=== PATIENT | female | born 1965 | race Caucasian/White ===

== ENCOUNTER 2023-11-05 14:19 | Outpatient (AMB) | payer OTHER, MEDICAID, SELFPAY ==
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
== END 2023-11-05 14:59 | disposition home or self-care (01) ==
LOC: HO.HOP 14:20
PROVIDERS: PCP Physician Assistant Medical; Visit Provider Clinical Nurse Specialist Psychiatric/Mental Health
DX: F43.12 Post-traumatic stress disorder, chronic (principal); F33.9 Major depressive disorder, recurrent, unspecified; F41.1 Generalized anxiety disorder
CPT/HCPCS: 99215

== ENCOUNTER → 2023-11-05 14:19 | Outpatient (BNVA) | payer MEDICARE, MEDICAID, SELFPAY | PROVIDERS: PCP Physician Assistant Medical; Visit Provider Clinical Nurse Specialist Psychiatric/Mental Health ==

== ENCOUNTER 2023-12-03 14:02 | Outpatient (AMB) | payer OTHER, MEDICAID, SELFPAY ==
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
== END 2023-12-03 14:46 | disposition home or self-care (01) ==
LOC: HO.HOP 14:02
PROVIDERS: PCP Physician Assistant Medical; Visit Provider Clinical Nurse Specialist Psychiatric/Mental Health
DX: F41.1 Generalized anxiety disorder (principal); F43.12 Post-traumatic stress disorder, chronic; F33.1 Major depressive disorder, recurrent, moderate
CPT/HCPCS: 99214

== ENCOUNTER → 2023-12-03 14:02 | Outpatient (BNVA) | payer OTHER, MEDICAID, SELFPAY | PROVIDERS: PCP Physician Assistant Medical; Visit Provider Clinical Nurse Specialist Psychiatric/Mental Health ==

== ENCOUNTER 2023-12-22 15:46 | Outpatient (AMB) | payer OTHER, MEDICAID, SELFPAY ==
--- OUTSIDE RECORDS SUMMARY | 2023-12-22 15:48 | XMS_ITS | Continuity of Care Document ---
Author Organization [facility] ter Address [address] [place] [id number] Care Team Providers Care Food Safety Manager Name Role Phone Diana Martinez PA-C Primary Care Physician Encounter [facility] [place] Date(s): 05/27/21 - 07/04/[address] [id number] Attending Physician: Angel Snyder MD Admitting Physician: Angel Snyder MD Allergies, Adverse Reactions, Alerts Substance Reaction Severity Status amoxicillin rash Active morphine rash Active Vibramycin question of GI bleeding Acti ve Latex C/O: itching Active contrast media (iodine-based) 1 Active 1SOB Immunizations Given and Recorded Vaccine Date Status Refusal Reason tetanus/diphtheria/pertussis, acel(Tdap) 1 11/08/12 Given FluLaval (oldterm) 2 06/07/10 Given Tetanus Toxoid Vaccine (oldterm) 09/07/02 Given 1Admin Note: VIS GIVEN DATED 09/18 2Admin Note: [employer] JAYDEN given at school Medications atorvastatin 10 mg oral tablet 1 tablet = 10 mg, By Mouth, Daily Start Date: 10/01/18 Status: Ordered baclofen 10 mg oral tablet TK 1 T PO QID Start Date: 03/29/19 Status: Ordered gabapentin 600 mg oral tablet TK 1 AND 1/2 TS PO TID Start Date: 03/29/19 Status: Ordered hydrochlorothiazide 12.5 mg oral tablet 1 tablet = 12.5 mg, By Mouth, Daily, # 30 tablet, 0 Refills, Maintenance, 03/29/19 18:00:59 EDT Start Date: 03/29/19 Status: Ordered mirtazapine 45 mg oral tablet 1 tablet = 45 mg, By Mouth, Daily at bedtime, # 30 tablet, 0 Refills, Maintenance, 03/29/19 7:55:22EDT, Tablet Start Date: 03/29/19 Status: Ordered Plenvu oral powder for reconstitution See Instructions, complete on day before procedure, # 1,000 mL, 0 Refills, Maintenance, 11/20/20 15:40:00 EDT, [id number], Partial fill upon patient request if the prescription is for a schedule II opioid drug., complete on day before... Start Date: 11/20/20 Status: Ordered Problem List Condition Effective Dates Status Health Status Inform ant Depression(Confirmed) Active Obesity (BMI 30-39.9)(Confirmed) Active PTSD - Post-traumatic stress disorder(Confirmed) Active Labral tear and piriformis inflammation right hip(Confirmed) Active Social History Social History Type Response Smoking Status Never smoker entered on: 02/16/15 Sex Female
--- OUTSIDE RECORDS SUMMARY | 2023-12-22 15:48 | XMS_ITS | Continuity of Care Document ---
Author Organization [facility] ter Address [address] [place] [id number]- Care Team Providers Care Hand Decorator Name Role Phone Castillo BREWER, Brian W Primary Care Physician [phone] Encounter [facility] Date(s): 07/17/22 - 07/17/[address] [address]- Encounter Diagnosis Chest wall pain(Final) - 07/17/22 Discharge Disposition: A-D/C Home Attending Physician: Lonny Ornelas MD Admitting Physician: Lonny Ornelas MD Referring Physician: Not on Staff, Referring MD Allergies, Adverse Reactions, Alerts Substance Reaction [...] Note: BIOMEDICAL JAYDEN given at school Medications ARIPiprazole 5 mg oral tablet TAKE 1/2 TABLET BY MOUTH DAILY WITH FOOD. Start Date: 05/25/22 Status: Ordered atorvastatin 10 mg oral tablet 1 tablet = 10 mg, By Mouth, Daily Start Date: 10/01/18 Status: Ordered Misc Rx Misc Rx, See Instructions, # 1 each, Refills 0, Tot. Refills 0, Maintenance, Outpatient Physical Therapy - Strength and balance training, 05/26/22 13:31:00 EDT, Supply Start Date: 05/26/22 Status: Ordered sertraline 100 mg oral tablet TAKE 2 TABLETS BY MOUTH EVERY DAY Start Date: 05/25/22 Status: Ordered valsartan 40 mg oral tablet TAKE 1 TABLET BY MOUTH EVERY DAY Start Date: 05/25/22 Status: Ordered Problem List Condition Confirmation Course Effective Dates Status Health St atus Informant Depression Confirmed Active Obese class I Confirmed Active Obesity (BMI 30-39.9) Confirmed Active PTSD - Post-traumatic stress disorder Confirmed Active Labral tear and piriformis inflammation right hip Confirmed Active Results Radiology Reports * Exam Date Time Procedure Performing Provider Status 07/17/22 3:[address] Abd/Pelvis W/ IV Contrast Only Kamilah Oro; Jeffrey (Verified) Notes: (CT Abd/Pelvis W/ IV Contrast Only) Reason For Exam: LUQ AP, bloody diarrhea, ?colitis;Other: RESULT: CT Abd/Pelvis W/ IV Contrast Only CT Abd/Pelvis W/ IV Contrast Only Hx of Present Illness: pt states that she woke up in the middle of the night and had pains under her rib cage, numbness across her chest and pain in her shoulder, pt with mucous and blood coming fromrectum, had a stroke 1.5months ago and feels like nothing is right; Reason: Other:; LUQ AP, bloody diarrhea, ?colitis. TECHNIQUE: Spiral CT through the abdomen and pelvis with IV contrast formatted in 3 planes. 100 cc of Omnipaque 300 was administered intravenously. This study was performed without oral contrast. Weight-based protocol using automatic tube modulation was used to optimize exposure parameters. CTDIvol Body: 19.60 mGy, DLP Body: 1118 mGy*cm. COMPARISON: CT of abdomen and pelvis dated 05/24/2022. FINDINGS: Paper Sales Manager View Findings, Lines and Tubes: None. Visualized Chest: Lung bases are clear. No pleural effusion. The heart is normal in size. No pericardial effusion. Diaphragm: Normal. Liver: Single subcentimeter circumscribed low-density lesion likely represent cyst (in the absence of known malignancy). Gallbladder: No CT evidence of gallbladder pathology. Bile ducts: No biliary ductal dilation. Spleen: Normal. Pancreas: Normal. Adrenal glands: Normal. Kidneys and ureters: No hydronephrosis, stones, or suspicious masses. Bladder: Normal. Reproductive organs: Unremarkable. Stomach, small bowel, and large bowel: Normal. Appendix: Surgically absent. Peritoneum and retroperitoneum: No ascites or pneumoperitoneum. No omental or mesenteric lesions. Lymph nodes: No enlarged lymph nodes. Blood vessels: Normal. No aneurysm. No evidence of venous thrombosis. Abdominal and pelvic wall: Expected postoperative atrophy of the left obturator internus and externus and left piriformis muscles. Bones: No acute bony abnormality. The patient is status post left total hip arthroplasty. There is degenerative change with joint space narrowing and subchondral cysts at the right hip. There is postoperative change in the lumbar spine compatible with discectomy and fusion of L3-L5. Mild multilevel degenerative changes seen in the lower thoracic spine. IMPRESSION: No acute intra-abdominal or intrapelvic process. WSN: [id number] Ordering Physician: Page Norwood Dictated By: Tiffany Mayes MD Dictated Date/Time: 07/17/22 4:16 pm Reviewed By: Tiffany Mayes MD Signed By: Tiffany Mayes MD Signed Date/Time: 07/17/22 4:16 pm Transcribed By: EUNICE Transcribed Date/Time: 07/17/22 4:10 pm * Exam Date Time Procedure Performing Provider Status 07/17/22 11:43 AM Chest 2 Views Frontal and Lat Ailyn Armenta; Auth (Verified) Notes: (Chest 2 Views Frontal and Lat) Reason For Exam: Chest Pain;Other: RESULT: Chest 2 Views Frontal and Lat Chest 2 Views Frontal and Lat HX OF PRESENT ILLNESS: pt states that she woke up in the middle of the night and had pains under her rib cage, numbness across her chest and pain in her shoulder, pt with mucous and blood coming fromrectum, had a stroke 1.5months ago and feels like nothing is right; Reason: Chest Pain COMPARISON: 06/29/2022 FINDINGS: LINES AND TUBES: None. LUNGS AND PLEURA: Clear lungs. Normal pulmonary vascularity. No pleural effusion. No pneumothorax. HEART, MEDIASTINUM AND JENY: Heart is normal in size. Normal mediastinal and hilar contour. BONES AND SOFT TISSUES: No acute abnormality. Partially visualized ACDF hardware. IMPRESSION: No evidence of acute abnormality. WSN: [id number] Ordering Physician: Anju Doss Dictated By: Tomer Storey MD Dictated Date/Time: 07/17/22 12:07 p Reviewed By: Tomer Storey MD Signed By: Tomer Storey MD Signed Date/Time: 07/17/22 12:07 pm Transcribed By: EUNICE Transcribed Date/Time: 07/17/22 12:06 pm Vital Signs Most recent to oldest [Reference Range]: 1 2 3 Height 168 cm (07/17/22 10:52 AM) Weight 95.5 kg (07/17/22 10:52 AM) Oxygen Saturation [94-100 %] 100 % (07/17/22 4:35 PM) 98 % (07/17/22 2:12 PM) 97 % (07/17/22 12:27 PM) Pulse Rate [55-90 bpm] 98 bpm *H* (07/17/22 4:35 PM) 92 bpm *H* (07/17/22 2:12 PM) 85 bpm (07/17/22 12:27 PM) Body Mass Index [18.5-24.99 kg/m2] 33.84 kg/m2 *>HHI* (07/17/22 10:52 AM) Blood Pressure [90-138/55-84 mm Hg] 121/92mm Hg (07/17/22 4:35 PM) 139/85mm Hg *H* (07/17/22 2:12 PM) 159/108mm Hg *H* (07/17/22 12:27 PM) Respiratory Rate [16-30 br/min] 18 br/min (07/17/22 4:35 PM) 16 br/min (07/17/22 2:12 PM) 14 br/min *L* (07/17/22 12:27 PM) Temperature [96.8-100.4 DegF] 98.1 DegF (07/17/22 10:52 AM) Mode of Delivery (Oxygen) Room air (07/17/22 4:35 PM) Room air (07/17/22 2:12 PM) Room air (07/17/22 12:27 PM) Blood pressure sites Arm, left (07/17/22 4:35 PM) Arm, left (07/17/22 2:12 PM) Arm, left (07/17/22 12:27 PM) Temperature Route Oral (07/17/22 10:52 AM) Dry Weight 95.5 kg (07/17/22 10:52 AM) Weight Obtained Via Patient/family state d (07/17/22 10:52 AM) Dry Weight Obtained Via Patient/family s tated (07/17/22 10:52 AM) Social History Social History Type Response Smoking Status Never smoker entered on: 02/16/15 Sex Female EKG study * Event Display: ECG 12-Lead Authored Date: Please click on pdf link to open report * Event Display: ECG 12-Lead Authored Date: Ventricular Rate: 98 BPM Atrial Rate: 98 BPM P-R Interval: 144 ms QRS Duration: 66 ms Q-T Interval: 328 ms QTC Calculation(Bazett): 418 ms P [place]: 75 degrees R [place]: 46 degrees T [place]: 67 degrees Poor data quality, interpretation may be adversely affected Normal sinus rhythm Possible Left atrial enlargement Nonspecific ST abnormality Abnormal ECG When compared with ECG of 29-JUN-2022 12:00, Minimal criteria for Inferior infarct are no longer Present Non-specific change in ST segment in Inferior leads Confirmed by EDI SUE ([id number]) on 07/17/2022 1:33:11 PM [place]: EDI SUE Note * Page Marks: PERFORM Event Display: Patient Education Leaflets Authored Date: [id number] Acute Pain, Uncertain Cause ?? [id number] Acute Pain, Uncertain Cause Pain can be caused by many conditions that range from very minor to very serious. In some cases, though, pain comes and goes with no apparent cause. We were not able to find the exact cause for your pain. At this time there is no sign of any serious illness causing your pain. More tests may be needed to determine the cause. In many cases, pain like this goes away by itself. Home care Take any medicines as prescribed. If another medicine was not prescribed for pain, you can take an xblv-ywd-uxlkupl pain medicine such as ibuprofen or acetaminophen. Use these as directed on the label. Talk with your healthcare provider before taking emwf-fld-pnbcian pain medicine if you have a history of kidney or liver problems or bleeding in the stomach, or have heart disease. ?? Follow-up care Follow up with your??healthcare provider??or our staff as directed. ?? When to seek medical advice Call your healthcare provider for any of the following: ??? Pain changes in pattern ??? Pain doesn't lessen or gets worse ??? New symptoms appear ??? Fever??of 100.4??F (38??C) or higher,??or as directed by your healthcare provider ?? Last Reviewed Date: 2021 ?? [id number] [employer]. All rights reserved. This information is not intended as a substitute for professional medical care. Always follow your healthcare professional's instructions. ?? * Page Marks: PERFORM Event Display: Patient Education Leaflets Authored Date: [id number] Uncertain Causes of Chest Pain ?? [id number] Uncertain Causes of Chest Pain Chest pain can happen for a number of reasons. Sometimes the cause can't be determined. If your??condition does not seem serious, and your pain does not appear to be coming from your heart, your healthcare provider may recommend watching it closely. Sometimes the signs of a serious problem take more time to appear. Many problems not related to your heart can cause chest pain. These include: ??? Musculoskeletal. Costochondritis is an inflammation of the tissues around the ribs that can occur from trauma or overuse injuries, or a strain of the muscles of the chest wall. ??? Respiratory. Pneumonia, collapsed lung (pneumothorax), or inflammation of the lining of the chest and lungs (pleurisy). ??? Gastrointestinal. Esophageal reflux, heartburn, ulcers, or gallbladder disease. ??? Anxiety and panic disorders ??? Nerve compression and inflammation ??? Rare problems such as aortic aneurysm or aortic dissection (a swelling of the large artery coming out of the heart or a tear in the wall of the artery), or pulmonary embolism (a blood clot in the lungs). Home care After your visit, follow these recommendations: ??? Rest today and avoid strenuous activity. ??? Take any prescribed medicine as directed. ??? Be aware of any recurrent chest pain and notice any changes ?? Follow-up care Follow up with your healthcare provider if you don't start to feel better within 24 hours, or as advised. ?? Call 911 Call 911 if any of these occur: ??? A change in the type of pain: if it feels different, becomes more severe, lasts longer, or begins to spread into your shoulder, arm, neck, jaw or back ??? Shortness of breath or increased pain with breathing ??? Weakness, dizziness, or fainting ??? Rapid heartbeat ??? Crushing sensation in your chest ??? Coughing up more than a small amount of blood. ?? When to seek medical advice Call your healthcare provider right away if any of the following occur: ??? Cough with dark coloredsputum (phlegm) or small amount of blood ??? Fever of 100.4??F??(38??C) or higher, or as directed by your healthcare provider ??? Swelling, pain or redness in one leg ?? Last Reviewed Date: 2021 ?? [id number] [employer]. All rights reserved. This information is not intended as a substitute for professional medical care. Always follow your healthcare professional's instructions. ?? * KIMMIE De La Rosa S: Tomer Conte MD: VERIFY Event Display: Result: Authored Date: [id number] Chest 2 Views Frontal and Lat HX OF PRESENT ILLNESS: pt states that she woke up in the middle of the night and had pains under her rib cage, numbness across her chest and pain in her shoulder, pt with mucous and blood coming fromrectum, had a stroke 1.5months ago and feels like nothing is right; Reason: Chest Pain COMPARISON: 06/29/2022 FINDINGS: LINES AND TUBES: None. LUNGS AND PLEURA: Clear lungs. Normal pulmonary vascularity. No pleural effusion. No pneumothorax. HEART, MEDIASTINUM AND JENY: Heart is normal in size. Normal mediastinal and hilar contour. BONES AND SOFT TISSUES: No acute abnormality. Partially visualized ACDF hardware. IMPRESSION: No evidence of acute abnormality. WSN: [id number] Ordering Physician: Anju Doss Dictated By: Tomer Storey MD Dictated Date/Time: 07/17/22 12:07 p Reviewed By: Tomer Storey MD Signed By: Tomer Storey MD Signed Date/Time: 07/17/22 12:07 pm Transcribed By: EUNICE Transcribed Date/Time: 07/17/22 12:[address] Abdomen and Pelvis W contrast IV * KIMMIE De La Rosa S: Tiffany Grimm MD: VERIFY Event Display: Result: Authored Date: [id number] CT Abd/Pelvis W/ IV Contrast Only Hx of Present Illness: pt states that she woke up in the middle of the night and had pains under her rib cage, numbness across her chest and pain in her shoulder, pt with mucous and blood coming fromrectum, had a stroke 1.5months ago and feels like nothing is right; Reason: Other:; LUQ AP, bloody diarrhea, ?colitis. TECHNIQUE: Spiral CT through the abdomen and pelvis with IV contrast formatted in 3 planes. 100 cc of Omnipaque 300 was administered intravenously. This study was performed without oral contrast. Weight-based protocol using automatic tube modulation was used to optimize exposure parameters. CTDIvol Body: 19.60 mGy, DLP Body: 1118 mGy*cm. COMPARISON: CT of abdomen and pelvis dated 05/24/2022. FINDINGS: Paper Sales Manager View Findings, Lines and Tubes: None. Visualized Chest: Lung bases are clear. No pleural effusion. The heart is normal in size. No pericardial effusion. Diaphragm: Normal. Liver: Single subcentimeter circumscribed low-density lesion likely represent cyst (in the absence of known malignancy). Gallbladder: No CT evidence of gallbladder pathology. Bile ducts: No biliary ductal dilation. Spleen: Normal. Pancreas: Normal. Adrenal glands: Normal. Kidneys and ureters: No hydronephrosis, stones, or suspicious masses. Bladder: Normal. Reproductive organs: Unremarkable. Stomach, small bowel, and large bowel: Normal. Appendix: Surgically absent. Peritoneum and retroperitoneum: No ascites or pneumoperitoneum. No omental or mesenteric lesions. Lymph nodes: No enlarged lymph nodes. Blood vessels: Normal. No aneurysm. No evidence of venous thrombosis. Abdominal and pelvic wall: Expected postoperative atrophy of the left obturator internus and externus and left piriformis muscles. Bones: No acute bony abnormality. The patient is status post left total hip arthroplasty. There is degenerative change with joint space narrowing and subchondral cysts at the right hip. There is postoperative change in the lumbar spine compatible with discectomy and fusion of L3-L5. Mild multilevel degenerative changes seen in the lower thoracic spine. IMPRESSION: No acute intra-abdominal or intrapelvic process. WSN: [id number] Ordering Physician: Page Norwood Dictated By: Tiffany Mayes MD Dictated Date/Time: 07/17/22 4:16 pm Reviewed By: Tiffany Mayes MD Signed By: Tiffany Mayes MD Signed Date/Time: 07/17/22 4:16 pm Transcribed By: EUNICE Transcribed Date/Time: 07/17/22 4:10 pm Patient Care team information Care Team Personnel Name: Ho AVERY, Mara Kim Position: [facility] RN Member Role: Primary Care Nurse Name: Lynette Beard RN Position: [facility] RN Member Role: Primary Care Nurse Name: Castillo CARPET MECHANIC, Brian Guerrero Position: Reference Physician Member Role: PCP Address: Address: [address] [place] [address], [address] [place] [address] Name: Azalea Macedo RN Position: [facility] OB RN Member Role: Primary Care Nurse Name: Lonny Ornelas MD Position: [facility] ED Medicine MD Member Role: Admitting Physician Address: Address: [address] [place] [address] Name: Page Marks Position: [facility] Associate Professional Member Role: ED Physician Glassware Selector Address: Address: [address] [place] [address]- Name: Virgie Durán RN Position: [facility] ED RN W/OE and Tasks Member Role: Patient Care Provider Name: Lindsay Briones Position: [facility] ED TA [facility] Member Role: Inside Sales Agent Care Team Related Persons Name: JUAN ASIF Address: [address] [address]
--- OUTSIDE RECORDS SUMMARY | 2023-12-22 15:48 | XMS_ITS | Continuity of Care Document ---
Author Organization [facility] Address [address] [facility], [address] Floor, [address] [place] [address]- Care Team Providers Care Industrial Engineering Name Role Phone Castillo LAY UP OPERATOR, Brian W Primary Care Physician [phone] Encounter [facility] Date(s): 07/03/22 - 08/02/22 [facility] [address], [address], [address] [place] [address]- Allergies, Adverse Reactions, Alerts Substance Reaction Severity Status amoxicillin rash Active morphine rash Active contrast media (iodine-based) 1 Active Latex C/O: itching Active Vibramycin question of GI bleeding Acti ve 1SOB Immunizations Given and Recorded Vaccine Date [...] and piriformis inflammation right hip Confirmed Active Social History Social History Type Response Smoking Status Never smoker entered on: 02/16/15 Sex Female Patient Care team information Care Team Personnel Name: Mara Teague RN Position: S RN Member Role: Primary Care Nurse Name: Lynette Beard RN Position: S RN Member Role: Primary Care Nurse Name: Castillo LAY UP OPERATOR, Brian Guerrero Position: Reference Physician Member Role: PCP Address: Address: [address] [place] [address], [address] Name: Azalea Macedo RN Position: [facility] OB RN Member Role: Primary Care Nurse Care Team Related Persons Name: JUAN ASIF Address: [address] [place] [address]
--- OUTSIDE RECORDS SUMMARY | 2023-12-22 15:48 | XMS_ITS | Continuity of Care Document ---
Author Organization [facility] Address [address] [facility], [address] Floor, [address] [place] [address]- Care Team Providers Care Brine Mixer Operator Name Role Phone Diana Martinez PA-C Primary Care Physician [place] [facility] [place]12[place] - 12/12/22 [facility] [address], [address], [address] [place] [address] Attending Physician: Jacquelyn Ryder Admitting Physician: AdmtrJacquelyn Referring Physician: Admtr, ArRenetta Allergies, Adverse Reactions, Alerts Substance Reaction Severity [...] Mouth, Daily Start Date: 10/01/18 Status: Ordered LaMICtal 25 mg oral tablet See Instructions, strat with 1 tablet at bedtime increase to 1 tablet By Mouth 2 times a day after 2 weeks, disp 30 days, # 60 tablet, Refills 0, Tot. Refills 0, Maintenance, 10/15/22 16:16:00 EST, Instructions Replace Required Details, Route to Pharm... Start Date: 10/15/22 Status: Ordered LaMICtal 25 mg oral tablet See Instructions, take 1 tab in the am and 2 at bedtime and after 2 weeks take 2 tablet By Mouth 2 times a day, # 120 tablet, Refills 3, Tot. Refills 3, Maintenance, 11/12/22 10:35:00 EST, Instructions Replace Required Details, Route to Pharmacy Elec... Start Date: 11/12/22 Status: Ordered levETIRAcetam 500 mg oral tablet 1 tablet = 500 mg, By Mouth, 2 times a day, # 180 tablet, 0 Refills, Maintenance, 09/11/22 15:33:00EST, Tablet, Partial fill upon patient request if the prescription is for a schedule II opioid drug. Start Date: 09/11/22 Status: Ordered Misc Rx Misc Rx, See Instructions, # 1 each, Refills 0, Tot. Refills 0, Maintenance, Outpatient Physical Therapy - Strength and balance training, 05/26/22 13:31:00 EDT, Supply Start Date: 05/26/22 Status: Ordered naproxen-sumatriptan 500 mg-85 mg oral tablet 1 tablet, By Mouth, Once, PRN as needed for migraine headache, not more than one dose i 24 hr, takewith fluids and cold water, # 10 tablet, 0 Refills, Soft Stop, 09/11/22 15:18:00 EST, Tablet, [facility]/pharmacy #[id number], Partial fill upon patient request if... Start Date: 09/11/22 Status: Ordered sertraline 100 mg oral tablet TAKE 2 TABLETS BY MOUTH EVERY DAY Start Date: 05/25/22 Status: Ordered sertraline 100 mg oral tablet TAKE 2 TABLETS BY MOUTH EVERY DAY Start Date: 10/15/22 Status: Ordered valsartan 40 mg oral tablet [...] Team Personnel Name: Mara Teague RN Position: [facility] RN Member Role: Primary Care Nurse Name: Lynette Beard RN Position: S RN Member Role: Primary Care Nurse Name: Diana Martinez PA-C Position: Reference Physician Member Role: PCP Address: Address: [address] [place] [address] Name: Azalea Macedo RN Position: [facility] OB RN Member Role: Primary Care Nurse Care Team Related Persons Name: LAYASOHAMIE Address: [address] [place] [address]
--- OUTSIDE RECORDS SUMMARY | 2023-12-22 15:48 | XMS_ITS | Continuity of Care Document ---
Author Organization [facility] Address [address] [place] [address]- Care Team Providers Care Internet Researcher Name Role Phone Castillo VEGETABLE LOADER, Brian W Primary Care Physician [place] [facility] [place] 09/04/22 - 10/04/[address] [address] Attending Physician: Jacquelyn Ryder Admitting Physician: AdmJacquelyn veras Referring Physician: AdmtrJacquelyn Allergies, Adverse Reactions, Alerts Substance Reaction Severity [...] Mouth, Daily Start Date: 10/01/18 Status: Ordered levETIRAcetam 500 mg oral tablet [...] Refills, Soft Stop, 09/11/22 15:18:00 EST, Tablet, [id number], Partial fill upon patient request if... [...] Personnel Name: Ho AVERY, Mara Kim Position: S RN Member Role: Primary Care Nurse Name: Lynette Beard RN Position: S RN Member Role: Primary Care Nurse Name: Brian Chong NP Position: Reference Physician Member Role: PCP Address: Address: [address] [place] [address], [address] Name: Azalea Macedo RN Position: S OB RN Member Role: Primary Care Nurse Care Team Related Persons Name: JUAN ASIF Address: home [address] [place] [address] [place] [address]
--- OUTSIDE RECORDS SUMMARY | 2023-12-22 15:48 | XMS_ITS | Continuity of Care Document ---
Author Organization [facility] ter Address [address] [place] [address]- Care Team Providers Care Tax Representative Name Role Phone Diana Martinez PA-C Primary Care Physician Encounter [facility] Date(s): 06/29/22 - 06/29/[address] [address]- Discharge Disposition: A-D/C Home Attending Physician: Mark Marquez DO Admitting Physician: Mark Marquez DO Referring Physician: Not on Staff, Referring MD [...] atus Informant Depression Confirmed Active Obese class II Confirmed Active Obesity (BMI 30-39.9) Confirmed Active PTSD - Post-traumatic stress disorder Confirmed Active Labral tear and piriformis inflammation right hip Confirmed Active Results Radiology Reports * Exam Date Time Procedure Performing Provider Status 06/29/22 12:04 PM Chest Portable Faye Walter; Au th (Verified) Notes: (Chest Portable) Reason For Exam: Stroke;Other: RESULT: Chest Portable Chest Portable Hx of Present Illness: pt woke with lower lip numbness last well time [address] to ED . see neurologist for hydroceph. pt states having difficulty finding words; COMPARISON: 03/29/2019 FINDINGS: LINES AND TUBES: None. LUNGS AND PLEURA: Clear lungs. Normal pulmonary vascularity. No pleural effusion. No pneumothorax. HEART, MEDIASTINUM AND JENY: Heart is normal in size. Normal mediastinal and hilar contour. BONES AND SOFT TISSUES: No acute abnormality. IMPRESSION: No acute abnormality. WSN: [id number] Ordering Physician: Va Murphy Dictated By: Edward Yip MD Dictated Date/Time: 06/29/22 12:23 p Reviewed By: Edward Yip MD Signed By: Edwrad Yip MD Signed Date/Time: 06/29/22 12:23 pm Transcribed By: EUNICE Transcribed Date/Time: 06/29/22 12:22 pm Vital Signs Most recent to oldest [Reference Range]: 1 2 3 Oxygen Saturation [94-100 %] 99 % (06/29/22 3:00 PM) 99 % (06/29/22 12:48 PM) 96 % (06/29/22 11:01 AM) Pulse Rate [55-90 bpm] 74 bpm (06/29/22 3:00 PM) 85 bpm (06/29/22 12:48 PM) 82 bpm (06/29/22 11:01 AM) Blood Pressure [90-138/55-84 mm Hg] 148/82mm Hg *H* (06/29/22 3:00 PM) 142/79mm Hg *H* (06/29/22 12:48 PM) 150/71mm Hg *H* (06/29/22 11:01 AM) Respiratory Rate [16-30 br/min] 14 br/min *L* (06/29/22 3:00 PM) 16 br/min (06/29/22 12:48 PM) 26 br/min (06/29/22 11:01 AM) Temperature [96.8-100.4 DegF] 98.7 DegF (06/29/22 11:01 AM) 98.4 DegF (06/29/22 10:31 AM) Mode of Delivery (Oxygen) Room air (06/29/22 3:00 PM) Room air (06/29/22 12:48 PM) Room air (06/29/22 11:01 AM) Blood pressure sites Arm, left (06/29/22 3:00 PM) Arm, left (06/29/22 12:48 PM) Arm, left (06/29/22 11:01 AM) Temperature Route Oral (06/29/22 11:01 AM) Oral (06/29/22 10:31 AM) Social History Social History Type Response Smoking Status Never smoker entered on: 02/16/15 Sex Female Portable XR Chest Views * BHSPowerscribe , CIS S: TRANSCRIBE Edward Yip MD: VERIFY Event Display: Result: Authored Date: Chest Portable Hx of Present Illness: pt woke with lower lip numbness last well time [address] to ED . see neurologist for hydroceph. pt states having difficulty finding words; COMPARISON: 03/29/2019 FINDINGS: LINES AND TUBES: None. LUNGS AND PLEURA: Clear lungs. Normal pulmonary vascularity. No pleural effusion. No pneumothorax. HEART, MEDIASTINUM AND JENY: Heart is normal in size. Normal mediastinal and hilar contour. BONES AND SOFT TISSUES: No acute abnormality. IMPRESSION: No acute abnormality. WSN: [id number] Ordering Physician: Va Murphy Dictated By: Edward Yip MD Dictated Date/Time: 06/29/22 12:23 p Reviewed By: Edward Yip MD Signed By: Edward Yip MD Signed Date/Time: 06/29/22 12:23 pm Transcribed By: EUNICE Transcribed Date/Time: 06/29/22 12:22 pm Patient Care team information Personnel Name: Diana Martinez PA-C Address: Address: [address] [place] [address]
--- OUTSIDE RECORDS SUMMARY | 2023-12-22 15:48 | XMS_ITS | Continuity of Care Document ---
Author Organization [facility] Address [address] [place] [address]- Care Team Providers Care Payroll Master Name Role Phone Castillo HEAT PLANT SPECIALIST, Brian W Primary Care Physician [phone] Encounter [facility] Date(s): 11/20/20 - 12/20/20 [facility] [address] [place] [address] Attending Physician: Jacquelyn Ryder Admitting Physician: AdmtrJacquelyn Referring Physician: AdmtrJacquelyn Allergies, Adverse Reactions, Alerts [...] mL, 0 Refills, Maintenance, 11/20/20 15:40:00 EDT, [facility] #[id number], Partial fill upon patient request if the [...]
--- OUTSIDE RECORDS SUMMARY | 2023-12-22 15:48 | XMS_ITS | Continuity of Care Document ---
Author Organization [facility] Address [address] [place] [address]- Care Team Providers Care Senior Electronics Technician Name Role Phone Diana Martinez PA-C Primary Care Physician Encounter [facility] Date(s): 11/28/22 - 05/05/[address] [address]- Encounter Diagnosis Attention and concentration deficit(Final) - Discharge Disposition: A-D/C Home Attending Physician: Jose Napier MD Admitting Physician: Jose Napier MD Referring Physician: Jose Napier MD Allergies, Adverse Reactions, Alerts Substance Reaction Severity Status amoxicillin rash Active Latex C/O: itching Active contrast media (iodine-based) 1 Active morphine rash Active Vibramycin question of [...] Refills, Soft Stop, 09/11/22 15:18:00 EST, Tablet, [facility]/pharm[facility] #[id number], Partial fill upon patient [...] Status Never smoker entered on: 02/16/15 Sex Patient Care team information Care Team Personnel Name: Ho AVERY, Mara Kim Position: Gretchen RN Member Role: Primary Care Nurse Name: Lynette Beard RN Position: S RN Member Role: Primary Care Nurse Name: Diana Martinez PA-C Position: Reference Physician Member Role: PCP Address: Address: [address] [place] [address] Name: Azalea Macedo RN Position: [facility] OB RN Member Role: Primary Care Nurse Care Team Related Persons Name: JUAN ASIF Address: [address] [place] [address]
--- OUTSIDE RECORDS SUMMARY | 2023-12-22 15:48 | XMS_ITS | Continuity of Care Document ---
Author Organization [facility] ter Address [address] [place] [address]- Care Team Providers Care Sprayer Hand Name Role Phone Diana Martinez PA-C Primary Care Physician Encounter [facility] [place] [facility] Date(s): 02/10/23 - 02/10/[address] [address]- Encounter Diagnosis Right hip pain(Final) - 02/10/23 Discharge Disposition: Transferred to short-term general hospit Attending Physician: Aleisha Bartlett DO Admitting Physician: Aleisha Bartlett DO Referring Physician: Not on Staff, Referring [...] Mouth, Daily Start Date: 10/01/18 Status: Ordered Dilaudid Inj 2 mg, Injection, IV Push Slowly, Every 15 minutes for 3 doses/times, PRN for Pain , Moderate, and SBP greater than 100, STAT, 02/10/23 12:44:00 EDT, Stop date Limited # of times Start Date: 02/10/23 Status: Ordered HYDROmorphone Inj 2 mg, Injection, IV Push Slowly, Once, STAT, 02/10/23 15:49:00 EDT, Stop date 02/10/23 15:49:00 EDT Start Date: 02/10/23 Stop Date: 02/10/23 Status: Completed LaMICtal 25 mg oral tablet See Instructions, [...] Refills, Soft Stop, 09/11/22 15:18:00 EST, Tablet, [facility]/pharmacy #[id number], Partial fill upon patient request if... Start [...] Exam Date Time Procedure Performing Provider Status 02/10/23 4:[address] Ext Lower W/O Contrast Right Chema Bernal adriel; Jeffrey (Verified) Notes: (CT Ext Lower W/O Contrast Right) Reason For Exam: Fracture RESULT: CT Ext Lower W/O Contrast Right CT Ext Lower W/O Contrast Right Hx of Present Illness: Right hip dislocation; Reason: Fracture; Clinical Question(s): Hip TECHNIQUE: Helical CT without contrast formatted in 3 planes. Weight-based protocol using automatictube modulation was used to optimize exposure parameters. CTDIvol Body: 15.13 mGy, DLP Body: 442 mGy*cm. COMPARISONS: Same day radiographs 07/17/2022 FINDINGS: Bones and joints: Status post right total hip arthroplasty. The arthroplasty is anteriorly and superior dislocated. No periprosthetic fracture or evidence of loosening. Soft Tissues: Small amount of muscular edema is noted in the initial femoral space. No hematoma. IMPRESSION: Right anterior superior hip prosthesis dislocation. No periprosthetic fracture. WSN: [id number] Ordering Physician: Kristyn Davis Dictated By: Yared Crocker MD Dictated Date/Time: 02/10/23 4:39 pm Reviewed By: Yared Crocker MD Signed By: Yared Crocker MD Signed Date/Time: 02/10/23 4:39 pm Transcribed By: EUNICE Transcribed Date/Time: 02/10/23 4:35 pm * Exam Date Time Procedure Performing Provider Status 02/10/23 1:52 PM XR Femur 1 View Right Sloane Butler (Verified) Notes: (XR Femur 1 View Right) Reason For Exam: Pain RESULT: XR Femur 1 View Right Pelvis 1 or 2 Views, XR Femur 1 View Right Hx of Present Illness: L hip dislocation; Reason: Pain; Clinical Question(s): Other: COMPARISON: Abdomen pelvis CT 07/17/2022 FINDINGS: Superior right hip dislocation. No evidence of fracture IMPRESSION: Right hip dislocation An actionable message (Sharkey) has been communicated via the [employer] system on 02/10/2023 1:54 PM, Message ID [id number]. WSN: [id number] Ordering Physician: Kristyn Davis Dictated By: Fareed Pierre MD Dictated Date/Time: 02/10/23 1:54 pm Reviewed By: Fareed Pierre MD Signed By: Fareed Pierre MD Signed Date/Time: 02/10/23 1:54 pm Transcribed By: EUNICE Transcribed Date/Time: 02/10/23 1:53 pm * Exam Date Time Procedure Performing Provider Status 02/10/23 1:52 PM Pelvis 1 or 2 Views Sharee Butler; Tong jones (Verified) Notes: (Pelvis 1 or 2 Views) Reason For Exam: Pain RESULT: Pelvis 1 or 2 Views Pelvis 1 or 2 Views, XR Femur 1 View Right Hx of Present Illness: L hip dislocation; Reason: Pain; Clinical Question(s): Other: COMPARISON: Abdomen pelvis CT 07/17/2022 FINDINGS: Superior right hip dislocation. No evidence of fracture IMPRESSION: Right hip dislocation An actionable message (Sharkey) has been communicated via the [employer] system on 02/10/2023 1:54 PM, Message ID [id number]. WSN: [id number] Ordering Physician: Kristyn Davis Dictated By: Fareed Pierre MD Dictated Date/Time: 02/10/23 1:54 pm Reviewed By: Fareed Pierre MD Signed By: Fareed Pierre MD Signed Date/Time: 02/10/23 1:54 pm Transcribed By: EUNICE Transcribed Date/Time: 02/10/23 1:53 pm Vital Signs Most recent to oldest [Reference Range]: 1 2 3 Oxygen Saturation [94-100 %] 100 % (02/10/23 4:29 PM) 100 % (02/10/23 2:48 PM) Pulse Rate [55-90 bpm] 74 bpm (02/10/23 4:29 PM) 76 bpm (02/10/23 2:48 PM) 100 bpm *H* (02/10/23 1:17 PM) Blood Pressure [90-138/55-84 mm Hg] 109/64mm Hg (02/10/23 4:29 PM) 164/90mm Hg *H* (02/10/23 2:48 PM) 170/77mm Hg *H* (02/10/23 1:17 PM) Respiratory Rate [16-30 br/min] 18 br/min (02/10/23 4:45 PM) 18 br/min (02/10/23 4:29 PM) 15 br/min *L* (02/10/23 3:51 PM) Temperature [96.8-100.4 DegF] 97.9 DegF (02/10/23 12:27 PM) Mode of Delivery (Oxygen) Room air (02/10/23 4:29 PM) Social History Social History Type Response Smoking Status Never smoker entered on: 02/16/15 Sex XR Femur - right Single view * Estrella , KIMMIE S: TRANSCRIFareed Corrales MD: VERIFY Event Display: Result: Authored Date: Pelvis 1 or 2 Views, XR Femur 1 View Right Hx of Present Illness: L hip dislocation; Reason: Pain; Clinical Question(s): Other: COMPARISON: Abdomen pelvis CT 07/17/2022 FINDINGS: Superior right hip dislocation. No evidence of fracture IMPRESSION: Right hip dislocation An actionable message (Sharkey) has been communicated via the [employer] system on 02/10/2023 1:54 PM, Message ID [id number]. WSN: [id number] Ordering Physician: Kristyn Davis Dictated By: Fareed Pierre MD Dictated Date/Time: 02/10/23 1:54 pm Reviewed By: Fareed Pierre MD Signed By: Fareed Pierre MD Signed Date/Time: 02/10/23 1:54 pm Transcribed By: EUNICE Transcribed Date/Time: 02/10/23 1:53 pm XR Pelvis 1 or 2 Views * Estrella , KIMMIE S: TRANSCRIFareed Corrales MD: VERIFY Event Display: Result: Authored Date: [id number] Pelvis 1 or 2 Views, XR Femur 1 View Right Hx of Present Illness: L hip dislocation; Reason: Pain; Clinical Question(s): Other: COMPARISON: Abdomen pelvis CT 07/17/2022 FINDINGS: Superior right hip dislocation. No evidence of fracture IMPRESSION: Right hip dislocation An actionable message (Sharkey) has been communicated via the [employer] system on 02/10/2023 1:54 PM, Message ID [id number]. WSN: [id number] Ordering Physician: Kristyn Davis Dictated By: Fareed Pierre MD Dictated Date/Time: 02/10/23 1:54 pm Reviewed By: Fareed Pierre MD Signed By: Fareed Pierre MD Signed Date/Time: 02/10/23 1:54 pm Transcribed By: EUNICE Transcribed Date/Time: 02/10/23 1:[address] Lower extremity WO contrast * BHSPowers[employer] , CIS S: TRANSCRIBE Yared Crocker MD: VERIFY Event Display: Result: Authored Date: CT Ext Lower W/O Contrast Right Hx of Present Illness: Right hip dislocation; Reason: Fracture; Clinical Question(s): Hip TECHNIQUE: Helical CT without contrast formatted in 3 planes. Weight-based protocol using automatictube modulation was used to optimize exposure parameters. CTDIvol Body: 15.13 mGy, DLP Body: 442 mGy*cm. COMPARISONS: Same day radiographs 07/17/2022 FINDINGS: Bones and joints: Status post right total hip arthroplasty. The arthroplasty is anteriorly and superior dislocated. No periprosthetic fracture or evidence of loosening. Soft Tissues: Small amount of muscular edema is noted in the initial femoral space. No hematoma. IMPRESSION: Right anterior superior hip prosthesis dislocation. No periprosthetic fracture. WSN: [id number] Ordering Physician: Kristyn Davis Dictated By: Yared Crocker MD Dictated Date/Time: 02/10/23 4:39 pm Reviewed By: Yared Crocker MD Signed By: Yared Crocker MD Signed Date/Time: 02/10/23 4:39 pm Transcribed By: EUNICE Transcribed Date/Time: 02/10/23 4:35 pm Patient Care team information Care Team Personnel Name: Mara Teague RN Position: [facility] RN Member Role: Primary Care Nurse Name: Lynette Beard RN Position: [facility] RN Member Role: Primary Care Nurse Name: Diana Martinez PA-C Position: Reference Physician Member Role: PCP Address: Address: [address] [place] [address]- [place] Name: Azalea Macedo RN Position: [facility] OB RN Member Role: Primary Care Nurse Name: *[facility], ED Attending Position: [facility] ED Attendings Patient Name: Suze Tobias RN Position: [facility] ED RN W/OE and Tasks Member Role: Patient Care Provider Name: Sharee Busby MD Position: [facility] ED Medicine MD Member Role: ED Attending Physician Address: Address: [address] [place] [address] [place] [address]- [place] Name: Yamileth Preciado Position: [facility] ED TA [facility] Care Team Related Persons Name: JUAN ASIF Address: home [address] [place] [address]
--- OUTSIDE RECORDS SUMMARY | 2023-12-22 15:48 | XMS_ITS | Continuity of Care Document ---
Author Organization [facility] Address [address] [place] [address]- Care Team Providers Care Component Assembler Supervisor Name Role Phone Diana Martinez PA-C Primary Care Physician [phone] Encounter [facility] Date(s): 04/10/21 - 05/10/[address] [address] Allergies, Adverse Reactions, Alerts Substance Reaction Severity [...] mL, 0 Refills, Maintenance, 11/20/20 15:40:00 EDT, [facility] #[id number], Partial fill upon patient request if the [...]
--- OUTSIDE RECORDS SUMMARY | 2023-12-22 15:48 | XMS_ITS | Continuity of Care Document ---
Author Organization [facility] Address [address] [place] [address]- Care Team Providers Care Wet Room Supervisor Name Role Phone Diana Martinez PA-C Primary Care Physician [phone] Encounter [id number] Date(s): 11/28/22 - 12/28/[address] [address]- Attending Physician: Jacquelyn Ryder Admitting Physician: AdmtrJacquelyn Referring Physician: Admtr, Jacquelyn Allergies, Adverse Reactions, Alerts Substance Reaction Severity Status amoxicillin rash Active contrast media (iodine-based) 1 Active morphine rash Active Vibramycin question of GI bleeding Acti ve Latex C/O: itching Active 1SOB Immunizations Given and Recorded Vaccine [...] Team Personnel Name: Mara Teague RN Position: [facility] RN Member Role: Primary Care Nurse Name: Lynette Beard RN Position: [facility] RN Member Role: Primary Care Nurse Name: Diana Martinez PA-C Position: Reference Physician Member Role: PCP Address: Address: [address] [place] [id number] [place] [address] Name: Azalea Macedo RN Position: [facility] OB RN Member Role: Primary Care Nurse Care Team Related Persons Name: JUAN ASIF Address: [address] [place] [address]
--- OUTSIDE RECORDS SUMMARY | 2023-12-22 15:48 | XMS_ITS | Continuity of Care Document ---
Author Organization [facility] Address [address] [place] [address]- Care Team Providers Care Pbx Teacher Name Role Phone Castillo BREWER, Brian W Primary Care Physician [phone] Encounter [facility] Date(s): 09/11/22 - 10/11/22 [facility] [address] [place] [address]- [place] Allergies, Adverse Reactions, Alerts Substance Reaction Severity [...] Soft Stop, 09/11/22 15:18:00 EST, Tablet, [id number], Partial fill upon patient request if... Start [...] Member Role: Primary Care Nurse Name: Castillo ROLLER MAN, Brian Guerrero Position: Reference Physician Member Role: PCP Address: Address: [address] [place] [address], [address] Name: Azalea Macedo RN Position: [facility] OB RN Member Role: Primary Care Nurse Care Team Related Persons Name: JUAN ASIF Address: home [address] [place] [address] [place] [address]
--- OUTSIDE RECORDS SUMMARY | 2023-12-22 15:48 | XMS_ITS | Continuity of Care Document ---
Author Organization [facility] Address [address] [place] [address]- Care Team Providers Care Senior Marketing Specialist Name Role Phone Diana Martinez PA-C Primary Care Physician Encounter [facility] [id number] Date(s): 03/06/23 - 04/05/[address] [address] Attending Physician: Jacquelyn Ryder Admitting Physician: [...] Reference Physician Member Role: PCP Address: Address: [address] [place] [address]- [place] Name: Azalea Macedo RN Position: [facility] OB RN Member Role: Primary Care Nurse Care Team Related Persons Name: JUAN ASIF Address: [address] [address]
--- OUTSIDE RECORDS SUMMARY | 2023-12-22 15:48 | XMS_ITS | Continuity of Care Document ---
Author Organization [facility] ter Address [address] [place] [address]- Care Team Providers Care Split And Drum Room Supervisor Name Role Phone Diana Martinez PA-C Primary Care Physician Encounter [facility] Date(s): 05/24/22 - 05/26/[address] [address]- Encounter Diagnosis Weakness(Final) - 05/24/22 Discharge Disposition: A-D/C Home Attending Physician: Jesus NATHAN, Vikramtalha Admitting Physician: Wade Villalobos MD Referring Physician: Not on Staff, Referring MD Allergies, Adverse Reactions, Alerts Substance Reaction Severity Status amoxicillin rash Active contrast media (iodine-based) 1 Active Latex C/O: itching Active morphine rash Active Vibramycin question of [...] Status: Ordered valsartan 40 mg oral tablet 40 mg, Tablet, By Mouth, 05/26/22 9:00:00 EDT Start Date: 05/26/22 Stop Date: 05/26/22 Status: Completed Problem List Condition Effective Dates Status Health Status Inform ant Depression(Confirmed) Active Obese class II(Confirmed) Active Obesity (BMI 30-39.9)(Confirmed) Active PTSD - Post-traumatic stress disorder(Confirmed) Active Labral tear and piriformis inflammation right hip(Confirmed) Active Vital Signs Most recent to oldest [Reference Range]: 1 2 3 Height 165 cm (05/26/22 12:13 PM) 165 cm (05/26/22 8:21 AM) 165 cm (05/26/22 3:51 AM) Weight 98.4 kg (05/25/22 7:15 AM) 98 kg (05/24/22 6:19 PM) Oxygen Saturation [94-100 %] 94 % (05/26/22 12:13 PM) 98 % (05/26/22 8:21 AM) 96 % (05/26/22 3:51 AM) Pulse Rate [55-90 bpm] 78 bpm (05/26/22 12:13 PM) 71 bpm (05/26/22 8:21 AM) 77 bpm (05/26/22 3:51 AM) Body Mass Index [18.5-24.99] 36.14 *>HHI* (05/25/22 7:15 AM) Blood Pressure [90-138/55-84 mm Hg] 149/88mm Hg *H* (05/26/22 12:13 PM) 134/80mm Hg (05/26/22 8:39 AM) 134/80mm Hg (05/26/22 8:21 AM) Respiratory Rate [16-30 br/min] 18 br/min (05/26/22 12:13 PM) 16 br/min (05/26/22 8:21 AM) 189 br/min *H* (05/26/22 3:51 AM) Temperature [96.8-100.4 DegF] 97.7 DegF (05/26/22 12:13 PM) 97.6 DegF (05/26/22 8:21 AM) 98.3 DegF (05/26/22 3:51 AM) Mode of Delivery (Oxygen) Nasal cannula (05/26/22 3:51 AM) Room air (05/25/22 11:13 PM) Room air (05/25/22 7:32 PM) Blood pressure sites Arm, right (05/26/22 12:13 PM) Arm, right (05/26/22 8:21 AM) Arm, right (05/26/22 3:51 AM) Temperature Route Oral (05/26/22 12:13 PM) Oral (05/26/22 8:21 AM) Oral (05/26/22 3:51 AM) Dry Weight 98.4 kg (05/25/22 7:15 AM) Weight Obtained Via Patient/family state d (05/24/22 6:19 PM) Social History Social History Type Response Smoking Status Never smoker entered on: 02/16/15 Sex Female Care Team Personnel Name: Diana Martinez PA-C Address: [address] [place], [place] [id number]
--- OUTSIDE RECORDS SUMMARY | 2023-12-22 15:48 | XMS_ITS | Continuity of Care Document ---
Author Organization [facility] ter Address [address] [place] [address]- Care Team Providers Care Catheter Finisher And Inspector Name Role Phone Diana Martinez PA-C Primary Care Physician [place] [facility] [place]/18/[place] - 03/18/[address] [address] Discharge Disposition: A-D/C Home Attending Physician: Elida Gustafson MD Admitting Physician: Elida Gustafson MD Referring Physician: Elida Gustafson MD Allergies, Adverse Reactions, Alerts Substance Reaction [...] mL, 0 Refills, Maintenance, 11/20/20 15:40:00 EDT, [facility] #[id number], Partial fill upon patient request if the prescription is for a schedule II opioid drug., complete on day before... Start Date: 11/20/20 Status: Ordered Problem List Condition Effective Dates Status Health Status Inform ant Depression(Confirmed) Active Obesity (BMI 30-39.9)(Confirmed) Active PTSD - Post-traumatic stress disorder(Confirmed) Active Labral tear and piriformis inflammation right hip(Confirmed) Active Procedures Procedure Date Related Diagnosis Body Site Status Colonoscopy 03/18/21 Completed Vital Signs Most recent to oldest [Reference Range]: 1 2 3 Height 167.6 cm (03/18/21 2:18 PM) Oxygen Saturation [94-100 %] 100 % (03/18/21 3:59 PM) 100 % (03/18/21 3:54 PM) 100 % (03/18/21 2:18 PM) Pulse Rate [55-90 bpm] 62 bpm (03/18/21 2:18 PM) Blood Pressure [90-138/55-84 mm Hg] 108/66mm Hg (03/18/21 3:59 PM) 110/67mm Hg (03/18/21 3:54 PM) 119/85mm Hg (03/18/21 2:18 PM) Respiratory Rate [16-30 br/min] 14 br/min *L* (03/18/21 3:59 PM) 12 br/min *L* (03/18/21 3:54 PM) 18 br/min (03/18/21 2:18 PM) Temperature [96.8-100.4 DegF] 98.2 DegF (03/18/21 2:18 PM) Mode of Delivery (Oxygen) Room air (03/18/21 3:59 PM) Room air (03/18/21 3:54 PM) Room air (03/18/21 2:18 PM) Blood pressure sites Arm, left (03/18/21 3:59 PM) Arm, left (03/18/21 3:54 PM) Arm, left (03/18/21 2:18 PM) Temperature Route Temporal (03/18/21 2:18 PM) Dry Weight 77.5 kg (03/18/21 2:18 PM) Dry Weight Obtained Via Patient/family s tated (03/18/21 2:18 PM) Social History Social History Type Response Smoking Status Never smoker entered on: 02/16/15 Sex Female
--- OUTSIDE RECORDS SUMMARY | 2023-12-22 15:48 | XMS_ITS | Continuity of Care Document ---
Author Organization [facility] ter Address [address] [place] [address]- Care Team Providers Care Marketing Program Coordinator Name Role Phone Diana Martinez PA-C Primary Care Physician Encounter [facility] [place] Date(s): 07/08/23 - 07/08/[address] [address]- Discharge Disposition: A-D/C Walkout Attending Physician: Not on Staff, Attending MD Admitting Physician: Not on Staff, Admitting MD Referring Physician: Not on Staff, Referring [...] Refills, Soft Stop, 09/11/22 15:18:00 EST, Tablet, [facility]/pharmacy #[id number], Partial fill upon patient request if... [...] and piriformis inflammation right hip Confirmed Active Vital Signs Most recent to oldest [Reference Range]: 1 Height 168 cm (07/08/23 12:38 PM) Oxygen Saturation [94-100 %] 98 % (07/08/23 12:38 PM) Pulse Rate [55-90 bpm] 91 bpm *H* (07/08/23 12:38 PM) Blood Pressure [90-138/55-84 mm Hg] 153/ 90mm Hg *H* (07/08/23 12:38 PM) Respiratory Rate [16-30 br/min] 18 br/mi n (07/08/23 12:38 PM) Temperature [96.8-100.4 DegF] 99.1 DegF (07/08/23 12:38 PM) Mode of Delivery (Oxygen) Room air (07/08/23 12:38 PM) Blood pressure sites Arm, left (07/08/23 12:38 PM) Temperature Route Oral (07/08/23 12:38 PM) Dry Weight 103 kg (07/08/23 12:38 PM) Dry Weight Obtained Via Patient/family s tated (07/08/23 12:38 PM) Social History Social History Type Response Smoking Status Never smoker entered on: 02/16/15 Sex Patient Care team information Care Team Personnel Name: Mara Teague RN Position: S RN Member Role: Primary Care Nurse Name: Lynette Beard RN Position: S RN Member Role: Primary Care Nurse Name: Diana Martinez PA-C Position: Reference Physician Member Role: PCP Address: Address: [address] [place] [address] Name: Azalea Macedo RN Position: [facility] OB RN Member Role: Primary Care Nurse Care Team Related Persons Name: JUAN ASIF Address: home [address] [place] [address] [facility] [place] [address]
--- OUTSIDE RECORDS SUMMARY | 2023-12-22 15:48 | XMS_ITS | Continuity of Care Document ---
Author Organization [facility] ter Address [address] [place] [address]- Care Team Providers Care Handkerchief Folder Name Role Phone Diana Martinez PA-C Primary Care Physician Encounter [facility] [place] Date(s): 12/12/22 - 12/13/[address] [address]- Discharge Disposition: A-D/C Walkout Attending Physician: Not [...] Refills, Soft Stop, 09/11/22 15:18:00 EST, Tablet, [facility]/pharmacy #[id number], Partial fill upon patient request [...] 3 Oxygen Saturation [94-100 %] 100 % (12/12/22 9:41 PM) 99 % (12/12/22 7:50 PM) 100 % (12/12/22 5:42 PM) Pulse Rate [55-90 bpm] 71 bpm (12/12/22 9:41 PM) 72 bpm (12/12/22 7:50 PM) 71 bpm (12/12/22 5:42 PM) Blood Pressure [90-138/55-84 mm Hg] 141/75mm Hg *H* (12/12/22 9:41 PM) 130/73mm Hg (12/12/22 7:50 PM) 104/69mm Hg (12/12/22 5:42 PM) Respiratory Rate [16-30 br/min] 18 br/min (12/12/22 5:42 PM) Temperature [96.8-100.4 DegF] 98.0 DegF (12/12/22 9:41 PM) 97.8 DegF (12/12/22 7:50 PM) 98.4 DegF (12/12/22 5:42 PM) Mode of Delivery (Oxygen) Room air (12/12/22 9:41 PM) Room air (12/12/22 7:50 PM) Room air (12/12/22 5:42 PM) Blood pressure sites Arm, left (12/12/22 9:41 PM) Arm, left (12/12/22 7:50 PM) Arm, left (12/12/22 5:42 PM) Temperature Route Oral (12/12/22 9:41 PM) Oral (12/12/22 7:50 PM) Oral (12/12/22 5:42 PM) Social History Social History Type Response Smoking Status Never smoker entered on: 02/16/15 Sex Female EKG study * Event Display: EKG Authored Date: * Event Display: ECG 12-Lead Authored Date: Please click on pdf link to open report * Event Display: ECG 12-Lead Authored Date: Ventricular Rate: 71 BPM Atrial Rate: 71 BPM P-R Interval: 142 ms QRS Duration: 76 ms Q-T Interval: 378 ms QTC Calculation(Bazett): 410 ms P Austin: 66 degrees R Austin: 35 degrees T Austin: 41 degrees Poor data quality, interpretation may be adversely affected Normal sinus rhythm with sinus arrhythmia Normal ECG When compared with ECG of 17-JUL-2022 11:02, No significant change was found Confirmed by CAROLANN GALICIA MD ([id number]) on 12/13/2022 11:00:26 AM [place]: CAROLANN GALICIA MD Patient Care team information Care Team Personnel Name: Ho AVERY, Mara Kim Position: S RN Member Role: Primary Care Nurse Name: Lynette Beard RN Position: S RN Member Role: Primary Care Nurse Name: Diana Martinez PA-C Position: Reference Physician Member Role: PCP Address: Address: [address] [place] [address] Name: Azalea Macedo RN Position: S OB RN Member Role: Primary Care Nurse Care Team Related Persons Name: JUAN ASIF Address: [address] [place] [address]
--- OUTSIDE RECORDS SUMMARY | 2023-12-22 15:48 | XMS_ITS | Continuity of Care Document ---
Author Organization [facility] Address [address] [place] [address]- Care Team Providers Care Elevator Examiner Name Role Phone Diana Martinez PA-C Primary Care Physician Encounter [facility] [place] Date(s): 01/19/23 - 02/18/23 [facility] [address] [place] [address]- [place] Allergies, Adverse Reactions, Alerts Substance Reaction [...] Refills, Soft Stop, 09/11/22 15:18:00 EST, Tablet, [facility]/pharmacy #[id number], Partial fill upon patient request if... [...] Reference Physician Member Role: PCP Address: Address: [address] [place] [address] Name: Azalea Macedo RN Position: S OB RN Member Role: Primary Care Nurse Care Team Related Persons Name: JUAN ASIF Address: home [address] [place] [place] [address]
--- OUTSIDE RECORDS SUMMARY | 2023-12-22 15:48 | XMS_ITS | Continuity of Care Document ---
Author Organization [facility] Address [address] [facility], [address] Floor, [address] [place] [address]- Care Team Providers Care Job Setter Honing Name Role Phone Castillo TUNNELING MACHINE OPERATOR, Brian W Primary Care Physician Encounter [facility] [place] [id number] Date(s): 07/21/22 - 08/20/22 [facility] [address], [address] [place] [id number] Attending Physician: Jacquelyn Ryder Admitting Physician: Admtr, Jacquelyn Referring Physician: Admtr, Ar8 Allergies, Adverse Reactions, Alerts Substance Reaction Severity [...] Member Role: Primary Care Nurse Name: Castillo TUNNELING MACHINE OPERATOR, Brian Guerrero Position: Reference Physician Member Role: PCP Address: Address: [address] [place] [address], [address] [place] [address] Name: Azalea Macedo RN Position: [facility] OB RN Member Role: Primary Care Nurse Care Team Related Persons Name: JUAN ASIF Address: [address] [place] [address]
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
== END 2023-12-22 18:13 | disposition home or self-care (01) ==
LOC: HO.HOP 15:47
PROVIDERS: PCP Physician Assistant Medical; Visit Provider Clinical Nurse Specialist Psychiatric/Mental Health
DX: F43.12 Post-traumatic stress disorder, chronic (principal)
CPT/HCPCS: 99214

== ENCOUNTER → 2023-12-22 15:46 | Outpatient (BNVA) | payer OTHER, MEDICAID, SELFPAY | PROVIDERS: PCP Physician Assistant Medical; Visit Provider Clinical Nurse Specialist Psychiatric/Mental Health ==

== ENCOUNTER 2023-12-29 13:46 | Outpatient (AMB) | payer OTHER, MEDICAID, SELFPAY ==
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
== END 2023-12-29 13:49 | disposition home or self-care (01) ==
LOC: HO.HOP 13:46
PROVIDERS: PCP Physician Assistant Medical; Visit Provider Clinical Nurse Specialist Psychiatric/Mental Health
DX: F43.12 Post-traumatic stress disorder, chronic (principal); F33.1 Major depressive disorder, recurrent, moderate; F41.1 Generalized anxiety disorder
CPT/HCPCS: 99214

== ENCOUNTER → 2023-12-29 13:46 | Outpatient (BNVA) | payer OTHER, MEDICAID, SELFPAY | PROVIDERS: PCP Physician Assistant Medical; Visit Provider Clinical Nurse Specialist Psychiatric/Mental Health ==

== ENCOUNTER 2024-01-08 15:49 | Outpatient (AMB) | payer OTHER, MEDICAID, SELFPAY ==
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
== END 2024-01-08 15:49 | disposition home or self-care (01) ==
LOC: HO.HOP 15:49
PROVIDERS: PCP Physician Assistant Medical; Visit Provider Clinical Nurse Specialist Psychiatric/Mental Health
DX: F43.12 Post-traumatic stress disorder, chronic (principal)
CPT/HCPCS: 99214

== ENCOUNTER → 2024-01-08 15:49 | Outpatient (BNVA) | payer OTHER, MEDICAID, SELFPAY | PROVIDERS: PCP Physician Assistant Medical; Visit Provider Clinical Nurse Specialist Psychiatric/Mental Health | DX: F43.12 Post-traumatic stress disorder, chronic (principal) ==

== ENCOUNTER 2024-02-12 16:51 | Outpatient (AMB) | payer OTHER, MEDICAID, SELFPAY ==
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
== END 2024-02-12 16:52 | disposition home or self-care (01) ==
LOC: HO.HOP 16:51
PROVIDERS: PCP Physician Assistant Medical; Visit Provider Clinical Nurse Specialist Psychiatric/Mental Health
DX: F33.1 Major depressive disorder, recurrent, moderate (principal); F41.1 Generalized anxiety disorder; F43.12 Post-traumatic stress disorder, chronic; G31.84 Mild cognitive impairment of uncertain or unknown etiology
CPT/HCPCS: 99215

== ENCOUNTER → 2024-02-12 16:51 | Outpatient (BNVA) | payer OTHER, MEDICAID, SELFPAY | PROVIDERS: PCP Physician Assistant Medical; Visit Provider Clinical Nurse Specialist Psychiatric/Mental Health ==

== ENCOUNTER 2024-03-08 15:08 | Outpatient (AMB) | payer OTHER, MEDICAID, SELFPAY ==
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
== END 2024-03-08 15:17 | disposition home or self-care (01) ==
LOC: HO.HOP 15:09
PROVIDERS: PCP Physician Assistant Medical; Visit Provider Clinical Nurse Specialist Psychiatric/Mental Health
DX: F33.1 Major depressive disorder, recurrent, moderate (principal)
CPT/HCPCS: 99213

== ENCOUNTER → 2024-03-08 15:08 | Outpatient (BNVA) | payer OTHER, MEDICAID, SELFPAY | PROVIDERS: PCP Physician Assistant Medical; Visit Provider Clinical Nurse Specialist Psychiatric/Mental Health ==

== ENCOUNTER 2024-03-17 09:01 | Outpatient (AMB) | payer OTHER, MEDICAID, SELFPAY ==
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
== END 2024-03-17 10:47 | disposition home or self-care (01) ==
LOC: HO.HOP 09:01
PROVIDERS: PCP Physician Assistant Medical; Visit Provider Clinical Nurse Specialist Psychiatric/Mental Health
DX: F33.1 Major depressive disorder, recurrent, moderate (principal); F43.12 Post-traumatic stress disorder, chronic; F41.1 Generalized anxiety disorder
CPT/HCPCS: 90833; 99214

== ENCOUNTER → 2024-03-17 09:01 | Outpatient (BNVA) | payer OTHER, MEDICAID, SELFPAY | PROVIDERS: PCP Physician Assistant Medical; Visit Provider Clinical Nurse Specialist Psychiatric/Mental Health ==

== ENCOUNTER 2024-04-15 16:04 | Outpatient (AMB) | payer OTHER, MEDICAID, SELFPAY ==
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
== END 2024-04-15 17:37 | disposition home or self-care (01) ==
LOC: HO.HOP 16:04
PROVIDERS: PCP Physician Assistant Medical; Visit Provider Clinical Nurse Specialist Psychiatric/Mental Health
DX: F33.1 Major depressive disorder, recurrent, moderate (principal); F43.12 Post-traumatic stress disorder, chronic; F41.1 Generalized anxiety disorder
CPT/HCPCS: 99214

== ENCOUNTER → 2024-04-15 16:04 | Outpatient (BNVA) | payer OTHER, MEDICAID, SELFPAY | PROVIDERS: PCP Physician Assistant Medical; Visit Provider Clinical Nurse Specialist Psychiatric/Mental Health ==

== ENCOUNTER 2024-04-18 19:03 | Emergency (ER) | payer MEDICARE, MEDICAID, SELFPAY ==
--- NOTE | ~2024-04-18 | CT_ITS ---
EXAMINATION: CT HEAD WITHOUT CONTRAST CLINICAL INFORMATION: Headache; sensation of eye bulging. COMPARISON: MRI brain dated 03/22/2021. TECHNIQUE: Contiguous axial imaging was performed from the skull base to vertex without intravenous administration of contrast. Multiplanar reformatted images are submitted. This CT examination was performed using dose optimization techniques as appropriate, variously including the following: *Automated exposure control *Adjustment of mA and/or kV according to patient size (this includes techniques or standardized protocols for targeted exams where dose is matched to indication/reason for exam; i.e. extremities or head) *Use of iterative reconstruction technique DLP: 1169 mGy-cm (head and cervical spine) FINDINGS: There is no acute intracranial hemorrhage or evidence of territorial infarction. No abnormal mass effect or midline shift is seen. [place] to white matter differentiation is well preserved. There is no abnormal attenuation within the brain parenchyma. The ventricles are again enlarged, without associated sulcal widening. This appearance is stable from the MRI examination 03/21/2021. The third and fourth ventricles appear patent. No extra-axial fluid collections are identified. The calvarium and scalp soft tissues are normal. The middle ear cavity and mastoid air cells are clear. The visualized paranasal sinuses are clear. CT/CT cervical spine wo IV con IMPRESSION: 1. No acute intracranial pathology. 2. There is stable disproportionate prominence of the lateral ventricles, raising the possibility of normal pressure hydrocephalus. Again, clinical correlation is recommended. EXAMINATION: CT CERVICAL SPINE WITHOUT CONTRAST CLINICAL INFORMATION: Pain; history of recent surgery. COMPARISON: CT cervical spine dated 07/11/2021. TECHNIQUE: Contiguous axial imaging was performed through the cervical spine without intravenous administration of contrast. Multiplanar reformatted images are submitted. This CT examination was performed using dose optimization techniques as appropriate, variously including the following: *Automated exposure control *Adjustment of mA and/or kV according to patient size (this includes techniques or standardized protocols for targeted exams where dose is matched to indication/reason for exam; i.e. extremities or head) *Use of iterative reconstruction technique DLP: As above FINDINGS: Vertebral body heights and alignment are normal. There is well-maintained alignment status-post C3-C6 anterior fusions and discectomies. No hardware failure or loosening is seen. The remaining disc spaces are well-maintained. No acute fracture or spondylolisthesis is seen. The posterior elements are intact. There is multi-level cervical facet arthropathy. There is no prevertebral soft tissue swelling or gas. The dens is intact. The bilateral lung apices are clear. IMPRESSION: There is well-maintained alignment status-post C3-C6 anterior fusions and discectomies. No acute fracture or spondylolisthesis is seen. Fleischner guidelines were followed.
[2024-04-18 19:16] VITALS: BP 173/103; PULSE 75; RESP 18; TEMP 36.6; O2SAT 99; BMI 34.8
--- NOTE | 2024-04-18 19:18 | ED_ITS ---
HPI - General Adult General Chief complaint: Headache Stated complaint: headache Time Seen by Provider: 04/19/24 03:08 History of Present Illness ED Provider: Dejuan IRVING narrative: The patient is a 59-year-old woman presents for evaluation of pain in her head. She says that it does not really feel like a headache so much as it feels like a skewer through her head. She says that she has been having problems with this pain for about 2-4 weeks. She says that the pains come and go. Tonight the pain was particularly severe and she felt like her right eye was popping out of her head and she had her daughter drive her to the emergency room. Related Data Home Medications ?Medication ?Instructions ?Recorded ?Confirmed pantoprazole 40 mg tablet,delayed 40 mg PO DAILY 11/05/23 04/15/24 release rosuvastatin 10 mg tablet 10 mg PO BEDTIME 11/05/23 04/15/24 oxycodone 5 mg tablet mg PO 02/12/24 04/15/24 valsartan 40 mg tablet 40 mg PO DAILY 02/12/24 04/15/24 Previous Rx's ?Medication ?Instructions ?Recorded duloxetine 30 mg capsule,delayed 30 mg PO DAILY 30 days #30 caps 02/12/24 release (Cymbalta) lamotrigine 150 mg tablet 150 mg PO BID #60 tabs 02/12/24 aripiprazole 5 mg tablet 5 mg PO DAILY #30 tabs 04/15/24 clonazepam 0.5 mg tablet 0.25 - 0.5 mg (0.5 - 1 x 0.5 mg) 04/15/24 PO .COMPLEX PRN anxiety 30 days #60 tabs duloxetine 60 mg capsule,delayed 60 mg PO DAILY 30 days #30 caps 04/15/24 release risperidone 0.25 mg tablet 0.25 mg PO DAILY PRN over thinking 04/15/24 #30 tabs cyclobenzaprine 10 mg tablet 10 mg PO TID PRN muscle spasm #14 04/19/24 tabs Allergies Allergy/AdvReac Type Severity Reaction Status Date / Time amoxicillin Allergy Unknown Rash Verified 04/18/24 19:22 morphine Allergy Unknown Rash Verified 04/18/24 19:22 doxycycline [Vibramycin] AdvReac Unknown GI bleeding Verified 04/18/24 19:22 Vibramycin Allergy Unknown Gastrointestinal Uncoded 04/18/24 19:22 Upset Review of Systems 2 Review of Systems: Yes all other systems are reviewed and are negative [facility] Past Medical History Medical History (Updated 04/19/24 @ 06:24 by Vernon Zaidi MD) Major depression, recurrent Hydrocephalus Low back pain Surgical History (Updated 11/05/23 @ 15:55 by Tiffani Stanton APRN) History of right hip replacement Social History Social History Alcohol intake: never Smoked in Last 30 Days: Yes Use of substances other than those prescribed or required for medical reasons: No Advance Directives: No Advance Directives Information Provided: Yes Do you have a plan to hurt others: No Plan Patient : No Physical Exam ED Vital Signs: Vital Signs - 24 hr 04/18/24 19:16 04/18/24 23:35 04/19/24 00:54 Temperature 97.9 F 97.7 F 97.7 F Pulse Rate 75 76 77 Respiratory Rate 18 16 17 Blood Pressure 173/103 H 169/82 H 144/78 H Pulse Oximetry 99 98 98 Oxygen Delivery Method Room Air Room Air Room Air 04/19/24 06:00 04/19/24 06:34 Temperature 98.1 F 98.1 F Pulse Rate 90 90 Respiratory Rate 16 16 Blood Pressure 137/88 137/88 Pulse Oximetry 96 96 Oxygen Delivery Method Room Air Room Air BMI result Body Mass Index 34.8 Const Other: The patient was sleeping on the hospital stretcher. She was wearing a soft cervical collar. She woke easily with verbal stimuli. She does not seem in acute distress or toxic. HENMT Other: Face is symmetrical. Mucous membranes moist. Tongue is midline. Eyes Other: Pupils are round equal, conjunctivae clear, extraocular movements are intact, visual hudsno are intact to confrontation. Neck Neck: Yes no lymphadenopathy and Yes no JVD Resp Effort & Inspection: normal respiratory effort Auscultation: clear to auscultation bilaterally Cardio Rate: regular rate Rhythm: regular rhythm Heart sounds: S1 normal heart sound present and S2 normal heart sound present Skin Other: Skin is dry and unremarkable Neuro Other: The patient was sleeping. She awoke easily with verbal stimuli to a normal mental status and a normal level of consciousness. She seems appropriately oriented. Pupils are round, equal and reactive to light. Extraocular movements are intact. Visual hudson are intact to confrontation. Face is symmetrical. Speech is clear. Strength is intact. There is no pronator drift. Finger-nose is normal. Gait is slow but steady. Extrem Other: No calf swelling or tenderness. No asymmetry. No pedal edema. Course Course Course Narrative: RME performed by Elen North PA-C. Patient is a 59 year old assigned female at presenting to the emergency department with a headache. Patient had a neck fusion in 01/2024 and states that her neck feels wobbly right now. Detailed physical exam and review of systems are deferred to the blind cleaner. Labs, imaging, and swabs ordered. Patient placed back in the waiting room pending room availability and results. Medications Administered Discontinued Medications Generic Name Dose Route Start Last Admin Trade Name Freq PRN Reason Stop Dose Admin Cyclobenzaprine HCl 10 mg 04/19/24 03:40 04/19/24 04:08 Cyclobenzaprine Hcl 10 Mg Tablet PO 04/19/24 03:41 10 mg ONCE ONE Administration Ketorolac Tromethamine 30 mg 04/19/24 03:25 04/19/24 04:08 Ketorolac Tromethamine 30 Mg/Ml Vial IM 04/19/24 03:26 30 mg ONCE ONE Administration Prochlorperazine Edisylate 10 mg 04/19/24 03:25 04/19/24 04:09 Prochlorperazine Edisylate 10 Mg/2 Ml Vial IM 04/19/24 03:26 10 mg ONCE ONE Administration Medical Decision Making Medical Decision Making MDM Narrative: The patient is a 59-year-old woman who presented complaining of atraumatic head pain and neck pain. She had a CT scan of the head and the neck shows no definite acute findings. She was given an injection of IM ketorolac, IM prochlorperazine, and a dose of oral cyclobenzaprine. She was observed and felt considerably better. I felt she was safe for discharged to follow up with her regular providers. Lab Data 04/18/24 19:51 04/18/24 19:51 Labs: Lab Results 04/18/24 Range/Units 19:51 WBC 11.1 H (4.8-10.8) X10*3/uL RBC 4.66 (4.20-5.50) X10*6/uL Hgb 13.2 (12.0-16.0) g/dl Hct 38.9 (37.0-47.0) % MCV 83.5 (80.0-98.0) fL MCH 28.3 (27.0-33.0) pg MCHC 33.9 (31.0-35.0) g/dl RDW 13.2 (11.0-16.0) % Plt Count 221 (160-400) X10*3/uL MPV 8.5 L (9.4-12.3) fL Immature Gran % (Auto) 0.3 (0.0-0.4) % Neut % (Auto) 55.0 (45-73) % Lymph % (Auto) 36.3 (20-40) % Coffey % (Auto) 7.5 (2-11) % Eos % (Auto) 0.5 (0-4) % Baso % (Auto) 0.4 (0-2) % Lymph # (Auto) 4.0 (1.2-4.9) X10*3/uL Coffey # (Auto) 0.8 (0.1-1.2) X10*3/uL Eos # (Auto) 0.1 (0.0-0.4) X10*3/uL Baso # (Auto) 0.1 (0.0-0.2) X10*3/uL Abs Immat Gran (auto) 0.03 (0.00-0.03) X10*3/uL Absolute Neuts (auto) 6.1 (2.0-8.3) x10*3/uL Absolute Nucleated RBC 0.000 (0.0-0.012) X10*3/uL Nucleated RBC % (auto) 0.0 (0.0-0.2) /100WBC ESR 11 (0-20) MM/HR Sodium 143 (135-145) mmol/L Potassium 3.8 (3.3-5.1) mmol/L Chloride 107 (96-108) mmol/L Carbon Dioxide 24 (22-29) mmol/L Anion Gap 16 (12-20) BUN 13 (9-16) mg/dL Creatinine 0.85 (0.5-1.4) mg/dL Estim Creat Clear Calc 84.1 Estimated GFR > 60 Random Glucose 94 (60-115) mg/dL Calcium 9.8 (8.4-10.2) mg/dL Total Bilirubin 0.5 (0.0-1.0) mg/dL AST 13 (5-31) U/L ALT 12 (0-31) U/L Alkaline Phosphatase 104 (39-117) U/L C-Reactive Protein 0.36 (< or = 0.50) mg/dL Total Protein 6.9 (6.5-8.0) g/dL Albumin 4.4 (3.5-5.0) g/dL Discharge Plan Discharge Clinical Impression: Headache, Neck pain Patient Disposition: Home, Self-Care Additional Instructions: Your testing in the emergency room today is reassuring. I have sent a prescription for cyclobenzaprine that you may use as needed for pain. Please follow up soon with your regular doctor. Return to the emergency room if worse. Prescriptions: New cyclobenzaprine 10 mg tablet 10 mg PO TID PRN (Reason: muscle spasm) Qty: 14 0RF No Action pantoprazole 40 mg tablet,delayed release (DR/EC) 40 mg PO DAILY rosuvastatin 10 mg tablet 10 mg PO BEDTIME aripiprazole 5 mg tablet 5 mg PO DAILY Qty: 30 2RF clonazepam 0.5 mg tablet 0.25 - 0.5 mg PO .COMPLEX PRN (Reason: anxiety) 30 Days Qty: 60 2RF Rx Instructions: 0.25 - 0.5 mg orally take 1/2 tablet twice a day and may take an additional tablet PRN severe anxiety PRN; duloxetine 60 mg capsule,delayed release(DR/EC) 60 mg PO DAILY 30 Days Qty: 30 2RF risperidone 0.25 mg tablet 0.25 mg PO DAILY PRN (Reason: over thinking) Qty: 30 0RF oxycodone 5 mg tablet PO valsartan 40 mg tablet 40 mg PO DAILY lamotrigine 150 mg tablet 150 mg PO BID Qty: 60 3RF duloxetine [Cymbalta] 30 mg capsule,delayed release(DR/EC) 30 mg PO DAILY 30 Days Qty: 30 2RF Rx Instructions: in addition to 60 mg daily Referrals: Katerin Saldana MD [Primary Care Provider] - (headache, neck pain) Interventions: ED Discharge Assessment Last Done: 04/19/24 06:34 Discharge Date/Time: 04/19/24 06:35 Print Language: Setswana
[2024-04-18 19:55] LABS: MANUAL DIFF FLAG NO
[2024-04-18 19:57] LABS: Basophils Absolute Auto 0.1 X10*3/uL (0.0-0.2); Basophils Percent Auto 0.4 % (0-2); Eosinophils Absolute Auto 0.1 X10*3/uL (0.0-0.4); Eosinophils Percent Auto 0.5 % (0-4); Hematocrit 38.9 % (37.0-47.0); Hemoglobin 13.2 g/dl (12.0-16.0); Imm Gran Abs Auto 0.03 X10*3/uL (0.00-0.03); Imm Gran Pct Auto 0.3 % (0.0-0.4); Lymphocytes Percent Auto 36.3 % (20-40); Mean Corpuscular HGB Conc 33.9 g/dl (31.0-35.0); Mean Corpuscular Hemoglobin 28.3 pg (27.0-33.0); Mean Corpuscular Volume 83.5 fL (80.0-98.0); Mean Platelet Volume 8.5 fL (9.4-12.3); Monocytes Absolute Auto 0.8 X10*3/uL (0.1-1.2); Monocytes Percent Auto 7.5 % (2-11); Neutrophils Absolute Auto 6.1 x10*3/uL (2.0-8.3); Platelet Count 221 X10*3/uL (160-400); Red Blood Count 4.66 X10*6/uL (4.20-5.50); Red Cell Distribution Width 13.2 % (11.0-16.0); White Blood Count 11.1 X10*3/uL (4.8-10.8)
[2024-04-18 20:12] LABS: Alanine Aminotransferase 12 U/L (0-31); Albumin Level 4.4 g/dL (3.5-5.0); Alkaline Phosphatase 104 U/L (39-117); Anion Gap 16 (12-20); Aspartate Amino Transferase 13 U/L (5-31); Bilirubin Total 0.5 mg/dL (0.0-1.0); Blood Urea Nitrogen 13 mg/dL (9-16); C Reactive Protein 0.36 mg/dL (< or = 0.50); Calcium 9.8 mg/dL (8.4-10.2); Carbon Dioxide 24 mmol/L (22-29); Chloride 107 mmol/L (96-108); Creatinine Clr Calc Pharmacy 84.1; Estimated Glomerular Filt Rate > 60; Glucose Random 94 mg/dL (60-115); Potassium 3.8 mmol/L (3.3-5.1); Sodium 143 mmol/L (135-145); Total Protein 6.9 g/dL (6.5-8.0)
[2024-04-18 20:39] LABS: Erythrocyte Sedimentation Rate 11 MM/HR (0-20)
[2024-04-18 23:35] VITALS: BP 169/82; PULSE 76; RESP 16; TEMP 36.5; O2SAT 98
[2024-04-19 00:54] VITALS: BP 144/78; PULSE 77; RESP 17; TEMP 36.5; O2SAT 98
[2024-04-19] MEDS: Ketorolac Tromethamine 30 MG/ML VIAL IM (04:08)
[2024-04-19] MEDS: Cyclobenzaprine HCl 10 MG TABLET PO (04:08)
[2024-04-19] MEDS: Prochlorperazine Edisylate 10 MG/2 ML VIAL IM (04:09)
[2024-04-19 06:00] VITALS: BP 137/88; PULSE 90; RESP 16; TEMP 36.7; O2SAT 96
[2024-04-19 06:34] VITALS: BP 137/88; PULSE 90; RESP 16; TEMP 36.7; O2SAT 96
== END 2024-04-19 06:35 | disposition home or self-care (01) ==
PROVIDERS: Physician Assistant Medical; Emergency Provider Emergency Medicine; PCP Internal Medicine
DX: R51.9 Headache, unspecified (principal); M54.2 Cervicalgia; Z79.899 Other long term (current) drug therapy
CPT/HCPCS: 36415; 70450; 72125; 80053; 85025; 85652; 86140; 96372; 99284; J0737; J1885

== ENCOUNTER 2024-05-20 13:05 | Outpatient (AMB) | payer MEDICARE, MEDICAID, SELFPAY ==
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
== END 2024-05-20 13:57 | disposition home or self-care (01) ==
LOC: HO.HOP 13:05
PROVIDERS: PCP Internal Medicine; Visit Provider Clinical Nurse Specialist Psychiatric/Mental Health
DX: F43.12 Post-traumatic stress disorder, chronic (principal); F41.1 Generalized anxiety disorder
CPT/HCPCS: 90833; 99214

== ENCOUNTER → 2024-05-20 13:05 | Outpatient (BNVA) | payer MEDICARE, MEDICAID, SELFPAY | PROVIDERS: PCP Internal Medicine; Visit Provider Clinical Nurse Specialist Psychiatric/Mental Health | DX: F32.A Depression, unspecified (principal); F43.12 Post-traumatic stress disorder, chronic; F41.1 Generalized anxiety disorder | CPT/HCPCS: 99212 ==

== ENCOUNTER 2024-06-16 11:04 | Outpatient (AMB) | payer MEDICARE, MEDICAID, SELFPAY ==
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
== END 2024-06-16 15:42 | disposition home or self-care (01) ==
LOC: HO.HOP 11:04
PROVIDERS: PCP Internal Medicine; Visit Provider Clinical Nurse Specialist Psychiatric/Mental Health
DX: F33.1 Major depressive disorder, recurrent, moderate (principal); F41.1 Generalized anxiety disorder; F43.12 Post-traumatic stress disorder, chronic
CPT/HCPCS: 90833; 99214

== ENCOUNTER → 2024-06-16 11:04 | Outpatient (BNVA) | payer MEDICARE, MEDICAID, SELFPAY | PROVIDERS: PCP Internal Medicine; Visit Provider Clinical Nurse Specialist Psychiatric/Mental Health | DX: F33.1 Major depressive disorder, recurrent, moderate (principal); F41.1 Generalized anxiety disorder; F43.12 Post-traumatic stress disorder, chronic; Z71.89 Other specified counseling | CPT/HCPCS: 99212 ==

== ENCOUNTER 2024-07-28 13:05 | Outpatient (AMB) | payer MEDICARE, MEDICAID, SELFPAY ==
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
== END 2024-07-28 14:50 | disposition home or self-care (01) ==
LOC: HO.HOP 13:05
PROVIDERS: PCP Internal Medicine; Visit Provider Clinical Nurse Specialist Psychiatric/Mental Health
DX: F33.1 Major depressive disorder, recurrent, moderate (principal); F41.1 Generalized anxiety disorder; F43.12 Post-traumatic stress disorder, chronic
CPT/HCPCS: 99214

== ENCOUNTER → 2024-07-28 13:05 | Outpatient (BNVA) | payer MEDICARE, MEDICAID, SELFPAY | PROVIDERS: PCP Internal Medicine; Visit Provider Clinical Nurse Specialist Psychiatric/Mental Health | DX: F33.1 Major depressive disorder, recurrent, moderate (principal); F41.1 Generalized anxiety disorder; F43.12 Post-traumatic stress disorder, chronic | CPT/HCPCS: 99212 ==

== ENCOUNTER 2024-08-29 11:03 | Outpatient (AMB) | payer MEDICARE, MEDICAID, SELFPAY ==
--- OUTSIDE RECORDS SUMMARY | 2024-08-29 11:05 | XMS_ITS | Data Portability ---
Author Organization [facility], Medical [facility] ([place]) Address [address] Assessment Encounter Date Assessment Date Assessment LastModified by Organization Details LastModified Time 07/04/2021 07/04/2021 ? According to the practice guidelines for PTSD, stellate ganglion blocks are indicated for the treatment of PTSD. The patient will benefit from a stellate ganglion block under fluoroscopic guidance. The purpose of the sympathetic nerve block is to block the sympathetic chain to reduce effects of PTSD. The patient has not had full resolution of symptoms from other therapeutic treatments. - pursue right stellate ganglion block today [email or web address] Not available 07/03/2021 15:34:51 Plan of Treatment Reminders Order Date Submit Date Provider Last Modified By Organization Details Last Modified Time Details Appointments None record ed. Lab None record ed. Referral None record ed. Procedures None record ed. Surgeries None record ed. Imaging None record ed. Medication Orders None record ed. Patient TargetsNo targets recorded. Patient InstructionsNo instructions recorded. Reason for Referral None Reported. Procedures Surgical History Date Name Laterality Status Provider Name and Address Organization Details Recorded Time Stellate Ganglion Block completed Gerry Rodriguez MD [address] [place] [address], , Formerly [facility] 07/03/2021 15:34:40 total replacement of hip completed Gerry Rodriguez MD [address] [place] [address], , [facility] 07/04/2021 12:51:02 arthroscopy of shoulder completed Gerry Rodriguez MD [address] [place] [address], , [facility]ly [facility] 07/04/2021 12:51:46 Imaging Results None recorded. Procedure Notes None recorded. Medical Equipment None Reported. Allergies Allergen ID Allergen Name Allergen Category Reaction Reaction Severity Criticality Documentation Date Start Date Code Code System Note Provider Name and Address Organization Details Recorded Time 61346 morphine medicatio n Not available Not available Not available 07/03/2021 7052 RxNorm Gerry Rodriguez MD [address], [address], [facility]ly [facility] 15:35:39 44718 amoxicill in medicatio n Not available Not available Not available 07/03/2021 723 RxNorm Gerry Rodriguez MD [address], [address], [facility]ly [facility] 15:35:43 64790 Vibramyci n medicatio n Not available Not available Not available 07/03/202189182 5 RxNorm Gerry Rodriguez MD [address], 6, [facility]ly [facility] 15:35:54 Medications Name Sig Start Date Stop Date Status Note LastModified by Organization Details LastModified Time gabapentin 600 mg tablet Take 1 tablet 3 times a day by oral route. active Not Available Not Available No t Available sertraline 100 mg tablet Take 1 tablet every day by oral route. active Not Available Not Available No t Available hydrochlorothiaz jennifer 25 mg tablet Take 1 tablet every day by oral route. active Not Available Not Available No t Available zolpidem 10 mg tablet Take 1 tablet every day by oral route. active Not Available Not Available No t Available memantine 10 mg tablet Take 1 tablet twice a day by oral route. active Not Available Not Available No t Available tizanidine active Not Available Not Av ailable Not Available naltrexone 25 mg active Not Available Not Av ailable Not Available aripiprazole 2.5 mg active Not Available Not Available Not Available Vitals None Recorded Social History None recorded. Functional Status None recorded. Mental Status None recorded. Family History Nothing Reported. Medical History Condition Response Hypertension Y Gynecological HistoryNo gynecological history recorded. Obstetrics History GPAL:G 0 P 0 0 0 0 Past Encounters Encounter ID Performer Location Encounter Start Date Encounter Closed Date Diagnosis/Indication Diagnosis SNOMED-CT Code Diagnosis ICD10 Code [id number] Mary Campos MD [facility] [address] [place] [address] S,[facility] [place] [address] 07/04/2021 12:33:39 07/04/2021 13:29:01 Posttraumatic stress disorder 74498236 F43.10 Chronic post-traumatic stress disorder 392121227 F43.12 Health Concerns Section Related Observation LastModified by Organization Detai ls LastModified Time None Recorded Concern Status LastModified by Organization Details LastModified Time None Recorded Advance Directives Directive None Recorded Payers Encounter Date Sequence Insurance Name Policy Number Policy Carty Covered Member ID Carty Member ID Guarantor Name 07/04/2021 1 *SELF PAY* Nida Bella Notes Date Note Type Note Provider Name and Address Organization Details Recorded Time 07/04/2021 text/html Right Stellate Ganglion Block 07/04/2021 Initial Consultation: 07/04/2021What is your chief complaint today? - PTSD / ANXIETY Onset: Patient presents from the [facility] for PTSD. Patient has never been treated for PTSD with stellate ganglion blocks before. Patient is currently seeing a mental health professional. Symptoms have been occurring for most of her life. Symptoms: body memories, flashbacks, fight or flight takes over my body in a millisecond...I start breathing funny and I can't think right , feelings of fear, increased anxiety, concentration and memory problems, difficulty sleeping Treatment: Patient is currently seeing a therapist once a week. Therapies Tried: acupuncture, TMS, talk therapy Medications Tried: sertraline, memantine, zolpidem Mary Campos MD [address] [place] [address], [address], [place], [address], Formerly [facility] 07/04/2021 13:09:31 OBGyn Episode No OBEpisode recorded.
--- OUTSIDE RECORDS SUMMARY | 2024-08-29 11:05 | XMS_ITS | Patient Health Record ---
Author [facility] Address [address] [place] [address] Care Team Providers Care Disability Rater Name Role Phone Floyd Romero Primary Care Provider Aleisha Holguin Unavailable [phone] Allergies Allergen (clinical drug ingredient) Drug/Non Drug Allergy documented on EMR Reaction Allergy Type Onset Date Status Vibramycin Unknown Drug Allergy Active Latex Latex Unknown Allergy Active morphine Morphine Unknown Drug Allergy Active Reason For Referral No Information Medications Medication SIG (Take, Route, Frequency, Duration) Notes Start Date End Date Status DULoxetine HCl 60 MG Oral for 30 Days Active lamoTRIgine 150 MG Oral for 30 Days Active Valsartan 40 MG Oral for 90 Days Active Baby Aspirin Active Rosuvastatin Calcium 10 MG Oral for 90 Days Active Pantoprazole Sodium Active risperiDONE 0.25 MG 1 tablet Orally Once a day for 30 days Active Social History Tobacco Use: Social History Observation Description Date Details (start date - stop date) Former Smoker NA - NA Tobacco Use/Smoking Question Answer Notes Are you a: former smoker Additional Findings: Tobacco Non-User Ex-cigaret te smoker Alcohol Screen Question Answer Notes Did you have a drink containing alcohol in the p ast year? No Points 0 Interpretation Negative Tobacco use other than smoking: Question Answer Notes Are you an other tobacco user? Yes Problems Problem Type SNOMED Code ICD Code Onset Dates Problem Status W/U Status Risk Notes Problem Plantar fibromatosis (63029610) Plantar fibromatosis (M72.2) Active confirmed Problem Plantar fascial fibromatosis (54954344) Plantar fasciitis, bilateral (M72.2) Active confirmed Vital Signs Blood pressure diastolic 80 mm Hg 07/13/2024 Height 5 ft 6 in in 07/13/2024 Blood pressure systolic 120 mm Hg 07/13/2024 Weight 214 lbs 07/13/2024 BMI 34.54 kg/m2 07/13/2024 Encounters Encounter Location Date [facility] [address] 07/13/2024 Aleisha Mahan Pain in right foot M79.671 ; Plantar fibromatosis M72.2 and 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 [address] 06/27/2024 [facility] [address] 07/13/2024 Aleishawillam Mahan [facility] [address] 07/13/2024 Aleisha Kalli Assessments Encounter Date Diagnosis (ICD Code) Assessment Notes Treatment Notes Treatment Clinical Notes Section Notes 07/13/2024 Pain in right foot (ICD-10 - M79.671) 07/13/2024 Plantar fibromatosis (ICD-10 - M72.2) 07/13/2024 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 (ICD-10 - D21.21) 07/13/2024 Other Patient Educated with: HEEL CORD STRETCHES.pdf (HEEL CORD STRETCHES.pdf) Patient Educated with: RICE THERAPY.pdf (RICE THERAPY.pdf) Plan Of Treatment Next Appt Details Provider Name:Aleisha Bear Kadeem ced, 09/21/2024 10:30:00 AM, [address] [place] [address], [phone], Insurance Providers Payer Name Payer Address Payer Phone Subscriber Number Group Number Insured Name Patient Relationship to Insured Coverage Start Date Coverage End Date [employer] Medicare [id number] [address] [address] [place] [address] [id number] LeidyNina rose Self - patient is the insured Medical (General) History Medical History History ICD Code Arthritis Back,Hip,and Knee pain Depression Seizures High Blood Pressure Numbness Chicken pox Joint implants/screws Surgical History Surgery Date(Month/Year) hip replacement back fusions endoscopy 07/12/24 colonoscopy 07/08/24
--- OUTSIDE RECORDS SUMMARY | 2024-08-29 11:05 | XMS_ITS | Data Portability ---
Author Organization [facility] [address] Address [address] [place] [address] Care Team Providers Care Technical Service Rep Name Role Phone EDI LEONARD Primary Care Provider [phone] Assessment No assessment recorded. Plan of Treatment Reminders Order Date Submit Date Provider Last Modified By Organization Details Last Modified Time Details Appointments None recorded. Lab None recorded. Referral None recorded. Procedures None recorded. Surgeries None recorded. Imaging None recorded. Medication Orders ketorolac 30 mg/mL (1 mL) injection solution 2022 023 [email or web address] Not available 13:25:22 Patient TargetsNo targets recorded. Patient Instructions Encounter Date Encounter Id Patient Instructions Last Modified By Organization Details Last Modified Time 11/30/2022 [id number] hip pain: care instructions [email or web address] Not available 11/30/2022 13:17:22 Reason for Referral None Reported. Problems Name Problem SNOMED Code Status Onset Date Resolution Date Notes Provider Name and Address Organization Details Recorded Time Hypercholester olemia 54596903 Active 2022 TOBY TEJADA null, PA - [facility] 3 12:54:21 Cerebrovascula r accident 462660236 Active 2022 TOBY TEJADA null, PA - [facility] 3 12:54:37 Traumatic brain injury 506085010 Active 2022 TOBY TEJADA null, PA - [facility] 3 12:54:50 Seizure disorder 516348270 Active 2022 TOBY TEJADA null, PA - [facility] 3 12:55:09 Vertigo 456562506 Active 2022 TOBY more, PA - [facility] 3 12:55:42 Problem Notes None recorded. Procedures Surgical History Date Name Laterality Status Provider Name and Address Organization Details Recorded Time procedure on back completed TOBY TEJADA PA - [facility] 11/30/2022 12:56:32 procedure on neck completed TOBY TEJADA PA - [facility] 11/30/2022 12:56:38 procedure on shoulder completed TOBY TEJADA PA - [facility] 11/30/2022 12:56:47 total replacement of hip completed TOBY TEJADA PA - [facility] 11/30/2022 12:57:08 Imaging Results None recorded. Procedure Notes None recorded. Medical Equipment None Reported. Allergies Allergen ID Allergen Name Allergen Category Reaction Reaction Severity Criticality Documentation Date Start Date Code Code System Note Provider Name and Address Organization Details Recorded Time 289328 amoxicill in medicatio n rash Not available Not available 11/30/2022 723 RxNorm TOBY more, PA - [facility] 3 12:50:18 301890 morphine medicatio n rash Not available Not available 11/30/2022 7052 RxNorm TOBY TEJADA null, PA - [facility] 3 12:50:30 899233 Vibramyci n medicatio n gi bleed Not available Not available 11/30/2022 27755 5 RxNorm TOBY TEJADA null, PA - [facility] 3 12:50:42 Medications Name Sig Start Date Stop Date Status Note LastModified by Organization Details LastModified Time naltrexon e 50 mg tablet TAKE 1/2 TAB DAILY AT BEDTIME active Not Available Not Available No t Available ondansetr on HCl 4 mg tablet PLEASE SEE ATTACHED FOR DETAILED DIRECTIO NS 11/30 completed Not Available Not Available Not Available clonazepa m 0.5 mg tablet TAKE 1-2 TABLETS ONCE A DAY IF NEEDED FOR ANXIETY active Not Available Not Available No t Available sertralin e 100 mg tablet TAKE 2 TABLETS BY MOUTH EVERY DAY active Not Available Not Available No t Available valsartan 80 mg tablet TAKE 1 TABLET BY MOUTH DAILY. 11/30 completed Not Available Not Available Not Available meclizine 12.5 mg tablet TAKE 1 TABLET BY MOUTH THREE TIMES A DAY NEEDED NAUSEA/V OMITING FOR 40 DAYS 11/30 completed Not Available Not Available Not Available aspirin 81 mg tablet,de layed release active Not Available Not Available Not Available acetamino phen 500 mg tablet 11/30 completed Not Available Not Available Not Available ketorolac 30 mg/mL (1 mL) injection solution 1 cc IM x 1 now 2022 active nursing Not Available Not Available Not Avai lable lamotrigi ne 25 mg tablet TAKE 1 TAB IN THE AM AND 2 AT BEDTIME AND AFTER 2 WEEKS TAKE 2 TABLET BY MOUTH 2 TIMES A DAY active Not Available Not Available No t Available hydromorp clementina 2 mg tablet 11/30 completed Not Available Not Available Not Available methocarb carrie 750 mg tablet 11/30 completed Not Available Not Available Not Available meclizine 25 mg tablet TAKE 1 TABLET 3 TIMES DAILY NEEDED FOR VERTIGO active Not Available Not Available No t Available hydrocodo ne 7.5 mg-acetam inophen 325 mg tablet TAKE 1 TABLET EVERY 4-6 HOURS NEEDED FOR PAIN 11/30 completed Not Available Not Available Not Available Senna Laxative 8.6 mg tablet 11/30 completed Not Available Not Available Not Available levetirac etam 750 mg tablet TAKE 1 TABLET BY MOUTH EVERY 12 HOURS active Not Available Not Available No t Available zolpidem 10 mg tablet TAKE 1/2 TO 1 TABLET AT BEDTIME NEEDED FOR SLEEP active Not Available Not Available No t Available valsartan 40 mg tablet TAKE 1 TABLET BY MOUTH EVERY DAY active Not Available Not Available No t Available aripipraz ole 5 mg tablet TAKE 1/2 TABLET BY MOUTH DAILY WITH FOOD active Not Available Not Available No t Available rosuvasta tin 10 mg tablet TAKE 1 TABLET BY MOUTH EVERYDAY AT BEDTIME active Not Available Not Available No t Available cannabidi ol (CBD) extract oil active Not Available Not Available Not Available Vitals Date Recorded Body height Body mass index (BMI) Body weight Heart rate Oxygen saturation Oxygen saturation in Arterial blood by Pulse oximetry Respiratory rate Body temperature Systolic blood pressure Diastolic blood pressure Provider Name and Address Organization Details Last Updated DateTime 3 167.64 cm 34.5 kg/m2 61625.7 7 g 79 /min 97 % 97 % 18 /min 98.3 [degF] 117 mm[Hg] 78 mm[Hg] TOBY TEJADA PA - [facility] 12:58:57 Social History Question Answer Notes LastModified by Organizat ion Details LastModified Time Tobacco Smoking Status Never Smoker TOBY more PA - [facility] 11/30/2022 12:57:35 What Is Your Level Of Alcohol Consumption? None [email or web address] Information not available 11/30/2022 Which Illicit Or Recreational Drugs Have You Used? Cbd Oil [email or web address] Information not available 11/30/2022 Do You Use Any Illicit Or Recreational Drugs? Yes [email or web address] Information not available 11/30/2022 Have You Recently Traveled Abroad? No [email or web address] Information not available 11/30/2022 Do You Or Have You Ever Used Any Other Forms Of Tobacco Or Nicotine? No Information not available 11/30/2022 Sex: Unknown Functional Status None recorded. Mental Status None recorded. Family History Nothing Reported. Medical History No medical history recorded. Gynecological HistoryNo gynecological history recorded. Obstetrics History GPAL:G 0 P 0 0 0 0 Past Encounters Encounter ID Performer Location Encounter Start Date Encounter Closed Date Diagnosis/Indication Diagnosis SNOMED-CT Code Diagnosis ICD10 Code [id number] [address] [place] [address] 07/15/2016 17:08:30 07/15/2016 17:46:27 [id number] [address] [place] [address] 05/02/2018 14:17:45 05/02/2018 15:36:19 [id number] [address] [place] [address] 03/27/2019 18:05:44 03/27/2019 18:42:56 [id number] [address] [place] [address] 02/15/2019 08:37:37 02/15/2019 09:00:52 [id number] [address] [place] [address] 12/30/2017 09:27:49 12/30/2017 10:05:50 [id number] [address] [facility] [place] [address] 09/13/2019 17:37:31 09/13/2019 19:09:59 [id number] [address] [facility] [place] [address] 07/13/2016 13:41:57 07/13/2016 15:06:16 [id number] [address] [facility] [place] [address] 01/02/2018 08:18:58 01/02/2018 09:11:25 [id number] [address] [facility] [place] [address] 03/01/2018 08:30:18 03/01/2018 09:38:51 [id number] [address] [facility] [place] [address] 05/19/2018 08:20:14 05/19/2018 08:49:28 [id number] Jeremy Moses DO [address] [facility] [place] [address] 11/30/2022 12:33:28 11/30/2022 13:40:19 Pain in right hip joint 1457666566 40609 M25.551 Health Concerns Section Related Observation LastModified by Organization Detai ls LastModified Time None Recorded Concern Status LastModified by Organization Details LastModified Time None Recorded Advance Directives Directive None Recorded Payers Encounter Date Sequence Insurance Name Policy Number Policy Carty Covered Member ID Carty Member ID Guarantor Name 05/19/2018 1 [facility] [employer] ACCESS PLUS [id number] Nina Bella [id number] Nina Bella 02/15/2019 1 [facility] [employer] [place] - [place] ACCESS PLUS [id number] Nina Bella [id number] Nina Bella 03/27/2019 1 [facility] [employer] [place] - [place] ACCESS PLUS [id number] Nina Bella [id number] Nina Bella 09/13/2019 1 [facility] [employer] [place] - [place] ACCESS PLUS [id number] Nina Bella [id number] Nina Forbesdavidmaya 11/30/2022 1 [facility] 2 Nina Bella [id number] Nina Bear Jena Notes Date Note Type Note Provider Name and Address Organization Details Recorded Time 11/30/2022 text/html Thigh / HipReported bypatient.Notes:57 yo female c/o R hip pain+ h/o R hip arthritisshe is having a R hip replacement in 2 weeks usually uses a canenow having extreme pain with any weight bearing. using a walker notes worsening pain over the last weekno known traumano rashno f/c/n/v she does not take any medication regularly for her hip painShe did not call her ortho Jeremy Moses, DO [address] [place], [address], [place] - [facility] 11/30/2022 14:31:47 OBGyn Episode No OBEpisode recorded.
--- OUTSIDE RECORDS SUMMARY | 2024-08-29 11:05 | XMS_ITS | Data Portability ---
Author Organization [facility] Address [address] [address] Assessment Encounter Date Assessment Date Assessment LastModified by Organization Details LastModified Time 10/09/2023 10/09/2023 The patient has imaging which shows cervical stenosis at C6-7 below a previous fusion. She also has undergone a previous L3-5 fusion with persistent stenosis above at L2-3. These imaging studies will be repeated as she has increased symptoms after a recent fall. [email or web address] Not available 10/09/2023 22:09:21 11/13/2023 11/13/2023 Patient with cervical stenosis at C6-7 consistent with adjacent level disc degeneration. [email or web address] Not available 11/13/2023 15:19:18 02/04/2024 02/04/2024 Patient is doing well status post C6-7 anterior cervical diskectomy with allograft fusion. She does have some lower back pain and radiculopathy to the right groin suspicious for L3 radiculopathy. [email or web address] Not available 02/04/2024 14:02:16 03/03/2024 03/03/2024 Patient is recovering with moderate reactivation of cervical spondylosis below the level of her fusion. [email or web address] Not available 03/03/2024 12:30:46 04/14/2024 04/14/2024 Patient is recovering status post anterior cervical discectomy with allograft fusion below the level of fusion at C6-7. [email or web address] Not available 04/14/2024 13:45:59 Plan of Treatment Reminders Order Date Submit Date Provider Last Modified By Organization Details Last Modified Time Details Appointments None recorded . Lab None recorded . Referral None recorded . Procedures None recorded . Surgeries None recorded . Imaging XR, lumbar spine 024 024 [email or web address] Not available 14:36:09 Medication Orders None recorded . Patient TargetsNo targets recorded. Patient InstructionsNo instructions recorded. Reason for Referral None Reported. Results Created Date Observation Date Name Description Value Unit Range Abnormal Flag Note LastModifiedBy Organization Detail LastModifiedTime 10/09/19 24 12/16/2022 MRI, lumba r spine , w/o contr ast No observ ation record ed. BAR[facility] Not Available 2023 13:15:44 10/11/19 24 10/09/2023 XR, spine , scoli osis serie s No observ ation record ed. [facility] [address] [place], [address], 10/12/2023 10:26:42 10/11/19 24 10/09/2023 XR, spine , scoli osis serie s No observ ation record ed. [facility] [address] [place], [address], 10/12/2023 10:34:03 10/21/19 24 10/20/2023 MRI, lumba r spine , w/o contr ast No observ ation record ed. [facility] [address] [place], [address], 10/22/2023 13:51:34 10/21/19 24 10/20/2023 MRI, cervi thu spine , w/o contr ast No observ ation [facility] ed. [email or web address] [address] [place], [address], 10/22/2023 13:51:35 01/18/20 24 01/13/2024 elect aminta parmar am No observ ation record ed. [facility] Atention: Jose Rafael [address] [place], [address], 01/19/2024 09:17:55 01/22/20 24 01/18/2024 XR, cervi thu spine , 2 or 3 view No observ ation record ed. [facility] Atention: Jose Rafael [address] [place], [address], 01/26/2024 09:52:50 02/05/20 24 02/04/2024 XR, cervi thu spine , 2 or 3 view No observ ation record ed. [facility] (Medical Records) [address] [place], [address], 02/08/2024 10:04:41 02/05/20 24 02/04/2024 XR, cervi thu spine , 2 or 3 view No observ ation record ed. [facility] (Medical Records) [address] [place], [address], 02/08/2024 10:45:46 02/05/20 24 02/04/2024 XR, lumba r spine No observ ation record ed. [email or web address] Not Available 2023 10:45:23 02/05/20 24 02/04/2024 XR, lumba r spine No observ ation record ed. [facility] (Medical Records) [address] [place], [address], 02/08/2024 10:04:41 03/03/20 24 03/03/2024 XR, cervi thu spine , 2 or 3 view No observ ation record ed. [email or web address] [facility] (Medical Records) [address] [place], [address], 03/04/2024 09:49:59 03/03/20 24 03/03/2024 XR, cervi thu spine , 2 or 3 view No observ ation record ed. [email or web address] Not Available 2023 10:53:50 04/16/20 24 04/14/2024 XR, cervi thu spine , 2 or 3 view [facility]. [facility] [address] [place], [address], 04/18/2024 11:22:21 04/16/20 24 04/14/2024 XR, cervi thu spine , 2 or 3 view No observ [facility]ion [facility] ed. [facility] [address] [place], [address], 04/18/2024 12:55:18 04/18/20 24 04/14/2024 XR, cervi thu spine , 2 or 3 view No observ ation record ed. [email or web address] Not Available 2023 11:08:46 04/18/20 24 04/14/2024 XR, cervi thu spine , 2 or 3 view No observ ation record ed. [address], [address], 04/20/2024 10:07:20 Result Notes None recorded. Problems Name Problem SNOMED Code Status Onset Date Resolution Date Notes Provider Name and Address Organization Details Recorded Time Spinal stenosis in cervical region 78844638 Active DAVION De Jesus [address] [place] [address], [id number] , [facility] 4 15:19:08 Problem Notes None recorded. Procedures Surgical History Date Name Laterality Status Provider Name and Address Organization Details Recorded Time 3 total replacement of right hip joint completed Nabila Garcia [facility] 4 13:25:44 2 lumbar spinal fusion completed Nabila Garcia [facility] 02/04/2024 13:25:16 1 primary fusion of cervical spine completed Nabila Garcia [facility] 02/04/2024 13:25:01 0 shoulder surgery completed Nabila Garcia [facility] 02/04/2024 13:24:41 8 total replacement of left hip joint completed Nabila Garcia [facility] 02/04/2024 13:24:14 Imaging Results Imaging Date Name Status LastModified by Organization Details LastModified Time 12/16/2022 MRI, lumbar spine, w/o contrast completed [facility] Information not available 10/09/2023 13:15:44 10/09/2023 XR, spine, scoliosis series completed [address], [address], 10/12/2023 10:26:42 10/09/2023 XR, spine, scoliosis series completed [address], [address], 10/12/2023 10:34:03 10/20/2023 MRI, lumbar spine, w/o contrast completed [facility] ([facility] [address] [place], [address], 10/22/2023 13:51:34 10/20/2023 MRI, cervical spine, w/o contrast completed [facility] ([facility] [address] [place], [address], 10/22/2023 13:51:35 01/13/2024 electrocardiogram completed [facility] Atention: Jose Rafael [address] [place], [address], 01/19/2024 09:17:55 01/18/2024 XR, cervical spine, 2 or 3 view completed [facility] Atention: Jose Rafael [address] [place], [address], 01/26/2024 09:52:50 02/04/2024 XR, cervical spine, 2 or 3 view completed [facility] (Medical Records) [address] [place], [address], 02/08/2024 10:04:41 02/04/2024 XR, cervical spine, 2 or 3 view completed [facility] (Medical Records) [address] [place] [address], [address], 02/08/2024 10:45:46 02/04/2024 XR, lumbar spine completed Informat ion not available 02/08/2024 10:45:23 02/04/2024 XR, lumbar spine completed [email or web address] [facility] (Medical Records) [address] [place] [address], [address], 02/08/2024 10:04:41 03/03/2024 XR, cervical spine, 2 or 3 view completed [email or web address] [facility] (Medical Records) [address] [place] [address], [address], 03/04/2024 09:49:59 03/03/2024 XR, cervical spine, 2 or 3 view completed Information not available 03/04/2024 10:53:50 04/14/2024 XR, cervical spine, 2 or 3 view completed [email or web address] [address], [address], 04/18/2024 11:22:21 04/14/2024 XR, cervical spine, 2 or 3 view completed [email or web address], [address], 04/18/2024 12:55:18 04/14/2024 XR, cervical spine, 2 or 3 view completed Information not available 04/19/2024 11:08:46 04/14/2024 XR, cervical spine, 2 or 3 view completed [email or web address], [address], 04/20/2024 10:07:20 Procedure Notes None recorded. Medical Equipment None Reported. Allergies Allergen ID Allergen Name Allergen Category Reaction Reaction Severity Criticality Documentation Date Start Date Code Code System Note Provider Name and Address Organization Details Recorded Time [id number] amoxicill in medicatio n rash Not available Not available 02/04/2024 723 RxNorm Nabila more, [facility] 4 13:23:28 5908634 morphine medicatio n rash Not available Not available 02/04/2024 7052 RxNorm Nabila more, [facility] 4 13:23:39 0594105 Vibramyci n medicatio n gi bleed Not available Not available 02/04/202409709 5 RxNorm Nabila more, [facility] 4 13:23:50 Medications Name Sig Start Date Stop Date Status Note LastModified by Organization Details LastModified Time lamotrigine 150 mg tablet TAKE 1 TABLET BY MOUTH TWICE A DAY active Not Available Not Available No t Available prednisone 10 mg tablet active Not Available Not Available Not Available clindamycin HCl 300 mg capsule TAKE 1 CAPSULE BY MOUTH EVERY 8 HOURS UNTIL FINISHED active Not Available Not Available No t Available meloxicam 15 mg tablet active Not Available Not Available No t Available naltrexone 50 mg tablet TAKE 1/2 TABLET BY MOUTH DAILY AT BEDTIME active Not Available Not Available N ot Available clonazepam 0.5 mg tablet PLEASE SEE ATTACHED FOR DETAILED DIRECTIONS active Not Available Not Available N ot Available sertraline 100 mg tablet TAKE 1.5 TABLETS (150 MG TOTAL) BY MOUTH DAILY. active Not Available Not Available No t Available clindamycin HCl 150 mg capsule TAKE 3 CAPSULES BY MOUTH 3 TIMES A DAY FOR 7 DAYS active Not Available Not Available N ot Available valsartan 80 mg tablet TAKE 1 TABLET BY MOUTH EVERY DAY active Not Available Not Available No t Available topiramate 25 mg tablet TAKE 1/2 - 1 TABLET BY MOUTH DAILY BEFORE BED active Not Available Not Available N ot Available meclizine 12.5 mg tablet TAKE 1 TABLET BY MOUTH THREE TIMES A DAY NEEDED NAUSEA/VOMI TING FOR 40 DAYS active Not Available Not Available No t Available risperidone 0.25 mg tablet TAKE 1 TABLET ORALLY DAILY NEEDED FOR OVER THINKING active Not Available Not Available No t Available aspirin 81 mg tablet,delay ed release active Not Available Not Available N ot Available acetaminophe n 500 mg tablet active Not Available Not Available Not Available lamotrigine 25 mg tablet TAKE 1 TAB IN THE AM AND 2 AT BEDTIME AND AFTER 2 WEEKS TAKE 2 TABLET BY MOUTH 2 TIMES A DAY active Not Available Not Available Not Available methocarbamo l 750 mg tablet TAKE 1 TABLET 3 TIMES A DAY BY ORAL ROUTE NEEDED. active Not Available Not Available No t Available cephalexin 500 mg capsule TAKE 1 CAPSULE BY MOUTH THREE TIMES A DAY active Not Available Not Available Not Available pantoprazole 40 mg tablet,delay ed release TAKE 1 TABLET BY MOUTH EVERY DAY active Not Available Not Available No t Available levetiraceta m 750 mg tablet TAKE 1 TABLET BY MOUTH EVERY 12 HOURS active Not Available Not Available No t Available gabapentin 100 mg capsule TAKE 1 CAPSULE BY MOUTH TWICE A DAY active Not Available Not Available No t Available ibuprofen 600 mg tablet TAKE 1 TABLET BY MOUTH THREE TIMES A DAY NEEDED FOR PAIN active Not Available Not Available No t Available zolpidem 10 mg tablet TAKE 1/2 TO 1 TABLET AT BEDTIME NEEDED FOR SLEEP active Not Available Not Available No t Available lamotrigine 100 mg tablet TAKE 1 AND 1/2 TABLET BY MOUTH TWICE A DAY active Not Available Not Available Not Available oxycodone 5 mg tablet TAKE 1 TABLET BY MOUTH EVERY 4 HOURS NEEDED FOR PAIN active Not Available Not Available No t Available valsartan 40 mg tablet TAKE 1 TABLET BY MOUTH EVERY DAY active Not Available Not Available No t Available aripiprazole 5 mg tablet TAKE 1 TABLET BY MOUTH EVERY DAY active Not Available Not Available No t Available rosuvastatin 10 mg tablet TAKE 1 TABLET BY MOUTH EVERYDAY AT BEDTIME active Not Available Not Available No t Available duloxetine 20 mg capsule,kavita yed release TAKE 1 CAPSULE (20 MG) BY MOUTH EVERY DAY active Not Available Not Available No t Available duloxetine 30 mg capsule,kavita yed release TAKE 1 CAPSULE BY MOUTH DAILY FOR 30 DAYS IN ADDITION TO 60 MG DAILY active Not Available Not Available No t Available duloxetine 60 mg capsule,kavita yed release TAKE 1 CAPSULE BY MOUTH EVERY DAY FOR 30 DAYS active Not Available Not Available No t Available GaviLyte-G 236 gram-22.74 gram-6.74 gram-5.86 gram oral solution TAKE 8 OUNCE BY MOUTH DIRECTED FOLLOW PREP INSTRUCTION S GIVEN BY YOUR DOCTOR'S OFFICE active Not Available Not Available No t Available Stimulant Laxative Plus 8.6 mg-50 mg tablet active Not Available Not Available Not Available duloxetine 40 mg capsule,kavita yed release TAKE 1 CAPSULE BY MOUTH EVERY DAY active Not Available Not Available No t Available Vitals Date Recorded Body height Body mass index (BMI) Body weight Provider Name and Address Organization Details Last Updated DateTime 10/09/2023 167.64 cm 35.5 kg/m2 54957.32 g Nabila Garcia [facility] 10/09/2023 14:18:33 Date Recorded Body height Body mass index (BMI) Body weight Provider Name and Address Organization Details Last Updated DateTime 02/04/2024 167.64 cm 35.5 kg/m2 68428.32 g Nabila Garcia [facility] 02/04/2024 13:14:10 Social History None recorded. Functional Status None recorded. Mental Status None recorded. Family History Nothing Reported. Medical History Condition Response arthritis Y hypertension Y seizure disorder Y stroke Y depression Y anxiety disorder Y Gynecological HistoryNo gynecological history recorded. Obstetrics History GPAL:G 0 P 0 0 0 0 Past Encounters Encounter ID Performer Location Encounter Start Date Encounter Closed Date Diagnosis/Indication Diagnosis SNOMED-CT Code Diagnosis ICD10 Code [id number] Sonido Maldonado MD [facility] [address] [address] 10/09/2023 12:17:04 10/09/2023 15:45:27 Spinal stenosis in cervical region 18315725 M48.02 [id number] Sonido Maldonado MD [facility] [address] [address] 11/13/2023 13:54:32 11/13/2023 15:02:23 Spinal stenosis in cervical region 96249800 M48.02 [id number] DAVION Nuno [facility] [address] [address] 02/04/2024 12:13:22 02/04/2024 14:36:09 Spinal stenosis in cervical region 21882697 M48.02 Lumbar spondylosis 15758 0009 M47.896 [id number] DAVION Nuno [facility] [address] [address] 03/03/2024 11:48:32 03/03/2024 12:06:03 Spinal stenosis in cervical region 65440725 M48.02 [id number] Sonido Maldonado MD [facility] [address] [address] 04/14/2024 12:10:58 04/14/2024 14:21:20 Spinal stenosis in cervical region 96639516 M48.02 Health Concerns Section Related Observation LastModified by Organization Detai ls LastModified Time None Recorded Concern Status LastModified by Organization Details LastModified Time None Recorded Advance Directives Directive None Recorded Payers Encounter Date Sequence Insurance Name Policy Number Policy Carty Covered Member ID Carty Member ID Guarantor Name 10/09/2023 1 [facility] (MEDICARE REPLACEMENT/A DVANTAGE - PPO) [id number] Nina Forbesetemaya [id number] Nina Bear Wietecha 10/09/2023 2 [place] [facility] Nina Forbesetecha [id number] Nina Bear Wietecha 11/13/2023 1 [facility] (MEDICARE REPLACEMENT/A DVANTAGE - PPO) [id number] Nina Wietecha [id number] Nina A Wietecha 11/13/2023 2 [place] [facility] Nina Bear Wietecha [id number] Nina Bear Wietecha 02/04/2024 1 [facility] (MEDICARE REPLACEMENT/A DVANTAGE - PPO) [id number] Nina Forbesetecha [id number] Nina Bear Wietecha 02/04/2024 2 [place] [facility] Nina Forbesetecha [id number] Nina Bear Wietecha 03/03/2024 1 [facility] (MEDICARE REPLACEMENT/A DVANTAGE - PPO) [id number] Nina Forbesetemaya [id number] Nina Bear Wietecha 03/03/2024 2 [place] [facility] Nina Bear Wietecha [id number] Nina Bear Wietecha 04/14/2024 1 [facility] (MEDICARE REPLACEMENT/A DVANTAGE - PPO) [id number] Nina Wietemaya [id number] Nina Bear Wietecha 04/14/2024 2 [place] [facility] Nina Forbesetecha [id number] Nina Bella Notes Date Note Type Note Provider Name and Address Organization Details Recorded Time 10/09/2023 text/html I had the pleasu re of seeing Ms. Bella in the office today for a consultation. She is a pleasant 58 y/o female who presents with neck and upper back pain. She reports a fall after a hip-replacement that took place in 2018 that she believes is the origin of the pain is the fall. She says the pain has been getting progressively worse since the fall. She also has a history of cervical and lumbar fusions. At this point, she is no longer working due to the pain and has been on disability for over two years. Today, she rates her lower back pain as a 5/10 and her upper back and neck pain as a 7-9/10.She describes her pain as a shooting tightness in her right thigh with numbness and tingling in her right calve and foot. She describes her neck pain as a tight, pulling that goes into her right shoulder and makes her nauseous. She also has a strange sensation in her right hand - she describes it as not being able to feel exactly what she is touching. She reports that her pain increases throughout the day and that she feels slouched by the end of the day. She has tried physical therapy for her cervical, thoracic, and lumbar spine. She reports that the physical therapy does not provide significant relief. She has also tried pain management injections and reports that they provided very short term relief. She also uses various braces to manage the pain as needed. She takes tylenol as needed and also uses castor oil. At night, she uses THC and believes that it helps her sleep. She also reports that she had several seizure episodes during which her face went numb and she was not able to communicate regularly. She was prescribed medications and was not driving for 18 months. Sonido Maldonado MD [address] [place] [address], [phone], [facility] 10/09/2023 22:10:38 11/13/2023 text/html I had the pleasu re of seeing Mr. Bella in the office for follow-up. She has a 58-year-old female with progressive neck and upper back pain. She has a history of C4-6 ACDF. Her new cervical MRI shows a C6-7 disc osteophyte complex causing moderate to severe stenosis consistent with adjacent level disease. She has tried physical therapy for her cervical, thoracic, and lumbar spine. She reports that the physical therapy does not provide significant relief. She has also tried pain management injections and reports that they provided very short term relief. She also uses various braces to manage the pain as needed. She takes tylenol as needed and also uses castor oil. At night, she uses THC and believes that it helps her sleep. Sonido Maldonado MD [address] [place] [address], [phone], [facility] 11/13/2023 23:09:37 02/04/2024 text/html Ms. Bella returns to the office for her first post-operative appointment. She is s/p ACDF C6-7 performed on 03/19/24. She is recovering well. Today, she rates her pain as a 1/10 and describes it as a weak sensation in her neck and upper back. She also notes that she has had an uncomfortable lump near her incision site that has been aggravated by rubbing against her hard collar. Since the surgery, the numbness and tingling in her hands and fingers has resolved. The pain she was experiencing in her head, shoulders, and chest has also resolved. She is no longer taking oxycodone to manage the pain. She notes that she occasionally uses THC to manage residual pain and help her sleep as needed. She is overall very satisfied with the results of her operation and states that she is feeling much more comfortable Also she is complaining of lumbar radiculopathy into the right groin. She would seen her orthopedist who had done her previous arthroplasty in x-ray showed no evidence of hip pathology. She reports of mild lower back pain and discomfort and pain into the right groin. The pain is worse with activity. The pain is improved with rest. DAVION Nuno [address] [place] [address], [phone], [facility] 02/04/2024 14:26:17 03/03/2024 text/html Ms. Bella returns to the office for her post-operative appointment. She is s/p ACDF C6-7 performed on 03/19/24. She is recovering well. Today, she rates her pain as a 1/10 and describes it as a weak sensation in her neck and upper back. She states recently she has had some increasing pain at the base of her neck into her shoulder blades and shoulder. He describes a dull aching pain at the base of her neck into her shoulders. Otherwise she denies any radiculopathy, weakness or coordination difficulties. She is pleased with her progress. Cervical x-ray shows intact cervical hardware from previous as well as C6-7. She denies fever or chills. DAVION Nuno [address] [place] [address], [phone], [facility] 03/03/2024 12:31:51 04/14/2024 text/html Ms. Bella returns to the office for her post-operative appointment. She is s/p ACDF C6-7 performed on 03/19/24. She is recovering well. Today, she rates her pain as a 1/10 and describes it as a weak sensation in her neck and upper back. She states recently she has had some increasing pain at the base of her neck into her shoulder blades and shoulder. He describes a dull aching pain at the base of her neck into her shoulders. Occasionally she has a shooting sensation when she has severe lower back pain. Otherwise she is doing well. Sonido Maldonado MD [address] [place], [phone], [facility] 04/14/2024 21:27:20 OBGyn Episode No OBEpisode recorded.
--- OUTSIDE RECORDS SUMMARY | 2024-08-29 11:05 | XMS_ITS ---
[facility] Address [address] [address] Care Team Providers Care Vice President Of Recruiting Name Role Phone Nick, Floyd Primary Care Provider Aleisha Holguin Unavailable [phone] Allergies Allergen (clinical drug ingredient) Drug/Non Drug Allergy documented on EMR Reaction Allergy Type Onset Date Status Vibramycin Unknown Drug Allergy Active Latex Latex Unknown Allergy Active morphine Morphine Unknown Drug Allergy Active REASON FOR VISIT Pcp-02/28, Skin Problem, Heel pain Medications Medication SIG (Take, Route, Frequency, Duration) Notes Start Date End Date Status DULoxetine HCl 60 MG Oral for 30 Days Active Baby Aspirin Active Rosuvastatin Calcium 10 MG Oral for 90 Days Active Pantoprazole Sodium Active risperiDONE 0.25 MG 1 tablet Orally Once a day for 30 days Active lamoTRIgine 150 MG Oral for 30 Days Active Valsartan 40 MG Oral for 90 Days Active Social History Tobacco Use: Social History [...] W/U Status Risk Notes Problem Plantar fibromatosis (20709320) Plantar fibromatosis (M72.2) Active confirmed Problem Plantar fascial fibromatosis (94134370) Plantar fasciitis, bilateral (M72.2) Active confirmed Vital Signs Height 5 ft 6 in in 07/13/2024 Weight 214 lbs 07/13/2024 BMI 34.54 kg/m2 07/13/2024 Blood pressure systolic 120 mm Hg 07/13/20 24 Blood pressure diastolic 80 mm Hg 024 Encounters Encounter Location Date Provider Diagnosis [facility] [address] [place] [address] 07/13/2024 Aleisha Mahan Pain in right foot M79.671 ; Plantar fibromatosis M72.2 and 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 Assessments Encounter Date Diagnosis (ICD Code) Assessment Notes Treatment Notes Treatment Clinical Notes Section Notes 07/13/2024 Pain in right foot (ICD-10 - M79.671) 07/13/2024 Plantar fibromatosis (ICD-10 - M72.2) 07/13/2024 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 (ICD-10 - D21.21) 07/13/2024 Other Patient Educated with: HEEL CORD STRETCHES.pdf (HEEL CORD STRETCHES.pdf) Patient Educated with: RICE THERAPY.pdf (RICE THERAPY.pdf) Plan Of Treatment Treatment Notes Assessment Notes Other Patient Educated wit h: HEEL CORD STRETCHES.pdf (HEEL CORD STRETCHES.pdf) Patient Educated with: RICE THERAPY.pdf (RICE THERAPY.pdf) Next Appt Details Follow Up: 2 Months, Reason: Provider Name:Aleisha coughlin, 09/21/2024 10:30:00 AM, [address] [place], [address], Progress Notes * Sindy BELLAOB:[birth year] (59 yo F)Acc No.[id number]:07/13/2024 Progress Notes Patient:?Nina Bella Provider:?Aleisha Mahan DPM :1965???Age:59 Y???Sex:Female D ate:07/13/2024 Address:[address] [place], [place] [id number] Pcp:Floyd Romero Subjective: * Chief Complaints: * ???Pcp-02/28Skin ProblemHeel pain * HPI: ???Skin problems:?Nature:?Lump, tender.?Location:?Bottom , Arch , Right.?Course:?improved.?Aggravated by:?any pressure , standing , walking.?Treatments:?rest.?Heel pain:?Nature:?tenderness, sharp pain, stiffness.?Location:?Arch, RIGHT greater than Left.?Duration:?several months.?Course:?improved.?Aggravated:?standing, walking, walking first thing in the morning/after rest.?Treatments:?rest/alter normal daily activity.? * ROS:?General/Constitutional:?Nausea?denies.?Vomiting?denies.?Hunger Thirst?denies.?Loss appetite?admits, denies.?Chills?denies.?Fatigue?denies.?Fever?denies.?Night Sweats?denies.?Unexplained weight loss?denies.?Unexplained weight gain?denies.?HEENTM:?Dentures?denies.?Dizziness?admits, denies.?Glasses/contacts?admits, denies.?Retinopathy?denies.?Blurred/double vision?denies.?TMJ?denies.?Discharge/drainage?denies.?Implants?denies.?Sore throat?denies.?Dental implants?denies.?Hard of hearing ?denies.?Difficulty chewing/swallowing/speaking?denies.?Nose bleeds?denies.?Sore mouth?denies.?Respiratory:?On Oxygen?denies.?Pneumonia/pleurisy?denies.?Bronchitis?denies.?Emphysema?denies.?C oughing?denies.?Cough blood?denies.?Shortness of breath?denies.?Wheezing?denies.?Cardiovascular:?Pacemaker?denies.?MVP?denies.?WPW?denies.?CHF?denies.?Heart attack?denies.?Septal defect?denies.?Rapid beat?denies.?Chest pain ?denies.?Atrial Fib.?denies.?Murmur/Palpitations?denies.?Gastrointestinal:?Hemorrhoids?denies.?Stomach/Abdominal pain?admits, denies.?Dark blood stool?denies.?Irritable bowel ?denies.?Constipation?admits, denies.?Diarrhea?admits, denies.?Hematology:?Swelling?denies.?Clots?denies.?Varicose Veins?denies.?Bruising?admits, denies.?Bleeding problem?denies.?Genitourinary:?Blood urine?denies.?Frequent/Painfu/urination/bladder control?admits, denies.?Kidney stones?denies.?Infection (UTI)?denies.?Nephropathy?denies.?sex trans dis (STD)?denies.?Prostate?denies.?Musculoskeletal:?Hammertoes?denies.?Bunions?denies.?Back Pain?admits, denies.?Muscle Cramps/ Resting?denies.?Muscle cramps / walking?admits, denies.?Generalized aches and pains?denies.?Weakness?denies.?Integ.:?Spence?denies.?Scars?denies.?Corns/calluses?denies.?Ingrown nails?denies.?Painful nails?denies.?Open Sores?denies.?Rashes?denies.?Neurologic:?Difficulty sleeping?denies.?Brain disorder?admits, denies.?Numbness?denies.?Balance trouble?admits, denies.?Confusion?admits, denies.?Fainting/blackouts?denies.?Tingling?denies.?Tremors?denies.? * Medical History:? * Surgical History:?hip replac ement back fusions endoscopy 07/12/24colonoscopy 07/08/24 * Hospitalization/Major Diagno stic Procedure:?Denies Past Hospitalization * Family History:?Mother: dece ased, diagnosed with Family history of arthritis.?Father: , diagnosed with Unspecified essential hypertension, Other malignant neoplasm of unspecified site.? * Social History:?Tobacco Use:?Tobacco Use/Smoking?Are you a:?former smoker ?Additional Findings: Tobacco Non-User?Ex-cigarette smoker ?Tobacco use other than smoking?Are you an other tobacco user??Yes ???Drugs/Alcohol:?Drugs?Have you used drugs other than those for medical reasons in the past 12 months??Yes ?Alcohol Screen?Did you have a drink containing alcohol in the past year??No ?Points?0 ?Interpretation?Negative ???Miscellaneous:?Caffeine: yes, frequency:. ?Children: yes, 1. ?no Exercise. ?Marital status: single. * Medications:?TakingBaby Aspi rin Pantoprazole Sodium risperiDONE 0.25 MG Tablet 1 tablet Orally Once a dayRosuvastatin Calcium 10 MG Tablet Oral lamoTRIgine 150 MG Tablet Oral Valsartan 40 MG Tablet Oral DULoxetine HCl 60 MG Capsule Delayed Release Particles Oral Medication List reviewed and reconciled with the patientTaking Baby Aspirin Taking Pantoprazole Sodium Taking risperiDONE 0.25 MG Tablet 1 tablet Orally Once a dayTaking Rosuvastatin Calcium 10 MG Tablet Oral Taking lamoTRIgine 150 MG Tablet Oral Taking Valsartan 40 MG Tablet Oral Taking DULoxetine HCl 60 MG Capsule Delayed Release Particles Oral Medication List reviewed and reconciled with the patient * Allergies:?LatexMorphineVibr amycinyes[Allergies Verified] Objective: * Vitals:?Ht: 5 ft 6 in, Wt:21 4, BMI:34.54, Shoe size: 9.5, BP:120/80 mm Hg, Ht- cm: 167.64 cm, Wt-k.07 kg. * Examination: ???General Examination: ?GENERAL APPEARANCE:?Reveals a pleasant, alert, well-nourished, well- developed, well hydrated individual, who demonstrates proper attention to hygiene/body habitus, and is in no acute distress, Pt serves as own?historian for office visit today.?ORIENTED:?person, place, and time.?Neurological: ?SENSORY:?Neurological exam reveals intact sensorium, pain sensation normal, vibration sensation intact, pinprick sensation is normal in the lower extremities, Pt denies, anesthesia, burning, paresthesia, tingling, B/L.?TINEL'S COMPRESSION:?Negative tarsal tunnel, mariusz pedis, and medial calcaneal nerves.?DEEP TENDON REFLEXES:?Achilles, 2/4, B/L.?Vascular: ?DP PULSES(B):?3/4, B/L.?PT PULSES(B):?3/4, B/L.?CAPILLARY FILL TIME:?immediate, all digits, B/L.?TROPHIC CONDITION-TEXTURE/ELASTICITY/TURGOR/HAIR GROWTH(B):?normal, B/L.?TEMPERTURE GRADIENT(C):?warm to cool, proximal to distal, B/L.?PIGMENTATION:?normal, B/L.?EDEMA(C):?absent, B/L.?Dermatologic: ?SKIN FINDINGS:?Skin shows sign(s) of, a semi-firm, painful, non- translucent, non-pulsatile, nonmobile Sub Fascial tumor amy. 15 mm, Plantar, Midfoot right.?Orthopedic: ?MUSCLE STRENGTH:?5/5 all groups in a symmetrical fashion , B/L.?FOOTWEAR:?shoe gear properties exacerbate patients foot/toe deformity.?Heel Pain: ?INSPECTION REVEALS:?Pain on Palpation to Plantar Fascia med. and central bands, intrinsic musc., infra-calcaneal bursa, and med calc tubercle, B/L, No pain: posterior/superior heel, achilles bursa/tendon, sinus tarsi, peroneals, or with lateral heel compression; no limited STJ ROM, calor, or ecchymosis , RIGHT greater than Left.? * Physical Examination:?L1930 Nightsplint AFO:?Application of static AFO, including soft interface material, adjustable for fit/ positioning/ pressure reduction, may be used for minimal ambulation, prefabricated, including fitting and adjustment:?Medium, Right.? Assessment: * Assessment: 1.?Pain in right foot - M79. 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 Plan: * Treatment: * Procedure Codes:?L1930 AFO P LASTIC/OTH MATERIAL PREFAB * Preventive Medicine:? ??Counseling:?Discussion:?-04: Office or other outpatient visit for the evaluation and management of a new patient, which required a medically appropriate history and/or examination and MODERATE level of DECISION MAKING for: 1 OR MORE CHRONIC PROBLEM(S) THATS WORSENING, 2 STABLE CHRONIC PROBLEMS, A NEWLY DIAGNOSED PROBLEM WITH UNCERTAIN PROGNOSIS, AN ACUTE COMPLICATED INJURY WITH MULTIPLE TREATMENT OPTIONS, OR AN ACUTE PROBLEM WITH ACCOMPANYING SYSTEMIC SYMPTOMS, THAT POSE(S) A MODERATE RISK OF MORBIDITY. THIS CONDITION MAY ALSO INCLUDE RX DRUG MANAGEMENT, OR A DECISON FOR MINOR SURGERY. The visit on the day of the encounter encompassed interpreting the data and educating the patient as to the nature of their condition, treatment options available according to their individual PMH, meds, allergies, and overall health/living conditions, as well as any potential risks or complications that may occur from a failure to adhere to, and participate in, the recommended course of therapy. The discussion included a complete verbal, and/or written explanation of the examination results, any x-rays taken, the proposed diagnosis, and outline of the treatment plan. A schedule for future care needs was also explained. The patient verbalized an understanding of the instructions at this time and agreed to be an active participant in their treatment. If the patient should think of any questions or concerns after the visit, I have encouraged the patient to call the office.?Fibromas:?The patient was counseled on the diagnosis, potential etiologies, and treatment options for their Fibroma condition. We discussed the risks and benefits of each option from performing no treatment, to utilizing OTC topical skin creams/ointments, to utilizing prescription topical creams/ointments such as Verapamil, to utilizing customized compounded topical medications, change in shoes, pressure accomidative innersoles, padding, deep tissue massage, injections of cortisone, sclerosis injections, EPAT/ESWT, as well as Surgical excision. We discussed the advantages and disadvantages of each possible treatment and importance for adherence to all the recommended therapies for optimum success and avoid potential complications such as open sore/infection/possible hospitalization. We discussed the potential effectiveness of each topical preparation as well as each ones possible side effects and/or patient medication interactions. We discussed the procedure for surgical removal, its potential benefits, the anesthesia, post-op recuperation and need for complete NWB/Crutches/Walker for at least a month, and possible complications such as failure, nerve damage resulting in permanent numbness, infection, scarring, and recurrence. Patient questions re: use, dosage, successful outcomes, application consistency, and surgical treatment were reviewed and the patient verbalized that all answers were clearly understood.?Heel pain:?FASCIITIS: I explained to the patient the possible etiologies of Plantar Fasciitis including foot type/shoegear/activity level/exercise routine and the risks/benefits of all the different treatment options for heel pain including: No treatment at all, Rest, Ice, NSAIDs(only if well tolerated after meals), New/supportive Shoegear, Strappings and Tapings, Stretching exercises, Deep Tissue Massage, Heel cups/cushions, Arch support/shoe inserts, Custom orthoses, Topical analgesics including Aspercream/Voltaren gel, Night splint AFO for am stiffness, Cortisone injection therapy, Cast boot with crutches/cane/or walker for assisted ambulation, Physical Therapy, EPAT/ESWT, Interfil injection therapy, as well as surgical Montgomery/Endoscopic Fasciitomy surgical procedures if needed. Recommendations were made to limit barefoot walking, eliminate wearing nonsupportive shoegear (i.e. flip-flops or sandals, or a shoe with an easily bendable, foldable, or twistable sole) and wear shoegear with a good solid sole, a supportive arch, and plenty of room for an insert/orthotic if necessary. If wearing sandals was required by the patient, we recommended orthopedic sandals such as Orthoheel or Birkenstock even while in the home. If the patient wore heels in the past, we recommended they continue, but eliminate the use of flats. The advantages and disadvantages of each option were discussed and the patients questions re: types of shoegear, custom vs prefabricated inserts, activity level, PO vs Topical medications (and their respective potential complications/drug interactions/side effects), and consistency in home treatment regimens for optimal success were answered to their satisfaction. Literature detailing plantar fasciitis and the various treatment options were dispensed and reviewed.?Orthotics:?I explained to the patient the benefits of OT use. I explained that orthoses are medically necessary to decrease the foot pain through proper mechanical control, cushion the foot by accomidating the soft tissue, I explained to the patient the benefits of OT use. I explained that orthoses are medically necessary to decrease the foot pain through proper mechanical control, support of their foot , decrease stretch/strain on the plantar fascia.?P.R.I.C.E.:?The patient was counseled on the use of P.R.I.C.E. and NSAIDS (if well tolerated) to aid in the recovery from their painful condition.?Shoe Gear Counseling:?The patient and I reviewed the types of shoes they should be wearing. My recommendation included obtaining a well-fitted shoe with a good supportive, non-foldable nor twistable sole, plenty of toe/room for the forefoot, and proper arch support. Based on todays examination, I recommended the patient look for new shoes, by having their feet professionally measured. We discussed that generally the best time of the day for a shoe fitting is the afternoon. Different shoes types and brands to best match the patients occupation and vocation were discussed. Specific brand selection will be up to the patient, their individual foot condition/deformities, and fit. The patient and I reviewed the standard new shoe break in period by wearing them for a few hours a day while checking for redness or sores as wear time is increased. The patient verbally confirmed to understanding the information discussed.?Steriod Injection:?I explained that a steroid and local anesthetic injections are administered to relieve pain and inflammation and thereby meant to improve function. I explained the possible complications including but not limited to signs/symptoms of steroid flare, infection, bruising, atrophy, discoloration of skin, change/deviation in toe position, and that additional injections may be necessary, cortisone post-injection informative educational handout was dispensed to and reviewed with the patient.?Stretching Exercises:?Stretching and deep tissue massage exercises for the patients injury/diagnosis were discussed and demonstrated, handouts were dispensed.? * Follow Up:?2 Months * Images: * Sign off status: Completed true * Provider:?Aleisha Mahan DPM Date:?02/2024 Generated for Wayne knutson/Ximena/Marshalitting on:?08/29/2024 11:05 AM EST History and Physical Notes * HPI (History of Present Illness) Category Sub-Category Detail Notes Category Not es Heel pain Duration: several months Nature: tenderness, sharp pa in, stiffness Location: Arch, RIGHT greater than Left Aggravated: standing, walking, w alking first thing in the morning/after rest Course: improved Treatments: rest/alter normal da bart activity Skin problems Nature: Lump, tender Location: Bottom , Arch , Righ t Course: improved Aggravated by: any pressure , stand ing , walking Treatments: rest Physical Examination Category Sub-Category Detail Notes Section Note s L1930 Nightsplint AFO Application of sta tic AFO, including soft interface material, adjustable for fit/ positioning/ pressure reduction, may be used for minimal ambulation, prefabricated, including fitting and adjustment: Medium , Right Examination Category Sub-Category Detail Notes Category Not es Heel Pain INSPECTION REVEALS: Pain on Palp ation to Plantar Fascia med. and central bands, intrinsic musc., infra-calcaneal bursa, and med calc tubercle, B/L, No pain: posterior/superior heel, achilles bursa/tendon, sinus tarsi, peroneals, or with lateral heel compression; no limited STJ ROM, calor, or ecchymosis , RIGHT greater than Left Neurological SENSORY: Neurological exa m reveals intact sensorium, pain sensation normal, vibration sensation intact, pinprick sensation is normal in the lower extremities, Pt denies, anesthesia, burning, paresthesia, tingling, B/L TINEL'S COMPRESSION: Negative tarsal rafal carlton, mariusz pedis, and medial calcaneal nerves DEEP TENDON REFLEXES: Achilles, 2/4, B/L Dermatologic SKIN FINDINGS: Skin shows sign( s) of, a semi-firm, painful, non-translucent, non-pulsatile, nonmobile Sub Fascial tumor amy. 15 mm, Plantar, Midfoot right Orthopedic FOOTWEAR: shoe gear proper ties exacerbate patients foot/toe deformity MUSCLE STRENGTH: 5/5 all groups in a symmetrical fashion , B/L General Examination GENERAL APPEARANCE: Reveals a pleasant, alert, well- nourished, well-developed, well hydrated individual, who demonstrates proper attention to hygiene/body habitus, and is in no acute distress, Pt serves as own historian for office visit today ORIENTED: person, place, and t atiya Vascular DP PULSES (B): 3/4, B/L PT PULSES (B): 3/4, B/L CAPILLARY FILL TIME: immediate, all digi ts, B/L TEMPERTURE GRADIENT (C): warm to cool, p roximal to distal, B/L TROPHIC CONDITION-TEXTURE/ELASTICITY/TURGOR/HAIR GROWTH (B): normal, B/L EDEMA (C): absent, B/L PIGMENTATION: normal, B/L
--- OUTSIDE RECORDS SUMMARY | 2024-08-29 11:05 | XMS_ITS ---
Author Organization [facility] Address [address] [place] [address] Care Team Providers Care Clothing Worker Name Role Phone Floyd Romero Primary Care Provider Aleisha Holguin Unavailable [phone] REASON FOR VISIT bought Pedag viva sport red #40 Encounters Encounter Location Date Provider Diagnosis [address] [address] 07/13/2024 Aleisha Mahan Plan Of Treatment Next Appt Details Provider Name:Aleisha coughlin, 09/21/2024 10:30:00 AM, [address] [place], [address], Progress Notes * Sindy BELLAOB:[birth year] (59 yo F)Acc No.[id number]:07/13/2024 Patient:?Nina Bella :1965???Age:59 Y???Sex:Female Address:[address] [facility] [address] * true * Date:? Generated for Printi eamon/Ximena/eTransmitting on:?08/29/2024 11:05 AM EST
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
== END 2024-08-29 12:00 | disposition home or self-care (01) ==
LOC: HO.HOP 11:03
PROVIDERS: PCP Internal Medicine; Visit Provider Clinical Nurse Specialist Psychiatric/Mental Health
DX: F43.12 Post-traumatic stress disorder, chronic (principal); F41.1 Generalized anxiety disorder; F33.1 Major depressive disorder, recurrent, moderate; F44.9 Dissociative and conversion disorder, unspecified
CPT/HCPCS: 99215

== ENCOUNTER → 2024-08-29 11:03 | Outpatient (BNVA) | payer MEDICARE, MEDICAID, SELFPAY | PROVIDERS: PCP Internal Medicine; Visit Provider Clinical Nurse Specialist Psychiatric/Mental Health | DX: F43.12 Post-traumatic stress disorder, chronic (principal); F41.1 Generalized anxiety disorder; F33.1 Major depressive disorder, recurrent, moderate; F44.9 Dissociative and conversion disorder, unspecified | CPT/HCPCS: 99212 ==

== ENCOUNTER 2024-10-10 13:33 | Outpatient (AMB) | payer MEDICARE, MEDICAID, SELFPAY ==
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
--- OUTSIDE RECORDS SUMMARY | 2024-10-10 14:54 | XMS_ITS | Clinical Summary ---
Author Organization [address] Address [address] [place] [address] [place] [address] Phone Care Team Providers Care Well Tender Name Role Phone Floyd Romero MD Primary Care Provider Allergies Active Allergy Reactions Criticality Noted Date Comments Amoxicillin Hives,Rash Medium 03/18/2018 rash Latex Itching Low 02/05/2022 C/O: itching C/O: itching Morphine Hives,Rash Low 10/12/2010 Other reaction(s): rash Doxycycline Calcium 01/28/2024 Medications Medication Sig Dispensed Refills Start Date End Date Status aspirin 81 mg EC tablet Take 1 tablet (81 mg total) by mouth 1 (one) time each day. Active clonazePAM (KlonoPIN) 0.5 mg tablet Take 1 tablet (0.5 mg total) by mouth 2 times daily as needed. Take 1/2 tablet Active DULoxetine (CYMBALTA) [address] capsule Take 1 capsule (30 mg total) by mouth 1 (one) time each day. Active DULoxetine (CYMBALTA) [address] capsule Take 1 capsule (60 mg total) by mouth 1 (one) time each day. Active risperiDONE (RisperDAL) 0.25 mg tablet Take 1 tablet (0.25 mg total) by mouth 1 (one) time each day. Active lamoTRIgine (LaMICtal) 200 mg tablet Take 1 tablet (200 mg total) by mouth 2 (two) times a day. Active rosuvastatin (CRESTOR) 10 mg tablet Take 1 tablet (10 mg total) by mouth 1 (one) time each day. 90 each 1 08/01/2024 Active valsartan (DIOVAN) 40 mg tablet Take 1 tablet (40 mg total) by mouth 1 (one) time each day. 90 each 1 08/01/2024 Active Active Problems Problem Noted Date Diagnosed Date History of non anemic vitamin B12 deficiency Class 2 severe obesity with serious comorbidity and body mass index (BMI) of 36.0 to 36.9 in adult 06/18/2024 Adenoma of colon 12/28/2023 Overview (06/18/2024): History of adenoma greater than 10 mm. Last colonoscopy 03/2021, follow-up 5 years Anxiety and depression 12/24/2023 Gastroesophageal reflux disease 12/24/2023 Low magnesium level 12/24/2023 Other hyperlipidemia 12/24/2023 Primary hypertension 12/24/2023 PTSD (post-traumatic stress disorder) 12/24/2023 Seizures 12/24/2023 Resolved Problems Problem Noted Date Diagnosed Date Resolved Date Vitamin B12 deficiency 12/24/202308/01 Vitamin D deficiency 12/24/2023 024 Encounters Date Type Department Care Team Description 09/30/2024 9:00 AM EST Treatment Pelvic Floor Rehabilitation - [address] [phone] Yessica Sanchez PT Urinary incontinence, unspecified type (Primary Dx); Constipation, unspecified constipation type; Urgency of urination; Pelvic pain; Muscle spasm; Muscle weakness 09/29/2024 2:00 PM EST Office Visit Urogynecology - [address] [phone] Kiersten Sherwood [employer] Pelvic pain in female (Primary Dx); Urinary incontinence, unspecified type; Urgency of urination; Nocturia 09/19/2024 1:47 PM EST - 09/19/2024 11:59 PM EST Hospital Encounter [facility] CT Scan [address] [place] [address] Weight loss, non-intentional; Right-sided abdominal pain of unknown cause Discharge Disposition: Home or Self Care 09/13/2024 9:00 AM EST Office Visit Gastroenterology - [address] [phone] Jaycee Hilario PA Right-sided abdominal pain of unknown cause (Primary Dx); Weight loss, non-intentional 09/13/2024 Telephone Gastroenterology - [address] [phone] Jaycee Hilario PA 09/08/2024 7:53 AM EST - 09/08/2024 11:59 PM EST Hospital Encounter [facility] Ultrasound [address] [place] [id number] Right-sided abdominal pain of unknown cause; Early satiety Discharge Disposition: Home or Self Care 08/01/2024 1:00 PM EST Office Visit Adult Medicine [address] [phone] Floyd Romero MD Primary hypertension (Primary Dx); Other hyperlipidemia; Anxiety and depression; PTSD (post-traumatic stress disorder); Class 2 severe obesity due to excess calories with serious comorbidity and body mass index (BMI) of 36.0 to 36.9 in adult (CMS/HCC); Seizures (CMS/HCC); History of non anemic vitamin B12 deficiency; Encounter for screening for HIV; Urinary incontinence, unspecified type; Need for prophylactic vaccination and inoculation against influenza; Right ear pain; Vitamin D deficiency 07/27/2024 1:40 PM EST Office Visit Gastroenterology - [address] [phone] Jaycee Hilario PA Right-sided abdominal pain of unknown cause (Primary Dx); Early satiety; Weight loss, non-intentional 07/20/2024 Telephone Gastroenterology - [address] [phone] Real Penny [place] Results 07/11/2024 Telephone Gastroenterology - [address] [phone] Real Penny [place] Results from Last 3 Months Immunizations Name Administration Dates Next Due Influenza trivalent, MDCK, 0 .5mL, preservative free (Flucelvax) 6mo and older 08/01/2024 Moderna SARS-CoV-2 COVID-19, mRNA, LNP-S, preservative free 07/08/2021 Pfizer SARS-CoV-2 COVID-19, mRNA, LNP-S, preservative free 10/19/2020,09/28/2020 Tdap Tetanus diptheria acell ular pertussis (Boostrix; Adacel) 7yo and older 03/11/2018 Surgical History Surgery Date Site/Laterality Comments SHOULDER SURGERY 2019 Right PROCEDURE: HISTORICAL SHOULDER SURGERY; COMMENT: ? arthroscopy HIP ARTHROPLASTY 2017 Bilateral PROCEDURE: HISTORICAL HIP REPLACEMENT; COMMENT: and 2022 OTHER SURGICAL HISTORY 2021 lumbar fusion OTHER SURGICAL HISTORY 2021 cervical fusion COLONOSCOPY 03/2021 PROCEDURE: HISTORICAL COLONOSCOPY; COMMENT: Internal and external hemorrhoids, otherwise unremarkable. On a 5-year schedule due to history of adenoma greater than 10 mm APPENDECTOMY PROCEDURE: HISTORICAL APPENDECTOMY SECTION, LOW TRANSVERSE 06/2002 COLONOSCOPY 07/07/2024 recall 5-years. ESOPHAGOGASTRODUODENOSCOPY 07/07/2024 Bx suggestive of celiac vs SIBO, labs negative for celiac. Negative h. pylori. CERVICAL FUSION Medical History Medical History Date Comments Vitamin B12 deficiency 12/24/2023 DX:Vitami n B12 deficiency Hypertension Vitamin B12 deficiency 12/24/2023 Vitamin D deficiency 12/24/2023 Epilepsy ([facility]/HCC) Stroke ([facility]) Family History Medical History Relation Name Comments Hypertension Brother back issues Celiac disease Daughter Alicja Hypertension Father Joh Prostate cancer Father Johm HTN Pancreatic cancer Maternal Grandfather Ovarian cancer Maternal Grandmother Other: Sepsis Mother Heart attack Paternal Grandfather Dont know Breast cancer Paternal Grandmother 70s Hypertension Sister Violeta No Known Problems Son Relation Name Status Comments Brother Alive Daughter Alicja Alive Father Johm Maternal Grandfather Maternal Grandmother Mother Paternal Grandfather Dont know Paternal Grandmother Sister Violeta Alive Son Alive Social History Tobacco Use Types Packs/Day Years Used Date Smoking Tobacco: Former Cigarettes Q uit: 09/07/2017 Smokeless Tobacco: Never Tobacco Cessation:Counseling Given: Not Answered Alcohol Use Standard Drinks/Week Comments Not Currently 0 (1 standard drink = 0.6 oz pur e alcohol) Housing Instability Answer Date Recorde d Are you worried that in the next 2 months you may not have stable housing? No 07/30/2024 Food Access & Nutrition Answer Date Rec orded Do you have access to a vari ety of food including fruits and vegetables? Yes 07/30/2024 Access to Healthcare Answer Date Record ed Within the last 3 months, ho w many times did you visit the emergency department for your medical care? 1 07/30/2024 Health Literacy Answer Date Recorded How often do you need to hav e someone help you when you read instructions, pamphlets, or other written material from your doctor or pharmacy? Sometimes 07/30/2024 Caregiver: How often do you need to have someone help you when you read instructions, pamphlets, or other written material from your doctor or pharmacy? Not on file 07/30/2024 Financial Risk Answer Date Recorded How hard is it for you to pa y for the very basics like food, housing, medical care, and air conditioning / heating? Not very hard 07/30/2024 Transportation Answer Date Recorded Has the lack of transportati on kept you from meetings, work, or from getting things needed for daily living? No Has the lack of transportati on kept you from medical appointments or from getting medications? No 07/30/2024 Social Isolation Answer Date Recorded How often do you feel lonely or isolated from those around you? Sometimes 07/30/2024 Food Risk Answer Date Recorded Within the past 12 months we worried whether our food would run out before we got money to buy more. Not on file 07/30/2024 Within the past 12 months th e food we bought just didn't last and we didn't have money to get more. Never true 07/30/2024 Dependent Care Answer Date Recorded Do you need help finding or paying for care for your loved ones. For example, child and family services specialist or elderly care for an older adult? No 07/30/2024 Education Answer Date Recorded Do you think completing more education or training, like finishing a GED, going to college, or learning a trade, would be helpful for you? No 07/30/2024 Living Situation Answer Date Recorded What is your living situation? 1 09/29/2023 Sex and Gender Information Value Date Recorded Sex Assigned at Female 09/14/2024 12:15 PM EST Gender Identity Female 09/14/2024 12:15 PM EST Sexual Orientation Straight 09/14/2024 3: 25 PM EST Job Start Date Occupation Industry Not on file Not on file Not on file Obstetrics History Para Term AB IAB SAB Ectopic Multiple Livin g Live Births 1 1 1 Date Outcome GA Total Labor Labor/2nd/3rd Weight Sex Type Anes PTL Melissa A1 A5 Name Clin Term Last Filed Vital Signs Vital Sign Reading Time Taken Comments Blood Pressure 139/83 09/29/2024 1:57 PM EST Pulse 78 09/29/2024 1:57 PM EST Temperature 36.7 ??C (98 ??F) 08/01/2024 1:03 PM EST Respiratory Rate 16 08/01/2024 1:03 PM EST Oxygen Saturation 99% 08/01/2024 1:03 PM EST Inhaled Oxygen Concentration - - Weight 89.4 kg (197 lb) 09/29/2024 1:57 PM EST Height 167.6 cm (5' 6 ) 09/13/2024 8:55 AM EST Body Mass Index 31.8 09/13/2024 8:55 AM EST Plan of Treatment Upcoming Encounters Date Type Department Care Team (Late st Contact Info) Description 10/17/2024 9:20 AM EST Office Visit Gastroenterology - [address] [facility] [address] [place] [phone] Jaycee Hilario PA [address] [facility] [address] [place] [address] 10/27/2024 2:45 PM EST Office Visit Urogynecology - [address] [phone] Kiersten Sherwood [employer] [address] [address] 11/04/2024 2:30 PM EST Treatment Pelvic Floor Rehabilitation - [address] [phone] Yessica Sanchez PT [address] [address] 11/11/2024 11:00 AM EST Treatment Pelvic Floor Rehabilitation - [address] [phone] Yessica Sanchez, PT [address] [address] 11/18/2024 2:00 PM EDT Treatment Pelvic Floor Rehabilitation - [address] [phone] Yessica Sanchez, PT [address] [address] 11/25/2024 11:00 AM EDT Treatment Pelvic Floor Rehabilitation - [address] [phone] Yessica Sanchez, PT [address] [address] 12/02/2024 1:00 PM EDT Treatment Pelvic Floor Rehabilitation - [address] [phone] Yessica Sanchez, PT [address] [address] 12/09/2024 2:00 PM EDT Treatment Pelvic Floor Rehabilitation - [address] [phone] Yessica Sanchez, PT [address] [address] 01/31/2025 8:30 AM EDT Office Visit Adult Medicine [address] [phone] Suyapa Saini, DAVION [address] [place] [address] 03/21/2025 1:50 PM EDT Appointment Radiology Department - [address] [phone] Health Maintenance Due Date Last Done Comments Cervical Cancer Screening: Pap Smear 1986 Zoster Vaccines (2 of 2) 09/02/2021 07/08/2021 Medicare Annual Wellness Visit 08/10/2022 COVID-19 Vaccine ( season) 2024 07/08/2021, 10/19/2020, 09/28/2020 Depression Screening 07/30/2025 07/30/2024 Social Influencers of Health Screening 07/30/2025 07/30/2024 Hypertension/CHF/CAD Annual BMP Blood Test 09/15/2025 09/15/2024, 08/12/2024, 03/09/2024, Additional history exists Breast Cancer Screening 03/14/2026 03/14/2024, 03/14 Colorectal Cancer Screening: Colonoscopy 03/18/2026 03/18/2021, 11/03/1999 DTaP,Tdap,and Td Vaccines (3 - Td or Tdap) 03/11/2028 03/11/2018, 11/08/2012 Cholesterol Screening (Lipid Panel) 08/12/2029 08/12/2024, 03/09/2024, 03/09/2024 RSV Immunization Patients 60+ Years Old (1 - 1-dose 75+ series) 2040 Hepatitis C Screening Completed 12/24/2023 Influenza Vaccine Completed 08/01/2024, , 07/08/2021, Additional history exists HIV Screening Completed 08/12/2024 HIB Vaccines Aged Out No longer eligi ble based on patient's age to complete this topic HPV Vaccines Aged Out No longer eligi ble based on patient's age to complete this topic Hepatitis A Vaccines Aged Out No long er eligible based on patient's age to complete this topic Hepatitis B Vaccines Discontinued IPV Vaccines Aged Out No longer eligi ble based on patient's age to complete this topic MMR Vaccines Aged Out No longer eligi ble based on patient's age to complete this topic Meningococcal ACWY Vaccine Aged Out N o longer eligible based on patient's age to complete this topic Pneumococcal Vaccine: Pediatrics (0 to 5 Years) and At-Risk Patients (6 to 64 Years) Aged Out No longer eligible based on patient's age to complete this topic RSV Immunization Patients Under 20 months Aged Out No longer eligible based on patient's age to complete this topic Varicella Vaccines Aged Out No longer eligible based on patient's age to complete this topic Medical Devices Implanted Type Area Analytic Manager Device Identifier Shelf Expiration Date Model / Serial / Lot Surgiflo Hemostatic Matrix [facility] [id number] Implanted:Qty : 2 on 08/09/2021 by Andrea Polanco DO Implants N/A: Spine Cervical [facility] [employer] 11/04/2022 [id number] / / [id number] Size 5 Standard Tapered Stem Cementless Implanted:Qty : 1 on 12/29/2022 by Clifton Esteban MD Joints Right: Hip [id number] 10/01/2027 / / [id number] +4 Femoral Head Implanted:Qty : 1 on 12/29/2022 by Clifton Esteban MD Joints Right: Hip [id number] 07/04/2026 / / [id number] Description:Renata 36mm +4mm Spacer Vikos 14.5x11.5x8mm 7d Stry-Spin [id number] 29474 - [id number] Implanted:Qty : 1 on 08/09/2021 by Andrea Polanco DO N/A: Spine Cervical [employer] 06/12/2025 2504-214 08L / [id number] / Spacer Vikos 14.5x11.5x7mm 7d Stry-Spin [id number]-2 44372 - [id number] Implanted:Qty : 1 on 08/09/2021 by Andrea Polanco DO N/A: Spine Cervical [employer] 10/24/2025 2504-214 07L / [id number] / Spacer Vikos 14.5x11.5x7mm 7d Stry-Spin [id number] 78149 - [id number] Implanted:Qty : 1 on 08/09/2021 by Karim, Andrea O, DO N/A: Spine Cervical [employer] 08/02/2025 2504-214 07L / [id number] / Plate [place] 57mm 3 Level Bone Stry-K2m [id number] Implanted:Qty : 1 on 08/09/2021 by Andrea Polanco DO N/A: Spine Cervical [employer] [id number] 57V / / Screw [place] Self-Start 4x16mm Stry-K2m [id number]- [id number] Implanted:Qty : 7 on 08/09/2021 by Andrea Polanco DO N/A: Spine Cervical [employer] 8801-040 16DA / / Screw [place] 16mm 4.5mm Self St Stry-Howm [id number]- [id number] Implanted:Qty : 1 on 08/09/2021 by Andrea Polanco DO N/A: Spine Cervical [employer] 8801-045 16DA / / Screw Marie 6.5x20mm Crng-Manu [id number] 6 Implanted:Qty : 1 on 12/29/2022 by Clifton Esteban MD Right: Hip [employer] [id number] 10/02/2027 321.02 0 [id number] Marie Liner Ecima Neutral Offset Implanted:Qty : 1 on 12/29/2022 by Clifton Esteban MD Right: Hip [employer] 10/29/2027 322.03.6 36 / / [id number] Hip Cup Marie Tpr 52mm Sz3 Crng-Manu [id number] 6960 Implanted:Qty : 1 on 12/29/2022 by Clifton Esteban MD Right: Hip [employer] [id number] 10/13/2027 321.03 .3 52 / [id number] Screw Marie 6.5x25mm Crng-Manu [id number] 7 Implanted:Qty : 1 on 12/29/2022 by Clifton Esteban MD Right: Hip [employer] [id number] 09/02/2027 321.02 5 [id number] Procedures Procedure Name Priority Date/Time Associated Diagnosis Comments CT ABDOMEN PELVIS W CONTRAST Routine 09/19/2024 2:05 PM EST Weight loss, non-intentional Right-sided abdominal pain of unknown cause BASIC METABOLIC PANEL Routine 09/15/2024 9:58 AM EST Weight loss, non-intentional Right-sided abdominal pain of unknown cause US ABDOMEN LIMITED Routine 09/08/2024 8: 26 AM EST Right-sided abdominal pain of unknown cause Early satiety CBC WITH AUTO DIFFERENTIAL Routine 08/12/2024 7:54 AM EST Early satiety VITAMIN D 25 HYDROXY Routine 08/12/2024 7:54 AM EST Vitamin D deficiency VITAMIN B12 Routine 08/12/2024 7:54 AM EST History of non anemic vitamin B12 deficiency HIV 1, 2 ANTIBODY, P24 ANTIGEN WITH REFLEX TO DIFFERENTIATION Routine 08/12/2024 7:54 AM EST Encounter for screening for HIV LIPID PANEL WITH REFLEX TO DIRECT LDL Routine 08/12/2024 7:54 AM EST Other hyperlipidemia CBC AND DIFFERENTIAL Routine 08/12/2024 7:54 AM EST Early satiety LIPASE Routine 08/12/2024 7:54 AM EST Right-sided abdominal pain of unknown cause Early satiety COMPREHENSIVE METABOLIC PANEL Routine 08/12/2024 7:54 AM EST Right-sided abdominal pain of unknown cause Early satiety GLIADIN ANTIBODIES, SERUM Routine 07/18/2024 2:44 PM EST Acute diarrhea TISSUE TRANSGLUTAMINASE, IGA Routine 07/18/2024 2:44 PM EST Acute diarrhea ENDOMYSIAL ANTIBODY, IGA Routine 07/18/2024 2:44 PM EST Acute diarrhea SCREENING MAMMOGRAPHY BI 2-VIEW BREAST INC CAD Routine 03/14/2024 1:25 PM EDT Encounter for screening mammogram for malignant neoplasm of breast HEPATITIS C SCREENING Routine 12/24/2023 COLONOSCOPY Routine 03/18/2021 from Last 3 Months or Most Recently Relevant to Health Maintenance Results * CT Abdomen Pelvis w Contrast (09/19/2024 2:05 PM EST) Anatomical Region Laterality Modality Body Computed Tomogra phy 09/27/2024 9:42 AM EST Impressions 09/27/2024 9:48 AM EST Impression: No significant abnormality identified in the abdomen and pelvis. Tagood[employer] DAVION ([id number]) -------- FINAL REPORT -------- Dictated By: Paula Cedeño Dictated Date: 09/27/2024 09:42 ET Assigned Physician: Paula Cedeño Reviewed and Electronically Signed By: Paula Cedeño Signed Date: 09/27/2024 09:48 ET Workstation ID: [id number] Transcribed By: Self Edit Transcribed Date: 09/27/2024 09:42 ET Narrative 09/27/2024 9:48 AM EST History: Right-sided abdominal pain, nausea, early satiety and unintentional weight loss. Comparison: Right upper quadrant ultrasound 09/08/24, thoracic CTA 08/26/21 Technique: Helical volumetric imaging of the abdomen and pelvis was performed following oral contrast and during the uneventful intravenous administration of 90 cc Isovue-370. DLP: 1097.10 mGy/cm [employer] VCT Iterative reconstruction technique Findings: The liver is normal in size and configuration. A 6 mm circumscribed round hypoattenuating lesion in the medial segment left lobe (image 45 series 3) is unchanged from 202, considered benign, most likely a cyst. The portal and hepatic veins are patent. The gallbladder is physiologically distended. No evidence of biliary obstruction is seen. The spleen is top normal in size, approximately 13 cm in maximum diameter, unchanged from 202. The pancreas and adrenal glands are unremarkable. The kidneys are normal in position and size, with symmetric, intact nephrograms and no evidence of hydronephrosis or mass. Moderate mural calcification of the abdominal aorta is seen. There is no aneurysm. No ascites or lymphadenopathy is seen. Artifact arising from bilateral total hip prostheses obscures the lower pelvis. No evidence of bowel obstruction is identified. Appendectomy sequelae are noted. No abnormal perienteric or pericolonic fat stranding is seen. Lumbar decompression and fusion sequelae are noted. Discectomies are noted at L3-4 and L4-5, with disc implants in place. The bilateral total hip prostheses are partially imaged. Procedure Note Paula Cedeño MD - 09/27/2024 History: Right-sided abdominal pain, nausea, early satiety andunintentional weight loss. Comparison: Right upper quadrant ultrasound 09/08/24, thoracic CTA08/26/21 Technique: Helical volumetric imaging of the abdomen and pelvis wasperformed following oral contrast and during the uneventful intravenousadministration of 90 cc Isovue-370. DLP: 1097.10 mGy/cm [employer] VCT Iterative reconstruction technique Findings: The liver is normal in size and configuration. A 6 mm circumscribed roundhypoattenuating lesion in the medial segment left lobe (image 45 series 3)is unchanged from 2020, considered benign, most likely a cyst. The [place] hepatic veins are patent. The gallbladder is physiologicallydistended. No evidence of biliary obstruction is seen. The spleen is top normal in size, approximately 13 cm in maximum diameter,unchanged from 202. The pancreas and adrenal glands are unremarkable. The kidneys are normal in position and size, with symmetric, intactnephrograms and no evidence of hydronephrosis or mass. Moderate mural calcification of the abdominal aorta is seen. There is noaneurysm. No ascites or lymphadenopathy is seen. Artifact arising frombilateral total hip prostheses obscures the lower pelvis. No evidence of bowel obstruction is identified. Appendectomy sequelae arenoted. No abnormal perienteric or pericolonic fat stranding is seen. Lumbar decompression and fusion sequelae are noted. Discectomies are notedat L3- 4 and L4-5, with disc implants in place. The bilateral total hipprostheses are partially imaged. IMPRESSION: Impression: No significant abnormality identified in the abdomen and pelvis. Telerad PA ([id number]) -------- FINAL REPORT -------- Dictated By: Paula Cedeño Dictated Date: 09/27/2024 09:42 ET Assigned Physician: Paula Cedeño Reviewed and Electronically Signed By: Paula Cedeño Signed Date: 09/27/2024 09:48 ET Workstation ID: [id number] Transcribed By: Self Edit Transcribed Date: 09/27/2024 09:42 ET Jaycee RICARDO IMG CT PROCEDURES * Basic metabolic panel (09/15/2024 9:58 AM EST) Sodium 136 133 - 145 mmol/L LAB CHEMISTRY METHOD 09/15/2024 12:40 PM [facility] Potassium 4.1 3.5 - 5.5 mmol/L LAB CHEMISTRY METHOD 09/15/2024 12:40 PM [facility] Chloride 102 96 - 110 mmol/L LAB CHEMISTRY METHOD 09/15/2024 12:40 PM [facility] CO2 27 21 - 32 mmol/L LAB CHEMISTRY METHOD 09/15/2024 12:40 PM [facility] Anion Gap 7 3 - 11 LAB CHEMISTRY METHOD 09/15/2024 12:40 PM [facility] Glucose 91 70 - 100 mg/dL LAB CHEMISTRY METHOD 09/15/2024 12:40 PM [facility] BUN 14 5 - 25 mg/dL LAB CHEMISTRY METHOD 09/15/2024 12:40 PM [facility] Creatinine 0.90 0.50 - 1.10 mg/dL LAB CHEMISTRY METHOD 09/15/2024 12:40 PM [facility] eGFR 74 >=60 mL/min/1. 73m2 LAB CHEMISTRY METHOD 09/15/2024 12:40 PM [facility] Comment:Calculation based on the??Chronic Kidney Disease Epidemiology Collaboration (CKD-EPI) equation refit??without adjustment for race. BUN/Creatinine Ratio 15.6 LAB CHEMISTRY METHOD 09/15/2024 12:40 PM [facility] Calcium 9.9 8.5 - 10.5 mg/dL LAB CHEMISTRY METHOD 09/15/2024 12:40 PM EST [facility] Blood Venous blood specimen / Unknown Venipuncture / Unknown 09/15/2024 9:58 AM EST 09/15/2024 10:35 AM EST Jaycee RICARDO LAB BLOOD ORDERABLES [facility] [address] [place] [address], [place] [phone] * US Abdomen Limited (09/08/2024 8:26 AM EST) Anatomical Region Laterality Modality Body Ultrasound 09/13/2024 11:3 1 AM EST Impressions 09/13/2024 11:33 AM EST No etiology for right upper quadrant pain demonstrated. Specifically no cholelithiasis or biliary dilation -------- FINAL REPORT -------- Dictated By: Krishan Blue Dictated Date: 09/13/2024 11:31 ET Assigned Physician: Krishan Blue Reviewed and Electronically Signed By: Krishan Blue Signed Date: 09/13/2024 11:33 ET Workstation ID: [id number] Transcribed By: Self Edit Transcribed Date: 09/13/2024 11:31 ET Narrative 09/13/2024 11:33 AM EST EXAMINATION: ABDOMEN ULTRASOUND, LIMITED CLINICAL INFORMATION: Right upper quadrant pain symptoms radiating to right lower quadrant COMPARISON: None. TECHNIQUE: Ultrasound of the right upper quadrant FINDINGS: QUALITY: Bowel obscures some of the pancreas PANCREAS: No suspicious abnormality of the pancreatic neck or body. Some of the pancreatic head and tail were obscured. ABDOMINAL AORTA/IVC: No abdominal aortic aneurysm demonstrated. No definite abnormality in the visualized portions of the IVC. LIVER: The right lobe of the liver measures 15.6 cm. The background hepatic echotexture is slightly coarsened. The portal tracts are visualized. The liver contour appears smooth. No intrahepatic biliary dilation. No suspicious focal liver lesion. BILIARY: The gallbladder is fluid-filled. No cholelithiasis, gallbladder wall thickening, pericholecystic fluid or biliary dilation. COMMON BILE DUCT: The common duct measures 0.5 cm which is within normal limits. GALLBLADDER TENDERNESS: There is no reported tenderness to transducer pressure over the gallbladder. KIDNEYS: Right renal length: ??9.8 cm in greatest length Left renal length: ??Not examined. There is no dilation of the intrarenal collecting system in the right kidney. There is no suspicious focal lesion demonstrated in the right kidney. There is no shadowing calculus demonstrated ??in the right kidney. FLUID: No intraperitoneal fluid demonstrated in the upper abdomen Procedure Note Krishan Blue MD - 09/13/2024 EXAMINATION: ABDOMEN ULTRASOUND, LIMITED CLINICAL INFORMATION: Right upper quadrant pain symptoms radiating to right lower quadrant COMPARISON: None. TECHNIQUE: Ultrasound of the right upper quadrant FINDINGS: QUALITY: Bowel obscures some of the pancreas PANCREAS: No suspicious abnormality of the pancreatic neck or body. Someof the pancreatic head and tail were obscured. ABDOMINAL AORTA/IVC: No abdominal aortic aneurysm demonstrated. Nodefinite abnormality in the visualized portions of the IVC. LIVER: The right lobe of the liver measures 15.6 cm. The backgroundhepatic echotexture is slightly coarsened. The portal tracts arevisualized. The liver contour appears smooth. No intrahepatic biliarydilation. No suspicious focal liver lesion. BILIARY: The gallbladder is fluid-filled. No cholelithiasis, gallbladderwall thickening, pericholecystic fluid or biliary dilation. COMMON BILE DUCT: The common duct measures 0.5 cm which is within normallimits. GALLBLADDER TENDERNESS: There is no reported tenderness to transducerpressure over the gallbladder. KIDNEYS: Right renal length: 9.8 cm in greatest length Left renal length: Not examined. There is no dilation of the intrarenal collecting system in the rightkidney. There is no suspicious focal lesion demonstrated in the right kidney. There is no shadowing calculus demonstrated in the right kidney. FLUID: No intraperitoneal fluid demonstrated in the upper abdomen IMPRESSION: No etiology for right upper quadrant pain demonstrated. Specifically no cholelithiasis or biliary dilation -------- FINAL REPORT -------- Dictated By: Krishan Blue Dictated Date: 09/13/2024 11:31 ET Assigned Physician: Mirza, Krishan F Reviewed and Electronically Signed By: Krishan Blue Signed Date: 09/13/2024 11:33 ET Workstation ID: [id number] Transcribed By: Self Edit Transcribed Date: 09/13/2024 11:31 ET Jaycee RICARDO IMG US PROCEDURES * HIV 1,2 antibody, p24 antigen with reflex to differentiation (08/12/2024 7:54 AM EST) HIV Combo AB/AG Negative Negative LAB CHEMISTRY METHOD 08/12/2024 10:52 AM EST [facility] Blood Venous blood specimen / Unknown Venipuncture / Unknown 08/12/2024 7:54 AM EST 08/12/2024 7:54 AM EST Narrative [facility] - 08/12/2024 10:52 AM EST This assay is a 4th generation assay allowing for earlier detection of HIV infection by detecting the presence of the HIV-1 p24 antigen as well as the traditional antibodies to HIV type 1 (including group O) and type 2. ??Use of a 4th generation assay is the current CDC recommendation for HIV screening. Floyd Romero MD LAB BLOOD ORDE CARLI [facility] Organization Address City/State/ZIP Co de Phone Number [facility] [address] [place] [address], * Lipid panel with reflex to direct LDL (08/12/2024 7:54 AM EST) Cholesterol 175 0 - 200 mg/dL LAB CHEMISTRY METHOD 08/12/2024 11:01 AM EST [facility] Triglycerides 90 0 - 150 mg/dL LAB CHEMISTRY METHOD 08/12/2024 11:01 AM [facility] HDL 94 >=40 mg/dL LAB CHEMISTRY METHOD 08/12/2024 11:01 AM [facility] LDL Calculated 63 0 - 100 mg/dL LAB CHEMISTRY METHOD 08/12/2024 11:01 AM [facility] VLDL Cholesterol Jai 18 mg/dL LAB CHEMISTRY METHOD 08/12/2024 11:01 AM EST [facility] Non HDL Chol. (LDL+VLDL) 81 <145 mg/dL LAB CHEMISTRY METHOD 08/12/2024 11:01 AM [facility] Chol/HDL Ratio 1.9 0.0 - 4.4 LAB CHEMISTRY METHOD 08/12/2024 11:01 AM [facility] Blood Venous blood specimen / Unknown Venipuncture / Unknown 08/12/2024 7:54 AM EST 08/12/2024 7:54 AM EST Floyd Romero MD LAB BLOOD ORDE CARLI [facility] [address] [place] [address], * CBC auto differential (08/12/2024 7:54 AM EST) WBC 4.8 4.8 - 10.8 K/mcL LAB HEMETOLOGY METHOD 08/12/2024 10:13 AM [facility] RBC 4.50 3.80 - 4.80 M/mcL LAB HEMETOLOGY METHOD 08/12/2024 10:13 AM [facility] Hemoglobin 13.0 11.5 - 16.0 g/dL LAB HEMETOLOGY METHOD 08/12/2024 10:13 AM [facility] Hematocrit 39.6 35.0 - 47.0 % LAB HEMETOLOGY METHOD 08/12/2024 10:13 AM [facility] MCV 87.6 79.0 - 98.0 FL LAB HEMETOLOGY METHOD 08/12/2024 10:13 AM [facility] MCH 28.8 27.0 - 32.0 pcg LAB HEMETOLOGY METHOD 08/12/2024 10:13 AM [facility] MCHC 32.8 32.0 - 37.0 g/dL LAB HEMETOLOGY METHOD 08/12/2024 10:13 AM [facility] RDW 13.3 11.0 - 15.0 % LAB HEMETOLOGY METHOD 08/12/2024 10:13 AM [facility] Platelets 214 130 - 400 K/mcL LAB HEMETOLOGY METHOD 08/12/2024 10:13 AM [facility] MPV 9.5 7.0 - 11.0 FL LAB HEMETOLOGY METHOD 08/12/2024 10:13 AM [facility] NRBC 0.0 <1.0 % LAB HEMETOLOGY METHOD 08/12/2024 10:13 AM [facility] NRBC Absolute 0.00 <0.10 K/mcL LAB HEMETOLOGY METHOD 08/12/2024 10:13 AM [facility] Neutrophils Relative 51.4 % LAB HEMETOLOGY METHOD 08/12/2024 10:13 AM [facility] Lymphocytes Relative 37.1 % LAB HEMETOLOGY METHOD 08/12/2024 10:13 AM [facility] Monocytes Relative 8.8 % LAB HEMETOLOGY METHOD 08/12/2024 10:13 AM [facility] Eosinophils Relative 1.9 % LAB HEMETOLOGY METHOD 08/12/2024 10:13 AM [facility] Basophils Relative 0.6 % LAB HEMETOLOGY METHOD 08/12/2024 10:13 AM [facility] Immature Granulocytes Relative 0.2 % LAB HEMETOLOGY METHOD 08/12/2024 10:13 AM [facility] Neutrophils Absolute 2.45 1.50 - 7.00 K/mcL LAB HEMETOLOGY METHOD 08/12/2024 10:13 AM [facility] Lymphocytes Absolute 1.77 1.00 - 5.00 K/mcL LAB HEMETOLOGY METHOD 08/12/2024 10:13 AM EST [facility] Monocytes Absolute 0.42 0.20 - 1.00 K/mcL LAB HEMETOLOGY METHOD 08/12/2024 10:13 AM [facility] Eosinophils Absolute 0.09 0.00 - 0.50 K/mcL LAB HEMETOLOGY METHOD 08/12/2024 10:13 AM EST [facility] Basophils Absolute 0.03 0.00 - 0.20 K/mcL LAB HEMETOLOGY METHOD 08/12/2024 10:13 AM EST [facility] Immature Granulocytes Absolute 0.01 0.00 - 0.03 K/[facility] LAB HEMETOLOGY METHOD 08/12/2024 10:13 AM [facility] Blood Venous blood specimen / Unknown Venipuncture / Unknown 08/12/2024 7:54 AM EST 08/12/2024 7:54 AM EST Jaycee RICARDO LAB BLOOD ORDERABLES Performing Organization Address City/[facility]/ZIP Co de Phone Number [facility] [address] [place] [address], [place] [phone] * Vitamin D 25 hydroxy (08/12/2024 7:54 AM EST) Vit D, 25-Hydroxy 37.7 30.0 - 80.0 ng/mL LAB CHEMISTRY METHOD 08/12/2024 10:12 AM EST [facility] Blood Venous blood specimen / Unknown Venipuncture / Unknown 08/12/2024 7:54 AM EST 08/12/2024 7:54 AM EST Floyd Romero MD LAB BLOOD ORDE RABLES [facility] [address] [place] [address], [place] [phone] * Lipase (08/12/2024 7:54 AM EST) Pathologist [facility] Lipase 24 13 - 75 unit/L LAB CHEMISTRY METHOD 08/12/2024 10:04 AM EST [facility] Blood Venous blood specimen / Unknown Venipuncture / Unknown 08/12/2024 7:54 AM EST 08/12/2024 7:54 AM EST Jaycee RICARDO LAB BLOOD ORDERABLES [facility] [address] [place] [address], [place] [phone] * (ABNORMAL) Vitamin B12 (08/12/2024 7:54 AM EST) [facility] Vitamin B-12 1,234(H) 250 - 900 pcg/mL LAB CHEMISTRY METHOD 08/12/2024 10:30 AM EST [facility] Blood Venous blood specimen / Unknown Venipuncture / Unknown 08/12/2024 7:54 AM EST 08/12/2024 7:54 AM EST Floyd Romero MD LAB BLOOD ORDE RABLES [facility] [address] [place] [address], [place] [phone] * Comprehensive metabolic panel (08/12/2024 7:54 AM EST) [facility] Sodium 143 133 - 145 mmol/L LAB CHEMISTRY METHOD 08/12/2024 10:30 AM EST [facility] Potassium 4.3 3.5 - 5.5 mmol/L LAB CHEMISTRY METHOD 08/12/2024 10:30 AM EST [facility] Chloride 109 96 - 110 mmol/L LAB CHEMISTRY METHOD 08/12/2024 10:30 AM EST [facility] CO2 28 21 - 32 mmol/L LAB CHEMISTRY METHOD 08/12/2024 10:30 AM [facility] Anion Gap 6 3 - 11 LAB CHEMISTRY METHOD 08/12/2024 10:30 AM [facility] Glucose 98 70 - 100 mg/dL LAB CHEMISTRY METHOD 08/12/2024 10:30 AM [facility] BUN 7 5 - 25 mg/dL LAB CHEMISTRY METHOD 08/12/2024 10:30 AM [facility] Creatinine 0.93 0.50 - 1.10 mg/dL LAB CHEMISTRY METHOD 08/12/2024 10:30 AM [facility] eGFR 71 >=60 mL/min/1. 73m2 LAB CHEMISTRY METHOD 08/12/2024 10:30 AM [facility] Comment:Calculation based on the??Chronic Kidney Disease Epidemiology Collaboration (CKD-EPI) equation refit??without adjustment for race. BUN/Creatinine Ratio 7.5 LAB CHEMISTRY METHOD 08/12/2024 10:30 AM [facility] Calcium 9.8 8.5 - 10.5 mg/dL LAB CHEMISTRY METHOD 08/12/2024 10:30 AM [facility] AST (SGOT) 15 10 - 42 unit/L LAB CHEMISTRY METHOD 08/12/2024 10:30 AM [facility] ALT (SGPT) 14 10 - 60 unit/L LAB CHEMISTRY METHOD 08/12/2024 10:30 AM [facility] Alkaline Phosphatase 120 42 - 121 unit/L LAB CHEMISTRY METHOD 08/12/2024 10:30 AM [facility] Total Protein 7.0 6.0 - 8.0 g/dL LAB CHEMISTRY METHOD 08/12/2024 10:30 AM [facility] Albumin 4.3 3.2 - 5.0 g/dL LAB CHEMISTRY METHOD 08/12/2024 10:30 AM [facility] Total Bilirubin 0.6 0.0 - 1.4 mg/dL LAB CHEMISTRY METHOD 08/12/2024 10:30 AM EST [facility] Blood Venous blood specimen / Unknown Venipuncture / Unknown 08/12/2024 7:54 AM EST 08/12/2024 7:54 AM EST Jaycee RICARDO LAB BLOOD ORDERABLES Performing Organization Address [facility]/ZIP Co de Phone Number [facility] [address] [place] [address], * Endomysial antibody, IgA (07/18/2024 2:44 PM EST) Endomysial IgA Negative Negative 07/21/2024 1:46 PM EST [facility] Blood Venous blood specimen / Unknown Venipuncture / Unknown 07/18/2024 2:44 PM EST 07/18/2024 2:44 PM EST Jorge Sebastian MD LAB BLOOD ORDERABLES Performing Organization Address City/[facility]/ZIP Co de Phone Number [facility] [address] [place] [address], * Gliadin antibodies, serum (07/18/2024 2:44 PM EST) Gliadin IgA 3 <20 units LAB CHEMISTRY METHOD 07/20/2024 12:10 PM EST [facility] Gliadin IgG 2 <20 units LAB CHEMISTRY METHOD 07/20/2024 12:10 PM EST [facility] Gliadin IgA Antibody Negative Negative LAB CHEMISTRY METHOD 07/20/2024 12:10 PM EST [facility] Gliadin IgG Antibody Negative Negative LAB CHEMISTRY METHOD 07/20/2024 12:10 PM EST [facility] Blood Venous blood specimen / Unknown Venipuncture / Unknown 07/18/2024 2:44 PM EST 07/18/2024 2:44 PM EST Jorge Sebastian MD LAB BLOOD ORDERABLES Performing Organization Address [facility] Co de Phone Number [facility] [address] [place] [address], * Tissue transglutaminase, IgA (07/18/2024 2:44 PM EST) Tissue Transglutaminase Ab, IgA Quant 1 <4 unit/mL LAB CHEMISTRY METHOD 07/20/2024 12:09 PM EST [facility] Tissue Transglutaminase Ab, IgA Negative Negative LAB CHEMISTRY METHOD 07/20/2024 12:09 PM EST [facility] Blood Venous blood specimen / Unknown Venipuncture / Unknown 07/18/2024 2:44 PM EST 07/18/2024 2:44 PM EST Jorge Sebastian MD LAB BLOOD ORDERABLES Performing Organization Address [facility] Co de Phone Number [facility] [address] [place] [address], * SCREENING MAMMOGRAPHY BI 2-VIEW BREAST INC CAD (03/14/2024 1:25 PM EDT) Anatomical Region Laterality Modality Radiographic Kathy ging 12/24/2023 8:32 AM EDT Narrative 03/15/2024 9:12 AM EDT This is a summary report. The complete report is available in the patient's medical record. If you cannot access the medical record, please contact the sending organization for a detailed fax or copy. Study: SCREENING MAMMOGRAPHY BI 2-VIEW BREAST INC CAD Technique: Bilateral full-field digital screening mammography is obtained and read in conjunction with computer aided detection. ??Tomosynthesis as well as 2D C-View imaging were obtained. Comparison: Comparison made to multiple priors, most recent June 24, 2023, and most remote July 29, 2019. Breast composition: There are scattered areas of fibroglandular density. Bilateral breasts: No significant masses, suspicious calcifications or other abnormalities are seen in either breast. IMPRESSION: Impression: Bilateral breasts: Negative, no specific mammographic evidence of malignancy. ??Normal interval follow-up is recommended in 12 months. BI-RADS: Category 1: Negative Procedure Note Olegario Orosco MD - 06/22/2024 This is a summary report. The complete report is available in thepatient's medical record. If you cannot access the medical record, pleasecontact the sending organization for a detailed fax or copy. Study: SCREENING MAMMOGRAPHY BI 2-VIEW BREAST INC CAD Technique: Bilateral full-field digital screening mammography is obtainedand read in conjunction with computer aided detection. Tomosynthesis aswell as 2D C-View imaging were obtained. Comparison: Comparison made to multiple priors, most recent June, and most remote July 29, 2019. Breast composition: There are scattered areas of fibroglandular density. Bilateral breasts: No significant masses, suspicious calcifications orother abnormalities are seen in either breast. IMPRESSION: Impression: Bilateral breasts: Negative, no specific mammographic evidence ofmalignancy. Normal interval follow-up is recommended in 12 months. BI-RADS: Category 1: Negative Suyapa Parveen RICARDO IMG XR PROCEDURES * Hepatitis C Screening (12/24/2023) Hepatitis C Screening abstracted Historical Provider MD MARIAN Mcmahan * Colonoscopy (03/18/2021) Colonoscopy no interpretation , abstracted Anatomical Region Laterality Modality Other Historical Provider MD MARIAN Mcmahan from Last 3 Months or Most Recently Relevant to Health Maintenance Care Teams Well Tender Relationship Specialty Start Date End Date Floyd Romero MD [address] [place] [address] PCP - General 09/23/23
--- OUTSIDE RECORDS SUMMARY | 2024-10-10 14:54 | XMS_ITS | Data Portability ---
Author Organization [place] [facility] Carole Bee AONE [place] Address [address] [place] [address] Care Team Providers Care Generator Rebuilder Name Role Phone EDI LEONARD Referring Provider [phone] EDI LEONARD Primary Care Provider [phone] Assessment Encounter Date Assessment Date Assessment LastModified by Organization Details LastModified Time 03/27/2023 03/27/2023 HPI : ? Patient is here for about 3-month follow-up from her right total hip replacement performed in December 2022. This was complicated by a hip dislocation requiring closed reduction. Overall she is making improvements. She has not had any dislocation issues. She does have some numbness along the distal thigh that is slowly improving. She does have some aching that continues to improve. She does have some mild quadriceps pain. She does report some discomfort from her left total hip replacement as well. Physical Exam : Patient is well nourished, well-developed, in no acute distress, with appropriate mood and affect. The patient is oriented to time, place, and person. Respirations are even and unlabored. There is no inguinal adenopathy. Examination of the contralateral hip shows normal range of motion, strength, no tenderness, and well-healed skin incision. The operative limb is well-perfused, with well healed skin incision. The patient demonstrates good hip motion, stability, and strength. There is no pain with ROM Muscle strength is normal. Pedal pulses are palpable. Assessment/Plan : Patient is functioning appropriately approximately 3 months from right total hip replacement, which was complicated by dislocation requiring closed reduction. I think she is recovering appropriately. She continues to get improvements. Her discomfort can continues to improve. I think she will continue get improvement throughout 1 year from surgery. Recommend to continue anterior hip precautions for now. Recommend to continue hip conditioning exercises. We will have her follow-up at 1 year from surgery with repeat x-rays of the right hip at that time. Not available 03/27/2023 10:18:12 12/04/2023 12/04/2023 HPI : ? Patient is here for almost 1 year follow-up for her right total hip replacement. She comes in with complaints today. Her complaints are pain radiating down the entire right lower extremity. Her complaints are of stiffness. She feels imbalance. She states she feels nervous about both hips. Her symptoms are the same in both hips, she has not had a dislocation on the left hip. She has not had any dislocations since the one that was closed reduced on February 11. She is scheduled for cervical spine surgery. She has a history of lumbar spine surgery. She states that she feels that all her symptoms are related to having the dislocation. She Physical Exam : Patient is well nourished, well-developed, in no acute distress, with appropriate mood and affect. The patient is oriented to time, place, and person. Respirations are even and unlabored. There is no inguinal adenopathy. The operative right limb is well-perfused, with well healed skin incision. The patient demonstrates good hip motion, stability, and strength. There is no subluxation with range of motion. Pedal pulses are palpable. The operative left limb is well-perfused, with well healed skin incision. The patient demonstrates good hip motion, stability, and strength. There is no subluxation with range of motion. Pedal pulses are palpable. Assessment/Plan : Patient is almost 1 year from right total hip replacement with , and 7 years from left total hip replacement Dr. Adame. The right hip was complicated by 1 dislocation at about 6 weeks which was closed reduced in the operating room. She has not had recurrent dislocations. Preoperatively we had discussed that she was at high risk for dislocation given her lumbar fusions. Her symptoms at this time are radiating pain down the entire right lower extremity. She has bilateral symptoms of discomfort around the hip. She feels imbalanced. She states that she feels all this are related to having her dislocation. I discussed with her that I am not sure of the mechanism that would cause the symptoms from the hip dislocation. Her symptoms seems more consistent with spine pathology, and she has a history of spine issues including history of lumbar fusion as well as current cervical spine symptoms. My strong recommendation is for her to get the spine further evaluated. She is frustrated with this. I recommended that she has continued follow-up with me. Her preference is not to see me. I did recommend that she can see another hip replacement surgery for a second opinion. She is not interested in this either. I recommended a 1 year follow-up, but I am not sure that she is going to make this appointment. She should follow-up with a hip replacement surgeon long-term. Not available 12/04/2023 09:25:24 12/22/2023 12/22/2023 HPI : Patient is here for follow-up for her right hip pain following right total hip replacement. She wanted to come in again to discuss symptoms. I had considered getting additional x-rays. Upon further discussion with patient, she states she is feeling a muscular pain in the groin area and it can be laterally. This is pain when getting up from the seated position. Physical Exam : Patient is well nourished, well- developed, in no acute distress, with appropriate mood and affect. The patient is AAOx3. Gait is normal today. Patient shows pain with resisted hip flexion on the right side. Assessment/Plan : Patient is about 1 year from right total hip replacement, complicated by dislocation. We discussed that there were not hip replacement related issues on prior radiographs. Given her persistent pain in the area, we discussed further workup. We discussed that pain radiating down the legs to the foot and calf would not be related to her hip, but there can be muscular pain around the hip joint. We are going to get an MRI, metal artifact reduction protocol of the right hip to look at the soft tissues around the hip replacement. We can also revisualize component position. She is going to come in after the MRI for discussion and treatment plan. She is aware this may be physical therapy related program. Not available 12/22/2023 13:40:40 01/08/2024 01/08/2024 HPI : Patient is here for follow-up for her right hip pain following right total hip replacement. At last visit we ordered an MRI of her right hip. This was performed on December 31. MRI demonstrated mild greater trochanter bursitis, gluteal medius and minimus tendinosis, and hamstring tendinosis. There is also a small to moderate joint effusion with some mild marrow edema in the posterior acetabulum. Her symptoms are the same there is some lateral symptoms as well as some mild groin symptoms. She does note fatigue bilaterally especially if she does not get enough rest. Physical Exam : Patient is well nourished, well- developed, in no acute distress, with appropriate mood and affect. The patient is AAOx3. She walks in today without an assistive device. Assessment/Plan : Patient is over 1 year from right total hip replacement with some persistent symptoms. We went through her MRI in detail. I also reviewed it myself, including to note implant position which showed appropriate version and inclination. We discussed that overall I do not think that there are any red flags based on the MRI. This can be within the realm of normal following a total hip replacement. There are no severe muscular injuries. There is no signs of implant related issues. We will rule out periprosthetic joint infection with inflammatory labs. If this is positive we will would consider a aspiration. If infection workup was negative, we discussed physical therapy, as well as an oral steroid taper. She is undergoing cervical spine surgery next week, so we are going to hold off on oral steroid taper. Once she recovers from this we can consider it. Not available 01/08/2024 15:35:50 04/12/2024 04/12/2024 HPI : Patient is here for follow-up for her bilateral hip replacements. I had last seen her in January. We have done extensive workup including ESR and CRP, MRI, and radiographs. We did not note any significant implant related issues. She was scheduled to get cervical spine surgery, so we are holding off on oral steroid. She does note that her spine doctor says that she has lumbar spine issues that may be a contributor to her lower extremity symptoms. Physical Exam : Patient is well nourished, well-developed, in no acute distress, with appropriate mood and affect. The patient is oriented to time, place, and person. Respirations are even and unlabored. There is no inguinal adenopathy. The operative left limb is well-perfused, with well healed skin incision. The patient demonstrates good hip motion, stability, and strength. There is no pain with ROM Muscle strength is normal. Pedal pulses are palpable. The operative right limb is well-perfused, with well healed skin incision. The patient demonstrates good hip motion, stability, and strength. There is no pain with ROM Muscle strength is normal. Pedal pulses are palpable. Assessment/Plan : Patient has some bilateral hip pain and lower extremity pain in the setting of lumbar spine issues, as well as in the setting of bilateral total hip replacements. Extensive workup for the bilateral hips has showed no implant related issues. She may have some muscular related symptoms next to the hip replacements, as well as a strong possibility of lumbar etiology for this. She will continue follow-up with her spine surgeon. I am going to prescribe her an oral steroid today. We discussed risks and benefits of this. This will be a steroid taper. She will follow-up with me in 6 months with repeat x-rays of the right hip at that time. Not available 04/12/2024 13:50:15 Plan of Treatment Reminders Order Date Submit Date Provider Last Modified By Organization Details Last Modified Time Details Appointments None recorded. Lab ESR (erythrocyt e sedimentati on rate), blood - Joint pain status post arthroplast y, evaluate for joint infection 2023 024 [email or web address] Not available 13:52:12 C-reactive protein, quantitativ e, serum or plasma - Joint pain status post arthroplast y, evaluate for joint infection 2023 024 [email or web address] Not available 16:32:41 Referral None recorded. Procedures None recorded. Surgeries None recorded. Imaging XR, hip, unilateral, 2 or 3 view 2022 023 [email or web address] [facility], [address], [address], [place], [address], 3 12:15:14 XR, hip, unilateral, 2 or 3 view 2023 024 [facility], [address], [address], [place], [address], 4 10:00:11 MRI, hip, w/o contrast - R total hip replacement , pain, Metal artifact reduction protocolP lease call patient to schedule and hand carry CD 2023 024 [facility] , [address], [address], [place], [address], 08:00:28 Medication Orders prednisone 10 mg tablet 2023 024 [id number], [address] , [place], [address], 13:46:49 Patient TargetsNo targets recorded. Patient Instructions Encounter Date Encounter Id Patient Instructions Last Modified By Organization Details Last Modified Time 03/27/2023 AP pelvis, AP an d lateral radiographs of the right hip taken today demonstrate a right total hip replacement with components in appropriate position without any signs of hardware related complication Not available 03/27/2023 10:15:02 12/04/2023 [id number] AP pelvis, AP an d lateral radiographs of the right hip taken today demonstrate a right total hip replacement with components in appropriate position without any signs of hardware related complication. Not available 12/04/2023 09:25:30 Reason for Referral None Reported. Results Created Date Observation Date Name Description Value Unit Range Abnormal Flag Note LastModifiedBy Organization Detail LastModifiedTime 01/05/20 24 01/01/2024 MRI, hip, w/o contr ast EXAMIN ATION: MR HIP WITHOU T CONTRA ST, RIGHT CLINIC AL INFORM ATION: Right hip pain. Arthro plasty with subseq uent disloc ation. COMPAR YAEL: Most recent CT pelvis dated 2022. TECHNI QUE: Multip lanar MR images of the right hip were obtain ed on a high-f ield scanne r withou t intrav enous contra st. Metal reduct ion protoc ol was utiliz ed. FINDIN GS: Total right hip arthro plasty with associ ated artifa ct which somewh at limits evalua tion despit e metal reduct ion protoc ol. There is marrow edema within the acetab ulum shank threader iorly with minima l adjace nt soft tissue edema. No associ ated osseou s erosio n. Findin gs could repres ent a stress reacti on or be second asya to intra- articu lar pathol ogy. No additi onal abnorm al marrow signal . Partia lly visual ized left hip arthro plasty withou t eviden ce of compli cation . Orthop edic hardwa re within the lower lumbar spine. No sacral stress reacti on or fractu re. No concer emily lytic or blasti c osseou s lesion . Small- to-mod erate right hip joint effusi on. Small amount of fluid within the left greate r trocha nteric bursa, consis tent with mild bursit is. Mild left gluteu s medius and gluteu s minimu s tendin osis. Mild proxim al left hamstr ing tendin osis. No transv erse tendon tear or tendon retrac tion. No soft tissue mass. The visual ized intrap elvic struct ures are grossl y unrema rkable . IMPRES ALEXANDRE: 1. Total right hip arthro plasty with a small- to-mod erate joint effusi on. Marrow edema within the shank threader ior acetab ulum with minima l adjace nt soft tissue edema. Findin gs could repres ent a stress reacti on or be second asya to intra- articu lar pathol ogy. No associ ated osseou s erosio n. Joint fluid sampli ng could help furthe r evalua te. 2. Partia lly visual ized left hip arthro plasty withou t eviden ce of compli cation . 3. Mild left greate r trocha nteric bursit is. Mild left gluteu s medius and gluteu s minimu s tendin osis. Mild proxim al left hamstr ing tendin osis. No transv erse tendon tear or tendon retrac tion. Thank you for referr ing your jordana blakely to us, Juan M vega MD [id number] (Elect maria fernanda quinn Signed - 2023 07:56) Copy: JORDANA Blakely , [email or web address] [facility]) [address] [address], [place], [address], 01/07/2024 13:43:29 04/13/20 24 imagi ng/di royer tic resul t No observ ation record ed. [email or web address] Not Available 2023 09:55:17 Result Notes None recorded. Problems Name Problem SNOMED Code Status Onset Date Resolution Date Notes Provider Name and Address Organization Details Recorded Time Hip pain 16689504 Active 2022 Clifton Esteban MD [address], [place], [address], [place] [facility] 3 12:08:21 History of total replacement of right hip joint 5075850793906 00 Active 2022 TUAN ALEMAN PA-C [address], [place] [facility] [place], [address], [place] [facility] 3 14:21:57 Problem Notes None recorded. Procedures Surgical History Date Name Laterality Status Provider Name and Address Organization Details Recorded Time Hip Surgery completed Drew Gutierrez [place] [facility] 01/19/2023 14:11:38 Imaging Results Imaging Date Name Status LastModified by Organiz ation Details LastModified Time 01/01/2024 MRI, hip, w/o contrast completed [email or web address] [facility]) [address], [place], [address], 01/07/2024 13:43:29 04/13/2024 imaging/diagn ostic result completed [email or web address] Information not available 04/13/2024 09:55:17 Procedure Notes None recorded. Medical Equipment None Reported. Allergies Allergen ID Allergen Name Allergen Category Reaction Reaction Severity Criticality Documentation Date Start Date Code Code System Note Provider Name and Address Organization Details Recorded Time 1296 gabapenti n medicatio n Not available Not available Not available 12/05/2022 59467 RxNorm Krystal Varghese null, [place] [facility] 4 08:58:45 27626 morphine medicatio n Not available Not available Not available 12/04/2023 7052 RxNorm Krystal [place] null, [place] [facility] 4 08:58:51 74874 amoxicill in medicatio n Not available Not available Not available 12/04/2023 723 RxNorm Krystal Varghese null, [place] [facility] 4 08:58:57 03763 Vibramyci n medicatio n Not available Not available Not available 12/04/2023 20464 5 RxNorm Krystal Varghese null, [place] [facility] 4 08:59:05 Medications Name Sig Start Date Stop Date Status Note LastModified by Organization Details LastModified Time cyclobenzap rine 10 mg tablet TAKE 1 TABLET ORALLY 3 TIMES A DAY NEEDED FOR MUSCLE SPASM active Not Available Not Available No t Available lamotrigine 150 mg tablet TAKE 1 TABLET BY MOUTH TWICE A DAY active Not Available Not Available No t Available prednisone 10 mg tablet PLEASE SEE ATTACHED FOR DETAILED DIRECTION S active Not Available Not Available No t Available clindamycin HCl 300 mg capsule TAKE 1 CAPSULE BY MOUTH EVERY 8 HOURS UNTIL FINISHED active Not Available Not Available No t Available meloxicam 15 mg tablet 12/20 completed Not Available Not Available Not Available naltrexone 50 mg tablet TAKE 1/2 TABLET BY MOUTH DAILY AT BEDTIME active Not Available Not Available No t Available ondansetron HCl 4 mg tablet PLEASE SEE ATTACHED FOR DETAILED DIRECTION S 12/03 completed Not Available Not Available Not Available clonazepam 0.5 mg tablet PLEASE SEE ATTACHED FOR DETAILED DIRECTION S active Not Available Not Available No t Available sertraline 100 mg tablet TAKE 1.5 TABLETS (150 MG TOTAL) BY MOUTH DAILY. 12/03 completed Not Available Not Available Not Available clindamycin HCl 150 mg capsule TAKE 3 CAPSULES BY MOUTH 3 TIMES A DAY FOR 7 DAYS active Not Available Not Available No t Available valsartan 80 mg tablet TAKE 1 TABLET BY MOUTH EVERY DAY 12/03 completed Not Available Not Available Not Available topiramate 25 mg tablet TAKE 1/2 - 1 TABLET BY MOUTH DAILY BEFORE BED 12/20 completed Not Available Not Available Not Available meclizine 12.5 mg tablet TAKE 1 TABLET BY MOUTH THREE TIMES A DAY NEEDED NAUSEA/VO MITING FOR 40 DAYS 12/03 completed Not Available Not Available Not Available risperidone 0.25 mg tablet TAKE 1 TABLET BY MOUTH EVERY DAY NEEDED FOR OVER THINKING active Not Available Not Available No t Available aspirin 81 mg tablet,kavita yed release active Not Available Not Available Not Available acetaminoph en 500 mg tablet active Not Available Not Available Not Available lamotrigine 25 mg tablet TAKE 1 TAB IN THE AM AND 2 AT BEDTIME AND AFTER 2 WEEKS TAKE 2 TABLET BY MOUTH 2 TIMES A DAY 12/03 completed Not Available Not Available Not Available hydromorpho ne 2 mg tablet 12/03 completed Not Available Not Available Not Available methocarbam ol 750 mg tablet TAKE 1 TABLET 3 TIMES A DAY BY ORAL ROUTE NEEDED. 12/03 completed Not Available Not Available Not Available meclizine 25 mg tablet TAKE 1 TABLET 3 TIMES DAILY NEEDED FOR VERTIGO 12/03 completed Not Available Not Available Not Available hydrocodone 7.5 mg-acetamin ophen 325 mg tablet TAKE 1 TABLET EVERY 4-6 HOURS NEEDED FOR PAIN 12/03 completed Not Available Not Available Not Available cephalexin 500 mg capsule TAKE 1 CAPSULE BY MOUTH THREE TIMES A DAY 12/20 completed Not Available Not Available Not Available pantoprazol e 40 mg tablet,kavita yed release TAKE 1 TABLET BY MOUTH EVERY DAY active Not Available Not Available No t Available Senna Laxative 8.6 mg tablet 12/03 completed Not Available Not Available Not Available levetiracet am 750 mg tablet TAKE 1 TABLET BY MOUTH EVERY 12 HOURS 12/03 completed Not Available Not Available Not Available gabapentin 100 mg capsule TAKE 1 CAPSULE BY MOUTH TWICE A DAY 12/03 completed Not Available Not Available Not Available ibuprofen 600 mg tablet TAKE 1 TABLET BY MOUTH THREE TIMES A DAY NEEDED FOR PAIN active Not Available Not Available No t Available zolpidem 10 mg tablet TAKE 1/2 TO 1 TABLET AT BEDTIME NEEDED FOR SLEEP 12/03 completed Not Available Not Available Not Available lamotrigine 100 mg tablet TAKE 1 AND 1/2 TABLET BY MOUTH TWICE A DAY 12/03 completed Not Available Not Available Not Available oxycodone 5 mg tablet TAKE 1 TABLET BY MOUTH EVERY 4 HOURS NEEDED FOR PAIN active Not Available Not Available No t Available valsartan 40 mg tablet TAKE 1 TABLET BY MOUTH EVERY DAY active Not Available Not Available No t Available aripiprazol e 5 mg tablet TAKE 1 TABLET BY MOUTH EVERY DAY active Not Available Not Available No t Available rosuvastati n 10 mg tablet TAKE 1 TABLET BY MOUTH EVERYDAY AT BEDTIME active Not Available Not Available No t Available duloxetine 20 mg capsule,del ayed release TAKE 1 CAPSULE (20 MG) BY MOUTH EVERY DAY active Not Available Not Available No t Available duloxetine 30 mg capsule,del ayed release TAKE 1 CAPSULE BY MOUTH DAILY FOR 30 DAYS IN ADDITION TO 60 MG DAILY active Not Available Not Available No t Available duloxetine 60 mg capsule,del ayed release TAKE 1 CAPSULE BY MOUTH DAILY FOR 30 DAYS active Not Available Not Available No t Available GaviLyte-G 236 gram-22.74 gram-6.74 gram-5.86 gram oral solution TAKE 8 OUNCE BY MOUTH DIRECTED FOLLOW PREP INSTRUCTI ONS GIVEN BY YOUR DOCTOR'S OFFICE active Not Available Not Available No t Available Stimulant Laxative Plus 8.6 mg-50 mg tablet 12/03 completed Not Available Not Available Not Available duloxetine 40 mg capsule,del ayed release TAKE 1 CAPSULE BY MOUTH EVERY DAY 12/20 completed Not Available Not Available Not Available Vitals Date Recorded Body height Provider Name an d Address Organization Details Last Updated DateTime 12/04/2023 [address] [place] [facility] 12/04/2023 08:58:35 Date Recorded Body height Provider Name an d Address Organization Details Last Updated DateTime 01/08/2024 167[address] [place] [facility] 01/08/2024 15:16:31 Date Recorded Body height Body mass index (BMI) Body weight Provider Name and Address Organization Details Last Updated DateTime 03/27/2023 167.64 cm 33.9 kg/m2 78113.[address] [place] [facility] 03/27/2023 09:40:02 Social History None recorded. Functional Status None recorded. Mental Status None recorded. Family History Nothing Reported. Medical History Condition Response Stroke Y Hypertension Y Gynecological HistoryNo gynecological history recorded. Obstetrics History GPAL:G 0 P 0 0 0 0 Past Encounters Encounter ID Performer Location Encounter Start Date Encounter Closed Date Diagnosis/Indication Diagnosis SNOMED-CT Code Diagnosis ICD10 Code Diagnosis Note [id number] [place] [address] 12/05/2022 10:48:48 12/05/2022 12:18:45 Pain in right hip joint 2637476366 96150 M25.551 Hip pain 87431155 M25.55 1 Osteoarthr itis of right hip joint 2154959758 58948 M16.11 [id number] MD [facility] [address] [address] 01/19/2023 14:09:20 01/19/2023 14:26:04 History of total replacement of right hip joint 8077475786 69585 Z96.641 [id number] MD [facility] Tilley [address] [address] 02/17/2023 12:41:16 02/17/2023 13:28:28 Dislocation of hip joint prosthesis 433963535 Z96.649 [id number] MD [facility] [address] [address] 03/27/2023 09:26:25 03/27/2023 10:11:48 History of right hip replacement 1091043572 662847 Z96.641 Aftercare 676040378 Z47. 1 [id number] MD [facility] Til[facility] [address] [address] 12/04/2023 08:43:03 12/04/2023 09:22:32 History of total replacement of right hip joint 2349083161 57752 Z96.641 Surgical follow-up 74584 4000 Z47.1 Z96.641 Additional diagnosis detail: Aftercare following right hip joint replacemen t surgery [id number] MD [facility] Til[facility] [address] [address] 12/22/2023 13:11:04 12/22/2023 13:38:26 History of total replacement of right hip joint 8264997021 24377 Z96.641 Hip pain 37121198 M25.55 1 [id number] MD [facility] Tilley[address] [address] 01/08/2024 15:06:37 01/08/2024 15:37:06 History of total replacement of right hip joint 1404468753 [address] Z96.641 Hip pain [id number] M25.55 1 [address]4055 MD [facility] [address] [place] [address] 04/12/2024 13:20:58 04/12/2024 13:47:54 History of total replacement of right hip joint [id number] 50228 Z96.641 Health Concerns Section Related Observation LastModified by Organization Detai ls LastModified Time None Recorded Concern Status LastModified by Organization Details LastModified Time None Recorded Advance Directives Directive None Recorded Payers Encounter Date Sequence Insurance Name Policy Number Policy Carty Covered Member ID Carty Member ID Guarantor Name 03/27/2023 1 [id number] 2 Nina [employer] [id number] Nina [employer] 12/04/2023 1 [facility] (MEDICARE REPLACEMENT/A DVANTAGE - HMO) [id number] Nina Bear Wietecha [id number] Nina Bear Wietecha 12/22/2023 1 [facility] (MEDICARE REPLACEMENT/A DVANTAGE - HMO) [id number] Nina Bear Wietecha [id number] Nina Bear Wietecha 01/08/2024 1 [facility] (MEDICARE REPLACEMENT/A DVANTAGE - HMO) [id number] Nina Bear Wietecha [id number] Nina Bear Wietecha 04/12/2024 1 [facility] (MEDICARE REPLACEMENT/A DVANTAGE - HMO) [id number] Nina Bear Wietecha [id number] Nina De La Cruzcha OBGyn Episode No OBEpisode recorded.
--- OUTSIDE RECORDS SUMMARY | 2024-10-10 14:54 | XMS_ITS | Encounter Summary ---
Author Organization [facility] Address [address] [place] [address] Care Team Providers Care Electrical Technician Instructor Name Role Phone Diana Martinez Primary Care Provider + [phone] Carl Goodman MD Unavailable Osmar Chicas MD Unavailable [phone] Encounter Details Date Type Department Care Team (Late st Contact Info) Description 10/13/2023 Scanned Document [facility] Physicians Department of Internal Medicine [place] [address] [place] [address] Diana Martinez PA [address] [place] [address] Social History Tobacco Use Types Packs/Day Years Used Date Smoking Tobacco: Former Cigarettes Q uit: 2000 Smokeless Tobacco: Never Alcohol Use Standard Drinks/Week Comments Not Currently 0 (1 standard drink = 0.6 oz pur e alcohol) Sex and Gender Information Value Date Recorded Sex Assigned at Not on file Gender Identity Not on file Sexual Orientation Not on file documented as of this encounter Plan of Treatment Not on file documented as of this encounter Visit Diagnoses Not on filedocumented in this encounter Care Teams Electrical Technician Instructor Relationship Specialty Start Date End Date Diana Martinez PA [address] [place] [id number] PCP - General 01/03/22 Carl Goodman MD [address] [address] Surgery, Orthopedic 01/03/22 Osmar Chicas MD [address] [place] [address] Cardiovascular Disease 01/03/22 documented as of this encounter
--- OUTSIDE RECORDS SUMMARY | 2024-10-10 14:54 | XMS_ITS | Encounter Summary ---
Author Organization [facility] Address [address] [place] [address] Care Team Providers Care Superintendent Warehouse Name Role Phone Diana Martinez Primary Care Provider + [phone] Carl Goodman MD Unavailable Osmar Chicas MD Unavailable [phone] Encounter Details Date Type Department Care Team (Late st Contact Info) Description 10/12/[address] [facility] Physicians Department of Internal Medicine [place] [address] [place] [address] Diana Martinez PA [address] [place] [address] Social History Tobacco Use Types Packs/Day Years [...] on filedocumented in this encounter Care Teams Superintendent Warehouse Relationship Specialty Start Date End Date Diana Martinez PA [address] [place] [id number] PCP - General 01/03/22 Carl Goodman MD [address] [address] Surgery, Orthopedic 01/03/22 Osmar Chicas MD [address] [place] [address] Cardiovascular Disease 01/03/22 documented as of this encounter
--- OUTSIDE RECORDS SUMMARY | 2024-10-10 14:54 | XMS_ITS | Encounter Summary ---
Author Organization [facility] Address [address] [place] [address] Care Team Providers Care Lead Technologist In Cytogenetics Name Role Phone Diana Martinez Primary Care Provider + [phone] Carl Goodman MD Unavailable Osmar Chicas MD Unavailable [phone] Encounter Details Date Type Department Care Team (Late st Contact Info) Description 10/23/2023 Scanned Document [facility] Physicians Department of Internal Medicine [place] [address] [place] [address] Diana Martinez PA [address] [place] [address] Social History Tobacco Use Types Packs/Day Years [...] on filedocumented in this encounter Care Teams Lead Technologist In Cytogenetics Relationship Specialty Start Date End Date Diana Martinez PA [address] [place] [phone] PCP - General 01/03/22 Carl Goodman MD [address] [address] Surgery, Orthopedic 01/03/22 Osmar Chicas MD [address] [place] [address] Cardiovascular Disease 01/03/22 documented as of this encounter
--- OUTSIDE RECORDS SUMMARY | 2024-10-10 14:55 | XMS_ITS | Data Portability ---
Author Organization [facility], [facility] Address [address] [address] Assessment Encounter Date Assessment Date Assessment LastModified by Organization Details LastModified Time 07/04/2021 07/04/2021 ? A ccording to the practice guidelines for PTSD, stellate [...] - pursue right stellate ganglion block today [email or web address] Not available 07/03/2021 15:34:51 Plan of Treatment [...] Stellate Ganglion Block completed Gerry Rodriguez MD [address], , [facility] 07/03/2021 15:34:40 total replacement of hip completed Gerry Rodriguez MD [address], , [facility] 07/04/2021 12:51:02 arthroscopy of shoulder completed Gerry Rodriguez MD [address], , [facility] 07/04/2021 12:51:46 Imaging Results None recorded. Procedure Notes None recorded. Medical Equipment None Reported. Allergies Allergen ID Allergen Name Allergen Category Reaction Reaction Severity Criticality Documentation Date Start Date Code Code System Note Provider Name and Address Organization Details Recorded Time 42597 morphine medicatio n Not available Not available Not available 07/03/2021 7052 RxNorm Not Available Not Available Not Available 36877 amoxicill in medicatio n Not available Not available Not available 07/03/2021 723 RxNorm Not Available Not Available Not Available 11336 Vibramyci n medicatio n Not available Not available Not available 07/03/2021 5 RxNorm Not Available Not Available Not Available Medications Name Sig Start Date Stop Date [...] SNOMED-CT Code Diagnosis ICD10 Code Diagnosis Note [id number] Mary Campos MD [address] [place] [address] 07/04/2021 12:33:39 07/04/2021 13:29:01 Posttraumatic stress disorder [id number] F43.10 Chronic post-traumatic stress disorder [id number] F43.12 Health Concerns Section Related Observation LastModified [...] / ANXIETY Onset: Patient presents from the [facility] for PTSD. Patient has never been treated [...] Tried: sertraline, memantine, zolpidem Mary Campos MD [address] [place] [address], [address], [place], [address], [facility] 07/04/2021 13:09:31 OBGyn Episode No OBEpisode recorded.
--- OUTSIDE RECORDS SUMMARY | 2024-10-10 14:55 | XMS_ITS | Encounter Summary ---
Author Organization [facility] Address [address] [place] [address] Care Team Providers Care Job Forwarder Name Role Phone Floyd Romero MD Primary Care Provider Reason for Visit * Reason Comments Urinary Incontinence * Consultation (Routine) - Closed Specialty Diagnoses / Procedures Referred By Contyordy blakely Referred To Contact Urogynecology Diagnoses Urinary incontinence, unspecified type Floyd Romero MD [address] [place], [place] [facility] [address] Referral ID Status Reason Start Date Expiration Date V isits Requested Visits Authorized [id number] Closed Specialty Services Required 08/01/2024 08/01/2025 1 1 Encounter Details Date Type Department Care Team (Late st Contact Info) Description 09/29/2024 2:00 PM EST Office Visit Urogynecology - [address] [phone] Kiersten Sherwood NP [address] [place] [address] [address] [place] [address] Pelvic pain in female (Primary Dx); Urinary incontinence, unspecified type; Urgency of urination; Nocturia Social History Tobacco Use Types Packs/Day Years [...] for your loved ones. For example, child welfare worker or elderly care for an older adult? [...] file Not on file Not on file documented as of this encounter Last Filed Vital Signs Vital Sign Reading Time Taken Comments Blood Pressure 139/83 09/29/2024 1:57 PM EST Pulse 78 09/29/2024 1:57 PM EST Temperature - - Respiratory Rate - - Oxygen Saturation - - Inhaled Oxygen Concentration - - Weight 89.4 kg (197 lb) 09/29/2024 1:57 PM EST Height - - Body Mass Index 31.8 09/13/2024 8:55 AM EST documented in this encounter Progress Notes * Kiersten Sherwood, SENIOR BUDGET ANALYST - 09/29/2024 2:00 PM EST Return for PFPT Eliminate artificial sweeteners If no benefit will schedule Urodynamics Follow up the physician and cysto. Bowel Management Program Constipation treatment Start 1/2 dose miralax daily until stools soft. Add 1/3 recommended dose of fiber such as metamucilor citracel. Increase fiber weekly if well tolerated without bloating or harder stools. Water intake must increase with fiber use. Discontinue miralax as bowel function improved. Probiotics may be added, purchase one without lactose. Changes in diet may help to improve bowel habits. The amount of fiber in your diet and the amount of water that you drink play an important to maintaining the proper consistency of stool. Fiber acts like a sponge. When you take fiber with plenty of water, the fiber holds onto the water and becomes soft like a wet sponge. If you tend to be constipated, gradually increasing the amount of fiber in your diet will help to make your stool softer. Some patients benefit from taking additional stool softeners such as docusate sodium (Colace), which further help to soften the stool. Recommendations to improve bowel function Aim for 25 to 30 grams of fiber per day You may take a fiber supplement such as Metamucil, Citrucel, Fibercon tablets, Konsyl, Benefiber orother fiber supplements. When you start to add fiber to your diet, start off with adding a small amount. Some people experience gas, bloating or diarrhea when they begin to eat large amounts of fiber. Increasing the amount of fiber in your diet slowly, about 5 grams every 2-3 days, will help your body adjust to the extra fiber. 2. Make sure to stay hydrated, drinking plenty of water You should drink enough water so your urine looks like lemonade, not water or apple juice. Juice or milk may be substituted for water. Beverages with caffeine and alcoholic beverages can be dehydrating. 3. Miralax 17g (1 capful) once a day This is a non-habit forming laxative, and it is safe to take for long periods of time (even years!) Try taking at night for a morning bowel movement You can safely increase or decrease Miralax to what your bowels need; sometimes, people only need 1/2 a capful to have improved bowel function, or even every other day may be enough. 4. Docusate sodium (Colace) 100mg capsule 2 times per day This is a stool softener If you have hard stool, taking docusate sodium is like putting soap around a rock - you will still need to use other modalities to improve your stool consistency 5. Get some exercise! If you move, your bowels move! Try to take a walk, park farther away from a store entrance in the parking lot, take the stairs 5. Probiotics (Align) or Activia yogurt Some patients have a lot of success with probiotics However, they can be expensive, so if you do not have success, just stop taking probiotics! For your overactive bladder: - Start a bladder control medication (). This medication can take 4-6 weeks before it becomes effective. The most common side effects of many bladder control medications are dry mouth and constipation. Please see tips on how to manage these conditions listed below. - Start vaginal estrogen cream - Avoid bladder irritants by following a bladder diet (see bladder diet below) - Try to retrain your bladder (see training instructions below) - Improve your bowel function. Constipation can make overactive bladder and urine leakage worse. - Weight loss!! Weight loss can have a meaningful impact on your urinary incontinence! An 8% reduction in weight can reduce urinary incontinence symptoms by 50%. - Quit smoking! Smoking can lead to lung problems, which make you cough more. Coughing can promote urinary leakage. Nicotine can also cause bladder spasms. - Limit fluid consumption to less than 64oz of fluid a day (unless your battery vent plug inserter or other doctor has specifically told you that you need to drink a certain amount of water daily). Drink when you are thirsty, but do not overdrink Drink only enough so your urine is a light yellow color Stop drinking 2 hours before you go to bed - this will help decrease your need to get up during thenight to use the bathroom - When taking trospium ER 60 mg, try to take it every morning on an empty stomach one hour or more before you eat. You make take this with other medications like your thyroid medications that also need to be taken on an empty stomach. If you forget to take this before you eat, you may take it 2 hours or more after eating breakfast but at least an hour before eating something again. This is to help with absorbing the medicationIf this medication is VERY EXPENSIVE, do not pick it up from the pharmacy. Please check with your insurance company or pharmacy to find out which Overactive Bladder medication is covered and affordable for you to use, then contact our office with that information. Overactive Bladder Medications Oxybutynin (Oxybutynin Extended Release, Oxybutynin Immediate Release, Ditropan XL, Ditropan Immediate release) Trospium Immediate release (Sanctura) Trospium Extended release (Sanctura XR) Solifenacin (Vesicare) Tolterodine (Detrol) Fesoterodine (Toviaz) Darifenacin (Enablex) Mirabegron (Myrbetriq) Gemtesa (Vibegron) TIPS FOR MANAGING CONSTIPATION Miralax 17g (1 capful) once a day This is a non-habit forming laxative, and it is safe to take for long periods of time (even years!) Try taking at night for a morning bowel movement You can safely increase or decrease Miralax to what your bowels need; sometimes, people only need 1/2 a capful to have improved bowel function, or even every other day may be enough. Docusate sodium (Colace) 100mg capsule 2 times per day This is a stool softener If you have hard stool, taking docusate sodium is like putting soap around a rock - you will still need to use other modalities to improve your stool consistency Get some exercise! If you move, your bowels move! Probiotics (Align) or Activia yogurt Some patients have a lot of success with probiotics However, they can be expensive, so if you do not have success, just stop taking probiotics! TIPS FOR MANAGING DRY MOUTH: Antidepressants, anticholinergics (like some bladder control medications), antiparkinsonians, and antihistaminic drugs slow down the salivary glands resulting in dryness of the mouth. Here are some tips to decrease dental cavities, gum disease, thirst and odor: Sip cold water frequently. Roll it in your mouth before swallowing. Keep a glassful of crushed ice next to you. Sip on it to avoid overdrinking. Bacteria love our unrinsed mouth. [place] your teeth after each meal to avoid bacterial overgrowth. If you smoke, cut down or quit smoking. Try the assortment of dry mouth products by Biotene and ACT Chew sugar-free gum or a special gum for dry mouth, Biotene . Use sugar-free hard candies or lozenges. Keep your regular dental appointments. This will save your teeth and gums. Keep your lips moist by regular use of Chapstick, lip gloss, lip-seal, or vaseline. For extremely dry mouth, use artificial saliva called Oral Balance or Optimoist . Oral Balance is like jelly. Put it on your tongue. It slowly dissolves and produces moisture.Optimoist is sprayed into the mouth. You can also try Xylimelts for drymouth, which can be found on rateGenius Bladder Diet For some patients with ???overactive bladder??? or other irritative or painful bladder conditions, basic changes to the diet can help to reduce symptoms. Foods and beverages that make the urine more acidic, for instance, are likely to increase urinary urgency and frequency by irritating inflamed areas of the bladder or urethra. Perhaps the most significant bladder irritants are alcohol, caffeinated beverages, and carbonated beverages. To determine which foods or beverages, if any, might be affecting your bladder symptoms, we recommend the following: Review the potential ???triggers?? listed below. [place]ak items that you tend to eat or drink. An ???elimination diet?? involves avoiding the circled foods for around 3 weeks. After that period, try adding the eliminated items back into your diet, one at a time. Each time you eat or drink oneof the listed items, pay attention to patterns in your symptoms. If your symptoms seem to flare up after eating or drinking a certain food or beverage, eliminate it from your diet. If your symptoms do not get worse, you should be able to continue consuming the item without problems. Alternatively, if the ???elimination diet?? is too difficult, you could just try one-by-one elimination of possible triggers, while observing for improvement of your symptoms each time you make a change. Alcoholic Beverages Tomatoes / Tomato Juice Vitamin C Coffee & Tea (even decaf) Apples Vinegar Carbonated Beverages Pineapple & Cam Artificial Sweeteners [place] & Apple Juice Loly & Limes Pepper Chocolate Grapefruit & Other [place] Fruits Nectarines & Peaches Lemon Juice Cranberry Strawberries [place] / Spicy Seasonings Grapes, Peaches, Plums Cantaloupes ---- Bladder Training (Timed Voiding) What is bladder training? Bladder training is about getting rid of bad habits, learning good habits, and putting you back in control of your bladder instead of your bladder controlling you and your life. The goal of a bladder drill is for you to gradually: Increase the length of time between urinating Increase the amount of fluid your bladder can hold Diminish the sense of urgency and/or leakage you experience Your bladder may have taken many weeks, months, or years establishing its bad habits. It will take time, commitment, and patience to train your bladder into good habits. Most people notice some improvement within 2 weeks, although it may take up to 3 months or more to regain bladder control. Begin your bladder retraining program by choosing a time interval (the time between one urinary void to the next) that you can manage successfully, even if that means voiding as often as every 30 or 60 minutes. It is important, for starters, to choose a time interval that you feel will not be too challenging. No ???just in case?? visits to the bathroom between voids! Get up and go to the toilet when you wake in the morning. Then during your waking hours, you should attempt to urinate at the time interval you???ve chosen (for instance, every 60 minutes), whether or not you feel an urge at that moment. It is important that you try to void at that exact interval, whether you feel you need to go or not. This will train your bladder to void ???by the clock??? Try your best to ignore all other impulses to void, if they occur between the specified times. In order to ignore those impulses, you should use urge suppression techniques to mentally distract yourself by removing your thoughts from your bladder (for instance, try counting backwards from 100, by 3???s or 7???s), and physically suppress the urge by performing your strongest pelvic floor contraction (Kegel exercise). Try jaime your pelvic muscles quickly and strongly two or three times, then wait for the urge to disappear. If you need help learning an effective Kegel exercise, please askyour doctor or nurse for instructions. Sometimes a positional change can also help, such as changing from the standing to sitting position. When you can manage a regimen like this for a week, increase the time interval by 15-30 minutes. Keep increasing the time interval, on a weekly or monthly basis, until you are voiding at intervals ofapproximately 2 to 3 ?? hours. You will be the best operation shift supervisor of how quickly you can advance to the next step. Don???t try to advance too quickly; the process should occur ???slowly but surely over the course of several months. The schedule does not continue through the night. If nighttime urination is a problem, you should restrict fluids after dinner, generally 2 hours before you go to bed. Keeping a diary of your bladder activity is sometimes helpful to monitor your progress. A diary shows you the value of the effort you???re making Bladder drills tend to be an effective strategy in almost all patients with overactive bladder symptoms. Even if you are on another therapy such as medication, we encourage you to try this simple andrisk-free technique. WHY IS BLADDER RETRAINING THERAPY USED? It can help significantly reduce or resolve urge urinary incontinence episodes, feelings of urinaryurgency and frequent trips to the toilet. The main reason to do this is to restore normal bladder functioning. It is iris to relearning toilet training as a child. On a set timetable, you learn to suppress the feeling of bladder urgency and delay urination. Studies have shown success rates as high as approximately 80% for controlling overactive bladder symptoms when using bladder retraining therapy. HOW IS BLADDER RETRAINING THERAPY DONE? Voluntarily initiating urination and suppressing the urge to urinate reinforce the brain to bladder???communication highway?? . At first, and based on your voiding frequency, you should void ?? hourless than your usual time to urinate. For example, if you usually urinate every 1?? hours you will be instructed to urinate every 1 hour during your waking hours. The reason for this is to reestablish a connection from the brain to the bladder, ???initiate urination?? whether there is an urge present or not. You will do this scheduled voiding during waking hours only and kelsey it down on a daily on a sheet of paper. Approximately every two to three weeks the interval of time to urinate will incr ease so you will now experience the urge to void. If it is not your scheduled time to urinate you will use to suppress the bladder contraction. Theseare doing a ???Kegel?? contraction (pelvic floor muscle contraction) to inhibit unwanted involuntary bladder contractions. Performing a strong quick muscle contraction can stimulate a reflex to stopthe bladder from jaime and therefore prevent urinary urgency and/or leakage. You can also usedistraction as a technique to control these symptoms, such as counting backwards from 100 by 7s (100...93...). It is important to use these techniques. Sometimes you will fail and might leak some urine. You will note this in your bladder diary. It is better to try to suppress an urge and fail then not try and run to toilet. Success with this program depends on your strength to follow the instructions as directed! This therapy lasts several months with periodic visits with the physician or nurse to assess progress, reinforce bladder inhibition techniques and reach goal attainment. HOW TO PREPARE FOR BLADDER RETRAINING. There is no preparation for a bladder retraining therapy session. It is important to be motivated to stick with the program to achieve success. It is likely to take 3 or 4 months to achieve your goalbut keep in mind it is your investment in yourself and has no side effects. * Kiersten Sherwood NP - 09/29/2024 2:00 PM EST UROGYNECOLOGY NEW PATIENT OFFICE VISIT VISIT LOCATION: [place] DATE: 09/28/2024 HISTORY OF PRESENT ILLNESS: Nina Bella is a 59 y.o. female who presents for consultation requested by Floyd Romero for an opinion regarding Urinary incontinence. Pt verbalized multiple concerns and questions at her last f/u with Primary care. She reported Urinary inconitnence at that visit. Psych mental health history reviewed for med use. URINARY SYMPTOMS Pt states her symptoms have recently better. Pt lost 50 lbs this year. Spinal surgery done 2017, 2022. Cervical fusion/ Lumbar fusion 2022 Noted for approx one year. HALLE-6 score:12 Daytime frequency: several times per hour Nocturia: 2x/night, poor sleeper, + DEBRA Urgency: Yes Urgency Urinary incontinence: Yes unable to wait if someone is in the bathroom she will void in a plastic container Stress urinary incontinence: Yes Positional incontinence: Yes Coital incontinence: No Insensible loss: Yes Nocturnal enuresis: No Post void dribbling: Yes Incomplete emptying: Yes Pad use up to 2 daily. Daily urinary urgency without void. History of kidney stones: No Fluids: Water, occ soda, lemonade, coffee- some Prior urinary incontinence treatment: Recurrent UTIs: No Dysuria: No Hematuria: No History of bladder cancer: No VAGINAL SYMPTOMS Vaginal bulge: No BOWEL SYMPTOMS Recently seen by GI- Colonoscopy, ct scan for right lateral abdominal pain Bowel movement frequency: 2 a week, stool type 2 on [place] Stool Scale Straining: positive Incomplete emptying of stool: 80% of BMs Splinting to defecate: Yes months Digitation to defecate: Yes Urge FI: No Passive FI: No Prior bowel regimens: taking miralax SEXUAL FUNCTION Sexually active: No Dyspareunia? No History of sexual or physical abuse? Denies OBSTETRIC AND GYNECOLOGIC HISTORY: twins Deliveries: section x1 Prior abdominal procedure(s): no Abnormal Pap smear: No Last Pap: screening up to date Abnormal Mammogram: Yes Last Mammogram: Abnormal Colon Screen: Yes Last Colon Screen: Prior Pelvic Radiation: No Menopause? Yes LMP: 10 years Hormone Replacement Therapy: no Any postmenopausal bleeding? No ADDITIONAL REVIEW OF SYSTEMS (ROS): None except as mentioned in the HPI PAST/FAMILY/SOCIAL HISTORY (PFSH): Past Surgical History: No date: APPENDECTOMY Comment: PROCEDURE: HISTORICAL APPENDECTOMY 06/2002: SECTION, LOW TRANSVERSE 03/2021: COLONOSCOPY Comment: PROCEDURE: HISTORICAL COLONOSCOPY; COMMENT: Internal and external hemorrhoids, otherwise unremarkable. On a 5-year schedule due to history of adenoma greater than 10 mm 07/07/2024: COLONOSCOPY Comment: recall 5-years. 07/07/2024: ESOPHAGOGASTRODUODENOSCOPY Comment: Bx suggestive of celiac vs SIBO, labs negative for celiac. Negative h. pylori. 2018: HIP ARTHROPLASTY; Bilateral Comment: PROCEDURE: HISTORICAL HIP REPLACEMENT; COMMENT: and 2022 2021: OTHER SURGICAL HISTORY Comment: lumbar fusion 2021: OTHER SURGICAL HISTORY Comment: cervical fusion 2019: SHOULDER SURGERY; Right Comment: PROCEDURE: HISTORICAL SHOULDER SURGERY; COMMENT: ? arthroscopy Past Medical History: No date: Hypertension 12/24/2023: Vitamin B12 deficiency Comment: DX:Vitamin B12 deficiency 12/24/2023: Vitamin B12 deficiency 12/24/2023: Vitamin D deficiency Family History Problem Relation Name Age of Onset Other (Other: Sepsis) Mother Prostate cancer Father Johm HTN Hypertension Father Johm Hypertension Sister Violeta Hypertension Brother back issues Ovarian cancer Maternal Grandmother Pancreatic cancer Maternal Grandfather Breast cancer Paternal Grandmother 70s Heart attack Paternal Grandfather Dont know No Known Problems Son Celiac disease Daughter Alicja reports that she quit smoking about 7 years ago. Her smoking use included cigarettes. She has neverused smokeless tobacco. She reports that she does not currently use alcohol. She reports current drug use. Drug: Marijuana/Cannabis. I have reviewed the ROS and PFSH documented in the patient's intake forms, and have updated them asnecessary. Leatha Sherwood NP OBJECTIVE: There were no vitals filed for this visit. Physical Exam Constitutional: BMI - There is no height or weight on file to calculate BMI. General - Awake, alert, no acute distress Psychiatric: oriented to time, place, and person Head: normocephalic atraumatic Pulmonary: normal respiratory effort; speaking in full sentences comfortably Abdominal: no masses, tenderness or rebound Pelvic examination, performed with a speculum and chaperoned by medical insurance claims processor External Genitalia: Normal architecture, without lesions. No erythema. No discharge. Not stenotic or lichenified thinning of genital tissue Urethral Meatus: normal urethral meatus Urethra: supine cough stress test negative, tenderness, and urgency Bladder: tenderness and urgency Vagina: atrophic epithelium and tender exam Cervix: present Bimanual exam: exam limited by body habitus, no adnexal fullness or tenderness Limited due to pelvic pain with exam POP-Q: prolapse noted: no Levator Ani Contraction: flicker (1/5): Trace but instant contraction: <1 second Levator Ani Tone: normal and able to relax Levator Ani Tenderness: levator bilateral R>L Rectovaginal: normal Anal Sphincter: Resting Tone: 3 - normal Squeeze Strength: 4 - elevated tone, snug Sphincter Defect: no Pt reporting pain radiating to right pelvis post exam. Saddle Sensory Exam (S2-4): normal DIAGNOSTIC / LABORATORY TESTING POST-VOID RESIDUAL BY INSERTION OF NON-INDWELLING BLADDER CATHETER The decision was made to perform a simple in/out catheter for post-void residual urine to evaluate patient's urgency urinary incontinence (N39.41), urinary frequency (R39.5), nocturia (R35.1) MDM necessitates a procedure to be performed to evaluate a post-void residual urine. Voiding pattern interpretation: Low volume void in BR prior to visit. Unable to interpret as void less than 150mL PVR = 25mL, interpreted as no urinary retention (not a true PVR, as greater than 10 minutes after void) Procedure: I performed a catheterization. I cleansed the urethral meatus with Betadine. Under sterile techniques a straight cath was inserted. Specimen was collected without difficulty. Patient tolerated procedure well. Leatha Sherwood NP 09/28/2024 URINE DIPSTICK performed due to urgency urinary incontinence (N39.41), urinary urgency (R39.15), urinary frequency (R39.5), nocturia (R35.1), urinary incontinence without sensory awareness (N39.42) No results found for: COLOR , APPEARANCE , POCGLUCURN , BILIRUBIN , KETONE , SPECGRAV , BLOOD , PH , PROTEIN , UROBILINOGEN , NITRITE , LEUKOCYTES I have reviewed the urine dip and interpreted it as no sign of infection or microscopic hematuria Assessment & Plan: [facility] updated for surgical history Overactive Bladder / Urgency Urinary Incontinence (Stable chronic illness) During this visit we discussed the nature of and anatomy related to overactive bladder syndrome. Wereviewed a wide range of treatment options including dietary triggers, behavioral retraining and bladder drills, oral medications, pelvic floor physiotherapy and exercise to assist with urge suppression. I mentioned that there are other treatment modalities in the event the patient is refractory tofirst and second line therapies, such as cystoscopic botulinum toxin injections and sacral neuromodulation therapy. She was given an [facility] patient fact sheet on Overactive Bladder Syndrome. We discussed a how multimodal treatment plan with the goal of improving the patient's quality of life. We discussed that symptoms will likely improve with multiple treatment modalities, but may not completely resolve. She would like to pursue the following treatment plan: - Weight loss- 8% weight loss has correlated with improvement in urinary symptoms - Fluid Management- discussed consuming no more than 64 oz daily - Bladder diet: avoidance of caffeine, artificial sweeteners, and other triggers - Bladder retrianing: work on rewiring the neurologic connect between bladder and brain - Discussed vaginal estrogen cream - Pelvic Floor Physical Therapy - discussed. medical therapy. Monitor for side effects of constipation, dry mouth, dry eyes. - Schedule multichanel urodynamics to aid in determining whether detrusor overactivity, urodynamic stress urinary incontinence, and/or voiding dysfunction are contributing to the patient's symptoms. Risks, benefits, alternatives to urodynamics discussed. Literature on urodynamics provided. Treatment options will be further discussed based upon the findings of this study. We discussed pt medication for seizures and Mental health. Advised some side effects including urinary frequency associated with use. - Schedule office cystourethroscopy due to pelvic pain r/o IC. Cystourethroscopy will aid in determining whether anatomic abnormalities or lesions are contributing to the patient's symptoms. Risks, benefits, alternatives to cystourethroscopy were discussed. Literature on cystourethroscopy was provided. Treatment options will be further discussed based upon the findings of this study. Pelvic Pain We discussed pt pain associated with PE Provided education regarding Pelvic floor disorders , PFTM and urinary frequency. Pt referred for PFPT. Eval and treat for pelvic pain, mixed urinary incontinence and bowel dysfunction. CONSTIPATION -Discussed at length the pathophysiology of constipation and how it can cause urinary frequency, urgency, UUI, incomplete bladder emptying and UTIs. -Recommend aggressive management of bowels with agents including Colace, Miralax and Citrucel -Recommend referral to GI for further management of constipation, if symptoms persist despite usinga bowel regimen. Pt is currently seeking care from GI Advises no additional measures until work up complete Advised can add OTC bulking magnesium and miralax. (Chronic illness with exacerbation, progression, or side effects of treatment) Treatment plan: Schedule PFPT Assess for changes in urinary symptoms as well as referred pelvic pain Continue bowel health program . Requested plan of care per GI Pending additional testing including UDS, cysto post therapy Option for estrace vaginal at f/u appt. RTO 3 months Risk of morbidity, mortality and/or complications of treatment plan: I spent a total of 50 minutes on the date of the service, in seeing the patient and performing the following activities: Preparing to see the patient (e.g. reviewing tests) Obtaining and/or reviewingseparately obtained history Counseling and educating the patient, family or caregiver Referring and communicating with other health career development associate (not separately reported) Documenting clinical information in the electronic health record Coordination of care (not separately reported) My final recommendations will be communicated back to the requesting provider. CC: DR Floyd Sherwood NP 09/28/2024 documented in this encounter Plan of Treatment Upcoming Encounters Date Type Department Care Team (Late st Contact Info) Description 10/17/2024 9:20 AM EST Office Visit Gastroenterology - [facility] [address] [phone] Jaycee Hilario PA [address] [facility] [address] [place] [address] 10/27/2024 2:45 PM EST Office Visit Urogynecology [address] [phone] Kiersten Sherwood, SENIOR BUDGET ANALYST [address] [address] 11/04/2024 2:30 PM EST Treatment Pelvic Floor Rehabilitation - [address] [phone] Yessica Sanchez, PT [address] [address] 11/11/2024 11:00 AM EST Treatment Pelvic Floor Rehabilitation - [address] [phone] Yessica Sanchez, PT [address] [address] 11/18/2024 2:00 PM EDT Treatment Pelvic Floor Rehabilitation - [address] [phone] Yessica Sanchez, PT [address] [address] 11/25/2024 11:00 AM EDT Treatment Pelvic Floor Rehabilitation - [address] [phone] Yessica Sanchez, PT [address] [address] 12/02/2024 1:00 PM EDT Treatment Pelvic Floor Rehabilitation - [address] [phone] Yessica Sanchez, PT [address] [address] 12/09/2024 2:00 PM EDT Treatment Pelvic Floor Rehabilitation - [address] [phone] Yessica Sanchez, PT 580 [place] [address] 01/31/2025 8:30 AM EDT Office Visit Adult Medicine East - [address] [phone] Suyapa Saini PA [address] [place] [address] 03/21/2025 1:50 PM EDT Appointment Radiology Department - [address] [phone] documented as of this encounter Visit Diagnoses Diagnosis Pelvic pain in female- Primary Unspecified symptom associated with female genital organs Urinary incontinence, unspecified type Urgency of urination Nocturia Encounter for screening mammogram for breast cancer documented in this encounter Orders Outpatient Referral Count Last Ordered Date st Ordered Date AMB REFERRAL TO UROGYNECOLOGY 1 09/29/2024 documented in this encounter Additional Health Concerns Assessment Noted Time PHQ-9 Depression Total Score: 11 024 12:57 PM EST documented as of this encounter Care Teams Job Forwarder Relationship Specialty Start Date End Date Floyd Romero MD [address] [place] [address] PCP - General 09/23/23 documented as of this encounter
--- OUTSIDE RECORDS SUMMARY | 2024-10-10 14:55 | XMS_ITS | Clinical Summary ---
Author Organization [facility] Address [address] [place] [address] Care Team Providers Care Medical Office Receptionist Name Role Phone Diana Martinez Primary Care Provider [phone] Carl Goodman MD Unavailable Osmar Chicas MD Unavailable [phone] Allergies Active Allergy Reactions Criticality Noted Date Comments Amoxicillin Rash/Dermatitis,Hive s Medium 03/18/2018 rash Doxycycline Unknown/Patient and Family Unable to Define,GI Bleeding,Other (See Comments) High 03/18/2018 Internal bleeding GI BLEEDING Internal bleeding Iodinated Contrast Media Shortness Of Breath High 02/05/2022 SOB SOB Has recently had contrasted Dye without reaction Latex Itching Low 02/05/2022 C/O: itching Morphine Rash/Dermatitis,Hive s Medium 10/12/2010 Other reaction(s): rash Medications Medication Sig Dispensed Refills Start Date End Date Status zolpidem (AMBIEN) 10 MG tablet Take 10 mg by mouth nightly. Active ARIPiprazole (ABILIFY) 5 MG tablet Take 2.5 mg by mouth every evening. Active clonazePAM (KlonoPIN) 0.5 MG tablet TAKE 1-2 TABLETS ONCE A DAY IF NEEDED FOR ANXIETY 12/31/2021 Active sertraline (ZOLOFT) 100 MG tablet Take 1.5 tablets by mouth daily. 100 mg morning, 50 mg night 05/10/2019 Active ondansetron (ZOFRAN) 4 MG tablet PLEASE SEE ATTACHED FOR DETAILED DIRECTIONS 09/12/2022 Active meclizine (ANTIVERT) 25 MG tablet Take by mouth. 06/03/2022 Active valsartan (DIOVAN) 80 MG tabletIndications:H ypertension, unspecified type TAKE 1 TABLET BY MOUTH DAILY. 90 tablet 3 02/13/2023 Active Additional Information Patient taking differently: 40 mgOral Daily, Reported on 03/17/2023 lamoTRIgine (LaMICtal) 100 MG tablet 150 mg AM, 100 mg PM 03/04/2023 Active methocarbamol (ROBAXIN) 750 MG tablet TAKE 1 TABLET 3 TIMES A DAY BY ORAL ROUTE NEEDED. 02/17/2023 Active oxyCODONE (ROXICODONE) 5 MG immediate release tablet 02/12/2023 Active levETIRAcetam (KEPPRA) 750 MG tablet Take 375 mg by mouth every other day. Active cephalexin (KEFLEX) 500 MG capsuleIndications: Folliculitis Take 1 capsule (500 mg total) by mouth 3 (three) times a day. 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 02/10/2023 03/17/2023 History of total right hip replacement 3 03/17/2023 Chronic lower back pain 01/06/2023 01/07/20 Chronic right shoulder pain 01/06/2023 05/0 10/2022 Jaw pain 01/06/2023 01/06/2023 Upper back pain 01/06/2023 01/06/2023 Daytime somnolence 01/06/2023 01/06/2023 Depression 01/06/2023 01/06/2023 Difficulty swallowing 01/06/2023 01/06/2023 Dyslipidemia 01/06/2023 01/06/2023 Dyspnea 01/06/2023 01/06/2023 Elevated alkaline phosphatase level 01/06/2023 01/06/2023 Elevated C-reactive protein (CRP) 01/06/2023 01/06/2023 Generalized weakness 01/06/2023 01/06/2023 Lumbar stenosis 01/06/2023 01/06/2023 Lymph nodes enlarged 01/06/2023 01/06/2023 Memory impairment 01/06/2023 01/06/2023 Obesity (BMI 30-39.9) 01/06/2023 01/06/2023 Palpitation 01/06/2023 01/06/2023 Peripheral vertigo 01/06/2023 01/06/2023 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 Positive COLTON (antinuclear antibody) 01/06/2023 01/06/2023 PTSD (post-traumatic stress disorder) 01/06/2023 01/06/2023 S/P cervical spinal fusion 01/06/202301/06 S/P lumbar fusion 01/06/2023 01/06/2023 Unsteady gait 01/06/2023 01/06/2023 Osteoarthritis of right hip 12/29/2022 05/0 10/2022 Hip pain, right 12/05/2022 01/06/[address] 11/06/2022 Anxiety 11/06/2022 Atelectasis, right 11/06/2022 Bruising 11/06/2022 Low vitamin D level 11/06/2022 Insomnia 11/06/2022 Hypertension 11/06/2022 Hydrocephalus 11/06/2022 Thoracic nerve root impingement 11/06/2022 Spondylolisthesis of lumbar region 10/25/2018 Cervical radiculopathy 10/25/2018 Chronic neck pain 10/25/2018 01/06/2023 Degenerative disc disease, cervical 10/25/2018 01/06/2023 Primary osteoarthritis of left hip 04/05/2018 01/06/2023 Resolved Problems Problem Noted Date Diagnosed Date Resolved Date CVA (cerebral vascular accident) 01/06/2023 01/07/2006/05/2023 Immunizations Name Administration Dates Next Due Influenza Whole 06/07/2010 Influenza, Quadrivalent (FLU ARIX, AFLURIA, FLULAVAL, FLUZONE) Preservative Free IM 05/27/2023 Tdap 11/08/2012 Tetanus Toxoid, Unspecified 09/07/2002 Family History Medical History Relation Name Comments No Known Problems Brother Prostate cancer Father Rheum arthritis Mother Hypertension Sister Relation Name Status Comments Brother Alive Father Mother Sister Alive Social History Tobacco Use Types Packs/Day Years Used Date Smoking Tobacco: Former Cigarettes Q uit: 2000 Smokeless Tobacco: Never Tobacco Cessation:Counseling Given: Not Answered Alcohol Use Standard Drinks/Week Comments Not Currently 0 (1 standard drink = 0.6 oz pur e alcohol) Sex and Gender Information Value Date Recorded Sex Assigned at Not on file Gender Identity Not on file Sexual Orientation Not on file Last Filed Vital Signs Vital Sign Reading Time Taken Comments Blood Pressure 127/84 05/27/2023 1:06 PM EDT Pulse 73 05/27/2023 1:06 PM EDT Temperature 36.8 ??C (98.3 ??F) 02/07/2022 10:00 AM E DT Respiratory Rate 17 02/07/2022 10:00 AM EDT Oxygen Saturation 97% 05/27/2023 1:06 PM EDT Inhaled Oxygen Concentration - - Weight 101 kg (222 lb) 05/21/2023 9:12 AM EDT Height 165.1 cm (5' 5 ) 05/21/2023 9:12 AM EDT Body Mass Index 36.94 05/21/2023 9:12 AM EDT Plan of Treatment Health Maintenance Due Date Last Done Comments Hepatitis C Virus Screening 1965 HIV Screening 1978 Hepatitis B Vaccines (1 of 3 - 19+ 3-dose series) 1984 Pneumococcal Vaccines 50+ (1 of 2 - PCV) 1984 Pap Smear (Ages 21-65) 1986 Mammogram 2005 Colonoscopy 2010 Zoster (Shingles) Vaccine (1 of 2) 2015 DTaP/Tdap/Td Vaccines (2 - T d or Tdap) 11/08/2022 11/08/2012 Influenza Vaccine 04/07/2024 05/27/2023, 06/07/2010 COVID-19 Vaccine ( season) 2024 07/08/2021, 10/19/2020, 09/28/2020 Medical Devices Implanted Type Area Stars Coordinator Device Identifier Shelf Expiration Date Model / Serial / Lot [id number] Spacer Spinal [id number] Rise-L 10d Nonst - [id number] Implanted:Qty: 2 on 02/05/2022 by Carl Goodman MD at [facility] Cage N/A: Spine Lumbar [employer] [id number] / / [id number] Voyager Mas Screw Implanted:Qty: 2 on 02/05/2022 by Carl Goodman MD at [facility] Screw N/A: Spine Lumbar [employer] MINIMALLY INVASIVE T [id number] / / [id number] Screw Set 5.5/6mm Cd Hzn Soleral Vygr Nonst Lf - [id number] Implanted:Qty: 6 on 02/05/2022 by Carl Goodman MD at [facility] Screw N/A: Spine Lumbar [employer] MINIMALLY INVASIVE T [id number] / / [id number] Screw Bone Spine Cd Hzn Vygr 50mm 6.5mm Ma Nonst 5.5mm Nestor - [id number] Implanted:Qty: 2 on 02/05/2022 by Carl Goodman MD at [facility] Spine N/A: Spine Lumbar [employer] MINIMALLY INVASIVE T [id number] / / [id number] Screw Bone Spine Cd Hzn Vygr 45mm 6.5mm Ma Nonst 5.5mm Nestor - [id number] Implanted:Qty: 2 on 02/05/2022 by Carl Goodman MD at [facility] Spine N/A: Spine Lumbar [employer] MINIMALLY INVASIVE T [id number] / / [id number] Tab Fixation 5.5/6mm Spine Manager Immunology Sleeve - [id number] Implanted:Qty: 12 on 02/05/2022 by Carl Goodman MD at [facility] Spine N/A: Spine Lumbar [employer] MINIMALLY INVASIVE T [id number] / / [id number] Graft Bone 23mm 14mm Infs Sm Spine Rhbmp-2 Bvn Collagen - [id number] Implanted:Qty: 1 on 02/05/2022 by Carl Goodman MD at [facility] Tissue N/A: Spine Lumbar [employer] MINIMALLY INVASIVE T 06/06/2024 [id number] / / [id number] Graft Bone Kore Fiber Marcial Bone Fiber 5cc Algrf Mld High - [id number] Implanted:Qty: 1 on 02/05/2022 by Carl Goodman MD at [facility] Tissue N/A: Spine Lumbar [employer] FOU 02/21/2024 [id number] / [id number] / 5.5/6.0 Sv Cap Implanted:Qty: 6 on 02/05/2022 by Carl Goodman MD at [facility] N/A: Spine Lumbar [employer] MINIMALLY INVASIVE T [id number] / / 5.5 Ccm Prec Nestor 80mm Implanted:Qty: 2 on 02/05/2022 by Carl Goodman MD at [facility] N/A: Spine Lumbar [employer] MINIMALLY INVASIVE T [id number] / / Explanted Type Area Stars Coordinator Device Identifier Shelf Expiration Date Model / Serial / Lot [id number] Screw Bone Spine Schnz 120mm 4mm - [id number] Explanted:Qty: 1 on 02/05/2022 at [facility] Spine N/A: Spine Lumbar [employer] MINIMALLY INVASIVE T [id number] / / Description:supply item Advance Directives * Full Code (Latest Code Status on File) Date Activated Date Inactivated Comments 02/05/2022 6:30 PM * Full Code Date Activated Date Inactivated Comments 02/05/2022 10:09 AM 02/05/2022 6:30 PM Care Teams Medical Office Receptionist Relationship Specialty Start Date End Date Diana Martinez PA [address] [place] [address] PCP - General 01/03/22 Carl Goodman MD [address] [address] Surgery, Orthopedic 01/03/22 Osmar Chicas MD [address] [place] [id number] Cardiovascular Disease 01/03/22
--- OUTSIDE RECORDS SUMMARY | 2024-10-10 14:55 | XMS_ITS | Encounter Summary ---
Author Organization [facility] Address [address] [place] [address] Care Team Providers Care Pension Agent Name Role Phone Floyd Romero MD Primary Care Provider Encounter Details Date Type Department Care Team ([facility] st Contact Info) Description 09/13/2024 Telephone Gastroenterology - [address] [place] [phone] Jaycee Hilario PA [address] [place], [place] [id number] Social History Tobacco Use Types Packs/Day Years Used Date Smoking Tobacco: Former Cigarettes Q uit: 09/07/2017 Smokeless Tobacco: Never Alcohol Use Standard Drinks/Week [...] Record ed Within the last 3 months, leif wise many times did you visit the emergency [...] care for your loved ones. For example, director child development center or elderly care for an older adult? [...] on file documented as of this encounter Progress Notes * DAVION Wang - 09/13/2024 4:53 PM EST Spoke with patient regarding U/S results. No gallstones or acute abnormality, still plan for CT scan, which is scheduled for 09/19. For now, work on improving constipation with addition of fiber supplements and/or miralax daily. * DAVION Wang - 09/13/2024 3:51 PM EST Which phone number did the patient call with? I wasn't sure if her number is accurate. * Franny Liceais - 09/13/2024 3:37 PM EST PT RETURNING YOUR CALL, PLEASE TRY AGAIN WHEN YOU'RE AVAILABLE documented in this encounter Plan of Treatment Upcoming Encounters Date Type Department Care Team (Late st Contact Info) Description 10/17/2024 9:20 AM EST Office Visit Gastroenterology - [address] [facility] [address] [place] [phone] Jaycee Hilario PA [address] [address] 10/27/2024 2:45 PM EST Office Visit Urogynecology - [address] [phone] Kiersten Sherwood, SPECIAL INVESTIGATOR [address] [address] 11/04/2024 2:30 PM EST Treatment Pelvic Floor Rehabilitation - [address] [phone] Yessica Sanchez, PT [address] [address] 11/11/2024 11:00 AM EST Treatment Pelvic Floor Rehabilitation - [address] [phone] Yessica Sanchez, PT [address] [address] 11/18/2024 2:00 PM EDT Treatment Pelvic Floor Rehabilitation - [address] [phone] Yessica Sanchez, PT [address] [address] 11/25/2024 11:00 AM EDT Treatment Pelvic Floor Rehabilitation - [address] [phone] Yessica Sanchez, PT [address] [address] 12/02/2024 1:00 PM EDT Treatment Pelvic Floor Rehabilitation - [address] [phone] Yessica Sanchez, PT [address] [address] 12/09/2024 2:00 PM EDT Treatment Pelvic Floor Rehabilitation - [address] [phone] Yessica Sanchez, PT [address] [address] 01/31/2025 8:30 AM EDT Office Visit Adult Medicine East - [address] [phone] Suyapa Saini PA [address] [place] [address] 03/21/2025 1:50 PM EDT Appointment Radiology Department - [address] [phone] documented as of this encounter Visit Diagnoses Not on filedocumented in this encounter Additional Health Concerns Assessment Noted Time PHQ-9 Depression Total Score: 11 024 12:57 PM EST documented as of this encounter Care Teams Pension Agent Relationship Specialty Start Date End Date Floyd Romero MD [address] [place] [address] PCP - General 09/23/23 documented as of this encounter
--- OUTSIDE RECORDS SUMMARY | 2024-10-10 14:55 | XMS_ITS | Data Portability ---
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 [email or web address] Not available 11/13/2023 15:19:18 02/04/2024 02/04/2024 Patient is doing well status post C6-7 anterior cervical diskectomy with allograft fusion. She does have some lower back pain and radiculopathy to the right groin suspicious for L3 radiculopathy. [email or web address] Not available 02/04/2024 14:02:16 03/03/2024 03/03/2024 Patient is recovering with moderate reactivation of cervical spondylosis below the level of her fusion. [email or web address] Not available 03/03/2024 12:30:46 04/14/2024 04/14/2024 Patient is recovering status post anterior cervical discectomy with allograft fusion below the level of fusion at C6-7. Not available 04/14/2024 13:45:59 Plan of Treatment [...] serie s No observ ation record ed. [facility] [address] [place], [address], 10/12/2023 10:26:42 10/11/19 24 10/09/2023 XR, spine , scoli osis serie s No observ ation record ed. [facility] [address] [place], [address], 10/12/2023 10:34:03 10/21/19 24 10/20/2023 MRI, lumba r spine , w/o contr ast No observ ation record ed. [facility] ([facility] [address] [place], [address], 10/22/2023 13:51:34 10/21/19 24 10/20/2023 MRI, cervi thu spine , w/o contr ast No observ ation record ed. [facility] [address] [place], [address], 10/22/2023 13:51:35 01/18/20 24 01/13/2024 elect aminta parmar am No observ ation record ed. [facility] Atention: Jose Rafael [address] [place], [address], 01/19/2024 09:17:55 01/22/20 24 01/18/2024 XR, cervi thu spine , 2 or 3 view No observ ation record ed. [facility] Atention: Jose Rafael [address] [place], [address], 01/26/2024 09:52:50 02/05/20 24 02/04/2024 XR, cervi thu spine , 2 or 3 view No observ ation record ed. [facility] (Medical Records) [address] [place], [address], 02/08/2024 10:04:41 02/05/20 24 02/04/2024 XR, cervi thu spine , 2 or 3 view No observ ation record ed. [facility] (Medical Records) [address] [place], [address], 02/08/2024 10:45:46 02/05/20 24 02/04/2024 XR, lumba r spine No observ ation record ed. [email or web address] Not Available 2023 10:45:23 02/05/20 24 02/04/2024 XR, lumba r spine No observ ation record ed. [facility] (Medical Records) [address] [place], [address], 02/08/2024 10:04:41 03/03/20 24 03/03/2024 XR, cervi thu spine , 2 or 3 view No observ ation record ed. [facility] (Medical Records) [address] [place], [address], 03/04/2024 09:49:59 03/03/20 24 03/03/2024 XR, cervi thu spine , 2 or 3 view No observ ation record ed. [email or web address] Not Available 2023 10:53:50 04/16/20 24 04/14/2024 XR, cervi thu spine , 2 or 3 view No observ ation record ed. [facility] [address] [place], [address], 04/18/2024 11:22:21 04/16/20 24 04/14/2024 XR, cervi thu spine , 2 or 3 view No observ ation record ed. [facility] [address] [place], [address], 04/18/2024 12:55:18 04/18/20 24 04/14/2024 XR, cervi thu spine , 2 or 3 view No observ ation record ed. [email or web address] Not Available 2023 11:08:46 04/18/20 24 04/14/2024 XR, cervi thu spine , 2 or 3 view No observ ation record ed. [address], [address], 04/20/2024 10:07:20 Result Notes None recorded. Problems Name Problem SNOMED Code Status Onset Date Resolution Date Notes Provider Name and Address Organization Details Recorded Time Spinal stenosis in cervical region 68753294 Active DAVION De Jesus [address] [place] [address], [phone] , [facility] 4 15:19:08 Problem Notes None recorded. Procedures Surgical History Date Name Laterality Status Provider Name and Address Organization Details Recorded Time 3 total replacement of right hip joint completed Nabila Garcia [facility] 4 13:25:44 2 lumbar spinal fusion completed Nabila Garcia [facility] 02/04/2024 13:25:16 1 primary fusion of cervical spine completed Nabila Garcia [facility] 02/04/2024 13:25:01 0 shoulder surgery completed Nabila Garcia [facility] 02/04/2024 13:24:41 8 total replacement of left hip joint completed Nabila Garcia [facility] 02/04/2024 13:24:14 Imaging Results Imaging Date Name Status LastModified by Organization Details LastModified Time 12/16/2022 MRI, lumbar spine, w/o contrast completed [facility] Information not available 10/09/2023 13:15:44 10/09/2023 XR, spine, scoliosis series completed [address], [address], 10/12/2023 10:26:42 10/09/2023 XR, spine, scoliosis series completed [address], [address], 10/12/2023 10:34:03 10/20/2023 MRI, lumbar spine, w/o contrast completed [facility] ([facility] [address] [place], [address], 10/22/2023 13:51:34 10/20/2023 MRI, cervical spine, w/o contrast completed [facility] ([facility]) [address] [place], [address], 10/22/2023 13:51:35 01/13/2024 electrocardiogram completed [facility] Atention: Jose Rafael [address] [place], [address], 01/19/2024 09:17:55 01/18/2024 XR, cervical spine, 2 or 3 view completed [facility] Atention: Jose Rafael [address] [place], [address], 01/26/2024 09:52:50 02/04/2024 XR, cervical spine, 2 or 3 view completed [facility] (Medical Records) [address] [place], [address], 02/08/2024 10:04:41 02/04/2024 XR, cervical spine, 2 or 3 view completed [facility] [place] (Medical Records) [address] [place] [address], [address], 02/08/2024 10:45:46 02/04/2024 XR, lumbar spine completed Informat ion not available 02/08/2024 10:45:23 02/04/2024 XR, lumbar spine completed [email or web address] (Medical Records) [address] [place] [address], [address], 02/08/2024 10:04:41 03/03/2024 XR, cervical spine, 2 or 3 view completed [email or web address] [facility] (Medical Records) [address] [place] [address], [address], 03/04/2024 09:49:59 03/03/2024 XR, cervical spine, 2 or 3 view completed Information not available 03/04/2024 10:53:50 04/14/2024 XR, cervical spine, 2 or 3 view completed [email or web address] [address], [address], 04/18/2024 11:22:21 04/14/2024 XR, cervical spine, 2 or 3 view completed [email or web address], [address], 04/18/2024 12:55:18 04/14/2024 XR, cervical spine, 2 or 3 view completed Information not available 04/19/2024 11:08:46 04/14/2024 XR, cervical spine, 2 or 3 view completed [email or web address], [address], 04/20/2024 10:07:20 Procedure Notes None recorded. Medical Equipment None Reported. Allergies Allergen ID Allergen Name Allergen Category Reaction Reaction Severity Criticality Documentation Date Start Date Code Code System Note Provider Name and Address Organization Details Recorded Time 1291747 amoxicill in medicatio n rash Not available Not available 02/04/2024 723 RxNorm Nabila more, [facility] 4 13:23:28 7869367 morphine medicatio n rash Not available Not available 02/04/2024 7052 RxNorm Nabila more, [facility] 4 13:23:39 2622081 Vibramyci n medicatio n gi bleed Not available Not available 02/04/202400018 5 RxNorm Nabila more, [facility] 4 13:23:50 Medications Name Sig Start [...] Updated DateTime 10/09/2023 167.64 cm 35.5 kg/m2 59134.32 g Nabila Garcia [facility] 10/09/2023 14:18:33 Date Recorded Body height Body mass index (BMI) Body weight Provider Name and Address Organization Details Last Updated DateTime 02/04/2024 167.64 cm 35.5 kg/m2 75386.32 g Nabila Garcia [facility] 02/04/2024 13:14:10 Social History None recorded. Functional Status None recorded. Mental Status None recorded. Family History Nothing Reported. Medical History Condition Response arthritis Y seizure disorder Y depression Y hypertension Y anxiety disorder Y stroke Y Gynecological HistoryNo gynecological history recorded. Obstetrics History GPAL:G 0 P 0 0 0 0 Past Encounters Encounter ID Performer Location Encounter Start Date Encounter Closed Date Diagnosis/Indication Diagnosis SNOMED-CT Code Diagnosis ICD10 Code Diagnosis Note [id number] Sonido Maldonado MD [facility] [address] [address] 10/09/2023 12:17:04 10/09/2023 15:45:27 Spinal stenosis in cervical region 91230592 M48.02 We discussed the potential benefit of a revision fusion at C6-7. [id number] Sonido Maldonado MD [facility] [address] [address] 11/13/2023 13:54:32 11/13/2023 15:02:23 Spinal stenosis in cervical region 99025517 M48.02 We discussed the potential benefit of a revision fusion at C6-7. We discussed the natural history and pathophysi ology in great detail. We discussed the operative approach. We reviewed the images together. Risks and benefits were discussed in a mike and candid manner. All questions were answered. Patient wishes to proceed with surgical interventi on. I spent a total of 45 minutes during this clinical encounter. Greater than 50% of the time was devoted to counseling and coordinati ng care including review of records, pertinent lab data and studies, as well as discussing diagnostic evaluation s and work-up, planning therapeuti c interventi ons and future dispositio n of care. This included counseling the patient about their disease and diagnosis. This time included any additional research needed to obtain further informatio n in formulatin g the plan of care of this patient, and documentat ion. Please refer to the assessment and plan for details. [id number] DAVION Nuno [facility] [address] [address] 02/04/2024 12:13:22 02/04/2024 14:36:09 Spinal stenosis in cervical region 15930715 M48.02 She will resume normal activity. I recommend a course of physical therapy. She will transition from a hard collar to a soft collar today to wear as needed. All questions were answered in a mike candid manner. Follow up in 3-4 weeks with repeat cervical imaging Lumbar spondylosis [address] 0009 M47.896 I recommend she continue with conservati ve management . If pain worsens she could benefit from injections . All questions were answered. [id number] DAVION Nuno [facility] [address] [address] 03/03/2024 11:48:32 03/03/2024 12:06:03 Spinal stenosis in cervical region 23788231 M48.02 I recommend gentle increase in range of motion and exercise. I discussed the pathophysi ology and natural history in great detail. She will resume normal activity as tolerated. Follow-up as needed or interval basis. [id number] Sonido Maldonado MD [facility] [address] [address] 04/14/2024 12:10:58 04/14/2024 14:21:20 Spinal stenosis in cervical region 59550579 M48.02 She will continue to increase activity as tolerated. I recommend gentle range of motion, stretching and exercise. No restrictio ns from our perspectiv e. She will follow-up on an interval basis and or as needed Health Concerns Section Related Observation LastModified by Organization Detai ls LastModified Time None Recorded Concern Status LastModified by Organization Details LastModified Time None Recorded Advance Directives Directive None Recorded Payers Encounter Date Sequence Insurance Name Policy Number Policy Carty Covered Member ID Carty Member ID Guarantor Name 10/09/2023 1 [facility] (MEDICARE REPLACEMENT/A DVANTAGE - PPO) [id number] Nina Bella [id number] Nina Bella 10/09/2023 2 [place] [facility] Nina Bella [id number] Nina De La Cruzcha 11/13/2023 1 [facility] (MEDICARE REPLACEMENT/A DVANTAGE - PPO) [id number] Nina Bella [id number] Nina Forbesetecha 11/13/2023 2 [place] [facility] Nina Bella [id number] Nina Bear Wietecha 02/04/2024 1 [facility] (MEDICARE REPLACEMENT/A DVANTAGE - PPO) [id number] Nina Bella [id number] Nina Bear Wietecha 02/04/2024 2 [place] [facility] Nina Bella [id number] Nina oFrbesetecha 03/03/2024 1 [facility] (MEDICARE REPLACEMENT/A DVANTAGE - PPO) [id number] Nina Bella [id number] Nina Bear Wietecha 03/03/2024 2 [place] [facility] Nina Bella [id number] Nina [employer]et[employer]a 04/14/2024 1 [facility] (MEDICARE REPLACEMENT/A DVANTAGE - PPO) [id number] Nina Bella [id number] Nina De La Cruzcha 04/14/2024 2 [place] [facility] Nina Bella [id number] Nina Bella Notes Date Note Type Note [...] driving for 18 months. Sonido Maldonado MD [address] [place] [address], [phone], [facility] 10/09/2023 22:10:38 11/13/2023 text/html [...] it helps her sleep. Sonido Maldonado MD [address] [place] [address], [phone], [facility] 11/13/2023 23:09:37 02/04/2024 text/html [...] pain is improved with rest. DAVION Nuno [address] [place] [address], [phone], [facility] 02/04/2024 14:26:17 03/03/2024 text/html [...] She denies fever or chills. DAVION Nuno [address] [place], [address], [facility] 03/03/2024 12:31:51 04/14/2024 text/html Ms. Wietecha returns to the office for her post-operative [...] she is doing well. Sonido Maldonado MD [address] [place] [address], [phone], [facility] 04/14/2024 21:27:20 OBGyn Episode No OBEpisode recorded.
--- OUTSIDE RECORDS SUMMARY | 2024-10-10 14:55 | XMS_ITS | Encounter Summary ---
Author Organization [facility] Address [address] [place] [address] Care Team Providers Care Database Security Expert Name Role Phone Floyd Romero MD Primary Care Provider Reason for Referral * Imaging (Routine) - Closed Specialty Diagnoses / Procedures Referred By Contac t Referred To Contact Radiology Diagnoses Weight loss, non-intentional Right-sided abdominal pain of unknown cause Early satiety Procedures CT Abdomen Pelvis w Contrast Jaycee Hilario PA [address] [address] Referral ID Status Reason Start Date Expiration Date Visits Re quested Visits Authorized [id number] Closed 09/13/2024 09/13/2025 1 1 Reason for Visit * Imaging (Routine) - Closed Specialty Diagnoses / Procedures Referred By Contac t Referred To Contact Radiology Diagnoses Weight loss, non-intentional Right-sided abdominal pain of unknown cause Early satiety Procedures CT Abdomen Pelvis w Contrast Jaycee Hilario PA [address] [address] Referral ID Status Reason Start Date Expiration Date Visits Re quested Visits Authorized [id number] Closed 09/13/2024 09/13/2025 1 1 Encounter Details Date Type Department Care Team (Latest Contact Info) Description 09/19/2024 1:47 PM EST - 09/19/2024 11:59 PM EST Hospital Encounter [facility] CT Scan [address] [place] [address] Weight loss, non-intentional; Right-sided abdominal pain of unknown cause Discharge Disposition: Home or Self Care Social History Tobacco Use Types Packs/Day Years [...] care for your loved ones. 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 [...] on file documented as of this encounter Medications at Time of Discharge Medication Sig Dispensed Refills Start Date End Date aspirin 81 mg EC tablet Take 1 tablet (81 mg total) by mouth 1 (one) time each day. clonazePAM (KlonoPIN) 0.5 mg tablet Take 1 tablet (0.5 mg total) by mouth 2 times daily as needed. Take 1/2 tablet DULoxetine (CYMBALTA) [address] capsule Take 1 capsule (30 mg total) by mouth 1 (one) time each day. DULoxetine (CYMBALTA) [address] capsule Take 1 capsule (60 mg total) by mouth 1 (one) time each day. lamoTRIgine (LaMICtal) 200 mg tablet Take 1 tablet (200 mg total) by mouth 2 (two) times a day. risperiDONE (RisperDAL) 0.25 mg tablet Take 1 tablet (0.25 mg total) by mouth 1 (one) time each day. rosuvastatin (CRESTOR) 10 mg tablet Take 1 tablet (10 mg total) by mouth 1 (one) time each day. 90 each 08/01/2024 valsartan (DIOVAN) 40 mg tablet Take 1 tablet (40 mg total) by mouth 1 (one) time each day. 90 each 1 08/01/2024 documented as of this encounter Discharge Disposition Disposition Code Departure Means Destination Home or Self Care documented in this encounter Plan of Treatment Upcoming Encounters Date Type Department Care Team (Late st Contact Info) Description 10/17/2024 9:20 AM EST Office Visit Gastroenterology - [address] [facility] [address] [place] [phone] Jaycee Hilario PA [address] [facility] Ez[address] [place] [address] 10/27/2024 2:45 PM EST Office Visit Urogynecology - [address] [phone] Kiersten Sherwood, PAPER CUP MACHINE OPERATOR [address] [address] 11/04/2024 2:30 PM EST Treatment Pelvic Floor Rehabilitation - [address] [phone] Yessica Sanchez, PT [address] [address] 11/11/2024 11:00 AM EST Treatment Pelvic Floor Rehabilitation - [address] [phone] Yessica Sanchez, PT [address] [address] 11/18/2024 2:00 PM EDT Treatment Pelvic Floor Rehabilitation - [address] [phone] Yessica Sanchez, PT [address] [address] 11/25/2024 11:00 AM EDT Treatment Pelvic Floor Rehabilitation - [address] [phone] Yessica Sanchez, PT [address] [address] 12/02/2024 1:00 PM EDT Treatment Pelvic Floor Rehabilitation - [address] [phone] Yessica Sanchez, PT [address] [address] 12/09/2024 2:00 PM EDT Treatment Pelvic Floor Rehabilitation - [address] [phone] Yessica Sanchez, PT [address] [address] 01/31/2025 8:30 AM EDT Office Visit Adult Medicine [facility] - [address] [phone] Suyapa Saini PA [address] [place] [address] 03/21/2025 1:50 PM EDT Appointment Radiology Department - [address] [phone] documented as of this encounter Procedures Procedure Name Priority Date/Time Associated Diagnosis Comments CT ABDOMEN PELVIS W CONTRAST Routine 09/19/2024 2:05 PM EST Weight loss, non-intentional Right-sided abdominal pain of unknown cause documented in this encounter Results * CT Abdomen Pelvis w Contrast (09/19/2024 2:05 PM EST) Anatomical Region Laterality Modality Body Computed Tomogra phy 09/27/2024 9:42 AM EST Impressions 09/27/2024 9:48 AM EST Impression: No significant abnormality identified in the abdomen and pelvis. Telesalud RICARDO ([id number]) -------- FINAL REPORT -------- Dictated By: Paula Cedeño Dictated Date: 09/27/2024 09:42 ET Assigned Physician: Paula Cedeño Reviewed and Electronically Signed By: Paula Cedeño Signed Date: 09/27/2024 09:48 ET Workstation ID: [id number] Transcribed By: Self Edit Transcribed Date: 09/27/2024 09:42 ET Narrative 09/27/2024 9:48 AM EST History: Right-sided abdominal pain, nausea, early satiety and unintentional weight loss. Comparison: Right upper quadrant ultrasound 09/08/24, thoracic CTA 08/26/21 Technique: Helical volumetric imaging of the abdomen and pelvis was performed following oral contrast and during the uneventful intravenous administration of 90 cc Isovue-370. DLP: 1097.10 mGy/cm GE Adhysteriapeed VCT Iterative reconstruction technique Findings: The liver is normal in size and configuration. A 6 mm circumscribed round hypoattenuating lesion in the medial segment left lobe (image 45 series 3) is unchanged from 2020, considered benign, most likely [...] of 90 cc Isovue-370. DLP: 1097.10 mGy/cm GE Lightspeed VCT Iterative reconstruction technique Findings: The liver is normal in size and configuration. A 6 mm circumscribed roundhypoattenuating lesion in the medial segment left lobe (image 45 series 3)is unchanged from 202, considered benign, most likely [...] abnormality identified in the abdomen and pelvis. Domi RICARDO ([id number]) -------- FINAL REPORT -------- Dictated By: Paula Cedeño Dictated Date: 09/27/2024 09:42 ET Assigned Physician: Paula Cedeño Reviewed and Electronically Signed By: Paula Cedeño Signed Date: 09/27/2024 09:48 ET Workstation ID: [id number] Transcribed By: Self Edit Transcribed Date: 09/27/2024 09:42 ET Jaycee RICARDO IMG CT PROCEDURES documented in this encounter Visit Diagnoses Diagnosis Weight loss, non-intentional Loss of weight Right-sided abdominal pain of unknown cause Encounter for screening mammogram for breast cancer documented in this encounter Administered Medications Inactive Administered Medications - up to 3 most recent administrations Medication Order MAR Action Action Date Dose Rate Site barium sulfate (READI-CAT 2) 2 % (w/v) suspension 900 mL 900 mL, oral, Once in imaging, Starting on 09/19/24 at 1354, For 1 dose Given 09/19/2024 1:55 PM EST 900 mL iopamidoL (ISOVUE-370) 370 mg iodine /mL (76 %) injection 90 mL 90 mL, intravenous, Once in imaging, Starting on Thu09/19/24 at 1354, For 1 dose Given 09/19/2024 1:55 PM EST 90 mL sodium chloride 0.9 % flush 10 mL 10 mL, intravenous, Once, On Thu09/19/24 at 1415, For 1 dose Given 09/19/2024 1:55 PM EST 10 mL documented in this encounter Additional Health Concerns Assessment Noted Time PHQ-9 Depression Total Score: 11 024 12:57 PM EST documented as of this encounter Care Teams Database Security Expert Relationship Specialty Start Date End Date Floyd Romero MD [address] [place] [address] PCP - General 09/23/23 documented as of this encounter
--- OUTSIDE RECORDS SUMMARY | 2024-10-10 14:55 | XMS_ITS | Encounter Summary ---
Author Organization [facility] Address [address] [place] [address] Care Team Providers Care Clinical Support Specialist Name Role Phone Floyd Romero MD Primary Care Provider Reason for Referral * Imaging (Routine) - Closed Specialty Diagnoses / Procedures Referred By Contac t Referred To Contact Radiology Diagnoses Weight loss, non-intentional Right-sided abdominal pain of unknown cause Early satiety Procedures CT Abdomen Pelvis w Contrast Jaycee Hilario PA [address] [address] Referral ID Status Reason Start Date Expiration Date Visits Re quested Visits Authorized [id number] Closed 09/13/2024 09/13/2025 1 1 Reason for Visit * Reason Comments Follow-up Encounter Details Date Type Department Care Team ([facility] st Contact Info) Description 09/13/2024 9:00 AM EST Office Visit Gastroenterology - 299 [facility] [address] [phone] Jaycee Hilario PA [address] [address] Right-sided abdominal pain of unknown cause (Primary Dx); Weight loss, non-intentional Social History Tobacco Use Types Packs/Day Years [...] for your loved ones. For example, children's tutor or elderly care for an older adult? [...] Sign Reading Time Taken Comments Blood Pressure - - Pulse - - Temperature - - Respiratory Rate - - Oxygen Saturation - - Inhaled Oxygen Concentration - - Weight 89.4 kg (197 lb) 09/13/2024 8:55 AM EST Height 167.6 cm (5' 6 ) 09/13/2024 8:55 AM EST Body Mass Index 31.8 09/13/2024 8:55 AM EST documented in this encounter Progress Notes * DAVION Wang - 09/13/2024 9:00 AM EST CHIEF COMPLAINT: Follow-up HPI: Nina Bella is a 59 y.o. old female who was originally referred to us by Floyd Vaughan MD now presents to the gastroenterology department today for a follow up of right sided abdominal pain. Right sided abdominal pain starting in RLQ radiating up flank into RUQ under rib cage. Flares in intensity at worse 8/10. Lasts 1-5 minutes before resolving, occurs several times per day. Tried IBgard, no change. Still taking magnesium supplements. BM every 2-3 days, slower than usual. Denies hematochezia, melena, straining. Reports early satiety and decreased appetite. Eating about 1/2 of usual caloric intake. Denies vomiting but reports nausea after meals. Weight down from 205lbs to 197lbs in 6 weeks. Total of about 25lb weight loss since March 2024. Colonoscopy/EGD 07/07/2024, negative celiac workup following procedure. New symptom of full urinary incontinence, about 3x/week. Not stress-induced. Denies dysuria, gross hematuria Patient just established PCP. Had right sided THR in 2022, complicated by dislocation 2 months later, patient questions if MSK involvement due to history of complication. Answers submitted by the patient for this visit: Abdominal Pain Questionnaire (Submitted on 09/07/2024) Chief Complaint: Abdominal pain Chronicity: chronic Onset: more than 1 month ago Onset quality: undetermined Frequency: intermittently Episode duration: 1 Hours Progression since onset: waxing and waning Pain location: RLQ Pain - numeric: 6/10 Pain quality: sharp Radiates to: RUQ anorexia: Yes arthralgias: Yes belching: No constipation: Yes diarrhea: No dysuria: No flatus: No frequency: Yes headaches: Yes myalgias: Yes nausea: No weight loss: Yes vomiting: No Aggravated by: movement Relieved by: certain positions Diagnostic workup: lower endoscopy ROS: GENERAL: No malaise, significant weight loss or fever HEENT: No changes in hearing or vision, nose bleeds or swallowing problems NECK: No lumps, goiter, pain or significant neck swelling RESPIRATORY: No cough, wheezing or shortness of breath CARDIOVASCULAR: No chest pain, leg swelling or palpitations GI: See above MUSCULOSKELETAL: No joint pain or swelling, back pain, or muscle pain. SKIN: No lesions, rash or itching The remainder of the review of systems is reviewed and negative. PROBLEM LIST: Patient Active Problem List Diagnosis Adenoma of colon Anxiety and depression Gastroesophageal reflux disease Low magnesium level Other hyperlipidemia Primary hypertension PTSD (post-traumatic stress disorder) Seizures ([facility]) Class 2 severe obesity with serious comorbidity and body mass index (BMI) of 36.0 to 36.9 in adult ([facility]) History of non anemic vitamin B12 deficiency Past Medical History: Diagnosis Date Hypertension Vitamin B12 deficiency 12/24/2023 DX:Vitamin B12 deficiency Vitamin B12 deficiency 12/24/2023 Vitamin D deficiency 12/24/2023 PAST SURGICAL HISTORY: Past Surgical History: Procedure Laterality Date APPENDECTOMY PROCEDURE: HISTORICAL APPENDECTOMY SECTION, LOW TRANSVERSE 06/2002 COLONOSCOPY 03/2021 PROCEDURE: HISTORICAL COLONOSCOPY; COMMENT: Internal and external hemorrhoids, otherwise unremarkable. On a 5-year schedule due to history of adenoma greater than 10 mm COLONOSCOPY 07/07/2024 recall 5-years. ESOPHAGOGASTRODUODENOSCOPY 07/07/2024 Bx suggestive of celiac vs SIBO, labs negative for celiac. Negative h. pylori. HIP ARTHROPLASTY Bilateral 2018 PROCEDURE: HISTORICAL HIP REPLACEMENT; COMMENT: and 2022 OTHER SURGICAL HISTORY 2021 lumbar fusion OTHER SURGICAL HISTORY 2021 cervical fusion SHOULDER SURGERY Right 2019 PROCEDURE: HISTORICAL SHOULDER SURGERY; COMMENT: ? arthroscopy SOCIAL HISTORY: Social History Tobacco Use Smoking status: Former Current packs/day: 0.00 Types: Cigarettes Quit date: 09/07/2017 Years since quittin.0 Smokeless tobacco: Never Substance Use Topics Alcohol use: Not Currently FAMILY HISTORY: Family History Problem Relation Name Age of Onset Other (Other: Sepsis) Mother Prostate cancer Father Chasity HTN Hypertension Father Chasity Hypertension Sister Vioelta Hypertension Brother back issues Ovarian cancer Maternal Grandmother Pancreatic cancer Maternal Grandfather Breast cancer Paternal Grandmother 70s Heart attack Paternal Grandfather Dont know No Known Problems Son Celiac disease Daughter Alicja ACTIVE MEDICATIONS: Current Outpatient Medications Medication Sig Dispense Refill aspirin 81 mg EC tablet Take 1 [...] (one) time each day. 90 each 1 valsartan (DIOVAN) 40 mg tablet Take 1 tablet (40 mg total) by mouth 1 (one) time each day. 90 each1 No current facility-administered medications for this visit. ALLERGIES: Allergies Allergen Reactions Amoxicillin Hives and Rash rash Vibramycin [Doxycycline Calcium] Latex Itching C/O: itching C/O: itching Morphine Hives and Rash Other reaction(s): rash PHYSICAL EXAM: Visit Vitals Ht 1.676 m (66 ) Wt 89.4 kg (197 lb) BMI 31.80 kg/m?? Smoking Status Former BSA 1.99 m?? APPEARANCE: Alert and in no acute distress EYES: PERRLA, conjunctiva and sclera normal. MOUTH/THROAT: no erythema or exudates NECK: Neck supple, no adenopathy HEART: RRR with normal S1 and S2, no murmurs appreciated LUNG: clear to auscultation LYMPH NODES: grossly normal ABDOMEN: soft, tender to RLQ on palpation, non tender to RUQ, no ascites, guarding, or rebound, no organomegaly. EXTREMITIES: Extremities warm and well perfused SKIN: Skin color, texture, turgor normal. NEURO: Awake, alert and oriented, normal ROM LABS: Lab Results Component Value Date WBC 4.8 08/12/2024 HGB 13.0 08/12/2024 HCT 39.6 08/12/2024 MCV 87.6 08/12/2024 PLT 214 08/12/2024 Lab Results Component Value Date NA 143 08/12/2024 K 4.3 08/12/2024 CL 109 08/12/2024 CO2 28 08/12/2024 BUN 7 08/12/2024 CREATININE 0.93 08/12/2024 CALCIUM 9.8 08/12/2024 PROT 7.0 08/12/2024 BILITOT 0.6 08/12/2024 ALKPHOS 120 08/12/2024 ALT 14 08/12/2024 AST 15 08/12/2024 GLUCOSE 98 08/12/2024 XAMINATION: ABDOMEN ULTRASOUND, LIMITED CLINICAL INFORMATION: Right upper quadrant pain symptoms radiating to right lower quadrant COMPARISON: None. TECHNIQUE: Ultrasound of the right upper quadrant FINDINGS: QUALITY: Bowel obscures some of the pancreas PANCREAS: No suspicious abnormality of the pancreatic neck or body. Some of the pancreatic head andtail were obscured. ABDOMINAL AORTA/IVC: No abdominal aortic aneurysm demonstrated. No definite abnormality in the visualized portions of the IVC. LIVER: The right lobe of the liver measures 15.6 cm. The background hepatic echotexture is slightlycoarsened. The portal tracts are visualized. The liver [...] Signed Date: 09/13/2024 11:33 ET Workstation ID: [id number] Transcribed By: Self Edit Transcribed Date: 09/13/2024 11:31 ET Assessment/Plan Assessment & Plan Right-sided abdominal pain of unknown cause Ddx appendicitis vs IBS vs genitourinary origin (mass/endometriosis/fibroid) vs MSK vs malignancy Ordering CT scan to further evaluate given continued weight loss, early satiety/loss of appetite, and continued abdominal pain Consider adding Miralax or fiber supplement to magnesium supplements for promoting BMs. Discussed constipation may be contributing. IBgard not helpful for pain, did discuss dicyclomine, will hold off at this time given constipationconcern. Patient just established PCP care, advised patient to follow up for further evaluation of urinary symptoms, possible OBGYN involvement, and MSK concerns. Orders: CT Abdomen Pelvis w Contrast; Future Basic metabolic panel; Future Weight loss, non-intentional Increase caloric intake. Gave samples of ensure protein shakes to use daily for increasing calories. Drink in AM or sip throughout day if unable to tolerate large volume at once. Orders: CT Abdomen Pelvis w Contrast; Future Basic metabolic panel; Future Follow up in about 4 weeks (around 10/11/2024) for Recheck. Gastroenterology and Hepatology Practice [facility] [email or web address] [phone] [address] [facility] [place] [address] DAVION Wang documented in this encounter Plan of Treatment Upcoming Encounters Date Type Department Care Team (Late st Contact Info) Description 10/17/2024 9:20 AM EST Office Visit Gastroenterology - 299 [place] 299 [facility] [address] [place] [phone] Jaycee Hilario PA 299 [facility] [address] [place] [address] 10/27/2024 2:45 PM EST Office Visit Urogynecology - [address] [phone] Kiersten Sherwood, ACADEMIC AFFAIRS VICE PRESIDENT [address] [address] 11/04/2024 2:30 PM EST Treatment Pelvic Floor Rehabilitation - [address] [phone] Yessica Sanchez, PT [address] [address] 11/11/2024 11:00 AM EST Treatment Pelvic Floor Rehabilitation - [address] [phone] Yessica Sanchez, PT [address] [address] 11/18/2024 2:00 PM EDT Treatment Pelvic Floor Rehabilitation - [address] [phone] Yessica Sanchez, PT [address] [address] 11/25/2024 11:00 AM EDT Treatment Pelvic Floor Rehabilitation - [address] [phone] Yessica Sanchez, PT [address] [address] 12/02/2024 1:00 PM EDT Treatment Pelvic Floor Rehabilitation - [address] [phone] Yessica Sanchez, PT [address] [address] 12/09/2024 2:00 PM EDT Treatment Pelvic Floor Rehabilitation - [address] [phone] Yessica Sanchez, PT [address] [address] 01/31/2025 8:30 AM EDT Office Visit Adult Medicine [address] [phone] Suyapa Saini PA [address] [place] [address] 03/21/2025 1:50 PM EDT Appointment Radiology Department - [address] [phone] documented as of this encounter Results * CT Abdomen Pelvis w Contrast (09/19/2024 2:05 PM EST) Anatomical Region Laterality Modality Body Computed Tomogra phy 09/27/2024 9:42 AM EST Impressions 09/27/2024 9:48 AM EST Impression: No significant abnormality identified in the abdomen and pelvis. Telerad DAVION ([id number]) -------- FINAL REPORT -------- Dictated By: Paula Cedeño Dictated Date: 09/27/2024 09:42 ET Assigned Physician: Paula Cedeño Reviewed and Electronically Signed By: Paula Cedeño Signed Date: 09/27/2024 09:48 ET Workstation ID: [id number] Transcribed By: Self Edit Transcribed Date: 09/27/2024 09:42 ET Narrative 09/27/2024 9:48 AM EST History: Right-sided abdominal pain, nausea, early satiety and unintentional weight loss. Comparison: Right upper quadrant ultrasound 09/08/24, thoracic CTA 08/26/21 Technique: Helical volumetric imaging of the abdomen and pelvis was performed following oral contrast and during the uneventful intravenous administration of 90 cc Isovue-370. DLP: 1097.10 mGy/cm GE Pegg'dpeed VCT Iterative reconstruction technique Findings: The liver [...] 13 cm in maximum diameter, unchanged from 2020. The pancreas and adrenal glands are unremarkable. [...] 90 cc Isovue-370. DLP: 1097.10 mGy/cm GE Pegg'dpeed VCT Iterative reconstruction technique Findings: The liver [...] approximately 13 cm in maximum diameter,unchanged from 2020. The pancreas and adrenal glands are unremarkable. [...] in the abdomen and pelvis. Domi RICARDO ([id number]) -------- FINAL REPORT -------- Dictated By: Paula Cedeño Dictated Date: 09/27/2024 09:42 ET Assigned Physician: Paula Cedeño Reviewed and Electronically Signed By: Paula Cedeño Signed Date: 09/27/2024 09:48 ET Workstation ID: [id number] Transcribed By: Self Edit Transcribed Date: 09/27/2024 09:42 ET Jaycee RICARDO IMG CT PROCEDURES * Basic metabolic panel (09/15/2024 9:58 AM EST) Sodium 136 133 - 145 mmol/L LAB CHEMISTRY METHOD 09/15/2024 12:40 PM [facility] Potassium 4.1 3.5 - 5.5 mmol/L LAB CHEMISTRY METHOD 09/15/2024 12:40 PM EST [facility] Chloride 102 96 - 110 mmol/L LAB CHEMISTRY METHOD 09/15/2024 12:40 PM [facility] CO2 27 21 - 32 mmol/L LAB CHEMISTRY METHOD 09/15/2024 12:40 PM [facility] Anion Gap 7 3 - 11 LAB CHEMISTRY METHOD 09/15/2024 12:40 PM [facility] Glucose 91 70 - 100 mg/dL LAB CHEMISTRY METHOD 09/15/2024 12:40 PM [facility] BUN 14 5 - 25 mg/dL LAB CHEMISTRY METHOD 09/15/2024 12:40 PM [facility] Creatinine 0.90 0.50 - 1.10 mg/dL LAB CHEMISTRY METHOD 09/15/2024 12:40 PM EST [facility] eGFR 74 >=60 mL/min/1. 73m2 LAB CHEMISTRY METHOD 09/15/2024 12:40 PM [facility] Comment:Calculation based on the??Chronic Kidney Disease Epidemiology Collaboration (CKD-EPI) equation refit??without adjustment for race. BUN/Creatinine Ratio 15.6 LAB CHEMISTRY METHOD 09/15/2024 12:40 PM [facility] Calcium 9.9 8.5 - 10.5 mg/dL LAB CHEMISTRY METHOD 09/15/2024 12:40 PM [facility] Blood Venous blood specimen / Unknown Venipuncture / Unknown 09/15/2024 9:58 AM EST 09/15/2024 10:35 AM EST Jaycee RICARDO LAB BLOOD ORDERABLES [facility] 299 [place], [place] [address] [phone] documented in this encounter Visit Diagnoses Diagnosis Right-sided abdominal pain of unknown cause- Primary Weight loss, non-intentional Loss of weight Weight loss, non-intentional Loss of weight Right-sided abdominal pain of unknown cause Encounter for screening mammogram for breast cancer documented in this encounter Additional Health Concerns Assessment Noted Time PHQ-9 Depression Total Score: 11 024 12:57 PM EST documented as of this encounter Care Teams Clinical Support Specialist Relationship Specialty Start Date End Date Floyd Romero MD [address] [place] [address] PCP - General 09/23/23 documented as of this encounter
--- OUTSIDE RECORDS SUMMARY | 2024-10-10 14:56 | XMS_ITS | Encounter Summary ---
Author Organization [facility] Address [address] [place] [address] Care Team Providers Care Treasury Analyst Name Role Phone Diana Martinez Primary Care Provider [phone] Carl Goodman MD Unavailable Osmar Chicas MD Unavailable Encounter Details Date Type Department Care Team (Late st Contact Info) Description 06/19/2022 Erroneous Encounter [facility] CONVERSION DEPT [address] [place] [address] Brian Chong APRN [address] [place] [address] Social History Tobacco Use Types Packs/Day Years [...] on filedocumented in this encounter Care Teams Treasury Analyst Relationship Specialty Start Date End Date Diana Martinez PA [address] [place] [id number] PCP - General 01/03/22 Carl Goodman MD [address] [address] Surgery, Orthopedic 01/03/22 Osmar Chicas MD [address] [place] [address] Cardiovascular Disease 01/03/22 documented as of this encounter
--- OUTSIDE RECORDS SUMMARY | 2024-10-10 14:56 | XMS_ITS | Encounter Summary ---
Author Organization [facility] Address [address] [place] [address] Care Team Providers Care Software Project Manager Name Role Phone Diana Martinez Primary Care Provider + [phone] Carl Goodman MD Unavailable Osmar Chicas MD Unavailable [phone] Encounter Details Date Type Department Care Team (Late st Contact Info) Description 09/10/2023 Scanned Document [facility] Department of Internal Medicine [place] [address] [place] [address] Diana Martinez PA [address] [place] [address] Social History Tobacco Use Types Packs/Day Years [...] on filedocumented in this encounter Care Teams Software Project Manager Relationship Specialty Start Date End Date Diana Martinez PA [address] [place] [id number] PCP - General 01/03/22 Carl Goodman MD [address] [address] Surgery, Orthopedic 01/03/22 Osmar Chicas MD [address] [place] [address] Cardiovascular Disease 01/03/22 documented as of this encounter
--- OUTSIDE RECORDS SUMMARY | 2024-10-10 14:56 | XMS_ITS | Encounter Summary ---
Author Organization [facility] Address [address] [place] [address] Care Team Providers Care Separator Operator Name Role Phone Diana Martinez Primary Care Provider + [phone] Carl Goodman MD Unavailable Osmar Chicas MD Unavailable [phone] Encounter Details Date Type Department Care Team (Late st Contact Info) Description 08/25/2023 Scanned Document [facility] Department of Internal Medicine [place] [address] [place] [address] Diana Martinez PA [address] [place] [address] Social History Tobacco Use Types Packs/Day Years [...] on filedocumented in this encounter Care Teams Separator Operator Relationship Specialty Start Date End Date Diana Martinez PA [address] [place] [phone] PCP - General 01/03/22 Carl Goodman MD [address] [address] Surgery, Orthopedic 01/03/22 Osmar Chicas MD [address] [place] [address] Cardiovascular Disease 01/03/22 documented as of this encounter
--- OUTSIDE RECORDS SUMMARY | 2024-10-10 14:56 | XMS_ITS | Encounter Summary ---
Author Organization [facility] Address [address] [place] [address] Care Team Providers Care Plating Operator Name Role Phone Brian Chong APRN Primary Care Provider [phone] Diana Martinez Primary Care Provider + [phone] Carl Goodman MD Unavailable Osmar Chicas MD Unavailable [phone] Encounter Details Date Type Department Care Team (Late st Contact Info) Description 10/04/2018 Scanned Document [facility] [place] at [address] [address] Spine Surgery, Scan Social History Tobacco Use Types Packs/Day Years Used Date Smoking Tobacco: Never Assessed Sex and Gender Information Value Date Recorded Sex Assigned at Not on file Gender Identity Not on file Sexual Orientation Not on file documented as of this encounter Plan of Treatment Not on file documented as of this encounter Procedures Procedure Name Priority Date/Time Associated Diagnosis Comments BOOKING SHEETS-SCAN 10/04/2018 documented in this encounter Results * BOOKING SHEETS-SCAN (10/04/2018) Scan Spine Surgery HX AMB PROCEDURES documented in this encounter Visit Diagnoses Not on filedocumented in this encounter Care Teams Plating Operator Relationship Specialty Start Date End Date Brian Chong APRN [address] [place] [address] PCP - General Adult Health - PA/APNP/[employer] OFFICER/HANGER 09/29/18 01/02/22 Diana Martinez PA [address] [place] [address] PCP - General 01/03/22 Carl Goodman MD [address] [place] [address] Surgery, Orthopedic 01/03/22 Osmar Chicas MD [address] [facility] [address] [place] [phone] Cardiovascular Disease 01/03/22 documented as of this encounter
--- OUTSIDE RECORDS SUMMARY | 2024-10-10 14:56 | XMS_ITS | Encounter Summary ---
Author Organization [facility] Address [address] [place] [address] Care Team Providers Care Business Services Clerk Name Role Phone Diana Martinez Primary Care Provider [phone] Carl Goodman MD Unavailable Osmar Chicas MD Unavailable [phone] Encounter Details Date Type Department Care Team (Late st Contact Info) Description 12/18/2022 Scanned Document [facility] Department of Internal Medicine [place] [address] [place] [address] Diana Martinez PA [address] [place] [address] Social History Tobacco Use Types Packs/Day Years Used Date Smoking Tobacco: Former Cigarettes Q uit: 2000 Smokeless Tobacco: Never Alcohol Use Standard Drinks/Week Comments Not Currently 0 (1 standard drink = 0.6 oz pur e alcohol) Sex and Gender Information Value Date Recorded Sex Assigned at Not on file Gender Identity Not on file Sexual Orientation Not on file COVID-19 Exposure Response Date Recorded In the last 10 days, have yo u been in contact with someone who was confirmed or suspected to have Coronavirus/COVID-19? No / Unsure 12/16/2022 7:02 AM EDT documented as of this encounter Plan of Treatment Not on file documented as of this encounter Visit Diagnoses Not on filedocumented in this encounter Care Teams Business Services Clerk Relationship Specialty Start Date End Date Diana Martinez PA [address] [place] [address] PCP - General 01/03/22 Carl Goodman MD [address] [address] Surgery, Orthopedic 01/03/22 Osmar Chicas MD [address] [place] [address] Cardiovascular Disease 01/03/22 documented as of this encounter
--- OUTSIDE RECORDS SUMMARY | 2024-10-10 14:56 | XMS_ITS | Encounter Summary ---
Author Organization [facility] Address [address] [place] [address] Care Team Providers Care House Carpenter Helper Name Role Phone Diana Martinez Primary Care Provider [phone] Carl Goodman MD Unavailable Osmar Chicas MD Unavailable [phone] Encounter Details Date Type Department Care Team (Late st Contact Info) Description 11/12/2022 Scanned Document [facility] Department of Internal Medicine [place] [address] [place] [address] Diana Martinez PA [address] [place] [address] Social History Tobacco Use Types [...] suspected to have Coronavirus/COVID-19? No / Unsure 11/06/2022 2:53 PM EST documented as of this encounter Plan of Treatment Not on file documented as of this encounter Visit Diagnoses Not on filedocumented in this encounter Care Teams House Carpenter Helper Relationship Specialty Start Date End Date Diana Martinez PA [address] [place] [address] PCP - General 01/03/22 Carl Goodman MD [address] [address] Surgery, Orthopedic 01/03/22 Osmar Chicas MD [address] [place] [address] Cardiovascular Disease 01/03/22 documented as of this encounter
--- OUTSIDE RECORDS SUMMARY | 2024-10-10 14:56 | XMS_ITS | Encounter Summary ---
Author Organization [facility] Address [address] [place] [address] Care Team Providers Care Breeding Technician Name Role Phone Diana Martinez Primary Care Provider +1- [phone] Carl Goodman MD Unavailable Osmar Chicas MD Unavailable [phone] Encounter Details Date Type Department Care Team (Late st Contact Info) Description 12/01/2022 Scanned Document [facility] Department of Internal Medicine [place] [address] [place] [address] Diana Martinez PA [address] [place] [address] Social History Tobacco Use Types [...] on filedocumented in this encounter Care Teams Breeding Technician Relationship Specialty Start Date End Date Diana Martinez PA [address] [place] [address] PCP - General 01/03/22 Carl Goodman MD [address] [address] Surgery, Orthopedic 01/03/22 Osmar Chicas MD [address] [place] [address] Cardiovascular Disease 01/03/22 documented as of this encounter
--- OUTSIDE RECORDS SUMMARY | 2024-10-10 14:56 | XMS_ITS | Encounter Summary ---
Author Organization [facility] Address [address] [place] [address] Care Team Providers Care Tractor Sweeper Driver Name Role Phone Diana Martinez Primary Care Provider + [phone] Carl oGodman MD Unavailable Osmar Chicas MD Unavailable [phone] Encounter Details Date Type Department Care Team (Late st Contact Info) Description 05/28/2023 Scanned Document [facility] Department of Internal Medicine [place] [address] [place] [address] Diana Martinez PA [address] [place] [address] Social History Tobacco Use Types Packs/Day Years [...] on filedocumented in this encounter Care Teams Tractor Sweeper Driver Relationship Specialty Start Date End Date Diana Martinez PA [address] [place] [phone] PCP - General 01/03/22 Carl Goodman MD [address] [address] Surgery, Orthopedic 01/03/22 Osmar Chicas MD [address] [place] [address] Cardiovascular Disease 01/03/22 documented as of this encounter
--- OUTSIDE RECORDS SUMMARY | 2024-10-10 14:56 | XMS_ITS | Encounter Summary ---
Author Organization [facility] Address [address] [place] [address] Care Team Providers Care Boilerhouse Mechanic Name Role Phone Diana Martinez Primary Care Provider + [phone] Carl Goodman MD Unavailable Osmar Chicas MD Unavailable [phone] Encounter Details Date Type Department Care Team (Late st Contact Info) Description 02/10/2023 Scanned Document [facility] Department of Internal Medicine [place] [address] [place] [address] Diana Martinez PA [address] [place] [address] Social History Tobacco Use Types Packs/Day Years [...] on filedocumented in this encounter Care Teams Boilerhouse Mechanic Relationship Specialty Start Date End Date Diana Martinez PA [address] [place] [id number] PCP - General 01/03/22 Carl Goodman MD [address] [address] Surgery, Orthopedic 01/03/22 Osmar Chicas MD [address] [place] [address] Cardiovascular Disease 01/03/22 documented as of this encounter
--- OUTSIDE RECORDS SUMMARY | 2024-10-10 14:56 | XMS_ITS | Encounter Summary ---
Author Organization [facility] Address [address] [place] [address] Care Team Providers Care Audit Officer Name Role Phone Floyd Romero MD Primary Care Provider Encounter Details Date Type Department Care Team (Latest Contact Info) Description 09/30/2024 9:00 AM EST Treatment Pelvic Floor Rehabilitation [address] [id number] Yessica Sanchez, PT [address] [place] [address] Urinary incontinence, unspecified type (Primary Dx); Constipation, unspecified constipation type; Urgency of urination; Pelvic pain; Muscle spasm; Muscle weakness Social History Tobacco Use Types Packs/Day Years [...] for your loved ones. For example, child nutrition manager or elderly care for an older adult? [...] as of this encounter Progress Notes * Yessica Sanchez, PT - 09/30/2024 9:00 AM EST Images from the original note were not included. If you are having difficulty having a bowel movement (e.g. having to strain, feeling like you cannot completely empty your bowels), consider elevating your feet on a stool or Squatty Potty to help relax your muscles and make it easier to go. As much as possible, you want to avoid pushing or straining to void your bowel or bladder. Breathe deeply into your abdomen while leaning forward, and relax your bottom and pelvic floor muscles as you exhale. If you are not successful after 10 minutes, get up and try again later. What is urinary urgency? Normally the bladder expands steadily as it fills, until an appropriate time and place for the process of emptying. Then the sphincter which has been holding the bladder outlet closed is opened and the muscles in the bladder contract and squeeze the urine out. The bladder then relaxes again for theprocess of refilling. It is normal to pass water four to eight times a day, including once or perhaps twice at night. Some people find their bladders do not work like this. Instead, the muscles are liable to contract uncontrollably at the wrong time. If you have an overactive bladder, you may feel very little warning of the need to pass urine and this is called ???urgency???. Some people have difficulty in making it to the toilet on time because their bladder gives them little warning, which may result in urine leaking. This is called ???urge incontinence.' What are urge suppression techniques and how might they help? Panic and fear of leaking can often make the feelings of urgency worse. Urge suppression techniquescan be used to help you regain bladder control. Many people with urgency will get into the habit ofgoing to the toilet too often - trying to make sure they are never ???caught short???. This can make the problem of urgency even worse. The bladder gets used to holding less urine, so it becomes evenmore sensitive. The suggestions below may help you to retrain your bladder and may help you reach the toilet in time. Remove cause of urgency, for example turning off taps or taking hands out of water. Stand still and cross your legs, if possible. Contract your pelvic floor muscle for up to 20 seconds. Think of or do something else, for example a crossword or stop and look in a shop window. Stand on tip-toes or change position. Contract buttock muscles when standing. Sit on the edge of a hard chair or press your spine against the back of a chair to relax the abdominal muscles for 60 seconds until the urge subsides. Try relaxed belly breathing. Stay calm. Do not try and cm to the toilet ???mid-urge???. Try and reduce your caffeine intake as this may irritate your bladder. Stopping or reducing smoking may help. Drink adequate fluids - aim for 50-64 ounces per day. Avoid food and drinks which are known to irritate the bladder, such as citric juices and spicy food. Do not cut down the amount you drink - this makes your urine even more concentrated and can make bladder problems worse. Avoid constipation. If the urge persists after practicing these steps and you feel you must go to the bathroom, then itis important you: Walk slowly and calmly to the toilet Maintain calm breathing Refrain from undressing until you are standing over the toilet Do not cm to the toilet as this will only encourage strong bladder urges and leaking. Bladder retraining takes time and determination. A cure does not happen overnight, but it can be very successful if you persevere. * Yessica Sanchez PT - 09/30/2024 9:00 AM EST PELVIC FLOOR PHYSICAL THERAPY NEW PATIENT EVALUATION PATIENT: Nina Bella : 1965 VISIT NUMBER: 1 VISIT DATE: 09/30/24 MEDICAL HISTORY: Past Medical History: Diagnosis Date Epilepsy (CMS/HCC) Hypertension Stroke (CMS/HCC) Vitamin B12 deficiency 12/24/2023 DX:Vitamin B12 deficiency Vitamin B12 deficiency 12/24/2023 Vitamin D deficiency 12/24/2023 SURGICAL HISTORY: Past Surgical History: Procedure Laterality Date APPENDECTOMY PROCEDURE: HISTORICAL APPENDECTOMY CERVICAL FUSION SECTION, LOW TRANSVERSE 06/2002 COLONOSCOPY 03/2021 PROCEDURE: [...] PROCEDURE: HISTORICAL SHOULDER SURGERY; COMMENT: ? arthroscopy MEDICATIONS: Current Outpatient Medications: aspirin 81 mg EC tablet, Take 1 tablet (81 mg total) by mouth 1 (one) time each day., Disp: , Rfl: clonazePAM (KlonoPIN) 0.5 mg tablet, Take 1 tablet (0.5 mg total) by mouth 2 times daily as needed.Take 1/2 tablet, Disp: , Rfl: DULoxetine (CYMBALTA) [address] capsule, Take 1 capsule (30 mg total) by mouth 1 (one) time each day., Disp: , Rfl: DULoxetine (CYMBALTA) [address] capsule, Take 1 capsule (60 mg total) by mouth 1 (one) time each day., Disp: , Rfl: lamoTRIgine (LaMICtal) 200 mg tablet, Take 1 tablet (200 mg total) by mouth 2 (two) times a day., Disp: , Rfl: risperiDONE (RisperDAL) 0.25 mg tablet, Take 1 tablet (0.25 mg total) by mouth 1 (one) time each day., Disp: , Rfl: rosuvastatin (CRESTOR) 10 mg tablet, Take 1 tablet (10 mg total) by mouth 1 (one) time each day., Disp: 90 each, Rfl: 1 valsartan (DIOVAN) 40 mg tablet, Take 1 tablet (40 mg total) by mouth 1 (one) time each day., Disp:90 each, Rfl: 1 ALLERGIES: Allergies Allergen Reactions Amoxicillin Hives and Rash rash Vibramycin [Doxycycline Calcium] Latex Itching C/O: itching C/O: itching Morphine Hives and Rash Other reaction(s): rash CHIEF COMPLAINT: pelvic pain, mixed urinary incontinence, bowel dysfunction HISTORY OF PRESENT ILLNESS: Nina is a(n) 59 y.o. female who presents for PFPT evaluation as requested by Leatha Sherwood APRN secondary to pelvic pain, mixed urinary incontinence, and bowel dysfunction. Pt reports that in 2022 she began to notice urinary urgency and difficulty holding her urine, whichhas worsened over time. She recently lost 50lbs (no known cause), and since then the urgency has improved slightly and she reports now being able to engage her pelvic floor muscles. She continues to have urge to void multiple times per hour, leakage on the way to the restroom, and urgency and leakage with position changes (e.g. bed mobility) and sit to stands. She currently empties her bowels 1-2x/week, currently under the care of a GI. Her stools are hard as a rock and often painful to pass because they are so large. She endorses need to strain and to splint. Pt has a history of cervical fusion and lumbar fusion (L3-5). She has also had bilateral hip replacements (R anterior approach, L posterior approach) with dislocation of the R hip prosthesis in an accident in 2018. She experiences occasional pain radiating from her RLQ to her ribcage; imaging is unremarkable. 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 No Dyspareunia: No Urinary Symptoms: Daytime frequency: several times per hour Nocturia: 2x/night, poor sleeper, + DEBRA Urgency: Yes Urgency Urinary incontinence: Yes unable to wait if someone is in the bathroom she will void in a plastic container Stress urinary incontinence: Yes Positional incontinence: Yes Coital incontinence: No Insensible loss: Yes Nocturnal enuresis: No Post void dribbling: Yes Incomplete emptying: Yes How often is unintentional urine loss: Several times each day Fluid intake: water, occasional soda, lemonade, coffee Garment protection: 2 pads per day Bowel Symptoms: Fecal incontinence: No Urgency: No Frequency of bowel movements: 2x/week [place] type: Type 2 - Lumpy and sausage like Need to strain: Yes Need to splint: Yes Able to empty completely: No - 80% of BMs feel incomplete Pain Assessment: Location: R>L groin, low back Intensity: 6 Pain type: cramping, shooting, sharp Aggravating factors: lifting/bending, changing positions, turning a certain way Alleviating factors: laying down OBJECTIVE GAIT: significant abductor lurch to right side, minimal arm swing, intoeing L>R, POSTURE Moderate FHP, decreased cervical lordosis (secondary to fusion), increased upper>mid-thoracic kyphosis, high hinge point at T/L junction, R IC elevated BREATHING ASSESSMENT Accessory mm use: Yes: scalenes, SCM, pec minor, paraspinals Back body expansion: poor Lateral rib cage expansion: fair RANGE OF MOTION Lumbar spine active range of motion: Loss of Motion Pain Flexion [] Within Normal Limits [] Minimal [x] Moderate [] Major [x] Yes [] No Extension [] Within Normal Limits [] Minimal [x] Moderate [] Major [x] Yes [] No Right Sidebend [] Within Normal Limits [x] Minimal [] Moderate [] Major [] Yes [] No Left Sidebend [] Within Normal Limits [] Minimal [x] Moderate [] Major [] Yes [] No Right Rotation [] Within Normal Limits [] Minimal [x] Moderate [] Major [] Yes [] No Left Rotation [] Within Normal Limits [] Minimal [] Moderate [x] Major [] Yes [] No Comments: Thoracic extension lacking 20 degrees Hip ROM LEFT RIGHT Comments Flexion WFL To ~90 degrees, spasm end feel Extension WFL WFL Adduction WFL WFL Abduction WFL Decreased 75% - adductor spasm Feels like my hip [R] is going to dislocate Internal Rotation Not formally tested Not formally tested Secondary to B THR External Rotation WFL WFL STRENGTH Trunk Strength: Upper abdominals: grossly WFL Lower abdominals: 1/5 Hip Strength: Formal assessment deferred; grossly 3-/5 hip abduction and 3/5 hip extension bilat ABDOMINAL WALL Scarring present: Yes: well healed ; gross restriction in all planes Rib flare present: No Diastasis Rectus Abdominis present: No PELVIC FLOOR EXAMINATION Exam deferred today as she was evaluated yesterday in clinic and experienced moderate pain post. Findings are as follows: Pelvic examination, performed with a speculum and chaperoned by diploma medical assistant External Genitalia: Normal architecture, without lesions. No [...] prolapse noted: no Levator Ani Contraction: flicker (09/11): Trace but instant contraction: <1 second Levator Ani Tone: normal and able to relax Levator Ani Tenderness: levator bilateral R>L Rectovaginal: normal Anal Sphincter: Resting Tone: 3 - normal Squeeze Strength: 4 - elevated tone, snug Sphincter Defect: no Pt reporting pain radiating to right pelvis post exam. Saddle Sensory Exam (S2-4): normal PROBLEM LIST - Urinary incontinence, mixed - Pelvic pain/pelvic floor myalgia - Constipation - Muscle weakness - Postural dysfunction - Decreased hip and trunk mobility PHYSICAL THERAPY ASSESSMENT Nina Bella is a 59 y.o. female referred for PFPT evaluation secondary to mixed urinary incontinence, and bowel dysfunction. She presents today with gait abnormality, decreased trunk and hip ROM, muscle spasm and guarding, muscle weakness, and postural dysfunction. Formal pelvic floor assessment was deferred at this time as she was evaluated in office just yesterday, however clinical presentation is consistent with high-tone pelvic floor dysfunction leading to dysfunctional voiding, urinary urgency, incontinence, and pain. Patient will benefit from Physical Therapy treatment to address impairments and improve function and quality of life. PROGNOSIS: Fair. Patient should benefit from skilled PT intervention. PHYSICAL THERAPY GOALS SHORT TERM GOALS Time frame to achieve: 2-3 weeks Patient will increase voiding intervals from 30 minutes to 1 hour within 2 weeks in order to decrease voiding frequency and interruption during work. Patient will decrease intake of bladder irritants to no more than 3/wk within 3 weeks in order to decrease urinary urgency/frequency and associated social anxiety. Pt will demonstrate appropriate 360 degree/diaphragmatic breathing to facilitate relaxation of the pelvic floor for improved emptying of bowel and bladder ESCALATOR ATTENDANT GOALS Time frame to achieve: 6 weeks Patient will demo an independent PFM contraction from 1/5 to 3/5 MMT without overflow muscle activity with verbal cues only in order to progress pelvic floor strength and improve continence. Patient will report 50% decrease in UI episodes in order to decrease social anxiety. Pt will demo independence w/home tools for stretching and spasm reduction/management. Pt will demonstrate thoracic extension and rotation AROM to at least 50% to improve postural variability and optimize management of intra-abdominal pressure Pt will report feeling empty after a bowel movement at least 50% of the time TREATMENT PLAN Frequency and duration: 1x/week for 6 weeks Plan: Manual and exercise-based therapies will be provided throughout treatment. This is including but not limited to: biofeedback, electrical stimulation, neuromuscular re-education, therapeutic exercise, therapeutic activities, manual therapies, postural retraining, and use of trigger point wandsand/or dilators; MFR to hypertonic/overactive tissues, METs to facilitate neutral lumbopelvic and sacral alignment for optimal pelvic floor and myofascial tension. TE/NR/TA to include downtraining stretches; hip, lumbar spine, and thoracic spine mobility. Home exercises will be given and monitored via patient education programming. Patient will be educated throughout the treatment plan to ensure that they understand their condition, lifestyle modifications, and instructions as to how to progress and work towards optimizing function and quality of life. INTERVENTIONS Self Care/Home Management (15 minutes) - Education was provided on: anatomy and physiology of pelvic floor muscles, relationship between the pelvic floor and core/ hip muscular anatomy (including diaphragm), physiology of micturition, normal bowel/ bladder function, and the role of the pelvic floor muscles with voiding. Utilized pictures and diagrams to improve comprehension. - Discussed constipation management; encouraged her to adhere to recommendations made by LORETTA Sherwood (e.g. Miralax and Colace). She expressed some concern that consistent use of Miralax at 1 cap full/day causes diarrhea, but 1/2 cap full doesn't help. Encouraged alternating days of full vs half dose. - Discussed toilet posture and defecatory mechanics. Encouraged her to lean forward and/or utilize a small step stool to facilitate relaxation of the PFM - Discussed treatment progression, which will likely include internal and external myofascial techniques. Introduced the concept of using vaginal dilators for stretching, massage, and mobilization ofthe PFM as pain reduces Therapeutic Activity (15 minutes) - Reviewed and practiced initial HEP, modifications made PRN. Stressed the importance of avoiding pushing into painful ranges of motion. Access Code: [email or web address] URL: [email or web address] Date: 09/30/2024 Prepared by: Yessica Sanchez Exercises - Supine Diaphragmatic Breathing - 3 x daily - 7 x weekly - 20 reps - Supine Single Knee to Chest Stretch - 1 x daily - 7 x weekly - 3 reps - 30 hold - Sidelying Mid Thoracic Rotation - 1 x daily - 7 x weekly - 10 reps - Hooklying Isometric Hip Abduction with Belt - 2 x daily - 7 x weekly - 10 reps - 5 hold - Doorway Pec Stretch at 60 Elevation - 1 x daily - 7 x weekly - 3 reps - 30 hold - Standing 'L' Stretch at Counter - 1 x daily - 7 x weekly - 3 reps - 30 hold A total of 60 minutes was spent [id number] with the patient. Yessica Sanchez, PT, DPT, PCES 09/30/24 documented in this encounter Plan of Treatment Upcoming Encounters Date Type Department Care Team (Late st Contact Info) Description 10/17/2024 9:20 AM EST Office Visit Gastroenterology - [address] [facility] [address] [place] [phone] Jaycee Hilario PA [address] [facility] [address] [place] [address] 10/27/2024 2:45 PM EST Office Visit Urogynecology - [address] [phone] Kiersten Sherwood CHARGE HAND [address] [address] 11/04/2024 2:30 PM EST Treatment Pelvic Floor Rehabilitation - [address] [phone] Yessica Sanchez, PT [address] [address] 11/11/2024 11:00 AM EST Treatment Pelvic Floor Rehabilitation - [address] [phone] Yessica Sanchez, PT [address] [address] 11/18/2024 2:00 PM EDT Treatment Pelvic Floor Rehabilitation - [address] [phone] Yessica Sanchez, PT [address] [address] 11/25/2024 11:00 AM EDT Treatment Pelvic Floor Rehabilitation - [address] [phone] Yessica Sanchez, PT [address] [address] 12/02/2024 1:00 PM EDT Treatment Pelvic Floor Rehabilitation - [address] [phone] Yessica Sanchez, PT [address] [address] 12/09/2024 2:00 PM EDT Treatment Pelvic Floor Rehabilitation - [address] [phone] Yessica Sanchez, PT [address] [address] 01/31/2025 8:30 AM EDT Office Visit [facility] - [address] [phone] Suyapa Saini PA [address] [place] [address] 03/21/2025 1:50 PM EDT Appointment Radiology Department - [address] [phone] documented as of this encounter Visit Diagnoses Diagnosis Urinary incontinence, unspecified type- Primary Constipation, unspecified constipation type Urgency of urination Pelvic pain Muscle spasm Spasm of muscle Muscle weakness Muscle weakness (generalized) Encounter for screening mammogram for breast cancer documented in this encounter Additional Health Concerns Assessment Noted Time PHQ-9 Depression Total Score: 11 024 12:57 PM EST documented as of this encounter Care Teams Audit Officer Relationship Specialty Start Date End Date Floyd Romero MD [address] [place] [address] PCP - General 09/23/23 documented as of this encounter
--- OUTSIDE RECORDS SUMMARY | 2024-10-10 14:56 | XMS_ITS | Encounter Summary ---
Author Organization [facility] Address [address] [place] [address] Care Team Providers Care Rubber Cutting Machine Tender Name Role Phone Diana Martinez Primary Care Provider +1- [phone] Carl Goodman MD Unavailable Osmar Chicas MD Unavailable [phone] Encounter Details Date Type Department Care Team (Late st Contact Info) Description 12/15/2022 Scanned Document [facility] Department of Internal Medicine [place] [address] [place] [address] Diana Martinez PA [address] [place] [address] Social History Tobacco Use Types [...] on filedocumented in this encounter Care Teams Rubber Cutting Machine Tender Relationship Specialty Start Date End Date Diana Martinez PA [address] [place] [address] PCP - General 01/03/22 Carl Goodman MD [address] [address] Surgery, Orthopedic 01/03/22 Osmar Chicas MD [address] [place] [address] Cardiovascular Disease 01/03/22 documented as of this encounter
--- OUTSIDE RECORDS SUMMARY | 2024-10-10 14:56 | XMS_ITS | Encounter Summary ---
Author Organization [facility] Address [address] [place] [address] Care Team Providers Care Card Reader Name Role Phone Diana Martinez Primary Care Provider +[phone]- [phone] Carl Goodman MD Unavailable Osmar Chicas MD Unavailable Encounter Details Date Type Department Care Team (Late st Contact Info) Description 05/20/2022 Erroneous Encounter [facility]PT [address] [place] [address] Anthony Landeros MD [address] [facility] [address] [place], [place] [id number] Social History Tobacco Use Types Packs/Day Years [...] on filedocumented in this encounter Care Teams Card Reader Relationship Specialty Start Date End Date Diana Martinez PA [address] [place] [address] PCP - General 01/03/22 Carl Goodman MD [address] [address] Surgery, Orthopedic 01/03/22 Osmar Chicas MD [address] [address] Cardiovascular Disease 01/03/22 documented as of this encounter
--- OUTSIDE RECORDS SUMMARY | 2024-10-10 14:56 | XMS_ITS ---
Author Name [facility] Organization Unknown History of Medication Use Medication Directions Dispensed Refills Start Date End Date [facility] aripiprazole 5 mg tablet TAKE 1/2 TABLET BY MOUTH DAILY WITH FOOD active Stimulant Laxative Plus 8.6 mg-50 mg tablet 4 completed zolpidem (AMBIEN) 10 MG tablet Take 10 mg by mouth nightly. active ondansetron (ZOFRAN) 4 MG tablet PLEASE SEE ATTACHED FOR DETAILED DIRECTIONS 09/12/2022 active aspirin 81 mg tablet,delayed release active acetaminophen 500 mg tablet active meclizine 25 mg tablet TAKE 1 TABLET 3 TIMES DAILY NEEDED FOR VERTIGO 4 completed valsartan 80 mg tablet TAKE 1 TABLET BY MOUTH EVERY DAY 4 completed methocarbamol 750 mg tablet active PANTOprazole (PROTONIX) 40 MG EC tablet 12/30/2022 active gabapentin (NEURONTIN) 600 MG tablet gabapentin 600 mg tablet Take 1 tablet 3 times a day by oral route. active oxycodone 5 mg tablet 4 completed levetiracetam 750 mg tablet TAKE 1 TABLET BY MOUTH EVERY 12 HOURS 4 completed methocarbamol (ROBAXIN) 750 MG tablet TAKE 1 TABLET 3 TIMES A DAY BY ORAL ROUTE NEEDED. 02/17/2023 active methocarbamol 750 mg tablet active meloxicam 15 mg tablet 4 completed hydrocodone 7.5 mg-acetaminophen 325 mg tablet TAKE 1 TABLET EVERY 4-6 HOURS NEEDED FOR PAIN 4 active methocarbamol 750 mg tablet Take 1 tablet 3 times a day by oral route as needed. 02/17/2023 4 active meclizine 25 mg tablet TAKE 1 TABLET 3 TIMES DAILY NEEDED FOR VERTIGO active rosuvastatin 10 mg tablet TAKE 1 TABLET BY MOUTH EVERYDAY AT BEDTIME active SUMAtriptan-naproxe n (TREXIMET) 85-500 MG per tablet Take 1 tablet by mouth. 09/11/2022 active acetaminophen 500 mg tablet active lamoTRIgine (LaMICtal) 25 MG tablet TAKE 1 TAB IN THE AM AND 2 AT BEDTIME AND AFTER 2 WEEKS TAKE 2 TABLET BY MOUTH 2 TIMES A DAY 11/12/2022 active lamotrigine 25 mg tablet TAKE 1 TAB IN THE AM AND 2 AT BEDTIME AND AFTER 2 WEEKS TAKE 2 TABLET BY MOUTH 2 TIMES A DAY active ondansetron HCl 4 mg tablet PLEASE SEE ATTACHED FOR DETAILED DIRECTIONS 4 completed aspirin enteric coated (aspirin enteric coated) 81 MG EC tablet Take 1 tablet (81 mg total) by mouth 2 (two) times a day. 02/07/2022 active clonazePAM (KlonoPIN) 0.5 MG tablet TAKE 1-2 TABLETS ONCE A DAY IF NEEDED FOR ANXIETY 12/31/2021 active hydrocodone 7.5 mg-acetaminophen 325 mg tablet TAKE 1 TABLET EVERY 4-6 HOURS NEEDED FOR PAIN active zolpidem 10 mg tablet TAKE 1/2 TO 1 TABLET AT BEDTIME NEEDED FOR SLEEP 4 completed rosuvastatin 10 mg tablet TAKE 1 TABLET BY MOUTH EVERYDAY AT BEDTIME active cephalexin 500 mg capsule TAKE 1 CAPSULE BY MOUTH THREE TIMES A DAY 4 completed Senna Laxative 8.6 mg tablet 4 completed ibuprofen 600 mg tablet TAKE 1 TABLET BY MOUTH THREE TIMES A DAY NEEDED FOR PAIN active clonazepam 0.5 mg tablet TAKE 1/2 TO 1 TAB BY MOUTH TWICE A DAY AND MAY TAKE AN ADDITIONAL TAB NEEDED FOR SEVERE ANXIETY active naltrexone (REVIA) 25 MG tablet Take 25 mg by mouth nightly. active levetiracetam 750 mg tablet TAKE 1 TABLET BY MOUTH EVERY 12 HOURS active gabapentin 100 mg capsule TAKE 1 CAPSULE BY MOUTH TWICE A DAY 4 completed lamotrigine 150 mg tablet TAKE 1 TABLET BY MOUTH TWICE A DAY active prednisone 10 mg tablet active meloxicam 15 mg tablet active gabapentin (NEURONTIN) 100 MG capsule Take 100 mg by mouth 2 (two) times a day. 03/04/2023 active lamotrigine 100 mg tablet PLEASE SEE ATTACHED FOR DETAILED DIRECTIONS active Allergies Allergen Reaction Severity Comment Documented Date Source Statu s VIBRAMYCIN ENS_AONECT GABAPENTIN ENS_AONECT Problems Problem Status Onset Date Problem Type Date of Resolution Source Memory impairment active 2023-01-06 ProblemAct [facility]P cervical spinal fusion active 2023-01-06 ProblemAct [facility] CVA (cerebral vascular accident) active 2023-01-06 ProblemAct [facility] Lumbar stenosis active 2023-01-06 ProblemAct [facility] Abnormal head CT active 2022-11-06 ProblemAct [facility] Palpitation active 2023-01-06 ProblemAct [facility] Depression active 2023-01-06 ProblemAct [facility] Positive COLTON (antinuclear antibody) active 2023-01-06 ProblemAct [facility] History of total replacement of right hip joint active 2023-01-19 ProblemAct E[facility]_AONECT Hip pain active 2022-12-[address] Peripheral vertigo active 2023-01-06 ProblemAct [facility] Spondylolisthesis of lumbar region active 2018-10-25 ProblemAct [facility] Chronic right shoulder pain active 2023-01-06 ProblemAct [facility] Chronic lower back pain active 2023-01-06 ProblemAct [facility] Upper back pain active 2023-01-06 ProblemAct [facility] Atelectasis, right active 2022-11-06 ProblemAct [facility] 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 2023-02-10 ProblemAct [facility] Low vitamin D level active 2022-11-06 ProblemAct [facility] Insomnia active 2022-11-06 ProblemAct [facility] Daytime somnolence active 2023-01-06 ProblemAct [facility] Lymph nodes enlarged active 2023-01-06 ProblemAct [facility] Jaw pain active 2023-01-06 ProblemAct [facility] Thoracic nerve root impingement active 2022-11-06 ProblemAct [facility] PTSD (post-traumatic stress disorder) active 2023-01-06 ProblemAct [facility] Cervical radiculopathy active 2018-10-25 ProblemAct [facility] Degenerative disc disease, cervical active 2018-10-25 ProblemAct [facility] Elevated alkaline phosphatase level active 2023-01-06 ProblemAct [facility] Chronic neck pain active 2018-10-25 ProblemAct [facility] Primary osteoarthritis of left hip active 2018-04-05 ProblemAct [facility] Hypertension active 2022-11-06 ProblemAct [facility] Dyspnea active 2023-01-06 ProblemAct [facility] Obesity (BMI 30-39.9) active 2023-01-06 ProblemAct [facility] Hydrocephalus active 2022-11-06 ProblemAct [facility] T Anxiety active 2022-11-06 ProblemAct [facility] Elevated C-reactive protein (CRP) active 2023-01-06 ProblemAct [facility] Osteoarthritis of right hip active 2022-12-29 ProblemAct [facility] Unsteady gait active 2023-01-06 ProblemAct [facility] T Dyslipidemia active 2023-01-06 ProblemAct [facility] Chest fullness active EncounterDiagnosisAct [facility] Generalized weakness active 2023-01-06 ProblemAct [facility] Bruising active 2022-11-06 ProblemAct [facility] 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
--- OUTSIDE RECORDS SUMMARY | 2024-10-10 14:56 | XMS_ITS | Encounter Summary ---
Author Organization [facility] Address [address] [place] [address] Care Team Providers Care Heating Unit Installer Name Role Phone Diana Martinez Primary Care Provider [phone]- [phone] Carl Goodman MD Unavailable Osmar Chicas MD Unavailable [phone] Encounter Details Date Type Department Care Team (Late st Contact Info) Description 12/07/2022 Scanned Document [facility] Department of [facility] [place] [address] [place] [address] Diana Martinez PA [address] [place] [address] Social History Tobacco Use Types [...] suspected to have Coronavirus/COVID-19? No / Unsure 12/09/2022 9:43 AM EDT documented as of this encounter Plan of Treatment Not on file documented as of this encounter Visit Diagnoses Not on filedocumented in this encounter Care Teams Heating Unit Installer Relationship Specialty Start Date End Date Diana Martinez PA [address] [place] [address] PCP - General 01/03/22 Carl Goodman MD [address] [address] Surgery, Orthopedic 01/03/22 Osmar Chicas MD [address] [place] [address] Cardiovascular Disease 01/03/22 documented as of this encounter
--- OUTSIDE RECORDS SUMMARY | 2024-10-10 14:56 | XMS_ITS | Encounter Summary ---
Author Organization [facility] Address [address] [place] [address] Care Team Providers Care Chief Safety Officer Name Role Phone Diana Martinez Primary Care Provider [phone] Carl Goodman MD Unavailable Osmar Chicas MD Unavailable [phone] Encounter Details Date Type Department Care Team (Late st Contact Info) Description 05/01/2022 Erroneous Encounter [facility] CONVERSION DEPT [address] [place] [address] ProviderLorena MD Social History Tobacco Use Types Packs/Day Years [...] on filedocumented in this encounter Care Teams Chief Safety Officer Relationship Specialty Start Date End Date Diana Martinez PA [address] [address] PCP - General 01/03/22 Carl Goodman MD [address] [address] Surgery, Orthopedic 01/03/22 Osmar Chicas MD [address] [place] [address] Cardiovascular Disease 01/03/22 documented as of this encounter
--- OUTSIDE RECORDS SUMMARY | 2024-10-10 14:56 | XMS_ITS | Clinical Summary ---
Author Organization [facility] Address [address] [place] [address] Care Team Providers Care Packaging Tech Name Role Phone Diana Martinez Primary Care Provider [phone]- [phone] Allergies Active Allergy Reactions Criticality Noted Date Comments Amoxicillin Hives,Rash Medium 03/18/2018 rash Doxycycline Other (See Comments) High 03/18/2018 GI BLEEDING Internal bleeding Iodinated Contrast Media Shortness Of Breath High 02/05/2022 SOB Has recently had contrasted Dye without reaction Latex Itching Low 02/05/2022 C/O: itching Morphine Hives,Rash Low 10/12/2010 Other reaction(s): rash Medications Medication Sig Dispensed Refills Start Date End Date Status ARIPiprazole (ABILIFY) 5 MG tablet Take 0.5 tablets (2.5 mg total) by mouth daily. 0 Active sertraline (ZOLOFT) 100 MG tablet Take 1 tablet (100 mg total) by mouth 2 (two) times a day. Patient takes 100mg in the morning, 50mg at bedtime 0 Active clonazePAM (KlonoPIN) 0.25 mg split tablet Take 2 split tablet (0.5 mg total) by mouth 2 (two) times a day as needed for anxiety. Take 1-2 tablets as needed for anxiety 0 Active lamoTRIgine (LaMICtal) 25 MG tablet 4 tablets (100 mg total) 2 (two) times a day. 100 mg BID current dose 0 10/15/2022 Active levETIRAcetam (KEPPRA) 750 MG tablet Take 1 tablet (750 mg total) by mouth every 12 (twelve) hours. 0 10/19/2022 Active meclizine (ANTIVERT) 12.5 MG tablet 1 tablet (12.5 mg total) 3 (three) times a day as needed. 0 10/15/2022 Active ondansetron (ZOFRAN) 4 MG tablet PLEASE SEE ATTACHED FOR DETAILED DIRECTIONS 0 09/12/2022 Active rosuvastatin (CRESTOR) tablet 10 mg Take 1 tablet (10 mg total) by mouth every night at bedtime. 0 10/06/2022 Active valsartan (DIOVAN) tablet 40 mg Take 1 tablet (40 mg total) by mouth daily. 0 Active zolpidem (AMBIEN) 10 MG tablet Take 0.5-1 tablets (5-10 mg total) by mouth every night at bedtime as needed. sleep 0 10/03/2022 Active Polyethylene Glycol 3350 (MIRALAX PO) Take 1 Scoop by mouth. 0 Active acetaminophen (TYLENOL EXTRA STRENGTH) 500 MG tablet Take 2 tablets (1,000 mg total) by mouth every 8 (eight) hours as needed for pain. 60 tablet 0 12/30/2022 Active methocarbamol (ROBAXIN) 750 MG tablet Take 1 tablet (750 mg total) by mouth every 6 (six) hours as needed (muscle spasm). 40 tablet 0 12/30/2022 Active senna-docusate (PERICOLACE) 8.6-50 MG Take 1 tablet by mouth 2 (two) times a day. 30 tablet 0 12/30/2022 Active oxyCODONE (Roxicodone) 5 MG immediate release tablet Take 1 tablet (5 mg total) by mouth every 4 (four) hours as needed for pain. 5 tablet 0 02/12/2023 Active Active Problems Problem Noted Date Diagnosed Date Failure of right total hip a rthroplasty with dislocation of hip, initial encounter 02/10/2023 Osteoarthritis of right hip 12/29/2022 Chronic left-sided low back pain with left-sided sciatica 10/25/2018 Spondylolisthesis of lumbar region 10/25/2018 Degenerative disc disease, cervical 10/25/2018 Neck pain 10/25/2018 Cervical radiculopathy 10/25/2018 Primary osteoarthritis of left hip 04/05/2018 BMI 39.0-39.9,adult 03/24/2018 Family History Medical History Relation Name Comments Cancer Father PROSTATE Hypertension Father Rheum arthritis Mother Hypertension Sister Relation Name Status Comments Brother Alive Father (Age 73) PROSTATE C A Mother (Age 70) SEPSIS Sister Alive Social History Tobacco Use Types Packs/Day Years Used Date Smoking Tobacco: Former Cigarettes 1 15 Q uit: 03/18/2001 Smokeless Tobacco: Never Tobacco Cessation:Counseling Given: Not Answered Alcohol Use Standard Drinks/Week Comments No 0 (1 standard drink = 0.6 oz pur e alcohol) Sex and Gender Information Value Date Recorded Sex Assigned at Female 04/23/2021 12:04 PM EDT Gender Identity Female 11/14/2022 9:16 AM EST Sexual Orientation Choose not to disclose 2022 7:44 AM EDT Job Start Date Occupation Industry Not on file Not on file Not on file Last Filed Vital Signs Vital Sign Reading Time Taken Comments Blood Pressure 117/56 02/12/2023 7:34 AM EDT Pulse 79 02/12/2023 7:34 AM EDT Temperature 37.1 ??C (98.7 ??F) 02/12/2023 7:34 AM ED T Respiratory Rate 18 02/12/2023 7:34 AM EDT Oxygen Saturation 98% 02/12/2023 7:34 AM EDT Inhaled Oxygen Concentration - - Weight 97.5 kg (215 lb) 02/11/2023 3:13 PM EDT Height 167.6 cm (5' 6 ) 02/11/2023 3:13 PM EDT Body Mass Index 34.7 02/11/2023 3:13 PM EDT Plan of Treatment Health Maintenance Due Date Last Done Comments Hepatitis B Vaccines (1 of 3 - 3-dose series) 1965 Hepatitis C Screening 1965 COVID-19 Vaccine (#1) 1965 Depression Screening 1977 BMI Counseling 1983 Preventative Health Evaluation 1983 Cervical Cancer Screening (P ap Smear) 1986 Colon Cancer Screening (Colonoscopy) 2010 Breast Cancer Screening (Mammogram) 2015 Shingrix-Zoster Vaccine (1 of 2) 2015 DTap / Tdap / Td (2 - Td or Tdap) 11/08/2022 013 Influenza Vaccine (#1) 2024 Pneumococcal Vaccine Aged Out No long er eligible based on patient's age to complete this topic RSV Ped < 20 months Aged Out No longe r eligible based on patient's age to complete this topic Medical Devices Implanted Type Area Dispatcher Street Department Device Identifier Shelf Expiration Date Model / Serial / Lot Surgiflo Hemostatic Matrix Kathryn-Ethi [id number] - [id number] Implanted:Qty : 2 on 08/09/2021 [place] Andrea Polanco [place] [facility] Hemostatic Agent Anterior: Spine Cervical [employer] 11/04/2022 2991 / / [id number] Size 5 Standard Tapered Stem Cementless Implanted:Qty : 1 on 12/29/2022 by Clifton Esteban MD [place] [facility] Total Joint Right: Hip [id number] 10/01/2027 / / [id number] +4 Femoral Head Implanted:Qty : 1 on 12/29/2022 by Clifton Esteban MD at [facility] Total Joint Right: Hip [id number] 07/04/2026 / / [id number] Description:Renata 36mm +4mm Acetabular Liner 36mm X 52\54 10?? Hooded E-Max - [id number] - [id number] Implanted:Qty : 1 on 04/07/2018 by Bairon Adame MD at [facility] Left: Hip RENOVI 09/19/2022 1523-365 -254 / / [id number] Cancellous Bone Screw 6.5mm X 20mm - [id number] - [id number] Implanted:Qty : 1 on 04/07/2018 by Bairon Adame MD at [facility] Left: Hip RENOVI 10/26/2022 1501-865 -020 / / [id number] Acetabular Bone Screw 6.5mm X 30mm - [id number] - [id number] Implanted:Qty : 1 on 04/07/2018 by Bairon Adame MD at [facility] Left: Hip RENOVI 08/22/2021 1501-865 -030 / / [id number] Stem Tapered Femoral Extended-Late ral Offset 6.75mm - [id number] - [id number] Implanted:Qty : 1 on 04/07/2018 by Bairon Adame MD at [facility] Left: Hip RENOVI 07/21/2022 1401-922 -067 / / [id number] Biolox?? Delta Ceramic Femoral Head Sz 36mm -4 - [id number] - [id number] Implanted:Qty : 1 on 04/07/2018 by Bairon Adame MD at [facility] Left: Hip RENOVI 03/03/2022 1451-036 -004 / / [id number] Plate Ganado 57mm 3 Level Bone Stry-K2m [id number] [id number] - [id number] Implanted:Qty : 1 on 08/09/2021 by Andrea Polanco DO at [facility] Anterior: Spine Cervical [employer] [id number] / / Screw Ganado Self-Start 4x16mm Stry-K2m [id number]- [id number] - [id number] Implanted:Qty : 7 on 08/09/2021 by Andrea Polanco DO at [facility] Anterior: Spine Cervical [employer] 8801-040 16DA / / Screw Ganado 16mm 4.5mm Self St Stry-Howm 8801-12910ml- [id number] - [id number] Implanted:Qty : 1 on 08/09/2021 by Andrea Polanco DO at [facility] [place] [facility] Anterior: Spine Cervical [employer] 8801-045 16DA / / Spacer Vikos 14.5x11.5x8mm 7d Stry-Spin [id number]-[id number] 02817 - [id number] Implanted:Qty : 1 on 08/09/2021 by Andrea Polanco DO at [facility] [place] [facility] Anterior: Spine Cervical [employer] 06/12/2025 2504-214 08L / [id number] / Spacer Vikos 14.5x11.5x7mm 7d Stry-Spin 6469-47765u-1 28970 - [id number] Implanted:Qty : 1 on 08/09/2021 by Andrea Polanco DO at [facility] Anterior: Spine Cervical [employer] 10/24/2025 2504-214 07L / [id number] / Spacer Vikos 14.5x11.5x7mm 7d Stry-Spin [id number]-6 99128 - [id number] Implanted:Qty : 1 on 08/09/2021 by Andrea Polanco DO at [facility] Anterior: Spine Cervical [employer] 08/02/2025 2504-214 07L / [id number] / Hip Cup Marie Tpr 52mm Sz3 Crng-Manu 321.03.352-63 6960 - [id number] Implanted:Qty : 1 on 12/29/2022 by Clifton Esteban MD at [facility] Right: Hip [employer] [id number] 10/13/2027 321.03.3 52 / / [id number] Screw Marie 6.5x25mm Crng-Manu 321.025-58322 7 - [id number] Implanted:Qty : 1 on 12/29/2022 by Clifton Esteban MD at [facility] [place] [facility] Right: Hip [employer] [id number] 09/02/2027 321.025 / / [id number] Screw Marie 6.5x20mm Crng-Manu 321.020-17465 6 - [id number] Implanted:Qty : 1 on 12/29/2022 by Clifton Esteban MD at [facility] [place] [facility] Right: Hip [employer] [id number] 10/02/2027 321.020 / / [id number] Marie Liner Ecima Neutral Offset Implanted:Qty : 1 on 12/29/2022 by Clifton Esteban MD at [facility] [place] [facility] Right: Hip [employer] 10/29/2027 322.03.6 36 / / [id number] Explanted Type Area Dispatcher Street Department Device Identifier Shelf Expiration Date Model / Serial / Lot Acetabular Shell Cluster Hole Sz 54mm - [id number] - [id number] Implanted:Qty: 1 on 04/07/2018 by Biaron Adame MD at [facility] [place] [facility] Explanted:Qty: 1 on 02/11/2023 at [facility] Left: Hip RENOVI 12/13/2021 1501-121 -05 3553-2 Advance Directives For more information, please contact: [phone] Documents on File Type Date Recorded Patient Heat Treating Operator Expl anation Advance Directive and Living Will 04/07/2018 5:24 AM Advance Directive and Living Will 04/07/2018 Latest Code Status on File Code Status Date Activated Date Inactivated Comments Full Code 02/11/2023 4:53 PM 02/12/2023 10:35 PM This c ode status was ascertained in the following way: per living will or healthcare instructions . Code Status History Code Status Date Activated Date Inactivated Comments Full Code 02/10/2023 7:19 PM 02/11/2023 4:53 PM This co de status was ascertained in the following way: discussion with patient . Full Code 12/29/2022 7:43 AM 12/30/2022 7:39 PM This code status was ascertained in the following way: discussion with patient . Full Code 12/29/2022 6:56 AM 12/29/2022 7:43 AM This code status was ascertained in the following way: discussion with healthcare floor representative . Full Code 08/09/2021 12:40 PM 08/12/2021 9:22 PM This code status was ascertained in the following way: discussion with patient . Care Teams Packaging Tech Relationship Specialty Start Date End Date Diana Martinez PA [address] [place] [address] PCP - General Physician Cell Operation Supervisor 12/29/22
--- OUTSIDE RECORDS SUMMARY | 2024-10-10 14:56 | XMS_ITS | Data Portability ---
Author Organization [facility] [address] Address [address] [place] [address] Care Team Providers Care Hydrogen Operator Name Role Phone EDI LEONARD Primary Care Provider Assessment No assessment recorded. Plan of Treatment Reminders Order Date Submit Date Provider Last Modified By Organization Details Last Modified Time Details Appointments None recorded. Lab None recorded. Referral None recorded. Procedures None recorded. Surgeries None recorded. Imaging None recorded. Medication Orders ketorolac 30 mg/mL (1 mL) injection solution 2022 023 [email or web address] Not available 13:25:22 Patient TargetsNo targets recorded. Patient Instructions Encounter Date Encounter Id Patient Instructions Last Modified By Organization Details Last Modified Time 11/30/2022 [id number] hip pain: care instructions [email or web address] Not available 11/30/2022 13:17:22 Reason for Referral None Reported. Problems Name Problem SNOMED Code Status Onset Date Resolution Date Notes Provider Name and Address Organization Details Recorded Time Hypercholester olemia 44371047 Active 2022 TOBY TEJADA null, [place] - [facility] 3 12:54:21 Cerebrovascula r accident 952112001 Active 2022 TOBY TEJADA null, PA - [facility] 3 12:54:37 Traumatic brain injury 478696182 Active 2022 TOBY TEJADA null, PA - [facility] 3 12:54:50 Seizure disorder 689800567 Active 2022 TOBY TEJADA null, PA - [facility] 3 12:55:09 Vertigo 835070278 Active 2022 [facility], [facility] - [facility] [...] Name and Address Organization Details Recorded Time 054033 amoxicill in medicatio n rash Not available Not available 11/30/2022 723 RxNorm TOBY more, PA - [facility] 3 12:50:18 972260 morphine medicatio n rash Not available Not available 11/30/2022 7052 RxNorm TOBY TEJADA null, PA - [facility] 3 12:50:30 808212 Vibramyci n medicatio n gi bleed Not available Not available 11/30/2022 77000 5 RxNorm TOBY TEJADA null, PA - [...] Updated DateTime 3 167.64 cm 34.5 kg/m2 37381.7 7 g 79 /min 97 % 97 % 18 /min 98.3 [degF] 117 mm[Hg] 78 mm[Hg] TOBY TEJADA PA - [facility] 12:58:57 Social History Question Answer Notes LastModified by Organizat ion Details LastModified Time Tobacco Smoking Status Never Smoker TOBY more PA - [facility] 11/30/2022 12:57:35 What Is Your Level Of Alcohol Consumption? None [email or web address] Information not available 11/30/2022 Which Illicit Or Recreational Drugs Have You Used? Cbd Oil [email or web address] Information not available 11/30/2022 Do You Use Any Illicit Or Recreational Drugs? Yes [email or web address] Information not available 11/30/2022 Have You Recently Traveled Abroad? No [email or web address] Information not available 11/30/2022 Do You Or [...] SNOMED-CT Code Diagnosis ICD10 Code Diagnosis Note [id number] [address] [facility] [address] [place] [address] 07/15/2016 17:08:30 07/15/2016 17:46:27 [id number] [address] [facility] [place] [address] 05/02/2018 14:17:45 05/02/2018 15:36:19 [id number] [address] [place] [address] 03/27/2019 18:05:44 03/27/2019 18:42:56 [id number] [address] [place] [address] 02/15/2019 08:37:37 02/15/2019 09:00:52 [id number] [address] [place] [address] 0 12/30/2017 09:27:49 12/30/2017 10:05:50 [id number] [address] [facility] [place] [address] 09/13/2019 17:37:31 09/13/2019 19:09:59 [id number] [address] [facility] [place] [address] 07/13/2016 13:41:57 07/13/2016 15:06:16 [id number] [address] [facility] [place] [address] 01/02/2018 08:18:58 01/02/2018 09:11:25 [id number] [address] [facility] [place] [address] 03/01/2018 08:30:18 03/01/2018 09:38:51 [id number] [address] [facility] [place] [address] 05/19/2018 08:20:14 05/19/2018 08:49:28 [id number] Jeremy Moses DO [address] [facility] [place] [address] 11/30/2022 12:33:28 11/30/2022 13:40:19 Pain in right hip joint [id number] 89639 M25.551 recommend resttyleno l 1 g every 8 htrial of im toradol x 1Reviewed with patient potential adverse side effects of the medication .call treating ortho in [place] for evaluation Patient advised to follow up as needed for worsening symptoms or no improvemen t. Discussed concerning red flags with patient and reasons to follow up in the Emergency Department urgently. Health Concerns Section Related Observation LastModified by Organization Detai ls LastModified Time None Recorded Concern Status LastModified by Organization Details LastModified Time None Recorded Advance Directives Directive None Recorded Payers Encounter Date Sequence Insurance Name Policy Number Policy Carty Covered Member ID Carty Member ID Guarantor Name 05/19/2018 1 [facility] [employer] - OPEN ACCESS PLUS [id number] Nina Bella [id number] Nina Bella 02/15/2019 1 [employer] [facility] [employer] [employer] - [employer] ACCESS PLUS [id number] Nina Bear Wiet[place] [id number] Nina Bear [place] 03/27/2019 1 [facility] [employer] - OPEN ACCESS PLUS [id number] Nina Bear [place] [id number] Nina Bear [place] 09/13/2019 1 [facility] [employer] - OPEN ACCESS PLUS [id number] Nina Bear [place] [id number] Nina Bear [place] 11/30/2022 1 [place] [id number] Nina Bear Wiet[place]a [id number] Nina Bella Notes Date Note Type Note [...] DO [address] [place], [address], [place] - [facility] 11/30/2022 14:31:47 OBGyn Episode No OBEpisode recorded.
== END 2024-10-10 14:32 | disposition home or self-care (01) ==
LOC: HO.HOP 13:33
PROVIDERS: PCP Internal Medicine; Visit Provider Clinical Nurse Specialist Psychiatric/Mental Health
DX: F33.1 Major depressive disorder, recurrent, moderate (principal); F41.1 Generalized anxiety disorder; G31.84 Mild cognitive impairment of uncertain or unknown etiology; R51.9 Headache, unspecified; F43.12 Post-traumatic stress disorder, chronic
CPT/HCPCS: 99214

== ENCOUNTER → 2024-10-10 13:33 | Outpatient (BNVA) | payer MEDICARE, MEDICAID, SELFPAY | PROVIDERS: PCP Internal Medicine; Visit Provider Clinical Nurse Specialist Psychiatric/Mental Health | DX: F33.1 Major depressive disorder, recurrent, moderate (principal); F41.1 Generalized anxiety disorder; F43.12 Post-traumatic stress disorder, chronic; R51.9 Headache, unspecified; G31.84 Mild cognitive impairment of uncertain or unknown etiology; G91.9 Hydrocephalus, unspecified | CPT/HCPCS: 99212 ==

== ENCOUNTER 2024-11-07 14:43 | Outpatient (AMB) | payer MEDICARE, MEDICAID, SELFPAY ==
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
--- OUTSIDE RECORDS SUMMARY | 2024-11-07 17:33 | XMS_ITS ---
Author Organization [facility] Address [address] [place] [address] Care Team Providers Care Transit Planning Manager Name Role Phone Nick, Floyd Primary Care Provider Aleisha Holguin Unavailable [phone] Allergies Allergen (clinical drug ingredient) Drug/Non Drug Allergy documented on EMR Reaction Allergy Type Onset Date Status Vibramycin Unknown Drug Allergy Active Latex Latex Unknown Allergy Active morphine Morphine Unknown Drug Allergy Active REASON FOR VISIT Heel pain Medications Medication SIG (Take, Route, Frequency, Duration) Notes Start Date End Date Status lamoTRIgine 150 MG Oral for 30 Days Active Rosuvastatin Calcium 10 MG Oral for 90 Days Active risperiDONE 0.25 MG 1 tablet Orally Once a day for 30 days Active DULoxetine HCl 60 MG Oral for 30 Days Active Valsartan 40 MG Oral for 90 Days Active Pantoprazole Sodium Active Baby Aspirin Active Social History Tobacco Use: Social History Observation Description Date Details (start date - stop date) Never Smoker NA - NA Tobacco use other than smoking: Question Answer Notes Are you an other tobacco user? Yes Tobacco Control (Standard) Question Answer Notes Tobacco use: Nonsmoker Vital Signs Height 5ft6in in 09/21/2024 Weight 190 lbs 09/21/2024 BMI 30.66 kg/m2 09/21/2024 Blood pressure systolic 120 mm Hg 09/21/19 25 Blood pressure diastolic 80 mm Hg 025 Encounters Encounter Location Date Provider Diagnosis [facility] [address] [place] [address] 09/21/2024 Aleisha Mahan Plantar fibromatosis M72.2 Assessments Encounter Date Diagnosis (ICD Code) Assessment Notes Treatment Notes Treatment Clinical Notes Section Notes 09/21/2024 Plantar fibromatosis (ICD-10 - M72.2) 09/21/2024 Other Plan Of Treatment Next Appt Details Follow Up: prn, Reason: Progress Notes * Sindy BELLAOB:[birth year] (59 yo F)Acc No.[id number]:09/21/2024 Progress Notes Patient:?Nina BELLA Provider:?Aleisha Mahan DPM :1965???Age:59 Y???Sex:Female D ate:09/21/2024 Address:[address] [place] [address] [facility] [id number] Pcp:Floyd Romero Subjective: * Chief Complaints: * ???Heel pain * HPI: ???Heel pain:?Nature:?tenderness, sharp pain, stiffness.?Location:?Arch, RIGHT greater than Left.?Duration:?several months.?Course:?resolved.?Treatments:?rest/alter normal daily activity, change in shoes, stretching, pre-fabricated orthoses, Custom compounded topical anti-inflammatory cream, AFO-nightsplint.? * ROS:?General/Constitutional:?Nausea?denies, denies.?Vomiting?denies, denies.?Hunger Thirst?denies, denies.?Loss appetite?admits, denies, admits, denies.?Chills?denies, denies.?Fatigue?denies, denies.?Fever?denies, denies.?Night Sweats?denies, denies.?Unexplained weight loss?denies, denies.?Unexplained weight gain?denies, denies.?HEENTM:?Dentures?denies, denies.?Dizziness?admits, denies, admits, denies.?Glasses/contacts?admits, denies, admits, denies.?Retinopathy?denies, denies.?Blurred/double vision?denies, denies.?TMJ?denies, denies.?Discharge/drainage?denies, denies.?Implants?denies, denies.?Sore throat?denies, denies.?Dental implants?denies, denies.?Hard of hearing ?denies, denies.?Difficulty chewing/swallowing/speaking?denies, denies.?Nose bleeds?denies, denies. Sore mouth?denies, denies.?Respiratory:?On Oxygen?denies, denies.?Pneumonia/pleurisy?denies, denies.?Bronchitis?denies, denies.?Emphysema?denies, denies.?Coughing?denies, denies.?Cough blood?denies, denies.?Shortness of breath?denies, denies.?Wheezing?denies, denies.?Cardiovascular:?Pacemaker?denies, denies.?MVP?denies, denies.?WPW?denies, denies.?CHF?denies, denies.?Heart attack?denies, denies.?Septal defect?denies, denies.?Rapid beat?denies, denies.?Chest pain ?denies, denies.?Atrial Fib.?denies, denies.?Murmur/Palpitations?denies, denies.?Gastrointestinal:?Hemorrhoids?denies, denies.?Stomach/Abdominal pain?admits, denies, admits, denies.?Dark blood stool?denies, denies.?Irritable bowel ?denies, denies.?Constipation?admits, denies, admits, denies.?Diarrhea?admits, denies, admits, denies.?Hematology:?Swelling?denies, denies.?Clots?denies, denies.?Varicose Veins?denies, denies.?Bruising?admits, denies, admits, denies.?Bleeding problem?denies, denies.?Genitourinary:?Blood urine?denies, denies.?Frequent/Painfu/urination/bladder control?admits, denies, admits, denies.?Kidney stones?denies, denies.?Infection (UTI)?denies, denies.?Nephropathy?denies, denies.?sex trans dis (STD) denies, denies.?Prostate?denies, denies.?Musculoskeletal:?Hammertoes?denies, denies.?Bunions?denies, denies.?Back Pain?admits, denies, admits, denies.?Muscle Cramps/ Resting?denies, denies.?Muscle cramps / walking?admits, denies, admits, denies.?Generalized aches and pains?denies, denies.?Weakness?denies, denies.?Integ.:?Spence?denies, denies.?Scars?denies, denies.?Corns/calluses?denies, denies.?Ingrown nails?denies, denies.?Painful nails?denies, denies.?Open Sores?denies, denies.?Rashes?denies, denies.?Neurologic:?Difficulty sleeping?denies, denies.?Brain disorder?admits, denies, admits, denies.?Numbness?denies, denies.?Balance trouble?admits, denies, admits, denies.?Confusion?admits, denies, admits, denies.?Fainting/blackouts?denies, denies.?Tingling?denies, denies.?Tremors?denies, denies.? * Medical History:? * Surgical History:?hip replac ement back fusions endoscopy 07/12/24colonoscopy 07/08/24 * Hospitalization/Major Diagno stic Procedure:?Denies Past Hospitalization * Family History:?Mother: dece ased, diagnosed with Family history of arthritis.?Father: , diagnosed with Other malignant neoplasm of unspecified site, Unspecified essential hypertension.? * Social History:?Tobacco Use:?Tobacco use other than smoking?Are you an other tobacco user??Yes ?Tobacco Control (Standard)?Tobacco use:?Nonsmoker * Medications:?TakingBaby Aspi rin Pantoprazole Sodium risperiDONE 0.25 MG Tablet 1 tablet Orally Once a day Rosuvastatin Calcium 10 MG Tablet Oral lamoTRIgine 150 MG Tablet Oral Valsartan 40 MG Tablet Oral DULoxetine HCl 60 MG Capsule Delayed Release Particles Oral Medication List reviewed and reconciled with the patientTaking Baby Aspirin Taking Pantoprazole Sodium Taking risperiDONE 0.25 MG Tablet 1 tablet Orally Once a day Taking Rosuvastatin Calcium 10 MG Tablet Oral Taking lamoTRIgine 150 MG Tablet Oral Taking Valsartan 40 MG Tablet Oral Taking DULoxetine HCl 60 MG Capsule Delayed Release Particles Oral Medication List reviewed and reconciled with the patient * Allergies:?LatexMorphineVibr amycinyes[Allergies Verified] Objective: * Vitals:?Ht: 5ft6in, Wt:190, BMI:30.66, Shoe size: 9.5, BP:120/80mm Hg, Ht-cm: 167.64 cm, Wt-k.18 kg. * Examination: ???General Examination: ?GENERAL APPEARANCE:?Reveals [...] calcaneal nerves.?DEEP TENDON REFLEXES:?Achilles, 2/4, B/L.?Vascular: ?DP PULSES (B):?3/4, B/L.?PT PULSES (B):?3/4, B/L.?CAPILLARY FILL TIME:?immediate, all digits, B/L.?TROPHIC CONDITION-TEXTURE/ELASTICITY/TURGOR/HAIR GROWTH (B):?normal, B/L.?TEMPERTURE GRADIENT (C):?warm to cool, proximal to distal, B/L.?PIGMENTATION:?normal, B/L.?EDEMA (C):?absent, B/L.?Dermatologic: ?SKIN FINDINGS:?Skin exam reveals normal color, texture, elasticity, and turgor. There are no masses, nor excrescences. The interspaces are clear, B/L.?Orthopedic: ?MUSCLE STRENGTH:?5/5 all groups in a symmetrical fashion , B/L.?FOOTWEAR:?good condition.?Heel Pain: ?INSPECTION REVEALS:?NO Pain on Palpation to Plantar Fascia med. and central bands, intrinsic musc., infra-calcaneal bursa, and med calc tubercle, B/L,?.? Assessment: * Assessment: 1.?Plantar fibromatosis - M7 2.2 (Primary)??? Plan: * Treatment: * Procedure Codes:? * Preventive Medicine:? ??Counseling:?Discussion:?-12: Office or other outpatient visit for the evaluation and management of an established patient, which required a medically appropriate history and/or examination and STRAIGHTFORWARD level of MEDICAL DECISION MAKING, 1 SELF-LIMITED OR MINOR PROBLEM, MINIMAL- NO AMOUNT/COMPLEXITY OF DATA TO BE REVIEWED/ANALYZED, AND MINIMAL RISK OF COMPLICATION/MORBIDITY. The visit on the day of the [...] have encouraged the patient to call the office.?Heel pain:?Given recent successful results to treatment, the patient wishes to continue with the present plan for their condition.? * Follow Up:?prn * Images: * Sign off status: Completed true * Provider:Heike Mahan DPM Date:? Generated for Wayne knutson/Ximena/Sheryl on:?11/07/2024 05:32 PM EST History and Physical Notes * HPI (History of Present Illness) Category Sub-Category Detail Notes Category Not es Heel pain Duration: several months Nature: tenderness, sharp pa in, stiffness Location: Arch, RIGHT greater than Left Course: resolved Treatments: rest/alter normal da bart activity, change in shoes, stretching, pre- fabricated orthoses, Custom compounded topical anti-inflammatory cream, AFO-nightsplint Examination Category Sub-Category Detail Notes Category Not es Heel Pain INSPECTION REVEALS: NO Pain on P alpation to Plantar Fascia med. and central bands, intrinsic musc., infra-calcaneal bursa, and med calc tubercle, B/L, Neurological SENSORY: Neurological exa m reveals intact sensorium, pain sensation normal, vibration sensation intact, pinprick sensation is normal in the lower extremities, Pt denies, anesthesia, burning, paresthesia, tingling, B/L TINEL'S COMPRESSION: Negative tarsal rafal carlton, mariusz pedis, and medial calcaneal nerves DEEP TENDON REFLEXES: Achilles, 2/4, B/L Dermatologic SKIN FINDINGS: Skin exam reveal s normal color, texture, elasticity, and turgor. There are no masses, nor excrescences. The interspaces are clear, B/L Orthopedic FOOTWEAR: good condition MUSCLE STRENGTH: 5/5 all groups in a [...]
--- OUTSIDE RECORDS SUMMARY | 2024-11-07 17:33 | XMS_ITS | Clinical Summary ---
Author Organization [facility] Address [address] [place] [address] Care Team Providers Care Teacher Associate Name Role Phone Diana Martinez Primary Care Provider [phone] Allergies Active Allergy Reactions Criticality Noted Date [...] this topic Medical Devices Implanted Type Area Wafer Line Worker Device Identifier Shelf Expiration Date Model / Serial / Lot Surgiflo Hemostatic Matrix Kathryn-Ethi [id number] - [id number] Implanted:Qty : 2 on 08/09/2021 by Andrea Polanco DO at [facility] [place] and [facility] Hemostatic Agent Anterior: Spine Cervical [employer] 11/04/2022 2991 / / [id number] Size 5 Standard Tapered Stem Cementless Implanted:Qty : 1 on 12/29/2022 by Clifton Esteban MD at [facility] [place] and [facility] Total Joint Right: Hip [id number] 10/01/2027 / / [id number] 36 +4 Femoral Head Implanted:Qty : 1 on 12/29/2022 by Clifton Esteban MD at [facility] [place] and [facility] Total Joint Right: Hip [id number] 07/04/2026 / / [id number] Description:Renata 36mm +4mm Acetabular Liner 36mm X 52\54 10?? Hooded E-Max - [id number] - [id number] Implanted:Qty : 1 on 04/07/2018 by Bairon Adame MD at [facility] [place] and [facility] Left: Hip RENOVI 09/19/2022 1523-365 -254 / / [id number] Cancellous Bone Screw 6.5mm X 20mm - [id number] - [id number] Implanted:Qty : 1 on 04/07/2018 by Bairon Adame MD at [facility] [place] and [facility] Left: Hip RENOVI 10/26/2022 1501-865 -020 / / [id number] Acetabular Bone Screw 6.5mm X 30mm - [id number] - [id number] Implanted:Qty : 1 on 04/07/2018 by Bairon Adame MD at [facility] [place] and [facility] Left: Hip RENOVI 08/22/2021 1501-865 -030 / / [id number] Stem Tapered Femoral Extended-Late ral Offset 6.75mm - 467052 - [id number] Implanted:Qty : 1 on 04/07/2018 by Bairon Adame MD at [facility] [place] and [facility] Left: Hip RENOVI 07/21/2022 1401-922 -067 / / [id number] Biolox?? Delta Ceramic Femoral Head Sz 36mm -4 - 768920 - [id number] Implanted:Qty : 1 on 04/07/2018 by Bairon Adame MD at [facility] [place] and [facility] Left: Hip RENOVI 03/03/2022 1451-036 -004 / / [id number] Plate [place] 57mm 3 Level Bone Stry-K2m [id number] 16522 - [id number] Implanted:Qty : 1 on 08/09/2021 by Andrea Polanco DO at [facility] [place] and [facility] Anterior: Spine Cervical [employer] [id number] 57V / / Screw [place] Self-Start 4x16mm Stry-K2m 8801-21022ki- 866201 - [id number] Implanted:Qty : 7 on 08/09/2021 by Andrea Polanco DO at [facility] [place] and [facility] Anterior: Spine Cervical [employer] 8801-040 16DA / / Screw [place] 16mm 4.5mm Self St Stry-Howm 8801-58736gp- 716610 - [id number] Implanted:Qty : 1 on 08/09/2021 by Andrea Polanco DO at [facility] [place] and Med Anterior: Spine Cervical [employer] 8801-045 16DA / / Spacer Vikos 14.5x11.5x8mm 7d Stry-Spin 0948-85653t-9 13980 - [id number] Implanted:Qty : 1 on 08/09/2021 by Andrea Polanco DO at [facility] [place] and Med Anterior: Spine Cervical [employer] 06/12/2025 2504-214 08L / [id number] / Spacer Vikos 14.5x11.5x7mm 7d Stry-Spin 6663-99658s-7 03305 - [id number] Implanted:Qty : 1 on 08/09/2021 by Andrea Polanco DO at [facility] [place] and Med Anterior: Spine Cervical [employer] 10/24/2025 2504-214 07L / [id number] / Spacer Vikos 14.5x11.5x7mm 7d Stry-Spin 1826-61788c-4 58769 - [id number] Implanted:Qty : 1 on 08/09/2021 by Andrea Polanco DO at [facility] [place] and [facility] Anterior: Spine Cervical [employer] 08/02/2025 2504-214 07L / [id number] [id number] / Hip Cup Marie Tpr 52mm Sz3 Crng-Manu 321.03.352-63 6960 - [id number] Implanted:Qty : 1 on 12/29/2022 by Clifton Esteban MD at [facility] [place] and [facility] Right: Hip [employer] [id number] 10/13/2027 321.03.3 52 / / [id number] Screw Marie 6.5x25mm Crng-Manu 321.025-34676 7 - [id number] Implanted:Qty : 1 on 12/29/2022 by Clifton Esteban MD at [facility] [place] and Med Right: Hip [employer] [id number] 09/02/2027 321.025 / / [id number] Screw Marie 6.5x20mm Crng-Manu 321.020-89756 6 - [id number] Implanted:Qty : 1 on 12/29/2022 by Clifton Esteban MD at [facility] [place] and Med Right: Hip [employer] [id number] 10/02/2027 321.020 / / [id number] Marie Liner Ecima Neutral Offset Implanted:Qty : 1 on 12/29/2022 by Clifton Esteban MD at [facility] [place] and Med Right: Hip [employer] 10/29/2027 322.03.6 36 / / [id number] Explanted Type Area Wafer Line Worker Device Identifier Shelf Expiration Date Model / Serial / Lot Acetabular Shell Cluster Hole Sz 54mm - [id number] - [id number] Implanted:Qty: 1 on 04/07/2018 by Bairon Adame MD at [facility] [place] and Med Explanted:Qty: 1 on 02/11/2023 at [facility] [place] and [facility] Left: Hip RENOVI 12/13/2021 1501-121 -05 3553-2 Advance Directives For more information, please contact: [phone] Documents on File Type Date Recorded 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 Full Code 08/09/2021 12:40 PM 08/12/2021 9:22 PM This code status was ascertained in the following way: discussion with patient . Care Teams Teacher Associate Relationship Specialty Start Date End Date Diana Martinez PA [address] [place] [address] PCP - General Physician Corporate Officer 12/29/22
--- OUTSIDE RECORDS SUMMARY | 2024-11-07 17:33 | XMS_ITS | Clinical Summary ---
Author Organization [address] Address [address] [place] [address] [place] [address] Phone Care Team Providers Care Trailer Technician Name Role Phone Floyd Romero MD Primary Care Provider Allergies Active Allergy Reactions Criticality Noted Date Comments Amoxicillin Hives,Rash Medium 03/18/2018 rash Latex Itching Low 02/05/2022 C/O: itching C/O: itching Morphine Hives,Rash Low 10/12/2010 Other reaction(s): rash Doxycycline Calcium 01/28/2024 Medications aspirin 81 mg EC tablet Take 1 [...] Encounters Date Type Department Care Team Description 11/04/2024 2:30 PM EST Treatment Pelvic Floor Rehabilitation - [address] [phone] Yessica Sanchez, PT Urinary incontinence, unspecified type (Primary Dx); Constipation, unspecified constipation type; Urgency of urination; Pelvic pain; Muscle spasm; Muscle weakness 10/17/2024 9:20 AM EST Office Visit Gastroenterology - 299 [facility] [address] [phone] Jaycee Hilario PA Right lower quadrant abdominal pain (Primary Dx); Weight loss 09/30/2024 9:00 AM EST Treatment Pelvic Floor Rehabilitation - [address] [phone] Yessica Sanchez, PT Urinary incontinence, unspecified type (Primary Dx); Constipation, unspecified constipation type; Urgency of urination; Pelvic pain; Muscle spasm; Muscle weakness 09/29/2024 2:00 PM EST Office Visit Urogynecology - [place] [address] [place] [address] Kiersten Sherwood NP Pelvic pain in female (Primary Dx); Urinary incontinence, unspecified type; Urgency of urination; Nocturia 09/19/2024 1:47 PM EST - 09/19/2024 11:59 PM EST Hospital Encounter [facility] CT Scan [address] [place] [phone] Weight loss, non-intentional; Right-sided abdominal pain of unknown cause Discharge Disposition: Home or Self Care 09/13/2024 9:00 AM EST Office Visit Gastroenterology - [address] [place] [phone] Jaycee Hilario PA Right-sided abdominal pain of unknown cause (Primary Dx); Weight loss, non-intentional 09/13/2024 Telephone Gastroenterology - [address] [phone] Jaycee Hilario PA 09/08/2024 7:53 AM EST - 09/08/2024 11:59 PM EST Hospital Encounter [facility] Ultrasound [address] [place] [phone] Right-sided abdominal pain of unknown cause; Early satiety Discharge Disposition: Home or Self Care from Last 3 Months Immunizations Name Administration [...] deficiency 12/24/2023 Vitamin D deficiency 12/24/2023 Epilepsy (CMS/HCC) Stroke (CMS/HCC) Family History Medical History Relation Name Comments Hypertension Brother back issues Celiac disease Daughter Alicja Hypertension Father Chasity Prostate cancer Father Anthonym HTN Pancreatic cancer Maternal Grandfather Ovarian cancer Maternal Grandmother Other: Sepsis Mother Heart attack Paternal Grandfather Dont know Breast cancer Paternal Grandmother 70s Hypertension Sister Violeta No Known Problems Son Relation Name Status Comments Brother Alive Daughter Alicja Alive Father Anthonym Maternal Grandfather Maternal Grandmother Mother Paternal Grandfather [...] care for your loved ones. For example, vocational childcare teacher or elderly care for an older adult? No 07/30/2024 Education Answer Date Recorded Do you think completing more education or training, like finishing a GED, going to college, or learning a trade, would be helpful for you? No 07/30/2024 Living Situation Answer Date Recorded What is your living situation? 1 09/29/2023 Comments No Sex and Gender Information Value Date Recorded Sex Assigned at Female 09/14/2024 12:15 PM EST Legal Sex Female 9:59 AM EST Gender Identity Female 09/14/2024 12:15 PM EST Sexual Orientation Straight 09/14/2024 3: 25 PM EST Obstetrics History Para Term AB IAB SAB Ectopic Multiple Livin g Live Births 1 1 Date Outcome GA Total Labor [...] EST Inhaled Oxygen Concentration - - Weight 87.1 kg (192 lb) 10/17/2024 9:20 AM EST Height 167.6 cm (5' 6 ) 10/17/2024 9:20 AM EST Body Mass Index 30.99 10/17/2024 9:20 AM EST Plan of Treatment Upcoming Encounters Date Type Department Care Team (Late st Contact Info) Description 11/11/2024 11:00 AM EST Treatment Pelvic Floor Rehabilitation - [address] [phone] Yessica Sanchez, PT [address] [address] 11/18/2024 2:00 PM EDT Treatment Pelvic Floor Rehabilitation - [address] [phone] Yessica Sanchez, PT [address] [address] 11/25/2024 11:00 AM EDT Treatment Pelvic Floor [facility] - [address] [phone] Yessica Sanchez, PT [address] [address] 12/02/2024 1:00 PM EDT Treatment Pelvic Floor Rehabilitation - [address] [phone] Yessica Sanchez, PT [address] [address] 12/09/2024 2:00 PM EDT Treatment Pelvic Floor Rehabilitation - [address] [phone] Yessica Sanchez, PT [address] [address] 01/31/2025 8:30 AM EDT Office Visit [facility] - [address] [phone] Suyapa Saini PA [address] [place], [place] 03/21/2025 1:50 PM EDT Appointment Radiology Department - [address] [phone] Health Maintenance Due Date Last Done Comments Cervical Cancer Screening: Pap Smear 1986 Pneumococcal Vaccine: 50+ Years (1 of 1 - PCV) 2015 Zoster Vaccines (2 of 2) 09/02/2021 07/08/2021 [...] patient's age to complete this topic Meningococcal B Vacine Aged Out No lo nger eligible based on patient's age to complete [...] this topic Medical Devices Implanted Type Area Parts Salvager Device Identifier Shelf Expiration Date Model / Serial / Lot Surgiflo Hemostatic Matrix [facility] [id number] Implanted:Qty : 2 on 08/09/2021 by Andrea Polanco DO Implants N/A: Spine Cervical [facility] 11/04/2022 2991 / / [id number] Size 5 Standard Tapered Stem Cementless Implanted:Qty : 1 on 12/29/2022 by Clifton Esteban MD Joints Right: Hip [id number] 10/01/2027 / / [id number] 36 +4 Femoral Head Implanted:Qty : 1 on 12/29/2022 by Clifton Esteban MD Joints Right: Hip [id number] 07/04/2026 / / [id number] Description:Renata 36mm +4mm Spacer Vikos 14.5x11.5x8mm 7d Stry-Spin 0265-91380o-5 17022 - [id number] Implanted:Qty : 1 on 08/09/2021 by Andrea Polanco DO N/A: Spine Cervical [employer] 06/12/2025 2504-214 08L / [id number] / Spacer Vikos 14.5x11.5x7mm 7d Stry-Spin 7610-47862i-0 12567 - [id number] Implanted:Qty : 1 on 08/09/2021 by Andrea Polanco DO N/A: Spine Cervical [employer] 10/24/2025 2504-214 07L / [id number] 1076 / Spacer Vikos 14.5x11.5x7mm 7d Stry-Spin 9363-48728t-1 34329 - [id number] Implanted:Qty : 1 on 08/09/2021 by Andrea Polanco DO N/A: Spine Cervical [employer] 08/02/2025 2504-214 07L / [id number] / Plate [place] 57mm 3 Level Bone Stry-K2m Md48-99x29s-5 16610 Implanted:Qty : 1 on 08/09/2021 by Andrea Polanco DO N/A: Spine Cervical [employer] IX38-39T 57V / / Screw [place] Self-Start 4x16mm Stry-K2m 8801-26877ed- [id number] Implanted:Qty : 7 on 08/09/2021 by Andrea Polanco DO N/A: Spine Cervical [employer] 8801-040 16DA / / Screw [place] 16mm 4.5mm Self St Stry-Howm [id number]- [id number] Implanted:Qty : 1 on 08/09/2021 by Andrea Polanco DO N/A: Spine Cervical [employer] 8801-045 16DA / / Screw Marie 6.5x20mm Crng-Manu 321.020-12206 6 Implanted:Qty : 1 on 12/29/2022 by Clifton Esteban MD Right: Hip [employer] [id number] 10/02/2027 321.02 0 / / [id number] Marie Liner Ecima Neutral Offset Implanted:Qty : 1 on 12/29/2022 by Clifton Esteban MD Right: Hip [employer] 10/29/2027 322.03.6 36 / / [id number] Hip Cup Marie Tpr 52mm Sz3 Crng-Manu 321.03.352-63 6960 Implanted:Qty : 1 on 12/29/2022 by Clifton Esteban MD Right: Hip [employer] [id number] 10/13/2027 321.03 .3 52 [id number] Screw Marie 6.5x25mm Creamon-Manu 321.025-51430 7 Implanted:Qty : 1 on 12/29/2022 by Clifton Esteban MD Right: Hip [employer] [id number] 09/02/2027 321.02 5 [id number] Procedures Procedure Name Priority Date/Time Associated Diagnosis [...] abdominal pain of unknown cause Early satiety SCREENING MAMMOGRAPHY BI 2-VIEW BREAST INC CAD [...] in the abdomen and pelvis. Telerad DAVION ([id number]) -------- FINAL REPORT -------- Dictated By: Paula Cedeño Dictated Date: 09/27/2024 09:42 ET Assigned Physician: Paula Cedeño Reviewed and Electronically Signed By: Paula Cedeño Signed Date: 09/27/2024 09:48 ET Workstation ID: [id number] Transcribed By: Self Edit Transcribed Date: 09/27/2024 09:42 ET Narrative 09/27/2024 9:48 AM EST History: Right-sided abdominal pain, nausea, early satiety and unintentional weight loss. Comparison: Right upper quadrant ultrasound 09/08/24, thoracic CTA 08/26/21 Technique: Helical volumetric imaging of the abdomen and pelvis was performed following oral contrast and during the uneventful intravenous administration of 90 cc Isovue-370. DLP: 1097.10 mGy/cm Full Throttle [employer] VCT Iterative reconstruction technique Findings: The liver [...] of 90 cc Isovue-370. DLP: 1097.10 mGy/cm [employer]ro[employer] VCT Iterative reconstruction technique Findings: The liver [...] in the abdomen and pelvis. Domi RICARDO ([id number]) -------- FINAL REPORT -------- Dictated By: Paula Cedeño Dictated Date: 09/27/2024 09:42 ET Assigned Physician: Paula Cedeño Reviewed and Electronically Signed By: Paula Cedeño Signed Date: 09/27/2024 09:48 ET Workstation ID: [id number] Transcribed By: Self Edit Transcribed Date: 09/27/2024 09:42 ET us Jaycee RICARDO IMG CT PROCEDURES Final Result * Basic metabolic panel (09/15/2024 9:58 AM [...] 15.6 LAB CHEMISTRY METHOD 09/15/2024 12:40 PM EST [facility] Calcium 9.9 8.5 - 10.5 mg/dL LAB CHEMISTRY METHOD 09/15/2024 12:40 PM EST [facility] Blood Venous blood specimen / Unknown Venipuncture / Unknown 09/15/2024 9:58 AM EST 09/15/2024 10:35 AM EST us Jaycee RICARDO LAB BLOOD ORDERABLES Final Resu lt [facility] [address] [place] [address], [place] [phone] * US Abdomen Limited (09/08/2024 8:26 AM [...] Signed Date: 09/13/2024 11:33 ET Workstation ID: [id number] Transcribed By: Self Edit Transcribed Date: 09/13/2024 [...] Signed Date: 09/13/2024 11:33 ET Workstation ID: [id number] Transcribed By: Self Edit Transcribed Date: 09/13/2024 11:31 ET Jaycee RICARDO IMG US PROCEDURES Final Result * HIV 1,2 antibody, p24 antigen with reflex to differentiation (08/12/2024 7:54 AM EST) HIV Combo AB/AG Negative Negative LAB CHEMISTRY METHOD 08/12/2024 10:52 AM EST [facility] Blood Venous blood specimen / Unknown Venipuncture / Unknown 08/12/2024 7:54 AM EST 08/12/2024 7:54 AM EST Narrative [facility] - 08/12/2024 10:52 AM EST This [...] HIV screening. Floyd Romero MD LAB BLOOD ORDERABLES F inal Result [facility] [address] [place] [address], * Lipid panel with reflex to direct LDL (08/12/2024 7:54 AM EST) Pathologist [facility] Cholesterol 175 0 - 200 mg/dL LAB CHEMISTRY METHOD 08/12/2024 11:01 AM EST [facility] Triglycerides 90 0 - 150 mg/dL LAB CHEMISTRY METHOD 08/12/2024 11:01 AM EST [facility] HDL 94 >=40 mg/dL LAB CHEMISTRY METHOD 08/12/2024 11:01 AM [facility] LDL Calculated 63 0 - 100 mg/dL LAB CHEMISTRY METHOD 08/12/2024 11:01 AM [facility] VLDL Cholesterol Jai 18 mg/dL LAB CHEMISTRY METHOD 08/12/2024 11:01 AM [facility] Non HDL Chol. (LDL+VLDL) 81 <145 mg/dL LAB CHEMISTRY METHOD 08/12/2024 11:01 AM [facility] Chol/HDL Ratio 1.9 0.0 - 4.4 LAB CHEMISTRY METHOD 08/12/2024 11:01 AM [facility] Blood Venous blood specimen / Unknown Venipuncture / Unknown 08/12/2024 7:54 AM EST 08/12/2024 7:54 AM EST Floyd Romero MD LAB BLOOD ORDERABLES F inal Result [facility] [address] [place] [address], [place] [phone] * CBC auto differential (08/12/2024 7:54 AM [...] LAB HEMETOLOGY METHOD 08/12/2024 10:13 AM EST [facility] Lymphocytes Absolute 1.77 1.00 - 5.00 K/mcL LAB HEMETOLOGY METHOD 08/12/2024 10:13 AM EST [facility] Monocytes Absolute 0.42 0.20 - 1.00 K/mcL LAB HEMETOLOGY METHOD 08/12/2024 10:13 AM EST [facility] Eosinophils Absolute 0.09 0.00 - 0.50 K/[facility] LAB HEMETOLOGY METHOD 08/12/2024 10:13 AM EST [facility] Basophils Absolute 0.03 0.00 - 0.20 K/[facility] LAB HEMETOLOGY METHOD 08/12/2024 10:13 AM [facility] Immature Granulocytes Absolute 0.01 0.00 - 0.03 K/[facility] LAB HEMETOLOGY METHOD 08/12/2024 10:13 AM [facility] Blood Venous blood specimen / Unknown Venipuncture / Unknown 08/12/2024 7:54 AM EST 08/12/2024 7:54 AM EST Jaycee RICARDO LAB BLOOD ORDERABLES Final Resu lt [facility] [address] [place] [address], * Vitamin D 25 hydroxy (08/12/2024 7:54 AM EST) Pathologist [facility] Vit D, 25-Hydroxy 37.7 30.0 - 80.0 ng/mL LAB CHEMISTRY METHOD 08/12/2024 10:12 AM EST [facility] Blood Venous blood specimen / Unknown Venipuncture / Unknown 08/12/2024 7:54 AM EST 08/12/2024 7:54 AM EST Floyd Romero MD LAB BLOOD ORDERABLES F inal Result Performing Organization Address [facility]/ZIP Co de Phone Number [facility] [address] [place] [address], [place] [phone] * Lipase (08/12/2024 7:54 AM EST) [facility] Lipase 24 13 - 75 unit/L LAB CHEMISTRY METHOD 08/12/2024 10:04 AM EST [facility] Blood Venous blood specimen / Unknown Venipuncture / Unknown 08/12/2024 7:54 AM EST 08/12/2024 7:54 AM EST us Jaycee RICARDO LAB BLOOD ORDERABLES Final Resu lt Performing Organization Address [facility] de Phone Number [facility] [address] [place] [address], [place] [phone] * (ABNORMAL) Vitamin B12 (08/12/2024 7:54 AM EST) [facility] Vitamin B-12 1,234(H) 250 - 900 pcg/mL LAB CHEMISTRY METHOD 08/12/2024 10:30 AM EST [facility] Blood Venous blood specimen / Unknown Venipuncture / Unknown 08/12/2024 7:54 AM EST 08/12/2024 7:54 AM EST Floyd Romero MD LAB BLOOD ORDERABLES F inal Result Performing Organization Address [facility]/ZIP Co de Phone Number [facility] [address] [place] [address], [place] [phone] * Comprehensive metabolic panel (08/12/2024 7:54 AM EST) [facility] Sodium 143 133 - 145 mmol/L LAB CHEMISTRY METHOD 08/12/2024 10:30 AM EST [facility] Potassium 4.3 3.5 - 5.5 mmol/L LAB CHEMISTRY METHOD 08/12/2024 10:30 AM [facility] Chloride 109 96 - 110 mmol/L LAB CHEMISTRY METHOD 08/12/2024 10:30 AM [facility] CO2 28 21 [...] g/dL LAB CHEMISTRY METHOD 08/12/2024 10:30 AM EST [facility] Albumin 4.3 3.2 - 5.0 g/dL LAB CHEMISTRY METHOD 08/12/2024 10:30 AM EST [facility] Total Bilirubin 0.6 0.0 - 1.4 mg/dL LAB CHEMISTRY METHOD 08/12/2024 10:30 AM EST [facility] Blood Venous blood specimen / Unknown Venipuncture / Unknown 08/12/2024 7:54 AM EST 08/12/2024 7:54 AM EST us Jaycee RICARDO LAB BLOOD ORDERABLES Final Resu lt [facility] ([facility]) [facility] [address] [place] [address], * SCREENING MAMMOGRAPHY BI 2-VIEW BREAST INC [...] months. BI-RADS: Category 1: Negative Suyapa Parveen PA IMG XR PROCEDURES Final Result * Hepatitis C Screening (12/24/2023) Hepatitis C Screening abstracted Historical Provider HEALTH MAINTENANCE Final Result * Colonoscopy (03/18/2021) Colonoscopy no interpretation , abstracted Anatomical Region Laterality Modality Other Historical Provider HEALTH MAINTENANCE Final Result from Last 3 Months or Most Recently Relevant to Health Maintenance Insurance MEDICAID - [place] [employer] MEDICARE Care Teams Trailer Technician Relationship Specialty Start Date End Date Floyd Romero MD [address] [place] [address] PCP - General 09/23/23
--- OUTSIDE RECORDS SUMMARY | 2024-11-07 17:33 | XMS_ITS | Encounter Summary ---
Author Organization [facility] Address [address] [place] [address] Care Team Providers Care South Asian History Professor Name Role Phone Diana Martinez Primary Care Provider + [phone] Carl Goodman MD Unavailable Osmar Chicas MD Unavailable [phone] Encounter Details Date Type Department Care Team (Late st Contact Info) Description 10/13/2023 Scanned Document [facility] Physicians Department of Internal Medicine [place] [address] [place] [address] Diana Martinez PA [address] [place] [address] Social History Tobacco Use Types Packs/Day Years [...] on filedocumented in this encounter Care Teams South Asian History Professor Relationship Specialty Start Date End Date Diana Martinez PA [address] [place] [phone] PCP - General 01/03/22 Carl Goodman MD [address] [address] Surgery, Orthopedic 01/03/22 Osmar Chicas MD [address] [place] [address] Cardiovascular Disease 01/03/22 documented as of this encounter
--- OUTSIDE RECORDS SUMMARY | 2024-11-07 17:33 | XMS_ITS | Clinical Summary ---
Author Organization [facility] Address [address] [place] [address] Care Team Providers Care Inspector Mechanical Name Role Phone Diana Martinez Primary Care Provider [phone]- [phone] Carl Goodman MD Unavailable Osmar Chicas MD Unavailable [phone] Allergies Active Allergy Reactions Criticality Noted Date [...] 10/19/2020, 09/28/2020 Medical Devices Implanted Type Area Stereotyper Device Identifier Shelf Expiration Date Model / Serial / Lot [id number] Spacer Spinal [id number] Rise-L 10d Nonst - [id number] Implanted:Qty: 2 on 02/05/2022 by Carl Goodman MD at [facility] Cage N/A: Spine Lumbar [employer] [id number] / / [id number] Voyager Mas Screw Implanted:Qty: 2 on 02/05/2022 by Carl Goodman MD at [facility] Screw N/A: Spine Lumbar [employer] MINIMALLY INVASIVE T [id number] / / [id number] Screw Set 5.5/6mm Cd Hzn Soleral Vygr Nonst Lf - [id number] Implanted:Qty: 6 on 02/05/2022 by Carl Goodman MD at [facility] Screw N/A: Spine Lumbar [employer] MINIMALLY INVASIVE T [id number] / / [id number] Screw Bone Spine Cd Hzn Vygr 50mm 6.5mm Ma Nonst 5.5mm Nestor - [id number] Implanted:Qty: 2 on 02/05/2022 by Carl Goodman MD at [facility] Spine N/A: Spine Lumbar [employer] MINIMALLY INVASIVE T [id number] / / [id number] Screw Bone Spine Cd Hzn Vygr 45mm 6.5mm Ma Nonst 5.5mm Nestor - [id number] Implanted:Qty: 2 on 02/05/2022 by Carl Goodman MD at [facility] Spine N/A: Spine Lumbar [employer] MINIMALLY INVASIVE T [id number] / / [id number] Tab Fixation 5.5/6mm Spine Dry Starch Operator Sleeve - [id number] Implanted:Qty: 12 on 02/05/2022 by Carl Goodman MD at [facility] Spine N/A: Spine Lumbar [employer] MINIMALLY INVASIVE T [id number] / / [id number] Graft Bone 23mm 14mm Infs Sm Spine Rhbmp-2 Bvn Collagen - [id number] Implanted:Qty: 1 on 02/05/2022 by Carl Goodman MD at [facility] Tissue N/A: Spine Lumbar [employer] MINIMALLY INVASIVE T 06/06/2024 [id number] / / [id number] Graft Bone Kore Fiber Marcial Bone Fiber 5cc Algrf Mld High - [id number] Implanted:Qty: 1 on 02/05/2022 by Carl Goodman MD at [facility] Tissue N/A: Spine Lumbar [employer] F[employer] 02/21/2024 [id number] / [id number] / 5.5/6.0 Sv Cap Implanted:Qty: 6 on 02/05/2022 by Carl Goodman MD at [facility] N/A: Spine Lumbar [employer] MINIMALLY INVASIVE T [id number] / / 5.5 Ccm Prec Nestor 80mm Implanted:Qty: 2 on 02/05/2022 by Carl Goodman MD at [facility] N/A: Spine Lumbar [employer] MINIMALLY INVASIVE T [id number] / / Explanted Type Area Stereotyper Device Identifier Shelf Expiration Date Model / Serial / Lot [id number] Screw Bone Spine Schnz 120mm 4mm - [id number] Explanted:Qty: 1 on 02/05/2022 at [facility] Spine N/A: Spine Lumbar [employer] MINIMALLY INVASIVE T [id number] / / Description:supply item Advance Directives * Full Code (Latest Code Status on File) Date Activated Date Inactivated Comments 02/05/2022 6:30 PM * Full Code Date Activated Date Inactivated Comments 02/05/2022 10:09 AM 02/05/2022 6:30 PM Care Teams Inspector Mechanical Relationship Specialty Start Date End Date Diana Martinez PA [address] [place] [address] PCP - General 01/03/22 Carl Goodman MD [address] [address] Surgery, Orthopedic 01/03/22 Osmar Chicas MD [address] [place] [address] Cardiovascular Disease 01/03/22
--- OUTSIDE RECORDS SUMMARY | 2024-11-07 17:33 | XMS_ITS | Encounter Summary ---
Author Organization [facility] Address [address] [place] [address] Care Team Providers Care Client Relationship Executive Name Role Phone Diana Martinez Primary Care Provider [phone]- [phone] Carl Goodman MD Unavailable Osmar Chicas MD Unavailable [phone] Encounter Details Date Type Department Care Team (Late st Contact Info) Description 05/01/2022 Erroneous Encounter OA CONVERSION DEPT [address] [place] [address] ProviderLorena MD Social History Tobacco [...] on filedocumented in this encounter Care Teams Client Relationship Executive Relationship Specialty Start Date End Date Diana Martinez PA [address] [address] PCP - General 01/03/22 Carl Goodman MD [address] [address] Surgery, Orthopedic 01/03/22 Osmar Chicas MD [address] [place] [address] Cardiovascular Disease 01/03/22 documented as of this encounter
--- OUTSIDE RECORDS SUMMARY | 2024-11-07 17:33 | XMS_ITS | Encounter Summary ---
Author Organization [facility] Address [address] [place] [address] Care Team Providers Care Cable Braider Name Role Phone Floyd Romero MD Primary Care Provider Reason for Visit * Reason Comments Follow-up 4 wk fu Encounter Details Date Type Department Care Team (Late st Contact Info) Description 10/17/2024 9:20 AM EST Office Visit Gastroenterology - [address] [place] [phone] Jaycee Hilario PA [address] [place] [address] Right lower quadrant abdominal pain (Primary Dx); Weight loss Social History Tobacco Use Types Packs/Day Years [...] for your loved ones. For example, children's librarian or elderly care for an older adult? [...] Orientation Straight 09/14/2024 3: 25 PM EST documented as of this encounter Last Filed Vital Signs Vital Sign Reading Time Taken Comments Blood Pressure - - Pulse - - Temperature - - Respiratory Rate - - Oxygen Saturation - - Inhaled Oxygen Concentration - - Weight 87.1 kg (192 lb) 10/17/2024 9:20 AM EST Height 167.6 cm (5' 6 ) 10/17/2024 9:20 AM EST Body Mass Index 30.99 10/17/2024 9:20 AM EST documented in this encounter Progress Notes * DAVION Wang - 10/17/2024 9:20 AM EST CHIEF COMPLAINT: Follow-up (4 wk fu) HPI: Nina Bella is a 59 y.o. old female who was originally referred to us by Floyd Vaughan MD now presents to the gastroenterology department today for a follow up of right sided abdominal pain. Completed a CT scan for this concern along with history of unintended weight loss on 09/19/24. CT scan shows no significant abnormality of the abdomen or pelvis. Presents today stating she is doing better Bowel movements have been better since starting miralax and fiber supplement. Taking 1/2 capful of miralax every other day. Abdominal pain has improved as well. Started protein shakes. Drinking daily but does feel full for most of the day following a shake. Typically drinking in AM and waiting until dinner for another meal. Has also started to eat more substantial meals recently as well. Previously she was only ago to tolerate liquids. Weight down from 205lbs to 197lbs in 6 weeks. Weight 197lb last visit, down to 192lbs today. Colonoscopy/EGD 07/07/2024, negative celiac workup following procedure. Negative CT Scan abdomen/pelvis Saw urology as recommended for urinary concerns, they recommended pelvic floor therapy. Patient reports since starting she has had a lot of improvement. ROS: GENERAL: No malaise, significant weight loss or fever HEENT: No changes in hearing or vision, nose bleeds or swallowing problems NECK: No lumps, goiter, pain or significant neck swelling RESPIRATORY: No cough, wheezing or shortness of breath CARDIOVASCULAR: No chest pain, leg swelling or palpitations GI: No hematochezia, melena, nausea or vomiting MUSCULOSKELETAL: No joint pain or swelling, back pain, or muscle pain. SKIN: No lesions, rash or itching The remainder of the review of systems is reviewed and negative. PROBLEM LIST: Patient Active Problem List Diagnosis Adenoma of colon Anxiety and depression Gastroesophageal reflux disease Low magnesium level Other hyperlipidemia Primary hypertension PTSD (post-traumatic stress disorder) Seizures ([facility]) Class 2 severe obesity with serious comorbidity and body mass index (BMI) of 36.0 to 36.9 in adult ([facility]) History of non anemic vitamin B12 deficiency Past Medical History: Diagnosis Date Epilepsy (CMS/HCC) Hypertension Stroke ([facility]) Vitamin B12 deficiency 12/24/2023 DX:Vitamin B12 deficiency [...] Types: Cigarettes Quit date: 09/07/2017 Years since quittin.1 Smokeless tobacco: Never Substance Use Topics Alcohol use: Not Currently FAMILY HISTORY: Family History Problem Relation Name Age of Onset Other (Other: Sepsis) Mother Prostate cancer Father Chasity HTN Hypertension Father Chasity Hypertension Sister Violeta Hypertension Brother back issues [...] Vitals Ht 1.676 m (66 ) Wt 87.1 kg (192 lb) BMI 30.99 kg/m?? OB Status Postmenopausal Smoking Status Former BSA 1.97 m?? APPEARANCE: Alert and in no acute distress EYES: PERRLA, conjunctiva and sclera normal. ABDOMEN: soft non tender, no ascites, guarding, or rebound, no organomegaly. EXTREMITIES: Extremities warm and well perfused SKIN: Skin color, texture, turgor normal. NEURO: Awake, alert and oriented, normal ROM LABS: CT Abdomen Pelvis w Contrast Narrative: History: Right-sided abdominal pain, nausea, early satiety and unintentional weight loss. Comparison: Right upper quadrant ultrasound 09/08/24, thoracic CTA 08/26/21 Technique: Helical volumetric imaging of the abdomen and pelvis was performed following oral contrast and during the uneventful intravenous administration of 90 cc Isovue-370. DLP: 1097.10 mGy/cm Datawatch [employer] VCT Iterative reconstruction technique Findings: The liver is normal in size and configuration. A 6 mm circumscribed round hypoattenuating lesion inthe medial segment left lobe (image 45 series 3) is unchanged from 202, considered benign, most likely a cyst. The portal and hepatic veins are patent. The gallbladder is physiologically distended. No evidence of biliary obstruction is seen. The spleen is top normal in size, approximately 13 cm in maximum diameter, unchanged from 2020. Thepancreas and adrenal glands are unremarkable. The kidneys [...] bilateral total hip prostheses are partially imaged. Impression: Impression: No significant abnormality identified in the abdomen and pelvis. Telerad DAVION ([id number]) -------- FINAL REPORT -------- Dictated By: Paula Cedeño Dictated Date: 09/27/2024 09:42 ET Assigned Physician: Paula Cedeño Reviewed and Electronically Signed By: Paula Cedeño Signed Date: 09/27/2024 09:48 ET Workstation ID: [id number] Transcribed By: Self Edit Transcribed Date: 09/27/2024 09:42 ET Assessment/Plan Assessment & Plan Right lower quadrant abdominal pain Improved since starting miralax and fiber supplementation. Continue fiber supplement daily and miralax every other day. If improved with miralax, suspect pain may be constipation-induced. CT scan and colonoscopy negative. Reassured patient. Weight loss Continued weight loss. Patient denies weight loss supplement or GLP-1 medications. As stated, negative GI workup, continue to monitor weight. Defer to PCP for further workup. Continue protein shakes daily. Follow up for any future GI concerns as needed. Gastroenterology and Hepatology Practice [facility] [email or web address] [phone] [place] [address]. [address] [place] [address] DAVION Wang documented in this encounter Plan of Treatment Upcoming Encounters Date Type Department Care Team (Late st Contact Info) Description 11/11/2024 11:00 AM EST Treatment Pelvic Floor Rehabilitation - [address] [phone] Yessica Sanchez, PT [address] [place] [address] 11/18/2024 2:00 PM EDT Treatment Pelvic Floor Rehabilitation - [address] [phone] Yessica Sanchez, PT [address] [address] 11/25/2024 11:00 AM EDT Treatment Pelvic Floor Rehabilitation - [address] [phone] Yessica Sanchez, PT [address] [address] 12/02/2024 1:00 PM EDT Treatment Pelvic Floor Rehabilitation - [address] [phone] Yessica Sanchez, PT [address] [address] 12/09/2024 2:00 PM EDT Treatment Pelvic Floor Rehabilitation - [address] [phone] Yessica Sanchez, PT [address] [address] 01/31/2025 8:30 AM EDT Office Visit Adult Medicine East - [address] [phone] Suyapa Saini PA [address] [place] [address] 03/21/2025 1:50 PM EDT Appointment Radiology Department - [address] [phone] documented as of this encounter Visit Diagnoses Diagnosis Right lower quadrant abdominal pain- Primary Weight loss Loss of weight Encounter for screening mammogram for breast cancer documented in this encounter Additional Health Concerns Assessment Noted Time PHQ-9 Depression Total Score: 11 024 12:57 PM EST documented as of this encounter Care Teams Cable Braider Relationship Specialty Start Date End Date Floyd Romero MD [address] [place] [address] PCP - General 09/23/23 documented as of this encounter
--- OUTSIDE RECORDS SUMMARY | 2024-11-07 17:33 | XMS_ITS | Encounter Summary ---
Author Organization [facility] Address [address] [place] [address] Care Team Providers Care Survey Crew Chief Name Role Phone Diana Martinez Primary Care Provider [phone]- [phone] Carl Goodman MD Unavailable Osmar Chicas MD Unavailable Encounter Details Date Type Department Care Team (Late st Contact Info) Description 06/19/2022 Erroneous Encounter [facility] CONVERSION DEPT [address] [place] [address] Brian Chong APRN [address] [place] [address] Social History Tobacco Use Types Packs/Day Years [...] on filedocumented in this encounter Care Teams Survey Crew Chief Relationship Specialty Start Date End Date Diana Martinez PA [address] [place] [id number] PCP - General 01/03/22 Carl Goodman MD [address] [address] Surgery, Orthopedic 01/03/22 Osmar Chicas MD [address] [place] [address] Cardiovascular Disease 01/03/22 documented as of this encounter
--- OUTSIDE RECORDS SUMMARY | 2024-11-07 17:33 | XMS_ITS | Encounter Summary ---
Author Organization [facility] Address [address] [place] [address] Care Team Providers Care Recruitment Intern Name Role Phone Diana Martinez Primary Care Provider [phone]- [phone] Carl Goodman MD Unavailable Osmar Chcias MD Unavailable [phone] Encounter Details Date Type Department Care Team (Late st Contact Info) Description 11/12/2022 Scanned Document [facility] Department of Internal Medicine [place] [address] [place] [address] Diana Martinez PA [address] [place] [address] Social History Tobacco Use Types [...] on filedocumented in this encounter Care Teams Recruitment Intern Relationship Specialty Start Date End Date Diana Martinez PA [address] [place] [address] PCP - General 01/03/22 Carl Goodman MD [address] [address] Surgery, Orthopedic 01/03/22 Osmar Chicas MD [address] [place] [address] Cardiovascular Disease 01/03/22 documented as of this encounter
--- OUTSIDE RECORDS SUMMARY | 2024-11-07 17:33 | XMS_ITS | Encounter Summary ---
Author Organization [facility] Address [address] [place] [address] Care Team Providers Care Brusher Name Role Phone Diana Martinez Primary Care Provider [phone]- [phone] Carl Goodman MD Unavailable Osmar Chicas MD Unavailable Encounter Details Date Type Department Care Team (Late st Contact Info) Description 05/20/2022 Erroneous Encounter [facility] CONVERSION DEPT [address] [place] [address] Anthony Landeros MD [address] [facility] [address] [place], [place] [id number] Social History Tobacco Use Types Packs/Day Years [...] on filedocumented in this encounter Care Teams Brusher Relationship Specialty Start Date End Date Diana Martinez PA [address] [place] [address] PCP - General 01/03/22 Carl Goodman MD [address] [address] Surgery, Orthopedic 01/03/22 Osmar Chicas MD [address] [address] Cardiovascular Disease 01/03/22 documented as of this encounter
--- OUTSIDE RECORDS SUMMARY | 2024-11-07 17:33 | XMS_ITS | Data Portability ---
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 [email or web address] Not available 11/13/2023 15:19:18 02/04/2024 02/04/2024 Patient is doing well status post C6-7 anterior cervical diskectomy with allograft fusion. She does have some lower back pain and radiculopathy to the right groin suspicious for L3 radiculopathy. [email or web address] Not available 02/04/2024 14:02:16 03/03/2024 03/03/2024 Patient is recovering with moderate reactivation of cervical spondylosis below the level of her fusion. Not available 03/03/2024 12:30:46 04/14/2024 04/14/2024 Patient is recovering status post anterior cervical discectomy with allograft fusion below the level of fusion at C6-7. [email or web address] Not available 04/14/2024 13:45:59 Plan of Treatment [...] serie s No observ ation record ed. [facility] [address] [place], [address], 10/12/2023 10:26:42 10/11/19 24 10/09/2023 XR, spine , scoli osis serie s No observ ation record ed. [facility] [address] [place], [address], 10/12/2023 10:34:03 10/21/19 24 10/20/2023 MRI, lumba r spine , w/o contr ast No observ ation record ed. [facility] [address] [place], [address], 10/22/2023 13:51:34 10/21/19 24 10/20/2023 MRI, cervi thu spine , w/o contr ast No observ ation record ed. [email or web address] [address] [place], [address], 10/22/2023 13:51:35 01/18/20 24 01/13/2024 elect aminta parmar am No observ ation record ed. [facility] Atention: Jose Rafael [address] [place], [address], 01/19/2024 09:17:55 01/22/20 24 01/18/2024 XR, cervi thu spine , 2 or 3 view No observ ation record ed. [facility] At[facility]: Jose Rafael [address] [place], [address], 01/26/2024 09:52:50 02/05/20 24 02/04/2024 XR, cervi thu spine , 2 or 3 view No observ ation record ed. [facility] (Medical Records) [address] [place], [address], 02/08/2024 10:04:41 02/05/20 24 02/04/2024 XR, cervi thu spine , 2 or 3 view No observ ation record ed. [facility] (Medical Records) [address] [place], [address], 02/08/2024 10:45:46 02/05/20 24 02/04/2024 XR, lumba r spine No observ ation record ed. [email or web address] Not Available 2023 10:45:23 02/05/20 24 02/04/2024 XR, lumba r spine No observ ation record ed. [facility] (Medical Records) [address] [place], [address], 02/08/2024 10:04:41 03/03/20 24 03/03/2024 XR, cervi thu spine , 2 or 3 view No observ ation record ed. [email or web address] [facility] (Medical Records) [address] [place], [address], 03/04/2024 09:49:59 03/03/20 24 03/03/2024 XR, cervi thu spine , 2 or 3 view No observ ation record ed. [email or web address] Not Available 2023 10:53:50 04/16/20 24 04/14/2024 XR, cervi thu spine , 2 or 3 view No observ [facility]ion [facility] ed. [facility] [address] [place], [address], 04/18/2024 11:22:21 04/16/20 24 04/14/2024 XR, cervi thu spine , 2 or 3 view No observ ation record ed. [facility] [address] [place], [address], 04/18/2024 12:55:18 04/18/20 24 04/14/2024 XR, cervi thu spine , 2 or 3 view No observ ation record ed. [email or web address] Not Available 2023 11:08:46 04/18/20 24 04/14/2024 XR, cervi thu spine , 2 or 3 view No observ ation record ed. [address], [address], 04/20/2024 10:07:20 Result Notes None recorded. Problems Name Problem SNOMED Code Status Onset Date Resolution Date Notes Provider Name and Address Organization Details Recorded Time Spinal stenosis in cervical region 47269977 Active DAVION De Jesus [address] [place] [address], [phone] , [facility] 4 15:19:08 Problem Notes None recorded. Procedures Surgical History Date Name Laterality Status Provider Name and Address Organization Details Recorded Time 3 total replacement of right hip joint completed Nabila Garcia [facility] 4 13:25:44 2 lumbar spinal fusion completed Nabila Garcia [facility] 02/04/2024 13:25:16 1 primary fusion of cervical spine completed Nabila Garcia [facility] 02/04/2024 13:25:01 0 shoulder surgery completed Nabila Garcia [facility] 02/04/2024 13:24:41 8 total replacement of left hip joint completed Nabila Garcia [facility] 02/04/2024 13:24:14 Imaging Results Imaging Date Name Status LastModified by Organization Details LastModified Time 12/16/2022 MRI, lumbar spine, w/o contrast completed [facility] Information not available 10/09/2023 13:15:44 10/09/2023 XR, spine, scoliosis series completed [address], [address], 10/12/2023 10:26:42 10/09/2023 XR, spine, scoliosis series completed [address], [address], 10/12/2023 10:34:03 10/20/2023 MRI, lumbar spine, w/o contrast completed [facility] [address] [place], [address], 10/22/2023 13:51:34 10/20/2023 MRI, cervical spine, w/o contrast completed [facility] [address] [place], [address], 10/22/2023 13:51:35 01/13/2024 electrocardiogram completed [facility] Atention: Jose Rafael [address] [place], [address], 01/19/2024 09:17:55 01/18/2024 XR, cervical spine, 2 or 3 view completed [facility] Atention: Jose Rafael [address] [place], [address], 01/26/2024 09:52:50 02/04/2024 XR, cervical spine, 2 or 3 view completed [facility] (Medical Records) [address] [place], [address], 02/08/2024 10:04:41 02/04/2024 XR, cervical spine, 2 or 3 view [email or web address] (Medical Records) [address] [place] [address], [address], 02/08/2024 10:45:46 02/04/2024 XR, lumbar spine completed Informat ion not available 02/08/2024 10:45:23 02/04/2024 XR, lumbar spine completed [email or web address] [facility] (Medical Records) [address] [place] [address], [address], 02/08/2024 10:04:41 03/03/2024 XR, cervical spine, 2 or 3 view completed [email or web address] [facility] (Medical Records) [address] [place] [address], [address], 03/04/2024 09:49:59 03/03/2024 XR, cervical spine, 2 or 3 view completed Information not available 03/04/2024 10:53:50 04/14/2024 XR, cervical spine, 2 or 3 view completed [email or web address] [address], [address], 04/18/2024 11:22:21 04/14/2024 XR, cervical spine, 2 or 3 view completed [email or web address], [address], 04/18/2024 12:55:18 04/14/2024 XR, cervical spine, 2 or 3 view completed Information not available 04/19/2024 11:08:46 04/14/2024 XR, cervical spine, 2 or 3 view completed [email or web address], [address], 04/20/2024 10:07:20 Procedure Notes None recorded. Medical Equipment None Reported. Allergies Allergen ID Allergen Name Allergen Category Reaction Reaction Severity Criticality Documentation Date Start Date Code Code System Note Provider Name and Address Organization Details Recorded Time 2886574 amoxicill in medicatio n rash Not available Not available 02/04/2024 723 RxNorm Nabila more, [facility] 4 13:23:28 7008529 morphine medicatio n rash Not available Not available 02/04/2024 7052 RxNorm Nabila more, [facility] 4 13:23:39 8870580 Vibramyci n medicatio n gi bleed Not available Not available 02/04/202426520 5 RxNorm Nabila more, [facility] 4 13:23:50 Medications Name Sig Start Date [...] Updated DateTime 10/09/2023 167.64 cm 35.5 kg/m2 39967.32 g Nabila Garcia [facility] 10/09/2023 14:18:33 Date Recorded Body height Body mass index (BMI) Body weight Provider Name and Address Organization Details Last Updated DateTime 02/04/2024 167.64 cm 35.5 kg/m2 22935.32 g Nabila Garcia [facility] 02/04/2024 13:14:10 Social History None recorded. Functional Status None recorded. Mental Status None recorded. Family History Nothing Reported. Medical History Condition Response arthritis Y hypertension Y seizure disorder Y anxiety disorder Y stroke Y depression Y Gynecological HistoryNo gynecological history recorded. Obstetrics History GPAL:G 0 P 0 0 0 0 Past Encounters Encounter ID Performer Location Encounter Start Date Encounter Closed Date Diagnosis/Indication Diagnosis SNOMED-CT Code Diagnosis ICD10 Code Diagnosis Note [id number] Sonido Maldonado MD [facility] [address] [address] 10/09/2023 12:17:04 10/09/2023 15:45:27 Spinal stenosis in cervical region 38241289 M48.02 We discussed the potential benefit of a revision fusion at C6-7. [id number] Sonido Maldonado MD [facility] [address] [address] 11/13/2023 13:54:32 11/13/2023 15:02:23 Spinal stenosis in cervical region 23019796 M48.02 We discussed the potential benefit of [...] to the assessment and plan for details. [id number] DAVION Nuno [facility] [address] [address] 02/04/2024 12:13:22 02/04/2024 14:36:09 Spinal stenosis in cervical region 18178278 M48.02 She will resume normal activity. I recommend a course of physical therapy. She will transition from a hard collar to a soft collar today to wear as needed. All questions were answered in a mike candid manner. Follow up in 3-4 weeks with repeat cervical imaging Lumbar spondylosis 80543 0009 M47.896 I recommend she continue with conservati ve management . If pain worsens she could benefit from injections . All questions were answered. [id number] DAVION Nuno [facility] [address] [address] 03/03/2024 11:48:32 03/03/2024 12:06:03 Spinal stenosis in cervical region 11735247 M48.02 I recommend gentle increase in range of motion and exercise. I discussed the pathophysi ology and natural history in great detail. She will resume normal activity as tolerated. Follow-up as needed or interval basis. [id number] Sonido Maldonado MD [facility] [address] [address] 04/14/2024 12:10:58 04/14/2024 14:21:20 Spinal stenosis in cervical region 07749115 M48.02 She will continue to increase activity [...] Carty Member ID Guarantor Name 10/09/2023 1 [facility] (MEDICARE REPLACEMENT/A DVANTAGE - PPO) [id number] Nina Bella [id number] Nina Bella 10/09/2023 2 [place] [facility] Nina Bella [id number] Nina De La Cruzcha 11/13/2023 1 [facility] (MEDICARE REPLACEMENT/A DVANTAGE - PPO) [id number] Nina Bella [id number] Nina Forbesetecha 11/13/2023 2 [place] [facility] Nina Bella [id number] Nina Bear Wietecha 02/04/2024 1 [facility] (MEDICARE REPLACEMENT/A DVANTAGE - PPO) [id number] Nina Bella [id number] Nina Bear Wietecha 02/04/2024 2 [place] [facility] Nina Bella [id number] Nina [employer]et[employer]a 03/03/2024 1 [facility] (MEDICARE REPLACEMENT/A DVANTAGE - PPO) [id number] Nina Bella [id number] Nina Bear Wietecha 03/03/2024 2 [place] [facility] Nina Bella [id number] Nina [employer]a 04/14/2024 1 [facility] (MEDICARE REPLACEMENT/A DVANTAGE - PPO) [id number] Nina Bella [id number] Nina De La Cruzcha 04/14/2024 2 [place] [facility] Nina Bella [id number] Nina Bella Notes Date Note Type Note [...] driving for 18 months. Sonido Maldonado MD [address] [place] [address], [address], [facility] 10/09/2023 22:10:38 11/13/2023 text/html I had the [...] it helps her sleep. Sonido Maldonado MD [address] [place] [address], [address], [facility] 11/13/2023 23:09:37 02/04/2024 text/html Ms. Bella returns [...] pain is improved with rest. DAVION Nuno [address] [place] [address], [address], [facility] 02/04/2024 14:26:17 03/03/2024 text/html Ms. Bella returns [...] denies fever or chills. DAVION Nuno [address] [place], [address], [facility] 03/03/2024 12:31:51 04/14/2024 text/html Ms. Wietecha returns [...] she is doing well. Sonido Maldonado MD [address] [place] [address], [phone], [facility] 04/14/2024 21:27:20 OBGyn Episode No OBEpisode recorded.
--- OUTSIDE RECORDS SUMMARY | 2024-11-07 17:33 | XMS_ITS | Encounter Summary ---
Author Organization [facility] Address [address] [place] [address] Care Team Providers Care Expert Medical Writer Name Role Phone Floyd Romero MD Primary Care Provider Encounter Details Date Type Department Care Team (Latest Contact Info) Description 11/04/2024 2:30 PM EST Treatment Pelvic Floor Rehabilitation [address] [phone] Yessica Sanchez, PT [address] [place] [address] Urinary incontinence, unspecified type (Primary Dx); Constipation, [...] ed Within the last 3 months, leif w many times did you visit the [...] care for your loved ones. For example, early childhood lead teacher or elderly care for an older [...] PM EST documented as of this encounter Progress Notes * Yessica Sanchez, PT - 11/04/2024 2:30 PM EST Try to limit your fluids 1.5-2 hours before you go to sleep If you have to drink in the middle of the night, take a SIP of water/swish it around your mouth instead of drinking 8+ ounces When you get an urge to use the bathroom, try to push it off by 5-10-15 minutes * Yessica Sanchez, PT - 11/04/2024 2:30 PM EST PELVIC FLOOR PHYSICAL THERAPY TREATMENT NOTE PATIENT: Nina Bella : 1965 VISIT DATE: 11/04/24 VISIT NUMBER: [id number] MEDICAL/SURGICAL HISTORY: Past Medical History: No date: Epilepsy (CMS/HCC) No date: Hypertension No date: Stroke ([facility]) 12/24/2023: Vitamin B12 deficiency Comment: DX:Vitamin B12 deficiency 12/24/2023: Vitamin B12 deficiency 12/24/2023: Vitamin D deficiency Past Surgical History: Procedure Laterality Date APPENDECTOMY [...] PROCEDURE: HISTORICAL SHOULDER SURGERY; COMMENT: ? arthroscopy Allergies Allergen Reactions Amoxicillin Hives and Rash rash Vibramycin [Doxycycline Calcium] Latex Itching C/O: itching C/O: itching Morphine Hives and Rash Other reaction(s): rash MEDICATIONS: Current Outpatient Medications on File Prior to Visit Medication Sig Dispense Refill aspirin 81 mg [...] day. 90 each1 No current facility-administered medications on file prior to visit. CHIEF COMPLAINT: pelvic pain, mixed urinary incontinence, bowel dysfunction SUBJECTIVE Pt reports feeling a lot of improvement since starting PFPT. FUNCTIONAL/SYMPTOM UPDATE R hip feels more stable - more movement Bladder getting better; still some leaking, but only if she's out (at a store) and she can't get toa bathroom Not wearing pads at home Frequency >2x/hour BMs daily, but sometimes feels like it takes a while to empty OBJECTIVE - 2/5 lower abdominal strength - Appropriate movement (in and up) of the PFM with contraction INTERVENTIONS Therapeutic Activity (30 minutes) - Discussed strategies to reduce nocturia. Encouraged pt to limit fluids for 1.5-2 hours before bed, and to minimize fluid intake during the night - Bladder retraining: encouraged pt to try to delay urination by 5 minutes, then 10, then 15 to increase the voiding interval - Reviewed standing shoulder flexion/child's pose at counter, form corrected - H/L transversus abdominis activation, massed practice with decreasing need for verbal/tactile cueing - H/L transversus abdominis activation with alt LE march - H/L transversus abdominis activation with alt LE extension, 2 x10 reps - Supine PF contraction x20 reps; deferred quick flicks vs endurance holds at this time d/t difficulty preventing glute compensation Access Code: [email or web address] URL: [email or web address] Date: 11/04/2024 Prepared by: Yessica Sanchez Exercises - Supine Diaphragmatic Breathing - 3 x daily - 7 x weekly - 20 reps - Supine Single Knee to Chest Stretch - 1 x daily - 7 x weekly - 3 reps - 30 hold - Sidelying Mid Thoracic Rotation - 1 x daily - 7 x weekly - 10 reps - Doorway Pec Stretch at 60 Elevation - 1 x daily - 7 x weekly - 3 reps - 30 hold - Standing 'L' Stretch at Counter - 1 x daily - 7 x weekly - 3 reps - 30 hold - Supine Transversus Abdominis Bracing with Double Leg Fallout - 1 x daily - 2 sets - 10 reps - Supine Transversus Abdominis Bracing with Leg Extension - 1 x daily - 2 sets - 10 reps - Supine Pelvic Floor Contraction - 2 x daily - 20 reps ASSESSMENT Nina presents for her first follow up s/p evaluation reporting improvements in leakage, hip mobility and strength, and reduced constipation. Due to continued report of urinary frequency greater than 2x/hour, initiated bladder retraining via delayed voiding to help increase the voiding interval and reduce urgency symptoms. Also initiated PF and core stabilization to improve urethral and bladder neck support needed to maintain continence. Patient should continue to benefit from PT intervention to address impairments, improve function, and improve quality of life. PLAN Cont with lifestyle/behavioral modifications, bladder retraining, constipation management, trunk/hip mobility, pelvic floor muscle retraining, core/hip stabilization A total of 30 minutes was spent [id number] with the patient today. Yessica Sanchez PT, DPT, PCES 11/04/24 documented in this encounter Plan of Treatment Upcoming Encounters Date Type Department Care Team (Late st Contact Info) Description 11/11/2024 11:00 AM EST Treatment Pelvic Floor Rehabilitation - [address] [address] Yessica Sanchez, PT [address] [address] 11/18/2024 2:00 PM EDT Treatment Pelvic Floor Rehabilitation - [address] [phone] Yessica Sanchez, PT [address] [address] 11/25/2024 11:00 AM EDT Treatment Pelvic Floor Rehabilitation - [address] [phone] Yessica Sanchez, PT [address] [address] 12/02/2024 1:00 PM EDT Treatment Pelvic Floor Rehabilitation - [address] [phone] Yessica Sanchez, PT [address] [address] 12/09/2024 2:00 PM EDT Treatment Pelvic Floor Rehabilitation - [address] [phone] Yessica Sanchez, PT [address] [address] 01/31/2025 8:30 AM EDT Office Visit [facility] - [address] [phone] Suyapa Saini PA [address] [place] [address] 03/21/2025 1:50 PM EDT Appointment Radiology Department - [address] [phone] documented as of this encounter Visit Diagnoses [...] documented as of this encounter Care Teams Expert Medical Writer Relationship Specialty Start Date End Date Floyd Romero MD [address] [place] [address] PCP - General 09/23/23 documented as of this encounter
--- OUTSIDE RECORDS SUMMARY | 2024-11-07 17:33 | XMS_ITS | Data Portability ---
Author Organization [facility], Medical [facility] Address [address] Assessment Encounter Date Assessment Date Assessment [...] - pursue right stellate ganglion block today [email or web address] Not available 07/03/2021 15:34:51 Plan of Treatment [...] Stellate Ganglion Block completed Gerry Rodriguez MD [address] [place] [address], , [facility] 07/03/2021 15:34:40 total replacement of hip completed Gerry Rodriguez MD [address] [place] [address], , [facility] 07/04/2021 12:51:02 arthroscopy of shoulder completed Gerry Rodriguez MD [address] [place] [address], , [facility] 07/04/2021 12:51:46 Imaging Results None recorded. Procedure Notes None recorded. Medical Equipment None Reported. Allergies Allergen ID Allergen Name Allergen Category Reaction Reaction Severity Criticality Documentation Date Start Date Code Code System Note Provider Name and Address Organization Details Recorded Time 08340 morphine medicatio n Not available Not available Not available 07/03/2021 7052 RxNorm Not Available Not Available Not Available 97955 amoxicill in medicatio n Not available Not available Not available 07/03/2021 723 RxNorm Not Available Not Available Not Available 51194 Vibramyci n medicatio n Not available Not [...] SNOMED-CT Code Diagnosis ICD10 Code Diagnosis Note [id number] Mary Campos MD [facility] [address] [address] 07/04/2021 12:33:39 07/04/2021 13:29:01 Posttraumatic stress disorder 46441347 F43.10 Chronic post-traumatic stress disorder 735963248 F43.12 Health Concerns Section Related Observation LastModified [...] presents from the [facility] for PTSD. Patient has never been treated [...] Tried: sertraline, memantine, zolpidem Mary Campos MD [address] [place] [address], [address] Floor, [place], [address], [facility] 07/04/2021 13:09:31 OBGyn Episode No OBEpisode recorded.
--- OUTSIDE RECORDS SUMMARY | 2024-11-07 17:33 | XMS_ITS | Data Portability ---
Author Organization [facility] [address] Address [address] [place] [address] Care Team Providers Care Property Investor Name Role Phone EDI LEONARD Primary Care Provider [phone] Assessment No assessment recorded. Plan of Treatment Reminders Order Date Submit Date Provider Last Modified By Organization Details Last Modified Time Details Appointments None recorded. Lab None recorded. Referral None recorded. Procedures None recorded. Surgeries None recorded. Imaging None recorded. Medication Orders ketorolac 30 mg/mL (1 mL) injection solution 2022 023 [email or web address] Not available 13:25:22 Patient TargetsNo targets recorded. Patient Instructions Encounter Date Encounter Id Patient Instructions Last Modified By Organization Details Last Modified Time 11/30/2022 [id number] hip pain: care instructions [email or web address] Not available 11/30/2022 13:17:22 Reason for Referral None Reported. Problems Name Problem SNOMED Code Status Onset Date Resolution Date Notes Provider Name and Address Organization Details Recorded Time Hypercholester olemia 60611206 Active 2022 TOBY TEJADA null, [place] - [facility] 3 12:54:21 Cerebrovascula r accident 800966964 Active 2022 TOBY TEJADA null, [place] - [facility] 3 12:54:37 Traumatic brain injury 622200942 Active 2022 TOBY TEJADA null, [place] - [facility] 3 12:54:50 Seizure disorder 001301075 Active 2022 TOBY TEJADA null, [place] - [facility] 3 12:55:09 Vertigo 908845087 Active 2022 TOBY more, [facility] - [facility] [...] Name and Address Organization Details Recorded Time 311639 amoxicill in medicatio n rash Not available Not available 11/30/2022 723 RxNorm TOBY more, [place] - [facility] 3 12:50:18 994326 morphine medicatio n rash Not available Not available 11/30/2022 7052 RxNorm TOBY TEJADA null, [place] - [facility] 3 12:50:30 588900 Vibramyci n medicatio n gi bleed Not available Not available 11/30/2022 53112 5 RxNorm TOBY TEJADA null, PA - [...] Updated DateTime 3 167.64 cm 34.5 kg/m2 04071.7 7 g 79 /min 97 % 97 % 18 /min 98.3 [degF] 117 mm[Hg] 78 mm[Hg] TOBY TEJADA [place] - [facility] 12:58:57 Social History Question Answer Notes LastModified by Organizat ion Details LastModified Time Tobacco Smoking Status Never Smoker TOBY more [place] - [facility] 11/30/2022 12:57:35 What Is Your Level Of Alcohol Consumption? None [email or web address] Information not available 11/30/2022 Which Illicit Or Recreational Drugs Have You Used? Cbd Oil [email or web address] Information not available 11/30/2022 Do You Use Any Illicit Or Recreational Drugs? Yes [email or web address] Information not available 11/30/2022 Have You Recently Traveled Abroad? No [email or web address] Information not available 11/30/2022 Do You Or Have You Ever Used Any Other Forms Of Tobacco Or Nicotine? No [email or web address] Information not available 11/30/2022 Sex: Unknown Functional Status None recorded. Mental Status None recorded. Family History Nothing Reported. Medical History No medical history recorded. Gynecological HistoryNo gynecological history recorded. Obstetrics History GPAL:G 0 P 0 0 0 0 Past Encounters Encounter ID Performer Location Encounter Start Date Encounter Closed Date Diagnosis/Indication Diagnosis SNOMED-CT Code Diagnosis ICD10 Code Diagnosis Note [id number] [address] [facility] [address] [place] [address] 07/15/2016 17:08:30 07/15/2016 17:46:27 [id number] [address] [facility] [facility] [address] [place] [address] 05/02/2018 14:17:45 05/02/2018 15:36:19 [id number] [address] [place] [address] 03/27/2019 18:05:44 03/27/2019 18:42:56 [id number] [address] [place] [address] 02/15/2019 08:37:37 02/15/2019 09:00:52 [id number] [address] [place] [address] 12/30/2017 09:27:49 12/30/2017 10:05:50 [id number] [address] [facility] [place] [address] 09/13/2019 17:37:31 09/13/2019 19:09:59 [id number] [address] [facility] [place] [address] 07/13/2016 13:41:57 07/13/2016 15:06:16 [id number] [address] [facility] [place] [place] [address] 01/02/2018 08:18:58 01/02/2018 09:11:25 [id number] [address] [facility] [place] [place] [address] 03/01/2018 08:30:18 03/01/2018 09:38:51 [id number] [address] [facility] [place] [address] 05/19/2018 08:20:14 05/19/2018 08:49:28 [id number] Jeremy Moses DO [address] [facility] [place] [address] 11/30/2022 12:33:28 11/30/2022 13:40:19 Pain in right hip joint 1556139362 82687 M25.551 recommend resttyleno l 1 g every 8 htrial of im toradol x 1Reviewed with patient potential adverse side effects of the medication .call treating ortho in [place] for evaluation Patient advised to follow up [...] Carty Member ID Guarantor Name 05/19/2018 1 [facility] [employer] [id number] Nina Bella [id number] Nina Bella 02/15/2019 1 [facility] [employer] [id number] Nina Bear Wietecha [id number] Nina Bear Wietecha 03/27/2019 1 [facility] [employer] [id number] Nina Bear Wietecha [id number] Nina Bear Wietecha 09/13/2019 1 [facility] [employer] [id number] Nina Bear Wietecha [id number] Nina Bear Wietecha 11/30/2022 1 [place] [id number] Nina Bear Wietecha [id number] Nina Bella Notes Date Note Type Note [...] DO [address] [place], [address], [place] - [facility] 11/30/2022 14:31:47 OBGyn Episode No OBEpisode recorded.
--- OUTSIDE RECORDS SUMMARY | 2024-11-07 17:33 | XMS_ITS | Encounter Summary ---
Author Organization [facility] Address [address] [place] [address] Care Team Providers Care Senior Manufacturing Supervisor Name Role Phone Diana Martinez Primary Care Provider [phone] Carl Goodman MD Unavailable Osmar Chicas MD Unavailable [phone] Encounter Details Date Type Department Care Team (Late st Contact Info) Description 12/01/2022 Scanned Document [facility] Department of Internal Medicine [place] [address] [place] [address] Diana Martinez PA [address] [place] [address] Social History Tobacco Use Types [...] on filedocumented in this encounter Care Teams Senior Manufacturing Supervisor Relationship Specialty Start Date End Date Diana Martinez PA [address] [place] [address] PCP - General 01/03/22 Carl Goodman MD [address] [address] Surgery, Orthopedic 01/03/22 Osmar Chicas MD [address] [place] [address] Cardiovascular Disease 01/03/22 documented as of this encounter
--- OUTSIDE RECORDS SUMMARY | 2024-11-07 17:33 | XMS_ITS | Encounter Summary ---
Author Organization [facility] Address [address] [place] [address] Care Team Providers Care Assignment Desk Editor Name Role Phone Diana Martinez Primary Care Provider + [phone] Carl Goodman MD Unavailable Osmar Chicas MD Unavailable [phone] Encounter Details Date Type Department Care Team (Late st Contact Info) Description 10/23/2023 Scanned Document [facility] Department of Internal Medicine [place] [address] [place] [address] Diana Martinez PA [address] [place] [address] Social History Tobacco Use Types Packs/Day Years [...] on filedocumented in this encounter Care Teams Assignment Desk Editor Relationship Specialty Start Date End Date Diana Martinez PA [address] [place] [id number] PCP - General 01/03/22 Carl Goodman MD [address] [address] Surgery, Orthopedic 01/03/22 Osmar Chicas MD [address] [place] [address] Cardiovascular Disease 01/03/22 documented as of this encounter
--- OUTSIDE RECORDS SUMMARY | 2024-11-07 17:33 | XMS_ITS | Encounter Summary ---
Author Organization [facility] Address [address] [place] [address] Care Team Providers Care Methods Analyst Data Processing Name Role Phone Diana Martinez Primary Care Provider + [phone] Carl Goodman MD Unavailable Osmar Chicas MD Unavailable [phone] Encounter Details Date Type Department Care Team (Late st Contact Info) Description 10/12/2023 Scanned Document [facility] Department of Internal Medicine [place] [address] [place] [address] Diana Martinez PA [address] [place] [address] Social History Tobacco Use Types Packs/Day Years [...] on filedocumented in this encounter Care Teams Methods Analyst Data Processing Relationship Specialty Start Date End Date Diana Martinez PA [address] [place] [id number] PCP - General 01/03/22 Carl Goodman MD [address] [address] Surgery, Orthopedic 01/03/22 Osmar Chicas MD [address] [place] [address] Cardiovascular Disease 01/03/22 documented as of this encounter
--- OUTSIDE RECORDS SUMMARY | 2024-11-07 17:33 | XMS_ITS | Encounter Summary ---
Author Organization [facility] Address [address] [place] [address] Care Team Providers Care Tar And Ammonia Pump Operator Name Role Phone Diana Martinez Primary Care Provider [phone] Carl Goodman MD Unavailable Osmar Chicas MD Unavailable [phone] Encounter Details Date Type Department Care Team (Late st Contact Info) Description 12/07/2022 Scanned Document [facility] Department of Internal Medicine [place] [address] [place] [address] Diana Martinez PA [address] [place] [address] Social History Tobacco Use Types [...] on filedocumented in this encounter Care Teams Tar And Ammonia Pump Operator Relationship Specialty Start Date End Date Diana Martinez PA [address] [place] [address] PCP - General 01/03/22 Carl Goodman MD [address] [address] Surgery, Orthopedic 01/03/22 Osmar Chicas MD [address] [place] [address] Cardiovascular Disease 01/03/22 documented as of this encounter
--- OUTSIDE RECORDS SUMMARY | 2024-11-07 17:34 | XMS_ITS | Encounter Summary ---
Author Organization [facility] Address [address] [place] [address] Care Team Providers Care Sustainable Communities Designer Name Role Phone Brian Chong APRN Primary Care Provider [phone] Diana Martinez Primary Care Provider + [phone] Carl Goodman MD Unavailable Osmar Chicas MD Unavailable [phone] Encounter Details Date Type Department Care Team (Late st Contact Info) Description 10/04/2018 Scanned Document [facility] at [address] [address] Spine Surgery, Scan Social History [...] on filedocumented in this encounter Care Teams Sustainable Communities Designer Relationship Specialty Start Date End Date Brian Chong APRN [address] [place] [address] PCP - General Adult Health - PA/APNP/HOT IRON WORKER/AP OPERATOR 09/29/18 01/02/22 Diana Martinez PA [address] [place] [address] PCP - General 01/03/22 Carl Goodman MD [address] [place] [address] Surgery, Orthopedic 01/03/22 Osmar Chicas MD [address] [facility] [address] [place] [id number] Cardiovascular Disease 01/03/22 documented as of this encounter
--- OUTSIDE RECORDS SUMMARY | 2024-11-07 17:34 | XMS_ITS | Encounter Summary ---
Author Organization [facility] Address [address] [place] [address] Care Team Providers Care Almond Grinder Name Role Phone Diana Martinez Primary Care Provider + [phone] Carl Goodman MD Unavailable Osmar Chicas MD Unavailable [phone] Encounter Details Date Type Department Care Team (Late st Contact Info) Description 09/10/2023 Scanned Document [facility] Department of Internal Medicine [place] [address] [place] [address] Diana Martinez PA [address] [place] [address] Social History Tobacco Use Types Packs/Day Years [...] on filedocumented in this encounter Care Teams Almond Grinder Relationship Specialty Start Date End Date Diana Martinez PA [address] [place] [id number] PCP - General 01/03/22 Carl Goodman MD [address] [address] Surgery, Orthopedic 01/03/22 Osmar Chicas MD [address] [place] [address] Cardiovascular Disease 01/03/22 documented as of this encounter
--- OUTSIDE RECORDS SUMMARY | 2024-11-07 17:34 | XMS_ITS | Data Portability ---
Author Organization [facility] Address [address] [place] [address] Care Team Providers Care Product Marketing Intern Name Role Phone EDI LEONARD Referring Provider EDI LEONARD Primary Care Provider Assessment Encounter Date Assessment Date Assessment LastModified [...] Procedures None recorded. Surgeries None recorded. Imaging MRI, hip, w/o contrast - R total hip replacement , pain, Metal artifact reduction protocolP lease call patient to schedule and hand carry CD 2023 024 [facility] , [address], [address], [place], [address], 4 08:00:28 XR, hip, unilateral, 2 or 3 view 2023 024 [facility], [address], [address], [place], [address], 4 10:00:11 XR, hip, unilateral, 2 or 3 view 2022 023 [email or web address] [facility], [address], [address], [place], [address], 3 12:15:14 Medication Orders prednisone 10 mg tablet 2023 024 [id number], [address] [facility] , [place], [address], 13:46:49 Patient TargetsNo targets recorded. Patient Instructions Encounter Date Encounter Id Patient Instructions Last Modified By Organization Details Last Modified Time 03/27/2023 AP pelvis, AP an d lateral radiographs of the right hip taken today demonstrate a right total hip replacement with components in appropriate position without any signs of hardware related complication Not available 03/27/2023 10:15:02 12/04/2023 [id number] AP pelvis, AP an d lateral radiographs [...] is marrow edema within the acetab ulum shaker tender iorly with minima l adjace nt soft [...] joint effusi on. Marrow edema within the shaker tender ior acetab ulum with minima l adjace [...] blakely to us, Juan M vega MD [id number] (Elect maria fernanda quinn Signed - 2023 07:56) Copy: JORDANA Blakely , [email or web address] [facility] [address] [facility] [address], [place], [address], 01/07/2024 13:43:29 04/13/20 24 imagi ng/di agnos tic resul t No observ ation record ed. [email or web address] Not Available 2023 09:55:17 Result Notes None recorded. Problems Name Problem SNOMED Code Status Onset Date Resolution Date Notes Provider Name and Address Organization Details Recorded Time Hip pain 61842959 Active 2022 Clifton Esteban MD [address], [place], [address], [place] - [facility], P 3 12:08:21 History of total replacement of right hip joint 2280537562898 00 Active 2022 TUAN ALEMAN PA-C [address] [facility],[address], [place], [address], [place] - [facility], P 3 14:21:57 Problem Notes None recorded. Procedures Surgical History Date Name Laterality Status Provider Name and Address Organization Details Recorded Time Hip Surgery completed Drew Gutierrez [place] - [facility], P 01/19/2023 14:11:38 Imaging Results Imaging Date Name Status LastModified by Organiz ation Details LastModified Time 01/01/2024 MRI, hip, w/o contrast completed [email or web address] [facility] [address] [facility] [address], [place], [address], 01/07/2024 13:43:29 04/13/2024 imaging/diagn ostic result completed [email or web address] Information not available 04/13/2024 09:55:17 Procedure Notes None recorded. Medical Equipment None Reported. Allergies Allergen ID Allergen Name Allergen Category Reaction Reaction Severity Criticality Documentation Date Start Date Code Code System Note Provider Name and Address Organization Details Recorded Time 1296 gabapenti n medicatio n Not available Not available Not available 12/05/2022 02536 RxNorm Krystal [place] null, [place] - [facility], P 4 08:58:45 45660 morphine medicatio n Not available Not available Not available 12/04/2023 7052 RxNorm Krystal [place] null, [place] - [facility], P 4 08:58:51 28398 amoxicill in medicatio n Not available Not available Not available 12/04/2023 723 RxNorm Krystal [place] null, [place] - [facility], P 4 08:58:57 11203 Vibramyci n medicatio n Not available Not available Not available 12/04/2023 64575 5 RxNorm Krystal [place] null, [place] - [facility], P 4 08:59:05 Medications Name Sig Start [...] cm Krystal [place]arg[place]se [place] - [facility], P 12/04/2023 08:58:35 Date Recorded Body height Provider Name an d Address Organization Details Last Updated DateTime 01/08/2024 167[address] - [facility] 01/08/2024 15:16:31 Date Recorded Body height Body mass index (BMI) Body weight Provider Name and Address Organization Details Last Updated DateTime 03/27/2023 167.64 cm 33.9 kg/m2 [address]383.[address] - [facility] 03/27/2023 09:40:02 Social History None recorded. Functional Status None recorded. Mental Status None recorded. Family History Nothing Reported. Medical History Condition Response Stroke Y Hypertension Y Gynecological HistoryNo gynecological history recorded. Obstetrics History GPAL:G 0 P 0 0 0 0 Past Encounters Encounter ID Performer Location Encounter Start Date Encounter Closed Date Diagnosis/Indication Diagnosis SNOMED-CT Code Diagnosis ICD10 Code Diagnosis Note [id number] [place] [address] 12/05/2022 10:48:48 12/05/2022 12:18:45 Pain in right hip joint 0880913134 76261 M25.551 Hip pain 07029487 M25.55 1 Osteoarthr itis of right hip joint 9637919621 76090 M16.11 [id number] MD [facility] jin [address] [place] [address] 01/19/2023 14:09:20 01/19/2023 14:26:04 History of total replacement of right hip joint 3934978708 90673 Z96.641 [id number] MD [facility] Til[facility] [address] [address] 02/17/2023 12:41:16 02/17/2023 13:28:28 Dislocation of hip joint prosthesis 935949463 Z96.649 [id number] MD [facility] [address] [place] [address] 03/27/2023 09:26:25 03/27/2023 10:11:48 History of right hip replacement 5355812440 263394 Z96.641 Aftercare 461755170 Z47. 1 [id number] MD [facility]ELINA Tilley[address] [address] 12/04/2023 08:43:03 12/04/2023 09:22:32 History of total replacement of right hip joint 8977721842 08422 Z96.641 Surgical follow-up 94782 4000 Z47.1 Z96.641 Additional diagnosis detail: Aftercare following right hip joint replacemen t surgery [id number] MD [facility] [address] [address] 12/22/2023 13:11:04 12/22/2023 13:38:26 History of total replacement of right hip joint 9470491992 44312 Z96.641 Hip pain 23998608 M25.55 1 [id number] MD [facility] [address] [address] 01/08/2024 15:06:37 01/08/2024 15:37:06 History of total replacement of right hip joint 9930729390 88770 Z96.641 Hip pain 13504131 M25.55 1 [id number] Clifton Esteban MD [address] [place] [address] 04/12/2024 13:20:58 04/12/2024 13:47:54 History of total replacement of right hip joint 8347228634 52893 Z96.641 Health Concerns Section Related Observation LastModified by Organization Detai ls LastModified Time None Recorded Concern Status LastModified by Organization Details LastModified Time None Recorded Advance Directives Directive None Recorded Payers Encounter Date Sequence Insurance Name Policy Number Policy Carty Covered Member ID Carty Member ID Guarantor Name 03/27/2023 1 [id number] 2 Nina Bella [id number] Nina [employer]etecha 12/04/[address] [facility] (MEDICARE REPLACEMENT/A DVANTAGE - HMO) [id number] Nina Forbesetecha [id number] Nina Bear Wietecha 12/22/[address] [facility] (MEDICARE REPLACEMENT/A DVANTAGE - HMO) [id number] Nina Bear Wietecha [id number] Nina Bear Wietecha 01/08/[address] [facility] (MEDICARE REPLACEMENT/A DVANTAGE - HMO) [id number] Nina Forbesetecha [id number] Nina Bear Wietecha 04/12/[address] [facility] (MEDICARE REPLACEMENT/A DVANTAGE - HMO) [id number] Nina De La Cruzcha [id number] Nina Bella OBGyn Episode No OBEpisode recorded.
--- OUTSIDE RECORDS SUMMARY | 2024-11-07 17:34 | XMS_ITS | Encounter Summary ---
Author Organization [facility] Address [address] [place] [address] Care Team Providers Care Intermodal Customer Service Name Role Phone Diana Martinez Primary Care Provider [phone]- [phone] Carl Goodman MD Unavailable Osmar Chicas MD Unavailable [phone] Encounter Details Date Type Department Care Team (Late st Contact Info) Description 12/18/2022 Scanned Document [facility] Department of Internal Medicine [place] [address] [place] [address] Diana Martinez PA [address] [place] [address] Social History Tobacco Use Types [...] on filedocumented in this encounter Care Teams Intermodal Customer Service Relationship Specialty Start Date End Date Diana Martinez PA [address] [place] [address] PCP - General 01/03/22 Carl Goodman MD [address] [address] Surgery, Orthopedic 01/03/22 Osmar Chicas MD [address] [place] [address] Cardiovascular Disease 01/03/22 documented as of this encounter
--- OUTSIDE RECORDS SUMMARY | 2024-11-07 17:34 | XMS_ITS | Patient Health Record ---
[facility] Address [address] [place] [address] Care Team Providers Care Prosthetist Name Role Phone Floyd Romero Primary Care Provider Aleisha Holguin Unavailable [phone] Allergies Allergen (clinical drug ingredient) Drug/Non Drug [...] Once a day for 30 days Active Pantoprazole Sodium Active Baby Aspirin Active DULoxetine HCl 60 MG Oral for 30 Days Active Valsartan 40 MG Oral for 90 Days Active Social History Tobacco Use: Social History Observation Description Date Details (start date - stop date) Never Smoker NA - NA Tobacco use other than smoking: Question Answer Notes Are you an other tobacco user? Yes Tobacco Control (Standard) Question Answer Notes Tobacco use: Nonsmoker Problems Problem Type SNOMED Code ICD Code Onset Dates Problem Status W/U Status Risk Notes Problem Plantar fibromatosis (67780459) Plantar fibromatosis (M72.2) Active confirmed Problem Plantar fascial fibromatosis (12658611) Plantar fasciitis, bilateral (M72.2) Active confirmed Vital Signs Blood pressure diastolic 80 mm Hg 09/21/2024 Height 5ft6in in 09/21/2024 Blood pressure systolic 120 mm Hg 09/21/2024 Weight 190 lbs 09/21/2024 BMI 30.66 kg/m2 09/21/2024 Encounters Encounter Location Date Provider Diagnosis [facility] [address] [place] [address] 07/13/2024 Aleisha Mahan Pain in right foot M79.671 ; Plantar fibromatosis M72.2 and 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 [address] 09/21/2024 Aleisha Mahan Plantar fibromatosis M72.[address] [address] 06/27/2024 Aleisha Perica [address] [address] 07/13/2024 [facility] [address] 07/13/2024 Aleisha Mahan Assessments Encounter Date Diagnosis (ICD Code) Assessment Notes Treatment Notes Treatment Clinical Notes Section Notes 07/13/2024 Pain in right foot (ICD-10 - M79.671) 09/21/2024 Plantar fibromatosis (ICD-10 - M72.2) 07/13/2024 Plantar fibromatosis (ICD-10 - M72.2) 07/13/2024 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 (ICD-10 - 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.21) 07/13/2024 Other Patient Educated with: HEEL CORD STRETCHES.pdf (HEEL CORD STRETCHES.pdf) Patient Educated with: RICE THERAPY.pdf (RICE THERAPY.pdf) 09/21/2024 Other Plan Of Treatment No Information Insurance Providers Payer Name Payer Address Payer Phone Subscriber Number Group Number Insured Name Patient Relationship to Insured Coverage Start Date Coverage End Date [employer] Medicare [id number] [address] [address] [place] [address] [id number] Nina Bella Self - patient is the insured Medical (General) History Medical History History ICD Code Arthritis Back,Hip,and Knee pain Depression Seizures High Blood Pressure Numbness Chicken pox Joint implants/screws Surgical History Surgery Date(Month/Year) hip replacement back fusions endoscopy 07/12/24 colonoscopy 07/08/24
--- OUTSIDE RECORDS SUMMARY | 2024-11-07 17:34 | XMS_ITS | Encounter Summary ---
Author Organization [facility] Address [address] [place] [address] Care Team Providers Care Bonding Machine Setter Name Role Phone Diana Martinez Primary Care Provider + [phone] Carl Goodman MD Unavailable Osmar Chicas MD Unavailable [phone] Encounter Details Date Type Department Care Team (Late st Contact Info) Description 05/28/2023 Scanned Document [facility] Department of Internal Medicine [place] [address] [place] [address] Diana Martinez PA [address] [place] [address] Social History Tobacco Use Types Packs/Day Years [...] on filedocumented in this encounter Care Teams Bonding Machine Setter Relationship Specialty Start Date End Date Diana Martinez PA [address] [place] [phone] PCP - General 01/03/22 Carl Goodman MD [address] [address] Surgery, Orthopedic 01/03/22 Osmar Chicas MD [address] [place] [address] Cardiovascular Disease 01/03/22 documented as of this encounter
--- OUTSIDE RECORDS SUMMARY | 2024-11-07 17:34 | XMS_ITS ---
Author Organization [facility] Address [address] [place] [address] Care Team Providers Care Grapple Crew Leader Name Role Phone Floyd Romero Primary Care Provider Aleisha Holguin Unavailable [phone] REASON FOR VISIT bought Pedag viva sport red #40 Encounters Encounter Location Date Provider Diagnosis [facility] [address] [place] [address] 07/13/2024 Aleisha Mahan Plan Of Treatment No Information Progress Notes * Sindy BELLAOB:[birth year] (59 yo F)Acc No.[id number]:07/13/2024 Patient:?Nina Bella :1965???Age:59 Y???Sex:Female Address:[address] [facility] [place] [address] * true * Date:? Generated for Jefferyi eamon/Ximena/eTransmitting on:?11/07/2024 05:34 PM EST
--- OUTSIDE RECORDS SUMMARY | 2024-11-07 17:34 | XMS_ITS ---
Author Organization [facility] Address [address] [place] [address] Care Team Providers Care Money Manager Name Role Phone Floyd Romero Primary Care Provider Aleisha Holguin Unavailable [phone] REASON FOR VISIT Mix Encounters Encounter Location Date Provider Diagnosis [facility] [address] [place] [address] 07/13/2024 Aleisha Mahan Plan Of Treatment No Information Progress Notes * Sindy BELLAOB:[birth year] (59 yo F)Acc No.[id number]:07/13/2024 Patient:?Nina Bella :1965???Age:59 Y???Sex:Female Address:[address] [facility] [address] * true * Date:? Generated for Wayne knutson/Ximena/eTransmitting on:?11/07/2024 05:33 PM EST
--- OUTSIDE RECORDS SUMMARY | 2024-11-07 17:34 | XMS_ITS | Encounter Summary ---
Author Organization [facility] Address [address] [place] [address] Care Team Providers Care Manager Vehicle Name Role Phone Diana Martinez Primary Care Provider + [phone] Carl Goodman MD Unavailable Osmar Chicas MD Unavailable [phone] Encounter Details Date Type Department Care Team (Late st Contact Info) Description 08/25/2023 Scanned Document [facility] Department of Internal Medicine [place] [address] [place] [address] Diana Martinez PA [address] [place] [address] Social History Tobacco Use Types Packs/Day Years [...] on filedocumented in this encounter Care Teams Manager Vehicle Relationship Specialty Start Date End Date Diana Martinez PA [address] [place] [phone] PCP - General 01/03/22 Carl Goodman MD [address] [address] Surgery, Orthopedic 01/03/22 Osmar Chicas MD [address] [place] [address] Cardiovascular Disease 01/03/22 documented as of this encounter
--- OUTSIDE RECORDS SUMMARY | 2024-11-07 17:34 | XMS_ITS | Encounter Summary ---
Author Organization [facility] Address [address] [place] [address] Care Team Providers Care Mental Health Nurse Name Role Phone Diana Martinez Primary Care Provider [phone] Carl Goodman MD Unavailable Osmar Chicas MD Unavailable [phone] Encounter Details Date Type Department Care Team (Late st Contact Info) Description 12/15/2022 Scanned Document [facility] Department of Internal Medicine [place] [address] [place] [address] Diana Martinez PA [address] [place] [address] Social History Tobacco Use Types [...] on filedocumented in this encounter Care Teams Mental Health Nurse Relationship Specialty Start Date End Date Diana Martinez PA [address] [place] [address] PCP - General 01/03/22 Carl Goodman MD [address] [address] Surgery, Orthopedic 01/03/22 Osmar Chicas MD [address] [place] [address] Cardiovascular Disease 01/03/22 documented as of this encounter
--- OUTSIDE RECORDS SUMMARY | 2024-11-07 17:34 | XMS_ITS | Encounter Summary ---
Author Organization [facility] Address [address] [place] [address] Care Team Providers Care Medical Assistant Cardiology Name Role Phone Diana Martinez Primary Care Provider + [phone] Carl Goodman MD Unavailable Osmar Chicas MD Unavailable [phone] Encounter Details Date Type Department Care Team (Late st Contact Info) Description 02/10/2023 Scanned Document [facility] Department of Internal Medicine [place] [address] [place] [address] Diana Martinez PA [address] [place] [address] Social History Tobacco Use Types Packs/Day Years [...] on filedocumented in this encounter Care Teams Medical Assistant Cardiology Relationship Specialty Start Date End Date Diana Martinez PA [address] [place] [phone] PCP - General 01/03/22 Carl Goodman MD [address] [address] Surgery, Orthopedic 01/03/22 Osmar Chicas MD [address] [place] [address] Cardiovascular Disease 01/03/22 documented as of this encounter
== END 2024-11-07 14:46 | disposition home or self-care (01) ==
LOC: HO.HOP 14:43
PROVIDERS: PCP Internal Medicine; Visit Provider Clinical Nurse Specialist Psychiatric/Mental Health
DX: F33.1 Major depressive disorder, recurrent, moderate (principal); F41.1 Generalized anxiety disorder; F43.12 Post-traumatic stress disorder, chronic; G31.84 Mild cognitive impairment of uncertain or unknown etiology; F44.9 Dissociative and conversion disorder, unspecified
CPT/HCPCS: 99214

== ENCOUNTER → 2024-11-07 14:43 | Outpatient (BNVA) | payer MEDICARE, MEDICAID, SELFPAY | PROVIDERS: PCP Internal Medicine; Visit Provider Clinical Nurse Specialist Psychiatric/Mental Health | DX: F33.1 Major depressive disorder, recurrent, moderate (principal); F41.1 Generalized anxiety disorder; F44.9 Dissociative and conversion disorder, unspecified; F43.12 Post-traumatic stress disorder, chronic; G31.84 Mild cognitive impairment of uncertain or unknown etiology | CPT/HCPCS: 99212 ==

== ENCOUNTER 2024-12-19 12:46 | Outpatient (AMB) | payer MEDICARE, MEDICAID, SELFPAY ==
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
--- OUTSIDE RECORDS SUMMARY | 2024-12-19 14:38 | XMS_ITS | Clinical Summary ---
Author Organization [address] Address [address] [place] [address] [place] [address] Phone Care Team Providers Care Tuckpointer Cleaner Caulker Name Role Phone Floyd Romero MD Primary [...] (BMI) of 36.0 to 36.9 in adult ([facility] V24, [facility] V28) 06/18/2024 Adenoma of colon 12/28/2023 Overview (06/18/2024): History of adenoma greater than 10 mm. Last colonoscopy 03/2021, follow-up 5 years Anxiety and depression 12/24/2023 Gastroesophageal reflux disease 12/24/2023 Low magnesium level 12/24/2023 Other hyperlipidemia 12/24/2023 Primary hypertension 12/24/2023 PTSD (post-traumatic stress disorder) 12/24/2023 Seizures ([facility] V24, [facility] V28) 12/24/2023 Resolved Problems Problem Noted Date Diagnosed Date Resolved Date Vitamin B12 deficiency 12/24/202308/01 Vitamin D deficiency 12/24/2023 024 Encounters Date Type Department Care Team Description 12/09/2024 2:00 PM EDT Treatment Pelvic Floor [address] [phone] Yessica Sanchez, PT Urinary incontinence, unspecified type (Primary Dx); Constipation, unspecified constipation type; Urgency of urination; Pelvic pain; Muscle spasm; Muscle weakness 11/25/2024 11:00 AM EDT Treatment Pelvic Floor [address] [phone] Yessica Sanchez, PT Urinary incontinence, unspecified type (Primary Dx); Constipation, unspecified constipation type; Urgency of urination; Pelvic pain; Muscle spasm; Muscle weakness 11/18/2024 2:00 PM EDT Treatment Pelvic Floor [address] [phone] Yessica Sanchez, PT Urinary incontinence, unspecified type (Primary Dx); Constipation, unspecified constipation type; Urgency of urination; Pelvic pain; Muscle spasm; Muscle weakness 11/11/2024 11:00 AM EST Treatment Pelvic Floor Rehabilitation - [address] [phone] Carla Sancheza, PT Urinary incontinence, unspecified type (Primary Dx); Constipation, unspecified constipation type; Urgency of urination; Pelvic pain; Muscle spasm; Muscle weakness 11/04/2024 2:30 PM EST Treatment Pelvic Floor Rehabilitation - [address] [phone] Carla Sancheza, PT Urinary incontinence, unspecified type (Primary Dx); Constipation, unspecified constipation type; Urgency of urination; Pelvic pain; Muscle spasm; Muscle weakness 10/17/2024 9:20 AM EST Office Visit Gastroenterology - [address] [place] [phone] Jaycee Hilario PA Right lower quadrant abdominal pain (Primary Dx); Weight loss 09/30/2024 9:00 AM EST Treatment Pelvic Floor [facility] - [address] [phone] Yessica Sanchez, PT Urinary incontinence, unspecified type (Primary Dx); Constipation, unspecified constipation type; Urgency of urination; Pelvic pain; Muscle spasm; Muscle weakness 09/29/2024 2:00 PM EST Office Visit Urogynecology - [address] [phone] Kiersten Sherwood NP Pelvic pain in female (Primary Dx); Urinary incontinence, unspecified type; Urgency of urination; Nocturia from Last 3 Months Immunizations Name Administration [...] deficiency 12/24/2023 Vitamin D deficiency 12/24/2023 Epilepsy ([facility] V24, [facility] V28) Stroke ([facility] V24, [facility] V28) Family History Medical History Relation Name Comments Hypertension Brother back issues Celiac disease Daughter Alicja Hypertension Father Chasity Prostate cancer Father Chasity HTN Pancreatic cancer Maternal Grandfather Ovarian cancer Maternal Grandmother Other: Sepsis Mother Heart attack Paternal Grandfather Dont know Breast cancer Paternal Grandmother 70s Hypertension Sister Violeta No Known Problems Son Relation Name Status Comments Brother Alive Daughter Alicja Alive Father Chasity Maternal Grandfather Maternal Grandmother Mother Paternal Grandfather [...] for your loved ones. For example, child care associate teacher or elderly care for an older [...] Care Team (Late st Contact Info) Description 01/13/2025 1:30 PM EDT Treatment Pelvic Floor Rehabilitation - [address] [phone] Yessica Sanchez, PT [address] [address] 01/31/2025 8:30 AM EDT Office Visit Adult Medicine [address] [phone] Suyapa Saini PA [address] [place] [address] 02/03/2025 2:00 PM EDT Treatment Pelvic Floor Rehabilitation - [address] [phone] Yessica Sanchez, PT [address] [address] 02/24/2025 1:00 PM EDT Treatment Pelvic Floor Rehabilitation - [address] [phone] Yessica Sanchez, PT [address] [place] [address] 03/21/2025 1:50 PM EDT Appointment Radiology Department - [address] [phone] Health Maintenance Due Date Last Done Comments [...] Panel) 08/12/2029 08/12/2024, 03/09/2024, 03/09/2024 RSV Immunization Adult Patients (1 - 1-dose 75+ series) 2040 Hepatitis [...] age to complete this topic Meningococcal B Vaccine Aged Out No l onger eligible based on patient's age to complete [...] this topic Medical Devices Implanted Type Area Tobacco Weigher Device Identifier Shelf Expiration Date Model / Serial / Lot Surgiflo Hemostatic Matrix [facility] [id number] Implanted:Qty : 2 on 08/09/2021 by Andrea Polanco DO Implants N/A: Spine Cervical [facility] 11/04/2022 2991 / / [id number] Size 5 Standard Tapered Stem Cementless Implanted:Qty : 1 on 12/29/2022 by Clifton Esteban MD Joints Right: Hip [id number] 10/01/2027 / / [id number] +4 Femoral Head Implanted:Qty : 1 on 12/29/2022 by Clifton Esteban MD Joints Right: Hip [id number] 07/04/2026 / / [id number] Description:Renata 36mm +4mm Spacer Vikos 14.5x11.5x8mm 7d Stry-Spin [id number]-8 11258 - [id number] Implanted:Qty : 1 on 08/09/2021 by Andrea Polanco DO N/A: Spine Cervical [employer] 06/12/2025 2504-214 08L / [id number] / Spacer Vikos 14.5x11.5x7mm 7d Stry-Spin [id number]-6 14425 - [id number] Implanted:Qty : 1 on 08/09/2021 by Andrea Polanco DO N/A: Spine Cervical [employer] 10/24/2025 2504-214 07L / [id number] / Spacer Vikos 14.5x11.5x7mm 7d Stry-Spin 6819-61799y-[id number] 35147 - [id number] Implanted:Qty : 1 on 08/09/2021 by Andrea Polanco DO N/A: Spine Cervical [employer] 08/02/2025 2504-214 07L / [id number] / Plate [place] 57mm 3 Level Bone Stry-K2m [id number] Implanted:Qty : 1 on 08/09/2021 by Andrea Polanco DO N/A: Spine Cervical [employer] [id number] 57V / / Screw [place] Self-Start 4x16mm Stry-K2m [id number]- [id number] Implanted:Qty : 7 on 08/09/2021 by Andrea Polanco DO N/A: Spine Cervical [employer] 8801-040 16DA / / Screw [place] 16mm 4.5mm Self St Stry-Howm [id number]- [id number] Implanted:Qty : 1 on 08/09/2021 by Andrea Polanco DO N/A: Spine Cervical [employer] 8801-045 16DA / / Screw Marie 6.5x20mm Crng-Manu [id number] 6 Implanted:Qty : 1 on 12/29/2022 by Clifton Esteban MD Right: Hip [employer] [id number] 10/02/2027 321.02 0 [id number] Marie Liner Ecima Neutral Offset Implanted:Qty : 1 on 12/29/2022 by Clifton Esteban MD Right: Hip [employer] 10/29/2027 322.03.6 36 / / [id number] Hip Cup Marie Tpr 52mm Sz3 Crng-Manu [id number] 6960 Implanted:Qty : 1 on 12/29/2022 by Clifton Esteban MD Right: Hip [employer] [id number] 10/13/2027 321.03 .3 52 / [id number] Screw Marie 6.5x25mm Crng-Manu 321.025-39465 7 Implanted:Qty : 1 on 12/29/2022 by Clifton Esteban MD Right: Hip [employer] [id number] 09/02/2027 321.02 5 [id number] Procedures Procedure Name Priority Date/Time Associated Diagnosis Comments BASIC METABOLIC PANEL Routine 09/15/2024 9:58 AM EST Weight loss, non-intentional Right-sided abdominal pain of unknown cause HIV 1, 2 ANTIBODY, P24 ANTIGEN WITH REFLEX TO DIFFERENTIATION Routine 08/12/2024 7:54 AM EST Encounter for screening for HIV LIPID PANEL WITH REFLEX TO DIRECT LDL Routine 08/12/2024 7:54 AM EST Other hyperlipidemia SCREENING MAMMOGRAPHY BI 2-VIEW BREAST INC CAD Routine 03/14/2024 1:25 PM EDT Encounter for screening mammogram for malignant neoplasm of breast HEPATITIS C SCREENING Routine 12/24/2023 COLONOSCOPY Routine 03/18/2021 from Last 3 Months or Most Recently Relevant to Health Maintenance Results * Basic metabolic panel (09/15/2024 9:58 AM EST) Sodium 136 133 - 145 mmol/L LAB CHEMISTRY METHOD 09/15/2024 12:40 PM [facility] Potassium 4.1 3.5 - 5.5 mmol/L LAB CHEMISTRY METHOD 09/15/2024 12:40 PM [facility] Chloride 102 96 - 110 mmol/L LAB CHEMISTRY METHOD 09/15/2024 12:40 PM [facility] CO2 27 21 - 32 mmol/L LAB CHEMISTRY METHOD 09/15/2024 12:40 PM [facility] Anion Gap 7 3 - 11 LAB CHEMISTRY METHOD 09/15/2024 12:40 PM [facility] Glucose 91 70 - 100 mg/dL LAB CHEMISTRY METHOD 09/15/2024 12:40 PM EST [facility] BUN 14 5 - 25 mg/dL LAB CHEMISTRY METHOD 09/15/2024 12:40 PM EST [facility] Creatinine 0.90 0.50 - 1.10 mg/dL LAB CHEMISTRY METHOD 09/15/2024 12:40 PM [facility] eGFR 74 >=60 mL/min/1. 73m2 LAB CHEMISTRY METHOD 09/15/2024 12:40 PM EST [facility] Comment:Calculation based on the??Chronic Kidney Disease Epidemiology Collaboration (CKD-EPI) equation refit??without adjustment for race. BUN/Creatinine Ratio 15.6 LAB CHEMISTRY METHOD 09/15/2024 12:40 PM [facility] Calcium 9.9 8.5 - 10.5 mg/dL LAB CHEMISTRY METHOD 09/15/2024 12:40 PM EST [facility] Blood Venous blood specimen / Unknown Venipuncture / Unknown 09/15/2024 9:58 AM EST 09/15/2024 10:35 AM EST us Jaycee RICARDO LAB BLOOD ORDERABLES Final Resu lt [facility] [address] [place] [address], * HIV 1,2 antibody, p24 antigen with reflex to differentiation (08/12/2024 7:54 AM EST) HIV Combo AB/AG Negative Negative LAB CHEMISTRY METHOD 08/12/2024 10:52 AM EST [facility] Blood Venous blood specimen / Unknown Venipuncture / Unknown 08/12/2024 7:54 AM EST 08/12/2024 7:54 AM EST Narrative [facility] - 08/12/2024 10:52 AM EST This assay is a 4th generation assay allowing for earlier detection of HIV infection by detecting the presence of the HIV-1 p24 antigen as well as the traditional antibodies to HIV type 1 (including group O) and type 2. ??Use of a 4th generation assay is the current CDC recommendation for HIV screening. us Floyd Romero MD LAB BLOOD ORDERABLES F inal Result Performing Organization Address City/[facility]/ZIP Co de Phone Number [facility] [address] [place] [address], [place] [phone] * Lipid panel with reflex to direct LDL (08/12/2024 7:54 AM EST) Cholesterol 175 0 - 200 mg/dL LAB CHEMISTRY METHOD 08/12/2024 11:01 AM [facility] Triglycerides 90 0 - 150 mg/dL LAB CHEMISTRY METHOD 08/12/2024 11:01 AM [facility] HDL 94 >=40 mg/dL LAB CHEMISTRY METHOD 08/12/2024 11:01 AM [facility] LDL Calculated 63 0 - 100 mg/dL LAB CHEMISTRY METHOD 08/12/2024 11:01 AM [facility] VLDL Cholesterol Jai 18 mg/dL LAB CHEMISTRY METHOD 08/12/2024 11:01 AM [facility] Non HDL Chol. (LDL+VLDL) 81 <145 mg/dL LAB CHEMISTRY METHOD 08/12/2024 11:01 AM [facility] Chol/HDL Ratio 1.9 0.0 - 4.4 LAB CHEMISTRY METHOD 08/12/2024 11:01 AM [facility] Blood Venous blood specimen / Unknown Venipuncture / Unknown 08/12/2024 7:54 AM EST 08/12/2024 7:54 AM EST us Floyd Romero MD LAB BLOOD ORDERABLES F inal Result Performing Organization Address [facility]/ZIP Co de Phone Number [facility] [address] [place] [address], [place] [phone] * SCREENING MAMMOGRAPHY BI 2-VIEW BREAST INC [...] in 12 months. BI-RADS: Category 1: Negative us Suyapa Parveen PA IMG XR PROCEDURES Final Result * Hm Hepatitis C Screening (12/24/2023) Hepatitis C Screening abstracted Historical Provider HEALTH MAINTENANCE Final Result * Colonoscopy (03/18/2021) Colonoscopy no interpretation , abstracted Anatomical Region Laterality Modality Other us Historical Provider HEALTH MAINTENANCE Final Result from Last 3 Months or Most Recently Relevant to Health Maintenance Insurance MEDICAID - [place] [employer] MEDICARE Care Teams Tuckpointer Cleaner Caulker Relationship Specialty Start Date End Date Floyd Romero MD [address] [place] [address] PCP - General 09/23/23
--- OUTSIDE RECORDS SUMMARY | 2024-12-19 14:39 | XMS_ITS ---
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 Generated for Wayne knutson/Ximena/Sheryl on:?12/19/2024 02:38 PM EDT History and Physical Notes * HPI (History [...] excrescences. The interspaces are clear, B/L Orthopedic FOOTWEAR EVALUATION: good condition MUSCLE STRENGTH: 5/5 all groups [...]
--- OUTSIDE RECORDS SUMMARY | 2024-12-19 14:39 | XMS_ITS | Encounter Summary ---
Author Organization [facility] Address [address] [place] [address] Care Team Providers Care Running Specialist Name Role Phone Diana Martinez Primary Care Provider + [phone] Carl Goodman MD Unavailable Osmar Chicas MD Unavailable [phone] Encounter Details Date Type Department Care Team (Late st Contact Info) Description 10/13/2023 Scanned Document [facility] Physicians Department of Internal Medicine [place] [address] [place] [address] Diana Martinez PA [address] [place] [address] Social History Tobacco Use Types Packs/Day Years [...] on filedocumented in this encounter Care Teams Running Specialist Relationship Specialty Start Date End Date Diana Martinez PA [address] [place] [phone] PCP - General 01/03/22 Carl Goodman MD [address] [address] Surgery, Orthopedic 01/03/22 Osmar Chicas MD [address] [place] [address] Cardiovascular Disease 01/03/22 documented as of this encounter
--- OUTSIDE RECORDS SUMMARY | 2024-12-19 14:39 | XMS_ITS | Encounter Summary ---
Author Organization [facility] Address [address] [place] [address] Care Team Providers Care Fire Regulator Name Role Phone Diana Martinez Primary Care Provider [phone]- [phone] Carl Goodman MD Unavailable Osmar Chicsa MD Unavailable Encounter Details Date Type Department Care Team (Late st Contact Info) Description 06/19/2022 Erroneous Encounter [facility] CONVERSION DEPT [address] [place] [address] Brian Chong APRN [address] [place] [address] Social History Tobacco Use Types Packs/Day Years [...] on filedocumented in this encounter Care Teams Fire Regulator Relationship Specialty Start Date End Date Diana Martinez PA [address] [place] [phone] PCP - General 01/03/22 Carl Goodman MD [address] [address] Surgery, Orthopedic 01/03/22 Osmar Chicas MD [address] [place] [address] Cardiovascular Disease 01/03/22 documented as of this encounter
--- OUTSIDE RECORDS SUMMARY | 2024-12-19 14:39 | XMS_ITS | Data Portability ---
Author Organization [facility] [address] Address [address] [place] [address] Care Team Providers Care Panelboard Operator Name Role Phone EDI LEONARD Primary Care Provider Assessment No assessment recorded. Plan of Treatment Reminders Order Date Submit Date Provider Last Modified By Organization Details Last Modified Time Details Appointments None recorded. Lab None recorded. Referral None recorded. Procedures None recorded. Surgeries None recorded. Imaging None recorded. Medication Orders ketorolac 30 mg/mL (1 mL) injection solution 2022 023 [email or web address] Not available 13:25:22 Patient TargetsNo targets recorded. Patient Instructions Encounter Date Encounter Id Patient Instructions Last Modified By Organization Details Last Modified Time 11/30/2022 [id number] hip pain: care instructions [email or web address] Not available 11/30/2022 13:17:22 Reason for Referral None Reported. 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 2022 TOBY TEJADA null, [place] - [facility] 3 12:54:37 Traumatic brain injury 405217620 Active 2022 TOBY TEJADA null, [place] - [facility] 3 12:54:50 Seizure disorder 262482452 Active 2022 TOBY TEJADA null, [place] - [facility] 3 12:55:09 Vertigo 963175796 Active 2022 TOBY more, [facility] - [facility] [...] Name and Address Organization Details Recorded Time 126770 amoxicill in medicatio n rash Not available Not available 11/30/2022 723 RxNorm TOBY more, [place] - [facility] 3 12:50:18 873671 morphine medicatio n rash Not available Not available 11/30/2022 7052 RxNorm TOBY TEJADA null, [place] - [facility] 3 12:50:30 543072 Vibramyci n medicatio n gi bleed Not available Not available 11/30/2022 03983 5 RxNorm TOBY TEJADA null, PA - [...] Updated DateTime 3 167.64 cm 34.5 kg/m2 19251.7 7 g 79 /min 97 % 97 % 18 /min 98.3 [degF] 117 mm[Hg] 78 mm[Hg] TOBY TEJADA PA - [facility] 12:58:57 Social History Question Answer Notes LastModified by Organizat ion Details LastModified Time Tobacco Smoking Status Never Smoker TOBY more [place] - [facility] 11/30/2022 12:57:35 What Is Your Level Of Alcohol Consumption? None [email or web address] Information not available 11/30/2022 Which Illicit Or Recreational Drugs Have You Used? Cbd Oil [email or web address] Information not available 11/30/2022 Do You Use Any Illicit Or Recreational Drugs? Yes [email or web address] Information not available 11/30/2022 Have You Recently Traveled Abroad? No Information not available 11/30/2022 Do You Or Have You Ever Used Any Other Forms Of Tobacco Or Nicotine? No [email or web address] Information not available 11/30/2022 Sex: Unknown Functional Status None recorded. Mental Status None recorded. Family History Nothing Reported. Medical History No medical history recorded. Gynecological HistoryNo gynecological history recorded. Obstetrics History GPAL:G 0 P 0 0 0 0 Past Encounters Encounter ID Performer Location Encounter Start Date Encounter Closed Date Diagnosis/Indication Diagnosis SNOMED-CT Code Diagnosis ICD10 Code Diagnosis Note [id number] [address] [facility] [address] [place] [address] 07/15/2016 17:08:30 07/15/2016 17:46:27 [id number] [address] [place] [address] 05/02/2018 14:17:45 05/02/2018 15:36:19 [id number] [address] [place] [address] 03/27/2019 18:05:44 03/27/2019 18:42:56 [id number] [address] [place] [address] 02/15/2019 08:37:37 02/15/2019 09:00:52 [id number] [address] [place] [address] 12/30/2017 09:27:49 12/30/2017 10:05:50 [id number] [address] [place] [address] 09/13/2019 17:37:31 09/13/2019 19:09:59 [id number] [address] [place] [address] 07/13/2016 13:41:57 07/13/2016 15:06:16 [id number] [address] [facility] [place] [address] 01/02/2018 08:18:58 01/02/2018 09:11:25 [id number] [address] [facility] [place] [address] 03/01/2018 08:30:18 03/01/2018 09:38:51 [id number] [address] [facility] [place] [address] 05/19/2018 08:20:14 05/19/2018 08:49:28 [id number] Jeremy Moses DO [address] [facility] [place] [address] 11/30/2022 12:33:28 11/30/2022 13:40:19 Pain in right hip joint 8586642247 60558 M25.551 recommend resttyleno l 1 g every 8 htrial of im toradol x 1Reviewed with patient potential adverse side effects of the medication .call treating ortho in [place] for evaluation Patient advised to follow up [...] LIFE [employer] - OPEN ACCESS PLUS [id number] Nina Bella [id number] Nina Bella 02/15/2019 1 [facility] [employer] - OPEN ACCESS PLUS [id number] Nina Forbesetecha [id number] Nina Bear [employer] 03/27/2019 1 [facility] [employer] - OPEN ACCESS PLUS [id number] Nina Bear Wiet[employer]a [id number] Nina Bear [place] 09/13/2019 1 [facility] [employer] - OPEN ACCESS PLUS [id number] Nina Forbesetecha [id number] 501 Nina Bear [place] 11/30/2022 [address] [place] [address] 2 Nina Forbesetecha [id number] Nina Bella Notes Date Note Type Note [...] DO [address] [place], [address], [place] - [facility] 11/30/2022 14:31:47 OBGyn Episode No OBEpisode recorded.
--- OUTSIDE RECORDS SUMMARY | 2024-12-19 14:39 | XMS_ITS | Encounter Summary ---
Author Organization [facility] Address [address] [place] [address] Care Team Providers Care Chief Power Dispatcher Name Role Phone Diana Martinez Primary Care Provider [phone]- [phone] Carl Goodman MD Unavailable Osmar Chicas MD Unavailable [phone] Encounter Details Date Type Department Care Team (Late st Contact Info) Description 05/01/2022 Erroneous Encounter [facility] CONVERSION DEPT [address] [place] [address] ProviderLorena MD Social History Tobacco [...] filedocumented in this encounter Care Teams Chief Power Dispatcher Relationship Specialty Start Date End Date Diana Martinez PA [address] [address] PCP - General 01/03/22 Carl Goodman MD [address] [address] Surgery, Orthopedic 01/03/22 Osmar Chicas MD [address] [place] [address] Cardiovascular Disease 01/03/22 documented as of this encounter
--- OUTSIDE RECORDS SUMMARY | 2024-12-19 14:39 | XMS_ITS | Encounter Summary ---
Author Organization [facility] Address [address] [place] [address] Care Team Providers Care Mail Weigher Name Role Phone Diana Martinez Primary Care Provider + [phone] Carl Goodman MD Unavailable Osmar Chicas MD Unavailable [phone] Encounter Details Date Type Department Care Team (Late st Contact Info) Description 10/12/2023 Scanned Document [facility] Physicians Department of Internal Medicine [place] [address] [place] [address] Diana Martinez PA [address] [place] [address] Social History Tobacco Use Types Packs/Day Years [...] on filedocumented in this encounter Care Teams Mail Weigher Relationship Specialty Start Date End Date Diana Martinez PA [address] [place] [phone] PCP - General 01/03/22 Carl Goodman MD [address] [address] Surgery, Orthopedic 01/03/22 Osmar Chicas MD [address] [place] [address] Cardiovascular Disease 01/03/22 documented as of this encounter
--- OUTSIDE RECORDS SUMMARY | 2024-12-19 14:39 | XMS_ITS | Encounter Summary ---
Author Organization [facility] Address [address] [place] [address] Care Team Providers Care Hemotherapist Name Role Phone [place] Martinez Primary Care Provider [phone]- [phone] Carl Goodman MD Unavailable Osmar Chicas MD Unavailable Encounter Details Date Type Department Care Team (Late st Contact Info) Description 05/20/2022 Erroneous Encounter [facility] DEPT [address] [place] [address] Anthony Landeros MD 111 [facility] 8 [place], [place] [id number] Social History Tobacco Use Types Packs/Day Years [...] on filedocumented in this encounter Care Teams Hemotherapist Relationship Specialty Start Date End Date [place] Martinez PA [address] [place] [address] PCP - General 01/03/22 Carl Goodman MD [address] [address] Surgery, Orthopedic 01/03/22 Osmar Chicas MD [address] [address] Cardiovascular Disease 01/03/22 documented as of this encounter
--- OUTSIDE RECORDS SUMMARY | 2024-12-19 14:39 | XMS_ITS | Clinical Summary ---
Author Organization [facility] Address [address] [place] [address] Care Team Providers Care Leaf Fat Scraper Name Role Phone [place] Primary Care Provider [phone]- [phone] Carl Goodman MD Unavailable Osmar Chicas MD Unavailable [phone] Allergies Active Allergy Reactions Criticality Noted Date [...] 10/19/2020, 09/28/2020 Medical Devices Implanted Type Area Home Housekeeper Device Identifier Shelf Expiration Date Model / Serial / Lot [id number] Spacer Spinal [id number] Rise-L 10d Nonst - [id number] Implanted:Qty: 2 on 02/05/2022 by [place] Goodman MD at [facility] Cage N/A: Spine Lumbar [employer] [id number] / / 6.5x55 Voyager Mas Screw Implanted:Qty: 2 on 02/05/2022 by [place] Goodman MD at [facility] Screw N/A: Spine Lumbar [employer] MINIMALLY INVASIVE T [id number] / / [id number] Screw Set 5.5/6mm Cd Hzn Soleral Vygr Nonst Lf - [id number] Implanted:Qty: 6 on 02/05/2022 by [place] Goodman MD at [facility] Screw N/A: Spine Lumbar [employer] MINIMALLY INVASIVE T [id number] / / [id number] Screw Bone Spine Cd Hzn Vygr 50mm 6.5mm Ma Nonst 5.5mm Nestor - [id number] Implanted:Qty: 2 on 02/05/2022 by [place] Goodman MD at [facility] Spine N/A: Spine Lumbar [employer] MINIMALLY INVASIVE T [id number] / / [id number] Screw Bone Spine Cd Hzn Vygr 45mm 6.5mm Ma Nonst 5.5mm Nestor - [id number] Implanted:Qty: 2 on 02/05/2022 by [place] Goodman MD at [facility] Spine N/A: Spine Lumbar [employer] MINIMALLY INVASIVE T [id number] / / [id number] Tab Fixation 5.5/6mm Spine Die Forger Sleeve - [id number] Implanted:Qty: 12 on 02/05/2022 by [place] Goodman MD at [facility] Spine N/A: Spine Lumbar [employer] MINIMALLY INVASIVE T [id number] / / [id number] Graft Bone 23mm 14mm Infs Sm Spine Rhbmp-2 Bvn Collagen - [id number] Implanted:Qty: 1 on 02/05/2022 by [place] Goodman MD at [facility] Tissue N/A: Spine Lumbar [employer] MINIMALLY INVASIVE T 06/06/2024 [id number] / / [id number] Graft Bone Kore Fiber Marcial Bone Fiber 5cc Algrf Mld High - [id number] Implanted:Qty: 1 on 02/05/2022 by [place] Goodman MD at [facility] Tissue N/A: Spine Lumbar [employer] 02/21/2024 [id number] / [id number] / 5.5/6.0 Sv Cap Implanted:Qty: 6 on 02/05/2022 by [place] Goodman MD at [facility] N/A: Spine Lumbar [employer] MINIMALLY INVASIVE T [id number] / / 5.5 Ccm Prec Nestor 80mm Implanted:Qty: 2 on 02/05/2022 by [place] Goodman MD at [facility] N/A: Spine Lumbar [employer] MINIMALLY INVASIVE T [id number] / / Explanted Type Area Home Housekeeper Device Identifier Shelf Expiration Date Model / Serial / Lot [id number] Screw Bone Spine Schnz 120mm 4mm - [id number] Explanted:Qty: 1 on 02/05/2022 at [facility] Spine N/A: Spine Lumbar [employer] MINIMALLY INVASIVE T [id number] / / Description:supply item Advance Directives * Full Code (Latest Code Status on File) Date Activated Date Inactivated Comments 02/05/2022 6:30 PM * Full Code Date Activated Date Inactivated Comments 02/05/2022 10:09 AM 02/05/2022 6:30 PM Care Teams Leaf Fat Scraper Relationship Specialty Start Date End Date [place] Martinez PA [address] [place] [address] PCP - General 01/03/22 Carl Goodman MD [address] [address] Surgery, Orthopedic 01/03/22 Osmar Chicas MD [address] [place] [address] Cardiovascular Disease 01/03/22
--- OUTSIDE RECORDS SUMMARY | 2024-12-19 14:39 | XMS_ITS | Encounter Summary ---
Author Organization [facility] Address [address] [place] [address] Care Team Providers Care Confectionery Maker Name Role Phone [place] Martinez Primary Care Provider + [phone] Carl Goodman MD Unavailable Osmar Chicas MD Unavailable [phone] Encounter Details Date Type Department Care Team (Late st Contact Info) Description 10/23/2023 Scanned Document [facility] Department of Internal Medicine [address] [place] [address] [place] Martinez PA [address] [place] [address] Social History Tobacco Use Types Packs/Day Years [...] on filedocumented in this encounter Care Teams Confectionery Maker Relationship Specialty Start Date End Date [place] Martinez PA [address] [place] [id number] PCP - General 01/03/22 Carl Goodman MD [address] [address] Surgery, Orthopedic 01/03/22 Osmar Chicas MD [address] [place] [address] Cardiovascular Disease 01/03/22 documented as of this encounter
--- OUTSIDE RECORDS SUMMARY | 2024-12-19 14:39 | XMS_ITS | Data Portability ---
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 [email or web address] Not available 11/13/2023 15:19:18 02/04/2024 02/04/2024 Patient is doing well status post C6-7 anterior cervical diskectomy with allograft fusion. She does have some lower back pain and radiculopathy to the right groin suspicious for L3 radiculopathy. [email or web address] Not available 02/04/2024 14:02:16 03/03/2024 03/03/2024 Patient is recovering with moderate reactivation of cervical spondylosis below the level of her fusion. [email or web address] Not available 03/03/2024 12:30:46 04/14/2024 04/14/2024 Patient is recovering status post anterior cervical discectomy with allograft fusion below the level of fusion at C6-7. [email or web address] Not available 04/14/2024 13:45:59 Plan of Treatment [...] serie s No observ ation record ed. [facility] [address] [place], [address], 10/12/2023 10:26:42 10/11/19 24 10/09/2023 XR, spine , scoli osis serie s No observ ation record ed. [facility] [address] [place], [address], 10/12/2023 10:34:03 10/21/19 24 10/20/2023 MRI, lumba r spine , w/o contr ast No observ ation record ed. [facility] ([place] [facility] [address] [place], [address], 10/22/2023 13:51:34 10/21/19 24 10/20/2023 MRI, cervi thu spine , w/o contr ast No observ ation record ed. [email or web address] [facility] [address] [place], [address], 10/22/2023 13:51:35 01/18/20 24 01/13/2024 elect aminta parmar am No observ ation record ed. [facility] Atention: Jose Rafael [address] [place], [address], 01/19/2024 09:17:55 01/22/20 24 01/18/2024 XR, cervi thu spine , 2 or 3 view No observ ation record ed. [facility] Atention: Jose Rafael [address] [place], [address], 01/26/2024 09:52:50 02/05/20 24 02/04/2024 XR, cervi thu spine , 2 or 3 view No observ ation record ed. [facility] (Medical Records) [address] [place], [address], 02/08/2024 10:04:41 02/05/20 24 02/04/2024 XR, cervi thu spine , 2 or 3 view No observ ation record ed. [facility] (Medical Records) [address] [place], [address], 02/08/2024 10:45:46 02/05/20 24 02/04/2024 XR, lumba r spine No observ ation record ed. [email or web address] Not Available 2023 10:45:23 02/05/20 24 02/04/2024 XR, lumba r spine No observ ation record ed. [facility] (Medical Records) [address] [place], [address], 02/08/2024 10:04:41 03/03/20 24 03/03/2024 XR, cervi thu spine , 2 or 3 view No observ ation record ed. [email or web address] [facility] (Medical Records) [address] [place], [address], 03/04/2024 09:49:59 03/03/20 24 03/03/2024 XR, cervi thu spine , 2 or 3 view No observ ation record ed. [email or web address] Not Available 2023 10:53:50 04/16/20 24 04/14/2024 XR, cervi thu spine , 2 or 3 view No observ [facility]ion [facility] ed. [facility] [address] [place], [address], 04/18/2024 11:22:21 04/16/20 24 04/14/2024 XR, cervi thu spine , 2 or 3 view No observ [facility]ion [facility] ed. [facility] [address] [place], [address], 04/18/2024 12:55:18 04/18/20 24 04/14/2024 XR, cervi thu spine , 2 or 3 view No observ ation record ed. [email or web address] Not Available 2023 11:08:46 04/18/20 24 04/14/2024 XR, cervi thu spine , 2 or 3 view No observ ation record ed. [address], [address], 04/20/2024 10:07:20 Result Notes None recorded. Problems Name Problem SNOMED Code Status Onset Date Resolution Date Notes Provider Name and Address Organization Details Recorded Time Spinal stenosis in cervical region 89018397 Active DAVION De Jesus [address] [place] [address], [phone] , [facility] 4 15:19:08 Problem Notes None recorded. Procedures Surgical History Date Name Laterality Status Provider Name and Address Organization Details Recorded Time 3 total replacement of right hip joint completed Nabila Garcia [facility] 4 13:25:44 2 lumbar spinal fusion completed Nabila Garcia [facility] 02/04/2024 13:25:16 1 primary fusion of cervical spine completed Nabila Garcia [facility] 02/04/2024 13:25:01 0 shoulder surgery completed Nabila Garcia [facility] 02/04/2024 13:24:41 8 total replacement of left hip joint completed Nabila Garcia [facility] 02/04/2024 13:24:14 Imaging Results Imaging Date Name Status LastModified by Organization Details LastModified Time 12/16/2022 MRI, lumbar spine, w/o contrast completed [facility] Information not available 10/09/2023 13:15:44 10/09/2023 XR, spine, scoliosis series completed [address], [address], 10/12/2023 10:26:42 10/09/2023 XR, spine, scoliosis series completed [address], [address], 10/12/2023 10:34:03 10/20/2023 MRI, lumbar spine, w/o contrast completed [facility] ([place] [facility] [address] [place], [address], 10/22/2023 13:51:34 10/20/2023 MRI, cervical spine, w/o contrast completed [facility] ([place] [facility] [address] [place], [address], 10/22/2023 13:51:35 01/13/2024 electrocardiogram completed [facility] Atention: Jose Rafael [address] [place], [address], 01/19/2024 09:17:55 01/18/2024 XR, cervical spine, 2 or 3 view completed [facility] Atention: Jose Rafael [address] [place], [address], 01/26/2024 09:52:50 02/04/2024 XR, cervical spine, 2 or 3 view completed [facility] (Medical Records) [address] [place], [address], 02/08/2024 10:04:41 02/04/2024 XR, cervical spine, 2 or 3 view completed [email or web address] (Medical Records) [address] [place] [address], [address], 02/08/2024 10:45:46 02/04/2024 XR, lumbar spine completed Informat ion not available 02/08/2024 10:45:23 02/04/2024 XR, lumbar spine completed [email or web address] (Medical Records) [address] [place] [address], [address], 02/08/2024 10:04:41 03/03/2024 XR, cervical spine, 2 or 3 view completed [email or web address] [facility] (Medical Records) [address] [place] [address], [address], 03/04/2024 09:49:59 03/03/2024 XR, cervical spine, 2 or 3 view completed Information not available 03/04/2024 10:53:50 04/14/2024 XR, cervical spine, 2 or 3 view completed [email or web address] [address], [address], 04/18/2024 11:22:21 04/14/2024 XR, cervical spine, 2 or 3 view completed [email or web address], [address], 04/18/2024 12:55:18 04/14/2024 XR, cervical spine, 2 or 3 view completed Information not available 04/19/2024 11:08:46 04/14/2024 XR, cervical spine, 2 or 3 view completed [email or web address], [address], 04/20/2024 10:07:20 Procedure Notes None recorded. Medical Equipment None Reported. Allergies Allergen ID Allergen Name Allergen Category Reaction Reaction Severity Criticality Documentation Date Start Date Code Code System Note Provider Name and Address Organization Details Recorded Time 4481410 amoxicill in medicatio n rash Not available Not available 02/04/2024 723 RxNorm Nabila more, [facility] 4 13:23:28 7801208 morphine medicatio n rash Not available Not available 02/04/2024 7052 RxNorm Nabila more, [facility] 4 13:23:39 9742634 Vibramyci n medicatio n gi bleed Not available Not available 02/04/202410795 5 RxNorm Nabila more, [facility] 4 13:23:50 Medications Name Sig Start [...] Updated DateTime 10/09/2023 167.64 cm 35.5 kg/m2 78500.32 g Nabila Garcia [facility] 10/09/2023 14:18:33 Date Recorded Body height Body mass index (BMI) Body weight Provider Name and Address Organization Details Last Updated DateTime 02/04/2024 167.64 cm 35.5 kg/m2 12910.32 g Nabila Garcia [facility] 02/04/2024 13:14:10 Social History None recorded. Functional Status None recorded. Mental Status None recorded. Family History Nothing Reported. Medical History Condition Response seizure disorder Y anxiety disorder Y arthritis Y depression Y hypertension Y stroke Y Gynecological HistoryNo gynecological history recorded. Obstetrics History GPAL:G 0 P 0 0 0 0 Past Encounters Encounter ID Performer Location Encounter Start Date Encounter Closed Date Diagnosis/Indication Diagnosis SNOMED-CT Code Diagnosis ICD10 Code Diagnosis Note [id number] Sonido Maldonado MD [facility] [address] [address] 10/09/2023 12:17:04 10/09/2023 15:45:27 Spinal stenosis in cervical region 60298335 M48.02 We discussed the potential benefit of a revision fusion at C6-7. [id number] Sonido Maldonado MD [facility] [address] [address] 11/13/2023 13:54:32 11/13/2023 15:02:23 Spinal stenosis in cervical region 59247486 M48.02 We discussed the potential benefit of [...] to the assessment and plan for details. [id number] DAVION Nuno [facility] [address] [address] 02/04/2024 12:13:22 02/04/2024 14:36:09 Spinal stenosis in cervical region 30905414 M48.02 She will resume normal activity. I recommend a course of physical therapy. She will transition from a hard collar to a soft collar today to wear as needed. All questions were answered in a mike candid manner. Follow up in 3-4 weeks with repeat cervical imaging Lumbar spondylosis [address] 0009 M47.896 I recommend she continue with conservati ve management . If pain worsens she could benefit from injections . All questions were answered. [id number] DAVION Nuno [facility] [address] [address] 03/03/2024 11:48:32 03/03/2024 12:06:03 Spinal stenosis in cervical region 33532223 M48.02 I recommend gentle increase in range of motion and exercise. I discussed the pathophysi ology and natural history in great detail. She will resume normal activity as tolerated. Follow-up as needed or interval basis. [id number] Sonido Maldonado MD [facility] [address] [address] 04/14/2024 12:10:58 04/14/2024 14:21:20 Spinal stenosis in cervical region 58506957 M48.02 She will continue to increase activity [...] Carty Member ID Guarantor Name 10/09/2023 1 [facility] (MEDICARE REPLACEMENT/A DVANTAGE - PPO) [id number] Nina Bella [id number] Nina Bella 10/09/2023 2 [place] [facility] Nina Bella [id number] Nina De La Cruzcha 11/13/2023 1 [facility] (MEDICARE REPLACEMENT/A DVANTAGE - PPO) [id number] Nina Bella [id number] Nina Forbesetecha 11/13/2023 2 [place] [facility] Nina Bella [id number] Nina Bear Wietecha 02/04/2024 1 [facility] (MEDICARE REPLACEMENT/A DVANTAGE - PPO) [id number] Nina Bella [id number] Nina Bear Wietecha 02/04/2024 2 [place] Nina Bella [id number] Nina [employer]et[employer]a 03/03/2024 1 [facility] (MEDICARE REPLACEMENT/A DVANTAGE - PPO) [id number] Nina Bella [id number] Nina Bear Wietecha 03/03/2024 2 [place] [facility] Nina Bella [id number] Nina [employer]et[employer]a 04/14/2024 1 [facility] (MEDICARE REPLACEMENT/A DVANTAGE - PPO) [id number] Nina Bella [id number] Nina De La Cruzcha 04/14/2024 2 [place] Nina Bella [id number] Nina [place] Notes Date Note Type Note [...] driving for 18 months. Sonido Maldonado MD [address] [place] [address], [phone], [facility] 10/09/2023 22:10:38 11/13/2023 text/html I had [...] it helps her sleep. Sonido Maldonado MD [address] [place] [address], [phone], [facility] 11/13/2023 23:09:37 02/04/2024 text/html Ms. Bella [...] pain is improved with rest. DAVION Nuno [address] [place] [address], [phone], [facility] 02/04/2024 14:26:17 03/03/2024 text/html Ms. Bella [...] denies fever or chills. DAVION Nuno [address] [place], [address], [facility] 03/03/2024 12:31:51 04/14/2024 text/html Ms. Wietecha [...] she is doing well. Sonido Maldonado MD [address] [place] [address], [phone], [facility] 04/14/2024 21:27:20 OBGyn Episode No OBEpisode recorded.
--- OUTSIDE RECORDS SUMMARY | 2024-12-19 14:39 | XMS_ITS | Data Portability ---
Author Organization [facility], Medical [facility] ([place] Address [address] [address] Assessment Encounter Date Assessment Date Assessment LastModified [...] - pursue right stellate ganglion block today [email or web address] Not available 07/03/2021 15:34:51 Plan of Treatment [...] Ganglion Block completed Gerry Rodriguez MD [address], , [facility] 07/03/2021 15:34:40 total replacement of hip completed Gerry Rodriguez MD [address], , [facility] 07/04/2021 12:51:02 arthroscopy of shoulder completed Gerry Rodriguez MD [address], , [facility] 07/04/2021 12:51:46 Imaging Results None recorded. Procedure Notes None recorded. Medical Equipment None Reported. Allergies Allergen ID Allergen Name Allergen Category Reaction Reaction Severity Criticality Documentation Date Start Date Code Code System Note Provider Name and Address Organization Details Recorded Time 59835 morphine medicatio n Not available Not available Not available 07/03/2021 7052 RxNorm Not Available Not Available Not Available 77665 amoxicill in medicatio n Not available Not available Not available 07/03/2021 723 RxNorm Not Available Not Available Not Available 60892 Vibramyci n medicatio n Not available Not [...] SNOMED-CT Code Diagnosis ICD10 Code Diagnosis Note [id number] Mary Campos MD [address] [address] 07/04/2021 12:33:39 07/04/2021 13:29:01 Posttraumatic stress disorder 18938713 F43.10 Chronic post-traumatic stress disorder 337841380 F43.12 Health Concerns Section Related Observation LastModified [...] / ANXIETY Onset: Patient presents from the [facility] for PTSD. Patient has never been [...] Tried: sertraline, memantine, zolpidem Mary Campos MD [address] [place] [address], [address] Floor, [place], [address], [facility] 07/04/2021 13:09:31 OBGyn Episode No OBEpisode recorded.
--- OUTSIDE RECORDS SUMMARY | 2024-12-19 14:40 | XMS_ITS | Encounter Summary ---
Author Organization [facility] Address [address] [place] [address] Care Team Providers Care Inspector Wire Products Name Role Phone [place] Primary Care Provider [phone]- [phone] Carl Goodman MD Unavailable Osmar Chicas MD Unavailable [phone] Encounter Details Date Type Department Care Team (Late st Contact Info) Description 12/15/2022 Scanned Document [facility] Department of Internal Medicine [place] [address] [place] [address] [place] PA [address] [place] [address] Social History Tobacco Use Types [...] on filedocumented in this encounter Care Teams Inspector Wire Products Relationship Specialty Start Date End Date [place] Martinez PA [address] [place] [address] PCP - General 01/03/22 aCrl Goodman MD [address] [address] Surgery, Orthopedic 01/03/22 Osmar Chicas MD [address] [place] [address] Cardiovascular Disease 01/03/22 documented as of this encounter
--- OUTSIDE RECORDS SUMMARY | 2024-12-19 14:40 | XMS_ITS | Encounter Summary ---
Author Organization [facility] Address [address] [place] [address] Care Team Providers Care Manager Floral Name Role Phone Brian Chong APRN Primary Care Provider [phone] [place] Primary Care Provider + [phone] [place] MD Unavailable Osmar Chicas MD Unavailable [phone] Encounter Details Date Type Department Care Team (Late st Contact Info) Description 10/04/2018 Scanned Document [facility] [place] at [address] [address] Spine Surgery, Scan Social History [...] filedocumented in this encounter Care Teams Manager Floral Relationship Specialty Start Date End Date Brian Chong APRN [address] [place] [address] PCP - General Adult Health - PA/APNP/STUDY SPECIALIST/FULL STACK PYTHON DEVELOPER 09/29/18 01/02/22 [place] PA [address] [place] [address] PCP - General 01/03/22 Carl Goodman MD [address] [place] [address] Surgery, Orthopedic 01/03/22 Osmar Chicas MD [address] [facility] [address] [place] [id number] Cardiovascular Disease 01/03/22 documented as of this encounter
--- OUTSIDE RECORDS SUMMARY | 2024-12-19 14:40 | XMS_ITS | Encounter Summary ---
Author Organization [facility] Address [address] [place] [address] Care Team Providers Care Engraver Machine Name Role Phone [place] Primary Care Provider + [phone] Carl Goodman MD Unavailable Osmar Chicas MD Unavailable [phone] Encounter Details Date Type Department Care Team (Late st Contact Info) Description 02/10/2023 Scanned Document [facility] Department of Internal Medicine [place] [address] [place] [address] [place] Martinez PA [address] [place] [address] Social History Tobacco Use Types Packs/Day Years [...] on filedocumented in this encounter Care Teams Engraver Machine Relationship Specialty Start Date End Date [place] PA [address] [place] [id number] PCP - General 01/03/22 Carl Goodman MD [address] [address] Surgery, Orthopedic 01/03/22 Osmar Chicas MD [address] [place] [address] Cardiovascular Disease 01/03/22 documented as of this encounter
--- OUTSIDE RECORDS SUMMARY | 2024-12-19 14:40 | XMS_ITS ---
Author Organization [facility] Address [address] [place] [address] Care Team Providers Care Home Care And Home Health Aides Teacher Name Role Phone Floyd Romero Primary Care Provider Aleisha Holguin Unavailable [phone] REASON FOR VISIT bought Pedag viva sport red #40 Encounters Encounter Location Date Provider Diagnosis [facility] [address] [place] [address] 07/13/2024 Aleisha Mahan Plan Of Treatment No Information Progress Notes * Sindy BELLAOB:[birth year] (59 yo F)Acc No.[id number]:07/13/2024 Patient:?Nina Bella :1965???Age:59 Y???Sex:Female Address:[address] [facility] [place] [address] * true * Date:? Generated for Printi eamon/Faabbey/eTransmitting on:?12/19/2024 02:40 PM EDT
--- OUTSIDE RECORDS SUMMARY | 2024-12-19 14:40 | XMS_ITS | Patient Health Record ---
Author [facility] [address] [facility] [place] [address] Care Team Providers Care Social And Political Studies Professor Name Role Phone Floyd Romero Primary Care Provider Aleisha Holguin Unavailable [phone] Allergies Allergen (clinical drug ingredient) Drug/Non Drug [...] W/U Status Risk Notes Problem Plantar fibromatosis (93494450) Plantar fibromatosis (M72.2) Active confirmed Problem Plantar fascial fibromatosis (99976964) Plantar fasciitis, bilateral (M72.2) Active confirmed Vital Signs Blood pressure diastolic 80 mm Hg 09/21/2024 Height 5ft6in in 09/21/2024 Blood pressure systolic 120 mm Hg 09/21/2024 Weight 190 lbs 09/21/2024 BMI 30.66 kg/m2 09/21/2024 Encounters Encounter Location Date Provider [facility] [address] [place] [address] 07/13/2024 Aleisha Mahan Pain in right foot M79.671 ; Plantar fibromatosis M72.2 and 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 [address] 09/21/2024 Aleisha Mahan Plantar fibromatosis M72.[address] [address] 06/27/2024 Aleisha Perica [address] [address] 07/13/2024 [facility] [address] 07/13/2024 Aleisha Mahan Assessments Encounter Date Diagnosis [...] Date Coverage End Date [employer] Medicare [id number] [address] [address] [place] [address] [id number] Nina Bella Self - patient is the insured Medical (General) History Medical History History ICD Code Arthritis Back,Hip,and Knee pain Depression Seizures High Blood Pressure Numbness Chicken pox Joint implants/screws Surgical History Surgery Date(Month/Year) hip replacement back fusions endoscopy 07/12/24 colonoscopy 07/08/24
--- OUTSIDE RECORDS SUMMARY | 2024-12-19 14:40 | XMS_ITS | Clinical Summary ---
Author Organization [facility] Address [address] [place] [address] Care Team Providers Care Interior Design Assistant Name Role Phone Diana Martinez Primary Care Provider +1- [phone] Allergies Active Allergy Reactions Criticality Noted Date [...] this topic Medical Devices Implanted Type Area Furniture Associate Device Identifier Shelf Expiration Date Model / Serial / Lot Surgiflo Hemostatic Matrix Kathryn-Ethi [id number] - [id number] Implanted:Qty : 2 on 08/09/2021 by Andrea Polanco DO at [facility] and [facility] Hemostatic Agent Anterior: Spine Cervical [employer] 11/04/2022 2991 / / [id number] Size 5 Standard Tapered Stem Cementless Implanted:Qty : 1 on 12/29/2022 by Clifton Esteban MD at [facility] and [facility] Total Joint Right: Hip [id number] 10/01/2027 / / [id number] +4 Femoral Head Implanted:Qty : 1 on 12/29/2022 by Clifton Esteban MD at [facility] and [facility] Total Joint Right: Hip [id number] 07/04/2026 / / [id number] Description:Renata 36mm +4mm Acetabular Liner 36mm X 52\54 10?? Hooded E-Max - 472641 - [id number] Implanted:Qty : 1 on 04/07/2018 by Bairon Adame MD at [facility] and [facility] Left: Hip RENOVI 09/19/2022 1523-365 -254 / / [id number] Cancellous Bone Screw 6.5mm X 20mm - [id number] - [id number] Implanted:Qty : 1 on 04/07/2018 by Bairon Adame MD at [facility] and [facility] Left: Hip RENOVI 10/26/2022 1501-865 -020 / / [id number] Acetabular Bone Screw 6.5mm X 30mm - 160402 - [id number] Implanted:Qty : 1 on 04/07/2018 by Bairon Adame MD at [facility] and [facility] Left: Hip RENOVI 08/22/2021 1501-865 -030 / / [id number] Stem Tapered Femoral Extended-Late ral Offset 6.75mm - 248652 - [id number] Implanted:Qty : 1 on 04/07/2018 by Bairon Adame MD at [facility] and [facility] Left: Hip RENOVI 07/21/2022 1401-922 -067 / / [id number] Biolox?? Delta Ceramic Femoral Head Sz 36mm -4 - 565547 - [id number] Implanted:Qty : 1 on 04/07/2018 by Bairon Adame MD at [facility] and [facility] Left: Hip RENOVI 03/03/2022 1451-036 -004 / / [id number] Plate Yellow Medicine 57mm 3 Level Bone Stry-K2m Sh20-80q59r-5 77480 - [id number] Implanted:Qty : 1 on 08/09/2021 by Andrea Polanco DO at [facility] and [facility] Anterior: Spine Cervical [employer] [id number] 57V / / Screw Yellow Medicine Self-Start 4x16mm Stry-K2m 8801-26636in- 387575 - [id number] Implanted:Qty : 7 on 08/09/2021 by Andrea Polanco DO at [facility] and [facility] Anterior: Spine Cervical [employer] 8801-040 16DA / / Screw Yellow Medicine 16mm 4.5mm Self St Stry-Howm 8801-56892bt- 819720 - [id number] Implanted:Qty : 1 on 08/09/2021 by Andrea Polanco DO at [facility] and Med Anterior: Spine Cervical [employer] 8801-045 16DA / / Spacer Vikos 14.5x11.5x8mm 7d Stry-Spin 8714-53448b-2 72957 - [id number] Implanted:Qty : 1 on 08/09/2021 by Andrea Polanco DO at [facility] and Med Anterior: Spine Cervical [employer] 06/12/2025 2504-214 08L / [id number] / Spacer Vikos 14.5x11.5x7mm 7d Stry-Spin 7083-82595f-9 18222 - [id number] Implanted:Qty : 1 on 08/09/2021 by Andrea Polanco DO at [facility] and Med Anterior: Spine Cervical [employer] 10/24/2025 2504-214 07L / [id number] / Spacer Vikos 14.5x11.5x7mm 7d Stry-Spin 9924-37796j-1 21596 - [id number] Implanted:Qty : 1 on 08/09/2021 by Andrea Polanco DO at [facility] and [facility] Anterior: Spine Cervical [employer] 08/02/2025 2504-214 07L / [id number] / Hip Cup Marie Tpr 52mm Sz3 Crng-Manu 321.03.352-63 6960 - [id number] Implanted:Qty : 1 on 12/29/2022 by Clifton Esteban MD at [facility] and [facility] Right: Hip [employer] [id number] 10/13/2027 321.03.3 52 / / [id number] Screw Marie 6.5x25mm Crng-Manu 321.025-26887 7 - [id number] Implanted:Qty : 1 on 12/29/2022 by Clifton Esteban MD at [facility] and Med Right: Hip [employer] [id number] 09/02/2027 321.025 / / [id number] Screw Marie 6.5x20mm Crng-Manu 321.020-86257 6 - [id number] Implanted:Qty : 1 on 12/29/2022 by Clifton Esteban MD at [facility] and Med Right: Hip [employer] [id number] 10/02/2027 321.020 / / [id number] Marie Liner Ecima Neutral Offset Implanted:Qty : 1 on 12/29/2022 by Clifton Esteban MD at [facility] and Med Right: Hip [employer] 10/29/2027 322.03.6 36 / / [id number] Explanted Type Area Furniture Associate Device Identifier Shelf Expiration Date Model / Serial / Lot Acetabular Shell Cluster Hole Sz 54mm - [id number] - [id number] Implanted:Qty: 1 on 04/07/2018 by Bairon Adame MD at [facility] and Med Explanted:Qty: 1 on 02/11/2023 at [facility] and [facility] Left: Hip RENOVI 12/13/2021 1501-121 -05 3553-2 Advance Directives For more information, please contact: [phone] Documents on File Type Date Recorded Patient Pediatric Psychiatrist Expl anation Advance Directive and Living Will [...] in the following way: discussion with healthcare representative personal service . Full Code 08/09/2021 12:40 PM 08/12/2021 9:22 PM This code status was ascertained in the following way: discussion with patient . Care Teams Interior Design Assistant Relationship Specialty Start Date End Date Diana Martinez PA [address] [place] [address] PCP - General Physician Psychiatry Teacher 12/29/22
--- OUTSIDE RECORDS SUMMARY | 2024-12-19 14:40 | XMS_ITS | Encounter Summary ---
Author Organization [facility] Address [address] [place] [address] Care Team Providers Care Associate Vice President Name Role Phone Diana Martinez Primary Care Provider +1- [phone] Carl Goodman MD Unavailable Osmar Chicas MD Unavailable [phone] Encounter Details Date Type Department Care Team (Late st Contact Info) Description 11/12/2022 Scanned Document [facility] Department of Internal Medicine [place] [address] [place] [address] Diana Martinez PA [address] [place] [address] Social History Tobacco Use Types [...] on filedocumented in this encounter Care Teams Associate Vice President Relationship Specialty Start Date End Date Diana Martinez PA [address] [place] [address] PCP - General 01/03/22 Carl Goodman MD [address] [address] Surgery, Orthopedic 01/03/22 Osmar Chicas MD [address] [place] [address] Cardiovascular Disease 01/03/22 documented as of this encounter
--- OUTSIDE RECORDS SUMMARY | 2024-12-19 14:40 | XMS_ITS | Encounter Summary ---
Author Organization [facility] Address [address] [place] [address] Care Team Providers Care Concrete Paving Supervisor Name Role Phone Diana Martinez Primary Care Provider +1- [phone] Carl Goodman MD Unavailable Osmar Chicas MD Unavailable [phone] Encounter Details Date Type Department Care Team (Late st Contact Info) Description 12/07/2022 Scanned Document [facility] Department of Internal Medicine [place] [address] [place] [address] Diana Martinez PA [address] [place] [address] Social History Tobacco Use Types [...] on filedocumented in this encounter Care Teams Concrete Paving Supervisor Relationship Specialty Start Date End Date Diana Martinez PA [address] [place] [address] PCP - General 01/03/22 Carl Goodman MD [address] [address] Surgery, Orthopedic 01/03/22 Osmar Chicas MD [address] [place] [address] Cardiovascular Disease 01/03/22 documented as of this encounter
--- OUTSIDE RECORDS SUMMARY | 2024-12-19 14:40 | XMS_ITS | Encounter Summary ---
Author Organization [facility] Address [address] [place] [address] Care Team Providers Care X Ray Equipment Mechanic Name Role Phone Diana Martinez Primary Care Provider +1- [phone] Carl Goodman MD Unavailable Osmar Chicas MD Unavailable [phone] Encounter Details Date Type Department Care Team (Late st Contact Info) Description 12/01/2022 Scanned Document [facility] Department of Internal Medicine [place] [address] [place] [address] Diana Martinez PA [address] [place] [address] Social History Tobacco Use Types [...] on filedocumented in this encounter Care Teams X Ray Equipment Mechanic Relationship Specialty Start Date End Date Diana Martinez PA [address] [place] [address] PCP - General 01/03/22 Carl Goodman MD [address] [address] Surgery, Orthopedic 01/03/22 Osmar Chicas MD [address] [place] [address] Cardiovascular Disease 01/03/22 documented as of this encounter
--- OUTSIDE RECORDS SUMMARY | 2024-12-19 14:40 | XMS_ITS | Encounter Summary ---
Author Organization [facility] Address [address] [place] [address] Care Team Providers Care Shake Loader Name Role Phone Diana Martinez Primary Care Provider + [phone] Carl Goodman MD Unavailable Osmar Chicas MD Unavailable [phone] Encounter Details Date Type Department Care Team (Late st Contact Info) Description 05/28/2023 Scanned Document [facility] Department of Internal Medicine [place] [address] [place] [address] Diana Martinez PA [address] [place] [address] Social History Tobacco Use Types Packs/Day Years [...] on filedocumented in this encounter Care Teams Shake Loader Relationship Specialty Start Date End Date Diana Martinez PA [address] [place] [phone] PCP - General 01/03/22 Carl Goodman MD [address] [address] Surgery, Orthopedic 01/03/22 Osmar Chicas MD [address] [place] [address] Cardiovascular Disease 01/03/22 documented as of this encounter
--- OUTSIDE RECORDS SUMMARY | 2024-12-19 14:40 | XMS_ITS ---
Author Organization [facility] Address [address] [place] [address] Care Team Providers Care Microeconomics Professor Name Role Phone Floyd Romero Primary Care Provider Aleisha Holguin Unavailable [phone] REASON FOR VISIT Mix Encounters Encounter Location Date Provider Diagnosis [facility] [address] [place] [address] 07/13/2024 Aleisha Mahan Plan Of Treatment No Information Progress Notes * Sindy BELLAOB:[birth year] (59 yo F)Acc No.[id number]:07/13/2024 Patient:?Nina Bella :1965???Age:59 Y???Sex:Female Address:[address] [facility] [place] [address] * true * Date:? Generated for Jefferyi eamon/Ximena/eTransmitting on:?12/19/2024 02:39 PM EDT
--- OUTSIDE RECORDS SUMMARY | 2024-12-19 14:40 | XMS_ITS | Encounter Summary ---
Author Organization [facility] Address [address] [place] [address] Care Team Providers Care Medical Sonographer Name Role Phone Diana Martinez Primary Care Provider + [phone] Carl Goodman MD Unavailable Osmar Chicas MD Unavailable [phone] Encounter Details Date Type Department Care Team (Late st Contact Info) Description 09/10/2023 Scanned Document [facility] Department of Internal Medicine [place] [address] [place] [address] Diana Martinez PA [address] [place] [address] Social History Tobacco Use Types Packs/Day Years [...] filedocumented in this encounter Care Teams Medical Sonographer Relationship Specialty Start Date End Date Diana Martinez PA [address] [place] [phone] PCP - General 01/03/22 Carl Goodman MD [address] [address] Surgery, Orthopedic 01/03/22 Osmar Chicas MD [address] [place] [address] Cardiovascular Disease 01/03/22 documented as of this encounter
--- OUTSIDE RECORDS SUMMARY | 2024-12-19 14:40 | XMS_ITS | Encounter Summary ---
Author Organization [facility] Address [address] [place] [address] Care Team Providers Care Emulsification Operator Name Role Phone Diana Martinez Primary Care Provider +1- [phone] Carl Goodman MD Unavailable Osmar Chicas MD Unavailable [phone] Encounter Details Date Type Department Care Team (Late st Contact Info) Description 12/18/2022 Scanned Document [facility] Department of Internal Medicine [place] [address] [place] [address] Diana Martinez PA [address] [place] [address] Social History Tobacco Use Types [...] on filedocumented in this encounter Care Teams Emulsification Operator Relationship Specialty Start Date End Date Diana Martinez PA [address] [place] [address] PCP - General 01/03/22 Carl Goodman MD [address] [address] Surgery, Orthopedic 01/03/22 Osmar Chicas MD [address] [place] [address] Cardiovascular Disease 01/03/22 documented as of this encounter
--- OUTSIDE RECORDS SUMMARY | 2024-12-19 14:40 | XMS_ITS | Encounter Summary ---
Author Organization [facility] Address [address] [place] [address] Care Team Providers Care Government Program Manager Name Role Phone Diana Martinez Primary Care Provider + [phone] Carl Goodman MD Unavailable Osmar Chicas MD Unavailable [phone] Encounter Details Date Type Department Care Team (Late st Contact Info) Description 08/25/2023 Scanned Document [facility] Department of Internal Medicine [place] [address] [place] [address] Diana Martinez PA [address] [place] [address] Social History Tobacco Use Types Packs/Day Years [...] on filedocumented in this encounter Care Teams Government Program Manager Relationship Specialty Start Date End Date Diana Martinez PA [address] [place] [phone] PCP - General 01/03/22 Carl Goodman MD [address] [address] Surgery, Orthopedic 01/03/22 Osmar Chicas MD [address] [place] [address] Cardiovascular Disease 01/03/22 documented as of this encounter
== END 2024-12-19 13:49 | disposition home or self-care (01) ==
LOC: HO.HOP 12:46
PROVIDERS: PCP Internal Medicine; Visit Provider Clinical Nurse Specialist Psychiatric/Mental Health
DX: F33.1 Major depressive disorder, recurrent, moderate (principal); F41.1 Generalized anxiety disorder; F43.12 Post-traumatic stress disorder, chronic
CPT/HCPCS: 99214

== ENCOUNTER → 2024-12-19 12:46 | Outpatient (BNVA) | payer MEDICARE, MEDICAID, SELFPAY | PROVIDERS: PCP Internal Medicine; Visit Provider Clinical Nurse Specialist Psychiatric/Mental Health | DX: F33.1 Major depressive disorder, recurrent, moderate (principal); F41.1 Generalized anxiety disorder; F43.12 Post-traumatic stress disorder, chronic | CPT/HCPCS: 99212 ==

== ENCOUNTER 2025-02-02 13:05 | Outpatient (AMB) | payer MEDICARE, MEDICAID, SELFPAY ==
--- OUTSIDE RECORDS SUMMARY | 2025-02-02 13:07 | XMS_ITS | Clinical Summary ---
Author Organization [address] Address [address] [place] [address] [place] [address] Phone Care Team Providers Care Air Pumper Name Role Phone Consuelo Wrad MD Primary Care Provide r Allergies Active Allergy Reactions Criticality Noted Date [...] (BMI) of 36.0 to 36.9 in adult ([facility] V24, [facility] V28) 06/18/2024 Adenoma of colon 12/28/2023 Overview (06/18/2024): History of adenoma greater than 10 mm. Last colonoscopy 03/2021, follow-up 5 years Anxiety and depression 12/24/2023 Gastroesophageal reflux disease 12/24/2023 Low magnesium level 12/24/2023 Other hyperlipidemia 12/24/2023 Primary hypertension 12/24/2023 PTSD (post-traumatic stress disorder) 12/24/2023 Seizures ([facility] [place] [facility] V24, [facility] [place] [facility] V28) 12/24/2023 Resolved Problems Problem Noted Date Diagnosed Date Resolved Date Vitamin B12 deficiency 12/24/202308/01 Vitamin D deficiency 12/24/2023 024 Encounters Date Type Department Care Team Description 01/13/2025 1:30 PM EDT Treatment Pelvic Floor [address] [phone] Yessica Sanchez, PT Urinary incontinence, unspecified type (Primary Dx); Constipation, unspecified constipation type; Urgency of urination; Pelvic pain; Muscle spasm; Muscle weakness 12/09/2024 2:00 PM EDT Treatment Pelvic Floor [address] [phone] Yessica Sanchez, PT Urinary incontinence, unspecified type (Primary Dx); Constipation, unspecified constipation type; Urgency of urination; Pelvic pain; Muscle spasm; Muscle weakness 11/25/2024 11:00 AM EDT Treatment Pelvic Floor [address] [phone] Carla Sancheza, PT Urinary incontinence, unspecified type (Primary Dx); Constipation, unspecified constipation type; Urgency of urination; Pelvic pain; Muscle spasm; Muscle weakness 11/18/2024 2:00 PM EDT Treatment Pelvic Floor [address] [phone] LauraCarlaa, PT Urinary incontinence, unspecified type (Primary Dx); Constipation, unspecified constipation type; Urgency of urination; Pelvic pain; Muscle spasm; Muscle weakness 11/11/2024 11:00 AM EST Treatment Pelvic Floor [address] [phone] LauraCarlaa, PT Urinary incontinence, unspecified type (Primary Dx); Constipation, unspecified constipation type; Urgency of urination; Pelvic pain; Muscle spasm; Muscle weakness 11/04/2024 2:30 PM EST Treatment Pelvic Floor [address] [phone] Carla Sancheza, PT Urinary incontinence, unspecified type (Primary Dx); Constipation, unspecified constipation type; Urgency of urination; Pelvic pain; Muscle spasm; Muscle weakness from Last 3 Months Immunizations Name Administration [...] deficiency 12/24/2023 Vitamin D deficiency 12/24/2023 Epilepsy ([facility] V24[facility] V28) Stroke ([facility] V24, [facility] V28) Family History Medical History Relation Name Comments Hypertension Brother back issues Celiac disease Daughter Alicja Hypertension Father Johm Prostate cancer Father Johm HTN Pancreatic cancer [...] Ectopic Multiple Livin g Live Births 1 09 [birth year] Date Outcome GA Total Labor Labor/2nd/3rd Weight [...] Care Team (Late st Contact Info) Description 02/03/2025 2:00 PM EDT Treatment Pelvic Floor Rehabilitation - [address] [phone] Yessica Sanchez, PT [address] [address] 02/24/2025 1:00 PM EDT Treatment Pelvic Floor Rehabilitation - [address] [phone] Yessica Sanchez, PT [address] [phone] 03/21/2025 1:50 PM EDT Appointment Radiology Department - [address] [phone] Health Maintenance Due Date Last Done Comments [...] this topic Medical Devices Implanted Type Area Endocrinology Teacher Device Identifier Shelf Expiration Date Model / Serial / Lot Surgiflo Hemostatic Matrix [facility] [id number] Implanted:Qty : 2 on 08/09/2021 by Andrea Polanco DO Implants N/A: Spine Cervical [facility] [employer] 11/04/2022 [id number] / / [id number] Size 5 Standard Tapered Stem Cementless Implanted:Qty : 1 on 12/29/2022 by Clifton Esteban MD Joints Right: Hip [id number] 10/01/2027 / / [id number] +4 Femoral Head Implanted:Qty : 1 on 12/29/2022 by Clifton Esteban MD Joints Right: Hip [id number] 07/04/2026 / / [id number] Description:Renata 36mm +4mm Spacer Vikos 14.5x11.5x8mm 7d Stry-Spin [id number] - [id number] Implanted:Qty : 1 on 08/09/2021 by Andrea Polanco DO N/A: Spine Cervical [employer] 06/12/2025 2504-214 08L / [id number] / Spacer Vikos 14.5x11.5x7mm 7d Stry-Spin [id number] 90972 - [id number] Implanted:Qty : 1 on 08/09/2021 by Andrea Polanco DO N/A: Spine Cervical [employer] 10/24/2025 2504-214 07L / [id number] / Spacer Vikos 14.5x11.5x7mm 7d Stry-Spin [id number] 52778 - [id number] Implanted:Qty : 1 on 08/09/2021 by Andrea Polanco DO N/A: Spine Cervical [employer] 08/02/2025 2504-214 07L / [id number] / Plate [place] 57mm 3 Level Bone Stry-K2m [id number] Implanted:Qty : 1 on 08/09/2021 by Andrea Polanco DO N/A: Spine Cervical [employer] [id number] 57V / / Screw [place] Self-Start 4x16mm Stry-K2m [id number]- [id number] Implanted:Qty : 7 on 08/09/2021 by Andrea Polanco DO N/A: Spine Cervical [employer] [id number] 16DA / / Screw [place] 16mm 4.5mm Self St Stry-Howm [id number]- [id number] Implanted:Qty : 1 on 08/09/2021 by Andrea Polanco DO N/A: Spine Cervical [employer] 8801-045 16DA / / Screw Marie 6.5x20mm Crng-Manu [id number] 6 Implanted:Qty : 1 on 12/29/2022 by Clifton Esteban MD Right: Hip [employer] [id number] 10/02/2027 321.02 0 [id number] Marie Liner Ecima Neutral Offset Implanted:Qty : 1 on 12/29/2022 by Clifton Esteban MD Right: Hip [employer] 10/29/2027 322.03.6 36 [id number] Hip Cup Marie Tpr 52mm Sz3 Crng-Manu [id number] 6960 Implanted:Qty : 1 on 12/29/2022 by Clifton Esteban MD Right: Hip [employer] [id number] 10/13/2027 321.03 .3 52 [id number] Screw Marie 6.5x25mm Crng-Manu 321.025-58164 7 Implanted:Qty : 1 on 12/29/2022 by Clifton Esteban MD Right: Hip [employer] [id number] 09/02/2027 321.02 5 202 Procedures Procedure Name Priority Date/Time Associated Diagnosis [...] mmol/L LAB CHEMISTRY METHOD 09/15/2024 12:40 PM [facility] Potassium 4.1 3.5 - 5.5 mmol/L LAB CHEMISTRY METHOD 09/15/2024 12:40 PM [facility] Chloride 102 96 - 110 mmol/L LAB CHEMISTRY METHOD 09/15/2024 12:40 PM [facility] CO2 27 21 - 32 mmol/L LAB CHEMISTRY METHOD 09/15/2024 12:40 PM [facility] Anion Gap 7 3 - 11 LAB CHEMISTRY METHOD 09/15/2024 12:40 PM [facility] Glucose 91 70 - 100 mg/dL LAB CHEMISTRY METHOD 09/15/2024 12:40 PM [facility] BUN 14 5 - 25 mg/dL LAB CHEMISTRY METHOD 09/15/2024 12:40 PM [facility] Creatinine 0.90 0.50 - 1.10 mg/dL LAB CHEMISTRY METHOD 09/15/2024 12:40 PM [facility] eGFR 74 >=60 mL/min/1. 73m2 LAB CHEMISTRY METHOD 09/15/2024 12:40 PM [facility] Comment:Calculation based on the??Chronic Kidney Disease Epidemiology Collaboration (CKD-EPI) equation refit??without adjustment for race. BUN/Creatinine Ratio 15.6 LAB CHEMISTRY METHOD 09/15/2024 12:40 PM [facility] Calcium 9.9 8.5 - 10.5 mg/dL LAB CHEMISTRY METHOD 09/15/2024 12:40 PM [facility] Blood Venous blood specimen / Unknown Venipuncture / Unknown 09/15/2024 9:58 AM EST 09/15/2024 10:35 AM EST us Jaycee RICARDO LAB BLOOD ORDERABLES Final Resu lt [facility] [address] [place] [address], [place] [phone] * HIV 1,2 antibody, p24 antigen with reflex to differentiation (08/12/2024 7:54 AM EST) [facility] HIV Combo AB/AG Negative Negative LAB CHEMISTRY METHOD 08/12/2024 10:52 AM [facility] Blood Venous blood specimen / Unknown Venipuncture / Unknown 08/12/2024 7:54 AM EST 08/12/2024 7:54 AM EST [facility] - 08/12/2024 10:52 AM EST This [...] MD LAB BLOOD ORDERABLES F inal Result [facility] [address] [place] [address], [place] [phone] * Lipid panel with reflex to direct LDL (08/12/2024 7:54 AM EST) [facility] Cholesterol 175 0 - 200 mg/dL LAB CHEMISTRY METHOD 08/12/2024 11:01 AM [facility] Triglycerides 90 0 - 150 mg/dL LAB CHEMISTRY METHOD 08/12/2024 11:01 AM [facility] HDL 94 >=40 mg/dL LAB CHEMISTRY METHOD 08/12/2024 11:01 AM [facility] LDL Calculated 63 0 - 100 mg/dL LAB CHEMISTRY METHOD 08/12/2024 11:01 AM [facility] VLDL Cholesterol Jai 18 mg/dL LAB CHEMISTRY METHOD 08/12/2024 11:01 AM EST [facility] Non HDL Chol. (LDL+VLDL) 81 <145 mg/dL LAB CHEMISTRY METHOD 08/12/2024 11:01 AM EST [facility] Chol/HDL Ratio 1.9 0.0 - 4.4 LAB CHEMISTRY METHOD 08/12/2024 11:01 AM EST [facility] Blood Venous blood specimen / Unknown Venipuncture / Unknown 08/12/2024 7:54 AM EST 08/12/2024 7:54 AM EST us Floyd Romero MD LAB BLOOD ORDERABLES F inal Result [facility] [address] [place] [address], [place] [phone] * SCREENING MAMMOGRAPHY BI 2-VIEW BREAST INC [...] Negative Suyapa Parveen RICARDO IMG XR PROCEDURES Final Result * Hepatitis C Screening (12/24/2023) Hepatitis C Screening abstracted Historical Provider HEALTH MAINTENANCE Final Result * Colonoscopy (03/18/2021) Colonoscopy no interpretation , abstracted Anatomical Region Laterality Modality Other Historical Provider HEALTH MAINTENANCE Final Result from Last 3 Months or Most Recently Relevant to Health Maintenance Insurance MEDICAID - [place] [employer] MEDICARE Care Teams Air Pumper Relationship Specialty Start Date End Date Consuelo Ward MD [address] [place] [phone] PCP - General Internal Medicine 01/13/25
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
== END 2025-02-02 13:44 | disposition home or self-care (01) ==
LOC: HO.HOP 13:05
PROVIDERS: PCP Internal Medicine; Visit Provider Clinical Nurse Specialist Psychiatric/Mental Health
DX: F33.1 Major depressive disorder, recurrent, moderate (principal); F41.1 Generalized anxiety disorder; F43.12 Post-traumatic stress disorder, chronic
CPT/HCPCS: 99214

== ENCOUNTER → 2025-02-02 13:05 | Outpatient (BNVA) | payer MEDICARE, MEDICAID, SELFPAY | PROVIDERS: PCP Internal Medicine; Visit Provider Clinical Nurse Specialist Psychiatric/Mental Health | DX: F33.1 Major depressive disorder, recurrent, moderate (principal); F41.1 Generalized anxiety disorder; F43.12 Post-traumatic stress disorder, chronic; Z71.89 Other specified counseling | CPT/HCPCS: 99212 ==

== ENCOUNTER 2025-03-20 13:03 | Outpatient (AMB) | payer MEDICARE, MEDICAID, SELFPAY ==
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
[2025-03-20 13:22] VITALS: BP 120/90; PULSE 98; O2SAT 99; BMI 34.2
--- OUTSIDE RECORDS SUMMARY | 2025-03-20 14:03 | XMS_ITS | Patient Health Record ---
Author Organization [facility] Address [address] [place] [address] Care Team Providers Care Oil Extractor Name Role Phone Floyd Romero Primary Care Provider Aleisha Holguin Unavailable [phone] Allergies Allergen (clinical drug ingredient) Drug/Non Drug Allergy documented on EMR Reaction Allergy Type Onset Date Status Vibramycin Unknown Drug Allergy Active Latex Latex Unknown Allergy Active morphine Morphine Unknown Drug Allergy Active Reason For Referral No Information Medications Medication SIG (Take, Route, Frequency, Duration) Notes Start Date End Date Status lamoTRIgine 150 MG Oral; Duration: 30 Days Active Rosuvastatin Calcium 10 MG Oral; Duration: 90 Days Active risperiDONE 0.25 MG 1 tablet Orally Once a day; Duration: 30 days Active Pantoprazole Sodium Active Baby Aspirin Active DULoxetine HCl 60 MG Oral; Duration: 30 Days Active Valsartan 40 MG Oral; Duration: 90 Days Active Social History Tobacco Use: [...] W/U Status Risk Notes 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 Problem Plantar fasciitis, bilateral (M72.2) Active confirmed Vital Signs Blood pressure diastolic 80 mm Hg 09/21/2024 Height 5ft6in in 09/21/2024 Blood pressure systolic 120 mm Hg 09/21/2024 Weight 190 lbs 09/21/2024 BMI 30.66 kg/m2 09/21/2024 Encounters Encounter Location Date Provider Diagnosis [facility] [address] [place] [address] 07/13/2024 Aleisha Mahan Pain in right foot M79.671 ; Plantar fibromatosis M72.2 and 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 [address] 07/13/2024 Aleishawillam Mahan Assessments Encounter Date Diagnosis (ICD Code) [...] Date Coverage End Date [employer] Medicare Adv-[id number] [address] [address] [place] [address] [id number] JonoNina trejo Self - patient is the insured Medical (General) History Medical History History ICD Code Arthritis Back,Hip,and Knee pain Depression Seizures High Blood Pressure Numbness Chicken pox Joint implants/screws Surgical History Surgery Date(Month/Year) hip replacement back fusions endoscopy 07/12/24 colonoscopy 07/08/24
--- OUTSIDE RECORDS SUMMARY | 2025-03-20 14:03 | XMS_ITS | Clinical Summary ---
Author Organization [address] Address [address] [place] [address] MARY[place] Calix [phone] Phone Care Team Providers Care Pool Nurse Name Role Phone Frank Berry MD Primary Care Provider Allergies Active Allergy [...] (one) time each day. 90 each 1 4 Active valsartan (DIOVAN) 40 mg tablet Take 1 tablet (40 mg total) by mouth 1 (one) time each day. 90 each 5 Active zolpidem (AMBIEN) 10 mg tablet Take 1 tablet (10 mg total) by mouth 1 (one) time each day. Max Daily Amount: 10 mg 0 Active valsartan (DIOVAN) 40 mg tablet Take 1 tablet (40 mg total) by mouth 1 (one) time each day. 90 each 1 4 02/25/20 Discontinu ed(Reorder ) Active Problems Problem Noted Date Diagnosed Date Routine general medical exam ination at a health care facility 03/15/2025 Lightheadedness 03/15/2025 Unsteadiness 03/15/2025 Right hip pain 03/15/2025 Class 1 obesity due to exces s calories with body mass index (BMI) of 33.0 to 33.9 in adult 03/15/2025 Chronic low back pain 03/15/2025 History of hip replacement 03/15/2025 Family history of ovarian cancer 03/15/2025 Family history of breast cancer 03/15/2025 Family history of pancreatic cancer 03/15/2025 Mild cognitive impairment 03/15/2025 History of non anemic vitamin B12 deficiency Class 2 severe obesity with serious comorbidity and body mass index (BMI) of 36.0 to 36.9 in adult ([facility] V24, [facility] V28) 06/18/2024 Adenoma of colon 12/28/2023 Overview (06/18/2024): History of adenoma greater than 10 mm. Last colonoscopy 03/2021, follow-up 5 years Anxiety and depression 12/24/2023 Gastroesophageal reflux disease 12/24/2023 Low magnesium level 12/24/2023 Other hyperlipidemia 12/24/2023 Primary hypertension 12/24/2023 PTSD (post-traumatic stress disorder) 12/24/2023 Seizures (CMS/[facility] V24, [facility] V28) 12/24/2023 Resolved Problems Problem Noted Date Diagnosed Date Resolved Date Vitamin B12 deficiency 12/24/202308/01 Vitamin D deficiency 12/24/2023 024 Encounters Date Type Department Care Team Description 03/17/2025 Telephone Adult [address] [phone] Floyd Romero MD 03/15/2025 3:09 PM EDT - 03/15/2025 11:59 PM EDT Hospital Encounter [address] [phone] Annual wellness visit; Routine general medical examination at a health care facility; Right hip pain Discharge Disposition: Home or Self Care 03/15/2025 3:09 PM EDT - 03/15/2025 11:59 PM EDT Hospital Encounter [address] [phone] Annual wellness visit; Routine general medical examination at a health care facility; Chronic low back pain, unspecified back pain laterality, unspecified whether sciatica present Discharge Disposition: Home or Self Care 03/15/2025 2:00 PM EDT Office Visit [address] [phone] Frank Berry MD Annual wellness visit (Primary Dx); Routine general medical examination at a health care facility; Lightheadedness; Unsteadiness; Right hip pain; Class 1 obesity due to excess calories with body mass index (BMI) of 33.0 to 33.9 in adult, unspecified whether serious comorbidity present; History of hip replacement, unspecified laterality; Chronic low back pain, unspecified back pain laterality, unspecified whether sciatica present; Family history of ovarian cancer; Family history of breast cancer; Family history of pancreatic cancer; Seizures (CMS/HCC V24, [facility] V28); Mild cognitive impairment; Other hyperlipidemia; Anxiety and depression 01/13/2025 1:30 PM EDT Treatment Pelvic Floor Rehabilitation - [address] [phone] Yessica Sanchez PT Urinary incontinence, unspecified type (Primary Dx); Constipation, unspecified constipation type; Urgency of urination; Pelvic pain; Muscle spasm; Muscle weakness from Last 3 Months Immunizations Name Administration Dates Next Due Influenza trivalent, MDCK, 0 .5mL, preservative free (Flucelvax) 6mo and older 08/01/2024 Moderna SARS-CoV-2 COVID-19, mRNA, LNP-S, preservative free 07/08/2021 Pfizer SARS-CoV-2 COVID-19, mRNA, LNP-S, preservative free 10/19/2020,09/28/2020 Pneumococcal conjugate 20 va lent (Prevnar 20, PCV 20) 2mo and older 03/15/2025 Tdap Tetanus diptheria acell ular pertussis (Boostrix; Adacel) 7yo and older 03/11/2018 Surgical History Surgery Date Site/Laterality Comments SHOULDER SURGERY 2018 Right PROCEDURE: HISTORICAL SHOULDER SURGERY; COMMENT: ? [...] deficiency 12/24/2023 Vitamin D deficiency 12/24/2023 Epilepsy (CMS/HCC V24, CMS/[facility] V28) Stroke (CMS/HCC V24, CMS/HCC V28) Family History Medical History Relation Name [...] you may not have stable housing? No 03/14/2025 Food Access & Nutrition Answer Date Rec orded Do you have access to a vari ety of food including fruits and vegetables? Yes 03/14/2025 Access to Healthcare Answer Date Record ed Within the last 3 months, ho frandy many times did you visit the emergency department for your medical care? 0 03/14/2025 Health Literacy Answer Date Recorded How often do you need to hav e someone help you when you read instructions, pamphlets, or other written material from your doctor or pharmacy? Sometimes 03/14/2025 Caregiver: How often do you need to have someone help you when you read instructions, pamphlets, or other written material from your doctor or pharmacy? Not on file 03/14/2025 Financial Risk Answer Date Recorded How hard is it for you to pa y for the very basics like food, housing, medical care, and air conditioning / heating? Not very hard 03/14/2025 Transportation Answer Date Recorded Has the lack of transportati on kept you from meetings, work, or from getting things needed for daily living? No Has the lack of transportati on kept you from medical appointments or from getting medications? No 03/14/2025 Social Isolation Answer Date Recorded How often do you feel lonely or isolated from th ose around you? Never 03/14/2025 Food Risk Answer Date Recorded Within the past 12 months we worried whether our food would run out before we got money to buy more. Never true 03/14/2025 Within the past 12 months th e food we bought just didn't last and we didn't have money to get more. Never true 03/14/2025 Dependent Care Answer Date Recorded Do you need help finding or paying for care for your loved ones. For example, childcare aide or elderly care for an older adult? No 03/14/2025 Education Answer Date Recorded Do you think completing more education or training, like finishing a GED, going to college, or learning a trade, would be helpful for you? No 03/14/2025 Employment and Income Answer Date Recor ded During the last four weeks, have you been actively looking for work? No 03/14/2025 Living Situation Answer Date Recorded What is your living situation? 0 03/14/2025 Comments No Sex and Gender Information Value [...] Sign Reading Time Taken Comments Blood Pressure 120/72 03/15/2025 2:06 PM EDT Pulse 82 03/15/2025 2:06 PM EDT Temperature 36.6 C (97.8 F) 03/15/2025 2:06 PM EDT Respiratory Rate 16 08/01/2024 1:03 PM EST Oxygen Saturation 99% 08/01/2024 1:03 PM EST Inhaled Oxygen Concentration - - Weight 94.8 kg (209 lb) 03/15/2025 2:06 PM EDT Height 167.6 cm (5' 6 ) 03/15/2025 2:06 PM EDT Body Mass Index 33.73 03/15/2025 2:06 PM EDT Plan of Treatment Health Maintenance Due Date Last Done Comments RSV Immunization Adult Patients (1 - Risk 60-74 years 1-dose series) 2025 Influenza Vaccine (#1) 2025 , 05/27/2023, 07/08/2021, Additional history exists COVID-19 Vaccine ( season) 2025 07/08/2021, 10/19/2020, 09/28/2020 Postponed from 05/08/2024 (Patient Refused) Cervical Cancer Screening: Pap Smear 09/07/2025 Postponed from 1986 (Patient Refused) Zoster Vaccines (2 of 2) 09/07/2025 07/08/2021 Pos tponed from 09/02/2021 (Patient Refused) Breast Cancer Screening 03/14/2026 03/14/2024, 03/14 Depression Screening 03/14/2026 03/14/2025 Social Influencers of Health Screening 03/14/2026 03/14/2025 Medicare Annual Wellness Visit 03/15/2026 03/15/2025 Hypertension/CHF/CAD Annual BMP Blood Test 03/16/2026 03/16/2025, 09/15/2024, 08/12/2024, Additional history exists Colorectal Cancer Screening: Colonoscopy 03/18/2026 03/18/2021, 11/03/1999 DTaP,Tdap,and Td Vaccines (3 - Td or Tdap) 03/11/2028 03/11/2018, 11/08/2012 Cholesterol Screening (Lipid Panel) 03/16/2030 03/16/2025, 08/12/2024, 03/09/2024, Additional history exists Hepatitis C Screening Completed 12/24/2023 HIV Screening Completed 08/12/2024 Pneumococcal Vaccine: 50+ Years Completed 03/15/2025 HIB Vaccines Aged Out No longer eligi [...] this topic Medical Devices Implanted Type Area Beam Dyer Recessed Vat Device Identifier Shelf Expiration Date Model / Serial / Lot Surgiflo Hemostatic Matrix [id number] Implanted:Qty : 2 on 08/09/2021 by Andrea Polanco DO Implants N/A: Spine Cervical [employer] 11/04/2022 2991 / / [id number] Size 5 Standard Tapered Stem Cementless Implanted:Qty : 1 on 12/29/2022 by Clifton Esteban MD Joints Right: Hip [id number] 10/01/2027 / / [id number] +4 Femoral Head Implanted:Qty : 1 on 12/29/2022 by Clifton Esteban MD Joints Right: Hip [id number] 07/04/2026 / / [id number] Description:Renata 36mm +4mm Spacer Vikos 14.5x11.5x8mm 7d Stry-Spin [id number]-[id number] 19210 - [id number] Implanted:Qty : 1 on 08/09/2021 by Andrea Polanco DO N/A: Spine Cervical [employer] 06/12/2025 2504-214 08L / [id number] / Spacer Vikos 14.5x11.5x7mm 7d Stry-Spin [id number]-2 31498 - [id number] Implanted:Qty : 1 on 08/09/2021 by Andrea Polanco DO N/A: Spine Cervical [employer] 10/24/2025 2504-214 07L / [id number] / Spacer Vikos 14.5x11.5x7mm 7d Stry-Spin 2506-50067v-2 40986 - [id number] Implanted:Qty : 1 on 08/09/2021 by Andrea Polanco DO N/A: Spine Cervical [employer] 08/02/2025 2504-214 07L / [id number] / Plate [place] 57mm 3 Level Bone Stry-K2m [id number] Implanted:Qty : 1 on 08/09/2021 by Andrea Polanco DO N/A: Spine Cervical [employer] [id number] 57V / / Screw [place] Self-Start 4x16mm Stry-K2m [id number]- [id number] Implanted:Qty : 7 on 08/09/2021 by Andrea Polanco, N/A: Spine Cervical [employer] 8801-040 16DA / / Screw Stonefort 16mm 4.5mm Self St Stry-Howm [id number]- [id number] Implanted:Qty : 1 on 08/09/2021 by Andrea Polanco, N/A: Spine Cervical [employer] 8801-045 16DA / / Screw Marie 6.5x20mm Crng-Manu [id number] 6 Implanted:Qty : 1 on 12/29/2022 by Clifton Esteban MD Right: Hip [employer] [id number] 10/02/2027 321.02 0 [id number] Marie Liner Ecima Neutral Offset Implanted:Qty : 1 on 12/29/2022 by Clifton Esteban MD Right: Hip [employer] 10/29/2027 322.03.6 36 / / [id number] Hip Cup Marie Tpr 52mm Sz3 Crng-Manu [id number] 6960 Implanted:Qty : 1 on 12/29/2022 by Clifton Esteban MD Right: Hip [employer] [id number] 10/13/2027 321.03 .3 52 / / [id number] Screw Marie 6.5x25mm Crng-Manu 321.025-22875 7 Implanted:Qty : 1 on 12/29/2022 by Clifton Esteban MD Right: Hip [employer] [id number] 09/02/2027 321.02 5 / [id number] Procedures Procedure Name Priority Date/Time Associated Diagnosis Comments ALKALINE PHOSPHATASE Routine 03/16/2025 1:11 PM EDT Elevated alkaline phosphatase level VITAMIN D 25 HYDROXY Routine 03/16/2025 1:11 PM EDT Elevated alkaline phosphatase level Vitamin D deficiency CBC WITH AUTO DIFFERENTIAL Routine 03/16/2025 8:24 AM EDT Annual wellness visit Routine general medical examination at a health care facility CBC AND DIFFERENTIAL Routine 03/16/2025 8:24 AM EDT Annual wellness visit Routine general medical examination at a health care facility COMPREHENSIVE METABOLIC PANEL Routine 03/16/2025 8:24 AM EDT Annual wellness visit Routine general medical examination at a health care facility THYROID STIMULATING HORMONE WITH REFLEX TO FREE T4 AND FREE T3 Routine 03/16/2025 8:24 AM EDT Annual wellness visit Routine general medical examination at a health care facility LIPID PANEL WITH REFLEX TO DIRECT LDL Routine 03/16/2025 8:24 AM EDT Annual wellness visit Routine general medical examination at a health care facility MAGNESIUM Routine 03/16/2025 8:24 AM EDT Annual wellness visit Routine general medical examination at a health care facility Lightheadedness PHOSPHORUS Routine 03/16/2025 8:24 AM EDT Annual wellness visit Routine general medical examination at a health care facility Lightheadedness VITAMIN B12 Routine 03/16/2025 8:24 AM EDT Annual wellness visit Routine general medical examination at a health care facility Lightheadedness Unsteadiness XR HIP 2-3 VIEWS RIGHT Routine 3:35 PM EDT Annual wellness visit Routine general medical examination at a health care facility Right hip pain XR LUMBAR SPINE 4+ VIEWS Routine 03/15/2025 3:34 PM EDT Annual wellness visit Routine general medical examination at a health care facility Chronic low back pain, unspecified back pain laterality, unspecified whether sciatica present HIV 1, 2 ANTIBODY, P24 ANTIGEN WITH REFLEX TO DIFFERENTIATION Routine 08/12/2024 7:54 AM EST Encounter for screening for HIV SCREENING MAMMOGRAPHY BI 2-VIEW BREAST INC CAD Routine 03/14/2024 1:25 PM EDT Encounter for screening mammogram for malignant neoplasm of breast HM HEPATITIS C SCREENING Routine 12/24/2023 HM COLONOSCOPY Routine 03/18/2021 from Last 3 Months or Most Recently Relevant to Health Maintenance Results * Vitamin D 25 hydroxy (03/16/2025 1:11 PM EDT) Pathologist [facility] Vit D, 25-Hydroxy 33.6 30.0 - 80.0 ng/mL LAB CHEMISTRY METHOD 03/16/2025 6:31 PM EDT [facility] Blood Venous blood specimen / Unknown Venipuncture / Unknown 03/16/2025 1:11 PM EDT 03/16/2025 1:11 PM EDT Frank Berry MD LAB BLOOD ORDERABLES Final Result [facility] [address] [place] [address], [place] [phone] * (ABNORMAL) Alkaline phosphatase (03/16/2025 1:11 PM EDT) [facility] Alkaline Phosphatase 135(H) 42 - 121 unit/L LAB CHEMISTRY METHOD 03/16/2025 5:42 PM EDT [facility] Blood Venous blood specimen / Unknown Venipuncture / Unknown 03/16/2025 1:11 PM EDT 03/16/2025 1:11 PM EDT Frank Berry MD LAB BLOOD ORDERABLES Final Result [facility] [address] [place] [address], [place] [phone] * Thyroid stimulating hormone with reflex to free t4 and free t3 (03/16/2025 8:24 AM EDT) [facility] TSH 1.35 0.40 - 4.00 mcIU/mL LAB CHEMISTRY METHOD 03/16/2025 12:32 PM EDT [facility] Blood Venous blood specimen / Unknown Venipuncture / Unknown 03/16/2025 8:24 AM EDT 03/16/2025 8:24 AM EDT Frank Berry MD LAB BLOOD ORDERABLES Final Result [facility] [address] [place] [address], [place] [phone] * Lipid panel with reflex to direct LDL (03/16/2025 8:24 AM EDT) Cholesterol 194 0 - 200 mg/dL LAB CHEMISTRY METHOD 03/16/2025 12:05 PM EDT [facility] Triglycerides 114 0 - 150 mg/dL LAB CHEMISTRY METHOD [facility] HDL 98 >=40 mg/dL LAB CHEMISTRY METHOD 03/16/2025 12:05 PM EDT [facility] LDL Calculated 73 0 - 100 mg/dL LAB CHEMISTRY METHOD 03/16/2025 12:05 PM EDT [facility] VLDL Cholesterol Jai 22.8 mg/dL LAB CHEMISTRY METHOD 03/16/2025 12:05 PM T [facility] Non HDL Chol. (LDL+VLDL) 96 <145 mg/dL LAB CHEMISTRY METHOD 03/16/2025 12:05 PM EDT [facility] Chol/HDL Ratio 2.0 0.0 - 4.4 LAB CHEMISTRY METHOD 03/16/2025 12:05 PM T [facility] Blood Venous blood specimen / Unknown Venipuncture / Unknown 03/16/2025 8:24 AM EDT 03/16/2025 8:24 AM EDT Frank Berry MD LAB BLOOD ORDERABLES Final Result [facility] [address] [place] [address], [place] [phone] * (ABNORMAL) CBC auto differential (03/16/2025 8:24 AM EDT) [facility] WBC 7.3 4.8 - 10.8 K/mcL LAB HEMETOLOGY METHOD 03/16[facility]2025 [facility] RBC 4.70 3.80 - 4.80 M/mcL LAB HEMETOLOGY METHOD 03/16/2025 10:[facility] Hemoglobin 13.2 11.5 - 16.0 g/dL LAB HEMETOLOGY METHOD 03/16/2025 10:[address] [facility] Hematocrit 41.5 35.0 - 47.0 % LAB HEMETOLOGY METHOD 03/16/2025 10:[address] [facility] MCV 89.2 79.0 - 98.0 FL LAB HEMETOLOGY METHOD 03/16/2025 10:[address] [facility] MCH 28.4 27.0 - 32.0 pcg LAB HEMETOLOGY METHOD 03/16/2025 10:[address] [facility] MCHC 31.8(L) 32.0 - 37.0 g/dL LAB HEMETOLOGY METHOD 03/16/2025 10:[address] [facility] RDW 12.6 11.0 - 15.0 % LAB HEMETOLOGY METHOD 03/16/2025 10:[address] [facility] Platelets 219 130 - 400 K/mcL LAB HEMETOLOGY METHOD 03/16/2025 10:[address] [facility] MPV 9.0 7.0 - 11.0 FL LAB HEMETOLOGY METHOD 03/16/2025 10:[address] [facility] NRBC 0.0 <1.0 % LAB HEMETOLOGY METHOD 03/16/2025 10:[address] [facility] NRBC Absolute 0.00 <0.10 K/mcL LAB HEMETOLOGY METHOD 03/16/2025 10:37 AM T [facility] Neutrophils Relative 59.6 % LAB HEMETOLOGY METHOD 03/16/2025 10:[address] [facility] Lymphocytes Relative 28.7 % LAB HEMETOLOGY METHOD 03/16/2025 10:[address] [facility] Monocytes Relative 9.1 % LAB HEMETOLOGY METHOD 03/16/2025 10:[address] [facility] Eosinophils Relative 1.8 % LAB HEMETOLOGY METHOD 03/16/2025 10:[address] [facility] Basophils Relative 0.5 % LAB HEMETOLOGY METHOD 03/16/2025 10:[address] [facility] Immature Granulocytes Relative 0.3 % LAB HEMETOLOGY METHOD 03/16/2025 10:[address] [facility] Neutrophils Absolute 4.37 1.50 - 7.00 K/mcL LAB HEMETOLOGY METHOD 03/16/2025 10:[address] [facility] Lymphocytes Absolute 2.11 1.00 - 5.00 K/mcL LAB HEMETOLOGY METHOD 03/16/2025 10:[address] [facility] Monocytes Absolute 0.67 0.20 - 1.00 K/mcL LAB HEMETOLOGY METHOD 03/16/2025 10:[address] [facility] Eosinophils Absolute 0.13 0.00 - 0.50 K/mcL LAB HEMETOLOGY METHOD 03/16/2025 10:[address] [facility] Basophils Absolute 0.04 0.00 - 0.20 K/mcL LAB HEMETOLOGY METHOD 03/16/2025 10:[address] [facility] Immature Granulocytes Absolute 0.02 0.00 - 0.03 K/mcL LAB HEMETOLOGY METHOD 03/16/2025 10:37 AM EDT [facility] Blood Venous blood specimen / Unknown Venipuncture / Unknown 03/16/2025 8:24 AM EDT 03/16/2025 8:24 AM EDT us Frank Berry MD LAB BLOOD ORDERABLES Final Result Performing Organization Address City/[facility]/ZIP Co de Phone Number [facility] [address] [place] [address], [place] [phone] * Phosphorus (03/16/2025 8:24 AM EDT) Phosphorus 3.9 2.5 - 4.5 mg/dL LAB CHEMISTRY METHOD 03/16/2025 12:03 PM EDT [facility] Blood Venous blood specimen / Unknown Venipuncture / Unknown 03/16/2025 8:24 AM EDT 03/16/2025 8:24 AM EDT us Frank Berry MD LAB BLOOD ORDERABLES Final Result Performing Organization Address City/[facility]/ZIP Co de Phone Number [facility] [address] [place] [address], [place] [phone] * Magnesium (03/16/2025 8:24 AM EDT) Magnesium 2.6 1.9 - 2.6 mg/dL LAB CHEMISTRY METHOD 03/16/2025 11:32 AM EDT [facility] Blood Venous blood specimen / Unknown Venipuncture / Unknown 03/16/2025 8:24 AM EDT 03/16/2025 8:24 AM EDT us Frank Berry MD LAB BLOOD ORDERABLES Final Result [facility] [address] [place] [address], [place] [phone] * Vitamin B12 (03/16/2025 8:24 AM EDT) Pathologist [facility] Vitamin B-12 884 250 - 900 pcg/mL LAB CHEMISTRY METHOD 03/16/2025 12:[address] [facility] Blood Venous blood specimen / Unknown Venipuncture / Unknown 03/16/2025 8:24 AM EDT 03/16/2025 8:24 AM EDT us Frank Berry MD LAB BLOOD ORDERABLES Final Result [facility] [address] [place] [address], [place] [phone] * (ABNORMAL) Comprehensive metabolic panel (03/16/2025 8:24 AM EDT) [facility] Sodium 141 133 - 145 mmol/L LAB CHEMISTRY METHOD 03/16/2025 12:[address] [facility] Potassium 3.9 3.5 - 5.5 mmol/L LAB CHEMISTRY METHOD 03/16/2025 12:[address] [facility] Chloride 106 96 - 110 mmol/L LAB CHEMISTRY METHOD 03/16/2025 12:[address] [facility] CO2 30 21 - 32 mmol/L LAB CHEMISTRY METHOD 03/16/2025 12:[address] [facility] Anion Gap 5 3 - 11 LAB CHEMISTRY METHOD 03/16/2025 12:[address] [facility] Glucose 95 70 - 100 mg/dL LAB CHEMISTRY METHOD 03/16/2025 12:[address] [facility] BUN 12 5 - 25 mg/dL LAB CHEMISTRY METHOD 03/16/2025 12:[address] [facility] Creatinine 0.90 0.50 - 1.10 mg/dL LAB CHEMISTRY METHOD 03/16/2025 12:[address] [facility] eGFR 74 >=60 mL/min/1. 73m2 LAB CHEMISTRY METHOD 03/16/2025 12:[address] [facility] Comment:Calculation based on the Chronic Kidney Disease Epidemiology Collaboration (CKD-EPI) equation refit without adjustment for race. BUN/Creatinine Ratio 13.3 LAB CHEMISTRY METHOD 03/16/2025 12:[address] [facility] Calcium 9.5 8.5 - 10.5 mg/dL LAB CHEMISTRY METHOD 03/16/2025 12:[address] [facility] AST (SGOT) 18 10 - 42 unit/L LAB CHEMISTRY METHOD 03/16/2025 12:[address] [facility] ALT (SGPT) 25 10 - 60 unit/L LAB CHEMISTRY METHOD 03/16/2025 12:[address] [facility] Alkaline Phosphatase 140(H) 42 - 121 unit/L LAB CHEMISTRY METHOD 03/16/2025 12:[address] [facility] Total Protein 7.2 6.0 - 8.0 g/dL LAB CHEMISTRY METHOD 03/16/2025 12:[address] [facility] Albumin 4.2 3.2 - 5.0 g/dL LAB CHEMISTRY METHOD 03/16/2025 12:[address] [facility] Total Bilirubin 0.4 0.0 - 1.4 mg/dL LAB CHEMISTRY METHOD 03/16/2025 12:[address] [facility] Blood Venous blood specimen / Unknown Venipuncture / Unknown 03/16/2025 8:24 AM EDT 03/16/2025 8:24 AM EDT us Frank Berry MD LAB BLOOD ORDERABLES Final Result [facility] [address] [place] [address], * XR Hip 2-3 Views Right (03/15/2025 3:35 PM EDT) Anatomical Region Laterality Modality Lower Extremities, Hip Right Radiograp hic Imaging 03/15/2025 4:09 PM EDT Impressions 03/15/2025 4:10 PM EDT Bilateral hip prostheses. Fusion hardware with titanium cages of the visualized lower lumbar spine. No acute findings. -------- FINAL REPORT -------- Dictated By: Yusra Gomes Dictated Date: 03/15/2025 16:09 ET Assigned Physician: Yusra Gomes Reviewed and Electronically Signed By: Yusra Gomes Signed Date: 03/15/2025 16:10 ET Workstation ID: [id number] Transcribed By: Self Edit Transcribed Date: 03/15/2025 16:09 ET Narrative 03/15/2025 4:10 PM EDT PELVIS, SINGLE FRONTAL VIEW RIGHT HIP, FRONTAL & FROG LEG LATERAL VIEWS HISTORY: Right hip pain. PRIORS: None. FINDINGS: There are bilateral hip prostheses. The stem end of the right hip prosthesis appears to be in satisfactory position. No radiographic evidence of loosening. There is a 1.5 x 0.9 cm coarse soft tissue calcific calcification medial to the lesser tuberosity of the right hip. There is history of fusion hardware with titanium cages of the visualized lower lumbar spine. No acute fracture, malalignment, or soft tissue abnormality is seen. Procedure Note Yusra Gomes MD - 03/15/2025 PELVIS, SINGLE FRONTAL VIEW RIGHT HIP, FRONTAL & FROG LEG LATERAL VIEWS HISTORY: Right hip pain. PRIORS: None. FINDINGS: There are bilateral hip prostheses. The stem end of the right hip prosthesis appears to be in satisfactoryposition. No radiographic evidence of loosening. There is a 1.5 x 0.9 cm coarse soft tissue calcific calcification medialto the lesser tuberosity of the right hip. There is history of fusion hardware with titanium cages of the visualizedlower lumbar spine. No acute fracture, malalignment, or soft tissue abnormality is seen. IMPRESSION: Bilateral hip prostheses. Fusion hardware with titanium cages of the visualized lower lumbarspine. No acute findings. -------- FINAL REPORT -------- Dictated By: Yusra Gomes Dictated Date: 03/15/2025 16:09 ET Assigned Physician: Yusra Gomes Reviewed and Electronically Signed By: Yusra Gomes Signed Date: 03/15/2025 16:10 ET Workstation ID: [id number] Transcribed By: Self Edit Transcribed Date: 03/15/2025 16:09 ET us Frank Berry MD IMG XR PROCEDURES Final Res ult * XR Lumbar Spine 4+ Views (03/15/2025 3:34 PM EDT) Anatomical Region Laterality Modality Spine, L-spine Radiographic Kathy ging 03/15/2025 4:06 PM EDT Impressions 03/15/2025 4:08 PM EDT No acute findings. Posterior fusion hardware as described. Degenerative changes as described. -------- FINAL REPORT -------- Dictated By: Yusra Gomes Dictated Date: 03/15/2025 16:06 ET Assigned Physician: Yusra Gomes Reviewed and Electronically Signed By: Yusra Gomes Signed Date: 03/15/2025 16:08 ET Workstation ID: [id number] Transcribed By: Self Edit Transcribed Date: 03/15/2025 16:06 ET Narrative 03/15/2025 4:08 PM EDT LUMBOSACRAL SPINE, 4 VIEWS INCLUDING OBLIQUES HISTORY: Chronic low back pain. FINDINGS: There is posterior fusion hardware with titanium cages from L3 through L5. There is mild curvature of the thoracolumbar spine. Mild to moderate endplate spurring at virtually every level. There is disc space narrowing at L5-S1. There is facet hypertrophy of the lower lumbar spine. No fractures are seen. There is atherosclerosis. There appear to be anastomotic sutures in the right abdomen. There is a partially visualized hardware from bilateral hip prostheses. Procedure Note Yusra Gomes MD - 03/15/2025 LUMBOSACRAL SPINE, 4 VIEWS INCLUDING OBLIQUES HISTORY: Chronic low back pain. FINDINGS: There is posterior fusion hardware with titanium cages from L4fnkeqve L5. There is mild curvature of the thoracolumbar spine. Mild to moderate endplate spurring at virtually every level. There is discspace narrowing at L5-S1. There is facet hypertrophy of the lower lumbar spine. No fractures are seen. There is atherosclerosis. There appear to be anastomotic sutures in the right abdomen. There is a partially visualized hardware from bilateral hip prostheses. IMPRESSION: No acute findings. Posterior fusion hardware as described. Degenerative changes as described. -------- FINAL REPORT -------- Dictated By: Yusra Gomes Dictated Date: 03/15/2025 16:06 ET Assigned Physician: Yusra Gomes Reviewed and Electronically Signed By: Yusra Gomes Signed Date: 03/15/2025 16:08 ET Workstation ID: [id number] Transcribed By: Self Edit Transcribed Date: 03/15/2025 16:06 ET Frank Berry MD IMG XR PROCEDURES Final Res ult * HIV 1,2 antibody, p24 antigen with reflex to differentiation (08/12/2024 7:54 AM EST) HIV Combo AB/AG Negative Negative LAB CHEMISTRY METHOD 08/12/2024 10:52 AM EST [facility] Blood Venous blood specimen / Unknown Venipuncture / Unknown 08/12/2024 7:54 AM EST 08/12/2024 7:54 AM EST Narrative [facility] - 08/12/2024 10:52 AM EST This assay is a 4th generation assay allowing for earlier detection of HIV infection by detecting the presence of the HIV-1 p24 antigen as well as the traditional antibodies to HIV type 1 (including group O) and type 2. Use of a 4th generation assay is the current CDC recommendation for HIV screening. us Floyd Romero MD LAB BLOOD ORDERABLES F inal Result [facility] [address] [place] [address], [place] [phone] * SCREENING MAMMOGRAPHY BI 2-VIEW BREAST INC [...] in conjunction with computer aided detection. Tomosynthesis as well as 2D C-View imaging were obtained. Comparison: Comparison made to multiple priors, most recent June 24, 2023, and most remote July 29, 2019. Breast composition: There are scattered areas of fibroglandular density. Bilateral breasts: No significant masses, suspicious calcifications or other abnormalities are seen in either breast. IMPRESSION: Impression: Bilateral breasts: Negative, no specific mammographic evidence of malignancy. Normal interval follow-up is recommended in 12 [...] months. BI-RADS: Category 1: Negative us Suyapa RICARDO IMG XR PROCEDURES Final Result * Hepatitis C Screening (12/24/2023) Hepatitis C Screening abstracted us Historical Provider HEALTH MAINTENANCE Final Result * Colonoscopy (03/18/2021) Colonoscopy no interpretation , abstracted Anatomical Region Laterality Modality Other Historical Provider HEALTH MAINTENANCE Final Result from Last 3 Months or Most Recently Relevant to Health Maintenance Insurance [place]ICA[place] - [place] [employer] MEDICARE Care Teams Pool Nurse Relationship Specialty Start Date End Date Frank Berry MD [address] [place] [address] PCP - General Internal Medicine 03/15/25
--- OUTSIDE RECORDS SUMMARY | 2025-03-20 14:03 | XMS_ITS | Clinical Summary ---
Author Organization [facility] Address [address] [place] [address] Care Team Providers Care Senior Counsel Commercial Name Role Phone Diana Martinez Primary Care Provider [phone]- [phone] Allergies Active Allergy Reactions Criticality Noted Date [...] 79 02/12/2023 7:34 AM EDT Temperature 37.1 C (98.7 F) 02/12/2023 7:34 AM EDT Respiratory Rate 18 02/12/2023 7:34 AM EDT Oxygen Saturation 98% 02/12/2023 7:34 AM EDT Inhaled Oxygen Concentration - - Weight 97.5 kg (215 lb) 02/11/2023 3:13 PM EDT Height 167.6 cm (5' 6 ) 02/11/2023 3:13 PM EDT Body Mass Index 34.7 02/11/2023 3:13 PM EDT Plan of Treatment Health Maintenance Due Date Last Done Comments Hepatitis C Screening 1965 COVID-19 Vaccine (#1) 1965 Depression Screening 1977 BMI Counseling 1983 Preventative Health Evaluation 1983 Cervical Cancer Screening (P ap Smear) 1986 Colon Cancer Screening (Colonoscopy) 2010 Breast Cancer Screening (Mammogram) 2015 Shingrix-Zoster Vaccine (1 of 2) 2015 DTap / Tdap / Td (2 - Td or Tdap) 11/08/2022 013 Influenza Vaccine (#1) 2025 RSV Adult > 60+ Yrs or Pregn ant (1 - 1-dose 75+ series) 2040 Hepatitis B Vaccines Aged Out No long er eligible based on patient's age to complete this topic Pneumococcal Vaccine Aged Out No long er eligible based on patient's age to complete this topic RSV Ped < 20 months Aged Out No longe r eligible based on patient's age to complete this topic Medical Devices Implanted Type Area Deputy Chief Executive Device Identifier Shelf Expiration Date Model / Serial / Lot Surgiflo Hemostatic Matrix [id number] - [id number] Implanted:Qty : 2 on 08/09/2021 by Andrea Polanco [place] [facility] Hemostatic Agent Anterior: Spine Cervical [facility] [employer] 11/04/2022 2991 / / [id number] Size 5 Standard Tapered Stem Cementless Implanted:Qty : 1 on 12/29/2022 by Clifton Esteban MD [place] [facility] Total Joint Right: Hip [id number] 10/01/2027 / / [id number] +4 Femoral Head Implanted:Qty : 1 on 12/29/2022 by Clifton Esteban MD [place] [facility] Total Joint Right: Hip [id number] 07/04/2026 / / [id number] Description:Renata 36mm +4mm Acetabular Liner 36mm X 52\54 10 Hooded E-Max - [id number] - [id number] Implanted:Qty : 1 on 04/07/2018 by Bairon Adame MD [place] [facility] Left: Hip [employer] 09/19/2022 1523-365 -254 / / [id number] Cancellous Bone Screw 6.5mm X 20mm - [id number] - [id number] Implanted:Qty : 1 on 04/07/2018 by Bairon Adame MD [place] [facility] Left: Hip [employer] 10/26/2022 1501-865 -020 / / [id number] Acetabular Bone Screw 6.5mm X 30mm - [id number] - [id number] Implanted:Qty : 1 on 04/07/2018 by Bairon Adame MD [place] [facility] Left: Hip [employer] 08/22/2021 1501-865 -030 / / [id number] Stem Tapered Femoral Extended-Late ral Offset 6.75mm - 682280 - [id number] Implanted:Qty : 1 on 04/07/2018 by Bairon Adame MD [place] [facility] Left: Hip RENOVI 07/21/2022 1401-922 -067 / / [id number] Biolox Delta Ceramic Femoral Head Sz 36mm -4 - [id number] - [id number] Implanted:Qty : 1 on 04/07/2018 by Bairon Adame MD [place] [facility] Left: Hip [employer] 03/03/2022 1451-036 -004 / / [id number] Plate Yolo 57mm 3 Level Bone Stry-K2m [id number] 96204 - [id number] Implanted:Qty : 1 on 08/09/2021 by Andrea Polanco DO [place] [facility] Anterior: Spine Cervical [employer] [id number] 57V / / Screw Yolo Self-Start 4x16mm Stry-K2m 8801-09962uh- [id number] - [id number] Implanted:Qty : 7 on 08/09/2021 by Andrea Polanco DO at [facility] Anterior: Spine Cervical [employer] 8801-040 16DA / / Screw Yolo 16mm 4.5mm Self St Stry-Howm 8801-31341jp- 750873 - [id number] Implanted:Qty : 1 on 08/09/2021 by Andrea Polanco DO [place] [facility] Anterior: Spine Cervical [facility] 8801-045 16DA / / Spacer Vikos 14.5x11.5x8mm 7d Stry-Spin 0047-60003d-8 28437 - [id number] Implanted:Qty : 1 on 08/09/2021 by Andrea Polanco DO at [facility] Anterior: Spine Cervical [employer] 06/12/2025 2504-214 08L / [id number] / Spacer Vikos 14.5x11.5x7mm 7d Stry-Spin 5773-63612y-0 03522 - [id number] Implanted:Qty : 1 on 08/09/2021 by Andrea Polanco DO at [facility] Anterior: Spine Cervical [employer] 10/24/2025 2504-214 07L / [id number] / Spacer Vikos 14.5x11.5x7mm 7d Stry-Spin 4239-99454j-3 74680 - [id number] Implanted:Qty : 1 on 08/09/2021 by Andrea Polanco DO at [facility] Anterior: Spine Cervical [employer] 08/02/2025 2504-214 07L / [id number] / Hip Cup Marie Tpr 52mm Sz3 Crng-Manu 321.03.352-63 6960 - [id number] Implanted:Qty : 1 on 12/29/2022 by Clifton Esteban MD [place] [facility] Right: Hip [employer] [id number] 10/13/2027 321.03.3 52 / / [id number] Screw Marie 6.5x25mm Crng-Manu 321.025-88135 7 - [id number] Implanted:Qty : 1 on 12/29/2022 by Clifton Esteban MD at [facility] Right: Hip [employer] [id number] 09/02/2027 321.025 / / [id number] Screw Marie 6.5x20mm Crng-Manu 321.020-10318 6 - [id number] Implanted:Qty : 1 on 12/29/2022 by Clifton Esteban MD [place] [facility] Right: Hip [employer] [id number] 10/02/2027 321.020 / / [id number] Marie Liner Ecima Neutral Offset Implanted:Qty : 1 on 12/29/2022 by Clifton Esteban MD at [facility] Right: Hip [employer] 10/29/2027 322.03.6 36 / / [id number] Explanted Type Area Deputy Chief Executive Device Identifier Shelf Expiration Date Model / Serial / Lot Acetabular Shell Cluster Hole Sz 54mm - [id number] - [id number] Implanted:Qty: 1 on 04/07/2018 by Bairon Adame MD [place] [facility] Explanted:Qty: 1 on 02/11/2023 [place] [facility] Left: Hip RENOVI 12/13/2021 1501-121 -05 3553-2 Advance Directives For more information, please contact: [phone] Documents on File Type Date Recorded Patient Director Online Marketing Expl anation Advance Directive and Living Will [...] in the following way: discussion with healthcare traveling representative . Full Code 08/09/2021 12:40 PM 08/12/2021 9:22 PM This code status was ascertained in the following way: discussion with patient . Care Teams Senior Counsel Commercial Relationship Specialty Start Date End Date Diana Martinez PA [address] [place] [address] PCP - General Physician Cardiology Technologist 12/29/22
--- OUTSIDE RECORDS SUMMARY | 2025-03-20 14:03 | XMS_ITS | Encounter Summary ---
Author Organization [facility] Address [address] [place] [id number] Care Team Providers Care Internet Site Designer Name Role Phone Diana Martinez Primary Care Provider [phone]- [phone] Carl Goodman MD Unavailable Osmar Chicas MD Unavailable [phone] Encounter Details Date Type Department Care Team (Late st Contact Info) Description 10/13/2023 Scanned Document [facility] Department of Internal Medicine [place] [address] [place] [address] Diana Martinez PA [address] [place], [place] [id number] Social History Tobacco Use Types Packs/Day Years Used Date Smoking Tobacco: Former Cigarettes Q uit: 2000 Smokeless Tobacco: Never Alcohol Use Standard Drinks/Week Comments Not Currently 0 (1 standard drink = 0.6 oz pur e alcohol) Comments Unknown Sex and Gender Information Value Date Recorded Sex Assigned at Not on file Legal Sex Female 2:42 PM EST Gender Identity Not on file Sexual Orientation Not on file documented as of this encounter Plan of Treatment Not on file documented as of this encounter Visit Diagnoses Not on filedocumented in this encounter Care Teams Internet Site Designer Relationship Specialty Start Date End Date Diana Martinez PA [address] [place] [address] PCP - General 01/03/22 Carl Goodman MD [address] [address] Surgery, Orthopedic 01/03/22 Osmar Chicas MD [address] [place] [id number] Cardiovascular Disease 01/03/22 documented as of this encounter
== END 2025-03-20 14:24 | disposition home or self-care (01) ==
LOC: HO.HSMS 13:04
PROVIDERS: PCP Internal Medicine; Visit Provider Psychiatry & Neurology Neurology
DX: G31.84 Mild cognitive impairment of uncertain or unknown etiology (principal); G43.909 Migraine, unspecified, not intractable, without status migrainosus; R51.9 Headache, unspecified; G91.9 Hydrocephalus, unspecified
CPT/HCPCS: 99204; G2211

== ENCOUNTER → 2025-03-20 13:03 | Outpatient (BNVA) | payer MEDICARE, MEDICAID, SELFPAY | PROVIDERS: PCP Internal Medicine; Visit Provider Psychiatry & Neurology Neurology | DX: G31.84 Mild cognitive impairment of uncertain or unknown etiology (principal); G44.89 Other headache syndrome; G43.909 Migraine, unspecified, not intractable, without status migrainosus; G91.9 Hydrocephalus, unspecified | CPT/HCPCS: 99202 ==

== ENCOUNTER 2025-03-23 11:33 | Outpatient (AMB) | payer MEDICARE, MEDICAID, SELFPAY ==
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
--- OUTSIDE RECORDS SUMMARY | 2025-03-23 12:23 | XMS_ITS | Clinical Summary ---
Author Organization Formerly [facility] Address [address] [place] [address] Care Team Providers Care Hotshot Superintendent Name Role Phone Diana Martinez Primary Care Provider [phone]- [phone] Allergies Active Allergy Reactions Criticality Noted Date [...] this topic Medical Devices Implanted Type Area Auto Mechanics Instructor Device Identifier Shelf Expiration Date Model / Serial / Lot Surgiflo Hemostatic Matrix [id number] [id number] - [id number] Implanted:Qty : 2 on 08/09/2021 by Andrea Polanco DO at [facility] Hemostatic Agent Anterior: Spine Cervical [employer] 11/04/2022 2991 / / [id number] Size 5 Standard Tapered Stem Cementless Implanted:Qty : 1 on 12/29/2022 by Clifton Esteban MD at [facility] Total Joint Right: Hip [id number] 10/01/2027 / / [id number] +4 Femoral Head Implanted:Qty : 1 on 12/29/2022 by Clifton Esteban MD at [facility] Total Joint Right: Hip [id number] 07/04/2026 / / [id number] Description:Renata 36mm +4mm Acetabular Liner 36mm X 52\54 10 Hooded E-Max - [id number] - [id number] Implanted:Qty : 1 on 04/07/2018 by Bairon Adame MD at [facility] Left: Hip [employer] 09/19/2022 1523-365 -254 / / [id number] Cancellous Bone Screw 6.5mm X 20mm - [id number] - [id number] Implanted:Qty : 1 on 04/07/2018 by Bairon Adame MD at [facility] Left: Hip [employer] 10/26/2022 1501-865 -020 / / [id number] Acetabular Bone Screw 6.5mm X 30mm - [id number] - [id number] Implanted:Qty : 1 on 04/07/2018 by Bairon Adame MD at [facility] Left: Hip [employer] 08/22/2021 1501-865 -030 / / [id number] Stem Tapered Femoral Extended-Late ral Offset 6.75mm - [id number] - [id number] Implanted:Qty : 1 on 04/07/2018 by Bairon Adame MD at [facility] and Med Left: Hip [employer] 07/21/2022 1401-922 -067 / / [id number] Biolox Delta Ceramic Femoral Head Sz 36mm -4 - [id number] - [id number] Implanted:Qty : 1 on 04/07/2018 by Bairon Adame MD at [facility] and Med Left: Hip [employer] 03/03/2022 1451-036 -004 / / [id number] Plate Floyd 57mm 3 Level Bone Stry-K2m [id number]-[id number] 65056 - [id number] Implanted:Qty : 1 on 08/09/2021 by Andrea Polanco DO at [facility] and Med Anterior: Spine Cervical [employer] [id number] 57V / / Screw Floyd Self-Start 4x16mm Stry-K2m 8801-73639id- 891595 - [id number] Implanted:Qty : 7 on 08/09/2021 by Andrea Polanco DO at [facility] and Med Anterior: Spine Cervical [employer] 8801-040 16DA / / Screw Floyd 16mm 4.5mm Self St Stry-Howm 8801-87582xz- 745849 - [id number] Implanted:Qty : 1 on 08/09/2021 by Andrea Polanco DO at [facility] and Med Anterior: Spine Cervical [employer] 8801-045 16DA / / Spacer Vikos 14.5x11.5x8mm 7d Stry-Spin 7920-18896r-8 51130 - [id number] Implanted:Qty : 1 on 08/09/2021 by Andrea Polanco DO at [facility] and Med Anterior: Spine Cervical [employer] 06/12/2025 2504-214 08L / [id number] / Spacer Vikos 14.5x11.5x7mm 7d Stry-Spin 3319-61184n-7 34464 - [id number] Implanted:Qty : 1 on 08/09/2021 by Andrea Polanco DO at [facility] and Med Anterior: Spine Cervical [employer] 10/24/2025 2504-214 07L / [id number] / Spacer Vikos 14.5x11.5x7mm 7d Stry-Spin 4600-33207r-8 72610 - [id number] Implanted:Qty : 1 on 08/09/2021 by Andrea Polanco DO at [facility] Anterior: Spine Cervical [employer] 08/02/2025 2504-214 07L / [id number] / Hip Cup Marie Tpr 52mm Sz3 Crng-Manu 321.03.352-63 6960 - [id number] Implanted:Qty : 1 on 12/29/2022 by Clifton Esteban MD at [facility] Right: Hip [employer] [id number] 10/13/2027 321.03.3 52 / / [id number] Screw Marie 6.5x25mm Crng-Manu 321.025-14787 7 - [id number] Implanted:Qty : 1 on 12/29/2022 by Clifton Esteban MD at [facility] Right: Hip [employer] [id number] 09/02/2027 321.025 / / [id number] Screw Marie 6.5x20mm Crng-Manu 321.020-40033 6 - [id number] Implanted:Qty : 1 on 12/29/2022 by Clifton Esteban MD at [facility] Right: Hip [employer] [id number] 10/02/2027 321.020 / / [id number] Marie Liner Ecima Neutral Offset Implanted:Qty : 1 on 12/29/2022 by Clifton Esteban MD at [facility] Right: Hip [employer] 10/29/2027 322.03.6 36 / / [id number] Explanted Type Area Auto Mechanics Instructor Device Identifier Shelf Expiration Date Model / Serial / Lot Acetabular Shell Cluster Hole Sz 54mm - [id number] - [id number] Implanted:Qty: 1 on 04/07/2018 by Bairon Adame MD at [facility] Explanted:Qty: 1 on 02/11/2023 at [facility] and Med Left: Hip [employer] 12/13/2021 1501-121 -05 3553-2 Advance Directives For more information, please contact: [phone] Documents on File Type Date Recorded Patient Traffic Operator Expl anation Advance Directive and Living [...] in the following way: discussion with healthcare primary care sales representative . Full Code 08/09/2021 12:40 PM 08/12/2021 9:22 PM This code status was ascertained in the following way: discussion with patient . Care Teams Hotshot Superintendent Relationship Specialty Start Date End Date Diana Martinez PA [address] [place] [address] PCP - General Physician Sustainable Agriculture Specialist 12/29/22
--- OUTSIDE RECORDS SUMMARY | 2025-03-23 12:23 | XMS_ITS | Clinical Summary ---
Author Organization [address] Address [address] [place] [address] [place] [address] Phone Care Team Providers Care Director [facility] Name Role Phone Frank Berry MD Primary [...] (BMI) of 36.0 to 36.9 in adult ([facility] V24, [facility] V28) 06/18/2024 Adenoma of colon 12/28/2023 Overview (06/18/2024): History of adenoma greater than 10 mm. Last colonoscopy 03/2021, follow-up 5 years Anxiety and depression 12/24/2023 Gastroesophageal reflux disease 12/24/2023 Low magnesium level 12/24/2023 Other hyperlipidemia 12/24/2023 Primary hypertension 12/24/2023 PTSD (post-traumatic stress disorder) 12/24/2023 Seizures ([facility] V24, [facility] V28) 12/24/2023 Resolved Problems Problem Noted Date Diagnosed Date Resolved Date Vitamin B12 deficiency 12/24/202308/01 Vitamin D deficiency 12/24/2023 024 Encounters Date Type Department Care Team Description 03/17/2025 Telephone Adult [address] [phone] Floyd Romero MD 03/15/2025 3:09 PM EDT - 03/15/2025 11:59 PM EDT Hospital Encounter [address] [phone] Annual wellness visit; Routine general medical examination at a health care facility; Right hip pain Discharge Disposition: Home or Self Care 03/15/2025 3:09 PM EDT - 03/15/2025 11:59 PM EDT Hospital Encounter [address] [phone] Annual wellness visit; Routine general medical examination at a health care facility; Chronic low back pain, unspecified back pain laterality, unspecified whether sciatica present Discharge Disposition: Home or Self Care 03/15/2025 2:00 PM EDT Office Visit [address] [phone] Frank Berry MD Annual wellness visit (Primary [...] history of pancreatic cancer; Seizures (CMS/HCC V24, [facility] V28); Mild cognitive impairment; Other hyperlipidemia; Anxiety and depression 01/13/2025 1:30 PM EDT Treatment Pelvic Floor Rehabilitation - [address] [phone] Yessica Sanchez PT Urinary incontinence, unspecified type [...] Vitamin D deficiency 12/24/2023 Epilepsy (CMS/HCC V24, [facility] V28) Stroke (CMS/HCC V24, CMS/HCC [...] your loved ones. For example, child care supervisor or elderly care for an older [...] Refused) Breast Cancer Screening 03/14/2026 03/14/2024, 03/14 Social Influencers of Health Screening 03/14/2026 03/14/2025 Medicare Annual Wellness Visit 03/15/2026 03/15/2025 Hypertension/CHF/CAD Annual BMP Blood Test 03/16/2026 03/16/2025, 09/15/2024, 08/12/2024, Additional history exists Colorectal Cancer Screening: Colonoscopy 03/18/2026 03/18/2021, 11/03/1999 DTaP,Tdap,and Td Vaccines (3 - Td or Tdap) 03/11/2028 03/11/2018, 11/08/2012 Cholesterol Screening (Lipid Panel) 03/16/2030 03/16/2025, 08/12/2024, 03/09/2024, Additional history exists Hepatitis C Screening Completed 12/24/2023 HIV Screening Completed 08/12/2024 Depression Screening Completed 03/14/2025 Pneumococcal Vaccine: 50+ Years Completed 03/15/2025 HIB [...] this topic Medical Devices Implanted Type Area Hat Mender Device Identifier Shelf Expiration Date Model / Serial / Lot Surgiflo Hemostatic Matrix [id number] Implanted:Qty : 2 on 08/09/2021 by Andrea Polanco DO Implants N/A: Spine Cervical [employer] 11/04/2022 2991 / / [id number] Size 5 Standard Tapered Stem Cementless Implanted:Qty : 1 on 12/29/2022 by Clifton Esteban MD Joints Right: Hip [id number] 10/01/2027 / / [id number] +4 Femoral Head Implanted:Qty : 1 on 12/29/2022 by Clifton Esteban MD Joints Right: Hip [id number] 07/04/2026 / / [id number] Description:Renata 36mm +4mm Spacer Vikos 14.5x11.5x8mm 7d Stry-Spin [id number] 74405 - [id number] Implanted:Qty : 1 on 08/09/2021 by Andrea Polanco DO N/A: Spine Cervical [employer] 06/12/2025 2504-214 08L / [id number] / Spacer Vikos 14.5x11.5x7mm 7d Stry-Spin [id number] 70558 - [id number] Implanted:Qty : 1 on 08/09/2021 by Andrea Polanco DO N/A: Spine Cervical [employer] 10/24/2025 2504-214 07L / [id number] / Spacer Vikos 14.5x11.5x7mm 7d Stry-Spin [id number] 36378 - [id number] Implanted:Qty : 1 on 08/09/2021 by Andrea Polanco DO N/A: Spine Cervical [employer] 08/02/2025 2504-214 07L / [id number] / Plate Thayer 57mm 3 Level Bone Stry-K2m [id number] Implanted:Qty : 1 on 08/09/2021 by Andrea Polanco DO N/A: Spine Cervical [employer] BI18-60R 57V / / Screw Thayer Self-Start 4x16mm Stry-K2m [id number]- [id number] Implanted:Qty : 7 on 08/09/2021 by Andrea Polanco, DO N/A: Spine Cervical [employer] 8801-040 16DA / / Screw Thayer 16mm 4.5mm Self St Stry-Howm [id number]- [id number] Implanted:Qty : 1 on 08/09/2021 by Andrea Polanco, N/A: Spine Cervical [employer] 8801-045 16DA / / Screw Marie 6.5x20mm Crng-Manu [id number] 6 Implanted:Qty : 1 on 12/29/2022 by Clifton Esteban MD Right: Hip [employer] [id number] 10/02/2027 321.02 0 / [id number] Marie Liner Ecima Neutral Offset Implanted:Qty : 1 on 12/29/2022 by Clifton Esteban MD Right: Hip [employer] 10/29/2027 322.03.6 36 / / [id number] Hip Cup Marie Tpr 52mm Sz3 Crng-Manu [id number] 6960 Implanted:Qty : 1 on 12/29/2022 by Clifton Esteban MD Right: Hip [employer] [id number] 10/13/2027 321.03 .3 52 / / [id number] Screw Marie 6.5x25mm Crng-Manu 321.025-90855 7 Implanted:Qty : 1 on 12/29/2022 by Clifton Esteban MD Right: Hip [employer] [id number] 09/02/2027 321.02 5 / [id number] Procedures Procedure Name Priority Date/Time Associated Diagnosis Comments ALKALINE PHOSPHATASE Routine 03/16/2025 1:11 PM EDT Elevated alkaline phosphatase level VITAMIN D 25 HYDROXY Routine 03/16/2025 1:11 PM EDT Elevated alkaline phosphatase level Vitamin D deficiency ALKALINE PHOSPHATASE, BONE SPECIFIC Routine 03/16/2025 1:11 PM EDT Elevated alkaline phosphatase level CBC WITH AUTO DIFFERENTIAL Routine 03/16/2025 8:24 [...] visit Routine general [facility] examination [facility] MAGNESIUM Routine 03/16/2025 8:24 AM [...] Recently Relevant to Health Maintenance Results * Alkaline phosphatase, bone specific (03/16/2025 1:11 PM EDT) Pathologist [facility] Alkaline Phosphatase Bone 14.2 5.6 - 29.0 ug/L 03/20/2025 2:[address] [facility] Comment: Liver alkaline phosphatase can affect the measurement of bone specific alkaline phosphatase in this assay. Each 100 U/L of liver alkaline phosphatase contributes an additional 2.5 to 5.8 ug/L to the bone specific alkaline phosphatase result. Test performed at [facility], [address] [place] [address] Ping Spencer MD, PhD - Floral Designer Salesperson Blood Venous blood specimen / Unknown Venipuncture / Unknown 03/16/2025 1:11 PM EDT 03/16/2025 1:11 PM EDT Frank Berry MD LAB BLOOD ORDERABLES Final Result [facility] [address] [email or web address] [address] * Vitamin D 25 hydroxy (03/16/2025 1:11 PM EDT) [facility] Vit D, 25-Hydroxy 33.6 30.0 - 80.0 ng/mL LAB CHEMISTRY METHOD 03/16/2025 6:31 PM EDT [facility] Blood Venous blood specimen / Unknown Venipuncture / Unknown 03/16/2025 1:11 PM EDT 03/16/2025 1:11 PM EDT Frank Berry MD LAB BLOOD ORDERABLES Final Result [facility] [address] [place] [address], [place] [phone] * (ABNORMAL) Alkaline phosphatase (03/16/2025 1:11 PM EDT) [facility] Alkaline Phosphatase 135(H) 42 - 121 unit/L LAB CHEMISTRY METHOD 03/16/2025 5:42 PM EDT [facility] Blood Venous blood specimen / Unknown Venipuncture / Unknown 03/16/2025 1:11 PM EDT 03/16/2025 1:11 PM EDT Frank Berry MD LAB BLOOD ORDERABLES Final Result Performing Organization Address City/[facility]/ZIP Co de Phone Number [facility] [address] [place] [address], [place] [phone] * Thyroid stimulating hormone with reflex to free t4 and free t3 (03/16/2025 8:24 AM EDT) [facility] TSH 1.35 0.40 - 4.00 mcIU/mL LAB CHEMISTRY METHOD 03/16/2025 12:32 PM EDT [facility] Blood Venous blood specimen / Unknown Venipuncture / Unknown 03/16/2025 8:24 AM EDT 03/16/2025 8:24 AM EDT Frank Berry MD LAB BLOOD ORDERABLES Final Result [facility] [address] [place] [address], [place] [phone] * Lipid panel with reflex to direct LDL (03/16/2025 8:24 AM EDT) [facility] Cholesterol 194 0 - 200 mg/dL LAB CHEMISTRY METHOD 03/16/2025 12:05 PM EDT [facility] Triglycerides 114 0 - 150 mg/dL LAB CHEMISTRY METHOD 03/16/2025 12:05 PM EDT [facility] HDL 98 >=40 mg/dL LAB CHEMISTRY METHOD 03/16/2025 12:05 PM EDT [facility] LDL Calculated 73 0 - 100 mg/dL LAB CHEMISTRY METHOD 03/16/2025 12:05 PM [facility] VLDL Cholesterol Jai 22.8 mg/dL LAB CHEMISTRY METHOD 03/16/2025 12:05 PM EDT [facility] Non HDL Chol. (LDL+VLDL) 96 <145 mg/dL LAB CHEMISTRY METHOD 03/16/2025 12:05 PM EDT [facility] Chol/HDL Ratio 2.0 0.0 - 4.4 LAB CHEMISTRY METHOD 03/16/2025 12:05 PM [facility] Blood Venous blood specimen / Unknown Venipuncture / Unknown 03/16/2025 8:24 AM EDT 03/16/2025 8:24 AM EDT Frank Berry MD LAB BLOOD ORDERABLES Final Result [facility] [address] [place] [address], * (ABNORMAL) CBC auto differential (03/16/2025 8:24 AM EDT) WBC 7.3 4.8 - 10.8 K/mcL LAB HEMETOLOGY METHOD 03/16/2025 10:37 AM EDT [facility] RBC 4.70 3.80 - 4.80 M/[facility] LAB HEMETOLOGY METHOD 03/16/2025 10:37 AM EDT [facility] Hemoglobin 13.2 11.5 - 16.0 g/dL LAB HEMETOLOGY METHOD 03/16/2025 10:37 AM [facility] Hematocrit 41.5 35.0 - 47.0 % LAB HEMETOLOGY METHOD 03/16/2025 10:37 AM EDT [facility] MCV 89.2 79.0 - 98.0 FL LAB HEMETOLOGY METHOD 03/16/2025 10:37 AM EDT [facility] MCH 28.4 27.0 - 32.0 pcg LAB HEMETOLOGY METHOD 03/16/2025 10:37 AM [facility] MCHC 31.8(L) 32.0 - 37.0 g/dL LAB HEMETOLOGY METHOD 03/16/2025 10:37 AM EDT [facility] RDW 12.6 11.0 - 15.0 % LAB HEMETOLOGY METHOD 03/16/2025 10:37 AM T [facility] Platelets 219 130 - 400 K/mcL LAB HEMETOLOGY METHOD 03/16/2025 10:37 AM [facility] MPV 9.0 7.0 - 11.0 FL LAB HEMETOLOGY METHOD 03/16/2025 10:37 AM [facility] NRBC 0.0 <1.0 % LAB HEMETOLOGY METHOD 03/16/2025 10:37 AM [facility] NRBC Absolute 0.00 <0.10 K/mcL LAB HEMETOLOGY METHOD 03/16/2025 10:37 AM [facility] Neutrophils Relative 59.6 % LAB HEMETOLOGY METHOD 03/16/2025 10:37 AM [facility] Lymphocytes Relative 28.7 % LAB HEMETOLOGY METHOD 03/16/2025 10:37 AM [facility] Monocytes Relative 9.1 % LAB HEMETOLOGY METHOD 03/16/2025 10:37 AM [facility] Eosinophils Relative 1.8 % LAB HEMETOLOGY METHOD 03/16/2025 10:37 AM [facility] Basophils Relative 0.5 % LAB HEMETOLOGY METHOD 03/16/2025 10:37 AM EDT [facility] Immature Granulocytes Relative 0.3 % LAB HEMETOLOGY METHOD 03/16/2025 10:37 AM EDT [facility] Neutrophils Absolute 4.37 1.50 - 7.00 K/[facility] HEMETOLOGY METHOD 03/16/2025 10:37 AM EDT [facility] Lymphocytes Absolute 2.11 1.00 - 5.00 K/mcL LAB HEMETOLOGY METHOD 03/16/2025 10:37 AM EDT [facility] Monocytes Absolute 0.67 0.20 - 1.00 K/mcL LAB HEMETOLOGY METHOD 03/16/2025 10:37 AM EDT [facility] Eosinophils Absolute 0.13 0.00 - 0.50 K/mcL LAB HEMETOLOGY METHOD 03/16/2025 10:37 AM EDT [facility] Basophils Absolute 0.04 0.00 - 0.20 K/mcL LAB HEMETOLOGY METHOD 03/16/2025 10:37 AM EDT [facility] Immature Granulocytes Absolute 0.02 0.00 - 0.03 K/mcL LAB HEMETOLOGY METHOD 03/16/2025 10:37 AM [facility] Blood Venous blood specimen / Unknown Venipuncture / Unknown 03/16/2025 8:24 AM EDT 03/16/2025 8:24 AM EDT us Frank Berry MD LAB BLOOD ORDERABLES Final Result [facility] [address] [place] [address], * Phosphorus (03/16/2025 8:24 AM EDT) Phosphorus 3.9 2.5 - 4.5 mg/dL LAB CHEMISTRY METHOD 03/16/2025 12:03 PM EDT [facility] Blood Venous blood specimen / Unknown Venipuncture / Unknown 03/16/2025 8:24 AM EDT 03/16/2025 8:24 AM EDT us Frank Berry MD LAB BLOOD ORDERABLES Final Result Performing Organization Address [facility]/ZIP Co de Phone Number [facility] [address] [place] [address], [place] [phone] * Magnesium (03/16/2025 8:24 AM EDT) [facility] Magnesium 2.6 1.9 - 2.6 mg/dL LAB CHEMISTRY METHOD 03/16/2025 11:32 AM EDT [facility] Blood Venous blood specimen / Unknown Venipuncture / Unknown 03/16/2025 8:24 AM EDT 03/16/2025 8:24 AM EDT us Frank Berry MD LAB BLOOD ORDERABLES Final Result Performing Organization Address [facility]/ZIP Co de Phone Number [facility] [address] [place] [address], [place] [phone] * Vitamin B12 (03/16/2025 8:24 AM EDT) [facility] Vitamin B-12 884 250 - 900 pcg/mL LAB CHEMISTRY METHOD 03/16/2025 12:03 PM EDT [facility] Blood Venous blood specimen / Unknown Venipuncture / Unknown 03/16/2025 8:24 AM EDT 03/16/2025 8:24 AM EDT us Frank Berry MD LAB BLOOD ORDERABLES Final Result Performing Organization Address City/[facility]/ZIP Co de Phone Number [facility] [address] [place] [address], [place] [phone] * (ABNORMAL) Comprehensive metabolic panel (03/16/2025 8:24 AM EDT) Sodium 141 133 - 145 mmol/L LAB CHEMISTRY METHOD 03/16/2025 12:03 PM [facility] Potassium 3.9 3.5 - 5.5 mmol/L LAB CHEMISTRY METHOD 03/16/2025 12:03 PM [facility] Chloride 106 96 - 110 mmol/L LAB CHEMISTRY METHOD 03/16/2025 12:03 PM [facility] CO2 30 21 - 32 mmol/L LAB CHEMISTRY METHOD 03/16/2025 12:03 PM [facility] Anion Gap 5 3 - 11 LAB CHEMISTRY METHOD 03/16/2025 12:03 PM [facility] Glucose 95 70 - 100 mg/dL LAB CHEMISTRY METHOD 03/16/2025 12:03 PM [facility] BUN 12 5 - 25 mg/dL LAB CHEMISTRY METHOD 03/16/2025 12:03 PM [facility] Creatinine 0.90 0.50 - 1.10 mg/dL LAB CHEMISTRY METHOD 03/16/2025 12:03 PM [facility] eGFR 74 >=60 mL/min/1. 73m2 LAB CHEMISTRY METHOD 03/16/2025 12:03 PM [facility] Comment:Calculation based on the Chronic Kidney Disease Epidemiology Collaboration (CKD-EPI) equation refit without adjustment for race. BUN/Creatinine Ratio 13.3 LAB CHEMISTRY METHOD 03/16/2025 12:03 PM [facility] Calcium 9.5 8.5 - 10.5 mg/dL LAB CHEMISTRY METHOD 03/16/2025 12:03 PM [facility] AST (SGOT) 18 10 - 42 unit/L LAB CHEMISTRY METHOD 03/16/2025 12:03 PM [facility] ALT (SGPT) 25 10 - 60 unit/L LAB CHEMISTRY METHOD 03/16/2025 12:03 PM EDT [facility] Alkaline Phosphatase 140(H) 42 - 121 unit/L LAB CHEMISTRY METHOD 03/16/2025 12:03 PM EDT [facility] Total Protein 7.2 6.0 - 8.0 g/dL LAB CHEMISTRY METHOD 03/16/2025 12:03 PM EDT [facility] Albumin 4.2 3.2 - 5.0 g/dL LAB CHEMISTRY METHOD 03/16/2025 12:03 PM EDT [facility] Total Bilirubin 0.4 0.0 - 1.4 mg/dL LAB CHEMISTRY METHOD 03/16/2025 12:03 PM EDT [facility] Blood Venous blood specimen / Unknown Venipuncture / Unknown 03/16/2025 8:24 AM EDT 03/16/2025 8:24 AM EDT us Frank Berry MD LAB BLOOD ORDERABLES Final Result [facility] [address] [place] [address], [place] [phone] * XR Hip 2-3 Views Right (03/15/2025 [...] Signed Date: 03/15/2025 16:10 ET Workstation ID: [id number] Transcribed By: Self Edit Transcribed Date: 03/15/2025 [...] Signed Date: 03/15/2025 16:10 ET Workstation ID: [id number] Transcribed By: Self Edit Transcribed Date: 03/15/2025 [...] Signed Date: 03/15/2025 16:08 ET Workstation ID: [id number] Transcribed By: Self Edit Transcribed Date: 03/15/2025 [...] posterior fusion hardware with titanium cages from [id number]. There is mild curvature of the [...] Signed Date: 03/15/2025 16:08 ET Workstation ID: [id number] Transcribed By: Self Edit Transcribed Date: 03/15/2025 16:06 ET us Frank Berry MD IMG XR PROCEDURES Final Res ult * HIV 1,2 antibody, p24 antigen with reflex to differentiation (08/12/2024 7:54 AM EST) HIV Combo AB/AG Negative Negative LAB CHEMISTRY METHOD 08/12/2024 10:52 AM EST [facility] Blood Venous blood specimen / Unknown Venipuncture / Unknown 08/12/2024 7:54 AM EST 08/12/2024 7:54 AM EST Narrative [facility] - 08/12/2024 10:52 AM EST [...] MD LAB BLOOD ORDERABLES F inal Result [facility] [address] [place] [address], [place] [phone] * SCREENING MAMMOGRAPHY BI 2-VIEW BREAST INC [...] BI-RADS: Category 1: Negative us Suyapa Parveen RICARDO IMG XR PROCEDURES Final Result * Hepatitis C Screening (12/24/2023) Hepatitis C Screening abstracted Historical Provider HEALTH MAINTENANCE Final Result * Colonoscopy (03/18/2021) Colonoscopy no interpretation , abstracted Anatomical Region Laterality Modality Other Historical Provider HEALTH MAINTENANCE Final Result from Last 3 Months or Most Recently Relevant to Health Maintenance Insurance MEDICAID - [place] [employer] MEDICARE Care Teams Director Of [facility] Relationship Specialty Start Date End Date Frank Berry MD [address] [place] [address] PCP - General Internal Medicine 03/15/25
--- OUTSIDE RECORDS SUMMARY | 2025-03-23 12:23 | XMS_ITS | Encounter Summary ---
Author Organization [facility] Address [address] [place] [address] Care Team Providers Care Environmental Studies Professor Name Role Phone Diana Martinez Primary Care Provider [phone] Carl Goodman MD Unavailable Osmar Chicas MD Unavailable [phone] Encounter Details Date Type Department Care Team (Late st Contact Info) Description 10/13/2023 Scanned Document [facility] Physicians Department of Internal Medicine [place] [address] [place] [address] Diana Martinez PA [address] [place], [place] [id number] Social History Tobacco Use Types Packs/Day Years [...] on filedocumented in this encounter Care Teams Environmental Studies Professor Relationship Specialty Start Date End Date Diana Martinez PA [address] [place] [address] PCP - General 01/03/22 Carl Goodman MD [address] [address] Surgery, Orthopedic 01/03/22 Osmar Chicas MD [address] [place] [id number] Cardiovascular Disease 01/03/22 documented as of this encounter
--- OUTSIDE RECORDS SUMMARY | 2025-03-23 12:23 | XMS_ITS | Data Portability ---
Author Organization [facility], Medical [facility] ([place] Address [address] [address] Assessment Encounter Date Assessment Date Assessment LastModified by Organization Details LastModified Time 07/04/2021 07/04/2021 According to the practice guidelines for PTSD, [...] - pursue right stellate ganglion block today [email or web address] Not available 07/03/2021 15:34:51 Plan of Treatment [...] Ganglion Block completed Gerry Rodriguez MD [address], , [facility] 07/03/2021 15:34:40 total replacement of hip completed Gerry Rodriguez MD [address], , [facility] 07/04/2021 12:51:02 arthroscopy of shoulder completed Gerry Rodriguez MD [address], , [facility] 07/04/2021 12:51:46 Imaging Results None recorded. Procedure Notes None recorded. Medical Equipment None Reported. Allergies Allergen ID Allergen Name Allergen Category Reaction Reaction Severity Criticality Documentation Date Start Date Code Code System Note Provider Name and Address Organization Details Recorded Time 00783 morphine medicatio n Not available Not available Not available 07/03/2021 7052 RxNoandrea Rodriguez MD [address], [address], [facility] 15:35:39 [address] amoxicill in medicatio n Not available Not available Not available 07/03/2021 723 RxNorm Gerry Rodriguez MD [address], [address], [facility] 15:35:43 29675 Vibramyci n medicatio n Not available Not available Not available 07/03/202186106 5 RxMark Rodriguez MD [address], 6, [facility] 15:35:54 Medications Name [...] SNOMED-CT Code Diagnosis ICD10 Code Diagnosis Note [id number] MADDIE LIM MD [facility] [place] [place] [address] [place] [address] [address],[place] [address] 07/04/2021 12:33:39 07/04/2021 13:29:01 Posttraumatic stress disorder 61263216 F43.10 Chronic post-traumatic stress disorder 982028873 F43.12 Health Concerns Section Related Observation LastModified by Organization Detai ls LastModified Time None Recorded Concern Status LastModified by Organization Details LastModified Time None Recorded Advance Directives Directive None Recorded Payers Insurance Date Sequence Insurance Name Policy Number Policy Carty Covered Member ID Carty Member ID Guarantor Name 07/03/2021 1 *SELF PAY* Nida lacey Jena Notes Date Note Type Note Provider Name and Address Organization Details Recorded Time 07/04/2021 text/html Right Stellate Ganglion Block 07/04/2021 Initial Consultation: 07/04/2021What is your chief complaint today? - PTSD / ANXIETY Onset: Patient presents from the [facility] for PTSD. Patient has never been treated [...] Tried: sertraline, memantine, zolpidem Mary Campos MD [address] [place] [address], [address], [place], [address], [facility] 07/04/2021 13:09:31 OBGyn Episode No OBEpisode recorded.
--- OUTSIDE RECORDS SUMMARY | 2025-03-23 12:23 | XMS_ITS ---
Author Name [facility] Organization Unknown History of Medication Use Medication Directions Dispensed Refills Start Date End Date Stat gabapentin (NEURONTIN) 100 MG capsule Take 100 mg by mouth 2 (two) times a day. 03/04/2023 active methocarbamol 750 mg tablet Take 1 tablet 3 times a day by oral route as needed. 02/17/2023 4 active methocarbamol (ROBAXIN) 750 MG tablet TAKE 1 TABLET 3 TIMES A DAY BY ORAL ROUTE NEEDED. 02/17/2023 active PANTOprazole (PROTONIX) 40 MG EC tablet 12/30/2022 active lamoTRIgine (LaMICtal) 25 MG tablet TAKE 1 TAB IN THE AM AND 2 AT BEDTIME AND AFTER 2 WEEKS TAKE 2 TABLET BY MOUTH 2 TIMES A DAY 11/12/2022 active ondansetron (ZOFRAN) 4 MG tablet PLEASE SEE ATTACHED FOR DETAILED DIRECTIONS 09/12/2022 active SUMAtriptan-naproxe n (TREXIMET) 85-500 MG per tablet Take 1 tablet by mouth. 09/11/2022 active aspirin enteric coated (aspirin enteric coated) 81 MG EC tablet Take 1 tablet (81 mg total) by mouth 2 (two) times a day. 02/07/2022 active clonazePAM (KlonoPIN) 0.5 MG tablet TAKE 1-2 TABLETS ONCE A DAY IF NEEDED FOR ANXIETY 12/31/2021 active cephalexin 500 mg capsule TAKE 1 CAPSULE BY MOUTH THREE TIMES A DAY 4 completed meloxicam 15 mg tablet 4 completed gabapentin 100 mg capsule TAKE 1 CAPSULE BY MOUTH TWICE A DAY 4 completed hydrocodone 7.5 mg-acetaminophen 325 mg tablet TAKE 1 TABLET EVERY 4-6 HOURS NEEDED FOR PAIN 4 active levetiracetam 750 mg tablet TAKE 1 TABLET BY MOUTH EVERY 12 HOURS 4 completed meclizine 25 mg tablet TAKE 1 TABLET 3 TIMES DAILY NEEDED FOR VERTIGO 4 completed ondansetron HCl 4 mg tablet PLEASE SEE ATTACHED FOR DETAILED DIRECTIONS 4 completed oxycodone 5 mg tablet 4 completed Senna Laxative 8.6 mg tablet 4 completed Stimulant Laxative Plus 8.6 mg-50 mg tablet 4 completed valsartan 80 mg tablet TAKE 1 TABLET BY MOUTH EVERY DAY 4 completed zolpidem 10 mg tablet TAKE 1/2 TO 1 TABLET AT BEDTIME NEEDED FOR SLEEP 4 completed prednisone 10 mg tablet active methocarbamol 750 mg tablet active acetaminophen 500 mg tablet active acetaminophen 500 mg tablet active aripiprazole 5 mg tablet TAKE 1/2 TABLET BY MOUTH DAILY WITH FOOD active aspirin 81 mg tablet,delayed release active clonazepam 0.5 mg tablet TAKE 1/2 TO 1 TAB BY MOUTH TWICE A DAY AND MAY TAKE AN ADDITIONAL TAB NEEDED FOR SEVERE ANXIETY active hydrocodone 7.5 mg-acetaminophen 325 mg tablet TAKE 1 TABLET EVERY 4-6 HOURS NEEDED FOR PAIN active ibuprofen 600 mg tablet TAKE 1 TABLET BY MOUTH THREE TIMES A DAY NEEDED FOR PAIN active lamotrigine 100 mg tablet PLEASE SEE ATTACHED FOR DETAILED DIRECTIONS active lamotrigine 150 mg tablet TAKE 1 TABLET BY MOUTH TWICE A DAY active lamotrigine 25 mg tablet TAKE 1 TAB IN THE AM AND 2 AT BEDTIME AND AFTER 2 WEEKS TAKE 2 TABLET BY MOUTH 2 TIMES A DAY active levetiracetam 750 mg tablet TAKE 1 TABLET BY MOUTH EVERY 12 HOURS active meclizine 25 mg tablet TAKE 1 TABLET 3 TIMES DAILY NEEDED FOR VERTIGO active meloxicam 15 mg tablet active methocarbamol 750 mg tablet active rosuvastatin 10 mg tablet TAKE 1 TABLET BY MOUTH EVERYDAY AT BEDTIME active rosuvastatin 10 mg tablet TAKE 1 TABLET BY MOUTH EVERYDAY AT BEDTIME active gabapentin (NEURONTIN) 600 MG tablet gabapentin 600 mg tablet Take 1 tablet 3 times a day by oral route. active naltrexone (REVIA) 25 MG tablet Take 25 mg by mouth nightly. active zolpidem (AMBIEN) 10 MG tablet Take 10 mg by mouth nightly. active Allergies Allergen Reaction Severity Comment Documented Date Source Status LATEX ITCHING C/O: itching 02/05/2022 [facility] active DOXYCYCLINE UNKNOWN/PATIENT AND FAMILY UNABLE TO DEFINEOTHER (SEE COMMENTS) Severe Internal bleeding 01/17/2022 [facility] active MORPHINE HIVESRASH/DERMATITI S Mild Other reaction(s): rash 10/12/2010 [facility] active AMOXICILLIN RASH/DERMATITISHIVE S Mild [facility] IODINATED CONTRAST MEDIA SHORTNESS OF BREATHSHORTNESS OF BREATH Severe SOB [facility] IODINATED DIAGNOSTIC AGENTS SHORTNESS OF BREATH Severe SOB [facility] GABAPENTIN [facility] T VIBRAMYCIN [facility] T Problems Problem Status Onset Date Problem Type Date of Resolution Source History of total replacement of right hip joint active 2023-01-19 ProblemAct [facility] Hip pain active 2022-12-[address] [facility] Dyspnea active 2023-01-06 ProblemAct [facility] Peripheral vertigo active 2023-01-06 ProblemAct [facility] Obesity (BMI 30-39.9) active 2023-01-06 ProblemAct [facility] Hydrocephalus active 2022-11-06 ProblemAct [facility] T Anxiety active 2022-11-06 ProblemAct [facility] Spondylolisthesis of lumbar region active 2018-10-25 ProblemAct [facility] Memory impairment active 2023-01-06 ProblemAct [facility] Cervical radiculopathy active 2018-10-25 ProblemAct [facility] Chronic right shoulder pain active 2023-01-06 ProblemAct [facility] Chronic lower back pain active 2023-01-06 ProblemAct [facility] Positive COLTON (antinuclear antibody) active 2023-01-06 ProblemAct [facility] 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 ProblemAct [facility] Difficulty swallowing active 2023-01-06 ProblemAct [facility] Upper back pain active 2023-01-06 ProblemAct [facility] Bruising active 2022-11-06 ProblemAct [facility] Elevated C-reactive protein (CRP) active 2023-01-06 ProblemAct [facility] Osteoarthritis of right hip active 2022-12-29 ProblemAct [facility] Abnormal head CT active 2022-11-06 ProblemAct [facility] Atelectasis, right active 2022-11-06 ProblemAct [facility] Unsteady gait active 2023-01-06 ProblemAct [facility] T Degenerative disc disease, cervical active 2018-10-25 ProblemAct [facility] Dyslipidemia active 2023-01-06 ProblemAct [facility] S/P cervical spinal fusion active 2023-01-06 ProblemAct [facility] Elevated alkaline phosphatase level active 2023-01-06 ProblemAct [facility] Chest fullness active EncounterDiagnosisAct [facility] Generalized weakness active 2023-01-06 ProblemAct [facility] CVA (cerebral vascular accident) active 2023-01-06 ProblemAct [facility] 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 2023-02-10 ProblemAct [facility] Chronic neck pain active 2018-10-25 ProblemAct [facility] Low vitamin D level active 2022-11-06 ProblemAct [facility] Insomnia active 2022-11-06 ProblemAct [facility] Primary osteoarthritis of left hip active 2018-04-05 ProblemAct [facility] Hypertension active 2022-11-06 ProblemAct [facility] Daytime somnolence active 2023-01-06 ProblemAct [facility] Depression active 2023-01-06 ProblemAct [facility] Lymph nodes enlarged active 2023-01-06 ProblemAct [facility] Jaw pain active 2023-01-06 ProblemAct [facility] Thoracic nerve root impingement active 2022-11-06 ProblemAct [facility] Palpitation active 2023-01-06 ProblemAct [facility] PTSD (post-traumatic stress disorder) active 2023-01-06 ProblemAct [facility] Lumbar stenosis active 2023-01-06 ProblemAct [facility] Immunizations Vaccine Date Source Lot Number Status Tdap 11/08/2012 [facility] [id number] completed Influenza Whole 06/07/2010 [facility] [id number] completed Tetanus Toxoid, Unspecified 09/07/2002 [facility] [id number] completed Encounters Encounter Type Encounter Reason Primary Diagnosis Location Date Ambulatory [facility] 04/13/2024 Ambulatory [facility] 04/12/2024 Ambulatory [facility] 04/12/2024 Ambulatory [facility] 04/12/2024 Ambulatory [facility] 03/23/2024 Ambulatory [facility] 02/17/2024 Ambulatory [facility] 01/05/2024 Ambulatory [facility] 12/22/2023 Ambulatory [facility] 12/21/2023 Ambulatory [facility] 12/04/2023 Ambulatory Hyperlipidemia, unspecified Hyperlipidemia, unspecified [facility] 05/27/2023 Ambulatory Other chest pain Other chest pain [facility] 05/21/2023 Ambulatory [facility] 03/24/2023 Ambulatory [facility] 03/24/2023 Ambulatory Essential (primary) hypertension Essential (primary) hypertension [facility] 03/17/2023 Ambulatory [facility] 02/17/2023 Ambulatory [facility] 02/06/2023 Ambulatory [facility] 01/20/2023 Ambulatory [facility] 01/10/2023 Ambulatory [facility] 01/03/2023 Ambulatory Unspecified symp toms and signs involving the genitourinary system [facility] 12/16/2022 Ambulatory Pain in right hip [facility] 12/10/2022 Ambulatory Essential (prima ry) hypertension [facility] 11/06/2022 Inpatient Spondylolisthesi s, lumbar region [facility] 02/05/2022 Ambulatory Encounter for preprocedural laboratory examination [facility] 02/03/2022 Ambulatory Spinal stenosis, lumbar region with neurogenic claudication [facility] 01/20/2022 Care Team Organization Name Specialty Phone Email Start Date End Da te [facility] EDI LEONARD [facility] 11/06/202211/18 [facility] Brian Chong [facility] 02/05/20222024 [facility] Michelle [facility] 01/20/2022 02/05/2022 [facility] 01/20/20222021
--- OUTSIDE RECORDS SUMMARY | 2025-03-23 12:24 | XMS_ITS | Patient Health Record ---
Author Organization 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 [address] [facility]/13/2024 Aleishawillam Mahan Assessments Encounter Date Diagnosis [...] Date Coverage End Date [employer] Medicare [id number] [address] [address] [place] [address] [id number] trejo Self - patient is the insured Medical (General) History Medical History History ICD Code Arthritis Back,Hip,and Knee pain Depression Seizures High Blood Pressure Numbness Chicken pox Joint implants/screws Surgical History Surgery Date(Month/Year) hip replacement back fusions endoscopy 07/12/24 colonoscopy 07/08/24
== END 2025-03-23 12:25 | disposition home or self-care (01) ==
PROVIDERS: PCP Internal Medicine; Visit Provider Clinical Nurse Specialist Psychiatric/Mental Health
DX: F33.1 Major depressive disorder, recurrent, moderate (principal); F41.1 Generalized anxiety disorder; F43.12 Post-traumatic stress disorder, chronic
CPT/HCPCS: 99215

== ENCOUNTER → 2025-03-23 11:33 | Outpatient (BNVA) | payer MEDICARE, MEDICAID, SELFPAY | PROVIDERS: PCP Internal Medicine; Visit Provider Clinical Nurse Specialist Psychiatric/Mental Health | DX: F33.1 Major depressive disorder, recurrent, moderate (principal); F41.1 Generalized anxiety disorder; F43.12 Post-traumatic stress disorder, chronic | CPT/HCPCS: 99212 ==

== ENCOUNTER 2025-04-13 14:32 | Outpatient (AMB) | payer MEDICARE, MEDICAID, SELFPAY ==
--- OUTSIDE RECORDS SUMMARY | 2025-04-13 14:35 | XMS_ITS | Clinical Summary ---
Author Organization [facility] Address [address] [place] [address] Care Team Providers Care Sane Rn Name Role Phone Diana Martinez Primary Care Provider [phone] Allergies Active Allergy Reactions Criticality Noted Date [...] this topic Medical Devices Implanted Type Area Scholastic Aptitude Test Grader Device Identifier Shelf Expiration Date Model / Serial / Lot Surgiflo Hemostatic Matrix Jn-Ethi [id number] - [id number] Implanted:Qty : 2 on 08/09/2021 by Andrea Polanco DO at [facility] and [facility] Hemostatic Agent Anterior: Spine Cervical [facility] [employer] 11/04/2022 2991 / / [id number] Size 5 Standard Tapered Stem Cementless Implanted:Qty : 1 on 12/29/2022 by Clifton Esteban MD at [facility] and [facility] Total Joint Right: Hip [id number] 10/01/2027 / / [id number] +4 Femoral Head Implanted:Qty : 1 on 12/29/2022 by Clifton Esteban MD at [facility] and [facility] Total Joint Right: Hip [id number] 07/04/2026 / / [id number] Description:Renata 36mm +4mm Acetabular Liner 36mm X 52\54 10 Hooded E-Max - [id number] - [id number] Implanted:Qty : 1 on 04/07/2018 by Bairon Adame MD at [facility] and [facility] Left: Hip [employer] 09/19/2022 1523-365 -254 / / [id number] Cancellous Bone Screw 6.5mm X 20mm - 234989 - [id number] Implanted:Qty : 1 on 04/07/2018 by Bairon Adame MD at [facility] and [facility] Left: Hip [employer] 10/26/2022 1501-865 -020 / / [id number] Acetabular Bone Screw 6.5mm X 30mm - 214764 - [id number] Implanted:Qty : 1 on 04/07/2018 by Bairon Adame MD at [facility] and [facility] Left: Hip RENOVI 08/22/2021 1501-865 -030 / / [id number] Stem Tapered Femoral Extended-Late ral Offset 6.75mm - 059620 - [id number] Implanted:Qty : 1 on 04/07/2018 by Bairon Adame MD at [facility] and Med Left: Hip RENOVI 07/21/2022 1401-922 -067 / / [id number] [employer] Delta Ceramic Femoral Head Sz 36mm -4 - [id number] - [id number] Implanted:Qty : 1 on 04/07/2018 by Bairon Adame MD at [facility] and Med Left: Hip RENOVI 03/03/2022 1451-036 -004 / / [id number] Plate [place] 57mm 3 Level Bone Stry-K2m [id number] 74913 - [id number] Implanted:Qty : 1 on 08/09/2021 by Andrea Polanco DO at [facility] and Med Anterior: Spine Cervical [employer] LV29-21P 57V / / Screw [place] Self-Start 4x16mm Stry-K2m 8801-88994er- 805746 - [id number] Implanted:Qty : 7 on 08/09/2021 by Andrea Polanco DO at [facility] and Med Anterior: Spine Cervical [employer] 8801-040 16DA / / Screw [place] 16mm 4.5mm Self St Stry-Howm 8801-90243mr- 255582 - [id number] Implanted:Qty : 1 on 08/09/2021 by Andrea Polanco DO at [facility] and Med Anterior: Spine Cervical [facility] 8801-045 16DA / / Spacer Vikos 14.5x11.5x8mm 7d Stry-Spin 3941-59128g-3 00267 - [id number] Implanted:Qty : 1 on 08/09/2021 by Andrea Polanco DO at [facility] and Med Anterior: Spine Cervical [employer] 06/12/2025 2504-214 08L / [id number] / Spacer Vikos 14.5x11.5x7mm 7d Stry-Spin 0179-89272p-2 33638 - [id number] Implanted:Qty : 1 on 08/09/2021 by Andrea Polanco DO at [facility] and Med Anterior: Spine Cervical [employer] 10/24/2025 2504-214 07L / [id number] / Spacer Vikos 14.5x11.5x7mm 7d Stry-Spin 1447-23653j-2 20414 - [id number] Implanted:Qty : 1 on 08/09/2021 by Andrea Polanco DO at [facility] and [facility] Anterior: Spine Cervical [employer] 08/02/2025 2504-214 07L / [id number] / Hip Cup Marie Tpr 52mm Sz3 Crng-Manu 321.03.352-63 6960 - [id number] Implanted:Qty : 1 on 12/29/2022 by Clifton Esteban MD at [facility] and [facility] Right: Hip [employer] [id number] 10/13/2027 321.03.3 52 / / [id number] Screw Marie 6.5x25mm Crng-Manu 321.025-89743 7 - [id number] Implanted:Qty : 1 on 12/29/2022 by Clifton Esteban MD at [facility] and [facility] Right: Hip [employer] [id number] 09/02/2027 321.025 / / [id number] Screw Marie 6.5x20mm Crng-Manu 321.020-29105 6 - [id number] Implanted:Qty : 1 on 12/29/2022 by Clifton Esteban MD at [facility] and [facility] Right: Hip [employer] [id number] 10/02/2027 321.020 / / [id number] Marie Liner Ecima Neutral Offset Implanted:Qty : 1 on 12/29/2022 by Clifton Esteban MD at [facility] and [facility] Right: Hip [employer] 10/29/2027 322.03.6 36 / / [id number] Explanted Type Area Scholastic Aptitude Test Grader Device Identifier Shelf Expiration Date Model / Serial / Lot Acetabular Shell Cluster Hole Sz 54mm - [id number] - [id number] Implanted:Qty: 1 on 04/07/2018 by Bairon Adame MD at [facility] and [facility] Explanted:Qty: 1 on 02/11/2023 at [facility] and Med Left: Hip RENOVI 12/13/2021 1501-121 -05 3553-2 Advance Directives For more information, please contact: [phone] Documents on File Type Date Recorded 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 Full Code 08/09/2021 12:40 PM 08/12/2021 9:22 PM This code status was ascertained in the following way: discussion with patient . Care Teams Sane Rn Relationship Specialty Start Date End Date Diana Martinez PA [address] [place] [address] PCP - General Physician School Nurse 12/29/22
--- OUTSIDE RECORDS SUMMARY | 2025-04-13 14:35 | XMS_ITS | Clinical Summary ---
Author Organization [address] Address [address] [place] [address] [place] [address] Phone Care Team Providers Care Clay Worker Name Role Phone Frank Berry MD Primary [...] mouth 2 (two) times a day. Active valsartan (DIOVAN) 40 mg tablet Take 1 tablet (40 mg total) by mouth 1 (one) time each day. 90 each 5 Active zolpidem (AMBIEN) 10 mg tablet Take 1 tablet (10 mg total) by mouth 1 (one) time each day. Max Daily Amount: 10 mg 0 Active rosuvastatin (CRESTOR) 10 mg tablet TAKE 1 TABLET BY MOUTH 1 TIME EACH DAY. 90 tablet 1 5 Active rosuvastatin (CRESTOR) 10 mg tablet Take 1 tablet (10 mg total) by mouth 1 (one) time each day. 90 each 1 4 04/05/20 Discontinued Active Problems Problem Noted Date Diagnosed Date [...] (BMI) of 36.0 to 36.9 in adult ([facility] V24, [facility] V28) 06/18/2024 Adenoma of colon 12/28/2023 Overview (06/18/2024): History of adenoma greater than 10 mm. Last colonoscopy 03/2021, follow-up 5 years Anxiety and depression 12/24/2023 Gastroesophageal reflux disease 12/24/2023 Low magnesium level 12/24/2023 Other hyperlipidemia 12/24/2023 Primary hypertension 12/24/2023 PTSD (post-traumatic stress disorder) 12/24/2023 Seizures ([facility] V24, [facility] V28) 12/24/2023 Resolved Problems Problem Noted Date Diagnosed Date Resolved Date Vitamin B12 deficiency 12/24/202308/01 Vitamin D deficiency 12/24/2023 024 Encounters Date Type Department Care Team Description 04/10/2025 10:30 AM EDT Treatment Pelvic Floor Rehabilitation - [address] [phone] Yessica Sanchez PT Urinary incontinence, unspecified type (Primary Dx); Constipation, unspecified constipation type; Urgency of urination; Pelvic pain; Muscle spasm; Muscle weakness 03/17/[address] [phone] Floyd Romero MD 03/15/2025 3:09 PM EDT - 03/15/2025 11:59 PM EDT Hospital Encounter [address] [phone] Annual wellness visit; Routine general medical examination at a health care facility; Right hip pain Discharge Disposition: Home or Self Care 03/15/2025 3:09 PM EDT - 03/15/2025 11:59 PM EDT Hospital Encounter [address] [phone] Annual wellness visit; Routine general medical examination at a health care facility; Chronic low back pain, unspecified back pain laterality, unspecified whether sciatica present Discharge Disposition: Home or Self Care 03/15/2025 2:00 PM EDT Office Visit [address] [phone] Frank Berry MD Annual wellness visit (Primary [...] cancer; Family history of pancreatic cancer; Seizures ([facility] V24, [facility] V28); Mild cognitive impairment; Other hyperlipidemia; Anxiety and depression 01/13/2025 1:30 PM EDT Treatment Pelvic Floor [address] [phone] Yessica Sanchez PT Urinary incontinence, unspecified type [...] Vitamin D deficiency 12/24/2023 Epilepsy (CMS/HCC V24, [facility] V28) Stroke ([facility] V24, [facility] V28) Family History Medical History Relation Name Comments Hypertension Brother back issues Celiac disease Daughter Alicja Hypertension Father Johm Prostate cancer Father Chasity HTN Pancreatic cancer [...] Smear 09/07/2025 Postponed from 1986 (Patient Refused) Breast Cancer Screening 03/14/2026 03/14/2024, [...] 03/14/2025 Pneumococcal Vaccine: 50+ Years Completed 03/15/2025 Zoster Vaccines Completed 03/30/2025, 07/08/2021 HIB Vaccines Aged Out No longer eligi [...] this topic Medical Devices Implanted Type Area Shoe Folder Device Identifier Shelf Expiration Date Model / Serial / Lot Surgiflo Hemostatic Matrix [facility] [id number] Implanted:Qty : 2 on 08/09/2021 by Andrea Polanco DO Implants N/A: Spine Cervical [facility] [employer] 11/04/2022 2991 / / [id number] Size 5 Standard Tapered Stem Cementless Implanted:Qty : 1 on 12/29/2022 by Clifton Esteban MD Joints Right: Hip [id number] 10/01/2027 / / [id number] +4 Femoral Head Implanted:Qty : 1 on 12/29/2022 by Clifton Esteban MD Joints Right: Hip [id number] 07/04/2026 / / [id number] Description:Renata 36mm +4mm Spacer Vikos 14.5x11.5x8mm 7d Stry-Spin [id number]-8 19273 - [id number] Implanted:Qty : 1 on 08/09/2021 by Andrea Polanco DO N/A: Spine Cervical [employer] 06/12/2025 2504-214 08L / [id number] / Spacer Vikos 14.5x11.5x7mm 7d Stry-Spin [id number] 89762 - [id number] Implanted:Qty : 1 on 08/09/2021 by Andrea Polanco DO N/A: Spine Cervical [employer] 10/24/2025 2504-214 07L / [id number] / Spacer Vikos 14.5x11.5x7mm 7d Stry-Spin [id number] 80317 - [id number] Implanted:Qty : 1 on 08/09/2021 by Andrea Polanco DO N/A: Spine Cervical [employer] 08/02/2025 2504-214 07L / [id number] / Plate Ellsworth 57mm 3 Level Bone Stry-K2m [id number] Implanted:Qty : 1 on 08/09/2021 by Andrea Polanco DO N/A: Spine Cervical [employer] [id number] 57V / / Screw Ellsworth Self-Start 4x16mm Stry-K2m [id number]- [id number] Implanted:Qty : 7 on 08/09/2021 by Andrea Polanco DO N/A: Spine Cervical [employer] 8801-040 16DA / / Screw Ellsworth 16mm 4.5mm Self St Stry-Howm [id number]- [id number] Implanted:Qty : 1 on 08/09/2021 by Andrea Polanco DO N/A: Spine Cervical [employer] 8801-045 16DA / / Screw Marie 6.5x20mm Crng-Manu [id number] 6 Implanted:Qty : 1 on 12/29/2022 by Clifton Esteban MD Right: Hip [employer] [id number] 10/02/2027 321.02 0 / / [id number] Marie Liner Ecima Neutral Offset Implanted:Qty : 1 on 12/29/2022 by Clifton Esteban MD Right: Hip [employer] 10/29/2027 322.03.6 36 / / [id number] Hip Cup Marie Tpr 52mm Sz3 Crng-Manu [id number] 6960 Implanted:Qty : 1 on 12/29/2022 by Clifton Esteban MD Right: Hip [employer] [id number] 10/13/2027 321.03 .3 52 / / [id number] Screw Marie 6.5x25mm Crng-Manu [id number] 7 Implanted:Qty : 1 on 12/29/2022 by Clifton Esteban MD Right: Hip [employer] [id number] 09/02/2027 321.02 5 / / [id number] Procedures Procedure Name Priority Date/Time Associated Diagnosis [...] visit Routine general medical examination at a [facility] care facility LIPID PANEL WITH REFLEX TO [...] phosphatase, bone specific (03/16/2025 1:11 PM EDT) Alkaline Phosphatase Bone 14.2 5.6 - 29.0 ug/L 03/20/2025 2:49 PM EDT [facility] Comment: Liver alkaline phosphatase can affect the measurement of bone specific alkaline phosphatase in this assay. Each 100 U/L of liver alkaline phosphatase contributes an additional 2.5 to 5.8 ug/L to the bone specific alkaline phosphatase result. Test performed at [facility], [address] , [place] [address] Ping Spencer MD, PhD - Api Product Manager Blood Venous blood specimen / Unknown Venipuncture / Unknown 03/16/2025 1:11 PM EDT 03/16/2025 1:11 PM EDT Frank Berry MD LAB BLOOD ORDERABLES Final Result [facility] [address] [place] [address] * Vitamin D 25 hydroxy (03/16/2025 1:11 PM EDT) Vit D, 25-Hydroxy 33.6 30.0 - 80.0 ng/mL LAB CHEMISTRY METHOD 03/16/2025 6:31 PM EDT [facility] Blood Venous blood specimen / Unknown Venipuncture / Unknown 03/16/2025 1:11 PM EDT 03/16/2025 1:11 PM EDT Frank Berry MD LAB BLOOD ORDERABLES Final Result [facility] [address] [place] [address], [place] [phone] * (ABNORMAL) Alkaline phosphatase (03/16/2025 1:11 PM EDT) Alkaline Phosphatase 135(H) 42 - 121 unit/L LAB CHEMISTRY METHOD 03/16/2025 5:42 PM EDT [facility] Blood Venous blood specimen / Unknown Venipuncture / Unknown 03/16/2025 1:11 PM EDT 03/16/2025 1:11 PM EDT Frank Berry MD LAB BLOOD ORDERABLES Final Result Performing Organization Address City/[facility]/ZIP Co de Phone Number [facility] [address] [place] [address], [place] [phone] * Thyroid stimulating hormone with reflex to free t4 and free t3 (03/16/2025 8:24 AM EDT) [facility] TSH 1.35 0.40 - 4.00 mcIU/mL LAB CHEMISTRY METHOD 03/16/2025 12:32 PM EDT [facility] Blood Venous blood specimen / Unknown Venipuncture / Unknown 03/16/2025 8:24 AM EDT 03/16/2025 8:24 AM EDT Frank Berry MD LAB BLOOD ORDERABLES Final Result [facility] [address] [place] [address], [place] [phone] * Lipid panel with reflex to direct LDL (03/16/2025 8:24 AM EDT) Cholesterol 194 0 - 200 mg/dL LAB CHEMISTRY METHOD 03/16/2025 12:05 PM EDT [facility] Triglycerides 114 0 - 150 mg/dL LAB CHEMISTRY METHOD 03/16/2025 12:05 PM EDT [facility] HDL 98 >=40 mg/dL LAB CHEMISTRY METHOD 03/16/2025 12:05 PM EDT [facility] LDL Calculated 73 0 - 100 mg/dL LAB CHEMISTRY METHOD 03/16/2025 12:05 PM EDT [facility] VLDL Cholesterol Jai 22.8 mg/dL LAB CHEMISTRY METHOD 03/16/2025 12:05 PM T [facility] Non HDL Chol. (LDL+VLDL) 96 <145 mg/dL LAB CHEMISTRY METHOD 03/16[facility]2025 [facility] Chol/HDL Ratio 2.0 0.0 - 4.4 LAB CHEMISTRY METHOD 03/16/2025 12:05 PM T [facility] Blood Venous blood specimen / Unknown Venipuncture / Unknown 03/16/2025 8:24 AM EDT 03/16/2025 8:24 AM EDT us Frank Berry MD LAB BLOOD ORDERABLES Final Result [facility] [address] [place] [address], * (ABNORMAL) CBC auto differential (03/16/2025 8:24 AM EDT) WBC 7.3 4.8 - 10.8 K/mcL LAB HEMETOLOGY METHOD 03/16/2025 10:37 AM EDT [facility] RBC 4.70 3.80 - 4.80 M/mcL LAB HEMETOLOGY METHOD 03/16/2025 10:37 AM EDT [facility] Hemoglobin 13.2 11.5 - 16.0 g/dL LAB HEMETOLOGY METHOD 03/16/2025 10:37 AM [facility] Hematocrit 41.5 35.0 - 47.0 % LAB HEMETOLOGY METHOD 03/16/2025 10:37 AM [facility] MCV 89.2 79.0 - 98.0 FL LAB HEMETOLOGY METHOD 03/16/2025 10:37 AM [facility] MCH 28.4 27.0 - 32.0 pcg LAB HEMETOLOGY METHOD 03/16/2025 10:37 AM [facility] MCHC 31.8(L) 32.0 - 37.0 g/dL LAB HEMETOLOGY METHOD 03/16/2025 10:37 AM [facility] RDW 12.6 11.0 - 15.0 % LAB HEMETOLOGY METHOD 03/16/2025 10:37 AM [facility] Platelets 219 130 - 400 K/mcL LAB HEMETOLOGY METHOD 03/16/2025 10:37 AM [facility] MPV 9.0 7.0 - 11.0 FL LAB HEMETOLOGY METHOD 03/16/2025 10:37 AM [facility] NRBC 0.0 <1.0 % LAB HEMETOLOGY METHOD 03/16/2025 10:37 AM [facility] NRBC Absolute 0.00 <0.10 K/mcL LAB HEMETOLOGY METHOD 03/16/2025 10:37 AM [facility] Neutrophils Relative 59.6 % LAB HEMETOLOGY METHOD 03/16/2025 10:37 AM [facility] Lymphocytes Relative 28.7 % LAB HEMETOLOGY METHOD 03/16/2025 10:37 AM [facility] Monocytes Relative 9.1 % LAB HEMETOLOGY METHOD 03/16/2025 10:37 AM [facility] Eosinophils Relative 1.8 % LAB HEMETOLOGY METHOD 03/16/2025 10:37 AM EDT [facility] Basophils Relative 0.5 % LAB HEMETOLOGY METHOD 03/16/2025 10:37 AM EDT [facility] Immature Granulocytes Relative 0.3 % LAB HEMETOLOGY METHOD 03/16/2025 10:37 AM EDT [facility] Neutrophils Absolute 4.37 1.50 - 7.00 K/mcL LAB HEMETOLOGY METHOD 03/16/2025 10:37 AM EDT [facility] Lymphocytes Absolute 2.11 1.00 - 5.00 K/mcL LAB HEMETOLOGY METHOD 03/16/2025 10:37 AM EDT [facility] Monocytes Absolute 0.67 0.20 - 1.00 K/mcL LAB HEMETOLOGY METHOD 03/16/2025 10:37 AM EDT [facility] Eosinophils Absolute 0.13 0.00 - 0.50 K/mcL LAB HEMETOLOGY METHOD 03/16/2025 10:37 AM EDT [facility] Basophils Absolute 0.04 0.00 - 0.20 K/mcL LAB HEMETOLOGY METHOD 03/16/2025 10:37 AM EDT [facility] Immature Granulocytes Absolute 0.02 0.00 - 0.03 K/mcL LAB HEMETOLOGY METHOD 03/16/2025 10:37 AM EDT [facility] Blood Venous blood specimen / Unknown Venipuncture / Unknown 03/16/2025 8:24 AM EDT 03/16/2025 8:24 AM EDT us Frank Berry MD LAB BLOOD ORDERABLES Final Result [facility] [address] [place] [address], * Phosphorus (03/16/2025 8:24 AM EDT) Phosphorus 3.9 2.5 - 4.5 mg/dL LAB CHEMISTRY METHOD 03/16/2025 12:03 PM EDT [facility] Blood Venous blood specimen / Unknown Venipuncture / Unknown 03/16/2025 8:24 AM EDT 03/16/2025 8:24 AM EDT us Frank Berry MD LAB BLOOD ORDERABLES Final Result [facility] [address] [place] [address], [place] [phone] * Magnesium (03/16/2025 8:24 AM EDT) [facility] Magnesium 2.6 1.9 - 2.6 mg/dL LAB CHEMISTRY METHOD 03/16/2025 11:32 AM EDT [facility] Blood Venous blood specimen / Unknown Venipuncture / Unknown 03/16/2025 8:24 AM EDT 03/16/2025 8:24 AM EDT us Frank Berry MD LAB BLOOD ORDERABLES Final Result Performing Organization Address City/[facility]/ZIP Co de Phone Number [facility] [address] [place] [address], [place] [phone] * Vitamin B12 (03/16/2025 8:24 AM EDT) [facility] Vitamin B-12 884 250 - 900 pcg/mL LAB CHEMISTRY METHOD 03/16/2025 12:03 PM EDT [facility] Blood Venous blood specimen / Unknown Venipuncture / Unknown 03/16/2025 8:24 AM EDT 03/16/2025 8:24 AM EDT us Frank Berry MD LAB BLOOD ORDERABLES Final Result [facility] [address] [place] [address], [place] [phone] * (ABNORMAL) Comprehensive metabolic panel (03/16/2025 8:24 AM EDT) Sodium 141 133 - 145 mmol/L LAB CHEMISTRY METHOD 03/16/2025 12:03 PM [facility] Potassium 3.9 3.5 - 5.5 mmol/L LAB CHEMISTRY METHOD 03/16/2025 12:03 PM [facility] Chloride 106 96 - 110 mmol/L LAB CHEMISTRY METHOD 03/16/2025 12:03 PM [facility] CO2 30 21 - 32 mmol/L LAB CHEMISTRY METHOD 03/16/2025 12:03 PM [facility] Anion Gap 5 3 - 11 LAB CHEMISTRY METHOD 03/16/2025 12:03 PM [facility] Glucose 95 70 - 100 mg/dL LAB CHEMISTRY METHOD 03/16/2025 12:03 PM [facility] BUN 12 5 - 25 mg/dL LAB CHEMISTRY METHOD 03/16/2025 12:03 PM [facility] Creatinine 0.90 0.50 - 1.10 mg/dL LAB CHEMISTRY METHOD 03/16/2025 12:03 PM [facility] eGFR 74 >=60 mL/min/1. 73m2 LAB CHEMISTRY METHOD 03/16/2025 12:03 PM [facility] Comment:Calculation based on the Chronic Kidney Disease Epidemiology Collaboration (CKD-EPI) equation refit without adjustment for race. BUN/Creatinine Ratio 13.3 LAB CHEMISTRY METHOD 03/16/2025 12:03 PM [facility] Calcium 9.5 8.5 - 10.5 mg/dL LAB CHEMISTRY METHOD 03/16/2025 12:03 PM [facility] AST (SGOT) 18 10 - 42 unit/L LAB CHEMISTRY METHOD 03/16/2025 12:03 PM EDT [facility] ALT (SGPT) 25 10 - 60 unit/L LAB CHEMISTRY METHOD 03/16/2025 12:03 PM EDT [facility] Alkaline Phosphatase 140(H) 42 - 121 unit/L LAB CHEMISTRY METHOD 03/16/2025 12:03 PM EDT [facility] Total Protein 7.2 6.0 - 8.0 g/dL LAB CHEMISTRY METHOD 03/16/2025 12:03 PM EDT [facility] Albumin 4.2 3.2 - 5.0 g/dL LAB CHEMISTRY METHOD 03/16/2025 12:03 PM EDT [facility] Total Bilirubin 0.4 0.0 - 1.4 mg/dL LAB CHEMISTRY METHOD 03/16/2025 12:03 PM EDT [facility] Blood Venous blood specimen / Unknown Venipuncture / Unknown 03/16/2025 8:24 AM EDT 03/16/2025 8:24 AM EDT us Frank Berry MD LAB BLOOD ORDERABLES Final Result [facility] [address] [place] [address], [place] [phone] * XR Hip 2-3 Views Right (03/15/2025 [...] Signed Date: 03/15/2025 16:10 ET Workstation ID: [id number] Transcribed By: Self Edit Transcribed Date: 03/15/2025 [...] Signed Date: 03/15/2025 16:10 ET Workstation ID: [id number] Transcribed By: Self Edit Transcribed Date: 03/15/2025 [...] Signed Date: 03/15/2025 16:08 ET Workstation ID: [id number] Transcribed By: Self Edit Transcribed Date: 03/15/2025 [...] posterior fusion hardware with titanium cages from [id number]. There is mild curvature of the [...] Signed Date: 03/15/2025 16:08 ET Workstation ID: [id number] Transcribed By: Self Edit Transcribed Date: 03/15/2025 16:06 ET us Frank Berry MD IMG XR PROCEDURES Final Res ult * HIV 1,2 antibody, p24 antigen with reflex to differentiation (08/12/2024 7:54 AM EST) HIV Combo AB/AG Negative Negative LAB CHEMISTRY METHOD 08/12/2024 10:52 AM EST [facility] Blood Venous blood specimen / Unknown Venipuncture / Unknown 08/12/2024 7:54 AM EST 08/12/2024 7:54 AM EST Narrative [facility] - 08/12/2024 10:52 AM EST [...] MD LAB BLOOD ORDERABLES F inal Result [facility] [address] [place] [address], * SCREENING MAMMOGRAPHY BI 2-VIEW BREAST INC [...] Relevant to Health Maintenance Insurance MEDICAID - [place] [employer] MEDICARE Care Teams Clay Worker Relationship Specialty Start Date End Date Frank Berry MD [address] [place] [address] PCP - General Internal Medicine 03/15/25
--- OUTSIDE RECORDS SUMMARY | 2025-04-13 14:35 | XMS_ITS | Patient Health Record ---
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 [address] 09/21/2024 Aleisha Perica Plantar fibromatosis M72.[address] [address] 06/27/2024 Aleisha Perica [address] [address] 07/13/2024 [facility] [address] 07/13/2024 Aleishawillam Mahna Assessments Encounter Date Diagnosis (ICD Code) Assessment [...] Date Coverage End Date [employer] Medicare [id number] [address] [address] [place] [address] [id number] JonoNina trejo Self - patient is the insured Medical (General) History Medical History History ICD Code Arthritis Back,Hip,and Knee pain Depression Seizures High Blood Pressure Numbness Chicken pox Joint implants/screws Surgical History Surgery Date(Month/Year) hip replacement back fusions endoscopy 07/12/24 colonoscopy 07/08/24
--- OUTSIDE RECORDS SUMMARY | 2025-04-13 14:35 | XMS_ITS | Encounter Summary ---
Author Organization [facility] Address [address] [place] [address] Care Team Providers Care Bowl Sander Name Role Phone Diana Martinez Primary Care Provider [phone] Carl Goodman MD Unavailable Osmar Chicas MD Unavailable [phone] Encounter Details Date Type Department Care Team (Late st Contact Info) Description 10/13/2023 Scanned Document [facility] Department of Internal Medicine [place] [address] [place] [address] Diana Martinez PA [address] [place], [place] [id number] Social History Tobacco Use Types Packs/Day Years [...] on filedocumented in this encounter Care Teams Bowl Sander Relationship Specialty Start Date End Date Diana Martinez PA [address] [place] [address] PCP - General 01/03/22 Carl Goodman MD [address] [address] Surgery, Orthopedic 01/03/22 Osmar Chicas MD [address] [place] [id number] Cardiovascular Disease 01/03/22 documented as of this encounter
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
== END 2025-04-13 15:16 | disposition home or self-care (01) ==
LOC: HO.HOP 14:32
PROVIDERS: PCP Internal Medicine; Visit Provider Clinical Nurse Specialist Psychiatric/Mental Health
DX: F33.1 Major depressive disorder, recurrent, moderate (principal); F41.1 Generalized anxiety disorder; F43.12 Post-traumatic stress disorder, chronic
CPT/HCPCS: 99214

== ENCOUNTER → 2025-04-13 14:32 | Outpatient (BNVA) | payer MEDICARE, MEDICAID, SELFPAY | PROVIDERS: PCP Internal Medicine; Visit Provider Clinical Nurse Specialist Psychiatric/Mental Health | DX: F33.1 Major depressive disorder, recurrent, moderate (principal); F41.1 Generalized anxiety disorder; F43.12 Post-traumatic stress disorder, chronic | CPT/HCPCS: 99212 ==

== ENCOUNTER 2025-04-20 11:01 | Outpatient (AMB) | payer MEDICARE, MEDICAID, SELFPAY ==
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
--- OUTSIDE RECORDS SUMMARY | 2025-04-20 12:10 | XMS_ITS | Encounter Summary ---
Author Organization [facility] Address [address] [place] [id number] Care Team Providers Care Post Anesthesia Nurse Name Role Phone Diana Martinez Primary Care Provider [phone] Carl Goodman MD Unavailable Osmar Chicas MD Unavailable [phone] Encounter Details Date Type Department Care Team (Late st Contact Info) Description 10/13/2023 Scanned Document [facility] Department of Internal Medicine [place] [address] [place] [address] Diana Martinez PA [address] [place], [place] [id number] Social History Tobacco Use Types Packs/Day Years [...] on filedocumented in this encounter Care Teams Post Anesthesia Nurse Relationship Specialty Start Date End Date Diana Martinez PA [address] [place] [address] PCP - General 01/03/22 Carl Goodman MD [address] [address] Surgery, Orthopedic 01/03/22 Osmar Chicas MD [address] [place] [id number] Cardiovascular Disease 01/03/22 documented as of this encounter
--- OUTSIDE RECORDS SUMMARY | 2025-04-20 12:10 | XMS_ITS | Clinical Summary ---
Author Organization [address] Address [address] [place] [address] [place]ix [address] Phone Care Team Providers Care Seat Cover Maker Name Role Phone Frank Berry MD Primary [...] (BMI) of 36.0 to 36.9 in adult ([facility] V24, [facility] V28) 06/18/2024 Adenoma of colon 12/28/2023 Overview (06/18/2024): History of adenoma greater than 10 mm. Last colonoscopy 03/2021, follow-up 5 years Anxiety and depression 12/24/2023 Gastroesophageal reflux disease 12/24/2023 Low magnesium level 12/24/2023 Other hyperlipidemia 12/24/2023 Primary hypertension 12/24/2023 PTSD (post-traumatic stress disorder) 12/24/2023 Seizures ([facility] V24, [facility] V28) 12/24/2023 Resolved Problems Problem Noted Date Diagnosed Date Resolved Date Vitamin B12 deficiency 12/24/202308/01 Vitamin D deficiency 12/24/2023 024 Encounters Date Type Department Care Team Description 04/10/2025 10:30 AM EDT Treatment Pelvic Floor Rehabilitation - [address] [phone] Yessica Sanchez PT Urinary incontinence, unspecified type (Primary Dx); Constipation, unspecified constipation type; Urgency of urination; Pelvic pain; Muscle spasm; Muscle weakness 03/17/[address] [phone] Floyd Romero MD 03/15/2025 3:09 PM EDT - 03/15/2025 11:59 PM EDT Hospital Encounter [address] [phone] Annual wellness visit; Routine general medical examination at a health care facility; Right hip pain Discharge Disposition: Home or Self Care 03/15/2025 3:09 PM EDT - 03/15/2025 11:59 PM EDT Hospital Encounter [address] [phone] Annual wellness visit; Routine general medical examination at a health care facility; Chronic low back pain, unspecified back pain laterality, unspecified whether sciatica present Discharge Disposition: Home or Self Care 03/15/2025 2:00 PM EDT Office Visit [address] [phone] Frank Berry MD Annual wellness visit (Primary [...] cancer; Family history of pancreatic cancer; Seizures ([facility] V24, [facility] V28); Mild cognitive impairment; Other hyperlipidemia; Anxiety and depression from Last 3 Months Immunizations Name Administration [...] deficiency 12/24/2023 Vitamin D deficiency 12/24/2023 Epilepsy ([facility] V24, [facility] V28) Stroke ([facility] V24, [facility] V28) Family History Medical History Relation Name [...] for your loved ones. For example, child guidance counselor or elderly care for an older adult? [...] this topic Medical Devices Implanted Type Area Exchange Specialist Device Identifier Shelf Expiration Date Model / Serial / Lot Surgiflo Hemostatic Matrix [id number] Implanted:Qty : 2 on 08/09/2021 by Andrea Polanco O, DO Implants N/A: Spine Cervical [facility] [employer] 11/04/2022 2991 / / [id number] Size 5 Standard Tapered Stem Cementless Implanted:Qty : 1 on 12/29/2022 by Clifton Esteban MD Joints Right: Hip [id number] 10/01/2027 / / [id number] +4 Femoral Head Implanted:Qty : 1 on 12/29/2022 by Clfiton Esteban MD Joints Right: Hip [id number] 07/04/2026 / / [id number] Description:Renata 36mm +4mm Spacer Vikos 14.5x11.5x8mm 7d Stry-Spin [id number] 68744 - [id number] Implanted:Qty : 1 on 08/09/2021 by Andrea Polanco DO N/A: Spine Cervical [employer] 06/12/2025 2504-214 08L / [id number] / Spacer Vikos 14.5x11.5x7mm 7d Stry-Spin [id number] 22044 - [id number] Implanted:Qty : 1 on 08/09/2021 by Andrea Polanco DO N/A: Spine Cervical [employer] 10/24/2025 2504-214 07L / [id number] / Spacer Vikos 14.5x11.5x7mm 7d Stry-Spin [id number]-6 33648 - [id number] Implanted:Qty : 1 on 08/09/2021 by Andrea Polanco DO N/A: Spine Cervical [employer] 08/02/2025 2504-214 07L / [id number] / Plate [place] 57mm 3 Level Bone Stry-K2m [id number] Implanted:Qty : 1 on 08/09/2021 by Andrea Polanco DO N/A: Spine Cervical [employer] [id number] 57V / / Screw [place] Self-Start 4x16mm Stry-K2m [id number]- [id number] Implanted:Qty : 7 on 08/09/2021 by Andrea Polanco DO N/A: Spine Cervical [employer] 8801-040 16DA / / Screw [place] 16mm 4.5mm Self St Stry-How [id number]- [id number] Implanted:Qty : 1 on 08/09/2021 by Andrea Polanco DO N/A: Spine Cervical [employer] 8801-045 16DA / / Screw Marie 6.5x20mm Crng-Manu [id number] 6 Implanted:Qty : 1 on 12/29/2022 by Clifton Esteban MD Right: Hip [employer] [id number] 10/02/2027 321.02 0 / [id number] Marie Liner Ecima Neutral Offset Implanted:Qty : 1 on 12/29/2022 by Clifton Esteban MD Right: Hip [employer] 10/29/2027 322.03.6 36 / / [id number] Hip Cup Marie Tpr 52mm Sz3 Crng-Manu [id number] 6960 Implanted:Qty : 1 on 12/29/2022 by Clifton Esteban MD Right: Hip [employer] [id number] 10/13/2027 321.03 .3 52 / / [id number] Screw Marie 6.5x25mm Crng-Manu 321.345-45099 7 Implanted:Qty : 1 on 12/29/2022 by Clifton Esteban MD Right: Hip [employer] [id number] 09/02/2027 321.02 5 / / [id number] Procedures Procedure Name Priority Date/Time Associated Diagnosis [...] visit Routine general medical examination at a [facility] care facility CBC AND DIFFERENTIAL Routine 03/16/2025 [...] phosphatase, bone specific (03/16/2025 1:11 PM EDT) [facility] Alkaline Phosphatase Bone 14.2 5.6 - 29.0 ug/L 03/20/2025 2:49 PM EDT [facility] Comment: Liver alkaline phosphatase can affect the measurement of bone specific alkaline phosphatase in this assay. Each 100 U/L of liver alkaline phosphatase contributes an additional 2.5 to 5.8 ug/L to the bone specific alkaline phosphatase result. Test performed at [facility], [address], [place] [address] Ping Spencer MD, PhD - Wet Crown Blocking Operator Blood Venous blood specimen / Unknown Venipuncture / Unknown 03/16/2025 1:11 PM EDT 03/16/2025 1:11 PM EDT Frank Berry MD LAB BLOOD ORDERABLES Final Result [facility] [address] [place] [address] * Vitamin D 25 hydroxy (03/16/2025 1:11 PM EDT) [facility] Vit D, 25-Hydroxy 33.6 30.0 - 80.0 ng/mL LAB CHEMISTRY METHOD 03/16/2025 6:31 PM EDT [facility] Blood Venous blood specimen / Unknown Venipuncture / Unknown 03/16/2025 1:11 PM EDT 03/16/2025 1:11 PM EDT Frank Berry MD LAB BLOOD ORDERABLES Final Result [facility] [address] [place] [address], [place] [phone] * (ABNORMAL) Alkaline phosphatase (03/16/2025 1:11 PM EDT) Alkaline Phosphatase 135(H) 42 - 121 unit/L LAB CHEMISTRY METHOD 03/16/2025 5:42 PM EDT [facility] Blood Venous blood specimen / Unknown Venipuncture / Unknown 03/16/2025 1:11 PM EDT 03/16/2025 1:11 PM EDT Frank Berry MD LAB BLOOD ORDERABLES Final Result Performing Organization Address [facility]/ZIP Co de Phone Number [facility] [address] [place] [address], [place] [phone] * Thyroid stimulating hormone with reflex to free t4 and free t3 (03/16/2025 8:24 AM EDT) [facility] TSH 1.35 0.40 - 4.00 mcIU/mL LAB CHEMISTRY METHOD 03/16/2025 12:32 PM EDT [facility] Blood Venous blood specimen / Unknown Venipuncture / Unknown 03/16/2025 8:24 AM EDT 03/16/2025 8:24 AM EDT Frank Berry MD LAB BLOOD ORDERABLES Final Result Performing Organization Address City/[facility]/ZIP Co de Phone Number [facility] [address] [place] [address], [place] [phone] * Lipid panel with reflex to direct LDL (03/16/2025 8:24 AM EDT) [facility] Cholesterol 194 0 - 200 mg/dL LAB CHEMISTRY METHOD 03/16/2025 12:05 PM EDT [facility] Triglycerides 114 0 - 150 mg/dL LAB CHEMISTRY METHOD 03/16/2025 12:05 PM EDT [facility] HDL 98 >=40 mg/dL LAB CHEMISTRY METHOD 03/16/2025 12:05 PM EDT [facility] LDL Calculated 73 0 - 100 mg/dL LAB CHEMISTRY METHOD 03/16/2025 12:05 PM EDT [facility] VLDL Cholesterol Jai 22.8 mg/dL LAB CHEMISTRY METHOD 03/16/2025 12:05 PM EDT [facility] Non HDL Chol. (LDL+VLDL) 96 <145 mg/dL LAB CHEMISTRY METHOD 03/16/2025 12:05 PM EDT [facility] Chol/HDL Ratio 2.0 0.0 - 4.4 LAB CHEMISTRY METHOD 03/16/2025 12:05 PM T [facility] Blood Venous blood specimen / Unknown Venipuncture / Unknown 03/16/2025 8:24 AM EDT 03/16/2025 8:24 AM EDT us Frank Berry MD LAB BLOOD ORDERABLES Final Result [facility] [address] [place] [address], [place] [phone] * (ABNORMAL) CBC auto differential (03/16/2025 8:24 AM EDT) WBC 7.3 4.8 - 10.8 K/[facility] HEMETOLOGY METHOD 03/16/2025 10:37 AM EDT [facility] RBC 4.70 3.80 - 4.80 M/[facility] LAB HEMETOLOGY METHOD 03/16/2025 10:37 AM EDT [facility] Hemoglobin 13.2 11.5 - 16.0 g/dL LAB HEMETOLOGY METHOD 03/16/2025 10:37 AM EDT [facility] Hematocrit 41.5 35.0 - 47.0 % LAB HEMETOLOGY METHOD 03/16/2025 10:37 AM [facility] MCV 89.2 79.0 - 98.0 FL LAB HEMETOLOGY METHOD 03/16/2025 10:[facility] MCH 28.4 27.0 - 32.0 pcg LAB HEMETOLOGY METHOD 03/16/2025 10:37 AM [facility] MCHC 31.8(L) 32.0 - 37.0 g/dL LAB HEMETOLOGY METHOD 03/16/2025 10:37 AM [facility] RDW 12.6 11.0 - 15.0 % LAB HEMETOLOGY METHOD 03/16/2025 10:37 AM [facility] Platelets 219 130 - 400 K/mcL LAB HEMETOLOGY METHOD 03/16/2025 10:37 AM [facility] MPV 9.0 7.0 - 11.0 FL LAB HEMETOLOGY METHOD 03/16/2025 10:37 AM [facility] NRBC 0.0 <1.0 % LAB HEMETOLOGY METHOD 03/16/2025 10:37 AM [facility] NRBC Absolute 0.00 <0.10 K/mcL LAB HEMETOLOGY METHOD 03/16/2025 10:37 AM [facility] Neutrophils Relative 59.6 % LAB HEMETOLOGY METHOD 03/16/2025 10:37 AM [facility] Lymphocytes Relative 28.7 % LAB HEMETOLOGY METHOD 03/16/2025 10:37 AM [facility] Monocytes Relative 9.1 % LAB HEMETOLOGY METHOD 03/16/2025 10:37 AM [facility] Eosinophils Relative 1.8 % LAB HEMETOLOGY METHOD 03/16/2025 10:37 AM [facility] Basophils Relative 0.5 % LAB HEMETOLOGY METHOD 03/16/2025 10:37 AM [facility] Immature Granulocytes Relative 0.3 % LAB HEMETOLOGY METHOD 03/16/2025 10:37 AM EDT [facility] Neutrophils Absolute 4.37 1.50 - 7.00 K/[facility] LAB HEMETOLOGY METHOD 03/16/2025 10:37 AM EDT [facility] Lymphocytes Absolute 2.11 1.00 - 5.00 K/mcL LAB HEMETOLOGY METHOD 03/16/2025 10:37 AM EDT [facility] Monocytes Absolute 0.67 0.20 - 1.00 K/[facility] HEMETOLOGY METHOD 03/16/2025 10:37 AM EDT [facility] Eosinophils Absolute 0.13 0.00 - 0.50 K/[facility] HEMETOLOGY METHOD 03/16/2025 10:37 AM EDT [facility] Basophils Absolute 0.04 0.00 - 0.20 K/mcL LAB HEMETOLOGY METHOD 03/16/2025 10:37 AM EDT [facility] Immature Granulocytes Absolute 0.02 0.00 - 0.03 K/[facility] HEMETOLOGY METHOD 03/16/2025 10:37 AM EDT [facility] Blood Venous blood specimen / Unknown Venipuncture / Unknown 03/16/2025 8:24 AM EDT 03/16/2025 8:24 AM EDT us Frank Berry MD LAB BLOOD ORDERABLES Final Result [facility] [address] [place] [address], * Phosphorus (03/16/2025 8:24 AM EDT) Phosphorus 3.9 2.5 - 4.5 mg/dL LAB CHEMISTRY METHOD 03/16/2025 12:03 PM EDT [facility] Blood Venous blood specimen / Unknown Venipuncture / Unknown 03/16/2025 8:24 AM EDT 03/16/2025 8:24 AM EDT Frank Berry MD LAB BLOOD ORDERABLES Final Result Performing Organization Address [facility]/ZIP Co de Phone Number [facility] [address] [place] [address], [place] [phone] * Magnesium (03/16/2025 8:24 AM EDT) Pathologist [facility] Magnesium 2.6 1.9 - 2.6 mg/dL LAB CHEMISTRY METHOD 03/16/2025 11:32 AM EDT [facility] Blood Venous blood specimen / Unknown Venipuncture / Unknown 03/16/2025 8:24 AM EDT 03/16/2025 8:24 AM EDT Frank Berry MD LAB BLOOD ORDERABLES Final Result Performing Organization Address [facility]/[place] Co de Phone Number [facility] [address] [place] [address], [place] [phone] * Vitamin B12 (03/16/2025 8:24 AM EDT) [facility] Vitamin B-12 884 250 - 900 pcg/mL LAB CHEMISTRY METHOD 03/16/2025 12:03 PM EDT [facility] Blood Venous blood specimen / Unknown Venipuncture / Unknown 03/16/2025 8:24 AM EDT 03/16/2025 8:24 AM EDT us Frank Berry MD LAB BLOOD ORDERABLES Final Result Performing Organization Address City/[facility]/ZIP Co de Phone Number [facility] [address] [place] [address], [place] [phone] * (ABNORMAL) Comprehensive metabolic panel (03/16/2025 8:24 AM EDT) Pathologist [facility] Sodium 141 133 - 145 mmol/L LAB CHEMISTRY METHOD 03/16/2025 12:03 PM [facility] Potassium 3.9 3.5 - 5.5 mmol/L LAB CHEMISTRY METHOD 03/16/2025 12:03 PM [facility] Chloride 106 96 - 110 mmol/L LAB CHEMISTRY METHOD 03/16/2025 12:03 PM [facility] CO2 30 21 - 32 mmol/L LAB CHEMISTRY METHOD 03/16/2025 12:03 PM [facility] Anion Gap 5 3 - 11 LAB CHEMISTRY METHOD 03/16/2025 12:03 PM [facility] Glucose 95 70 - 100 mg/dL LAB CHEMISTRY METHOD 03/16/2025 12:03 PM [facility] BUN 12 5 - 25 mg/dL LAB CHEMISTRY METHOD 03/16/2025 12:03 PM [facility] Creatinine 0.90 0.50 - 1.10 mg/dL LAB CHEMISTRY METHOD 03/16/2025 12:03 PM [facility] eGFR 74 >=60 mL/min/1. 73m2 LAB CHEMISTRY METHOD 03/16/2025 12:03 PM [facility] Comment:Calculation based on the Chronic Kidney Disease Epidemiology Collaboration (CKD-EPI) equation refit without adjustment for race. BUN/Creatinine Ratio 13.3 LAB CHEMISTRY METHOD 03/16/2025 12:03 PM [facility] Calcium 9.5 8.5 - 10.5 mg/dL LAB CHEMISTRY METHOD 03/16/2025 12:03 PM [facility] AST (SGOT) 18 10 - 42 unit/L LAB CHEMISTRY METHOD 03/16/2025 12:03 PM [facility] ALT (SGPT) 25 10 - 60 unit/L LAB CHEMISTRY METHOD 03/16/2025 12:03 PM [facility] Alkaline Phosphatase 140(H) 42 - 121 unit/L LAB CHEMISTRY METHOD 03/16/2025 12:03 PM EDT [facility] Total Protein 7.2 6.0 - 8.0 g/dL LAB CHEMISTRY METHOD 03/16/2025 12:03 PM EDT [facility] Albumin 4.2 3.2 - 5.0 g/dL LAB CHEMISTRY METHOD 03/16/2025 12:03 PM EDT [facility] Total Bilirubin 0.4 0.0 - 1.4 mg/dL LAB CHEMISTRY METHOD 03/16/2025 12:03 PM EDT [facility] Blood Venous blood specimen / Unknown Venipuncture / Unknown 03/16/2025 8:24 AM EDT 03/16/2025 8:24 AM EDT us Frank Berry MD LAB BLOOD ORDERABLES Final Result [facility] [address] [place] [address], * XR Hip 2-3 Views Right (03/15/2025 [...] Signed Date: 03/15/2025 16:10 ET Workstation ID: [id number] Transcribed By: Self Edit Transcribed Date: 03/15/2025 [...] Yusra Gomes Reviewed and Electronically Signed By: uYsra Gomes Signed Date: 03/15/2025 16:10 ET Workstation ID: [id number] Transcribed By: Self Edit Transcribed Date: 03/15/2025 [...] Signed Date: 03/15/2025 16:08 ET Workstation ID: [id number] Transcribed By: Self Edit Transcribed Date: 03/15/2025 [...] posterior fusion hardware with titanium cages from [id number]. There is mild curvature of the [...] Signed Date: 03/15/2025 16:08 ET Workstation ID: [id number] Transcribed By: Self Edit Transcribed Date: 03/15/2025 16:06 ET us Frank Berry MD IMG XR PROCEDURES Final Res ult * HIV 1,2 antibody, p24 antigen with reflex to differentiation (08/12/2024 7:54 AM EST) HIV Combo AB/AG Negative Negative LAB CHEMISTRY METHOD 08/12/2024 10:52 AM EST [facility] Blood Venous blood specimen / Unknown Venipuncture / Unknown 08/12/2024 7:54 AM EST 08/12/2024 7:54 AM EST Narrative [facility] - 08/12/2024 10:52 [...] MD LAB BLOOD ORDERABLES F inal Result [facility] [address] [place] [address], * SCREENING MAMMOGRAPHY BI 2-VIEW BREAST INC [...] Hepatitis C Screening abstracted Historical Provider MD HEALTH MAINTENANCE Final Result * Colonoscopy (03/18/2021) Colonoscopy no interpretation , abstracted Anatomical Region Laterality Modality Other Historical Provider HEALTH MAINTENANCE Final Result from Last 3 Months or Most Recently Relevant to Health Maintenance Insurance MEDICAID - [place] [employer] MEDICARE Care Teams Seat Cover Maker Relationship Specialty Start Date End Date Frank Berry MD [address] [place] [address] PCP - General Internal Medicine 03/15/25
--- OUTSIDE RECORDS SUMMARY | 2025-04-20 12:11 | XMS_ITS | Patient Health Record ---
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 [address] 09/21/2024 Aleisha Perica Plantar fibromatosis M72.[address] [address] 06/27/2024 Aleisha Perica [address] [address] 07/13/2024 [facility] [place] [address] 07/13/2024 Aleishawillam Mahan Assessments Encounter Date Diagnosis [...] Date Coverage End Date [employer] Medicare [id number] [address] [address] [place] [address] [id number] JonoNina trejo Self - patient is the insured Medical (General) History Medical History History ICD Code Arthritis Back,Hip,and Knee pain Depression Seizures High Blood Pressure Numbness Chicken pox Joint implants/screws Surgical History Surgery Date(Month/Year) hip replacement back fusions endoscopy 07/12/24 colonoscopy 07/08/24
--- OUTSIDE RECORDS SUMMARY | 2025-04-20 12:11 | XMS_ITS | Clinical Summary ---
Author Organization [facility] Address [address] [place] [address] Care Team Providers Care Slip Cover Cutter Name Role Phone Diana Martinez Primary Care Provider +1- [phone] Allergies Active Allergy Reactions Criticality Noted Date [...] this topic Medical Devices Implanted Type Area Cellophane Tester Device Identifier Shelf Expiration Date Model / Serial / Lot Surgiflo Hemostatic Matrix [id number] [id number] - [id number] Implanted:Qty : 2 on 08/09/2021 by Andrea Polanco DO at [facility] Hemostatic Agent Anterior: Spine Cervical [facility] [employer] 11/04/2022 2991 / / [id number] 5 Standard Tapered Stem Cementless Implanted:Qty : 1 on 12/29/2022 by Clifton Esteban MD at [facility] Total Joint Right: Hip [id number] 10/01/2027 / / [id number] 36 +4 Femoral Head Implanted:Qty : 1 on 12/29/2022 by Clifton Esteban MD at [facility] Total Joint Right: Hip [id number] 07/04/2026 / / [id number] Description:Renata 36mm +4mm Acetabular Liner 36mm X 52\54 10 Hooded E-Max - [id number] - [id number] Implanted:Qty : 1 on 04/07/2018 by Bairon Adame MD at [facility] Left: Hip RENOVI 09/19/2022 1523-365 -254 / / [id number] Cancellous Bone Screw 6.5mm X 20mm - [id number] - [id number] Implanted:Qty : 1 on 04/07/2018 by Bairon Adame MD at [facility] Left: Hip RENOVI 10/26/2022 1501-865 -020 / / [id number] Acetabular Bone Screw 6.5mm X 30mm - [id number] - [id number] Implanted:Qty : 1 on 04/07/2018 by Bairon Adame MD at [facility] Left: Hip RENOVI 08/22/2021 1501-865 -030 / / [id number] Stem Tapered Femoral Extended-Late ral Offset 6.75mm - [id number] - [id number] Implanted:Qty : 1 on 04/07/2018 by Bairon Adame MD at [facility] Left: Hip RENOVI 07/21/2022 1401-922 -067 / / [id number] Biolox Delta Ceramic Femoral Head Sz 36mm -4 - [id number] - [id number] Implanted:Qty : 1 on 04/07/2018 by Bairon Adame MD at [facility] Left: Hip RENOVI 03/03/2022 1451-036 -004 / / [id number] Plate Souris 57mm 3 Level Bone Stry-K2m [id number]-8 09608 - [id number] Implanted:Qty : 1 on 08/09/2021 by Andrea Polanco DO at [facility] Anterior: Spine Cervical [employer] [id number] 57V / / Screw Souris Self-Start 4x16mm Stry-K2m 8801-37462ue- 019073 - [id number] Implanted:Qty : 7 on 08/09/2021 by Andrea Polanco DO at [facility] Anterior: Spine Cervical [employer] 8801-040 16DA / / Screw Souris 16mm 4.5mm Self St Stry-Howm 8801-41079rj- 681423 - [id number] Implanted:Qty : 1 on 08/09/2021 by Andrea Polanco DO at [facility] Anterior: Spine Cervical [facility] 8801-045 16DA / / Spacer Vikos 14.5x11.5x8mm 7d Stry-Spin 2227-88161n-1 99350 - [id number] Implanted:Qty : 1 on 08/09/2021 by Andrea Polanco DO at [facility] Anterior: Spine Cervical [employer] 06/12/2025 2504-214 08L / [id number] / Spacer Vikos 14.5x11.5x7mm 7d Stry-Spin 9304-17001j-2 36152 - [id number] Implanted:Qty : 1 on 08/09/2021 by Andrea Polanco DO at [facility] Anterior: Spine Cervical [employer] 10/24/2025 2504-214 07L / [id number] / Spacer Vikos 14.5x11.5x7mm 7d Stry-Spin 2361-50455f-2 14502 - [id number] Implanted:Qty : 1 on 08/09/2021 by Andrea Polanco DO at [facility] Anterior: Spine Cervical [employer] 08/02/2025 2504-214 07L / [id number] / Hip Cup Marie Tpr 52mm Sz3 Crng-Manu 321.03.352-63 6960 - [id number] Implanted:Qty : 1 on 12/29/2022 by Clifton Esteban MD at [facility] Right: Hip [employer] [id number] 10/13/2027 321.03.3 52 / / [id number] Screw Marie 6.5x25mm Crng-Manu 321.025-71102 7 - [id number] Implanted:Qty : 1 on 12/29/2022 by Clifton Esteban MD at [facility] Right: Hip [employer] [id number] 09/02/2027 321.025 / / [id number] Screw Marie 6.5x20mm Crng-Manu 321.020-73920 6 - [id number] Implanted:Qty : 1 on 12/29/2022 by Clifton Esteban MD at [facility] Right: Hip [employer] [id number] 10/02/2027 321.020 / / [id number] Marie Liner Ecima Neutral Offset Implanted:Qty : 1 on 12/29/2022 by Clifton Esteban MD at [facility] Right: Hip [employer] 10/29/2027 322.03.6 36 / / [id number] Explanted Type Area Cellophane Tester Device Identifier Shelf Expiration Date Model / Serial / Lot Acetabular Shell Cluster Hole Sz 54mm - [id number] - [id number] Implanted:Qty: 1 on 04/07/2018 by Bairon Adame MD at [facility] Explanted:Qty: 1 on 02/11/[address] [facility] Left: Hip RENOVI 12/13/2021 1501-121 -05 3553-2 Advance Directives For more information, please contact: [phone] Documents on File Type Date Recorded Patient Engineering Supervisor Expl anation Advance Directive and Living Will [...] in the following way: discussion with healthcare employer relations representative . Full Code 08/09/2021 12:40 PM 08/12/2021 9:22 PM This code status was ascertained in the following way: discussion with patient . Care Teams Slip Cover Cutter Relationship Specialty Start Date End Date Diana Martinez PA [address] [place] [address] PCP - General Physician Asbestos Brake Lining Finisher Helper 12/29/22
== END 2025-04-20 12:31 | disposition home or self-care (01) ==
LOC: HO.HOP 11:01
PROVIDERS: PCP Internal Medicine; Visit Provider Clinical Nurse Specialist Psychiatric/Mental Health
DX: F33.1 Major depressive disorder, recurrent, moderate (principal); F41.1 Generalized anxiety disorder; F43.12 Post-traumatic stress disorder, chronic
CPT/HCPCS: 99215

== ENCOUNTER → 2025-04-20 11:01 | Outpatient (BNVA) | payer MEDICARE, MEDICAID, SELFPAY | PROVIDERS: PCP Internal Medicine; Visit Provider Clinical Nurse Specialist Psychiatric/Mental Health | DX: F33.1 Major depressive disorder, recurrent, moderate (principal); F41.1 Generalized anxiety disorder; F43.12 Post-traumatic stress disorder, chronic; Z79.899 Other long term (current) drug therapy | CPT/HCPCS: 99212 ==

== ENCOUNTER 2025-05-09 14:08 | Outpatient (AMB) | payer MEDICARE, MEDICAID, SELFPAY ==
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
--- OUTSIDE RECORDS SUMMARY | 2025-05-09 15:21 | XMS_ITS | Encounter Summary ---
Author Organization [facility] Address [address] [place] [address] Care Team Providers Care Rod Greaser Name Role Phone Diana Martinez Primary Care Provider [phone]- [phone] Carl Goodman MD Unavailable Osmar Chicas MD Unavailable [phone] Encounter Details Date Type Department Care Team (Late st Contact Info) Description 09/10/[address] [facility] Department of Internal Medicine [place] [address] [place] [address] Diana Martinez PA [address] [place], [place] [id number] Social History Tobacco Use Types Packs/Day Years [...] on filedocumented in this encounter Care Teams Rod Greaser Relationship Specialty Start Date End Date Diana Martinez PA [address] [place] [address] PCP - General 01/03/22 Carl Goodman MD [address] [address] Surgery, Orthopedic 01/03/22 Osmar Chicas MD [address] [place] [id number] Cardiovascular Disease 01/03/22 documented as of this encounter
--- OUTSIDE RECORDS SUMMARY | 2025-05-09 15:21 | XMS_ITS | Encounter Summary ---
Author Organization [facility] Address [address] [place] [address] Care Team Providers Care Analytics Associate Name Role Phone Diana Martinez Primary Care Provider Carl Goodman MD Unavailable Osmar Chicas MD Unavailable Encounter Details Date Type Department Care Team (Late st Contact Info) Description 05/20/2022 Erroneous Encounter OA CONVERSION DEPT [address] [place] [address] Anthony Landeros MD [address] [id number] Social History Tobacco Use Types Packs/Day Years [...] on filedocumented in this encounter Care Teams Analytics Associate Relationship Specialty Start Date End Date Diana Martinez PA [address] [place] [address] PCP - General 01/03/22 Carl Goodman MD [address] [address] Surgery, Orthopedic 01/03/22 Osmar Chicsa MD [address] [address] Cardiovascular Disease 01/03/22 documented as of this encounter
--- OUTSIDE RECORDS SUMMARY | 2025-05-09 15:21 | XMS_ITS | Encounter Summary ---
Author Organization [facility] Address [address] [place] [address] Care Team Providers Care Water Pump Assembler Name Role Phone Diana Martinez Primary Care Provider [phone]- [phone] Carl Goodman MD Unavailable Osmar Chicas MD Unavailable [phone] Encounter Details Date Type Department Care Team (Late st Contact Info) Description 10/23/2023 Scanned Document [facility] Physicians Department of Internal Medicine [place] [address] [place] [address] Diana Martinez PA [address] [place], [place] [id number] Social History Tobacco Use Types Packs/Day Years [...] on filedocumented in this encounter Care Teams Water Pump Assembler Relationship Specialty Start Date End Date Diana Martinez PA [address] [place] [address] PCP - General 01/03/22 Carl Goodman MD [address] [address] Surgery, Orthopedic 01/03/22 Osmar Chicas MD [address] [place] [id number] Cardiovascular Disease 01/03/22 documented as of this encounter
--- OUTSIDE RECORDS SUMMARY | 2025-05-09 15:21 | XMS_ITS | Encounter Summary ---
Author Organization [facility] Address [address] [place] [address] Care Team Providers Care Garbage Man Name Role Phone Diana Martinez Primary Care Provider [phone]- [phone] Carl Goodman MD Unavailable Osmar Chicas MD Unavailable [phone] Encounter Details Date Type Department Care Team (Late st Contact Info) Description 12/07/2022 Scanned Document [facility] Department of Internal Medicine [place] [address] [place] [address] Diana Martinez PA [address] [place] [address] Social History Tobacco Use Types [...] on filedocumented in this encounter Care Teams Garbage Man Relationship Specialty Start Date End Date Diana Martinez PA [address] [place], [place] [id number] PCP - General 01/03/22 Carl Goodman MD [address] [address] Surgery, Orthopedic 01/03/22 Osmar Chicas MD [address] [place] [address] Cardiovascular Disease 01/03/22 documented as of this encounter
--- OUTSIDE RECORDS SUMMARY | 2025-05-09 15:21 | XMS_ITS | Clinical Summary ---
Author Organization [facility] Address [address] [place] [address] Care Team Providers Care Primary Care Sales Representative Name Role Phone Diana Martinez Primary Care Provider [phone]- [phone] Carl Goodman MD Unavailable Osmar Chicas MD Unavailable [phone] Allergies Active Allergy Reactions Criticality Noted Date [...] s Medium 10/12/2010 Other reaction(s): rash Medications zolpidem (AMBIEN) 10 MG tablet Take 10 mg by mouth nightly. Active ARIPiprazole (ABILIFY) 5 MG tablet Take 2.5 mg by mouth every evening. Active clonazePAM (KlonoPIN) 0.5 MG tablet TAKE 1-2 TABLETS ONCE A DAY IF NEEDED FOR ANXIETY 2 Active sertraline (ZOLOFT) 100 MG tablet Take 1.5 tablets by mouth daily. 100 mg morning, 50 mg night 9 Active ondansetron (ZOFRAN) 4 MG tablet PLEASE SEE ATTACHED FOR DETAILED DIRECTIONS 3 Active meclizine (ANTIVERT) 25 MG tablet Take by mouth. 2 Active valsartan (DIOVAN) 80 MG tabletIndication s:Hypertension, unspecified type TAKE 1 TABLET BY MOUTH DAILY. 90 tablet 3 3 Active Additional Information Patient taking differently: 40 mgOral Daily, Reported on 03/17/2023 lamoTRIgine (LaMICtal) 100 MG tablet 150 mg AM, 100 mg PM 3 Active methocarbamol (ROBAXIN) 750 MG tablet TAKE 1 TABLET 3 TIMES A DAY BY ORAL ROUTE NEEDED. 3 Active oxyCODONE (ROXICODONE) 5 MG immediate release tablet 3 Active levETIRAcetam (KEPPRA) 750 MG tablet Take 375 mg by mouth every other day. Active cephalexin (KEFLEX) 500 MG capsuleIndicatio ns:Folliculitis Take 1 capsule (500 mg total) by mouth 3 (three) times a day. 30 capsule 3 Active rosuvastatin (CRESTOR) 10 MG tabletIndication s:Encounter for medication refill TAKE 1 TABLET BY MOUTH EVERYDAY AT BEDTIME 90 tablet 1 3 Active PANTOprazole (PROTONIX) 40 MG EC tabletIndication s:Acute gastritis without hemorrhage, unspecified gastritis type TAKE 1 TABLET BY MOUTH EVERY DAY 30 tablet 3 4 Active Active Problems Problem Noted Date Diagnosed [...] CVA (cerebral vascular accident) 01/06/2023 01/07/2006/05/2023 Immunizations Immunization Administration Dates Next Due Influenza Whole 06/07/2010 [...] 73 05/27/2023 1:06 PM EDT Temperature 36.8 C (98.3 F) 02/07/2022 10:00 AM EDT Respiratory Rate 17 02/07/2022 10:00 AM EDT [...] C Virus Screening 1965 HIV Screening 1978 Pneumococcal Vaccines 50+ (1 of 2 - PCV) 1984 Pap Smear (Ages 21-65) 1986 Mammogram 2005 Colonoscopy 2010 Zoster (Shingles) Vaccine (1 of 2) 2015 DTaP/Tdap/Td Vaccines (2 - T d or Tdap) 11/08/2022 11/08/2012 COVID-19 Vaccine ( - 2023-2 5 season) 2024 07/08/2021, 10/19/2020, 09/28/2020 Influenza Vaccine 04/07/2025 05/27/2023, 06/07/2010 RSV Vaccine 60 years and older and Patients (1 - 1-dose 75+ series) 2040 Hepatitis B Vaccines Aged Out No long er eligible based on patient's age to complete this topic Medical Devices Implanted Type Area Embroidery Designer Device Identifier Shelf Expiration Date Model / Serial / Lot 193.334 Spacer Spinal [id number] Rise-L 10d Nonst - [id number] Implanted:Qty: 2 on 02/05/2022 by Carl Goodman MD at [facility] Cage N/A: Spine Lumbar [employer] 193.334 / / 6.5x55 Voyager Mas Screw Implanted:Qty: 2 on 02/05/2022 by Carl Goodman MD at [facility] Screw N/A: Spine Lumbar [employer] MINIMALLY INVASIVE T [id number] / / [id number] Screw Set 5.5/6mm Cd Hzn Soleral Vygr Nonst Lf - [id number] Implanted:Qty: 6 on 02/05/2022 by Carl Goodman MD at [facility] Screw N/A: Spine Lumbar [employer] MINIMALLY INVASIVE T [id number] / / [id number] Screw Bone Spine Cd Hzn Vygr 50mm 6.5mm Ma Nonst 5.5mm Nestor - [id number] Implanted:Qty: 2 on 02/05/2022 by Carl Goodman MD at [facility] Spine N/A: Spine Lumbar [employer] MINIMALLY INVASIVE T [id number] / / [id number] Screw Bone Spine Cd Hzn Vygr 45mm 6.5mm Ma Nonst 5.5mm Nestor - [id number] Implanted:Qty: 2 on 02/05/2022 by Carl Goodman MD at [facility] Spine N/A: Spine Lumbar [employer] MINIMALLY INVASIVE T [id number] / / [id number] Tab Fixation 5.5/6mm Spine Superintendent [employer] Sleeve - [id number] Implanted:Qty: 12 on 02/05/2022 by Carl Goodman MD at [facility] Spine N/A: Spine Lumbar [employer] MINIMALLY INVASIVE T [id number] / / [id number] Graft Bone 23mm 14mm Infs Sm Spine Rhbmp-2 Bvn Collagen - [id number] Implanted:Qty: 1 on 02/05/2022 by Carl Goodmna MD at [facility] Tissue N/A: Spine Lumbar [employer] MINIMALLY INVASIVE T 06/06/2024 [id number] / / [id number] Graft Bone Kore Fiber Marcial Bone Fiber 5cc Algrf Mld High - [id number] Implanted:Qty: 1 on 02/05/2022 by Carl Goodman MD at [facility] Tissue N/A: Spine Lumbar [employer]OSKELET[employer]ANSPLANT FOU 02/21/2024 [id number] / [id number] / 5.5/6.0 Sv Cap Implanted:Qty: 6 on 02/05/2022 by Carl Goodman MD at [facility] N/A: Spine Lumbar [employer] MINIMALLY INVASIVE T [id number] / / 5.5 Ccm Prec Nestor 80mm Implanted:Qty: 2 on 02/05/2022 by Carl Goodman MD at [facility] N/A: Spine Lumbar [employer] MINIMALLY INVASIVE T [id number] / / Explanted Type Area Embroidery Designer Device Identifier Shelf Expiration Date Model / Serial / Lot [id number] Screw Bone Spine Schnz 120mm 4mm - [id number] Explanted:Qty: 1 on 02/05/2022 at [facility] Spine N/A: Spine Lumbar [employer] MINIMALLY INVASIVE T [id number] / / Description:supply item Insurance [facility] Advance Directives * Full Code (Latest Code Status on File) Date Activated Date Inactivated Comments 02/05/2022 6:30 PM * Full Code Date Activated Date Inactivated Comments 02/05/2022 10:09 AM 02/05/2022 6:30 PM Care Teams Primary Care Sales Representative Relationship Specialty Start Date End Date Diana Martinez PA [address] [place] [address] PCP - General 01/03/22 Carl Goodman MD [address] [address] Surgery, Orthopedic 01/03/22 Osmar Chicas MD [address] [place] [address] Cardiovascular Disease 01/03/22
--- OUTSIDE RECORDS SUMMARY | 2025-05-09 15:21 | XMS_ITS | Encounter Summary ---
Author Organization [facility] Address [address] [place] [address] Care Team Providers Care Motor Vehicle Licence Examiner Name Role Phone Diana Martinez Primary Care Provider [phone]- [phone] Carl Goodman MD Unavailable Osmar Chicas MD Unavailable [phone] Encounter Details Date Type Department Care Team (Late st Contact Info) Description 12/01/2022 Scanned Document [facility] Department of Internal Medicine [place] [address] [place] [address] Diana Martinez PA [address] [place] [address] Social History Tobacco Use Types [...] on filedocumented in this encounter Care Teams Motor Vehicle Licence Examiner Relationship Specialty Start Date End Date Diana Martinez PA [address] [place], [place] [id number] PCP - General 01/03/22 Carl Goodman MD [address] [address] Surgery, Orthopedic 01/03/22 Osmar Chicas MD [address] [place] [address] Cardiovascular Disease 01/03/22 documented as of this encounter
--- OUTSIDE RECORDS SUMMARY | 2025-05-09 15:21 | XMS_ITS | Clinical Summary ---
Author Organization [address] Address [address] [place] [address] [place] Calix [phone] Phone Care Team Providers Care Dry Ice Maker Name Role Phone Frank Berry MD [...] 1 (one) time each day. 90 each 02/24/2025 Active zolpidem (AMBIEN) 10 mg tablet Take 1 tablet (10 mg total) by mouth 1 (one) time each day. Max Daily Amount: 10 mg 03/15/2020 Active rosuvastatin (CRESTOR) 10 mg tablet TAKE 1 TABLET BY MOUTH 1 TIME EACH DAY. 90 tablet 1 04/05/2025 Active Active Problems Problem Noted Date Diagnosed [...] (BMI) of 36.0 to 36.9 in adult ([facility] V24, [facility] V28) 06/18/2024 Adenoma of colon 12/28/2023 Overview (06/18/2024): History of adenoma greater than 10 mm. Last colonoscopy 03/2021, follow-up 5 years Anxiety and depression 12/24/2023 Gastroesophageal reflux disease 12/24/2023 Low magnesium level 12/24/2023 Other hyperlipidemia 12/24/2023 Primary hypertension 12/24/2023 PTSD (post-traumatic stress disorder) 12/24/2023 Seizures ([facility] V24, [facility] V28) 12/24/2023 Resolved Problems Problem Noted Date Diagnosed Date Resolved Date Vitamin B12 deficiency 12/24/202308/01 Vitamin D deficiency 12/24/2023 024 Encounters Date Type Department Care Team Description 04/10/2025 10:30 AM EDT Treatment Pelvic Floor Rehabilitation [address] [phone] Yessica Sanchez PT Urinary incontinence, unspecified type (Primary Dx); Constipation, unspecified constipation type; Urgency of urination; Pelvic pain; Muscle spasm; Muscle weakness 03/17/[address] [phone] Floyd Romero MD 03/15/2025 3:09 PM EDT - 03/15/2025 11:59 PM EDT Hospital Encounter [address] [phone] Annual wellness visit; Routine general medical examination at a health care facility; Right hip pain Discharge Disposition: Home or Self Care 03/15/2025 3:09 PM EDT - 03/15/2025 11:59 PM EDT Hospital Encounter [address] [phone] Annual wellness visit; Routine general medical examination at a health care facility; Chronic low back pain, unspecified back pain laterality, unspecified whether sciatica present Discharge Disposition: Home or Self Care 03/15/2025 2:00 PM EDT Office Visit [address] [phone] Frank Berry MD Annual wellness visit (Primary [...] history of pancreatic cancer; Seizures (CMS/HCC V24, CMS/HCC V28); Mild cognitive impairment; Other hyperlipidemia; Anxiety [...] deficiency 12/24/2023 Vitamin D deficiency 12/24/2023 Epilepsy ([facility] V24, [facility] V28) Stroke ([facility] V24, [facility] V28) Family History Medical History Relation Name [...] for your loved ones. For example, child caregiver or elderly care for an older adult? [...] - Risk 60-74 years 1-dose series) 2025 COVID-19 Vaccine ( season) 2025 07/08/2021, 10/19/2020, 09/28/2020 Influenza Vaccine (#1) 2025 , 05/27/2023, 07/08/2021, Additional history exists Cervical Cancer Screening: Pap Smear 09/07/2025 Postponed [...] this topic Medical Devices Implanted Type Area Manager Strategy & Account Device Identifier Shelf Expiration Date Model / Serial / Lot Surgiflo Hemostatic Matrix [facility] [id number] Implanted:Qty : 2 on 08/09/2021 by Andrea Polanco DO Implants N/A: Spine Cervical [facility] [employer] 11/04/2022 [id number] / / [id number] Size 5 Standard Tapered Stem Cementless Implanted:Qty : 1 on 12/29/2022 by Clifton Esteban MD Joints Right: Hip [id number] 10/01/2027 / / [id number] +4 Femoral Head Implanted:Qty : 1 on 12/29/2022 by Clifton Esteban MD Joints Right: Hip [id number] 07/04/2026 / / [id number] Description:Renata 36mm +4mm Spacer Vikos 14.5x11.5x8mm 7d Stry-Spin [id number] 01990 - [id number] Implanted:Qty : 1 on 08/09/2021 by Andrea Polanco DO N/A: Spine Cervical [employer] 06/12/2025 2504-214 08L / [id number] / Spacer Vikos 14.5x11.5x7mm 7d Stry-Spin [id number] 48250 - [id number] Implanted:Qty : 1 on 08/09/2021 by Andrea Polanco DO N/A: Spine Cervical [employer] 10/24/2025 2504-214 07L / [id number] / Spacer Vikos 14.5x11.5x7mm 7d Stry-Spin [id number] 32470 - [id number] Implanted:Qty : 1 on 08/09/2021 by Andrea Polanco DO N/A: Spine Cervical [employer] 08/02/2025 2504-214 07L / [id number] / Plate Washoe 57mm 3 Level Bone Stry-K2m [id number] Implanted:Qty : 1 on 08/09/2021 by Andrea Polanco DO N/A: Spine Cervical [employer] [id number] 57V / / Screw [place] Self-Start 4x16mm Stry-K2m [id number]- [id number] Implanted:Qty : 7 on 08/09/2021 by Andrea Polanco DO N/A: Spine Cervical [employer] 8801-040 16DA / / Screw Wash[place] 16mm 4.5mm Self St Stry-Howm [id number]- [id number] Implanted:Qty : 1 on 08/09/2021 by Andrea Polanco DO N/A: Spine Cervical [employer] 8801-045 16DA / / Screw Marie 6.5x20mm Crng-Manu [id number] Implanted:Qty : 1 on 12/29/2022 by Clifton Esteban MD Right: Hip [employer] [id number] 10/02/2027 321.02 0 / / [id number] Marie Liner Ecima Neutral Offset Implanted:Qty : 1 on 12/29/2022 by Clifton Esteban MD Right: Hip [employer] 10/29/2027 322.03.6 36 / / [id number] Hip Cup Marie Tpr 52mm Sz3 Crng-Manu [id number] 6960 Implanted:Qty : 1 on 12/29/2022 by Clifton Esteban MD Right: Hip [employer] [id number] 10/13/2027 321.03 .3 52 / / [id number] Screw Marie 6.5x25mm Crng-Manu [id number] 7 Implanted:Qty : 1 on 12/29/2022 by Clifton Esteban MD Right: Hip [employer] [id number] 09/02/2027 321.02 5 / / [id number] Procedures Procedure Name Priority Date/Time Associated Diagnosis [...] phosphatase, bone specific (03/16/2025 1:11 PM EDT) [facility] Alkaline Phosphatase Bone 14.2 5.6 - 29.0 ug/L 03/20/2025 2:49 PM EDT [facility] Comment: Liver alkaline phosphatase can affect the measurement of bone specific alkaline phosphatase in this assay. Each 100 U/L of liver alkaline phosphatase contributes an additional 2.5 to 5.8 ug/L to the bone specific alkaline phosphatase result. Test performed at [facility], [address] , [place] [address] Ping [place] MD, PhD - Rollout Manager Blood Venous blood specimen / Unknown Venipuncture / Unknown 03/16/2025 1:11 PM EDT 03/16/2025 1:11 PM EDT Frank Berry MD LAB BLOOD ORDERABLES Final Result [facility] [address] [place] [address] * Vitamin D 25 hydroxy (03/16/2025 1:11 PM EDT) [facility] Vit D, 25-Hydroxy 33.6 30.0 - 80.0 ng/mL LAB CHEMISTRY METHOD 03/16/2025 6:31 PM EDT [facility] Blood Venous blood specimen / Unknown Venipuncture / Unknown 03/16/2025 1:11 PM EDT 03/16/2025 1:11 PM EDT Frank Berry MD LAB BLOOD ORDERABLES Final Result [facility] [address] [place] [address], * (ABNORMAL) Alkaline phosphatase (03/16/2025 1:11 PM EDT) [facility] Alkaline Phosphatase 135(H) 42 - 121 unit/L LAB CHEMISTRY METHOD 03/16/2025 5:42 PM EDT [facility] Blood Venous blood specimen / Unknown Venipuncture / Unknown 03/16/2025 1:11 PM EDT 03/16/2025 1:11 PM EDT Frank Berry MD LAB BLOOD ORDERABLES Final Result Performing Organization Address [facility]/ZIP Co de Phone Number [facility] [address] [place] [address], [place] [phone] * Thyroid stimulating hormone with reflex to free t4 and free t3 (03/16/2025 8:24 AM EDT) TSH 1.35 0.40 - 4.00 mcIU/mL LAB CHEMISTRY METHOD 03/16/2025 12:32 PM EDT [facility] Blood Venous blood specimen / Unknown Venipuncture / Unknown 03/16/2025 8:24 AM EDT 03/16/2025 8:24 AM EDT Frank Berry MD LAB BLOOD ORDERABLES Final Result Performing Organization Address [facility] de Phone Number [facility] [address] [place] [address], [place] [phone] * Lipid panel with reflex to direct [...] 03/16/2025 12:05 PM EDT [facility] Non HDL Chol. (LDL+VLDL) 96 <145 mg/dL LAB CHEMISTRY METHOD 03/16/2025 12:05 PM EDT [facility] Chol/HDL Ratio 2.0 0.0 - 4.4 LAB CHEMISTRY METHOD 03/16/2025 12:05 PM [facility] Blood Venous blood specimen / Unknown Venipuncture / Unknown 03/16/2025 8:24 AM EDT 03/16/2025 8:24 AM EDT us Frank Berry MD LAB BLOOD ORDERABLES Final Result [facility] [address] [place] [address], [place] [phone] * (ABNORMAL) CBC auto differential (03/16/2025 8:24 AM EDT) WBC 7.3 4.8 - 10.8 K/mcL LAB HEMETOLOGY METHOD 03/16/2025 10:37 AM [facility] RBC 4.70 3.80 - 4.80 M/[facility] HEMETOLOGY METHOD 03/16/2025 10:37 AM [facility] Hemoglobin 13.2 11.5 - 16.0 g/dL LAB HEMETOLOGY METHOD 03/16/2025 10:37 AM [facility] Hematocrit 41.5 35.0 - 47.0 % LAB HEMETOLOGY METHOD 03/16/2025 10:37 AM [facility] MCV 89.2 79.0 - 98.0 FL LAB HEMETOLOGY METHOD 03/16/2025 10:37 AM [facility] MCH 28.4 27.0 - 32.0 pcg LAB HEMETOLOGY METHOD 03/16/2025 10:37 AM [facility] MCHC 31.8(L) 32.0 - 37.0 g/dL LAB HEMETOLOGY METHOD 03/16/2025 10:37 AM [facility] RDW 12.6 11.0 - 15.0 % LAB HEMETOLOGY METHOD 03/16/2025 10:37 AM [facility] Platelets 219 130 - 400 K/mcL LAB HEMETOLOGY METHOD 03/16/2025 10:37 AM [facility] MPV 9.0 7.0 - 11.0 FL LAB HEMETOLOGY METHOD 03/16/2025 10:37 AM [facility] NRBC 0.0 <1.0 % LAB HEMETOLOGY METHOD 03/16/2025 10:37 AM [facility] NRBC Absolute 0.00 <0.10 K/mcL LAB HEMETOLOGY METHOD 03/16/2025 10:37 AM [facility] Neutrophils Relative 59.6 % LAB HEMETOLOGY METHOD 03/16/2025 10:37 AM [facility] Lymphocytes Relative 28.7 % LAB HEMETOLOGY METHOD 03/16/2025 10:37 AM [facility] Monocytes Relative 9.1 % LAB HEMETOLOGY METHOD 03/16/2025 10:37 AM [facility] Eosinophils Relative 1.8 % LAB HEMETOLOGY METHOD 03/16/2025 10:37 AM [facility] Basophils Relative 0.5 % LAB HEMETOLOGY METHOD 03/16/2025 10:37 AM [facility] Immature Granulocytes Relative 0.3 % LAB HEMETOLOGY METHOD 03/16/2025 10:37 AM [facility] Neutrophils Absolute 4.37 1.50 - 7.00 K/mcL LAB HEMETOLOGY METHOD 03/16/2025 10:37 AM [facility] Lymphocytes Absolute 2.11 1.00 - 5.00 K/mcL LAB HEMETOLOGY METHOD 03/16/2025 10:37 AM EDT [facility] Monocytes Absolute 0.67 0.20 - 1.00 K/[facility] HEMETOLOGY METHOD 03/16/2025 10:37 AM EDT [facility] Eosinophils Absolute 0.13 0.00 - 0.50 K/[facility] HEMETOLOGY METHOD 03/16/2025 10:37 AM EDT [facility] Basophils Absolute 0.04 0.00 - 0.20 K/[facility] HEMETOLOGY METHOD 03/16/2025 10:37 AM EDT [facility] Immature Granulocytes Absolute 0.02 0.00 - 0.03 K/[facility] HEMETOLOGY METHOD 03/16/2025 10:37 AM EDT [facility] Blood Venous blood specimen / Unknown Venipuncture / Unknown 03/16/2025 8:24 AM EDT 03/16/2025 8:24 AM EDT Frank Berry MD LAB BLOOD ORDERABLES Final Result [facility] [address] [place] [address], * Phosphorus (03/16/2025 8:24 AM EDT) Phosphorus 3.9 2.5 - 4.5 mg/dL LAB CHEMISTRY METHOD 03/16/2025 12:03 PM EDT [facility] Blood Venous blood specimen / Unknown Venipuncture / Unknown 03/16/2025 8:24 AM EDT 03/16/2025 8:24 AM EDT Frank Berry MD LAB BLOOD ORDERABLES Final Result [facility] [address] [place] [address], [place] [phone] * Magnesium (03/16/2025 8:24 AM EDT) [facility] Magnesium 2.6 1.9 - 2.6 mg/dL LAB CHEMISTRY METHOD 03/16/2025 11:32 AM EDT [facility] Blood Venous blood specimen / Unknown Venipuncture / Unknown 03/16/2025 8:24 AM EDT 03/16/2025 8:24 AM EDT Frank Berry MD LAB BLOOD ORDERABLES Final Result [facility] [address] [place] [address], [place] [phone] * Vitamin B12 (03/16/2025 8:24 AM EDT) [facility] Vitamin B-12 884 250 - 900 pcg/mL LAB CHEMISTRY METHOD 03/16/2025 12:03 PM EDT [facility] Blood Venous blood specimen / Unknown Venipuncture / Unknown 03/16/2025 8:24 AM EDT 03/16/2025 8:24 AM EDT Frank Berry MD LAB BLOOD ORDERABLES Final Result [facility] [address] [place] [address], [place] [phone] * (ABNORMAL) Comprehensive metabolic panel (03/16/2025 8:24 AM EDT) [facility] Sodium 141 133 - 145 mmol/L LAB CHEMISTRY METHOD 03/16/2025 12:03 PM EDT [facility] Potassium 3.9 3.5 - 5.5 mmol/L LAB CHEMISTRY METHOD 03/16/2025 12:03 PM EDT [facility] Chloride 106 96 - 110 mmol/L LAB CHEMISTRY METHOD 03/16/2025 12:03 PM [facility] CO2 30 21 - 32 mmol/L LAB CHEMISTRY METHOD 03/16/2025 12:03 PM [facility] Anion Gap 5 3 - 11 LAB CHEMISTRY METHOD 03/16/2025 12:03 PM [facility] Glucose 95 70 - 100 mg/dL LAB CHEMISTRY METHOD 03/16/2025 12:03 PM [facility] BUN 12 5 - 25 mg/dL LAB CHEMISTRY METHOD 03/16/2025 12:03 PM [facility] Creatinine 0.90 0.50 - 1.10 mg/dL LAB CHEMISTRY METHOD 03/16/2025 12:03 PM [facility] eGFR 74 >=60 mL/min/1. 73m2 LAB CHEMISTRY METHOD 03/16/2025 12:03 PM [facility] Comment:Calculation based on the Chronic Kidney Disease Epidemiology Collaboration (CKD-EPI) equation refit without adjustment for race. BUN/Creatinine Ratio 13.3 LAB CHEMISTRY METHOD 03/16/2025 12:03 PM [facility] Calcium 9.5 8.5 - 10.5 mg/dL LAB CHEMISTRY METHOD 03/16/2025 12:03 PM [facility] AST (SGOT) 18 10 - 42 unit/L LAB CHEMISTRY METHOD 03/16/2025 12:03 PM [facility] ALT (SGPT) 25 10 - 60 unit/L LAB CHEMISTRY METHOD 03/16/2025 12:03 PM [facility] Alkaline Phosphatase 140(H) 42 - 121 unit/L LAB CHEMISTRY METHOD 03/16/2025 12:03 PM [facility] Total Protein 7.2 6.0 - 8.0 g/dL LAB CHEMISTRY METHOD 03/16/2025 12:03 PM [facility] Albumin 4.2 3.2 - 5.0 [...] ORDERABLES Final Result [facility] [address] [place] [address], [place] [phone] * XR Hip 2-3 Views Right (03/15/2025 [...] Signed Date: 03/15/2025 16:10 ET Workstation ID: [id number] Transcribed By: Self Edit Transcribed Date: 03/15/2025 [...] Signed Date: 03/15/2025 16:10 ET Workstation ID: [id number] Transcribed By: Self Edit Transcribed Date: 03/15/2025 [...] Signed Date: 03/15/2025 16:08 ET Workstation ID: [id number] Transcribed By: Self Edit Transcribed Date: 03/15/2025 [...] posterior fusion hardware with titanium cages from [id number]. There is mild curvature of the [...] Signed Date: 03/15/2025 16:08 ET Workstation ID: [id number] Transcribed By: Self Edit Transcribed Date: 03/15/2025 16:06 ET us Frank Berry MD IMG XR PROCEDURES Final Res ult * HIV 1,2 antibody, p24 antigen with reflex to differentiation (08/12/2024 7:54 AM EST) HIV Combo AB/AG Negative Negative LAB CHEMISTRY METHOD 08/12/2024 10:52 AM EST [facility]) [facility] Blood Venous blood specimen / Unknown Venipuncture / Unknown 08/12/2024 7:54 AM EST 08/12/2024 7:54 AM EST Narrative [facility] - 08/12/2024 10:52 AM EST This [...] MD LAB BLOOD ORDERABLES F inal Result [facility] [address] [place] [address], [place] [phone] * SCREENING MAMMOGRAPHY BI 2-[employer] [...] - [place] [employer] MED[employer] Care Teams Dry Ice Maker Relationship Specialty Start Date End Date Frank Berry MD [address] [place] [address] PCP - General Internal Medicine 03/15/25
--- OUTSIDE RECORDS SUMMARY | 2025-05-09 15:21 | XMS_ITS | Encounter Summary ---
Author Organization [facility] Address [address] [place] [address] Care Team Providers Care Foil Wrapper Name Role Phone Diana Martinez Primary Care Provider [phone]- [phone] Carl Goodman MD Unavailable Osmar Chicas MD Unavailable [phone] Encounter Details Date Type Department Care Team (Late st Contact Info) Description 11/12/2022 Scanned Document [facility] Department of Internal Medicine [place] [address] [place] [address] Diana Martinez PA [address] [place] [address] Social History Tobacco Use Types [...] on filedocumented in this encounter Care Teams Foil Wrapper Relationship Specialty Start Date End Date Diana Martinez PA [address] [place], [place] [id number] PCP - General 01/03/22 Carl Goodman MD [address] [address] Surgery, Orthopedic 01/03/22 Osmar Chicas MD [address] [place] [address] Cardiovascular Disease 01/03/22 documented as of this encounter
--- OUTSIDE RECORDS SUMMARY | 2025-05-09 15:21 | XMS_ITS | Encounter Summary ---
Author Organization Formerly [facility] Address [address] [place] [address] Care Team Providers Care Pencil Maker Name Role Phone Diana Martinez Primary Care Provider [phone]- [phone] Carl Goodman MD Unavailable Osmar Chicas MD Unavailable [phone] Encounter Details Date Type Department Care Team (Late st Contact Info) Description 12/15/2022 Scanned Document [facility] Department of Internal Medicine [place] [address] [place] [address] Diana Martinez PA [address] [place] [address] Social History Tobacco Use Types [...] on filedocumented in this encounter Care Teams Pencil Maker Relationship Specialty Start Date End Date Diana Martinez PA [address] [place], [place] [id number] PCP - General 01/03/22 Carl Goodman MD [address] [address] Surgery, Orthopedic 01/03/22 Osmar Chicas MD [address] [place] [address] Cardiovascular Disease 01/03/22 documented as of this encounter
--- OUTSIDE RECORDS SUMMARY | 2025-05-09 15:21 | XMS_ITS | Encounter Summary ---
Author Organization [facility] Address [address] [place] [address] Care Team Providers Care Pulp House Supervisor Name Role Phone Diana Martinez Primary Care Provider [phone]- [phone] Carl Goodman MD Unavailable Osmar Chicas MD Unavailable [phone] Encounter Details Date Type Department Care Team (Late st Contact Info) Description 02/10/2023 Scanned Document [facility] Department of Internal Medicine [place] [address] [place] [address] Diana Martinez PA [address] [place], [place] [id number] Social History Tobacco Use Types Packs/Day Years [...] on filedocumented in this encounter Care Teams Pulp House Supervisor Relationship Specialty Start Date End Date Diana Martinez PA [address] [place] [address] PCP - General 01/03/22 Carl Goodman MD [address] [address] Surgery, Orthopedic 01/03/22 Osmar Chicas MD [address] [place] [id number] Cardiovascular Disease 01/03/22 documented as of this encounter
--- OUTSIDE RECORDS SUMMARY | 2025-05-09 15:21 | XMS_ITS | Encounter Summary ---
Author Organization [facility] Address [address] [place] [address] Care Team Providers Care Director Of Market Intelligence Name Role Phone Diana Martinez Primary Care Provider [phone]- [phone] Carl Goodman MD Unavailable Osmar Chicas MD Unavailable [phone] Encounter Details Date Type Department Care Team (Late st Contact Info) Description 10/13/2023 Scanned Document [facility] Department of Internal Medicine [place] [address] [place] [address] Diana Martinez PA [address] [place], [place] [address] Social History Tobacco Use Types Packs/Day Years [...] on filedocumented in this encounter Care Teams Director Of Market Intelligence Relationship Specialty Start Date End Date Diana Martinez PA [address] [place] [address] PCP - General 01/03/22 Carl Goodman MD [address] [address] Surgery, Orthopedic 01/03/22 Osmar Chicas MD [address] [place] [id number] Cardiovascular Disease 01/03/22 documented as of this encounter
--- OUTSIDE RECORDS SUMMARY | 2025-05-09 15:21 | XMS_ITS | Encounter Summary ---
Author Organization [facility] Address [address] [place] [address] Care Team Providers Care Opto Mechanical Engineer Name Role Phone Diana Martinez Primary Care Provider [phone]- [phone] Carl Goodman MD Unavailable Osmar Chicas MD Unavailable [phone] Encounter Details Date Type Department Care Team (Late st Contact Info) Description 12/18/2022 Scanned Document [facility] Department of Internal Medicine [place] [address] [place] [address] Diana Martinez PA [address] [place] [address] Social History Tobacco Use Types [...] on filedocumented in this encounter Care Teams Opto Mechanical Engineer Relationship Specialty Start Date End Date Diana Martinez PA [address] [place], [place] [id number] PCP - General 01/03/22 Carl Goodman MD [address] [address] Surgery, Orthopedic 01/03/22 Osmar Chicas MD [address] [place] [address] Cardiovascular Disease 01/03/22 documented as of this encounter
--- OUTSIDE RECORDS SUMMARY | 2025-05-09 15:21 | XMS_ITS | Encounter Summary ---
Author Organization [facility] Address [address] [place] [address] Care Team Providers Care General Store Manager Name Role Phone Diana Martinez Primary Care Provider +1- [phone] Carl Goodman MD Unavailable Osmar Chicas MD Unavailable [phone] Encounter Details Date Type Department Care Team (Late st Contact Info) Description 10/12/2023 Scanned Document [facility] Department of Internal Medicine [place] [address] [place] [address] Diana Martinez PA [address] [place], [place] [address] Social History Tobacco Use Types Packs/Day Years [...] on filedocumented in this encounter Care Teams General Store Manager Relationship Specialty Start Date End Date Diana Martinez PA [address] [place] [address] PCP - General 01/03/22 Carl Goodman MD [address] [address] Surgery, Orthopedic 01/03/22 Osmar Chicas MD [address] [place] [id number] Cardiovascular Disease 01/03/22 documented as of this encounter
--- OUTSIDE RECORDS SUMMARY | 2025-05-09 15:21 | XMS_ITS | Encounter Summary ---
Author Organization [facility] Address [address] [place] [address] Care Team Providers Care Window Clerk Name Role Phone Diana Martinez Primary Care Provider +1- [phone] Carl Goodman MD Unavailable Osmar Chicas MD Unavailable [phone] Encounter Details Date Type Department Care Team (Late st Contact Info) Description 05/01/2022 Erroneous Encounter [facility] CONVERSION DEPT [address] [place] [address] ProviderLorena MD Social History Tobacco [...] on filedocumented in this encounter Care Teams Window Clerk Relationship Specialty Start Date End Date Diana Martinez PA [address] [place] [address] PCP - General 01/03/22 Carl Goodman MD 31 [facility] [address] [place] [address] Surgery, Orthopedic 01/03/22 Osmar Chicas MD [address] [place] [address] Cardiovascular Disease 01/03/22 documented as of this encounter
--- OUTSIDE RECORDS SUMMARY | 2025-05-09 15:21 | XMS_ITS | Encounter Summary ---
Author Organization [facility] Address [address] [place] [address] Care Team Providers Care Potato Chip Fryer Name Role Phone Diana Martinez Primary Care Provider +1- [phone] Carl Goodman MD Unavailable Osmar Chicas MD Unavailable [phone] Encounter Details Date Type Department Care Team (Late st Contact Info) Description 05/28/2023 Scanned Document [facility] Physicians Department of Internal Medicine [place] [address] [place] [address] Diana Martinez PA [address] [place], [place] [id number] Social History Tobacco Use Types Packs/Day Years [...] on filedocumented in this encounter Care Teams Potato Chip Fryer Relationship Specialty Start Date End Date Diana Martinez PA [address] [place] [address] PCP - General 01/03/22 Carl Goodman MD [address] [address] Surgery, Orthopedic 01/03/22 Osmar Chicas MD [address] [place] [id number] Cardiovascular Disease 01/03/22 documented as of this encounter
--- OUTSIDE RECORDS SUMMARY | 2025-05-09 15:21 | XMS_ITS | Clinical Summary ---
Author Organization [facility] Address [address] [place] [address] Care Team Providers Care Electric Fan Assembler Name Role Phone Diana Martinez Primary Care Provider +1- [phone] Allergies Active Allergy Reactions Criticality Noted Date [...] this topic Medical Devices Implanted Type Area Basket Bottom Machine Operator Device Identifier Shelf Expiration Date Model / Serial / Lot Surgiflo Hemostatic Matrix [id number] - [id number] Implanted:Qty : 2 on 08/09/2021 by Andrea Polanco DO at [facility] Hemostatic Agent Anterior: Spine Cervical [facility] [employer] 11/04/2022 2991 / / [id number] Size 5 Standard Tapered Stem Cementless Implanted:Qty : 1 on 12/29/2022 by Clifton Esteban MD at [facility] Total Joint Right: Hip [id number] 10/01/2027 / / [id number] +4 Femoral Head Implanted:Qty : 1 on 12/29/2022 by Clifton Esteban MD at [facility] Total Joint Right: Hip [id number] 07/04/2026 / / [id number] Description:Renata 36mm +4mm Acetabular Liner 36mm X 52\54 10 Hooded E-Max - [id number] - [id number] Implanted:Qty : 1 on 04/07/2018 by Bairon Adame MD at [facility] Left: Hip RENOV[employer] 09/19/2022 1523-365 -254 / / [id number] Cancellous Bone Screw 6.5mm X 20mm - [id number] - [id number] Implanted:Qty : 1 on 04/07/2018 by Bairon Adame MD at [facility] Left: Hip [employer] 10/26/2022 1501-865 -020 / / [id number] Acetabular Bone Screw 6.5mm X 30mm - [id number] - [id number] Implanted:Qty : 1 on 04/07/2018 by Bairon Adame MD at [facility] Left: Hip R[employer]OV[employer] 08/22/2021 1501-865 -030 / / [id number] Stem Tapered Femoral Extended-Late ral Offset 6.75mm - 679690 - [id number] Implanted:Qty : 1 on 04/07/2018 by Bairon Adame MD at [facility] and Med Left: Hip RENOVI 07/21/2022 1401-922 -067 / / [id number] Biolox Delta Ceramic Femoral Head Sz 36mm -4 - [id number] - [id number] Implanted:Qty : 1 on 04/07/2018 by Bairon Adame MD at [facility] and Med Left: Hip RENOVI 03/03/2022 1451-036 -004 / / [id number] Plate [place] 57mm 3 Level Bone Stry-K2m [id number] 55143 - [id number] Implanted:Qty : 1 on 08/09/2021 by Andrea Polanco DO at [facility] and Med Anterior: Spine Cervical [employer] TB03-03R 57V / / Screw [place] Self-Start 4x16mm Stry-K2m 8801-01696st- [id number] - [id number] Implanted:Qty : 7 on 08/09/2021 by Andrea Polanco DO at [facility] and Med Anterior: Spine Cervical [employer] 8801-040 16DA / / Screw [place] 16mm 4.5mm Self St Stry-Howm 8801-76363ov- 351183 - [id number] Implanted:Qty : 1 on 08/09/2021 by Andrea Polanco DO at [facility] and Med Anterior: Spine Cervical [facility] 8801-045 16DA / / Spacer Vikos 14.5x11.5x8mm 7d Stry-Spin 6376-84596i-6 77445 - [id number] Implanted:Qty : 1 on 08/09/2021 by Andrea Polanco DO at [facility] and Med Anterior: Spine Cervical [employer] 06/12/2025 2504-214 08L / [id number] / Spacer [place] 14.5x11.5x7mm 7d Stry-Spin 1003-59684n-9 48206 - [id number] Implanted:Qty : 1 on 08/09/2021 by Andrea Polanco DO at [facility] and Med Anterior: Spine Cervical [employer] 10/24/2025 2504-214 07L / [id number] 1076 / Spacer [place] 14.5x11.5x7mm 7d Stry-Spin 1292-13540e-1 64876 - [id number] Implanted:Qty : 1 on 08/09/2021 by Andrea Polanco DO at [facility] Anterior: Spine Cervical [employer] 08/02/2025 2504-214 07L / [id number] / Hip Cup Marie Tpr 52mm Sz3 Crng-Manu 321.03.352-63 6960 - [id number] Implanted:Qty : 1 on 12/29/2022 by Clifton Esteban MD at [facility] Right: Hip [employer] [id number] 10/13/2027 321.03.3 52 / / [id number] Screw Marie 6.5x25mm Crng-Manu 321.025-34852 7 - [id number] Implanted:Qty : 1 on 12/29/2022 by Clifton Esteban MD at [facility] Right: Hip [employer] [id number] 09/02/2027 321.025 / / [id number] Screw Marie 6.5x20mm Crng-Manu 321.020-09126 6 - [id number] Implanted:Qty : 1 on 12/29/2022 by Clifton Esteban MD at [facility] Right: Hip [employer] [id number] 10/02/2027 321.020 / / [id number] Marie Liner Ecima Neutral Offset Implanted:Qty : 1 on 12/29/2022 by Clifton Esteban MD at [facility] Right: Hip [employer] 10/29/2027 322.03.6 36 / / [id number] Explanted Type Area Basket Bottom Machine Operator Device Identifier Shelf Expiration Date Model / Serial / Lot Acetabular Shell Cluster Hole Sz 54mm - [id number] - [id number] Implanted:Qty: 1 on 04/07/2018 by Bairon Adame MD at [facility] Explanted:Qty: 1 on 02/11/2023 at [facility] and Med Left: Hip RENOVI 12/13/2021 1501-121 -05 3553-2 Advance Directives For more information, please contact: [phone] Documents on File Type Date Recorded Patient Qa Engineer Expl anation Advance Directive and Living Will [...] in the following way: discussion with healthcare kiosk sales representative . Full Code 08/09/2021 12:40 PM 08/12/2021 9:22 PM This code status was ascertained in the following way: discussion with patient . Care Teams Electric Fan Assembler Relationship Specialty Start Date End Date Diana Martinez PA [address] [place] [address] PCP - General Physician Facilities Maintenance Supervisor 12/29/22
--- OUTSIDE RECORDS SUMMARY | 2025-05-09 15:21 | XMS_ITS | Encounter Summary ---
Author Organization [facility] Address [address] [place] [address] Care Team Providers Care Director Of Conservation Name Role Phone Diana Martinez Primary Care Provider +1- [phone] Carl Goodman MD Unavailable Osmar Chicas MD Unavailable [phone] Encounter Details Date Type Department Care Team (Late st Contact Info) Description 06/19/2022 Erroneous Encounter [facility]PT [address] [place] [address] Brian Chong APRN [address] [place], [place] [id number] Social History Tobacco Use Types Packs/Day Years [...] in this encounter Care Teams Director Of Conservation Relationship Specialty Start Date End Date Diana Martinez PA [address] [place] [address] PCP - General 01/03/22 Carl Goodman MD [address] [place] [address] Surgery, Orthopedic 01/03/22 Osmar Chicas MD [address] [place] [id number] Cardiovascular Disease 01/03/22 documented as of this encounter
--- OUTSIDE RECORDS SUMMARY | 2025-05-09 15:21 | XMS_ITS | Encounter Summary ---
Author Organization [facility] Address [address] [place] [address] Care Team Providers Care Regional Sales Engineer Name Role Phone Diana Martinez Primary Care Provider [phone]- [phone] Carl Goodman MD Unavailable Osmar Chicas MD Unavailable [phone] Encounter Details Date Type Department Care Team (Late st Contact Info) Description 08/25/2023 Scanned Document [facility] Physicians Department of Internal Medicine [place] [address] [place] [address] Diana Martinez PA [address] [place], [place] [phone] Social History Tobacco Use Types Packs/Day Years [...] on filedocumented in this encounter Care Teams Regional Sales Engineer Relationship Specialty Start Date End Date Diana Martinez PA [address] [place] [address] PCP - General 01/03/22 Carl Goodman MD [address] [address] Surgery, Orthopedic 01/03/22 Osmar Chicas MD [address] [place] [id number] Cardiovascular Disease 01/03/22 documented as of this encounter
--- OUTSIDE RECORDS SUMMARY | 2025-05-09 15:21 | XMS_ITS | Encounter Summary ---
Author Organization [facility] Address [address] [place] [address] Care Team Providers Care Icing Coater Name Role Phone Brian Chong APRN Primary Care Provider [phone] Diana Martinez Primary Care Provider + [phone] Carl Goodman MD Unavailable Osmar Chicas MD Unavailable [phone] Encounter Details Date Type Department Care Team (Late st Contact Info) Description 10/04/2018 Scanned Document [facility] [place] at [address] [id number] Spine Surgery, Scan Social History Tobacco Use Types Packs/Day Years Used Date Smoking Tobacco: Never Assessed Comments Unknown Sex and Gender Information Value [...] this encounter Results * BOOKING SHEETS-SCAN (10/04/2018) us Scan Spine Surgery HX AMB PROCEDURES Final Resul t documented in this encounter Visit Diagnoses Not on filedocumented in this encounter Care Teams Icing Coater Relationship Specialty Start Date End Date Brian Chong APRN [address] [place] [address] PCP - General Adult Health - PA/APNP/HVAC JOURNEYMAN/BIOINFORMATICS SPECIALIST 09/29/18 01/02/22 Diana Martinez PA [address] [place] [id number] PCP - General 01/03/22 Carl Goodman MD [address] [address] Surgery, Orthopedic 01/03/22 Osmar Chicas MD [address] [facility] [address] [place] [id number] Cardiovascular Disease 01/03/22 documented as of this encounter
== END 2025-05-09 14:42 | disposition home or self-care (01) ==
LOC: HO.HOP 14:08
PROVIDERS: PCP Internal Medicine; Visit Provider Clinical Nurse Specialist Psychiatric/Mental Health
DX: F33.1 Major depressive disorder, recurrent, moderate (principal); F41.1 Generalized anxiety disorder; F43.12 Post-traumatic stress disorder, chronic
CPT/HCPCS: 99214

== ENCOUNTER → 2025-05-09 14:08 | Outpatient (BNVA) | payer MEDICARE, MEDICAID, SELFPAY | PROVIDERS: PCP Internal Medicine; Visit Provider Clinical Nurse Specialist Psychiatric/Mental Health | DX: F33.1 Major depressive disorder, recurrent, moderate (principal); F41.1 Generalized anxiety disorder; F43.12 Post-traumatic stress disorder, chronic | CPT/HCPCS: 99212 ==

== ENCOUNTER 2025-05-30 16:41 | Outpatient (AMB) | payer MEDICARE, MEDICAID, SELFPAY ==
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
--- OUTSIDE RECORDS SUMMARY | 2025-05-30 18:44 | XMS_ITS | Encounter Summary ---
Author Organization [facility] Address [address] [place] [address] Care Team Providers Care Pumping Station Supervisor Name Role Phone Diana Martinez Primary Care Provider [phone]- [phone] Carl Goodman MD Unavailable Osmar Chicas MD Unavailable [phone] Encounter Details Date Type Department Care Team (Late st Contact Info) Description 08/25/2023 Scanned Document [facility] Physicians Department of Internal Medicine [place] [address] [place] [address] Diana Martinez PA [address] [place], [place] [phone] Social History Tobacco Use Types Packs/Day Years [...] on filedocumented in this encounter Care Teams Pumping Station Supervisor Relationship Specialty Start Date End Date Diana Martinez PA [address] [place] [address] PCP - General 01/03/22 Carl Goodman MD [address] [address] Surgery, Orthopedic 01/03/22 Osmar Chicas MD [address] [place] [phone] Cardiovascular Disease 01/03/22 documented as of this encounter
--- OUTSIDE RECORDS SUMMARY | 2025-05-30 18:44 | XMS_ITS | Encounter Summary ---
Author Organization [facility] Address [address] [place] [address] Care Team Providers Care Battalion Fire Chief Name Role Phone Diana Martinez Primary Care Provider +[phone]- [phone] Carl Goodman MD Unavailable Osmar Chicas MD Unavailable [phone] Encounter Details Date Type Department Care Team (Late st Contact Info) Description 12/18/2022 Scanned Document [facility] Department of Internal Medicine [place] [facility] [address] [place] [address] Diana Martinez PA [address] [place] [address] Social History Tobacco Use Types [...] on filedocumented in this encounter Care Teams Battalion Fire Chief Relationship Specialty Start Date End Date Diana Martinez PA [address] [place], [place] [phone] PCP - General 01/03/22 Carl Goodman MD [address] [address] Surgery, Orthopedic 01/03/22 Osmar Chicas MD [address] [place] [address] Cardiovascular Disease 01/03/22 documented as of this encounter
--- OUTSIDE RECORDS SUMMARY | 2025-05-30 18:44 | XMS_ITS | Encounter Summary ---
Author Organization [facility] Address [address] [place] [address] Care Team Providers Care Rippler Name Role Phone Diana Martinez Primary Care Provider +1- [phone] Carl Goodman MD Unavailable Osmar Chicas MD Unavailable [phone] Encounter Details Date Type Department Care Team (Late st Contact Info) Description 02/10/2023 Scanned Document [facility] Physicians Department of Internal Medicine [place] [address] [place] [address] Diana Martinez PA [address] [place], [place] [phone] Social History Tobacco Use Types Packs/Day Years [...] on filedocumented in this encounter Care Teams Rippler Relationship Specialty Start Date End Date Diana Martinez PA [address] [place] [address] PCP - General 01/03/22 Carl Goodman MD [address] [address] Surgery, Orthopedic 01/03/22 Osmar Chicas MD [address] [place] [id number] Cardiovascular Disease 01/03/22 documented as of this encounter
--- OUTSIDE RECORDS SUMMARY | 2025-05-30 18:44 | XMS_ITS | Encounter Summary ---
Author Organization [facility] Address [address] [place] [address] Care Team Providers Care Instructional Support Assistant Name Role Phone Diana Martinez Primary Care Provider [phone]- [phone] Carl Goodman MD Unavailable Osmar Chicas MD Unavailable [phone] Encounter Details Date Type Department Care Team (Late st Contact Info) Description 12/07/2022 Scanned Document [facility] Department of Internal Medicine [place] [address] [place] [address] Diana Martinez PA [address] [place] [address] Social History Tobacco Use Types [...] on filedocumented in this encounter Care Teams Instructional Support Assistant Relationship Specialty Start Date End Date Diana Martinez PA [address] [place], [place] [phone] PCP - General 01/03/22 Carl Goodman MD [address] [address] Surgery, Orthopedic 01/03/22 Osmar Chicas MD [address] [place] [address] Cardiovascular Disease 01/03/22 documented as of this encounter
--- OUTSIDE RECORDS SUMMARY | 2025-05-30 18:44 | XMS_ITS | Encounter Summary ---
Author Organization [facility] Address [address] [place] [address] Care Team Providers Care Complaint Inspector Name Role Phone Diana Martinez Primary Care Provider [phone]- [phone] Carl Goodman MD Unavailable Osmar Chicas MD Unavailable [phone] Encounter Details Date Type Department Care Team (Late st Contact Info) Description 10/13/2023 Scanned Document [facility] Physicians Department of Internal Medicine [place] [address] [place] [address] Diana Martinez PA [address] [place], [place] [phone] Social History Tobacco Use Types Packs/Day Years [...] on filedocumented in this encounter Care Teams Complaint Inspector Relationship Specialty Start Date End Date Diana Martinez PA [address] [place] [address] PCP - General 01/03/22 Carl Goodman MD [address] [address] Surgery, Orthopedic 01/03/22 Osmar Chicas MD [address] [place] [id number] Cardiovascular Disease 01/03/22 documented as of this encounter
--- OUTSIDE RECORDS SUMMARY | 2025-05-30 18:44 | XMS_ITS | Clinical Summary ---
Author Organization Formerly [facility] Address [address] [place] [address] Care Team Providers Care Executive Relations Specialist Name Role Phone Diana Martinez Primary Care Provider [phone] Carl Goodman MD Unavailable Osmar Chicas MD Unavailable [phone] Allergies Active Allergy Reactions Criticality Noted Date [...] - T d or Tdap) 11/08/2022 11/08/2012 RSV Vaccine 60 years and older and Patients (1 - Risk 60-74 years 1-dose series) 2025 Influenza Vaccine 04/07/2025 05/27/2023, 06/07/2010 COVID-19 Vaccine (4 - 2024-2 6 season) 2025 07/08/2021, 10/19/2020, 09/28/2020 Hepatitis B Vaccines Aged Out No long er eligible based on patient's age to complete this topic Medical Devices Implanted Type Area 3D Modeler Device Identifier Shelf Expiration Date Model / Serial / Lot 193.334 Spacer Spinal [id number] Rise-L 10d Nonst - [id number] Implanted:Qty: 2 on 02/05/2022 by Carl Goodman MD at [facility] Cage N/A: Spine Lumbar [employer] 193.334 / / 6.5x55 Voyager Mas Screw Implanted:Qty: 2 on 02/05/2022 by Carl Goodman MD at [facility] Screw N/A: Spine Lumbar [employer] MINIMALLY INVASIVE T [id number] / / [id number] Screw Set 5.5/6mm Cd Hzn Soleral Vygr Nonst Lf - [id number] Implanted:Qty: 6 on 02/05/2022 by Carl Goodman MD at [facility] Screw N/A: Spine Lumbar [employer] MINIMALLY INVASIVE T [id number] / / [id number] Screw Bone Spine Cd Hzn Vygr 50mm 6.5mm Ma Nonst 5.5mm Nestor - [id number] Implanted:Qty: 2 on 02/05/2022 by Carl Goodman MD at [facility] Spine N/A: Spine Lumbar [employer] MINIMALLY INVASIVE T [id number] / / [id number] Screw Bone Spine Cd Hzn Vygr 45mm 6.5mm Ma Nonst 5.5mm Nestor - [id number] Implanted:Qty: 2 on 02/05/2022 by Carl Goodman MD at [facility] Spine N/A: Spine Lumbar [employer] MINIMALLY INVASIVE T [id number] / / [id number] Tab Fixation 5.5/6mm Spine Travograph Operator Sleeve - [id number] Implanted:Qty: 12 on 02/05/2022 by Carl Goodman MD at [facility] Spine N/A: Spine Lumbar [employer] MINIMALLY INVASIVE T [id number] / / [id number] Graft Bone 23mm 14mm Infs Sm Spine Rhbmp-2 Bvn Collagen - [id number] Implanted:Qty: 1 on 02/05/2022 by Carl Goodman MD at [facility] Tissue N/A: Spine Lumbar [employer] MINIMALLY INVASIVE T 06/06/2024 [id number] / / [id number] Graft Bone Kore Fiber Marcial Bone Fiber 5cc Algrf Mld High - [id number] Implanted:Qty: 1 on 02/05/2022 by Carl Goodman MD at [facility] Tissue N/A: Spine Lumbar [employer] FOU 02/21/2024 [id number] / [id number] / 5.5/6.0 Sv Cap Implanted:Qty: 6 on 02/05/2022 by Carl Goodman MD at [facility] N/A: Spine Lumbar [employer] MINIMALLY INVASIVE T [id number] / / 5.5 Ccm Prec Nestor 80mm Implanted:Qty: 2 on 02/05/2022 by Carl Goodman MD at [facility] N/A: Spine Lumbar [employer] MINIMALLY INVASIVE T [id number] / / Explanted Type Area 3D Modeler Device Identifier Shelf Expiration Date Model / Serial / Lot [id number] Screw Bone Spine Schnz 120mm 4mm - [id number] Explanted:Qty: 1 on 02/05/2022 at [facility] Spine N/A: Spine Lumbar [employer] MINIMALLY INVASIVE T [id number] / / Description:supply item Insurance [facility] Advance Directives * Full Code (Latest Code Status on File) Date Activated Date Inactivated Comments 02/05/2022 6:30 PM * Full Code Date Activated Date Inactivated Comments 02/05/2022 10:09 AM 02/05/2022 6:30 PM Care Teams Executive Relations Specialist Relationship Specialty Start Date End Date Diana Martinez PA [address] [place] [address] PCP - General 01/03/22 Carl Goodman MD [address] [address] Surgery, Orthopedic 01/03/22 Osmar Chicas MD [address] [place] [address] Cardiovascular Disease 01/03/22
--- OUTSIDE RECORDS SUMMARY | 2025-05-30 18:44 | XMS_ITS | Encounter Summary ---
Author Organization [facility] Address [address] [place] [address] Care Team Providers Care Employment Recruiter Name Role Phone Diana Martinez Primary Care Provider [phone]- [phone] Carl Goodman MD Unavailable Osmar Chicas MD Unavailable [phone] Encounter Details Date Type Department Care Team (Late st Contact Info) Description 05/01/2022 Erroneous Encounter [facility] CON[facility] DEPT [address] [place] [address] ProviderLorena MD Social History Tobacco [...] on filedocumented in this encounter Care Teams Employment Recruiter Relationship Specialty Start Date End Date Diana Martinez PA [address] [place] [address] PCP - General 01/03/22 Carl Goodman MD 31 [facility] [address] [place] [address] Surgery, Orthopedic 01/03/22 Osmar Chicas MD [address] [place] [address] Cardiovascular Disease 01/03/22 documented as of this encounter
--- OUTSIDE RECORDS SUMMARY | 2025-05-30 18:44 | XMS_ITS | Clinical Summary ---
Author Organization [address] Address [address] [place] [address] M[place] Calix [phone] Phone Care Team Providers Care Terrazzo Supervisor Name Role Phone Frank Berry MD Primary [...] 12/24/2023 PTSD (post-traumatic stress disorder) 12/24/2023 Seizures (CMS/HCC V24, CMS/HCC V28) 12/24/2023 Resolved Problems Problem Noted Date Diagnosed Date Resolved Date Vitamin B12 deficiency 12/24/202308/01 Vitamin D deficiency 12/24/2023 024 Encounters Date Type Department Care Team Description 04/10/2025 10:30 AM EDT Treatment Pelvic Floor Rehabilitation [address] [phone] Yessica Sanchez PT Urinary incontinence, unspecified type (Primary Dx); Constipation, unspecified constipation type; Urgency of urination; Pelvic pain; Muscle spasm; Muscle weakness 03/17/2025 Telephone Adult [address] [phone] Floyd Romero MD 03/15/2025 3:09 PM EDT - 03/15/2025 11:59 PM EDT Hospital Encounter [address] [phone] Annual wellness visit; Routine general medical examination at a health care facility; Right hip pain Discharge Disposition: Home or Self Care 03/15/2025 3:09 PM EDT - 03/15/2025 11:59 PM EDT Hospital Encounter [address] [phone] Annual wellness visit; Routine general medical examination at a health care facility; Chronic low back pain, unspecified back pain laterality, unspecified whether sciatica present Discharge Disposition: Home or Self Care 03/15/2025 2:00 PM EDT Office Visit [address] [phone] Frank Berry MD Annual wellness visit (Primary [...] deficiency 12/24/2023 Vitamin D deficiency 12/24/2023 Epilepsy ([facility] V24, [facility] V28) Stroke ([facility] V24, [facility] V28) Family History Medical History Relation Name Comments Hypertension Brother back issues Celiac disease Daughter Alicja Hypertension Father Anthony Prostate cancer Father Anthonym HTN Pancreatic cancer [...] care for your loved ones. For example, exceptional children teacher assistant or elderly care for an older adult? [...] this topic Medical Devices Implanted Type Area Basketball Referee Device Identifier Shelf Expiration Date Model / Serial / Lot Surgiflo Hemostatic Matrix [facility] [id number] Implanted:Qty : 2 on 08/09/2021 by Andrea Polanco DO Implants N/A: Spine Cervical [facility] [employer] 11/04/2022 1971 / / [id number] Size 5 Standard Tapered Stem Cementless Implanted:Qty : 1 on 12/29/2022 by Clifton Esteban MD Joints Right: Hip [id number] 10/01/2027 / / [id number] 36 +4 Femoral Head Implanted:Qty : 1 on 12/29/2022 by Clifton Esteban MD Joints Right: Hip [id number] 07/04/2026 / / [id number] Description:Renata 36mm +4mm Spacer Vikos 14.5x11.5x8mm 7d Stry-Spin [id number] 39002 - [id number] Implanted:Qty : 1 on 08/09/2021 by Andrea Polanco DO N/A: Spine Cervical [employer] 06/12/2025 2504-214 08L / [id number] / Spacer Vikos 14.5x11.5x7mm 7d Stry-Spin [id number] 66196 - [id number] Implanted:Qty : 1 on 08/09/2021 by Andrea Polanco DO N/A: Spine Cervical [employer] 10/24/2025 2504-214 07L / [id number] / Spacer Vikos 14.5x11.5x7mm 7d Stry-Spin 4526-14798q-[id number] 91059 - [id number] Implanted:Qty : 1 on 08/09/2021 by Andrea Polanco DO N/A: Spine Cervical [employer] 08/02/2025 2504-214 07L / [id number] / Plate Fluvanna 57mm 3 Level Bone Stry-K2m [id number] Implanted:Qty : 1 on 08/09/2021 by Andrea Polanco DO N/A: Spine Cervical [employer] [id number] 57V / / Screw Fluvanna Self-Start 4x16mm Stry-K2m [id number]- [id number] Implanted:Qty : 7 on 08/09/2021 by Andrea Polanco DO N/A: Spine Cervical [employer] 8801-040 16DA / / Screw Fluvanna 16mm 4.5mm Self St Stry-Howm [id number]- [id number] Implanted:Qty : 1 on 08/09/2021 by Andrea Polanco DO N/A: Spine Cervical [employer] 8801-045 16DA / / Screw Marie 6.5x20mm Crng-Manu [id number] 6 Implanted:Qty : 1 on 12/29/2022 by Clifton Esteban MD Right: Hip [employer] [id number] 10/02/2027 321.02 0 [id number] Marie Liner Ecima Neutral Offset Implanted:Qty : 1 on 12/29/2022 by Clifton Esteban MD Right: Hip [employer] 10/29/2027 322.03.6 36 / [id number] Hip Cup Marie Tpr 52mm Sz3 Crng-Manu [id number] 6960 Implanted:Qty : 1 on 12/29/2022 by Clifton Esteban MD Right: Hip [employer] [id number] 10/13/2027 321.03 .3 52 / [id number] Screw Marie 6.5x25mm Crng-Manu 321.025-51421 7 Implanted:Qty : 1 on 12/29/2022 by Clifton Esteban MD Right: Hip [employer] [id number] 09/02/2027 321.02 5 / [id number] Procedures Procedure Name Priority Date/Time Associated Diagnosis [...] visit Routine general medical examination at a [facility] care facility Lightheadedness VITAMIN B12 Routine 03/16/2025 8:24 AM EDT Annual wellness visit Routine general medical examination at a [facility] care facility Lightheadedness Unsteadiness XR HIP 2-3 [...] - 29.0 ug/L 03/20/2025 2:49 PM EDT [facility] Comment: Liver alkaline phosphatase can affect the measurement of bone specific alkaline phosphatase in this assay. Each 100 U/L of liver alkaline phosphatase contributes an additional 2.5 to 5.8 ug/L to the bone specific alkaline phosphatase result. Test performed at [facility], [address] , [place] [address] Ping Spencer MD, PhD - Appeals Reviewer Veteran Blood Venous blood specimen / Unknown Venipuncture / Unknown 03/16/2025 1:11 PM EDT 03/16/2025 1:11 PM EDT Frank Berry MD LAB BLOOD ORDERABLES Final Result [facility] [address] [place] [address] * Vitamin D 25 hydroxy (03/16/2025 1:11 PM EDT) Vit D, 25-Hydroxy 33.6 30.0 - 80.0 ng/mL LAB CHEMISTRY METHOD 03/16/2025 6:31 PM EDT [facility] Blood Venous blood specimen / Unknown Venipuncture / Unknown 03/16/2025 1:11 PM EDT 03/16/2025 1:11 PM EDT Frank Berry MD LAB BLOOD ORDERABLES Final Result [facility] [address] [place] [address], [place] [phone] * (ABNORMAL) Alkaline phosphatase (03/16/2025 1:11 PM EDT) Alkaline Phosphatase 135(H) 42 - 121 unit/L LAB CHEMISTRY METHOD 03/16/2025 5:42 PM EDT [facility] Blood Venous blood specimen / Unknown Venipuncture / Unknown 03/16/2025 1:11 PM EDT 03/16/2025 1:11 PM EDT Frank Berry MD LAB BLOOD ORDERABLES Final Result Performing Organization Address City/[facility]/ZIP Co de Phone Number [facility] [address] [place] [address], [place] [phone] * Thyroid stimulating hormone with reflex to free t4 and free t3 (03/16/2025 8:24 AM EDT) TSH 1.35 0.40 - 4.00 mcIU/mL LAB CHEMISTRY METHOD 03/16/2025 12:32 PM EDT [facility] Blood Venous blood specimen / Unknown Venipuncture / Unknown 03/16/2025 8:24 AM EDT 03/16/2025 8:24 AM EDT Frank Berry MD LAB BLOOD ORDERABLES Final Result Performing Organization Address City/[facility]/ZIP Co de Phone Number [facility] [address] [place] [address], [place] [phone] * Lipid panel with reflex to direct LDL (03/16/2025 8:24 AM EDT) Cholesterol 194 0 - 200 mg/dL LAB CHEMISTRY METHOD 03/16/2025 12:05 PM EDT [facility] Triglycerides 114 0 - 150 mg/dL LAB CHEMISTRY METHOD 03/16/2025 12:05 PM EDT [facility] HDL 98 >=40 mg/dL LAB CHEMISTRY METHOD 03/16/2025 12:05 PM EDT [facility] LDL Calculated 73 0 - 100 mg/dL LAB CHEMISTRY METHOD 03/16/2025 12:05 PM EDT [facility] VLDL Cholesterol Jai 22.8 mg/dL LAB CHEMISTRY METHOD 03/16/2025 12:05 PM EDT [facility] Non HDL Chol. (LDL+VLDL) 96 <145 mg/dL LAB CHEMISTRY METHOD 03/16/2025 12:05 PM EDT [facility] Chol/HDL Ratio 2.0 0.0 - 4.4 LAB CHEMISTRY METHOD 03/16/2025 12:05 PM EDT [facility] Blood Venous blood specimen / Unknown Venipuncture / Unknown 03/16/2025 8:24 AM EDT 03/16/2025 8:24 AM EDT us Frank Berry MD LAB BLOOD ORDERABLES Final Result [facility] [address] [place] [address], [place] [phone] * (ABNORMAL) CBC auto differential (03/16/2025 8:24 AM EDT) WBC 7.3 4.8 - 10.8 K/mcL LAB HEMETOLOGY METHOD 03/16/2025 10:37 AM [facility] RBC 4.70 3.80 - 4.80 M/mcL LAB HEMETOLOGY METHOD 03/16/2025 10:37 AM [facility] Hemoglobin 13.2 11.5 - 16.0 g/dL LAB HEMETOLOGY METHOD 03/16/2025 10:37 AM [facility] Hematocrit 41.5 35.0 - 47.0 % LAB HEMETOLOGY METHOD 03/16/2025 10:37 AM [facility] MCV 89.2 79.0 - 98.0 FL LAB HEMETOLOGY METHOD 03/16/2025 10:37 AM [facility] MCH 28.4 27.0 - 32.0 pcg LAB HEMETOLOGY METHOD 03/16/2025 10:37 AM [facility] MCHC 31.8(L) 32.0 - 37.0 g/dL LAB HEMETOLOGY METHOD 03/16/2025 10:37 AM [facility] RDW 12.6 11.0 - 15.0 % LAB HEMETOLOGY METHOD 03/16/2025 10:37 AM [facility] Platelets 219 130 - 400 K/mcL LAB HEMETOLOGY METHOD 03/16/2025 10:37 AM [facility] MPV 9.0 7.0 - 11.0 FL LAB HEMETOLOGY METHOD 03/16/2025 10:37 AM [facility] NRBC 0.0 <1.0 % LAB HEMETOLOGY METHOD 03/16/2025 10:37 AM [facility] NRBC Absolute 0.00 <0.10 K/mcL LAB HEMETOLOGY METHOD 03/16/2025 10:37 AM [facility] Neutrophils Relative 59.6 % LAB HEMETOLOGY METHOD 03/16/2025 10:37 AM [facility] Lymphocytes Relative 28.7 % LAB HEMETOLOGY METHOD 03/16/2025 10:37 AM [facility] Monocytes Relative 9.1 % LAB HEMETOLOGY METHOD 03/16/2025 10:37 AM [facility] Eosinophils Relative 1.8 % LAB HEMETOLOGY METHOD 03/16/2025 10:37 AM [facility] Basophils Relative 0.5 % LAB HEMETOLOGY METHOD 03/16/2025 10:37 AM [facility] Immature Granulocytes Relative 0.3 % LAB HEMETOLOGY METHOD 03/16/2025 10:37 AM [facility] Neutrophils Absolute 4.37 1.50 - 7.00 K/mcL LAB HEMETOLOGY METHOD 03/16/2025 10:37 AM [facility] Lymphocytes Absolute 2.11 1.00 - 5.00 K/mcL LAB HEMETOLOGY METHOD 03/16/2025 10:37 AM EDT [facility] Monocytes Absolute 0.67 0.20 - 1.00 K/[facility] HEMETOLOGY METHOD 03/16/2025 10:37 AM EDT [facility] Eosinophils Absolute 0.13 0.00 - 0.50 K/[facility] HEMETOLOGY METHOD 03/16/2025 10:37 AM EDT [facility] Basophils Absolute 0.04 0.00 - 0.20 K/[facility] HEMETOLOGY METHOD 03/16/2025 10:37 AM EDT [facility] Immature Granulocytes Absolute 0.02 0.00 - 0.03 K/[facility] HEMETOLOGY METHOD 03/16/2025 10:37 AM EDT [facility] Blood Venous blood specimen / Unknown Venipuncture / Unknown 03/16/2025 8:24 AM EDT 03/16/2025 8:24 AM EDT us Frank Berry MD LAB BLOOD ORDERABLES Final Result [facility] [address] [place] [address], [place] [phone] * Phosphorus (03/16/2025 8:24 AM EDT) Phosphorus 3.9 2.5 - 4.5 mg/dL LAB CHEMISTRY METHOD 03/16/2025 12:03 PM EDT [facility] Blood Venous blood specimen / Unknown Venipuncture / Unknown 03/16/2025 8:24 AM EDT 03/16/2025 8:24 AM EDT us Frank Berry MD LAB BLOOD ORDERABLES Final Result [facility] [address] [place] [address], [place] [phone] * Magnesium (03/16/2025 8:24 AM EDT) Magnesium 2.6 1.9 - 2.6 mg/dL LAB CHEMISTRY METHOD 03/16/2025 11:32 AM EDT [facility] Blood Venous blood specimen / Unknown Venipuncture / Unknown 03/16/2025 8:24 AM EDT 03/16/2025 8:24 AM EDT Frank Berry MD LAB BLOOD ORDERABLES Final Result [facility] [address] [place] [address], [place] [phone] * Vitamin B12 (03/16/2025 8:24 AM EDT) Pathologist [facility] Vitamin B-12 884 250 - 900 pcg/mL LAB CHEMISTRY METHOD 03/16/2025 12:03 PM EDT [facility] Blood Venous blood specimen / Unknown Venipuncture / Unknown 03/16/2025 8:24 AM EDT 03/16/2025 8:24 AM EDT Frank Berry MD LAB BLOOD ORDERABLES Final Result [facility] [address] [place] [address], [place] [phone] * (ABNORMAL) Comprehensive metabolic panel (03/16/2025 8:24 AM EDT) Pathologist [facility] Sodium 141 133 - 145 mmol/L LAB CHEMISTRY METHOD 03/16/2025 12:03 PM EDT [facility] Potassium 3.9 3.5 - 5.5 mmol/L LAB CHEMISTRY METHOD 03/16/2025 12:03 PM EDT [facility] Chloride 106 96 - 110 mmol/L LAB CHEMISTRY METHOD 03/16/2025 12:03 PM [facility] CO2 30 21 - 32 mmol/L LAB CHEMISTRY METHOD 03/16/2025 12:03 PM [facility] Anion Gap 5 3 - 11 LAB CHEMISTRY METHOD 03/16/2025 12:03 PM [facility] Glucose 95 70 - 100 mg/dL LAB CHEMISTRY METHOD 03/16/2025 12:03 PM [facility] BUN 12 5 - 25 mg/dL LAB CHEMISTRY METHOD 03/16/2025 12:03 PM [facility] Creatinine 0.90 0.50 - 1.10 mg/dL LAB CHEMISTRY METHOD 03/16/2025 12:03 PM [facility] eGFR 74 >=60 mL/min/1. 73m2 LAB CHEMISTRY METHOD 03/16/2025 12:03 PM [facility] Comment:Calculation based on the Chronic Kidney Disease Epidemiology Collaboration (CKD-EPI) equation refit without adjustment for race. BUN/Creatinine Ratio 13.3 LAB CHEMISTRY METHOD 03/16/2025 12:03 PM [facility] Calcium 9.5 8.5 - 10.5 mg/dL LAB CHEMISTRY METHOD 03/16/2025 12:03 [facility] AST (SGOT) 18 10 - 42 unit/L LAB CHEMISTRY METHOD 03/16/2025 12:03 [facility] ALT (SGPT) 25 10 - 60 unit/L LAB CHEMISTRY METHOD 03/16/2025 12:03 PM [facility] Alkaline Phosphatase 140(H) 42 - 121 unit/L LAB CHEMISTRY METHOD 03/16/2025 12:03 PM [facility] Total Protein 7.2 6.0 - 8.0 g/dL LAB CHEMISTRY METHOD 03/16/2025 12:03 PM [facility] Albumin 4.2 3.2 - 5.0 g/dL LAB CHEMISTRY METHOD 03/16/2025 12:03 PM EDT [facility] Total Bilirubin 0.4 0.0 - 1.4 mg/dL LAB CHEMISTRY METHOD 03/16/2025 12:03 PM EDT [facility] Blood Venous blood specimen / Unknown Venipuncture / Unknown 03/16/2025 8:24 AM EDT 03/16/2025 8:24 AM EDT us Frank Berry MD LAB BLOOD ORDERABLES Final Result [facility] [address] [place] [address], [place] [phone] * XR Hip 2-3 Views Right (03/15/2025 [...] Signed Date: 03/15/2025 16:10 ET Workstation ID: [id number] Transcribed By: Self Edit Transcribed Date: 03/15/2025 [...] Signed Date: 03/15/2025 16:10 ET Workstation ID: [id number] Transcribed By: Self Edit Transcribed Date: 03/15/2025 [...] Signed Date: 03/15/2025 16:08 ET Workstation ID: [id number] Transcribed By: Self Edit Transcribed Date: 03/15/2025 [...] posterior fusion hardware with titanium cages from [id number]. There is mild curvature of the [...] Signed Date: 03/15/2025 16:08 ET Workstation ID: [id number] Transcribed By: Self Edit Transcribed Date: 03/15/2025 16:06 ET us Frank Berry MD IMG XR PROCEDURES Final Res ult * HIV 1,2 antibody, p24 antigen with reflex to differentiation (08/12/2024 7:54 AM EST) HIV Combo AB/AG Negative Negative LAB CHEMISTRY METHOD 08/12/2024 10:52 AM EST [facility] Blood Venous blood specimen / Unknown Venipuncture / Unknown 08/12/2024 7:54 AM EST 08/12/2024 7:54 AM EST [facility]ative [facility] - 08/12/2024 10:52 AM EST This [...] MD LAB BLOOD ORDERABLES F inal Result [facility] [address] [place] [address], [place] [phone] * SCREENING MAMMOGRAPHY BI 2-[employer] [...] - [place] [employer] MEDICARE Care Teams Terrazzo Supervisor Relationship Specialty Start Date End Date Frank Berry MD [address] [place] [address] PCP - General Internal Medicine 03/15/25
--- OUTSIDE RECORDS SUMMARY | 2025-05-30 18:44 | XMS_ITS | Encounter Summary ---
Author Organization [facility] Address [address] [place] [address] Care Team Providers Care Surgeon Chief Name Role Phone Diana Martinez Primary Care Provider [phone] Carl Goodman MD Unavailable Osmar Chicas MD Unavailable [phone] Encounter Details Date Type Department Care Team (Late st Contact Info) Description 12/15/2022 Scanned Document [facility] Department of Internal Medicine [place] [address] [place] [address] Diana Martinez PA [address] [place] [address] Social History Tobacco Use Types [...] on filedocumented in this encounter Care Teams Surgeon Chief Relationship Specialty Start Date End Date Diana Martinez PA [address] [place], [place] [id number] PCP - General 01/03/22 Carl Goodman MD [address] [address] Surgery, Orthopedic 01/03/22 Osmar Chicas MD [address] [place] [address] Cardiovascular Disease 01/03/22 documented as of this encounter
--- OUTSIDE RECORDS SUMMARY | 2025-05-30 18:44 | XMS_ITS | Encounter Summary ---
Author Organization [facility] Address [address] [place] [address] Care Team Providers Care Electrolog Operator Name Role Phone Diana Martinez Primary Care Provider [phone] Carl Goodman MD Unavailable Osmar Chicas MD Unavailable [phone] Encounter Details Date Type Department Care Team (Late st Contact Info) Description 06/19/2022 Erroneous Encounter [facility] CONVERSION DEPT [address] [place] [address] Brian Chong APRN [address] [place], [place] [id number] Social History Tobacco Use Types Packs/Day Years [...] on filedocumented in this encounter Care Teams Electrolog Operator Relationship Specialty Start Date End Date Diana Martinez PA [address] [place] [address] PCP - General 01/03/22 Carl Goodman MD [address] [place] [address] Surgery, Orthopedic 01/03/22 Osmar Chicas MD [address] [place] [id number] Cardiovascular Disease 01/03/22 documented as of this encounter
--- OUTSIDE RECORDS SUMMARY | 2025-05-30 18:44 | XMS_ITS | Encounter Summary ---
Author Organization [facility] Address [address] [place] [address] Care Team Providers Care Regulatory Administrator Name Role Phone Diana Martinez Primary Care Provider +1- [phone] Carl Goodman MD Unavailable Osmar Chicas MD Unavailable [phone] Encounter Details Date Type Department Care Team (Late st Contact Info) Description 10/23/2023 Scanned Document [facility] Department of Internal Medicine [place] [address] [place] [address] Diana Martinez PA [address] [place], [place] [id number] Social History Tobacco Use Types Packs/Day Years [...] on filedocumented in this encounter Care Teams Regulatory Administrator Relationship Specialty Start Date End Date Diana Martinez PA [address] [place] [address] PCP - General 01/03/22 Carl Goodman MD [address] [address] Surgery, Orthopedic 01/03/22 Osmar Chicas MD [address] [place] [id number] Cardiovascular Disease 01/03/22 documented as of this encounter
--- OUTSIDE RECORDS SUMMARY | 2025-05-30 18:44 | XMS_ITS | Encounter Summary ---
Author Organization [facility] Address [address] [place] [address] Care Team Providers Care Wet Plant Operator Name Role Phone Diana Martinez Primary Care Provider Carl Goodman MD Unavailable Osmar Chicas MD Unavailable Encounter Details Date Type Department Care Team (Late st Contact Info) Description 05/20/2022 Erroneous Encounter OA CONVERSION DEPT [address] [place] [address] Anthony Landeros MD [address] [id number] Social History Tobacco Use Types Packs/Day Years [...] on filedocumented in this encounter Care Teams Wet Plant Operator Relationship Specialty Start Date End Date Diana Martinez PA [address] [place] [address] PCP - General 01/03/22 Carl Goodman MD [address] [address] Surgery, Orthopedic 01/03/22 Osmar Chicas MD [address] [address] Cardiovascular Disease 01/03/22 documented as of this encounter
--- OUTSIDE RECORDS SUMMARY | 2025-05-30 18:44 | XMS_ITS | Clinical Summary ---
Author Organization [facility] Address [address] [place] [address] Care Team Providers Care Appointment Specialist Name Role Phone Diana Martinez Primary Care Provider [phone]- [phone] Allergies Active Allergy Reactions Criticality Noted Date [...] this topic Medical Devices Implanted Type Area Station Jailer Device Identifier Shelf Expiration Date Model / Serial / Lot Surgiflo Hemostatic Matrix [id number] - [id number] Implanted:Qty : 2 on 08/09/2021 by Andrea Polanco DO at [facility] Hemostatic Agent Anterior: Spine Cervical [facility] [employer] 11/04/2022 2991 / / [id number] Size 5 Standard Tapered Stem Cementless Implanted:Qty : 1 on 12/29/2022 by Clifton Esteban MD at [facility] Total Joint Right: Hip [id number] 10/01/2027 / / [id number] +4 Femoral Head Implanted:Qty : 1 on 12/29/2022 by Clifton Esteban MD at [facility] Total Joint Right: Hip [id number] 07/04/2026 / / [id number] Description:Renata 36mm +4mm Acetabular Liner 36mm X 52\54 10 Hooded E-Max - [id number] - [id number] Implanted:Qty : 1 on 04/07/2018 by Bairon Adame MD at [facility] Left: Hip RENOV[employer] 09/19/2022 1523-365 -254 / / [id number] Cancellous Bone Screw 6.5mm X 20mm - [id number] - [id number] Implanted:Qty : 1 on 04/07/2018 by Bairon Adame MD at [facility] Left: Hip RENOVI 10/26/2022 1501-865 -020 / / [id number] Acetabular Bone Screw 6.5mm X 30mm - [id number] - [id number] Implanted:Qty : 1 on 04/07/2018 by Bairon Adame MD at [facility] Left: Hip RENOVI 08/22/2021 1501-865 -030 / / [id number] Stem Tapered Femoral Extended-Late ral Offset 6.75mm - [id number] - [id number] Implanted:Qty : 1 on 04/07/2018 by Bairon Adame MD at [facility] Left: Hip RENOVI 07/21/2022 1401-922 -067 / / [id number] Biolox Delta Ceramic Femoral Head Sz 36mm -4 - [id number] - [id number] Implanted:Qty : 1 on 04/07/2018 by Bairon Adame MD at [facility] Left: Hip RENOVI 03/03/2022 1451-036 -004 / / [id number] Plate [place] 57mm 3 Level Bone Stry-K2m Cq22-66p29s-2 44710 - [id number] Implanted:Qty : 1 on 08/09/2021 by Andrea Polanco DO at [facility] Anterior: Spine Cervical [employer] [id number] 57V / / Screw [place] Self-Start 4x16mm Stry-K2m 8801-51568bt- 381438 - [id number] Implanted:Qty : 7 on 08/09/2021 by Andrea Polanco DO at [facility] Anterior: Spine Cervical [employer] 8801-040 16DA / / Screw [place] 16mm 4.5mm Self St Stry-Howm 8801-11612ts- 112920 - [id number] Implanted:Qty : 1 on 08/09/2021 by Andrea Polanco DO at [facility] Anterior: Spine Cervical [employer] 8801-045 16DA / / Spacer Vikos 14.5x11.5x8mm 7d Stry-Spin 3058-58061d-0 13808 - [id number] Implanted:Qty : 1 on 08/09/2021 by Andrea Polanco DO at [facility] Anterior: Spine Cervical [employer] 06/12/2025 2504-214 08L / [id number] 1053 / Spacer Vikos 14.5x11.5x7mm 7d Stry-Spin 3179-42210x-4 73977 - [id number] Implanted:Qty : 1 on 08/09/2021 by Andrea Polanco DO at [facility] Anterior: Spine Cervical [employer] 10/24/2025 2504-214 07L / [id number] 1076 / Spacer Vikos 14.5x11.5x7mm 7d Stry-Spin 4192-06341j-4 92603 - [id number] Implanted:Qty : 1 on 08/09/2021 by Andrea Polanco DO at [facility] Anterior: Spine Cervical [employer] 08/02/2025 2504-214 07L / [id number] 1041 / Hip Cup Marie Tpr 52mm Sz3 Crng-Manu 321.03.352-63 6960 - [id number] Implanted:Qty : 1 on 12/29/2022 by Clifton Esteban MD at [facility] Right: Hip [employer] [id number] 10/13/2027 321.03.3 52 / / [id number] Screw Marie 6.5x25mm Crng-Manu 321.025-94061 7 - [id number] Implanted:Qty : 1 on 12/29/2022 by Clifton Esteban MD at [facility] Right: Hip [employer] [id number] 09/02/2027 321.025 / / [id number] Screw Marie 6.5x20mm Crng-Manu 321.020-99192 6 - [id number] Implanted:Qty : 1 on 12/29/2022 by Clifton Esteban MD at [facility] Right: Hip [employer] [id number] 10/02/2027 321.020 / / [id number] Marie Liner Ecima Neutral Offset Implanted:Qty : 1 on 12/29/2022 by Clifton Esteban MD at [facility] Right: Hip [employer] 10/29/2027 322.03.6 36 / / [id number] Explanted Type Area Station Jailer Device Identifier Shelf Expiration Date Model / Serial / Lot Acetabular Shell Cluster Hole Sz 54mm - [id number] - [id number] Implanted:Qty: 1 on 04/07/2018 by Bairon Adame MD at [facility] Explanted:Qty: 1 on 02/11/2023 at [facility] Left: Hip RENOVI 12/13/2021 1501-121 -05 3553-2 Advance Directives For more information, please contact: [phone] Documents on File Type Date Recorded Patient Quick Sketch Artist Expl anation Advance Directive and Living Will [...] in the following way: discussion with healthcare bank representative . Full Code 08/09/2021 12:40 PM 08/12/2021 9:22 PM This code status was ascertained in the following way: discussion with patient . Care Teams Appointment Specialist Relationship Specialty Start Date End Date Diana Martinez PA [address] [place] [address] PCP - General Physician Strike On Machine Operator 12/29/22
--- OUTSIDE RECORDS SUMMARY | 2025-05-30 18:44 | XMS_ITS | Encounter Summary ---
Author Organization [facility] Address [address] [place] [address] Care Team Providers Care Pipe Coremaker Name Role Phone Diana Martinez Primary Care Provider [phone]- [phone] Carl Goodman MD Unavailable Osmar Chicas MD Unavailable [phone] Encounter Details Date Type Department Care Team (Late st Contact Info) Description 11/12/2022 Scanned Document [facility] Department of Internal Medicine [place] [address] [place] [address] Diana Martinez PA [address] [place] [address] Social History Tobacco Use Types [...] on filedocumented in this encounter Care Teams Pipe Coremaker Relationship Specialty Start Date End Date Diana Martinez PA [address] [place], [place] [id number] PCP - General 01/03/22 Carl Goodman MD [address] [address] Surgery, Orthopedic 01/03/22 Osmar Chicas MD [address] [place] [address] Cardiovascular Disease 01/03/22 documented as of this encounter
--- OUTSIDE RECORDS SUMMARY | 2025-05-30 18:44 | XMS_ITS | Encounter Summary ---
Author Organization [facility] Address [address] [place] [address] Care Team Providers Care Setter Automatic Spinning Lathe Name Role Phone Diana Martinez Primary Care Provider [phone]- [phone] Carl Goodman MD Unavailable Osmar Chicas MD Unavailable [phone] Encounter Details Date Type Department Care Team (Late st Contact Info) Description 12/01/2022 Scanned Document [facility] Department of Internal Medicine [place] [address] [place] [address] Diana Martinez PA [address] [place] [address] Social History Tobacco Use Types [...] on filedocumented in this encounter Care Teams Setter Automatic Spinning Lathe Relationship Specialty Start Date End Date Diana Martinez PA [address] [place], [place] [id number] PCP - General 01/03/22 Carl Goodman MD [address] [address] Surgery, Orthopedic 01/03/22 Osmar Chicas MD [address] [place] [address] Cardiovascular Disease 01/03/22 documented as of this encounter
--- OUTSIDE RECORDS SUMMARY | 2025-05-30 18:44 | XMS_ITS | Patient Health Record ---
Author Organization [facility] Address [address] [facility] [place] [address] Care Team Providers Care Vp Of Customer Experience Strategy Name Role Phone Floyd Romero Primary Care Provider Aleisha Holguin Unavailable [phone] Allergies Allergen (clinical drug ingredient) Drug/Non Drug [...] W/U Status Risk Notes Problem Plantar fibromatosis (32987024) Plantar fibromatosis (M72.2) Active confirmed Problem Plantar fascial fibromatosis (94271954) Plantar fasciitis, bilateral (M72.2) Active confirmed Vital Signs Blood pressure diastolic 80 mm Hg 09/21/2024 Height 5ft6in in 09/21/2024 Blood pressure systolic 120 mm Hg 09/21/2024 Weight 190 lbs 09/21/2024 BMI 30.66 kg/m2 09/21/2024 Encounters Encounter Location Date Provider [facility] [address] [place] [address] 07/13/2024 Aleisha Mahan Pain in right foot M79.671 ; Plantar fibromatosis M72.2 and 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 [facility] [address] [place] [address] 09/21/2024 Aleisha Mahan Plantar fibromatosis M72.[address] [address] 06/27/2024 Aleisha [facility]ica [facility] [address] 07/13/2024 Aleisha Perica [facility] [address] 07/13/2024 Aleisha Mahan Assessments Encounter Date Diagnosis [...] Date Coverage End Date [employer] Medicare Adv-[id number] [address] [address] [place] [address] [id number] LeidyNina rose Self - patient is the insured Medical (General) History Medical History History ICD Code Arthritis Back,Hip,and Knee pain Depression Seizures High Blood Pressure Numbness Chicken pox Joint implants/screws Surgical History Surgery Date(Month/Year) hip replacement back fusions endoscopy 07/12/24 colonoscopy 07/08/24
--- OUTSIDE RECORDS SUMMARY | 2025-05-30 18:44 | XMS_ITS | Encounter Summary ---
Author Organization [facility] Address [address] [place] [address] Care Team Providers Care Piler Name Role Phone Diana Martinez Primary Care Provider [phone]- [phone] aCrl Goodman MD Unavailable Osmar Chicas MD Unavailable [phone] Encounter Details Date Type Department Care Team (Late st Contact Info) Description 05/28/2023 Scanned Document [facility] Physicians Department of Internal Medicine [place] [address] [place] [address] Diana Martinez PA [address] [place], [place] [phone] Social History Tobacco Use Types Packs/Day Years [...] on filedocumented in this encounter Care Teams Piler Relationship Specialty Start Date End Date Diana Martinez PA [address] [place] [address] PCP - General 01/03/22 Carl Goodman MD [address] [address] Surgery, Orthopedic 01/03/22 Osmar Chicas MD [address] [place] [id number] Cardiovascular Disease 01/03/22 documented as of this encounter
--- OUTSIDE RECORDS SUMMARY | 2025-05-30 18:44 | XMS_ITS | Encounter Summary ---
Author Organization [facility] Address [address] [place] [address] Care Team Providers Care Librarian Head Name Role Phone Diana Martinez Primary Care Provider [phone]- [phone] Carl Goodman MD Unavailable Osmar Chicas MD Unavailable [phone] Encounter Details Date Type Department Care Team (Late st Contact Info) Description 10/12/2023 Scanned Document [facility] Physicians Department of Internal Medicine [place] [address] [place] [address] Diana Martinez PA [address] [place], [place] [phone] Social History Tobacco Use Types Packs/Day Years [...] on filedocumented in this encounter Care Teams Librarian Head Relationship Specialty Start Date End Date Diana Martinez PA [address] [place] [address] PCP - General 01/03/22 Carl Goodman MD [address] [address] Surgery, Orthopedic 01/03/22 Osmar Chicas MD [address] [place] [phone] Cardiovascular Disease 01/03/22 documented as of this encounter
--- OUTSIDE RECORDS SUMMARY | 2025-05-30 18:44 | XMS_ITS | Encounter Summary ---
Author Organization [facility] Address [address] [place] [address] Care Team Providers Care Food Service Associate Name Role Phone Brian Chong APRN Primary Care Provider [phone] Diana Martinez Primary Care Provider + [phone] Carl Goodman MD Unavailable Osmar Chicas MD Unavailable [phone] Encounter Details Date Type Department Care Team (Late st Contact Info) Description 10/04/2018 Scanned Document [facility] at [address] [id number] Spine Surgery, Scan Social History Tobacco Use [...] on filedocumented in this encounter Care Teams Food Service Associate Relationship Specialty Start Date End Date Brian Chong APRN [address] [place] [address] PCP - General Adult Health - PA/APNP/GEOSPATIAL APPLICATIONS DEVELOPER/DIRECTOR COMMUNICATIONS 09/29/18 01/02/22 Diana Martinez PA [address] [place] [phone] PCP - General 01/03/22 Carl Goodman MD [address] [address] Surgery, Orthopedic 01/03/22 Osmar Chicas MD [address] [facility] [address] [place] [phone] Cardiovascular Disease 01/03/22 documented as of this encounter
--- OUTSIDE RECORDS SUMMARY | 2025-05-30 18:44 | XMS_ITS | Encounter Summary ---
Author Organization [facility] Address [address] [place] [address] Care Team Providers Care Clin Nurse Spec Name Role Phone Diana Martinez Primary Care Provider [phone]- [phone] Carl Goodman MD Unavailable Osmar Chicas MD Unavailable [phone] Encounter Details Date Type Department Care Team (Late st Contact Info) Description 09/10/2023 Scanned Document [facility] Physicians Department of Internal Medicine [place] [address] [place] [address] Diana Martinez PA [address] [place], [place] [address] Social History Tobacco Use Types Packs/Day Years [...] on filedocumented in this encounter Care Teams Clin Nurse Spec Relationship Specialty Start Date End Date Diana Martinez PA [address] [place] [address] PCP - General 01/03/22 Carl Goodman MD [address] [address] Surgery, Orthopedic 01/03/22 Osmar Chicas MD [address] [place] [id number] Cardiovascular Disease 01/03/22 documented as of this encounter
== END 2025-05-30 16:51 | disposition home or self-care (01) ==
LOC: HO.HOP 16:41
PROVIDERS: PCP Internal Medicine; Visit Provider Clinical Nurse Specialist Psychiatric/Mental Health
DX: F33.1 Major depressive disorder, recurrent, moderate (principal); F41.1 Generalized anxiety disorder; F43.12 Post-traumatic stress disorder, chronic
CPT/HCPCS: 99214

== ENCOUNTER → 2025-06-14 10:09 | Outpatient (REF) | payer MEDICARE, MEDICAID, SELFPAY | LOC: HO.SL 10:09 | PROVIDERS: PCP Internal Medicine; Visit Provider Psychiatry & Neurology Neurology | DX: R06.83 Snoring (principal); G47.10 Hypersomnia, unspecified; G31.84 Mild cognitive impairment of uncertain or unknown etiology | CPT/HCPCS: 95806 ==

== ENCOUNTER → 2025-06-14 10:17 | Outpatient (BNV) | payer MEDICARE, MEDICAID, SELFPAY | PROVIDERS: PCP Internal Medicine; Visit Provider Psychiatry & Neurology Neurology | DX: R06.83 Snoring (principal) | CPT/HCPCS: 95806 ==

== ENCOUNTER 2025-06-26 13:04 | Outpatient (AMB) | payer MEDICARE, MEDICAID, SELFPAY ==
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
== END 2025-06-26 13:54 | disposition home or self-care (01) ==
LOC: HO.HOP 13:04
PROVIDERS: PCP Internal Medicine; Visit Provider Clinical Nurse Specialist Psychiatric/Mental Health
DX: F33.1 Major depressive disorder, recurrent, moderate (principal); F41.1 Generalized anxiety disorder; F43.12 Post-traumatic stress disorder, chronic
CPT/HCPCS: 99214

== ENCOUNTER → 2025-06-26 13:04 | Outpatient (BNVA) | payer MEDICARE, MEDICAID, SELFPAY | PROVIDERS: PCP Internal Medicine; Visit Provider Clinical Nurse Specialist Psychiatric/Mental Health | DX: F33.1 Major depressive disorder, recurrent, moderate (principal); F41.1 Generalized anxiety disorder; F43.12 Post-traumatic stress disorder, chronic | CPT/HCPCS: 99212 ==

== ENCOUNTER 2025-06-27 10:20 | Outpatient (AMB) | payer MEDICARE, MEDICAID, SELFPAY ==
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
[2025-06-27 10:24] VITALS: BP 118/74; PULSE 93; O2SAT 97; BMI 36.7
--- OUTSIDE RECORDS SUMMARY | 2025-06-27 12:15 | XMS_ITS | Encounter Summary ---
Author Organization [facility] Address [address] [place] [address] Care Team Providers Care Gem Setter Name Role Phone Diana Martinez Primary Care Provider [phone]- [phone] Carl Goodman MD Unavailable Osmar Chicas MD Unavailable [phone] Encounter Details Date Type Department Care Team (Late st Contact Info) Description 12/01/2022 Scanned Document [facility] Department of Internal Medicine [place] [address] [place] [address] Diana Martinez PA [address] [place] [address] Social History Tobacco Use Types [...] on filedocumented in this encounter Care Teams Gem Setter Relationship Specialty Start Date End Date Diana Martinez PA [address] [place], [place] [id number] PCP - General 01/03/22 Carl Goodman MD [address] [address] Surgery, Orthopedic 01/03/22 Osmar Chicas MD [address] [place] [address] Cardiovascular Disease 01/03/22 documented as of this encounter
--- OUTSIDE RECORDS SUMMARY | 2025-06-27 12:15 | XMS_ITS | Encounter Summary ---
Author Organization [facility] Address [address] [place] [address] Care Team Providers Care Program Rep Name Role Phone Diana Martinez Primary Care Provider [phone]- [phone] Carl Goodman MD Unavailable Osmar Chicas MD Unavailable [phone] Encounter Details Date Type Department Care Team (Late st Contact Info) Description 11/12/2022 Scanned Document [facility] Department of Internal Medicine [place] [address] [place] [address] Diana Martinez PA [address] [place] [address] Social History Tobacco Use Types [...] on filedocumented in this encounter Care Teams Program Rep Relationship Specialty Start Date End Date Diana Martinez PA [address] [place], [place] [id number] PCP - General 01/03/22 Carl Goodman MD [address] [address] Surgery, Orthopedic 01/03/22 Osmar Chicas MD [address] [place] [address] Cardiovascular Disease 01/03/22 documented as of this encounter
--- OUTSIDE RECORDS SUMMARY | 2025-06-27 12:15 | XMS_ITS | Encounter Summary ---
Author Organization [facility] Address [address] [place] [address] Care Team Providers Care Electrician Helper Name Role Phone Diana Martinez Primary Care Provider [phone]- [phone] Carl Goodman MD Unavailable Osmar Chicas MD Unavailable [phone] Encounter Details Date Type Department Care Team (Late st Contact Info) Description 10/23/2023 Scanned Document [facility] Department of Internal Medicine [place] [address] [place] [address] Diana Martinez PA [address] [place], [place] [id number] Social History Tobacco Use Types Packs/Day Years [...] on filedocumented in this encounter Care Teams Electrician Helper Relationship Specialty Start Date End Date Diana Martinez PA [address] [place] [address] PCP - General 01/03/22 Carl Goodman MD [address] [address] Surgery, Orthopedic 01/03/22 Osmar Chicas MD [address] [place] [id number] Cardiovascular Disease 01/03/22 documented as of this encounter
--- OUTSIDE RECORDS SUMMARY | 2025-06-27 12:15 | XMS_ITS | Encounter Summary ---
Author Organization [facility] Address [address] [place] [address] Care Team Providers Care Payloader Machine Operator Name Role Phone Diana Martinez Primary Care Provider +- [phone] Carl Goodman MD Unavailable Osmar Chicas MD Unavailable [phone] Encounter Details Date Type Department Care Team (Late st Contact Info) Description 10/12/2023 Scanned Document [facility] Department of Internal Medicine [place] [address] [place] [address] Diana Martinez PA [address] [place], [place] [address] Social History Tobacco Use Types Packs/Day Years [...] on filedocumented in this encounter Care Teams Payloader Machine Operator Relationship Specialty Start Date End Date Diana Martinez PA [address] [place] [address] PCP - General 01/03/22 Carl Goodman MD [address] [address] Surgery, Orthopedic 01/03/22 Osmar Chicas MD [address] [place] [id number] Cardiovascular Disease 01/03/22 documented as of this encounter
--- OUTSIDE RECORDS SUMMARY | 2025-06-27 12:15 | XMS_ITS | Encounter Summary ---
Author Organization [facility] Address [address] [place] [address] Care Team Providers Care Schedule Planning Manager Name Role Phone Brian Chong APRN Primary Care Provider [phone] Diana Martinez Primary Care Provider + [phone] Carl Goodman MD Unavailable Osmar Chicas MD Unavailable [phone] Encounter Details Date Type Department Care Team (Late st Contact Info) Description 10/04/2018 Scanned Document [facility] [place] at [address] [id number] Spine Surgery, Scan Social History Tobacco Use [...] on filedocumented in this encounter Care Teams Schedule Planning Manager Relationship Specialty Start Date End Date Brian Chong APRN [address] [place] [address] PCP - General Adult Health - PA/APNP/SUPERVISOR GLYCERIN/MILLING MACHINE OPERATOR GEAR 09/29/18 01/02/22 Diana Martinez PA [address] [place] [id number] PCP - General 01/03/22 Carl Goodman MD [address] [address] Surgery, Orthopedic 01/03/22 Osmar Chicas MD [address] [facility] [address] [place] [id number] Cardiovascular Disease 01/03/22 documented as of this encounter
--- OUTSIDE RECORDS SUMMARY | 2025-06-27 12:15 | XMS_ITS | Encounter Summary ---
Author Organization [facility] Address [address] [place] [address] Care Team Providers Care Fruit Cutter Name Role Phone Diana Martinez Primary Care Provider [phone]- [phone] Carl Goodman MD Unavailable Osmar Chicas MD Unavailable [phone] Encounter Details Date Type Department Care Team (Late st Contact Info) Description 05/01/2022 Erroneous Encounter [facility] CONVERSION DEPT [address] [place] [address] ProviderLorena MD Social History Tobacco [...] on filedocumented in this encounter Care Teams Fruit Cutter Relationship Specialty Start Date End Date Diana Martinez PA [address] [place] [address] PCP - General 01/03/22 Carl Goodman MD 31 [facility] [address] [place] [address] Surgery, Orthopedic 01/03/22 Osmar Chicas MD [address] [place] [address] Cardiovascular Disease 01/03/22 documented as of this encounter
--- OUTSIDE RECORDS SUMMARY | 2025-06-27 12:15 | XMS_ITS | Clinical Summary ---
Author Organization [facility] Address [address] [place] [address] Care Team Providers Care Bell Cleaner Name Role Phone Diana Martinez Primary Care Provider +1- [phone] Allergies Active Allergy Reactions Criticality Noted Date [...] this topic Medical Devices Implanted Type Area Public Transit Specialist Device Identifier Shelf Expiration Date Model / Serial / Lot Surgiflo Hemostatic Matrix Jn-Ethi [id number] - [id number] Implanted:Qty : 2 on 08/09/2021 by Andrea Polanco DO at [facility] Hemostatic Agent Anterior: Spine Cervical [facility] [employer] 11/04/2022 2991 / / [id number] Size 5 Standard Tapered Stem Cementless Implanted:Qty : 1 on 12/29/2022 by Clifton Esteban MD at [facility] and [facility] Total Joint Right: Hip [id number] 10/01/2027 / / [id number] +4 Femoral Head Implanted:Qty : 1 on 12/29/2022 by Clifton Esteban MD at [facility] and [facility] Total Joint Right: Hip [id number] 07/04/2026 / / [id number] Description:Renata 36mm +4mm Acetabular Liner 36mm X 52\54 10 Hooded E-Max - 345018 - [id number] Implanted:Qty : 1 on 04/07/2018 by Bairon Adame MD at [facility] and [facility] Left: Hip RENOVI 09/19/2022 1523-365 -254 / / [id number] Cancellous Bone Screw 6.5mm X 20mm - 227884 - [id number] Implanted:Qty : 1 on 04/07/2018 by Bairon Adame MD at [facility] and [facility] Left: Hip [employer] 10/26/2022 1501-865 -020 / / [id number] Acetabular Bone Screw 6.5mm X 30mm - 025645 - [id number] Implanted:Qty : 1 on 04/07/2018 by Bairon Adame MD at [facility] and [facility] Left: Hip R[employer] 08/22/2021 1501-865 -030 / / [id number] Stem Tapered Femoral Extended-Late ral Offset 6.75mm - [id number] - [id number] Implanted:Qty : 1 on 04/07/2018 by Bairon Adame MD at [facility] and Med Left: Hip RENOVI 07/21/2022 1401-922 -067 / / [id number] Biolox Delta Ceramic Femoral Head Sz 36mm -4 - 024333 - [id number] Implanted:Qty : 1 on 04/07/2018 by Bairon Adame MD at [facility] and Med Left: Hip RENOVI 03/03/2022 1451-036 -004 / / [id number] Plate [place] 57mm 3 Level Bone Stry-K2m [id number] 77048 - [id number] Implanted:Qty : 1 on 08/09/2021 by Andrea Polanco DO at [facility] and Med Anterior: Spine Cervical [employer] QY78-20G 57V / / Screw [place] Self-Start 4x16mm Stry-K2m 8801-57302by- 637386 - [id number] Implanted:Qty : 7 on 08/09/2021 by Andrea Polanco DO at [facility] and Med Anterior: Spine Cervical [employer] 8801-040 16DA / / Screw [place] 16mm 4.5mm Self St Stry-Howm 8801-49508ib- 673057 - [id number] Implanted:Qty : 1 on 08/09/2021 by Andrea Polanco DO at [facility] and Med Anterior: Spine Cervical [employer] 8801-045 16DA / / Spacer Vikos 14.5x11.5x8mm 7d Stry-Spin [id number] 00253 - [id number] Implanted:Qty : 1 on 08/09/2021 by Andrea Polanco DO at [facility] and Med Anterior: Spine Cervical [employer] 06/12/2025 2504-214 08L / [id number] / Spacer Vikos 14.5x11.5x7mm 7d Stry-Spin 4823-35074a-9 53171 - [id number] Implanted:Qty : 1 on 08/09/2021 by Andrea Polanco DO at [facility] and Med Anterior: Spine Cervical [employer] 10/24/2025 2504-214 07L / [id number] / Spacer Vikos 14.5x11.5x7mm 7d Stry-Spin 9568-31022h-4 39603 - [id number] Implanted:Qty : 1 on 08/09/2021 by Andrea Polanco DO at [facility] and [facility] Anterior: Spine Cervical [employer] 08/02/2025 2504-214 07L / [id number] / Hip Cup Marie Tpr 52mm Sz3 Crng-Manu 321.03.352-63 6960 - [id number] Implanted:Qty : 1 on 12/29/2022 by Clifton Esteban MD at [facility] and [facility] Right: Hip [employer] [id number] 10/13/2027 321.03.3 52 / / [id number] Screw Marie 6.5x25mm Crng-Manu 321.025-16600 7 - [id number] Implanted:Qty : 1 on 12/29/2022 by Clifton Esteban MD at [facility] and [facility] Right: Hip [employer] [id number] 09/02/2027 321.025 / / [id number] Screw Marie 6.5x20mm Crng-Manu 321.020-25626 6 - [id number] Implanted:Qty : 1 on 12/29/2022 by Clifton Esteban MD at [facility] and [facility] Right: Hip [employer] [id number] 10/02/2027 321.020 / / [id number] Marie Liner Ecima Neutral Offset Implanted:Qty : 1 on 12/29/2022 by Clifton Esteban MD at [facility] and [facility] Right: Hip [employer] 10/29/2027 322.03.6 36 / / [id number] Explanted Type Area Public Transit Specialist Device Identifier Shelf Expiration Date Model / Serial / Lot Acetabular Shell Cluster Hole Sz 54mm - [id number] - [id number] Implanted:Qty: 1 on 04/07/2018 by Bairon Adame MD at [facility] and [facility] Explanted:Qty: 1 on 02/11/2023 at [facility] and Med Left: Hip RENOVI 12/13/2021 1501-121 -05 3553-2 Advance Directives For more information, please contact: [phone] Documents on File Type Date Recorded Patient Recycling Crew Supervisor Expl anation Advance Directive and Living [...] in the following way: discussion with healthcare operations representative . Full Code 08/09/2021 12:40 PM 08/12/2021 9:22 PM This code status was ascertained in the following way: discussion with patient . Care Teams Bell Cleaner Relationship Specialty Start Date End Date Diana Martinez PA [address] [place] [address] PCP - General Physician Director Of Property Management 12/29/22
--- OUTSIDE RECORDS SUMMARY | 2025-06-27 12:15 | XMS_ITS | Encounter Summary ---
Author Organization [facility] Address [address] [place] [address] Care Team Providers Care Branch General Manager Name Role Phone Diana Martinez Primary Care Provider +1- [phone] Carl Goodman MD Unavailable Osmar Chicas MD Unavailable [phone] Encounter Details Date Type Department Care Team (Late st Contact Info) Description 10/13/2023 Scanned Document [facility] Department of Internal Medicine [place] [address] [place] [address] Diana Martinez PA [address] [place], [place] [phone] Social History Tobacco Use Types Packs/Day Years [...] on filedocumented in this encounter Care Teams Branch General Manager Relationship Specialty Start Date End Date Diana Martinez PA [address] [place] [address] PCP - General 01/03/22 Carl Goodman MD [address] [address] Surgery, Orthopedic 01/03/22 Osmar Chicas MD [address] [place] [phone] Cardiovascular Disease 01/03/22 documented as of this encounter
--- OUTSIDE RECORDS SUMMARY | 2025-06-27 12:15 | XMS_ITS | Encounter Summary ---
Author Organization [facility] Address [address] [place] [address] Care Team Providers Care Valver Name Role Phone Diana Martinez Primary Care Provider Carl Goodman MD Unavailable Osmar Chicas MD Unavailable Encounter Details Date Type Department Care Team (Late st Contact Info) Description 05/20/2022 Erroneous Encounter [facility] CONVERSION DEPT [address] [place] [address] Anthony Landeros MD [address] [id number] Social History Tobacco Use Types Packs/Day Years [...] on filedocumented in this encounter Care Teams Valver Relationship Specialty Start Date End Date Diana Martinez PA [address] [place] [address] PCP - General 01/03/22 Carl Goodman MD [address] [address] Surgery, Orthopedic 01/03/22 Osmar Chicas MD [address] [address] Cardiovascular Disease 01/03/22 documented as of this encounter
--- OUTSIDE RECORDS SUMMARY | 2025-06-27 12:15 | XMS_ITS | Encounter Summary ---
Author Organization [facility] Address [address] [place] [address] Care Team Providers Care Business Management Analyst Name Role Phone Diana Martinez Primary Care Provider +[phone]- [phone] Carl Goodman MD Unavailable Osmar Chicas MD Unavailable [phone] Encounter Details Date Type Department Care Team (Late st Contact Info) Description 06/19/2022 Erroneous Encounter [facility] CONVERSION DEPT [address] [place] [address] Brian Chong APRN [address] [place], [place] [id number] Social History Tobacco Use Types Packs/Day Years [...] filedocumented in this encounter Care Teams Business Management Analyst Relationship Specialty Start Date End Date Diana Martinez PA [address] [place] [address] PCP - General 01/03/22 Carl Goodman MD [address] [place] [address] Surgery, Orthopedic 01/03/22 Osmar Chicas MD [address] [place] [id number] Cardiovascular Disease 01/03/22 documented as of this encounter
--- OUTSIDE RECORDS SUMMARY | 2025-06-27 12:15 | XMS_ITS | Encounter Summary ---
Author Organization [facility] Address [address] [place] [address] Care Team Providers Care Workers Compensation Attorney Name Role Phone Diana Martinez Primary Care Provider +[phone]- [phone] Carl Goodman MD Unavailable Osmar Chicas MD Unavailable [phone] Encounter Details Date Type Department Care Team (Late st Contact Info) Description 12/07/2022 Scanned Document [facility] Department of Internal Medicine [place] [address] [place] [address] Diana Martinez PA [address] [place] [address] Social History Tobacco Use Types [...] on filedocumented in this encounter Care Teams Workers Compensation Attorney Relationship Specialty Start Date End Date Diana Martinez PA [address] [place] [address] [place], [place] [phone] PCP - General 01/03/22 Carl Goodman MD [address] [address] Surgery, Orthopedic 01/03/22 Osmar Chicas MD [address] [place] [address] Cardiovascular Disease 01/03/22 documented as of this encounter
--- OUTSIDE RECORDS SUMMARY | 2025-06-27 12:16 | XMS_ITS | Encounter Summary ---
Author Organization Formerly [facility] Address [address] [place] [address] Care Team Providers Care Blow Off Worker Name Role Phone Diana Martinez Primary Care Provider [phone] Carl Goodman MD Unavailable Osmar Chicas MD Unavailable [phone] Encounter Details Date Type Department Care Team (Late st Contact Info) Description 08/25/2023 Scanned Document [facility] Physicians Department of Internal Medicine [place] [address] [place] [address] Diana Martinez PA [address] [place], [place] [id number] Social History Tobacco Use Types Packs/Day Years [...] on filedocumented in this encounter Care Teams Blow Off Worker Relationship Specialty Start Date End Date Diana Martinez PA [address] [place] [address] PCP - General 01/03/22 Carl Goodman MD [address] [address] Surgery, Orthopedic 01/03/22 Osmar Chicas MD [address] [place] [id number] Cardiovascular Disease 01/03/22 documented as of this encounter
--- OUTSIDE RECORDS SUMMARY | 2025-06-27 12:16 | XMS_ITS | Patient Health Record ---
Author Organization [facility] Address [address] [facility] [place] [address] Care Team Providers Care Campus Manager Name Role Phone Floyd Romero Primary Care Provider Aleisha Holguin Unavailable [phone] Allergies Allergen (clinical drug ingredient) Drug/Non Drug [...] W/U Status Risk Notes Problem Plantar fibromatosis (61553905) Plantar fibromatosis (M72.2) Active confirmed Problem Plantar fascial fibromatosis (64151072) Plantar fasciitis, bilateral (M72.2) Active confirmed Vital Signs Blood pressure diastolic 80 mm Hg 09/21/2024 Height 5ft6in in 09/21/2024 Blood pressure systolic 120 mm Hg 09/21/2024 Weight 190 lbs 09/21/2024 BMI 30.66 kg/m2 09/21/2024 Encounters Encounter Location Date Provider Diagnosis [facility] [address] [place] [address] 07/13/2024 Aleisha Mahan Pain in right foot M79.671 ; Plantar fibromatosis M72.2 and 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 [facility] [address] [place] [address] 09/21/2024 Aleisha Mahan Plantar fibromatosis M72.[address] [address] 06/27/2024 [facility] [address] 07/13/2024 [facility] [address] 07/13/2024 Aleisha Mahan Assessments Encounter Date Diagnosis [...] Date Coverage End Date [employer] Medicare [id number] [address] [address] [place] [address] [id number] LeidyNina rose Self - patient is the insured Medical (General) History Medical History History ICD Code Arthritis Back,Hip,and Knee pain Depression Seizures High Blood Pressure Numbness Chicken pox Joint implants/screws Surgical History Surgery Date(Month/Year) hip replacement back fusions endoscopy 07/12/24 colonoscopy 07/08/24
--- OUTSIDE RECORDS SUMMARY | 2025-06-27 12:16 | XMS_ITS | Encounter Summary ---
Author Organization [facility] Address [address] [place] [address] Care Team Providers Care Service Transformer Repair Supervisor Name Role Phone Diana Martinez Primary Care Provider [phone] Carl Goodman MD Unavailable Osmar Chicas MD Unavailable [phone] Encounter Details Date Type Department Care Team (Late st Contact Info) Description 09/10/2023 Scanned Document [facility] Department of Internal Medicine [place] [address] [place] [address] Diana Martinez PA [address] [place], [place] [id number] Social History Tobacco Use Types Packs/Day Years [...] on filedocumented in this encounter Care Teams Service Transformer Repair Supervisor Relationship Specialty Start Date End Date Diana Martinez PA [address] [place] [address] PCP - General 01/03/22 Carl Goodman MD [address] [address] Surgery, Orthopedic 01/03/22 Osmar Chicas MD [address] [place] [id number] Cardiovascular Disease 01/03/22 documented as of this encounter
--- OUTSIDE RECORDS SUMMARY | 2025-06-27 12:16 | XMS_ITS | Encounter Summary ---
Author Organization [facility] Address [address] [place] [address] Care Team Providers Care Inseam Leveler Name Role Phone Diana Martinez Primary Care Provider [phone] Carl Goodman MD Unavailable Osmar Chicas MD Unavailable [phone] Encounter Details Date Type Department Care Team (Late st Contact Info) Description 02/10/2023 Scanned Document [facility] Physicians Department of Internal Medicine [place] [address] [place] [address] Diana Martinez PA [address] [place], [place] [phone] Social History Tobacco Use Types Packs/Day Years [...] on filedocumented in this encounter Care Teams Inseam Leveler Relationship Specialty Start Date End Date Diana Martinez PA [address] [place] [address] PCP - General 01/03/22 Carl Goodman MD [address] [address] Surgery, Orthopedic 01/03/22 Osmar Chicas MD [address] [place] [phone] Cardiovascular Disease 01/03/22 documented as of this encounter
--- OUTSIDE RECORDS SUMMARY | 2025-06-27 12:16 | XMS_ITS | Encounter Summary ---
Author Organization [facility] Address [address] [place] [address] Care Team Providers Care Receiving Associate Store Name Role Phone Diana Martinez Primary Care Provider [phone] Carl Goodman MD Unavailable Osmar Chicas MD Unavailable [phone] Encounter Details Date Type Department Care Team (Late st Contact Info) Description 12/18/2022 Scanned Document [facility] Department of Internal Medicine [place] [address] [place] [address] Diana Martinez PA [address] [place] [address] Social History Tobacco Use Types [...] on filedocumented in this encounter Care Teams Receiving Associate Store Relationship Specialty Start Date End Date Diana Martinez PA [address] [place], [place] [phone] PCP - General 01/03/22 Carl Goodman MD [address] [address] Surgery, Orthopedic 01/03/22 Osmar Chicas MD [address] [place] [address] Cardiovascular Disease 01/03/22 documented as of this encounter
--- OUTSIDE RECORDS SUMMARY | 2025-06-27 12:16 | XMS_ITS | Encounter Summary ---
Author Organization [facility] Address [address] [place] [address] Care Team Providers Care Recyclable Materials Distributor Name Role Phone Diana Martinez Primary Care Provider [phone] Carl Goodman MD Unavailable Osmar Chicas MD Unavailable [phone] Encounter Details Date Type Department Care Team (Late st Contact Info) Description 12/15/2022 Scanned Document [facility] Department of Internal Medicine [place] [address] [place] [address] Diana Martinez PA [address] [place] [address] Social History Tobacco Use Types [...] on filedocumented in this encounter Care Teams Recyclable Materials Distributor Relationship Specialty Start Date End Date Diana Martinez PA [address] [place], [place] [id number] PCP - General 01/03/22 Carl Goodman MD [address] [address] Surgery, Orthopedic 01/03/22 Osmar Chicas MD [address] [place] [address] Cardiovascular Disease 01/03/22 documented as of this encounter
--- OUTSIDE RECORDS SUMMARY | 2025-06-27 12:16 | XMS_ITS | Clinical Summary ---
Author Organization [facility] Address [address] [place] [address] Care Team Providers Care Veterinary Dentist Name Role Phone Diana Martinez Primary Care Provider [phone] Carl Goodman MD Unavailable Osmar Chicas MD Unavailable [phone] Allergies Active Allergy Reactions Criticality Noted Date [...] C Virus Screening 1965 HIV Screening 1978 Pap Smear (Ages 21-65) 1986 Mammogram 2005 Colonoscopy 2010 Pneumococcal Vaccines 50+ (1 of 1 - PCV) 2015 RSV Vaccine 50 years and older and Patients (1 - Risk 50-74 years 1-dose series) 2015 Zoster (Shingles) Vaccine (1 of 2) 2015 DTaP/Tdap/Td Vaccines (2 - T d or Tdap) 11/08/2022 11/08/2012 Influenza Vaccine 04/07/2025 05/27/2023, 06/07/2010 COVID-19 Vaccine (4 - 2024-2 6 season) 2025 07/08/2021, 10/19/2020, 09/28/2020 Hepatitis B Vaccines Aged Out No long er eligible based on patient's age to complete this topic Medical Devices Implanted Type Area Supply Tech Device Identifier Shelf Expiration Date Model / Serial / Lot [id number] Spacer Spinal [id number] Rise-L 10d Nonst - [id number] Implanted:Qty: 2 on 02/05/2022 by Carl Goodman MD at [facility] Cage N/A: Spine Lumbar [employer] [id number] / / [id number] Voyager Mas Screw Implanted:Qty: 2 on 02/05/2022 by Carl Goodman MD at [facility] Screw N/A: Spine Lumbar [employer] MINIMALLY INVASIVE T [id number] / / [id number] Screw Set 5.5/6mm Cd Hzn Soleral Vygr Nonst Lf - [id number] Implanted:Qty: 6 on 02/05/2022 by Carl Goodman MD at [facility] Screw N/A: Spine Lumbar [employer] MINIMALLY INVASIVE T [id number] / / [id number] Screw Bone Spine Cd Hzn Vygr 50mm 6.5mm Ma Nonst 5.5mm Nestor - [id number] Implanted:Qty: 2 on 02/05/2022 by Carl Goodman MD at [facility] Spine N/A: Spine Lumbar [employer] MINIMALLY INVASIVE T [id number] / / [id number] Screw Bone Spine Cd Hzn Vygr 45mm 6.5mm Ma Nonst 5.5mm Nestor - [id number] Implanted:Qty: 2 on 02/05/2022 by Carl Goodman MD at [facility] Spine N/A: Spine Lumbar [employer] MINIMALLY INVASIVE T [id number] / / [id number] Tab Fixation 5.5/6mm Spine Buying Agent Sleeve - [id number] Implanted:Qty: 12 on 02/05/2022 by Carl Goodman MD at [facility] Spine N/A: Spine Lumbar [employer] MINIMALLY INVASIVE T [id number] / / [id number] Graft Bone 23mm 14mm Infs Sm Spine Rhbmp-2 Bvn Collagen - [id number] Implanted:Qty: 1 on 02/05/2022 by Carl Goodman MD at [facility] Tissue N/A: Spine Lumbar [employer] MINIMALLY INVASIVE T 06/06/2024 [id number] / / [id number] Graft Bone Kore Fiber Marcial Bone Fiber 5cc Algrf Mld High - [id number] Implanted:Qty: 1 on 02/05/2022 by Carl Goodman MD at [facility] Tissue N/A: Spine Lumbar [employer] FOU 02/21/2024 [id number] / [id number] / 5.5/6.0 Sv Cap Implanted:Qty: 6 on 02/05/2022 by Carl Goodman MD at [facility] N/A: Spine Lumbar [employer] MINIMALLY INVASIVE T [id number] / / 5.5 Ccm Prec Nestor 80mm Implanted:Qty: 2 on 02/05/2022 by Carl Goodman MD at [facility] N/A: Spine Lumbar [employer] MINIMALLY INVASIVE T [id number] / / Explanted Type Area Supply Tech Device Identifier Shelf Expiration Date Model / Serial / Lot [id number] Screw Bone Spine Schnz 120mm 4mm - [id number] Explanted:Qty: 1 on 02/05/2022 at [facility] Spine N/A: Spine Lumbar [employer] MINIMALLY INVASIVE T [id number] / / Description:supply item Insurance [facility] Advance Directives * Full Code (Latest Code Status on File) Date Activated Date Inactivated Comments 02/05/2022 6:30 PM * Full Code Date Activated Date Inactivated Comments 02/05/2022 10:09 AM 02/05/2022 6:30 PM Care Teams Veterinary Dentist Relationship Specialty Start Date End Date Diana Martinez PA [address] [place] [address] PCP - General 01/03/22 Carl Goodman MD [address] [address] Surgery, Orthopedic 01/03/22 Osmar Chicas MD [address] [place] [address] Cardiovascular Disease 01/03/22
--- OUTSIDE RECORDS SUMMARY | 2025-06-27 12:16 | XMS_ITS | Encounter Summary ---
Author Organization [facility] Address [address] [place] [address] Care Team Providers Care Counter Dish Carrier Name Role Phone Diana Martinez Primary Care Provider [phone] Carl Goodman MD Unavailable Osmar Chicas MD Unavailable [phone] Encounter Details Date Type Department Care Team (Late st Contact Info) Description 05/28/2023 Scanned Document [facility] Physicians Department of Internal Medicine [place] [address] [place] [address] Diana Martinez PA [address] [place], [place] [id number] Social History Tobacco Use Types Packs/Day Years [...] on filedocumented in this encounter Care Teams Counter Dish Carrier Relationship Specialty Start Date End Date Diana Martinez PA [address] [place] [address] PCP - General 01/03/22 Carl Goodman MD [address] [address] Surgery, Orthopedic 01/03/22 Osmar Chicas MD [address] [place] [id number] Cardiovascular Disease 01/03/22 documented as of this encounter
== END 2025-06-27 11:12 | disposition home or self-care (01) ==
LOC: HO.HSMS 10:21
PROVIDERS: PCP Internal Medicine; Visit Provider Psychiatry & Neurology Neurology
DX: G31.84 Mild cognitive impairment of uncertain or unknown etiology (principal); G43.909 Migraine, unspecified, not intractable, without status migrainosus; R51.9 Headache, unspecified; G91.9 Hydrocephalus, unspecified
CPT/HCPCS: 99214

== ENCOUNTER → 2025-06-27 10:20 | Outpatient (BNVA) | payer MEDICARE, MEDICAID, SELFPAY | PROVIDERS: PCP Internal Medicine; Visit Provider Psychiatry & Neurology Neurology | DX: G31.84 Mild cognitive impairment of uncertain or unknown etiology (principal); G43.909 Migraine, unspecified, not intractable, without status migrainosus; G91.9 Hydrocephalus, unspecified; R51.9 Headache, unspecified | CPT/HCPCS: 99212 ==

== ENCOUNTER 2025-07-24 11:00 | Outpatient (AMB) | payer MEDICARE, MEDICAID, SELFPAY ==
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
== END 2025-07-24 11:44 | disposition home or self-care (01) ==
LOC: HO.HOP 11:00
PROVIDERS: PCP Internal Medicine; Visit Provider Clinical Nurse Specialist Psychiatric/Mental Health
DX: F33.1 Major depressive disorder, recurrent, moderate (principal); F41.1 Generalized anxiety disorder; F43.12 Post-traumatic stress disorder, chronic
CPT/HCPCS: 99214

== ENCOUNTER → 2025-07-24 11:00 | Outpatient (BNVA) | payer MEDICARE, MEDICAID, SELFPAY | PROVIDERS: PCP Internal Medicine; Visit Provider Clinical Nurse Specialist Psychiatric/Mental Health | DX: F33.1 Major depressive disorder, recurrent, moderate (principal); F41.1 Generalized anxiety disorder; F43.12 Post-traumatic stress disorder, chronic | CPT/HCPCS: 99212 ==

== ENCOUNTER → 2025-07-30 20:00 | Outpatient (REF) | payer MEDICARE, MEDICAID, SELFPAY ==
--- OUTSIDE RECORDS SUMMARY | 2025-07-26 14:30 | XMS_ITS | Encounter Summary ---
Author Organization [facility] Address [address] [place] [address] Care Team Providers Care Market Research Senior Project Manager Name Role Phone Frank Berry MD Primary Care Provider [phone] Reason for Referral * Consultation (Routine) - Closed Specialty Diagnoses / Procedures Referred By Akilah blakely Referred To Contact Rheumatology Diagnoses Acute pain of right shoulder Generalized joint pain Fall, subsequent encounter Nic Macdonald NP [address], [place] Phone: tel: fax: [facility] [address] [address] Phone: tel: fax: Referral ID Status Reason Start Date Expiration Date V isits Requested Visits Authorized [id number] Closed Specialty Services Required 07/26/2025 07/26/2026 1 1 * Consultation (Routine) - Pending Review Specialty Diagnoses / Procedures Referred By Akilah blakely Referred To Contact Physical Therapy Diagnoses Generalized joint pain Fall, subsequent encounter Nic Macdonald NP [address], [place] Phone: tel: fax: Referral ID Status Reason Start Date Expiration Date Visits Requested Visits Authorized [id number] Pending Review Specialty Services Required 07/26/2026 1 1 * Consultation (Urgent) - Authorized Specialty Diagnoses / Procedures Referred By Akilah t Referred To Contact Orthopedic Surgery / Orthopaedic Surgery Diagnoses Acute pain of right shoulder Injury of right acromioclavicular joint, subsequent encounter Nic Macdonald NP [address], [place] Phone: tel: fax: Casimiro Colindres MD [address] [place] [address] Phone: tel:[phone] fax:[phone] Referral ID Status Reason Start Date Expiration Date Visits Requested Visits Authorized [id number] Authorized Consult and Treat 07/26/2025 07/26/2026 1 1 Reason for Visit * Reason Comments Follow-up Patient went to [facility] for shoulder injury. Patient fell at home and landed on her hands. Patient injured right shoulder from fall. Encounter Details Date Type Department Care Team (Late st Contact Info) Description 07/26/2025 2:30 PM EST Office Visit Adult Medicine [address] [phone] Nic Macdonald NP [address] [place] [address] Acute pain of right shoulder (Primary Dx); Injury of right acromioclavicular joint, subsequent encounter; Generalized joint pain; Fall, subsequent encounter Social History Tobacco Use Types Packs/Day Years Used Date Smoking Tobacco: Former Cigarettes 0 Q uit: 09/07/2017 Smokeless Tobacco: Never Tobacco [...] care for your loved ones. For example, rn maternal child or elderly care for an older adult? [...] Date Recorded What is your living situation? Unrecognized valu e 03/14/2025 Comments No Sex and Gender Information Value Date Recorded Sex Assigned at Female 09/14/2024 12:15 PM EST Legal Sex Female 9:59 AM EST Gender Identity Female 09/14/2024 12:15 PM EST Sexual Orientation Straight 09/14/2024 3: 25 PM EST documented as of this encounter Last Filed Vital Signs Vital Sign Reading Time Taken Comments Blood Pressure 108/78 07/26/2025 2:37 PM EST Pulse 91 07/26/2025 2:37 PM EST Temperature 36.3 C (97.3 F) 07/26/2025 2:37 PM EST Respiratory Rate - - Oxygen Saturation 99% 07/26/2025 2:37 PM EST Inhaled Oxygen Concentration - - Weight 108 kg (237 lb) 07/26/2025 2:37 PM EST Height 167.6 cm (5' 6 ) 07/26/2025 2:37 PM EST Body Mass Index 38.25 07/26/2025 2:37 PM EST documented in this encounter Progress Notes * Nic Macdonald NP - 07/26/2025 2:30 PM EST PATIENT'S PCP: Frank Berry MD LAST VISIT IN THIS DEPARTMENT: 07/25/2025 Nina Bella is a 60 y.o. (: 1965) female who presents today for: Chief Complaint Patient presents with Follow-up Patient went to urgent care for shoulder injury. Patient fell at home and landed on her hands. Patient injured right shoulder from fall. SUBJECTIVE History of Present Illness The patient is a 60-year-old female who presents for evaluation of right shoulder pain. She has experienced two falls within the past two weeks, with the second incident necessitating an urgent care visit due to exacerbation of her initial symptoms. During the second fall, she landed onher hands, resulting in a jolt that radiated up through her arms. This has significantly impaired her ability to move her arm into various positions. She reports discomfort in her right shoulder following the second fall, which she attributes to the position in which she fell. Additionally, she experiences pain that extends into her neck, depending on her activities. She has not yet initiated physical therapy for her shoulder but has been intermittently attending physical therapy sessions for the past 7 years due to other joint issues. 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 She has a history of two hip replacements, hip dislocation, shoulder surgery, and three spine surgeries. She reports persistent joint pain that often limits her daily activities.She also experiences difficulty in positioning her feet to move forward, which she believes contributed to her recent falls. Additionally, she notes that her knees tend to shift back and forth while walking, giving her the sensation that they momentarily dislocate before returning to their normal position. PAST SURGICAL HISTORY: - Two hip replacements - Hip dislocation - Shoulder surgery - Three spine surgeries Review Of System Review of Systems Constitutional: Negative. Cardiovascular: Negative. Musculoskeletal: Positive for arthralgias. Left shoulder injury s/p fall Skin: Negative. Neurological: Negative. The following portions of the patient's chart were reviewed in this encounter and updated as appropriate: OBJECTIVE Vitals: 07/26/25 1437 BP: 108/78 Pulse: 91 Temp: 36.3 ??C (97.3 ??F) TempSrc: Temporal SpO2: 99% Weight: 108 kg (237 lb) Height: 1.676 m (66 ) BP Readings from Last 5 Encounters: 07/26/25 108/78 03/15/25 120/72 09/29/24 139/83 08/01/24 110/70 03/09/24 116/74 Body mass index is 38.25 kg/m??. Plan is deferred until next visit Wt Readings from Last 5 Encounters: 07/26/25 108 kg (237 lb) 06/23/25 99.8 kg (220 lb) 03/15/25 94.8 kg (209 lb) 10/17/24 87.1 kg (192 lb) 09/29/24 89.4 kg (197 lb) Allergies[1] Active Medication: Current Outpatient Medications Medication Instructions amitriptyline (ELAVIL) 50 mg, Nightly aspirin 81 mg EC tablet 1 tablet, Daily clindamycin (CLEOCIN) 300 mg, 4 times daily clonazePAM (KLONOPIN) 0.5 mg, 2 times daily PRN DULoxetine (CYMBALTA) [address] capsule 1 capsule, Daily DULoxetine (CYMBALTA) [address] capsule 1 capsule, Daily hydroCHLOROthiazide (HYDRODIURIL) 25 mg, oral, Daily, Prescribed by Dr. Marcos lamoTRIgine (LaMICtal) 200 mg tablet 1 tablet, 2 times daily magnesium oxide 250 mg magnesium tablet 1 tablet, oral, Daily, Prescribed by Dr. Marcos methocarbamoL (ROBAXIN) 500 mg, oral, 4 times daily, Prescribed at Urgent Care risperiDONE (RISPERDAL) 0.25 mg, Daily rosuvastatin (CRESTOR) 10 mg, oral, Daily SUMAtriptan (IMITREX) 50 mg, As needed valsartan (DIOVAN) 40 mg, oral, Daily zolpidem (AMBIEN) 10 mg tablet 1 tablet, Daily Physical Exam Imaging No Pertinent Imaging Laboratory: CBC: Lab Results Component Value Date WBC 7.3 03/16/2025 HGB 13.2 03/16/2025 HCT 41.5 03/16/2025 MCV 89.2 03/16/2025 PLT 219 03/16/2025 Lab Results Component Value Date LDLCALC 73 03/16/2025 1. Acute pain of right shoulder 2. Injury of right acromioclavicular joint, subsequent encounter 3. Generalized joint pain 4. Fall, subsequent encounter Assessment & Plan 1. AC joint injury/Right shoulder pain S/P Fall: - Patient reports two falls in the past two weeks, with the second fall causing significant pain and difficulty moving her right arm. - X-ray suggests a low-grade AC joint injury. - Referral to orthopedics initiated for further evaluation and management. - Advised to take the x-ray to her orthopedic appointment. 2. 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 - Reports frequent joint pain and instability, leading to falls. - Referral to a manufacturing lead made for further evaluation of suspected Hermes- Danlos syndrome. 3. Frequent falls: - Reports frequent falls due to joint instability. - Physical therapy recommended to improve joint stability and mobility. - Referral to physical therapy made for joint exercises and fall safety training. Patient understands the plan and is in agreement with the plan. FOLLOW-UP: No follow-ups on file. Nic Macdonald NP [address] [address] I have obtained verbal consent from Nina Bella prior to the recording. I have advised Kirill Bella that she may refuse the recording and require the recording to be turned off at any timeduring this encounter. Today's documentation was made using voice recognition software.This note may contain grammatical errors secondary to this software. [1] Allergies Allergen Reactions Amoxicillin Hives and Rash rash Vibramycin [Doxycycline Calcium] Latex Itching C/O: itching C/O: itching Morphine Hives and Rash Other reaction(s): rash documented in this encounter Plan of Treatment Upcoming Encounters Date Type Department Care Team (Late st Contact Info) Description 08/18/2025 11:30 AM EST Consult Orthopedic Surgery - [place] [address] [address] Casimiro Colindres MD [address] [place] [address] Scheduled Referrals Name Type Priority Associated Diagnoses Orde r Schedule Ambulatory referral to Orthopedic Outpatient Referral Routine Acute pain of right shoulder Injury of right acromioclavicular joint, subsequent encounter 1 Occurrences starting 07/26/2025 until 07/26/2026 Ambulatory referral to Physical Therapy and Athletic Training Outpatient Referral Routine Generalized joint pain Fall, subsequent encounter 1 Occurrences starting 07/26/2025 until 07/26/2026 Ambulatory referral to Rheumatology Outpatient Referral Routine Acute pain of right shoulder Generalized joint pain Fall, subsequent encounter 1 Occurrences starting 07/26/2025 until 07/26/2026 documented as of this encounter Visit Diagnoses Diagnosis Acute pain of right shoulder- Primary Injury of right acromioclavicular joint, subsequent encounter Generalized joint pain Fall, subsequent encounter documented in this encounter Historical Medications * This list may reflect changes made after this encounter. SUMAtriptan (IMITREX) 50 mg tablet Take 1 tablet (50 mg total) by mouth if needed for migraine. Prescribed by Dr. Marcos 05/16/2025 methocarbamoL (ROBAXIN) 500 mg tablet Take 1 tablet (500 mg total) by mouth 4 (four) times a day. Prescribed at Urgent Care magnesium oxide 250 mg magnesium tablet Take 1 tablet (250 mg total) by mouth 1 (one) time each day. Prescribed by Dr. Marcos hydroCHLOROthiaz jennifer (HYDRODIURIL) 25 mg tablet Take 1 tablet (25 mg total) by mouth 1 (one) time each day. Prescribed by Dr. Marcos 03/16/2020 clindamycin (CLEOCIN) 300 mg capsule Take 1 capsule (300 mg total) by mouth 4 (four) times a day. Prescribed by [facility] amitriptyline (ELAVIL) 25 mg tablet Take 2 tablets (50 mg total) by mouth at bedtime. at bedtime Prescribed by Dr. Marcos 07/10/2025 added in this encounter Additional Health Concerns Assessment Noted Time PHQ-9 Depression Total Score: 0 03/14/20 4:46 PM EDT documented as of this encounter Care Teams Market Research Senior Project Manager Relationship Specialty Start Date End Date Frank Berry MD [address] [place] [address] PCP - General Internal Medicine 03/15/25 documented as of this encounter
--- OUTSIDE RECORDS SUMMARY | 2025-07-31 07:27 | XMS_ITS | Encounter Summary ---
Author Organization [facility] Address [address] [place] [address] Care Team Providers Care Gill Box Tender Name Role Phone Brian Chong APRN Primary Care Provider [phone] Diana Martinez Primary Care Provider [phone] Carl Goodman MD Unavailable Osmar Chicas MD Unavailable [phone] Encounter Details Date Type Department Care Team (Late st Contact Info) Description 10/04/2018 Scanned Document [facility] [place] at [address] [phone] Spine Surgery, Scan Social History Tobacco Use [...] on filedocumented in this encounter Care Teams Gill Box Tender Relationship Specialty Start Date End Date Brian Chong APRN [address] [place] [address] PCP - General Adult Health - PA/APNP/TRAFFIC SIGN SUPERVISOR/EMERGENCY MANAGEMENT SPECIALIST 09/29/18 01/02/22 Diana Martinez PA [address] [place] [id number] PCP - General 01/03/22 Carl Goodman MD [address] [address] Surgery, Orthopedic 01/03/22 Osmar Chicas MD [address] [facility] [address] [place] [id number] Cardiovascular Disease 01/03/22 documented as of this encounter
--- OUTSIDE RECORDS SUMMARY | 2025-07-31 07:27 | XMS_ITS | Encounter Summary ---
Author Organization [facility] Address [address] [place] [address] Care Team Providers Care Probation Manager Name Role Phone Diana Martinez Primary Care Provider [phone] Carl Goodman MD Unavailable Osmar Chicas MD Unavailable [phone] Encounter Details Date Type Department Care Team (Late st Contact Info) Description 12/18/2022 Scanned Document [facility] Department of Internal Medicine [place] [address] [place] [address] Diana Martinez PA [address] [place] [address] Social History Tobacco Use Types [...] on filedocumented in this encounter Care Teams Probation Manager Relationship Specialty Start Date End Date Diana Martinez PA [address] [place] [address] [place], [place] [phone] PCP - General 01/03/22 Carl Goodman MD [address] [address] Surgery, Orthopedic 01/03/22 Osmar Chicas MD [address] [place] [address] Cardiovascular Disease 01/03/22 documented as of this encounter
--- OUTSIDE RECORDS SUMMARY | 2025-07-31 07:27 | XMS_ITS | Data Portability ---
Author Organization [facility] [address] Address [address] [place] [address] Care Team Providers Care Game Farm Helper Name Role Phone EDI LEONARD Primary Care Provider Assessment No assessment recorded. Plan of Treatment Reminders Order Date Submit Date Provider Last Modified By Organization Details Last Modified Time Details Appointments None recorded. Lab None recorded. Referral None recorded. Procedures None recorded. Surgeries None recorded. Imaging None recorded. Medication Orders ketorolac 30 mg/mL (1 mL) injection solution 2022 023 [email or web address] Not available 13:25:22 Patient TargetsNo targets recorded. Patient Instructions Encounter Date Encounter Id Patient Instructions Last Modified By Organization Details Last Modified Time 11/30/2022 [id number] hip pain: care instructions [email or web address] Not available 11/30/2022 13:17:22 Reason for Referral None Reported. 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 Procedures Surgical History Date Name Laterality Status Provider Name and Address Organization Details Recorded Time procedure on back completed TOBY TEJADA PA - [facility] 11/30/2022 12:56:32 procedure on neck completed TOBY TEJADA PA - [facility] 11/30/2022 12:56:38 procedure on shoulder completed TOBY PUENTEICA PA - [facility] 11/30/2022 12:56:47 total replacement of hip completed TOBY TEJADA PA - [facility] 11/30/2022 12:57:08 Imaging Results None recorded. Procedure Notes None recorded. Medical Equipment None Reported. Allergies Allergen ID Allergen Name Allergen Category Reaction Reaction Severity Criticality Documentation Date Start Date Code Code System Note Provider Name and Address Organization Details Recorded Time 687779 amoxicill in medicatio n rash Not available Not available 11/30/2022 723 RxNorm TOBY TEJADA null, [place] - [facility] 3 12:50:18 760824 morphine medicatio n rash Not available Not available 11/30/2022 7052 RxNorm TOBY TEJADA null, [place] - [facility] 3 12:50:30 086699 Vibramyci n medicatio n gi bleed Not available Not available 11/30/2022 27530 5 RxNorm TOBY TEJADA null, PA - [...] (BMI) Body weight Heart rate Oxygen saturation Respiratory rate Body temperature Systolic And Diastolic Provider Name and Address Organization Details Last Updated DateTime 3 167.64 cm 34.5 kg/m2 67887.7 7 g 79 /min 97 % 18 /min 98.3 [degF] 117/78 mm[Hg] TOBY TEJADA PA - [facility] 12:58:57 Social History Question Answer Notes LastModified by Organizat ion Details LastModified Time Tobacco Smoking Status Never Smoker TOBY more [place] - [facility] 11/30/2022 12:57:35 Which Illicit Or Recreational Drugs Have You Used? Cbd Oil [email or web address] Information not available 11/30/2022 Have You Recently Traveled Abroad? No [email or web address] Information not available 11/30/2022 Sex: Unknown Functional Status Question Answer Note LastModified by Organizat ion Details LastModified Time Do you use any illicit or recreational drugs? Yes [email or web address] Information not available 11/30/2022 Do you or have you ever used any other forms of tobacco or nicotine? No [email or web address] Information not available 11/30/2022 What is your level of alcohol consumption? None [email or web address] Information not available 11/30/2022 Mental Status None recorded. Family History Nothing Reported. Medical History No medical history recorded. Gynecological HistoryNo gynecological history recorded. Obstetrics History GPAL:G 0 P 0 0 0 0 Past Encounters Encounter ID Performer Location Encounter Start Date Encounter Closed Date Diagnosis/Indication Diagnosis SNOMED-CT Code Diagnosis ICD10 Code Diagnosis IMO Codes Diagnosis Note [id number] [address] [address] [place] [address] 07/15/2016 17:08:30 07/15/2016 17:46:27 [id number] [address] [place] [address] 05/02/2018 14:17:45 05/02/2018 15:36:19 [id number] [address] [facility] [place] [address] 03/27/2019 18:05:44 03/27/2019 18:42:56 [id number] [address] [place] [address] 02/15/2019 08:37:37 02/15/2019 09:00:52 [id number] [address] [facility] [place] [address] 12/30/2017 09:27:49 12/30/2017 10:05:50 [id number] [address] [place] [address] 09/13/2019 17:37:31 09/13/2019 19:09:59 [id number] [address] [place] [address] 07/13/2016 13:41:57 07/13/2016 15:06:16 [id number] [address] [place] [address] 01/02/2018 08:18:58 01/02/2018 09:11:25 [id number] [address] [place] [address] 03/01/2018 08:30:18 03/01/2018 09:38:51 [id number] [address] [place] [address] 05/19/2018 08:20:14 05/19/2018 08:49:28 [id number] Jeremy Moses DO [address] [place] [address] 11/30/2022 12:33:28 11/30/2022 13:40:19 Pain of right hip joint 6768194331 19911 M25.551 recommend resttyleno l 1 g every 8 htrial of im toradol x 1Reviewed with patient potential adverse side effects of the medication .call treating ortho in [place] for evaluation Patient advised to follow up [...] Member ID Carty Member ID Guarantor Name 11/30/2022 [facility] [id number] Nina Bella [id number] Nina Bella 11/30/2022 1 [facility] [id number] Nina Bella [id number] Nina Bella Notes Date Note Type Note Provider Name and Address Organization Details Recorded Time 11/30/2022 text/html Thigh / HipReported by [email or web address] yo female c/o R hip pain+ h/o R hip arthritisshe is having a R hip replacement in 2 weeks usually uses a canenow having extreme pain with any weight bearing. using a walker notes worsening pain over the last weekno known traumano rashno f/c/n/v she does not take any medication regularly for her hip painShe did not call her ortho ROS as noted in the HPI Jeremy Moses, DO [address] [place], [address], [place] - [facility] 11/30/2022 14:31:47 OBGyn Episode No OBEpisode recorded.
--- OUTSIDE RECORDS SUMMARY | 2025-07-31 07:27 | XMS_ITS | Encounter Summary ---
Author Organization [facility] Address [address] [place] [address] Care Team Providers Care Galley Cook Name Role Phone Diana Martinez Primary Care Provider [phone] Carl Goodman MD Unavailable Osmar Chicas MD Unavailable [phone] Encounter Details Date Type Department Care Team (Late st Contact Info) Description 10/13/2023 Scanned Document [facility] Department of Internal Medicine [place] [address] [place] [address] Diana Martinez PA [address] [place], [place] [phone] Social History Tobacco Use Types Packs/Day Years [...] on filedocumented in this encounter Care Teams Galley Cook Relationship Specialty Start Date End Date Diana Martinez PA [address] [place] [address] PCP - General 01/03/22 Carl Goodman MD [address] [address] Surgery, Orthopedic 01/03/22 Osmar Chicas MD [address] [place] [id number] Cardiovascular Disease 01/03/22 documented as of this encounter
--- OUTSIDE RECORDS SUMMARY | 2025-07-31 07:27 | XMS_ITS | Encounter Summary ---
Author Organization [facility] Address [address] [place] [address] Care Team Providers Care Diesel Locomotive Crane Operator Name Role Phone Diana [place] Primary Care Provider [phone] Carl Goomdan MD Unavailable Osmar Chicas MD Unavailable [phone] Encounter Details Date Type Department Care Team (Late st Contact Info) Description 08/25/2023 Scanned Document [facility] Department of Internal Medicine [place] [address] [place] [address] Diana Martinez PA [address] [place], [place] [phone] Social History Tobacco Use Types Packs/Day Years [...] on filedocumented in this encounter Care Teams Diesel Locomotive Crane Operator Relationship Specialty Start Date End Date Diana Martinez PA [address] [place] [address] PCP - General 01/03/22 Carl Goodman MD [address] [address] Surgery, Orthopedic 01/03/22 Osmar Chicas MD [address] [place] [id number] Cardiovascular Disease 01/03/22 documented as of this encounter
--- OUTSIDE RECORDS SUMMARY | 2025-07-31 07:27 | XMS_ITS | Encounter Summary ---
Author Organization [facility] Address [address] [place] [address] Care Team Providers Care Package Yarns Drying Machine Operator Name Role Phone Diana [place] Primary Care Provider [phone] Carl Goodman MD Unavailable Osmar Chicas MD Unavailable [phone] Encounter Details Date Type Department Care Team (Late st Contact Info) Description 12/07/2022 Scanned Document [facility] Department of Internal Medicine [place] [address] [place] [address] Diana Martinez PA [address] [place] [address] Social History Tobacco Use Types [...] on filedocumented in this encounter Care Teams Package Yarns Drying Machine Operator Relationship Specialty Start Date End Date Diana Martinez PA [address] [place], [place] [id number] PCP - General 01/03/22 Carl Goodman MD [address] [address] Surgery, Orthopedic 01/03/22 Osmar Chicas MD [address] [place] [address] Cardiovascular Disease 01/03/22 documented as of this encounter
--- OUTSIDE RECORDS SUMMARY | 2025-07-31 07:27 | XMS_ITS | Encounter Summary ---
Author Organization [facility] Address [address] [place] [address] Care Team Providers Care Gun Perforator Loader Name Role Phone Frank Berry MD Primary Care Provider Encounter Details Date Type Department Care Team ([facility] Contact Info) Description 06/27/2025 Results Follow-Up Adult Medicine [facility] [address] [place] [address] Frank Berry MD [address] [place], [place] Social History Tobacco Use Types Packs/Day Years Used Date Smoking Tobacco: Former Cigarettes 0 Q uit: 09/07/2017 Smokeless Tobacco: Never Alcohol [...] do you feel lonely or isolated from ose around you? Never 03/14/2025 Food Risk [...] your loved ones. For example, child care director or elderly care for an older adult? [...] as of this encounter Plan of Treatment Upcoming Encounters Date Type Department Care Team (Late st Contact Info) Description 08/18/2025 11:30 AM EST Consult Orthopedic Surgery - [place] [address] [place] [address] Casimiro Colindres MD [address] [place] [address] documented as of this encounter Visit Diagnoses Not on filedocumented in this encounter Additional Health Concerns Assessment Noted Time PHQ-9 Depression Total Score: 0 03/14/20 4:46 PM EDT documented as of this encounter Care Teams Gun Perforator Loader Relationship Specialty Start Date End Date Frank Berry MD [address] [place] [address] PCP - General Internal Medicine 03/15/25 documented as of this encounter
--- OUTSIDE RECORDS SUMMARY | 2025-07-31 07:27 | XMS_ITS | Encounter Summary ---
Author Organization [facility] Address [address] [place] [address] Care Team Providers Care Spout Tender Name Role Phone Diana Martinez Primary Care Provider [phone] Carl Goodman MD Unavailable Osmar Chicas MD Unavailable [phone] Encounter Details Date Type Department Care Team (Late st Contact Info) Description 10/12/2023 Scanned Document [facility] Department of Internal Medicine [place] [address] [place] [address] Diana Martinez PA [address] [place], [place] [id number] Social History Tobacco Use Types Packs/Day Years [...] on filedocumented in this encounter Care Teams Spout Tender Relationship Specialty Start Date End Date Diana Martinez PA [address] [place] [address] PCP - General 01/03/22 Carl Goodman MD [address] [address] Surgery, Orthopedic 01/03/22 Osmar Chicas MD [address] [place] [id number] Cardiovascular Disease 01/03/22 documented as of this encounter
--- OUTSIDE RECORDS SUMMARY | 2025-07-31 07:27 | XMS_ITS | Data Portability ---
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 [email or web address] Not available 11/13/2023 15:19:18 02/04/2024 02/04/2024 Patient is doing well status post C6-7 anterior cervical diskectomy with allograft fusion. She does have some lower back pain and radiculopathy to the right groin suspicious for L3 radiculopathy. [email or web address] Not available 02/04/2024 14:02:16 03/03/2024 03/03/2024 Patient is recovering with moderate reactivation of cervical spondylosis below the level of her fusion. [email or web address] Not available 03/03/2024 12:30:46 04/14/2024 04/14/2024 Patient is recovering status post anterior cervical discectomy with allograft fusion below the level of fusion at C6-7. [email or web address] Not available 04/14/2024 13:45:59 Plan of Treatment [...] serie s No observ ation record ed. [address], [address], 10/12/2023 10:26:42 10/11/19 24 10/09/2023 XR, spine , scoli osis serie s No observ ation record ed. [address], [address], 10/12/2023 10:34:03 10/21/19 24 10/20/2023 MRI, lumba r spine , w/o contr ast No observ ation record ed. [facility] ([facility] [address] [place], [address], 10/22/2023 13:51:34 10/21/19 24 10/20/2023 MRI, cervi thu spine , w/o contr ast No observ ation record ed. [facility] [address] [place], [address], 10/22/2023 13:51:35 01/18/20 24 01/13/2024 jimmie parmar am No observ ation record ed. [facility]: Jose Rafael [address] [place], [address], 01/19/2024 09:17:55 01/22/20 24 01/18/2024 XR, cervi thu spine , 2 or 3 view No observ ation record ed. [facility]: Jose Rafael [address] [place], [address], 01/26/2024 09:52:50 02/05/20 24 02/04/2024 XR, cervi thu spine , 2 or 3 view No observ ation record ed. [facility] (Medical Records) [address] [place], [address], 02/08/2024 10:04:41 02/05/20 24 02/04/2024 XR, cervi thu spine , 2 or 3 view No observ ation record ed. [facility] (Medical Records) [address] [place], [address], 02/08/2024 10:45:46 02/05/20 24 02/04/2024 XR, lumba r spine No observ ation record ed. [email or web address] Available 2023 10:45:23 02/05/20 24 02/04/2024 XR, lumba r spine No observ ation record ed. [facility] (Medical Records) [address] [place], [address], 02/08/2024 10:04:41 03/03/20 24 03/03/2024 XR, cervi thu spine , 2 or 3 view No observ ation record ed. [email or web address] [facility] (Medical Records) [address] [place], [address], 03/04/2024 09:49:59 03/03/20 24 03/03/2024 XR, cervi htu spine , 2 or 3 view No observ ation record ed. [email or web address] Not Available 2023 10:53:50 04/16/20 24 04/14/2024 XR, cervi thu spine , 2 or 3 view No observ ation record ed. [facility] [address] [place], [address], 04/18/2024 11:22:21 04/16/20 24 04/14/2024 XR, cervi thu spine , 2 or 3 view No observ [facility]ion [facility] [address] [place], [address], 04/18/2024 12:55:18 04/18/20 24 04/14/2024 XR, cervi thu spine , 2 or 3 view No observ ation record ed. [email or web address] Not Available 2023 11:08:46 04/18/20 24 04/14/2024 XR, cervi thu spine , 2 or 3 view No observ ation record ed. [facility] [address] [place] [address], [address], 04/20/2024 10:07:20 Result Notes None recorded. Problems Name Problem SNOMED Code Status Onset Date Resolution Date Notes Provider Name and Address Organization Details Recorded Time Spinal stenosis in cervical region 22304150 Active 024 DAVION Nuno [address] [place] [address], [address] , [facility] 4 15:19:08 Problem Notes None recorded. Procedures Surgical History Date Name Laterality Status Provider Name and Address Organization Details Recorded Time 3 total replacement of right hip joint completed Nabila Garcia [facility] 4 13:25:44 2 lumbar spinal fusion completed Nabila Garcia [facility] 02/04/2024 13:25:16 1 primary fusion of cervical spine completed Nabila Garcia [facility] 02/04/2024 13:25:01 0 shoulder surgery completed Nabila Garcia [facility] 02/04/2024 13:24:41 8 total replacement of left hip joint completed Nabila Garcia [facility] 02/04/2024 13:24:14 Imaging Results None recorded. Procedure Notes None recorded. Medical Equipment None Reported. Allergies Allergen ID Allergen Name Allergen Category Reaction Reaction Severity Criticality Documentation Date Start Date Code Code System Note Provider Name and Address Organization Details Recorded Time 3189528 amoxicill in medicatio n rash Not available Not available 02/04/2024 723 RxNorm Nabila more [facility] 4 13:23:28 9111530 morphine medicatio n rash Not available Not available 02/04/2024 7052 [facility] 13:23[facility]39 5299916 Vibramyci n medicatio n gi bleed Not available Not available 02/04/202484003 5 [facility] 13:23:50 Medications Name Sig Start [...] Updated DateTime 10/09/2023 167.64 cm 35.5 kg/m2 31327.32 g Nabila Garcia [facility] 10/09/2023 14:18:33 Date Recorded Body height Body mass index (BMI) Body weight Provider Name and Address Organization Details Last Updated DateTime 02/04/2024 167.64 cm 35.5 kg/m2 62356.32 g Nabila Garcia [facility] 02/04/2024 13:14:10 Social History None recorded. Functional Status None recorded. Mental Status None recorded. Family History Nothing Reported. Medical History Condition Response SEIZURE DISORDER Y ARTHRITIS Y ANXIETY DISORDER Y STROKE Y depression Y HYPERTENSION Y Gynecological HistoryNo gynecological history recorded. Obstetrics History GPAL:G 0 P 0 0 0 0 Past Encounters Encounter ID Performer Location Encounter Start Date Encounter Closed Date Diagnosis/Indication Diagnosis SNOMED-CT Code Diagnosis ICD10 Code Diagnosis IMO Codes Diagnosis Note [id number] Sonido Maldonado MD [facility] [address] [address] 10/09/2023 12:17:04 10/09/2023 15:45:27 Spinal stenosis in cervical region 27806809 M48.02 We discussed the potential benefit of a revision fusion at C6-7. [id number] Sonido Maldonado MD [facility] [address] [address] 11/13/2023 13:54:32 11/13/2023 15:02:23 Spinal stenosis in cervical region 05612174 M48.02 We discussed the potential benefit of [...] to the assessment and plan for details. [id number] DAVION Nuno [facility] [address] [address] 02/04/2024 12:13:22 02/04/2024 14:36:09 Spinal stenosis in cervical region 71894054 M48.02 She will resume normal activity. I recommend a course of physical therapy. She will transition from a hard collar to a soft collar today to wear as needed. All questions were answered in a mike candid manner. Follow up in 3-4 weeks with repeat cervical imaging Lumbar spondylosis 510[address] 0009 M47.896 I recommend she continue with conservati ve management . If pain worsens she could benefit from injections . All questions were answered. [id number] DAVION Nuno [facility] [address] [address] 03/03/2024 11:48:32 03/03/2024 12:06:03 Spinal stenosis in cervical region 25807514 M48.02 I recommend gentle increase in range of motion and exercise. I discussed the pathophysi ology and natural history in great detail. She will resume normal activity as tolerated. Follow-up as needed or interval basis. [id number] Sonido Maldonado MD [facility] [address] [address] 04/14/2024 12:10:58 04/14/2024 14:21:20 Spinal stenosis in cervical region 49485250 M48.02 She will continue to increase activity as tolerated. I recommend gentle range of motion, stretching and exercise. No restrictio ns from our perspectiv e. She will follow-up on an interval basis and or as needed Health Concerns Section Related Observation LastModified by Organization Qi acosta LastModified Time None Recorded Concern Status LastModified by Organization Details LastModified Time None Recorded Advance Directives Directive None Recorded Payers Insurance Date Sequence Insurance Name Policy Number Policy Carty Covered Member ID Carty Member ID Guarantor Name 01/21/2024 1 [facility] (MEDICARE REPLACEMENT/A DVANTAGE - HMO) [id number] Nina Bella [id number] Nina Bella 06/14/2024 1 [facility] (MEDICARE REPLACEMENT/A DVANTAGE - PPO) [id number] Nina Bella [id number] Nina Bella 06/15/2024 2 [place] [facility] Nina Bella [id number] Nina Bella Notes Date Note Type Note Provider Name and Address Organization Details Recorded Time 10/09/2023 text/html I had the pleasure of seeing Ms. Bella in the office [...] driving for 18 months. Sonido Maldonado MD [address] [place] [address], [address], [facility] 10/09/2023 22:10:38 11/13/2023 text/html I had the pleasure of seeing Mr. Bella in the office [...] it helps her sleep. Sonido Maldonado MD [address] [place] [address], [address], [facility] 11/13/2023 23:09:37 02/04/2024 text/html Ms. Bella [...] pain is improved with rest. DAVION Nuno [address] [place], [address], [facility] 02/04/2024 14:26:17 03/03/2024 text/html Ms. Bella [...] She denies fever or chills. DAVION Nuno [address] [place] [address], [address], [facility] 03/03/2024 12:31:51 04/14/2024 text/html Ms. Bella returns [...] is doing well. Sonido Maldonado MD [address] [place], [address], [facility] 04/14/2024 21:27:20 OBGyn Episode No OBEpisode recorded.
--- OUTSIDE RECORDS SUMMARY | 2025-07-31 07:27 | XMS_ITS | Encounter Summary ---
Author Organization [facility] Address [address] [place] [address] Care Team Providers Care Sas Sql Developer Name Role Phone Diana Martinez Primary Care Provider [phone]- [phone] Carl Goodman MD Unavailable Osmar Chicas MD Unavailable [phone] Encounter Details Date Type Department Care Team (Late st Contact Info) Description 11/12/2022 Scanned Document [facility] Department of Internal Medicine [place] [address] [place] [address] Diana Martinez PA [address] [place] [address] Social History Tobacco Use [...] on filedocumented in this encounter Care Teams Sas Sql Developer Relationship Specialty Start Date End Date Diana Martinez PA [address] [place], [place] [id number] PCP - General 01/03/22 Carl Goodman MD [address] [address] Surgery, Orthopedic 01/03/22 Osmar Chicas MD [address] [place] [address] Cardiovascular Disease 01/03/22 documented as of this encounter
--- OUTSIDE RECORDS SUMMARY | 2025-07-31 07:27 | XMS_ITS | Encounter Summary ---
Author Organization [facility] Address [address] [place] [address] Care Team Providers Care System Architect Name Role Phone Diana Martinez Primary Care Provider [phone] Carl Goodman MD Unavailable Osmar Chicas MD Unavailable [phone] Encounter Details Date Type Department Care Team (Late st Contact Info) Description 10/23/2023 Scanned Document [facility] Department of Internal Medicine [place] [address] [place] [address] Diana Martinez PA [address] [place], [place] [address] Social History Tobacco Use Types Packs/Day Years [...] on filedocumented in this encounter Care Teams System Architect Relationship Specialty Start Date End Date Diana Martinez PA [address] [place] [address] PCP - General 01/03/22 Carl Goodman MD [address] [address] Surgery, Orthopedic 01/03/22 Osmar Chicas MD [address] [place] [id number] Cardiovascular Disease 01/03/22 documented as of this encounter
--- OUTSIDE RECORDS SUMMARY | 2025-07-31 07:27 | XMS_ITS | Encounter Summary ---
Author Organization [facility] Address [address] [place] [address] Care Team Providers Care Internal Review And Audit Compliance Name Role Phone Diana Martinez Primary Care Provider [phone] Carl Goodman MD Unavailable Osmar Chicas MD Unavailable [phone] Encounter Details Date Type Department Care Team (Late st Contact Info) Description 12/15/2022 Scanned Document [facility] Department of Internal Medicine [place] [address] [place] [address] Diana Martinez PA [address] [place] [address] Social History Tobacco Use Types [...] on filedocumented in this encounter Care Teams Internal Review And Audit Compliance Relationship Specialty Start Date End Date Diana Martinez PA [address] [place] [address] [place], [place] [id number] PCP - General 01/03/22 Carl Goodman MD [address] [address] Surgery, Orthopedic 01/03/22 Osmar Chicas MD [address] [place] [address] Cardiovascular Disease 01/03/22 documented as of this encounter
--- OUTSIDE RECORDS SUMMARY | 2025-07-31 07:27 | XMS_ITS | Clinical Summary ---
Author Organization [facility] Address [address] [place] [address] Care Team Providers Care Conference And Event Organiser Name Role Phone Diana Martinez Primary Care Provider [phone] Allergies Active Allergy Reactions Criticality Noted Date [...] this topic Medical Devices Implanted Type Area Dental Practitioner Device Identifier Shelf Expiration Date Model / Serial / Lot Surgiflo Hemostatic Matrix Jn-Ethi 2991-442024 - [id number] Implanted:Qty : 2 on 08/09/2021 by Andrea Polanco DO at [facility] Hemostatic Agent Anterior: Spine Cervical [facility] [employer] 11/04/2022 2991 / / [id number] Size 5 Standard Tapered Stem Cementless Implanted:Qty : 1 on 12/29/2022 by Clifton Esteban MD at [facility] Total Joint Right: Hip [id number] 10/01/2027 / / [id number] +4 Femoral Head Implanted:Qty : 1 on 12/29/2022 by Clifton Esteban MD at [facility] Total Joint Right: Hip [id number] 07/04/2026 / / [id number] Description:Renata 36mm +4mm Acetabular Liner 36mm X 52\54 10 Hooded E-Max - 688795 - [id number] Implanted:Qty : 1 on 04/07/2018 by Bairon Adame MD at [facility] Left: Hip [employer] 09/19/2022 1523-365 -254 / / [id number] Cancellous Bone Screw 6.5mm X 20mm - 102650 - [id number] Implanted:Qty : 1 on 04/07/2018 by Bairon Adame MD at [facility] Left: Hip [employer] 10/26/2022 1501-865 -020 / / [id number] Acetabular Bone Screw 6.5mm X 30mm - 680429 - [id number] Implanted:Qty : 1 on 04/07/2018 by Baiorn Adame MD at [facility] Left: Hip [employer] 08/22/2021 1501-865 -030 / / [id number] Stem Tapered Femoral Extended-Late ral Offset 6.75mm - 760799 - [id number] Implanted:Qty : 1 on 04/07/2018 by Bairon Adame MD at [facility] Left: Hip [employer] 07/21/2022 1401-922 -067 / / [id number] [employer] Delta Ceramic Femoral Head Sz 36mm -4 - [id number] - [id number] Implanted:Qty : 1 on 04/07/2018 by Bairon Adame MD at [facility] Left: Hip [employer] 03/03/2022 1451-036 -004 / / [id number] Plate Bailey 57mm 3 Level Bone Stry-K2m Tu38-15q43z-4 34495 - [id number] Implanted:Qty : 1 on 08/09/2021 by Andrea Polanco DO at [facility] Anterior: Spine Cervical [employer] KL29-65L 57V / / Screw Bailey Self-Start 4x16mm Stry-K2m 8801-67108en- 228159 - [id number] Implanted:Qty : 7 on 08/09/2021 by Andrea Polanco DO at [facility] Anterior: Spine Cervical [employer] 8801-040 16DA / / Screw Bailey 16mm 4.5mm Self St Stry-Howm 8801-70094mj- 615514 - [id number] Implanted:Qty : 1 on 08/09/2021 by Andrea Polanco DO at [facility] Anterior: Spine Cervical [facility] 8801-045 16DA / / Spacer Vikos 14.5x11.5x8mm 7d Stry-Spin 9306-05498z-0 27814 - [id number] Implanted:Qty : 1 on 08/09/2021 by Andrea Polanco DO at [facility] Anterior: Spine Cervical [employer] 06/12/2025 2504-214 08L / [id number] / Spacer Vikos 14.5x11.5x7mm 7d Stry-Spin 5163-01980t-4 80918 - [id number] Implanted:Qty : 1 on 08/09/2021 by Andrea Polanco DO at [facility] Anterior: Spine Cervical [employer] 10/24/2025 2504-214 07L / [id number] / Spacer Vikos 14.5x11.5x7mm 7d Stry-Spin 9518-76040l-7 [address]3960 - [id number] Implanted:Qty : 1 on 08/09/2021 by Andrea Polanco DO at [facility] Anterior: Spine Cervical [employer] 08/02/2025 2504-214 07L / [id number] / Hip Cup Marie Tpr 52mm Sz3 Crng-Manu 321.03.352-63 6960 - [id number] Implanted:Qty : 1 on 12/29/2022 by Clifton Esteban MD at [facility] Right: Hip [employer] [id number] 10/13/2027 321.03.3 52 / / [id number] Screw Marie 6.5x25mm Crng-Manu 321.025-04752 7 - [id number] Implanted:Qty : 1 on 12/29/2022 by Clifton Esteban MD at [facility] Right: Hip [employer] [id number] 09/02/2027 321.025 / / [id number] Screw Marie 6.5x20mm Crng-Manu 321.020-12338 6 - [id number] Implanted:Qty : 1 on 12/29/2022 by Clifton Esteban MD at [facility] Right: Hip [employer] [id number] 10/02/2027 321.020 / / [id number] Marie Liner Ecima Neutral Offset Implanted:Qty : 1 on 12/29/2022 by Clifton Esteban MD at [facility] Right: Hip [employer] 10/29/2027 322.03.6 36 / / [id number] Explanted Type Area Dental Practitioner Device Identifier Shelf Expiration Date Model / Serial / Lot Acetabular Shell Cluster Hole Sz 54mm - 745164 - [id number] Implanted:Qty: 1 on 04/07/2018 by Bairon Adame MD at [facility] Explanted:Qty: 1 on 02/11/2023 at [facility] Left: Hip RENOVI 12/13/2021 1501-121 -05 3553-2 Advance Directives For more information, please contact: [phone] Documents on File Type Date Recorded Patient Hedis Specialist Expl anation Advance Directive and Living Will [...] the following way: discussion with healthcare sales donor recruitment representative . Full Code 08/09/2021 12:40 PM 08/12/2021 9:22 PM This code status was ascertained in the following way: discussion with patient . Care Teams Conference And Event Organiser Relationship Specialty Start Date End Date Diana Martinez PA [address] [place] [address] PCP - General Physician Tool Crib Supervisor 12/29/22
--- OUTSIDE RECORDS SUMMARY | 2025-07-31 07:27 | XMS_ITS | Clinical Summary ---
Author Organization [address] Address [address] [place] [address] [place] [phone] Phone Care Team Providers Care Track Helper Name Role Phone Frank Berry MD Primary Care Provider Allergies Active Allergy Reactions Criticality Noted Date Comments Amoxicillin Hives,Rash Medium 03/18/2018 rash Latex Itching Low 02/05/2022 C/O: itching C/O: itching Morphine Hives,Rash Low 10/12/2010 Other reaction(s): rash Doxycycline Calcium 01/28/2024 Medications aspirin 81 mg EC tablet Take 1 tablet (81 mg total) by mouth 1 (one) time each day. OTC Active clonazePAM (KlonoPIN) 0.5 mg tablet Take 1 tablet (0.5 mg total) by mouth 2 times daily as needed. Take 1/2 tablet Prescribed at [facility] Active DULoxetine (CYMBALTA) [address] capsule Take 1 capsule (30 mg total) by mouth 1 (one) time each day. Prescribed at [facility] Active DULoxetine (CYMBALTA) [address] capsule Take 1 capsule (60 mg total) by mouth 1 (one) time each day. Prescribed at [facility] Active risperiDONE (RisperDAL) 0.25 mg tablet Take 1 tablet (0.25 mg total) by mouth 1 (one) time each day. Prescribed at [facility] Active lamoTRIgine (LaMICtal) 200 mg tablet Take 1 tablet (200 mg total) by mouth 2 (two) times a day. Prescribed at [facility] Active zolpidem (AMBIEN) 10 mg tablet Take 1 tablet (10 mg total) by mouth 1 (one) time each day. Prescribed at [facility] 0 Active rosuvastatin (CRESTOR) 10 mg tablet TAKE 1 TABLET BY MOUTH 1 TIME EACH DAY. 90 tablet 1 5 Active valsartan (DIOVAN) 40 mg tablet TAKE 1 TABLET BY MOUTH EVERY DAY 90 tablet 1 5 Active amitriptyline (ELAVIL) 25 mg tablet Take 2 tablets (50 mg total) by mouth at bedtime. at bedtime Prescribed by Dr. Marcos 5 Active clindamycin (CLEOCIN) 300 mg capsule Take 1 capsule (300 mg total) by mouth 4 (four) times a day. Prescribed by [facility] Active hydroCHLOROthia zide (HYDRODIURIL) 25 mg tablet Take 1 tablet (25 mg total) by mouth 1 (one) time each day. Prescribed by Dr. Marcos 0 Active magnesium oxide 250 mg magnesium tablet Take 1 tablet (250 mg total) by mouth 1 (one) time each day. Prescribed by Dr. Marcos Active methocarbamoL (ROBAXIN) 500 mg tablet Take 1 tablet (500 mg total) by mouth 4 (four) times a day. Prescribed at Urgent Care Active SUMAtriptan (IMITREX) 50 mg tablet Take 1 tablet (50 mg total) by mouth if needed for migraine. Prescribed by Dr. Marcos 5 Active Active Problems Problem Noted Date Diagnosed [...] Encounters Date Type Department Care Team Description 07/26/2025 2:30 PM EST Office Visit Adult Medicine [address] [phone] Nic Macdonald, FRUIT THINNER MACHINE OPERATOR Acute pain of right shoulder (Primary Dx); Injury of right acromioclavicular joint, subsequent encounter; Generalized joint pain; Fall, subsequent encounter 07/25/2025 Telephone Adult Medicine [address] [phone] Poonam Herrera MA 07/24/2025 Telephone Adult Medicine [address] [phone] Frank Berry MD 06/27/2025 Results Follow-Up Adult Medicine [address] [phone] Frank Berry MD 06/23/2025 1:35 PM EDT - 06/23/2025 11:59 PM EDT Hospital [facility] [address] [phone] Encounter for screening mammogram for breast cancer Discharge Disposition: Home or Self Care 06/09/2025 Telephone Adult Medicine [address] [phone] Frank Berry MD from Last 3 Months Immunizations Immunization Administration Dates Next Due Influenza trivalent, MDCK, [...] Vitamin D deficiency 12/24/2023 Epilepsy (CMS/HCC V24, CMS/HCC V28) Stroke (CMS/HCC V24, CMS/HCC V28) Family [...] your loved ones. For example, child care centre director or elderly care for an older [...] SAB Ectopic Multiple Livin g Live Births 0 0 0 2 Last Filed Vital Signs Vital Sign Reading Time Taken Comments Blood Pressure 108/78 07/26/2025 2:37 PM EST Pulse 91 07/26/2025 2:37 PM EST Temperature 36.3 C (97.3 F) 07/26/2025 2:37 PM EST Respiratory Rate 16 08/01/2024 1:03 PM EST Oxygen Saturation 99% 07/26/2025 2:37 PM EST Inhaled Oxygen Concentration - - Weight 108 kg (237 lb) 07/26/2025 2:37 PM EST Height 167.6 cm (5' 6 ) 07/26/2025 2:37 PM EST Body Mass Index 38.25 07/26/2025 2:37 PM EST Plan of Treatment Upcoming Encounters Date Type Department Care Team (Late st Contact Info) Description 08/18/2025 11:30 AM EST Consult Orthopedic Surgery - [place] [address] [facility] [address] [place] [phone] Casimiro Colindres MD [address] [place] [address] Health Maintenance Due Date Last Done Comments RSV Immunization Adult Patients (1 - Risk 50-74 years 1-dose series) 2015 COVID-19 Vaccine ( season) 2025 07/08/2021, 10/19/2020, 09/28/2020 Influenza Vaccine (#1) 2025 , 05/27/2023, 07/08/2021, Additional history exists Cervical Cancer Screening: Pap Smear 09/07/2025 Postponed from 1986 (Patient Refused) Social Influencers of Health Screening 03/14/2026 03/14/2025 Medicare Annual Wellness Visit 03/15/2026 03/15/2025 Hypertension/CHF/CAD Annual BMP Blood Test 03/16/2026 03/16/2025, 09/15/2024, 08/12/2024, Additional history exists Colorectal Cancer Screening: Colonoscopy 03/18/2026 03/18/2021, 11/03/1999 Breast Cancer Screening 06/23/2027 06/23/20, 03/14/2024, 03/14/2024 DTaP,Tdap,and Td Vaccines (3 - Td or [...] this topic Medical Devices Implanted Type Area Wrapping Checker Device Identifier Shelf Expiration Date Model / Serial / Lot Surgiflo Hemostatic Matrix Counts Include 234 [facility] [id number] Implanted:Qty : 2 on 08/09/2021 by Andrea Polanco DO Implants N/A: Spine Cervical [facility] [employer] 11/04/2022 [id number] / / [id number] Size 5 Standard Tapered Stem Cementless Implanted:Qty : 1 on 12/29/2022 by Clifton Esteban MD Joints Right: Hip [id number] 10/01/2027 / / [id number] +4 Femoral Head Implanted:Qty : 1 on 12/29/2022 by Clifton Esteban MD Joints Right: Hip [id number] 07/04/2026 / / [id number] Description:Renata 36mm +4mm Spacer Vikos 14.5x11.5x8mm 7d Stry-Spin [id number]-[id number] 07922 - [id number] Implanted:Qty : 1 on 08/09/2021 by Andrea Polanco DO N/A: Spine Cervical [employer] 06/12/2025 2504-214 08L / [id number] / Spacer Vikos 14.5x11.5x7mm 7d Stry-Spin [id number] 72139 - [id number] Implanted:Qty : 1 on 08/09/2021 by Andrea Polanco DO N/A: Spine Cervical [employer] 10/24/2025 2504-214 07L / [id number] / Spacer Vikos 14.5x11.5x7mm 7d Stry-Spin [id number] 59490 - [id number] Implanted:Qty : 1 on 08/09/2021 by Andrea Polanco DO N/A: Spine Cervical [employer] 08/02/2025 2504-214 07L / [id number] / Plate Dickinson 57mm 3 Level Bone Stry-K2m [id number] Implanted:Qty : 1 on 08/09/2021 by Andrea Polanco, DO N/A: Spine Cervical [employer] [id number] 57V / / Screw Dickinson Self-Start 4x16mm Stry-K2m [id number]- [id number] Implanted:Qty : 7 on 08/09/2021 by Andera Polanco, DO N/A: Spine Cervical [employer] 8801-040 16DA / / Screw Dickinson 16mm 4.5mm Self St Stry-Howm [id number] Implanted:Qty : 1 on 08/09/2021 by Andrea Polanco, DO N/A: Spine Cervical [employer] 8801-045 16DA / / Screw Marie 6.5x20mm Crng-Manu [id number] 6 Implanted:Qty : 1 on 12/29/2022 by Clifton Esteban MD Right: Hip [employer] [id number] 10/02/2027 321.02 0 / / [id number] Marie Liner Ecima Neutral Offset Implanted:Qty : 1 on 12/29/2022 by Clifton Esteban MD Right: Hip [employer] 10/29/2027 322.03.6 36 / / [id number] Hip Cup Marie Tpr 52mm Sz3 Crng-Manu [id number] 6960 Implanted:Qty : 1 on 12/29/2022 by Clifton Esteban MD Right: Hip [employer] [id number] 10/13/2027 321.03 .3 52 / / [id number] Screw Marie 6.5x25mm Crng-Manu 321.025-37231 7 Implanted:Qty : 1 on 12/29/2022 by Clifton Esteban MD Right: Hip [employer] [id number] 09/02/2027 321.02 5 / / [id number] Procedures Procedure Name Priority Date/Time Associated Diagnosis Comments MG MAMMO DIGITAL SCREENING W BRAYDON BILAT Routine 06/23/2025 2:06 PM EDT Encounter for screening mammogram for breast cancer COMPREHENSIVE METABOLIC PANEL Routine 03/16/2025 8:24 AM EDT Annual wellness visit Routine general medical examination at a health care facility LIPID PANEL WITH REFLEX TO DIRECT LDL Routine 03/16/2025 8:24 AM EDT Annual wellness visit Routine general medical examination at a health care facility HIV 1, 2 ANTIBODY, P24 ANTIGEN WITH REFLEX TO DIFFERENTIATION Routine 08/12/2024 7:54 AM EST Encounter for screening for HIV HEPATITIS C SCREENING Routine 12/24/2023 COLONOSCOPY Routine 03/18/2021 from Last 3 Months or Most Recently Relevant to Health Maintenance Results * MG Mammo Digital Screening w Braydon bilat (06/23/2025 2:06 PM EDT) Anatomical Region Laterality Modality Breast Bilateral Mammography 06/26/2025 1:24 PM EDT Impressions 06/26/2025 2:07 PM EDT Benign. BI-RADS CATEGORY: 1 - NEGATIVE RECOMMENDATION: Screening bilateral mammogram is recommended in 1 year. Mammo Location: [facility], [address] [place] [address], [address], . -------- FINAL REPORT -------- Dictated By: Juan M Wheatley Dictated Date: 06/26/2025 13:24 ET Assigned Physician: Juan M Wheatley Reviewed and Electronically Signed By: Juan M Wheatley Signed Date: 06/26/2025 14:07 ET Workstation ID: [id number] Transcribed By: Self Edit Transcribed Date: 06/26/2025 13:25 ET Narrative 06/26/2025 2:07 PM EDT CLINICAL: 60 years old, Female, routine annual exam. COMPARISON: 03/14/2024 and 06/24/2023. TECHNIQUE: Bilateral MLO and CC views were obtained digitally with 3-D mammogram (digital breast tomosynthesis). Computer-aided detection was utilized in evaluation of this exam (CAD). FINDINGS: No suspicious mass or architectural distortion. No suspicious calcification. There has been no significant change from prior exam(s). BREAST DENSITY: B - There are scattered areas of fibroglandular density. Procedure Note Juan M Wheatley MD - 06/26/2025 CLINICAL: 60 years old, Female, routine annual exam. COMPARISON: 03/14/2024 and 06/24/2023. TECHNIQUE: Bilateral MLO and CC views were obtained digitally with 3-Dmammogram (digital breast tomosynthesis). Computer-aided detection wasutilized in evaluation of this exam (CAD). FINDINGS: No suspicious mass or architectural distortion. No suspiciouscalcification. There has been no significant change from prior exam(s). BREAST DENSITY: B - There are scattered areas of fibroglandular density. IMPRESSION: Benign. BI-RADS CATEGORY: 1 - NEGATIVE RECOMMENDATION: Screening bilateral mammogram is recommended in 1 year. Mammo Location: [facility], [address] [place] [address], [address], . -------- FINAL REPORT -------- Dictated By: Juan M Wheatley Dictated Date: 06/26/2025 13:24 ET Assigned Physician: Juan M Wheatley Reviewed and Electronically Signed By: Juan M Wheatley Signed Date: 06/26/2025 14:07 ET Workstation ID: [id number] Transcribed By: Self Edit Transcribed Date: 06/26/2025 13:25 ET us Self Referral Sppl IMG BI PROCEDURES Final Resul t * Lipid panel with reflex to direct LDL (03/16/2025 8:24 AM EDT) Cholesterol 194 0 - 200 mg/dL LAB CHEMISTRY METHOD 03/16/2025 12:05 PM EDT [facility] Triglycerides 114 0 - 150 mg/dL LAB CHEMISTRY METHOD 03/16/2025 12:05 PM EDT [facility] HDL 98 >=40 mg/dL LAB CHEMISTRY METHOD 03/16/2025 12:05 PM EDT [facility] LDL Calculated 73 0 - 100 mg/dL LAB CHEMISTRY METHOD 03/16/2025 12:05 PM EDT [facility] VLDL Cholesterol Jai 22.8 mg/dL LAB CHEMISTRY METHOD 03/16/2025 12:05 PM [facility] Non HDL Chol. (LDL+VLDL) 96 <145 mg/dL LAB CHEMISTRY METHOD 03/16/2025 12:05 PM [facility] Chol/HDL Ratio 2.0 0.0 - 4.4 LAB CHEMISTRY METHOD 03/16/2025 12:05 PM [facility] Blood Venous blood specimen / Unknown Venipuncture / Unknown 03/16/2025 8:24 AM EDT 03/16/2025 8:24 AM EDT us Frank Berry MD LAB BLOOD ORDERABLES Final Result [facility] [address] [place] [address], [place] [phone] * (ABNORMAL) Comprehensive metabolic panel (03/16/2025 8:24 AM EDT) Sodium 141 133 - 145 mmol/L LAB CHEMISTRY METHOD 03/16/2025 12:03 PM [facility] Potassium 3.9 3.5 - 5.5 mmol/L LAB CHEMISTRY METHOD 03/16/2025 12:03 PM [facility] Chloride 106 96 - 110 mmol/L LAB CHEMISTRY METHOD 03/16/2025 12:03 PM [facility] CO2 30 21 - 32 mmol/L LAB CHEMISTRY METHOD 03/16/2025 12:03 PM [facility] Anion Gap 5 3 - 11 LAB CHEMISTRY METHOD 03/16/2025 12:03 PM [facility] Glucose 95 70 - 100 mg/dL LAB CHEMISTRY METHOD 03/16/2025 12:03 PM [facility] BUN 12 5 - 25 mg/dL LAB CHEMISTRY METHOD 03/16/2025 12:03 PM [facility] Creatinine 0.90 0.50 - 1.10 mg/dL LAB CHEMISTRY METHOD 03/16/2025 12:03 PM [facility] eGFR 74 >=60 mL/min/1. 73m2 LAB CHEMISTRY METHOD 03/16/2025 12:03 PM [facility] Comment:Calculation based on the Chronic Kidney Disease Epidemiology Collaboration (CKD-EPI) equation refit without adjustment for race. BUN/Creatinine Ratio 13.3 LAB CHEMISTRY METHOD 03/16/2025 12:03 PM [facility] Calcium 9.5 8.5 - 10.5 mg/dL LAB CHEMISTRY METHOD 03/16/2025 12:03 PM [facility] AST (SGOT) 18 10 - 42 unit/L LAB CHEMISTRY METHOD 03/16/2025 12:03 PM [facility] ALT (SGPT) 25 10 - 60 unit/L LAB CHEMISTRY METHOD 03/16/2025 12:03 PM [facility] Alkaline Phosphatase 140(H) 42 - 121 unit/L LAB CHEMISTRY METHOD 03/16/2025 12:03 PM [facility] Total Protein 7.2 6.0 - 8.0 g/dL LAB CHEMISTRY METHOD 03/16/2025 12:03 PM [facility] Albumin 4.2 3.2 - 5.0 g/dL LAB CHEMISTRY METHOD 03/16/2025 12:03 PM [facility] Total Bilirubin 0.4 0.0 - 1.4 mg/dL LAB CHEMISTRY METHOD 03/16/2025 12:03 PM [facility] Blood Venous blood specimen / Unknown Venipuncture / Unknown 03/16/2025 8:24 AM EDT 03/16/2025 8:24 AM EDT us Frank Berry MD LAB BLOOD ORDERABLES Final Result Performing Organization Address [facility]/ZIP Co de Phone Number [facility] [address] [place] [address], [place] [phone] * HIV 1,2 antibody, p24 antigen with reflex to differentiation (08/12/2024 7:54 AM EST) [facility] HIV Combo AB/AG Negative Negative LAB CHEMISTRY METHOD 08/12/2024 10:52 AM EST [facility] Blood Venous blood specimen / Unknown Venipuncture / Unknown 08/12/2024 7:54 AM EST 08/12/2024 7:54 AM EST [facility] - 08/12/2024 10:52 AM EST [...] ORDERABLES F inal Result Performing Organization Address [facility]/ZIP Co de Phone Number [facility] [address] [place] [address], [place] [phone] * Hepatitis C Screening (12/24/2023) Pathologist [facility] Hepatitis C Screening abstracted Historical Sher [employer] Final Result * Colonoscopy (03/18/2021) Pathologist [facility] Colonoscopy no interpretation , abstracted Anatomical Region Laterality Modality Other Historical Sher [employer] Final Result from Last 3 Months or Most Recently Relevant to Health Maintenance Insurance MEDICAID - [place] [employer] MEDICARE Care Teams Track Helper Relationship Specialty Start Date End Date Frank Berry MD [address] [place] [address] PCP - General Internal Medicine 03/15/25
--- OUTSIDE RECORDS SUMMARY | 2025-07-31 07:27 | XMS_ITS | Encounter Summary ---
Author Organization [facility] Address [address] [place] [address] Care Team Providers Care Vascular Ultrasound Technologist Name Role Phone Diana Martinez Primary Care Provider [phone] Carl Goodman MD Unavailable Osmar Chicas MD Unavailable [phone] Encounter Details Date Type Department Care Team (Late st Contact Info) Description 09/10/2023 Scanned Document [facility] Physicians Department of Internal Medicine [place] [address] [place] [address] Diana Martinez PA [address] [place], [place] [id number] Social History Tobacco Use Types Packs/Day Years [...] on filedocumented in this encounter Care Teams Vascular Ultrasound Technologist Relationship Specialty Start Date End Date Diana Martinez PA [address] [place] [address] PCP - General 01/03/22 Carl Goodman MD [address] [address] Surgery, Orthopedic 01/03/22 Osmar Chicas MD [address] [place] [id number] Cardiovascular Disease 01/03/22 documented as of this encounter
--- OUTSIDE RECORDS SUMMARY | 2025-07-31 07:27 | XMS_ITS | Encounter Summary ---
Author Organization [facility] Address [address] [place] [address] Care Team Providers Care Automation/Controls Manager Name Role Phone Diana Martinez Primary Care Provider [phone] Carl Goodman MD Unavailable Osmar Chicas MD Unavailable [phone] Encounter Details Date Type Department Care Team (Late st Contact Info) Description 12/01/2022 Scanned Document [facility] Department of Internal Medicine [place] [address] [place] [address] Diana Martinez PA [address] [place] [address] Social History Tobacco Use Types [...] on filedocumented in this encounter Care Teams Automation/Controls Manager Relationship Specialty Start Date End Date Diana Martinez PA [address] [place], [place] [id number] PCP - General 01/03/22 Carl Goodman MD [address] [address] Surgery, Orthopedic 01/03/22 Osmar Chicas MD [address] [place] [address] Cardiovascular Disease 01/03/22 documented as of this encounter
--- OUTSIDE RECORDS SUMMARY | 2025-07-31 07:27 | XMS_ITS | Clinical Summary ---
Author Organization [facility] Address [address] [place] [address] Care Team Providers Care Remedial Teacher Name Role Phone Diana Martinez Primary Care Provider [phone] Carl Goodman MD Unavailable Osmar Chicas MD Unavailable [phone] Allergies Active Allergy Reactions Criticality Noted Date [...] this topic Medical Devices Implanted Type Area Railway Traction Line Worker Device Identifier Shelf Expiration Date Model / Serial / Lot 193.334 Spacer Spinal [id number] Rise-L 10d Nonst - [id number] Implanted:Qty: 2 on 02/05/2022 by Carl Goodman MD at [facility] Cage N/A: Spine Lumbar [employer] 193.334 / / 6.5x55 Voyager Mas Screw Implanted:Qty: 2 on 02/05/2022 by Carl Goodman MD at [facility] Screw N/A: Spine Lumbar [employer] [place] [id number] / / [id number] Screw Set 5.5/6mm Cd Hzn Soleral Vygr Nonst Lf - [id number] Implanted:Qty: 6 on 02/05/2022 by Carl Goodman MD at [facility] Screw N/A: Spine Lumbar [employer] [place] [id number] / / [id number] Screw Bone Spine Cd Hzn Vygr 50mm 6.5mm Ma Nonst 5.5mm Nestor - [id number] Implanted:Qty: 2 on 02/05/2022 by Carl Goodman MD at [facility] Spine N/A: Spine Lumbar [employer] [place] [id number] / / [id number] Screw Bone Spine Cd Hzn Vygr 45mm 6.5mm Ma Nonst 5.5mm Nestor - [id number] Implanted:Qty: 2 on 02/05/2022 by Carl Goodman MD at [facility] Spine N/A: Spine Lumbar [employer] [place] [id number] / / [id number] Tab Fixation 5.5/6mm Spine Automobile Radio Repairer Sleeve - [id number] Implanted:Qty: 12 on 02/05/2022 by Carl Goodman MD at [facility] Spine N/A: Spine Lumbar [employer] [place] [id number] / / [id number] Graft Bone 23mm 14mm Infs Sm Spine Rhbmp-2 Bvn Collagen - [id number] Implanted:Qty: 1 on 02/05/2022 by Carl Goodman MD at [facility] Tissue N/A: Spine Lumbar [employer] [place] 06/06/2024 [id number] / / [id number] Graft Bone Kore Fiber Marcial Bone Fiber 5cc Algrf Mld High - [id number] Implanted:Qty: 1 on 02/05/2022 by Carl Goodman MD at [facility] Tissue N/A: Spine Lumbar [employer] 02/21/2024 [id number] / [id number] / 5.5/6.0 Sv Cap Implanted:Qty: 6 on 02/05/2022 by Carl Goodman MD at [facility] N/A: Spine Lumbar [employer] [place] [id number] / / 5.5 Ccm Prec Nestor 80mm Implanted:Qty: 2 on 02/05/2022 by Carl Goodman MD at [facility] N/A: Spine Lumbar [employer] [place] [id number] / / Explanted Type Area Railway Traction Line Worker Device Identifier Shelf Expiration Date Model / Serial / Lot [id number] Screw Bone Spine Schnz 120mm 4mm - [id number] Explanted:Qty: 1 on 02/05/2022 at [facility] Spine N/A: Spine Lumbar [employer] [place] [id number] / / Description:supply item Insurance [facility] Advance Directives * Full Code (Latest Code Status on File) Date Activated Date Inactivated Comments 02/05/2022 6:30 PM * Full Code Date Activated Date Inactivated Comments 02/05/2022 10:09 AM 02/05/2022 6:30 PM Care Teams Remedial Teacher Relationship Specialty Start Date End Date Diana Martinez PA [address] [address] PCP - General 01/03/22 Carl Goodman MD 31 [facility] [address] [place] [address] Surgery, Orthopedic 01/03/22 Osmar Chicas MD [address] [place] [address] Cardiovascular Disease 01/03/22
--- OUTSIDE RECORDS SUMMARY | 2025-07-31 07:27 | XMS_ITS | Data Portability ---
Author Organization [place] [facility] Carole Bee [place]ONE [place] Address [address] [place] [address] Care Team Providers Care Manager Documentation Name Role Phone EDI LEONARD Referring Provider EDI LEONARD Primary Care Provider Assessment Encounter Date Assessment Date Assessment LastModified by Organization Details LastModified Time 03/27/2023 03/27/2023 HPI : Patient is here for about 3-month follow-up [...] of the right hip at that time. [email or web address] Not available 03/27/2023 10:18:12 12/04/2023 12/04/2023 HPI : Patient is here for almost 1 year [...] joint infection 2023 024 [email or web address] Not available 4 13:52:12 C-reactive protein, quantitativ e, serum or plasma - Joint pain status post arthroplast y, evaluate for joint infection 2023 024 [email or web address] Not available 16:32:41 Referral None recorded. Procedures None recorded. Surgeries None recorded. Imaging MRI, hip, w/o contrast - R total hip replacement , pain, Metal artifact reduction protocolP lease call patient to schedule and hand carry CD 2023 024 [facility] ([facility]) , [address], [address], [place], [address], 4 08:00:28 XR, hip, unilateral, 2 or 3 view 2023 024 [facility], [address], [address], [place], [address], 4 10:00:11 XR, hip, unilateral, 2 or 3 view 2022 023 [email or web address] [facility], [address], [address], [place], [address], 3 12:15:14 Medication Orders prednisone 10 mg tablet 2023 024 [id number], [address] [facility] , [place], [address], 4 13:46:49 Patient TargetsNo targets recorded. Patient Instructions Encounter Date Encounter Id Patient Instructions Last Modified By Organization Details Last Modified Time 12/04/2023 [id number] AP pelvis, AP an d lateral radiographs [...] is marrow edema within the acetab ulum credit union manager iorly with minima l adjace nt soft [...] joint effusi on. Marrow edema within the credit union manager ior acetab ulum with minima l adjace [...] blakely to us, Juan M vega [place] [id number] (Elect maria fernanda quinn Signed - 2023 07:56) Copy: JORDANA Blakely , [email or web address] [facility] [address] [address], [place], [address], 01/07/2024 13:43:29 04/13/20 24 imagi ng/helio blakely No observ ation record ed. [email or web address] Not Available 2023 09:55:17 Result Notes Documentation Provider Name and Address Organization Details Recorded Time Mri, Hip, W/o Contrast : EXAMINATION: MR HIP WITHOUT CONTRAST, RIGHT CLINICAL INFORMATION: Right hip pain. Arthroplasty with subsequent dislocation. COMPARISON: Most recent CT pelvis dated 12/11/2022. TECHNIQUE: Multiplanar MR images of the right hip were obtained on a high-field scanner without intravenous contrast. Metal reduction protocol was utilized. FINDINGS: Total right hip arthroplasty with associated artifact which somewhat limits evaluation despite metal reduction protocol. There is marrow edema within the acetabulum posteriorly with minimal adjacent soft tissue edema. No associated osseous erosion. Findings could represent a stress reaction or be secondary to intra-articular pathology. No additional abnormal marrow signal. Partially visualized left hip arthroplasty without evidence of complication. Orthopedic hardware within the lower lumbar spine. No sacral stress reaction or fracture. No concerning lytic or blastic osseous lesion. Huwiy-gm-hsuoslzh right hip joint effusion. Small amount of fluid within the left greater trochanteric bursa, consistent with mild bursitis. Mild left gluteus medius and gluteus minimus tendinosis. Mild proximal left hamstring tendinosis. No transverse tendon tear or tendon retraction. No soft tissue mass. The visualized intrapelvic structures are grossly unremarkable. IMPRESSION: 1. Total right hip arthroplasty with a nygqi-rd-invsxglo joint effusion. Marrow edema within the posterior acetabulum with minimal adjacent soft tissue edema. Findings could represent a stress reaction or be secondary to intra-articular pathology. No associated osseous erosion. Joint fluid sampling could help further evaluate. 2. Partially visualized left hip arthroplasty without evidence of complication. 3. Mild left greater trochanteric bursitis. Mild left gluteus medius and gluteus minimus tendinosis. Mild proximal left hamstring tendinosis. No transverse tendon tear or tendon retraction. Thank you for referring your patient to us, Juan M Garcia MD [id number] (Electronically Signed - 01/05/2024 07:56) Copy: PATIENT , Terri Antoine argenis, [place] [facility] 01/07/2024 13:43:29 Problems Name Problem SNOMED Code Status Onset Date Resolution Date Notes Provider Name and Address Organization Details Recorded Time Body mass index 30+ - obesity 590703956 Active 2017 BMI 39.0-39.9 ,adult Not Available [facility] 5 00:27:53 Osteoarth ritis of left hip joint 24028998833 9108 Active 2017 Primary osteoarth ritis of left hip Not Available [facility] 5 00:27:55 Lumbar spondylol isthesis 36896073921 9102 Active 2018 Spondylol isthesis of lumbar region Not Available [facility] 5 00:27:52 Neck pain 21213546 Active 2018 Neck pain Not Available [facility] 5 00:27:53 Degenerat ion of cervical intervert ebral disc 24284056 Active 2018 Degenerat katie disc disease, cervical Not Available [facility] 5 00:27:54 Chronic low back pain 392816650 Active 2018 Chronic left-side d low back pain with left-side d sciatica Not Available [facility] 5 00:27:54 Cervical radiculop athy 95200998 Active 2018 Cervical radiculop athy Not Available [facility] 5 00:27:54 Pain of hip region 51714748 Active 2022 Clifton Esteban MD [address], [place], [address] , [place] [facility] 3 12:08:21 Osteoarth ritis of right hip joint 95170288121 9107 Active 2022 Osteoarth ritis of right hip Not Available [facility] 5 00:27:53 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 Procedures Surgical History Date Name Laterality Status Provider Name and Address Organization Details Recorded Time Hip Surgery completed Drew Gutierrez [place] [facility] 01/19/2023 14:11:38 Imaging Results None recorded. Procedure Notes None recorded. Medical Equipment None Reported. Allergies Allergen ID Allergen Name Allergen Category Reaction Reaction Severity Criticality Documentation Date Start Date Code Code System Note Provider Name and Address Organization Details Recorded Time 1296 gabapenti n medicatio n Not available Not available Not available 12/05/2022 44355 RxNorm [place], [place] [facility] 4 08:58:45 91764 morphine medicatio n Not available Not available Not available 12/04/2023 7052 RxNorm Krystal [place] null, [place] [facility] 4 08:58:51 29729 amoxicill in medicatio n Not available Not available Not available 12/04/2023 723 RxNorm Krystal [place] null, [place] [facility] 4 08:58:57 03924 Vibramyci n medicatio n Not available Not available Not available 12/04/2023 06055 5 RxNorm Krystal [place] null, [place] [facility] 4 08:59:05 42112 doxycycli ne Not available Not available Not available Not available 05/30/20252017 3640 RxNorm React ion: Other (See Comme nts), sever ity: Unkno wn;GI BLEED INGIn terna l bleed ing Not Available [facility] 5 01:25:30 09465 latex environme nt,medica tion Not available Not available Not available 05/30/20252021 87423 91 RxNorm React ion: Itchi ng, sever ity: Unkno wn;C/ O: itchi ng Not Available [facility] 5 01:25:31 95503 Iodinated contrast media (substanc e) medicatio n Not available Not available Not available 05/30/20252021 04128 2003 SNOMED React ion: Short ness Of Breat h, sever ity: Unkno wn;SO BHas recen tly had contr asted Dye witho ut react ion Not Available [facility] 5 01:25:31 Medications Name Sig Start Date Stop Date Status Note LastModified by Organization Details LastModified Time cyclobenzap rine 10 mg tablet TAKE 1 TABLET ORALLY 3 TIMES A DAY NEEDED FOR MUSCLE SPASM active Not Available Not Available No t Available lamotrigine 150 mg tablet TAKE 1 TABLET BY MOUTH TWICE A DAY active Not Available Not Available No t Available acetaminoph en 325 mg tablet Take 3 tablets (975 mg total) by mouth every 8 (eight) hours. 11/19 completed Not Available Not Available Not Available prednisone 10 mg tablet PLEASE SEE ATTACHED FOR DETAILED DIRECTION S active Not Available Not Available No t Available clindamycin HCl 300 mg capsule TAKE 1 CAPSULE BY MOUTH EVERY 8 HOURS UNTIL FINISHED active Not Available Not Available No t Available atorvastati n 10 mg tablet TK 1 T PO D HS FOR HIGH CHOLESTER OL 08/09 completed Not Available Not Available Not Available tizanidine 4 mg tablet Take 2 mg by mouth 3 (three) times a day. 11/19 completed Not Available Not Available Not Available meloxicam 15 mg tablet Take 1 tablet (15 mg total) by mouth daily as needed. 12/20 completed Not Available Not Available Not [...] sertraline 100 mg tablet Take 1 tablet (100 mg total) by mouth 2 (two) times a day. Patient takes 100mg in the morning, 50mg at bedtime active Not Available Not Available No t Available methylpredn isolone 4 mg tablet follow package direction s 11/19 completed Not Available Not Available Not Available [...] Not Available Not Available No t Available melatonin 3 mg tablet Take 6 mg by mouth every night at bedtime. 08/09 completed Not Available Not Available Not Available aspirin 81 mg tablet,kavita yed release Take 1 tablet (81 mg total) by mouth 2 (two) times a day after meals. active Not Available Not Available No t Available acetaminoph en 500 mg tablet Take 2 tablets (1,000 mg total) by mouth every 8 (eight) hours as needed for pain. 2022 active Not Available Not Available Not Avai lable lamotrigine 25 mg tablet TAKE 1 TAB IN THE AM AND 2 AT BEDTIME AND AFTER 2 WEEKS TAKE 2 TABLET BY MOUTH 2 TIMES A DAY 12/03 completed Not Available Not Available Not Available baclofen 20 mg tablet Take 1 tablet (20 mg total) by mouth 3 (three) times a day. 08/09 completed Not Available Not Available Not Available hydromorpho ne 2 mg tablet 12/03 completed Not Available Not Available Not Available methocarbam ol 750 mg tablet TAKE 1 TABLET 3 TIMES A DAY BY ORAL ROUTE NEEDED. 12/03 completed Not Available Not Available Not Available tamsulosin 0.4 mg capsule Take 0.4 mg by mouth daily. 11/19 completed Not Available Not Available Not Available [...] Available Not Available No t Available gabapentin 300 mg capsule Take 2 capsules (600 mg total) by mouth 3 (three) times a day. 11/19 completed Not Available Not Available Not Available Senna Laxative 8.6 mg tablet 03/29 /2024 completed Not Available Not Available Not Available levetiracet am 750 mg tablet TAKE 1 TABLET BY MOUTH EVERY 12 HOURS 12/03 completed Not Available Not Available Not Available hydrochloro thiazide 25 mg tablet Take 25 mg by mouth daily. 11/19 completed Not Available Not Available Not Available zolpidem 5 mg tablet Take 10 mg by mouth every night at bedtime as needed for sleep. 11/13 completed Not Available Not Available Not Available gabapentin 100 mg capsule TAKE 1 CAPSULE BY MOUTH TWICE A DAY 12/03 completed Not Available Not Available Not Available lorazepam 1 mg tablet Take 1 tablet by mouth 2 (two) times a day. 08/09 completed Not Available Not Available Not Available ibuprofen 600 mg tablet TAKE 1 TABLET BY MOUTH THREE TIMES A DAY NEEDED FOR PAIN active Not Available Not Available No t Available zolpidem 10 mg tablet TAKE 1/2 TO 1 TABLET AT BEDTIME NEEDED FOR SLEEP 12/03 completed Not Available Not Available Not Available fluoxetine 20 mg capsule Take 20 mg by mouth daily. 11/19 completed Not Available Not Available Not Available lamotrigine 100 mg tablet TAKE 1 AND 1/2 TABLET BY MOUTH TWICE A DAY 12/03 completed Not Available Not Available Not Available oxycodone 5 mg tablet TAKE 1 TABLET BY MOUTH EVERY 4 HOURS NEEDED FOR PAIN active Not Available Not Available No t Available valsartan 40 mg tablet Take 1 tablet (40 mg total) by mouth daily. active Not Available Not Available No t Available aripiprazol e 5 mg tablet Take 0.5 tablets (2.5 mg total) by mouth daily. active Not Available Not Available No t Available rosuvastati n 10 mg tablet TAKE 1 TABLET BY MOUTH EVERYDAY AT BEDTIME active Not Available Not Available No t Available memantine 10 mg tablet Take 10 mg by mouth 2 (two) times a day. 11/19 completed Not Available Not Available Not Available duloxetine 20 mg capsule,del ayed release [...] Not Available Not Available No t Available cholecalcif kaylene (vitamin D3) 1,250 mcg (50,000 unit) capsule TAKE ONE CAPSULE BY MOUTH TWICE A WEEK FOR 30 DAYS 08/09 completed Not Available Not Available Not Available GaviLyte-G 236 gram-22.74 gram-6.74 gram-5.86 gram oral solution TAKE 8 OUNCE BY MOUTH DIRECTED FOLLOW PREP INSTRUCTI ONS GIVEN BY YOUR DOCTOR'S OFFICE active Not Available Not Available No t Available Stimulant Laxative Plus 8.6 mg-50 mg tablet Take 1 tablet by mouth 2 (two) times a day. 12/03 completed Not Available Not Available Not Available duloxetine 40 mg capsule,del ayed release TAKE 1 CAPSULE BY MOUTH EVERY DAY 12/20 completed Not Available Not Available Not Available Vitals Date Recorded Body height Provider Name an d Address Organization Details Last Updated DateTime 12/04/2023 [address] [place] [facility] 12/04/2023 08:58:35 Date Recorded Body height Provider Name an d Address Organization Details Last Updated DateTime 01/08/2024 167[address] [place] [facility] 01/08/2024 15:16:31 Date Recorded Body height Body mass index (BMI) Body weight Provider Name and Address Organization Details Last Updated DateTime 03/27/2023 167.64 cm 33.9 kg/m2 86118.[address] [place] [facility] 03/27/2023 09:40:02 Social History None recorded. [...] ICD10 Code Diagnosis IMO Codes Diagnosis Note 3017 Clifton Esteban MD [place] [address] [place] [address] 12/05/2022 10:48:48 12/05/2022 12:18:45 Pain of right hip joint 3070256192 60215 M25.551 Pain of hip region 51551 002 M25.551 Osteoarthr itis of right hip joint 9464406505 10351 M16.11 98920 ADALGISA ALMANZAR [facility] [address] [address] 01/19/2023 14:09:20 01/19/2023 14:26:04 History of total replacement of right hip joint 1836329872 83315 Z96.641 24434 MD [facility] [address] [address] 02/17/2023 12:41:16 02/17/2023 13:28:28 Dislocation of hip joint prosthesis 377404145 Z96.649 33570 MD [facility] [address] [address] 03/27/2023 09:26:25 03/27/2023 10:11:48 History of right hip replacement 1891515181 702099 Z96.641 Aftercare 815136309 Z47. 1 87013 MD [facility] [address] [address] 12/04/2023 08:43:03 12/04/2023 09:22:32 History of total replacement of right hip joint 7721061568 53843 Z96.641 Surgical follow-up 11316 4000 Z47.1 Z96.641 Additional diagnosis detail: Aftercare following right hip joint replacemen t surgery 04631 MD [facility] [address] [address] 12/22/2023 13:11:04 12/22/2023 13:38:26 History of total replacement of right hip joint 0834046689 27602 Z96.641 Pain of hip region 48394 002 M25.551 15448 MD [facility] [address] [address] 01/08/2024 15:06:37 01/08/2024 15:37:06 History of total replacement of right hip joint 2057948837 11788 Z96.641 Pain of hip region 02854 002 M25.551 42756 MD [facility] [address] [place] [address] 04/12/2024 13:20:58 04/12/2024 13:47:54 History of total replacement of right hip joint 2086592747 73417 Z96.641 Health Concerns Section Related Observation LastModified by Organization Detai ls LastModified Time None Recorded Concern Status LastModified by Organization Details LastModified Time None Recorded Advance Directives Directive None Recorded Payers Insurance Date Sequence Insurance Name Policy Number Policy Carty Covered Member ID Carty Member ID Guarantor Name 12/04/2023 [id number] [id number] Nina Bella 04/11/2024 1 [facility] (MEDICARE REPLACEMENT/ ADVANTAGE - HMO) [id number] Nina Bella [id number] Nina Bella OBGyn Episode No OBEpisode recorded.
--- OUTSIDE RECORDS SUMMARY | 2025-07-31 07:27 | XMS_ITS | Patient Health Record ---
Author Organization [facility] Address [address] [facility] [place] [address] Care Team Providers Care Platform Worker Name Role Phone Floyd Romero Primary Care Provider Aleisha Holguin Unavailable [phone] Allergies Allergen (clinical drug ingredient) Drug/Non Drug [...] W/U Status Risk Notes Problem Plantar fibromatosis (50939668) Plantar fibromatosis (M72.2) Active confirmed Problem Plantar fascial fibromatosis (74435323) Plantar fasciitis, bilateral (M72.2) Active confirmed Vital Signs Blood pressure diastolic 80 mm Hg 09/21/2024 Height 5ft6in in 09/21/2024 Blood pressure systolic 120 mm Hg 09/21/2024 Weight 190 lbs 09/21/2024 BMI 30.66 kg/m2 09/21/2024 Encounters Encounter Location Date Provider Diagnosis [facility] [address] [place] [address] 09/21/2024 Aleisha Mahan Plantar fibromatosis M72.2 Assessments Encounter Date Diagnosis (ICD Code) Assessment Notes Treatment Notes Treatment Clinical Notes Section Notes 09/21/2024 Plantar fibromatosis (ICD-10 - M72.2) 09/21/2024 Other Plan Of Treatment No Information Insurance Providers Payer Name Payer Address Payer Phone Subscriber Number Group Number Insured Name Patient Relationship to Insured Coverage Start Date Coverage End Date [employer] Medicare [id number] [address] [address] [place] [address] [phone] [id number] Nina Bella Self - patient is the insured Medical (General) History Medical History History ICD Code Arthritis Back,Hip,and Knee pain Depression Seizures High Blood Pressure Numbness Chicken pox Joint implants/screws Surgical History Surgery Date(Month/Year) hip replacement back fusions endoscopy 07/12/24 colonoscopy 07/08/24
--- OUTSIDE RECORDS SUMMARY | 2025-07-31 07:28 | XMS_ITS | Encounter Summary ---
Author Organization [facility] Address [address] [place] [address] Care Team Providers Care Supervisor Transferring And Boxing Name Role Phone Diana Martinez Primary Care Provider [phone] Carl Goodman MD Unavailable Osmar Chicas MD Unavailable [phone] Encounter Details Date Type Department Care Team (Late st Contact Info) Description 05/28/2023 Scanned Document [facility] Department of Internal Medicine [place] [address] [place] [address] Diana Martinez PA [address] [place], [place] [id number] Social History Tobacco Use Types Packs/Day Years [...] on filedocumented in this encounter Care Teams Supervisor Transferring And Boxing Relationship Specialty Start Date End Date Diana Martinez PA [address] [place] [address] PCP - General 01/03/22 Carl Goodman MD [address] [address] Surgery, Orthopedic 01/03/22 Osmar Chicas MD [address] [place] [id number] Cardiovascular Disease 01/03/22 documented as of this encounter
--- OUTSIDE RECORDS SUMMARY | 2025-07-31 07:28 | XMS_ITS | Encounter Summary ---
Author Organization [facility] Address [address] [place] [address] Care Team Providers Care Dinkey Motor Operator Name Role Phone Diana Martinez Primary Care Provider [phone] Carl Goodman MD Unavailable Osmar Chicas MD Unavailable [phone] Encounter Details Date Type Department Care Team (Late st Contact Info) Description 02/10/2023 Scanned Document [facility] Department of Internal Medicine [place] [address] [place] [address] Diana Martinez PA [address] [place], [place] [phone] Social History Tobacco Use Types Packs/Day Years [...] on filedocumented in this encounter Care Teams Dinkey Motor Operator Relationship Specialty Start Date End Date Diana Martinez PA [address] [place] [address] PCP - General 01/03/22 Carl Goodman MD [address] [address] Surgery, Orthopedic 01/03/22 Osmar Chicas MD [address] [place] [id number] Cardiovascular Disease 01/03/22 documented as of this encounter
== END ==
LOC: HO.SL 20:00
PROVIDERS: PCP Internal Medicine; Visit Provider Psychiatry & Neurology Neurology
DX: G47.33 Obstructive sleep apnea (adult) (pediatric) (principal)
CPT/HCPCS: 95810

== ENCOUNTER → 2025-07-30 20:30 | Outpatient (BNV) | payer MEDICARE, MEDICAID, SELFPAY | PROVIDERS: PCP Internal Medicine; Visit Provider Psychiatry & Neurology Neurology | DX: R06.83 Snoring (principal) | CPT/HCPCS: 95810 ==

== ENCOUNTER 2025-08-11 06:44 | Emergency (ER) | payer MEDICARE, MEDICAID, SELFPAY ==
--- NOTE | ~2025-08-11 | XR_ITS ---
CLINICAL HISTORY: cough 1 view chest x-ray Comparison: None provided Findings: The lungs are clear. Heart size is normal. No acute fracture. IMPRESSION: 1. No acute findings. This document has been electronically signed by: Anthony Weir MD on 08/11/2025 07:42:03
[2025-08-11 06:47] VITALS: BP 125/74; PULSE 114; RESP 20; TEMP 36.9; O2SAT 98; BMI 38.7
--- NOTE | 2025-08-11 06:58 | ED.URI ---
HPI - URI/Sore Throat General Chief Complaint: Upper Respiratory Symptoms Stated Complaint: diff breathing Time Seen by Provider: 08/11/25 06:53 Source: patient Mode of arrival: ambulatory Limitations: no limitations History of Present Illness HPI Narrative: This is a 60 years old the patient with a history of hypertension DJD hypercholesterolemia she presented to the emergency department complaining cough, fever shortness of breath add daughter was diagnosed with a influenza. Symptoms started about 3 days ago MD elicited complaint: cough and nasal congestion Onset (ago): day(s) (3) Consistency: constant Severity: moderate Description of mucous: yellow and green Exacerbating factors: nothing Relieving factors: nothing Treatments prior to arrival: none Related Data Home Medications ?Medication ?Instructions ?Recorded ?Confirmed rosuvastatin 10 mg tablet 10 mg PO BEDTIME 11/05/23 07/24/25 valsartan 40 mg tablet 40 mg PO DAILY 02/12/24 07/24/25 aspirin 81 mg tablet 81 mg PO DAILY 06/27/25 07/24/25 Previous Rx's ?Medication ?Instructions ?Recorded magnesium oxide 250 mg PO DAILY #30 tabs 03/20/25 sumatriptan succinate 50 mg tablet 50 mg PO Q2-4H PRN migraine 05/16/25 headache #14 tabs clonazepam 0.5 mg tablet 0.25 - 0.5 mg (0.5 - 1 x 0.5 mg) 05/30/25 PO .COMPLEX PRN anxiety 30 days #60 tabs duloxetine 30 mg capsule,delayed 30 mg PO DAILY 90 days #90 caps 05/30/25 release duloxetine 60 mg capsule,delayed 60 mg PO DAILY 90 days #90 caps 05/30/25 release lamotrigine 200 mg tablet 200 mg PO BID #180 tabs 05/30/25 (Lamictal) risperidone 0.5 mg tablet 0.5 mg PO BID 90 days #180 tabs 05/30/25 (Risperdal) amitriptyline 25 mg tablet 50 mg (2 x 25 mg) PO BEDTIME #60 07/10/25 tabs albuterol sulfate 90 mcg/actuation 1 inh inhalation QID PRN shortness 08/11/25 aerosol inhaler (Ventolin HFA) of breath or wheezing #8.5 grams codeine 10 mg-guaifenesin 200 mg/5 5 ml PO Q6H PRN cough 3 days #250 08/11/25 mL oral liquid mL prednisone 20 mg tablet 60 mg (3 x 20 mg) PO DAILY #12 tabs 08/11/25 Allergies Allergy/AdvReac Type Severity Reaction Status Date / Time amoxicillin Allergy Unknown Rash Verified 08/11/25 06:51 morphine Allergy Unknown Rash Verified 08/11/25 06:51 doxycycline (Vibramycin) AdvReac Unknown GI bleeding Verified 08/11/25 06:51 Vibramycin Allergy Unknown Gastrointestinal Uncoded 04/18/24 19:22 Upset Review of Systems Constitutional: Constitutional: Reports no additional constitutional complaints Cardiovascular: Cardiovascular: Reports no additional cardiovascular complaints Respiratory: Respiratory: Reports pain with cough [facility] Past Medical History Attestation statement: The following information was validated with the patient. [facility] Narrative: DJD, hypertension, hypercholesterolemia Medical History Snoring Migraine Major depression, recurrent Hydrocephalus Low back pain Surgical History History of right hip replacement Social History Social History Alcohol intake: never Advance Directives: Yes Advance Directives Information Provided: No Advance Directives on File: No Physical Exam Exam: Exam: Not toxic appearing afebrile oxygen saturation noted 98% Vital Signs: Vital Signs: Last Vital Signs Temp 98.5 F 08/11/25 12:11 Pulse 101 H 08/11/25 12:11 Resp 18 08/11/25 12:11 BP 118/84 08/11/25 12:11 Pulse Ox 95 08/11/25 12:11 O2 Del Method Room Air 08/11/25 12:11 BMI result Body Mass Index 38.7 Const: General: comfortable and no acute distress Nutritional Appearance: average body habitus Orientation/consciousness: patient oriented x3 HEENT: Head: Yes normal to inspection Ears: hearing grossly normal bilaterally General nose exam: Normal external nose present Face and sinus: Yes normal facial exam Mouth: Normal oral and palatal mucosa present Throat: Yes posterior oropharynx normal Neck: Neck: Yes normal visual inspection Resp: Auscultation: rhonchi and wheezes Cardio: Jugular venous distension: no JVD Rate: regular rate Rhythm: regular rhythm GI: Inspection: Yes normal to inspection Palpation (GI): Soft to palpation, not firm and nontender Auscultation: normal bowel sounds Skin: General skin exam: no rashes or lesions noted and elasticity normal Neuro: General: patient oriented x3 Cranial nerves: Yes CN's II-XII intact bilaterally Course Reevaluation(s) Reevaluation #1: On re-examination she is feeling better clinical picture consistent with the influenza she has minimal wheezing we will discharge home with the inhaler and prednisone too late for Tamiflu Time: 11:56 Medications Administered Discontinued Medications Generic Name Dose Route Start Last Admin Trade Name Freq PRN Reason Stop Dose Admin Albuterol Sulfate 2.5 mg/ 0 mg 08/11/25 10:58 08/11/25 11:02 Albuterol/Ipratropium 3 ml INHALE 08/11/25 10:59 5 dose ONCE ONE Administration Prednisone 60 mg 08/11/25 10:44 08/11/25 10:52 Prednisone 20 Mg Tablet PO 08/11/25 10:45 60 mg ONCE ONE Administration Medical Decision Making Medical Decision Making [facility] Narrative: Patient presented to the emergency department with cough congestion we will obtain chest x-ray,reassess on reexam better pt has influenza but symtoms more than 24h so no tamiflu,02 Sat OK no tachypnea OK to d/c home Differential Diagnosis Differential Diagnoses: The differential diagnosis associated with the presentation includes Pneumonia/bronchitis/influenza/COVID Admission/Observation Consideration of admission/observation: Escalation of care including admission/observation considered Lab Data [facility] Lab Attestation statement: I reviewed the patient's lab results. Labs: Lab Results 08/11/25 Range/Units 07:08 Influenza Type A (PCR) POSITIVE A (Negative) Influenza Type B (PCR) NEGATIVE (Negative) RSV RNA Qual (PCR) NEGATIVE (Negative) SARS-CoV-2 RNA (RT-PCR) NEGATIVE (Negative) Independent Interpretation I performed an independent interpretation of an: Plain X-Ray Interpretation: No acute disease Radiology Impression Discussion of test interpretation with radiology: I have reviewed the radiologist's reading. Radiologist Impression: cc: Bladimir Ceballos MD; Frank Berry MD~ Reason for Exam: cough CLINICAL HISTORY: cough 1 view chest x-ray Comparison: None provided Findings: The lungs are clear. Heart size is normal. No acute fracture. IMPRESSION: 1. No acute findings. This document has been electronically signed by: Anthony Weir MD on 08/11/2025 07:42:03 Dictated By: Anthony Weir MD Signed By: <Electronically signed by Anthony Weir MD in OV> 08/11/25 0742 Discharge Plan Discharge Clinical Impression: Influenza Patient Disposition: Home, Self-Care Instructions: Influenza (DC) Prescriptions: New albuterol sulfate [Ventolin HFA] 90 mcg/actuation HFA aerosol inhaler 1 inh inhalation QID PRN (Reason: shortness of breath or wheezing) Qty: 8.5 0RF prednisone 20 mg tablet 60 mg PO DAILY Qty: 12 0RF codeine-guaifenesin 10-200 mg/5 mL liquid 5 ml PO Q6H PRN (Reason: cough) 3 Days Qty: 250 0RF No Action sumatriptan succinate 50 mg tablet 50 mg PO Q2-4H PRN (Reason: migraine headache) Qty: 14 0RF Rx Instructions: do not exceed 4 doses per 24 hrs amitriptyline 25 mg tablet 50 mg PO BEDTIME Qty: 60 3RF rosuvastatin 10 mg tablet 10 mg PO BEDTIME valsartan 40 mg tablet 40 mg PO DAILY magnesium oxide 250 mg magnesium tablet 250 mg PO DAILY Qty: 30 6RF aspirin 81 mg tablet 81 mg PO DAILY clonazepam 0.5 mg tablet 0.25 - 0.5 mg PO .COMPLEX PRN (Reason: anxiety) 30 Days Qty: 60 2RF Rx Instructions: 0.25 - 0.5 mg orally take 1/2 tablet twice a day and may take an additional tablet PRN severe anxiety PRN; duloxetine 30 mg capsule,delayed release(DR/EC) 30 mg PO DAILY 90 Days Qty: 90 2RF Rx Instructions: in addition to 60 mg daily duloxetine 60 mg capsule,delayed release(DR/EC) 60 mg PO DAILY 90 Days Qty: 90 2RF lamotrigine [Lamictal] 200 mg tablet 200 mg PO BID Qty: 180 0RF risperidone [Risperdal] 0.5 mg tablet 0.5 mg PO BID 90 Days Qty: 180 2RF Interventions: ED Discharge Assessment Last Done: 08/11/25 12:11 Discharge Date/Time: 08/11/25 12:12 Print Language: Czech
[2025-08-11 07:39] VITALS: O2SAT 96
[2025-08-11 07:52] LABS: Resp Syncy Virus RNA Qual PCR NEGATIVE (Negative); SARS COV2 PCR INHOUSE NEGATIVE (Negative)
--- OUTSIDE RECORDS SUMMARY | 2025-08-11 07:52 | XMS_ITS | Encounter Summary ---
Author Organization [facility] Address [address] [place] [address] Care Team Providers Care Health Safety Engineer Name Role Phone Diana Martinez Primary Care Provider [phone]- [phone] Carl Goodman MD Unavailable Osmar Chicas MD Unavailable [phone] Encounter Details Date Type Department Care Team (Late st Contact Info) Description 08/25/2023 Scanned Document [facility] Physicians Department of Internal Medicine [place] [address] [place] [address] Diana Martinez PA [address] [place], [place] [id number] Social History Tobacco Use Types Packs/Day Years Used Date Smoking Tobacco: Former Cigarettes 0 Q uit: 2000 Smokeless Tobacco: Never Alcohol [...] on filedocumented in this encounter Care Teams Health Safety Engineer Relationship Specialty Start Date End Date Diana Martinez PA [address] [place] [address] PCP - General 01/03/22 Carl Goodman MD [address] [address] Surgery, Orthopedic 01/03/22 Osmar Chicas MD [address] [address] Cardiovascular Disease 01/03/22 documented as of this encounter
--- OUTSIDE RECORDS SUMMARY | 2025-08-11 07:53 | XMS_ITS | Encounter Summary ---
Author Organization [facility] Address [address] [place] [address] Care Team Providers Care Outdoor Emergency Care Technician Name Role Phone Diana Martinez Primary Care Provider [phone]- [phone] Carl Goodman MD Unavailable Osmar Chicas MD Unavailable [phone] Encounter Details Date Type Department Care Team (Late st Contact Info) Description 10/13/2023 Scanned Document [facility] Physicians Department of Internal Medicine [place] [address] [place] [address] Diana Martinez PA [address] [place], [place] [id number] Social History Tobacco Use Types Packs/Day Years [...] on filedocumented in this encounter Care Teams Outdoor Emergency Care Technician Relationship Specialty Start Date End Date Diana Martinez PA [address] [place] [address] PCP - General 01/03/22 Carl Goodman MD [address] [place] [address] [address] Surgery, Orthopedic 01/03/22 Osmar Chicas MD [address] [address] Cardiovascular Disease 01/03/22 documented as of this encounter
--- OUTSIDE RECORDS SUMMARY | 2025-08-11 07:53 | XMS_ITS | Encounter Summary ---
Author Organization [facility] Address [address] [place] [address] Care Team Providers Care Deep Submergence Vehicle Crewmember Name Role Phone Diana Martinez Primary Care Provider [phone]- [phone] Carl Goodman MD Unavailable Osmar Chicas MD Unavailable [phone] Encounter Details Date Type Department Care Team (Late st Contact Info) Description 12/07/2022 Scanned Document [facility] Department of Internal Medicine [place] [address] [place] [address] Diana Martinez PA [address] [place] [address] Social History Tobacco Use Types [...] on filedocumented in this encounter Care Teams Deep Submergence Vehicle Crewmember Relationship Specialty Start Date End Date Diana Martinez PA [address] [place], [place] [id number] PCP - General 01/03/22 Carl Goodman MD [address] [address] Surgery, Orthopedic 01/03/22 Osmar Chicas MD [address] [place] [id number] Cardiovascular Disease 01/03/22 documented as of this encounter
--- OUTSIDE RECORDS SUMMARY | 2025-08-11 07:53 | XMS_ITS | Encounter Summary ---
Author Organization [facility] Address [address] [place] [address] Care Team Providers Care Office Administration Instructor Name Role Phone Diana Martinez Primary Care Provider [phone]- [phone] Carl Goodman MD Unavailable Osmar Chicas MD Unavailable [phone] Encounter Details Date Type Department Care Team (Late st Contact Info) Description 10/23/2023 Scanned Document [facility] Physicians Department of Internal Medicine [place] [address] [place] [address] Diana Martinez PA [address] [place], [place] [address] Social History Tobacco Use Types Packs/Day Years [...] on filedocumented in this encounter Care Teams Office Administration Instructor Relationship Specialty Start Date End Date Diana Martinez PA [address] [place] [address] PCP - General 01/03/22 Carl Goodman MD [address] [address] Surgery, Orthopedic 01/03/22 Osmar Chicas MD [address] [address] Cardiovascular Disease 01/03/22 documented as of this encounter
--- OUTSIDE RECORDS SUMMARY | 2025-08-11 07:53 | XMS_ITS | Encounter Summary ---
Author Organization [facility] Address [address] [place] [address] Care Team Providers Care Cnc Mill And Lathe Operator Name Role Phone Diana Martinez Primary Care Provider [phone]- [phone] Carl Goodman MD Unavailable Osmar Chicas MD Unavailable [phone] Encounter Details Date Type Department Care Team (Late st Contact Info) Description 09/10/2023 Scanned Document [facility] Physicians Department of Internal Medicine [place] [address] [place] [address] Diana Martinez PA [address] [place], [place] [id number] Social History Tobacco Use Types Packs/Day Years [...] on filedocumented in this encounter Care Teams Cnc Mill And Lathe Operator Relationship Specialty Start Date End Date Diana Martinez PA [address] [place] [address] PCP - General 01/03/22 Carl Goodman MD [address] [address] Surgery, Orthopedic 01/03/22 Osmar Chicas MD [address] [address] Cardiovascular Disease 01/03/22 documented as of this encounter
--- OUTSIDE RECORDS SUMMARY | 2025-08-11 07:54 | XMS_ITS | Encounter Summary ---
Author Organization [facility] Address [address] [place] [address] Care Team Providers Care Cable Technician Name Role Phone Diana Martinez Primary Care Provider [phone]- [phone] Carl Goodman MD Unavailable Osmar Chicas MD Unavailable [phone] Encounter Details Date Type Department Care Team (Late st Contact Info) Description 11/12/2022 Scanned Document [facility] Department of Internal Medicine [place] [address] [place] [address] Diana Martinez PA [address] [place] [address] Social History Tobacco Use Types [...] on filedocumented in this encounter Care Teams Cable Technician Relationship Specialty Start Date End Date Diana Martinez PA [address] [place], [place] [id number] PCP - General 01/03/22 Carl Goodman MD [address] [address] Surgery, Orthopedic 01/03/22 Osmar Chicas MD [address] [place] [address] Cardiovascular Disease 01/03/22 documented as of this encounter
--- OUTSIDE RECORDS SUMMARY | 2025-08-11 07:54 | XMS_ITS | Clinical Summary ---
Author Organization [facility] Prior to 02/04/25 Address [address] [place] [address] Care Team Providers Care Licensed Insurance Agent Name Role Phone Diana Martinez Primary Care Provider [phone]- [phone] Allergies Active Allergy Reactions Criticality Noted Date [...] this topic Medical Devices Implanted Type Area Emt/Dispatcher Device Identifier Shelf Expiration Date Model / Serial / Lot Surgiflo Hemostatic Matrix [facility] 2991-809545 - [id number] Implanted:Qty : 2 on 08/09/2021 by Andrea Polanco DO at [facility] Hemostatic Agent Anterior: Spine Cervical [facility] [employer] 11/04/2022 2991 / / [id number] Size 5 Standard Tapered Stem Cementless Implanted:Qty : 1 on 12/29/2022 by Clifton Esteban MD at [facility] Total Joint Right: Hip [id number] 10/01/2027 / / [id number] 36 +4 Femoral Head Implanted:Qty : 1 on 12/29/2022 by Clifton Esteban MD at [facility] Total Joint Right: Hip [id number] 07/04/2026 / / [id number] Description:[place] 36mm +4mm Acetabular Liner 36mm X 52\54 10 Hood E-Max - [id number] - [id number] Implanted:Qty : 1 on 04/07/2018 by Bairon Adame MD at [facility] Left: Hip RENOVI 09/19/2022 1523-365 -254 / / [id number] Cancellous Bone Screw 6.5mm X 20mm - [id number] - [id number] Implanted:Qty : 1 on 04/07/2018 by Bairon Adame MD at [facility] Left: Hip RENOVI 10/26/2022 1501-865 -020 / / [id number] Acetabular Bone Screw 6.5mm X 30mm - [id number] - [id number] Implanted:Qty : 1 on 04/07/2018 by Bairon Adame MD at [facility] Left: Hip RENOVI 08/22/2021 1501-865 -030 / / [id number] Stem Tapered Femoral Extended-Late ral Offset 6.75mm - 764213 - [id number] Implanted:Qty : 1 on 04/07/2018 by Bairon Adame MD at [facility] Left: Hip RENOVI 07/21/2022 1401-922 -067 / / [id number] Biol[employer] Delta Ceramic Femoral Head Sz 36mm -4 - 390791 - [id number] Implanted:Qty : 1 on 04/07/2018 by Bairon Adame MD at [facility] Left: Hip RENOVI 03/03/2022 1451-036 -004 / / [id number] Plate [place] 57mm 3 Level Bone Stry-K2m [id number] 67927 - [id number] Implanted:Qty : 1 on 08/09/2021 by Andrea Polanco DO at [facility] Anterior: Spine Cervical [employer] DQ48-10F 57V / / Screw [place] Self-Start 4x16mm Stry-K2m 8801-25119rt- 125104 - [id number] Implanted:Qty : 7 on 08/09/2021 by Andrea Polanco DO at [facility] Anterior: Spine Cervical [employer] 8801-040 16DA / / Screw [place] 16mm 4.5mm Self St Stry-Howm 8801-44355ls- 736112 - [id number] Implanted:Qty : 1 on 08/09/2021 by Andrea Polanco DO at [facility] Anterior: Spine Cervical [employer] 8801-045 16DA / / Spacer Vikos 14.5x11.5x8mm 7d Stry-Spin 2848-02727k-4 84538 - [id number] Implanted:Qty : 1 on 08/09/2021 by Andrea Polanco DO at [facility] Anterior: Spine Cervical [employer] 06/12/2025 2504-214 08L / [id number] / Spacer Vikos 14.5x11.5x7mm 7d Stry-Spin 0208-94627q-7 93443 - [id number] Implanted:Qty : 1 on 08/09/2021 by Andrea Polanco DO at [facility] Anterior: Spine Cervical [employer] 10/24/2025 2504-214 07L / [id number] / Spacer Vikos 14.5x11.5x7mm 7d Stry-Spin 2459-27127q-7 11459 - [id number] Implanted:Qty : 1 on 08/09/2021 by Andrea Polanco DO at [facility] Anterior: Spine Cervical [employer] 08/02/2025 2504-214 07L / [id number] / Hip Cup Marie Tpr 52mm Sz3 Crng-Manu 321.03.352-63 6960 - [id number] Implanted:Qty : 1 on 12/29/2022 by Clifton Esteban MD at [facility] Right: Hip [employer] [id number] 10/13/2027 321.03.3 52 / / [id number] Screw Marie 6.5x25mm Crng-Manu 321.025-13987 7 - [id number] Implanted:Qty : 1 on 12/29/2022 by Clifton Esteban MD at [facility] Right: Hip [employer] [id number] 09/02/2027 321.025 / / [id number] Screw Marie 6.5x20mm Crng-Manu 321.020-52058 6 - [id number] Implanted:Qty : 1 on 12/29/2022 by Clifton Esteban MD at [facility] Right: Hip [employer] [id number] 10/02/2027 321.020 / / [id number] Marie Liner Ecima Neutral Offset Implanted:Qty : 1 on 12/29/2022 by Clifton Esteban MD at [facility] Right: Hip [employer] 10/29/2027 322.03.6 36 / / [id number] Explanted Type Area Emt/Dispatcher Device Identifier Shelf Expiration Date Model / Serial / Lot Acetabular Shell Cluster Hole Sz 54mm - [id number] - [id number] Implanted:Qty: 1 on 04/07/2018 by Bairon Adame MD at [facility] Explanted:Qty: 1 on 02/11/2023 at [facility] and [facility] Left: Hip RENOVI 12/13/2021 1501-121 -05 3553-2 Advance Directives For more information, please contact: [phone] Documents on File Type Date Recorded 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 Full Code 08/09/2021 12:40 PM 08/12/2021 9:22 PM This code status was ascertained in the following way: discussion with patient . Care Teams Licensed Insurance Agent Relationship Specialty Start Date End Date Diana Martinez PA [address] [place] [address] PCP - General Physician Paper Conservator 12/29/22
--- OUTSIDE RECORDS SUMMARY | 2025-08-11 07:54 | XMS_ITS | Encounter Summary ---
Author Organization [facility] Address [address] [place] [address] Care Team Providers Care Art Studio Teacher Name Role Phone Diana Martinez Primary Care Provider +[phone]- [phone] Carl Goodman MD Unavailable Osmar Chicas MD Unavailable [phone] Encounter Details Date Type Department Care Team (Late st Contact Info) Description 12/01/2022 Scanned Document [facility] Department of Internal Medicine [place] [address] [place] [address] Diana Martinez PA [address] [place] [address] Social History Tobacco Use Types [...] on filedocumented in this encounter Care Teams Art Studio Teacher Relationship Specialty Start Date End Date Diana Martinez PA [address] [place], [place] [id number] PCP - General 01/03/22 Carl Goodman MD [address] [address] Surgery, Orthopedic 01/03/22 Osmar Chicas MD [address] [place] [address] Cardiovascular Disease 01/03/22 documented as of this encounter
--- OUTSIDE RECORDS SUMMARY | 2025-08-11 07:54 | XMS_ITS | Encounter Summary ---
Author Organization [facility] Address [address] [place] [address] Care Team Providers Care Rehabilitation Teacher Name Role Phone Diana Martinez Primary Care Provider +[phone]- [phone] Carl Goodman MD Unavailable Osmar Chicas MD Unavailable [phone] Encounter Details Date Type Department Care Team (Late st Contact Info) Description 10/12/[address] [facility] Physicians Department of Internal Medicine [place] [address] [place] [address] Diana Martinez PA [address] [place], [place] [address] Social History Tobacco Use Types Packs/Day Years [...] on filedocumented in this encounter Care Teams Rehabilitation Teacher Relationship Specialty Start Date End Date Diana Martinez PA [address] [place] [address] PCP - General 01/03/22 Carl Goodman MD [address] [address] Surgery, Orthopedic 01/03/22 Osmar Chicas MD [address] [address] Cardiovascular Disease 01/03/22 documented as of this encounter
--- OUTSIDE RECORDS SUMMARY | 2025-08-11 07:55 | XMS_ITS | Clinical Summary ---
Author Organization [facility] Address [address] [place] [address] Care Team Providers Care Scout Professional Sports Name Role Phone Diana Martinez Primary Care Provider [phone] Carl Goodman MD Unavailable Osmar Chicas MD Unavailable Allergies Active Allergy Reactions Criticality Noted Date [...] 0 Q uit: 2000 Smokeless Tobacco: Never Tobacco [...] this topic Medical Devices Implanted Type Area Crystalizer Device Identifier Shelf Expiration Date Model / Serial / Lot 193.334 Spacer Spinal [id number] Rise-L 10d Nonst - [id number] Implanted:Qty: 2 on 02/05/2022 by Carl Goodman MD at [facility] Cage N/A: Spine Lumbar [employer] 193.334 / / [id number] Voyager Mas Screw Implanted:Qty: 2 on 02/05/2022 by Carl Goodman MD at [facility] Screw N/A: Spine Lumbar [employer] MINIMALLY INVASIVE T [id number] / / [id number] Screw Set 5.5/6mm Cd Hzn Soleral Vygr Nonst Lf - [id number] Implanted:Qty: 6 on 02/05/2022 by Carl Goodman MD at [facility] Screw N/A: Spine Lumbar [employer] MINIMALLY INVASIVE T [id number] / / [id number] Screw Bone Spine Cd Hzn Vygr 50mm 6.5mm Ma Nonst 5.5mm Nestor - [id number] Implanted:Qty: 2 on 02/05/2022 by Carl Goodman MD at [facility] Spine N/A: Spine Lumbar [employer] MINIMALLY INVASIVE T [id number] / / [id number] Screw Bone Spine Cd Hzn Vygr 45mm 6.5mm Ma Nonst 5.5mm Nestor - [id number] Implanted:Qty: 2 on 02/05/2022 by Carl Goodman MD at [facility] Spine N/A: Spine Lumbar [employer] MINIMALLY INVASIVE T [id number] / / [id number] Tab Fixation 5.5/6mm Spine Cartridge Filler Sleeve - [id number] Implanted:Qty: 12 on 02/05/2022 by Carl Goodman MD at [facility] Spine N/A: Spine Lumbar [employer] MINIMALLY INVASIVE T [id number] / / [id number] Graft Bone 23mm 14mm Infs Sm Spine Rhbmp-2 Bvn Collagen - [id number] Implanted:Qty: 1 on 02/05/2022 by Carl Goodman MD at [facility] Tissue N/A: Spine Lumbar [employer] MINIMALLY INVASIVE T 06/06/2024 [id number] / / [id number] Graft Bone Kore Fiber Marcial Bone Fiber 5cc Algrf Mld High - [id number] Implanted:Qty: 1 on 02/05/2022 by Carl Goodman MD at [facility] Tissue N/A: Spine Lumbar [employer] FOU 02/21/2024 [id number] / [id number] / 5.5/6.0 Sv Cap Implanted:Qty: 6 on 02/05/2022 by Carl Goodman MD at [facility] N/A: Spine Lumbar [employer] MINIMALLY INVASIVE T [id number] / / 5.5 Ccm Prec Nestor 80mm Implanted:Qty: 2 on 02/05/2022 by Carl Goodman MD at [facility] N/A: Spine Lumbar [employer] MINIMALLY INVASIVE T [id number] / / Explanted Type Area Crystalizer Device Identifier Shelf Expiration Date Model / Serial / Lot [id number] Screw Bone Spine Schnz 120mm 4mm - [id number] Explanted:Qty: 1 on 02/05/2022 at [facility] Spine N/A: Spine Lumbar [employer] MINIMALLY INVASIVE T [id number] / / Description:supply item Insurance [facility] Advance Directives * Full Code (Latest Code Status on File) Date Activated Date Inactivated Comments 02/05/2022 6:30 PM * Full Code Date Activated Date Inactivated Comments 02/05/2022 10:09 AM 02/05/2022 6:30 PM Care Teams Scout Professional Sports Relationship Specialty Start Date End Date Diana Martinez PA [address] [place] [address] PCP - General 01/03/22 Carl Goodman MD [address] [address] Surgery, Orthopedic 01/03/22 Osmar Chicas MD [address] [place] [address] Cardiovascular Disease 01/03/22
--- OUTSIDE RECORDS SUMMARY | 2025-08-11 07:55 | XMS_ITS | Encounter Summary ---
Author Organization [facility] Address [address] [place] [address] Care Team Providers Care Spinner Fixer Name Role Phone Diana Martinez Primary Care Provider [phone]- [phone] Carl Goodman MD Unavailable Osmar Chicas MD Unavailable [phone] Encounter Details Date Type Department Care Team (Late st Contact Info) Description 12/18/2022 Scanned Document [facility] Department of Internal Medicine [place] [address] [place] [address] Diana Martinez PA [address] [place] [address] Social History Tobacco Use Types [...] on filedocumented in this encounter Care Teams Spinner Fixer Relationship Specialty Start Date End Date Diana Martinez PA [address] [place] [address] [place], [place] [id number] PCP - General 01/03/22 Carl Goodman MD [address] [address] Surgery, Orthopedic 01/03/22 Osmar Chicas MD [address] [place] [id number] Cardiovascular Disease 01/03/22 documented as of this encounter
--- OUTSIDE RECORDS SUMMARY | 2025-08-11 07:56 | XMS_ITS | Encounter Summary ---
Author Organization [facility] Address [address] [place] [address] Care Team Providers Care Stripper Preliminary Name Role Phone Brian Chong APRN Primary Care Provider [phone] Diana Martinez Primary Care Provider + [phone] Calr Goodman MD Unavailable Osmar Chicas MD Unavailable [phone] Encounter Details Date Type Department Care Team (Late st Contact Info) Description 10/04/2018 Scanned Document [facility] [place] at [address] [phone] Spine Surgery, Scan Social History Tobacco Use [...] on filedocumented in this encounter Care Teams Stripper Preliminary Relationship Specialty Start Date End Date Brian Chong APRN [address] [place] [address] PCP - General Adult Health - PA/APNP/LAPPING MACHINE TENDER/MOLDING MACHINE OPERATOR HELPER 09/29/18 01/02/22 Diana Martinez PA [address] [place] [id number] PCP - General 01/03/22 Carl Goodman MD [address] [address] Surgery, Orthopedic 01/03/22 Osmar Chicas MD [address] [facility] [address] [place] [id number] Cardiovascular Disease 01/03/22 documented as of this encounter
--- OUTSIDE RECORDS SUMMARY | 2025-08-11 07:56 | XMS_ITS | Encounter Summary ---
Author Organization [facility] Address [address] [place] [address] Care Team Providers Care Bridge Design Engineer Name Role Phone Diana Martinez Primary Care Provider [phone] Carl Goodman MD Unavailable Osmar Chicsa MD Unavailable [phone] Encounter Details Date Type Department Care Team (Late st Contact Info) Description 12/15/2022 Scanned Document [facility] Department of Internal Medicine [place] [address] [place] [address] Diana Martinez PA [address] [place] [address] Social History Tobacco Use Types [...] on filedocumented in this encounter Care Teams Bridge Design Engineer Relationship Specialty Start Date End Date Diana Martinez PA [address] [place] [address] [place], [place] [id number] PCP - General 01/03/22 Carl Goodman MD [address] [address] Surgery, Orthopedic 01/03/22 Osmar Chicas MD [address] [place] [id number] Cardiovascular Disease 01/03/22 documented as of this encounter
--- OUTSIDE RECORDS SUMMARY | 2025-08-11 07:56 | XMS_ITS | Data Portability ---
Author Organization [place] [facility] Car[facility] Address [address] [place] [address] Care Team Providers Care Brick Kiln Burner Name Role Phone EDI LEONARD Referring Provider EDI LEONARD Primary Care Provider [phone] Assessment Encounter Date Assessment Date Assessment LastModified [...] schedule and hand carry CD 2023 024 [facility] ([facility] , [address], [address], [place], [address], 4 08:00:28 XR, hip, unilateral, 2 or 3 view 2023 024 [facility], [address], [address], [place], [address], 4 10:00:11 XR, hip, unilateral, 2 or 3 view 2022 023 [email or web address] [facility], [address], [address], [place], [address], 3 12:15:14 Medication Orders prednisone 10 mg tablet 2023 024 [id number], [address] [facility] , [place], [address], 4 13:46:49 Patient TargetsNo targets recorded. Patient Instructions Encounter Date Encounter Id Patient Instructions Last Modified By Organization Details Last Modified Time 12/04/2023 [id number] AP pelvis, AP an d lateral radiographs [...] is marrow edema within the acetab ulum pill maker iorly with minima l adjace nt soft [...] joint effusi on. Marrow edema within the pill maker ior acetab ulum with minima l adjace [...] blakely to us, Juan M vega MD [id number] (Elect maria fernanda quinn Signed - 2023 07:56) Copy: JORDANA Blakely , [email or web address] [facility] ([facility]) [address] [place] [address], [place], [address], 01/07/2024 13:43:29 04/13/20 24 imagi ng/helio blakely [...] No concerning lytic or blastic osseous lesion. Lxkgy-do-mcppdzgb right hip joint effusion. Small amount of fluid within the left greater trochanteric bursa, consistent with mild bursitis. Mild left gluteus medius and gluteus minimus tendinosis. Mild proximal left hamstring tendinosis. No transverse tendon tear or tendon retraction. No soft tissue mass. The visualized intrapelvic structures are grossly unremarkable. IMPRESSION: 1. Total right hip arthroplasty with a kmymc-vj-xfxtmkri joint effusion. Marrow edema within the posterior [...] patient to us, Juan M Garcia MD [id number] (Electronically Signed - 01/05/2024 07:56) Copy: PATIENT , Terri Antoine argenis, [place] [facility] 01/07/2024 13:43:29 Problems Name Problem SNOMED Code Status Onset Date Resolution Date Notes Provider Name and Address Organization Details Recorded Time Body mass index 30+ - obesity 331463547 Active 2017 BMI 39.0-39.9 ,adult Not Available [facility] 5 00:27:53 Osteoarth ritis of left hip joint 26827556239 9108 Active 2017 Primary osteoarth ritis of left hip Not Available [facility] 5 00:27:55 Lumbar spondylol isthesis 16742606999 9102 Active 2018 Spondylol isthesis of lumbar region Not Available [facility] 5 00:27:52 Neck pain 63297178 Active 2018 Neck pain Not Available [facility] 5 00:27:53 Degenerat ion of cervical intervert ebral disc 50143041 Active 2018 Degenerat katie disc disease, cervical Not Available [facility] 5 00:27:54 Chronic low back pain 937474298 Active 2018 Chronic left-side d low back pain with left-side d sciatica Not Available [facility] 5 00:27:54 Cervical radiculop athy 51636520 Active 2018 Cervical radiculop athy Not Available [facility] 5 00:27:54 Pain of hip region 21367378 Active 2022 Clifton Esteban MD [address], [place], [address] , [place] [facility] 3 12:08:21 Osteoarth ritis of right hip joint 42179682644 9107 Active 2022 Osteoarth ritis of right hip Not Available [facility] 5 00:27:53 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 Procedures Surgical History Date Name Laterality Status Provider Name and Address Organization Details Recorded Time Hip Surgery completed Drew Gutierrez [place] [facility] 01/19/2023 14:11:38 Imaging Results None recorded. Procedure Notes None recorded. Medical Equipment None Reported. Allergies Allergen ID Allergen Name Allergen Category Reaction Reaction Severity Criticality Documentation Date Start Date Code Code System Note Provider Name and Address Organization Details Recorded Time 1296 gabapenti n medicatio n Not available Not available Not available 12/05/2022 26253 RxNorm Krystal [place] null, [place] [facility] 4 08:58:45 50538 morphine medicatio n Not available Not available Not available 12/04/2023 7052 RxNorm Krystal [place] null, [place] [facility] 4 08:58:51 52086 amoxicill in medicatio n Not available Not available Not available 12/04/2023 723 RxNorm Krystal [place] null, [place] [facility] 4 08:58:57 97872 Vibramyci n medicatio n Not available Not available Not available 12/04/2023 95472 5 RxNorm Krystal [place] null, [place] [facility] 4 08:59:05 82306 doxycycli ne Not available Not available Not available Not available 05/30/20252017 3640 RxNorm React ion: Other (See Comme nts), sever ity: Unkno wn;GI BLEED INGIn terna l bleed ing Not Available [facility] 5 01:25:30 62784 latex environme nt,medica tion Not available Not available Not available 05/30/20252021 20724 91 RxNorm React ion: Itchi ng, sever ity: Unkno wn;C/ O: itchi ng Not Available [facility] 5 01:25:31 98852 Iodinated contrast media (substanc e) medicatio n Not available Not available Not available 05/30/20252021 84664 2003 SNOMED React ion: Short ness Of Breat h, sever ity: Unkno wn;SO BHas recen tly had contr asted Dye witho ut react ion Not Available [facility] 5 01:25:31 Medications Name Sig [...] cm Krystal Varg[place]se [place] [facility] 12/04/2023 08:58:35 Date Recorded Body height Provider Name an d Address Organization Details Last Updated DateTime 01/08/2024 167.[address] [place] [facility] 01/08/2024 15:16:31 Date Recorded Body height Body mass index (BMI) Body weight Provider Name and Address Organization Details Last Updated DateTime 03/27/2023 167.64 cm 33.9 kg/m2 63346.[address] [place] [facility] 03/27/2023 09:40:02 Social History None recorded. [...] Diagnosis Note [id number] Clifton Esteban MD IL[place] [address] [place] [address] 12/05/2022 10:48:48 12/05/2022 12:18:45 Pain of right hip joint 7953434935 84473 M25.551 Pain of hip region 02260 002 M25.551 Osteoarthr itis of right hip joint 7725411215 84395 M16.11 [id number] ADALGISA ALMANZAR [facility] [address] [address] 01/19/2023 14:09:20 01/19/2023 14:26:04 History of total replacement of right hip joint 5648798107 61816 Z96.641 [id number] MD [facility] [address] [address] 02/17/2023 12:41:16 02/17/2023 13:28:28 Dislocation of hip joint prosthesis 657251636 Z96.649 [id number] MD [facility] [address] [address] 03/27/2023 09:26:25 03/27/2023 10:11:48 History of right hip replacement 6745643822 369764 Z96.641 Aftercare 320943709 Z47. 1 [id number] MD [facility] [address] [address] 12/04/2023 08:43:03 12/04/2023 09:22:32 History of total replacement of right hip joint 3648706654 82257 Z96.641 Surgical follow-up 07094 4000 Z47.1 Z96.641 Additional diagnosis detail: Aftercare following right hip joint replacemen t surgery [id number] MD [facility] [address] [address] 12/22/2023 13:11:04 12/22/2023 13:38:26 History of total replacement of right hip joint 9573319269 58443 Z96.641 Pain of hip region 00440 002 M25.551 [id number] MD [facility] [address] [address] 01/08/2024 15:06:37 01/08/2024 15:37:06 History of total replacement of right hip joint 5569638760 21050 Z96.641 Pain of hip region 05376 002 M25.551 [id number] MD [facility] [address] [place] [address] 04/12/2024 13:20:58 04/12/2024 13:47:54 History of total replacement of right hip joint 3963879422 30543 Z96.641 Health Concerns Section Related Observation LastModified by Organization Detai ls LastModified Time None Recorded Concern Status LastModified by Organization Details LastModified Time None Recorded Advance Directives Directive None Recorded Payers Insurance Date Sequence Insurance Name Policy Number Policy Carty Covered Member ID Carty Member ID Guarantor Name 12/04/2023 1 [facility] Nina Bella [id number] Nina Bella 04/11/2024 1 [facility] (MEDICARE REPLACEMENT/ ADVANTAGE - HMO) [id number] Nina Bella [id number] Nina Bella OBGyn Episode No OBEpisode recorded.
--- OUTSIDE RECORDS SUMMARY | 2025-08-11 07:57 | XMS_ITS | Encounter Summary ---
Author Organization [facility] Address [address] [place] [address] Care Team Providers Care Blacksmith Farm Name Role Phone Diana Martinez Primary Care Provider [phone]- [phone] Carl Goodman MD Unavailable Osmar Chicas MD Unavailable [phone] Encounter Details Date Type Department Care Team (Late st Contact Info) Description 02/10/2023 Scanned Document [facility] Department of Internal Medicine [place] [address] [place] [address] Diana Martinez PA [address] [place], [place] [phone] Social History Tobacco Use Types Packs/Day Years [...] on filedocumented in this encounter Care Teams Blacksmith Farm Relationship Specialty Start Date End Date Diana Martinez PA [address] [place] [address] PCP - General 01/03/22 Carl Goodman MD [address] [address] Surgery, Orthopedic 01/03/22 Osmar Chicas MD [address] [address] Cardiovascular Disease 01/03/22 documented as of this encounter
--- OUTSIDE RECORDS SUMMARY | 2025-08-11 07:58 | XMS_ITS | Encounter Summary ---
Author Organization [facility] Address [address] [place] [address] Care Team Providers Care Marine Fuel Dock Attendant Name Role Phone Diana Martinez Primary Care Provider [phone] Carl Goodman MD Unavailable Osmar Chicas MD Unavailable [phone] Encounter Details Date Type Department Care Team (Late st Contact Info) Description 05/28/[address] [facility] Department of Internal Medicine [place] [address] [place] [address] Diana Martinez PA [address] [place], [place] [phone] Social History Tobacco Use Types Packs/Day Years [...] on filedocumented in this encounter Care Teams Marine Fuel Dock Attendant Relationship Specialty Start Date End Date Diana Martinez PA [address] [place] [address] PCP - General 01/03/22 Carl Goodman MD [address] [address] Surgery, Orthopedic 01/03/22 Osmar Chicas MD [address] [address] Cardiovascular Disease 01/03/22 documented as of this encounter
[2025-08-11] MEDS: Albuterol Sulfate 2.5 MG, Albuterol/Iprat 2.5/0.5MG 3 ML 3 ML INHALE (11:02)
[2025-08-11 11:06] VITALS: PULSE 91; RESP 19; O2SAT 99
[2025-08-11 12:00] VITALS: BP 118/84; PULSE 101; RESP 18; TEMP 36.9; O2SAT 95
[2025-08-11 12:11] VITALS: BP 118/84; PULSE 101; RESP 18; TEMP 36.9; O2SAT 95
== END 2025-08-11 12:12 | disposition home or self-care (01) ==
PROVIDERS: Emergency Provider Emergency Medicine; PCP Internal Medicine
DX: J11.1 Influenza due to unidentified influenza virus with other respiratory manifestations (principal); R06.02 Shortness of breath; R05.9 Cough, unspecified; R50.9 Fever, unspecified; Z03.818 Encounter for observation for suspected exposure to other biological agents ruled out
CPT/HCPCS: 71045; 87637; 94640; 99285

== ENCOUNTER → 2025-08-11 07:30 | Outpatient (BNV) | payer MEDICARE, MEDICAID, SELFPAY | PROVIDERS: Emergency Provider Emergency Medicine; PCP Internal Medicine; Visit Provider Specialist | DX: R05.9 Cough, unspecified (principal) | CPT/HCPCS: 71045 ==

== ENCOUNTER 2025-08-21 13:59 | Outpatient (AMB) | payer MEDICARE, MEDICAID, SELFPAY ==
--- OUTSIDE RECORDS SUMMARY | 2025-08-18 11:30 | XMS_ITS | Encounter Summary ---
Author Organization [facility] Address [address] [place] [address] Care Team Providers Care Carpenter Labor Supervisor Name Role Phone Frank Berry MD Primary Care Provider Reason for Referral * Orthopedic (Routine) - Pending Review Specialty Diagnoses / Procedures Referred By Contac t Referred To Contact Orthopedic Surgery / Orthopaedic Surgery Diagnoses Rotator cuff tendinitis, right Procedures L Inj/Asp: R subacromial bursa Casimiro Colindres MD [address] [place] [address] Phone: tel: fax: Referral ID Status Reason Start Date Expiration Date V isits Requested Visits Authorized [id number] Pending Review 08/18/2025 08/18/2026 1 1 * Consultation (Routine) - Pending Review Specialty Diagnoses / Procedures Referred By Akilah blakely Referred To Contact Physical Therapy Diagnoses Rotator cuff tendinitis, right Casimiro Colindres MD [address] [place] [address] Phone: tel: fax: Referral ID Status Reason Start Date Expiration Date Visits Requested Visits Authorized [id number] Pending Review Specialty Services Required 08/18/2026 16 16 Reason for Visit * Reason Comments Pain Consult * Consultation (Urgent) - Authorized Specialty Diagnoses / Procedures Referred By Akilah t Referred To Contact Orthopedic Surgery / Orthopaedic Surgery Diagnoses Acute pain of right shoulder Injury of right acromioclavicular joint, subsequent encounter Nic Macdonald, [employer]ATOR [address] [place] [address] Phone: tel: fax: Casimiro Colindres MD [address] [place] [id number] Phone: tel:[phone] fax:[phone] Referral ID Status Reason Start Date Expiration Date Visits Requested Visits Authorized [id number] Authorized Consult and Treat 07/26/2025 07/26/2026 1 1 Encounter Details Date Type Department Care Team ([facility] st Contact Info) Description 08/18/2025 11:30 AM EST Consult Orthopedic Surgery [address] [address] Casimiro Colindres MD [address] [place] [id number] Right shoulder pain (Primary Dx); Traumatic tear of right rotator cuff, unspecified tear extent, initial encounter; Rotator cuff tendinitis, right Social History Tobacco Use Types Packs/Day Years [...] your loved ones. For example, child and adolescent psychologist or elderly care for an older adult? [...] as of this encounter Progress Notes * Casimiro Colindres MD - 08/18/2025 11:30 AM ESTAssociated Order(s): L Inj/Asp: R subacromial bursa Post-Procedure Diagnose(s): Rotator cuff tendinitis, right Date: August 14, 2025 Chief Complaint: right shoulder pain Date of injury/duration of symptoms: acute on chronic after fall 3-4 weeks ago History of Present Illness The patient is a 60-year-old female RHD with past surgical history of shoulder arthroscopy and 2019for which she initially did well presenting for chronic right shoulder pain which worsened after a fall 3 to 4 weeks ago. She reports that her shoulder surgery in 2019 was for a tear in her rotator cuff but at that time they said did not see a tear and did a cleanout procedure. She experienced a severe fall in 2018, which resulted in a split landing on her crotch and subsequent radiating pain. This incident led to hip and spine surgeries. In 2018 or 2019, she underwent shoulder surgery due to a tear, which was less severe than initially anticipated. The procedure involvedcleaning out the area, which provided some relief. However, she continues to experience a sensationof her shoulder sliding in and out, which was not particularly painful until 3 to 4 weeks ago. A few weeks prior, she had another fall, landing on her hand and jamming her shoulder. Since this fall,She has had worsening shoulder pain and difficulty with some motions overhead. . he pain has been more severe since the recent fall. She reports that her shoulder never feels stable and that the sliding sensation was particularly bad before her surgery. She has been advised to undergo physical therapy but has not yet started as she wanted to attend this appointment first. She has expressed a desire to avoid further surgery. She has been undergoing extensive physical therapy, during which her therapist suggested the possibility of Hermes-Danlos syndrome due to the frequent dislocations of her joints. She reports that her shoulder occasionally dislocates, providing relief at times, but also causing sharp pain upon re-dislocation. She also mentions hyperextension in her elbows and knees and the ability to touch the floor with her fingers while standing straight. She has had two hip replacements. PAST SURGICAL HISTORY: Hip surgeries Spine surgeries Shoulder surgery in 2019 or 2020 Hip replacements SOCIAL HISTORY Alcohol: The patient consumes alcohol. FAMILY HISTORY - Mother: Rheumatoid arthritis Medical History[1] Surgical History[2] Family History[3] Social History Socioeconomic History Marital status: Single Spouse name: Not on file Number of children: Not on file Years of education: Not on file Highest education level: Not on file Occupational History Not on file Tobacco Use Smoking status: Former Current packs/day: 0.00 Types: Cigarettes Quit date: 09/07/2017 Years since quittin.9 Smokeless tobacco: Never Substance and Sexual Activity Alcohol use: Not Currently Drug use: Yes Types: Marijuana/Cannabis Sexual activity: Not Currently control/protection: Post-menopausal Other Topics Concern Not on file Social History Narrative Not on file Current Medications[4] Allergies[5] Objective Focused Exam: Right Upper Extremity well-healed incisions on the shoulder consistent with arthroscopy portals, otherwise skin is intact With full composite fist formation fingertip to distal palmar crease distance of 0 cm Fires Deltoid/Biceps/Triceps/EPL/FPL/FDP/IO SILT Ax/MSC/M/R/U palpable radial pulse AROM FF/abduction/ER/IR: 170/110/70/L5 painful but 5/5 strength with rotator cuff strength testing with resisted ER at 0 and 90 degrees ofabduction Supraspinatus: positive Pedro's Test Subscapularis: full strength with Bear hug Impingement: positive Neer's Test positive Hawkin's Test AC Joint: no TTP Biceps: positive Speed's test positive Yergason's test Demonstrates 7/9 Beighton Criteria with Hyper extension of her bilateral elbows, excision of her little finger MCP joint past 90 degrees bilaterally, bilateral knee hyperextension and the ability to touch her hands to the floor with her knees in extension. She does not demonstrate hypermobility of her thumbs at the carpometacarpal joint Imaging/diagnostic studies: 4 view x-rays of the right shoulder show no evidence of acute fracture or dislocation. There are moderate glenohumeral arthritic changes with marginal osteophyte formation at the inferior humeral head. There is narrowing of the subacromial outlet. There are additional degenerative changes at the acr omioclavicular joint. Soft tissue shadows appear normal. 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 She demonstrates good strength of her rotator cuff on exam but does have pain and findings of i mpingement consistent with likely rotator cuff tendinitis. I discussed her hypermobility and her shoulder pain. I reviewed her radiographs and explained her mild to moderate arthritis. I explained how Hermes-Danlos can frequently result in joint pain. Mainstay treatment usually involves physical therapy. She has had a more complicated history and does have radiographic findings of arthritis in her shoulder and possible rotator cuff pathology although she does have good strength today. I discussed her treatment options could include physical therapy activity modification nonsteroidal anti-inflammatory medication. Also discussed the risk and benefits of corticosteroid injections. Explained that corticosteroid injections can cause thinning of tissue but may help her participation in therapy and improve her symptoms. She voiced understanding and elected undergo a corticosteroid injection into her right shoulder and a course of physical therapy. She will follow-up in 6 to 8 weeks for new worsening or persistent symptoms. 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, previous shoulder arthroscopy with debridement and mild to moderate glenohumeral arthritis -Physical therapy with rotator cuff strengthening - Subacromial corticosteroid junction - Follow-up in 6 to 8 weeks for any worsening or persistent symptoms L Inj/Asp: R subacromial bursa Indications: pain Details: 22 G needle, posterior approach Medications: 40 mg triamcinolone acetonide 40 mg/mL; 4 mL lidocaine 1 % Outcome: tolerated well, no immediate complications Site was prepped in standard fashion using alcohol swab, sterile technique was used to perform the injection, the patient tolerated the procedure well and a band-aid dressing was applied Informed Consent: Site: Right subacromial Laterality: Right Relevant images/test results available and reviewed: yes Health status cleared: Yes Procedure/treatment, purpose, treatment alternatives, risks/potential complications and benefits explained: yes Risk/complications/benefits details: Risk/complications/benefits details: Risks and benefits of corticosteroid injection were discussed, including risk of pain, bleeding, infection, tissue attenuation, tendon rupture, changes in skin color, and injury to surrounding structures such as arteries, veins and nerves. We also discussed the patient may develop worsening pain for a few days before havingimprovement in their symptoms. Patient questions answered: yes Patient agrees, verbalizes understanding, and wants to proceed: yes Consent given by: Patient Informed consent discussion completed by Physician/BETH with patient: Verbal Pre-procedure timeout performed: yes Casimiro Colindres MD I have obtained verbal consent from Nina Forbesdavidmaya prior to the recording. I have advised Kirill Bella that she may refuse the recording and require the recording to be turned off at any time. [1] Past Medical History: Diagnosis Date Epilepsy (CMS/[facility] V24, CMS/[facility] V28) Hypertension Stroke (CMS/HCC V24, CMS/[facility] V28) Vitamin B12 deficiency 12/24/2023 DX:Vitamin B12 deficiency Vitamin B12 deficiency 12/24/2023 Vitamin D deficiency 12/24/2023 [2] Past Surgical History: Procedure Laterality Date APPENDECTOMY [...] PROCEDURE: HISTORICAL SHOULDER SURGERY; COMMENT: ? arthroscopy [3] Family History Problem Relation Name Age of Onset Other (Other: Sepsis) Mother Prostate cancer Father [facility] HTN Hypertension Father [facility] Hypertension Sister Violeta Hypertension Brother back issues Ovarian cancer Maternal Grandmother Pancreatic cancer Maternal Grandfather Breast cancer Paternal Grandmother 70s Heart attack Paternal Grandfather Dont know No Known Problems Son Celiac disease Daughter Alicja [4] Current Outpatient Medications: amitriptyline (ELAVIL) 25 mg tablet, Take 2 tablets (50 mg total) by mouth at bedtime. at bedtime Prescribed by Dr. Marcos, Disp: , Rfl: aspirin 81 mg EC tablet, Take 1 tablet (81 mg total) by mouth 1 (one) time each day. OTC, Disp: , Rfl: clindamycin (CLEOCIN) 300 mg capsule, Take 1 capsule (300 mg total) by mouth 4 (four) times a day. Prescribed by [facility], Disp: , Rfl: clonazePAM (KlonoPIN) 0.5 mg tablet, Take 1 tablet (0.5 mg total) by mouth 2 times daily as needed.Take 1/2 tablet Prescribed at [facility], Disp: , Rfl: DULoxetine (CYMBALTA) [address] capsule, Take 1 capsule (30 mg total) by mouth 1 (one) time each day. Prescribed at [facility], Disp: , Rfl: DULoxetine (CYMBALTA) [address] capsule, Take 1 capsule (60 mg total) by mouth 1 (one) time each day. Prescribed at [facility], Disp: , Rfl: hydroCHLOROthiazide (HYDRODIURIL) 25 mg tablet, Take 1 tablet (25 mg total) by mouth 1 (one) time each day. Prescribed by Dr. Marcos, Disp: , Rfl: lamoTRIgine (LaMICtal) 200 mg tablet, Take 1 tablet (200 mg total) by mouth 2 (two) times a day. Prescribed at [facility], Disp: , Rfl: magnesium oxide 250 mg magnesium tablet, Take 1 tablet (250 mg total) by mouth 1 (one) time each day. Prescribed by Dr. Marcos, Disp: , Rfl: methocarbamoL (ROBAXIN) 500 mg tablet, Take 1 tablet (500 mg total) by mouth 4 (four) times a day. Prescribed at Urgent Care, Disp: , Rfl: risperiDONE (RisperDAL) 0.25 mg tablet, Take 1 tablet (0.25 mg total) by mouth 1 (one) time each day. Prescribed at [facility], Disp: , Rfl: rosuvastatin (CRESTOR) 10 mg tablet, TAKE 1 TABLET BY MOUTH 1 TIME EACH DAY., Disp: 90 tablet, Rfl:1 SUMAtriptan (IMITREX) 50 mg tablet, Take 1 tablet (50 mg total) by mouth if needed for migraine. Prescribed by Dr. Marcos, Disp: , Rfl: valsartan (DIOVAN) 40 mg tablet, TAKE 1 TABLET BY MOUTH EVERY DAY, Disp: 90 tablet, Rfl: 1 zolpidem (AMBIEN) 10 mg tablet, Take 1 tablet (10 mg total) by mouth 1 (one) time each day. Prescribed at [facility], Disp: , Rfl: [5] Allergies Allergen Reactions Amoxicillin Hives and Rash rash Vibramycin [Doxycycline Calcium] Latex Itching C/O: itching C/O: itching Morphine Hives and Rash Other reaction(s): rash documented in this encounter Plan of Treatment Upcoming Encounters Date Type Department Care Team (Late st Contact Info) Description 10/16/2025 11:00 AM EST Office Visit Orthopedic Surgery - [place] [address] [facility] [address] [place] [address] Casimiro Colindres MD [address] [place] [address] 11/22/2025 10:20 AM EDT Office Visit [facility] [address] [facility] [address] [place] [address] Brian Bright MD [address] [place] [address] [address] [place] [address] Scheduled Referrals Name Type Priority Associated Diagnoses Order Schedule Ambulatory referral to Physical Therapy and Athletic Training Outpatient Referral Routine Rotator cuff tendinitis, right 1 Occurrences starting 08/18/2025 until 08/18/2026 documented as of this encounter Procedures Procedure Name Priority Date/Time Associated Diagnosis Comments OR ARTHROCENTESIS/ASPI RATION/INJECTION MAJOR JOINT/BURSA W/O U/S GUIDANCE Routine 08/18/2025 11:30 AM EST Rotator cuff tendinitis, right documented in this encounter Results * XR Shoulder 2+ Views Right (08/18/2025 11:58 AM EST) Anatomical Region Laterality Modality Upper Extremities, Shoulder Right Comp uted Radiography Narrative 08/18/2025 12:03 PM EST 4 view x-rays of the right shoulder show no evidence of acute fracture or dislocation. There are moderate glenohumeral arthritic changes with marginal osteophyte formation at the inferior humeral head. There is narrowing of the subacromial outlet. There are additional degenerative changes at the acromioclavicular joint. Soft tissue shadows appear normal. Impression: Degenerative changes as noted above of the glenohumeral and acromioclavicular joint, otherwise normal radiographic study without acute osseous abnormalities us Casimiro Colindres MD IMG XR PROCEDURES Edited Result - Final * OR ARTHROCENTESIS/ASPIRATION/INJECTION MAJOR JOINT/BURSA W/O U/S GUIDANCE (08/18/2025 11:30 AM EST) Casimiro Soto MD - 08/18/2025 11:30 AM EST Casimiro Colindres MD 08/18/2025 10:22 PM L Inj/Asp: R subacromial bursa Indications: pain Details: 22 G needle, posterior approach Medications: 40 mg triamcinolone acetonide 40 mg/mL; 4 mL lidocaine 1 % Outcome: tolerated well, no immediate complications Site was prepped in standard fashion using alcohol swab, sterile technique was used to perform the injection, the patient tolerated the procedure well and a band-aid dressing was applied Informed Consent: Site: Right subacromial Laterality: Right Relevant images/test results available and reviewed: yes Health status cleared: Yes Procedure/treatment, purpose, treatment alternatives, risks/potential complications and benefits explained: yes Risk/complications/benefits details: Risk/complications/benefits details: Risks and benefits of corticosteroid injection were discussed, including risk of pain, bleeding, infection, tissue attenuation, tendon rupture, changes in skin color, and injury to surrounding structures such as arteries, veins and nerves. We also discussed the patient may develop worsening pain for a few days before having improvement in their symptoms. Patient questions answered: yes Patient agrees, verbalizes understanding, and wants to proceed: yes Consent given by: Patient Informed consent discussion completed by Physician/BETH with patient: Verbal Pre-procedure timeout performed: yes us Casimiro Colindres MD IN CLINIC/BEDSIDE ORDERABLES Diogo al Result documented in this encounter Visit Diagnoses Diagnosis Right shoulder pain- Primary Pain in joint, shoulder region Traumatic tear of right rotator cuff, unspecified tear extent, initial encounter Rotator cuff tendinitis, right documented in this encounter Administered Medications Inactive Administered Medications - up to 3 most recent administrations Medication Order MAR Action Action Date Dose Rate Site lidocaine (XYLOCAINE) 1 % injection 4 mL 4 mL, Once PRN Procedure, Starting on Thu08/18/25 at 1130, For 1 doseIndications:Rotator cuff tendinitis, right Given 08/18/2025 11:30 AM EST 4 mL triamcinolone acetonide (KENALOG-40) 40 mg/mL injection 40 mg 40 mg, Once PRN Procedure, Starting on Thu08/18/25 at 1130, For 1 doseIndications:Rotator cuff tendinitis, right Given 08/18/2025 11:30 AM EST 40 mg documented in this encounter Orders Outpatient Referral Count Last Ordered Date Fir st Ordered Date AMB REFERRAL TO ORTHOPEDIC 1 08/18/2025 documented in this encounter Additional Health Concerns Assessment Noted Time PHQ-9 Depression Total Score: 0 03/14/20 4:46 PM EDT documented as of this encounter Care Teams Carpenter Labor Supervisor Relationship Specialty Start Date End Date Frank Berry MD [address] [place] [address] PCP - General Internal Medicine 03/15/25 documented as of this encounter
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
--- OUTSIDE RECORDS SUMMARY | 2025-08-21 20:22 | XMS_ITS | Encounter Summary ---
Author Organization [facility] Address [address] [place] [address] Care Team Providers Care Scaler Name Role Phone Diana Martinez Primary Care Provider [phone] Carl Goodman MD Unavailable Osmar Chicas MD Unavailable [phone] Encounter Details Date Type Department Care Team (Late st Contact Info) Description 10/12/2023 Scanned Document [facility] Department of Internal Medicine [place] [address] [place] [address] Diana Martinez PA [address] [place], [place] [id number] Social History Tobacco Use Types Packs/Day Years [...] on filedocumented in this encounter Care Teams Scaler Relationship Specialty Start Date End Date Diana Martinez PA [address] [place] [address] PCP - General 01/03/22 Carl Goodman MD [address] [address] Surgery, Orthopedic 01/03/22 Osmar Chicas MD [address] [address] Cardiovascular Disease 01/03/22 documented as of this encounter
--- OUTSIDE RECORDS SUMMARY | 2025-08-21 20:22 | XMS_ITS | Encounter Summary ---
Author Organization [facility] Address [address] [place] [address] Care Team Providers Care Table Games Dual Rate Supervisor Name Role Phone Diana Martinez Primary Care Provider [phone] Carl Goodman MD Unavailable Osmar Chicas MD Unavailable [phone] Encounter Details Date Type Department Care Team (Late st Contact Info) Description 10/23/2023 Scanned Document [facility] Department of Internal Medicine [place] [address] [place] [address] Diana Martinez PA [address] [place], [place] [id number] Social History Tobacco Use Types Packs/Day Years [...] on filedocumented in this encounter Care Teams Table Games Dual Rate Supervisor Relationship Specialty Start Date End Date Diana Martinez PA [address] [place] [address] PCP - General 01/03/22 Carl Goodman MD [address] [address] Surgery, Orthopedic 01/03/22 Osmar Chicas MD [address] [address] Cardiovascular Disease 01/03/22 documented as of this encounter
--- OUTSIDE RECORDS SUMMARY | 2025-08-21 20:22 | XMS_ITS | Encounter Summary ---
Author Organization [facility] Address [address] [place] [address] Care Team Providers Care Rn Women Services Name Role Phone Diana Martinez Primary Care Provider [phone]- [phone] Carl Goodman MD Unavailable Osmar Chicas MD Unavailable [phone] Encounter Details Date Type Department Care Team (Late st Contact Info) Description 12/07/2022 Scanned Document [facility] Department of Internal Medicine [place] [address] [place] [address] Diana Martinez PA [address] [place] [address] Social History Tobacco Use Types [...] on filedocumented in this encounter Care Teams Rn Women Services Relationship Specialty Start Date End Date Diana Martinez PA [address] [place], [place] [id number] PCP - General 01/03/22 Carl Goodman MD [address] [address] Surgery, Orthopedic 01/03/22 Osmar Chicas MD [address] [place] [id number] Cardiovascular Disease 01/03/22 documented as of this encounter
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
--- OUTSIDE RECORDS SUMMARY | 2025-08-21 20:22 | XMS_ITS | Encounter Summary ---
Author Organization [facility] Address [address] [place] [address] Care Team Providers Care Machine Skiver Name Role Phone Diana Martinez Primary Care Provider [phone] Carl Goodman MD Unavailable Osmar Chicas MD Unavailable [phone] Encounter Details Date Type Department Care Team (Late st Contact Info) Description 11/12/2022 Scanned Document [facility] Department of Internal Medicine [place] [address] [place] [address] Diana Martinez PA [address] [place] [address] Social History Tobacco Use Types [...] on filedocumented in this encounter Care Teams Machine Skiver Relationship Specialty Start Date End Date Diana Martinez PA [address] [place], [place] [id number] PCP - General 01/03/22 Carl Goodman MD [address] [address] Surgery, Orthopedic 01/03/22 Osmar Chicas MD [address] [place] [address] Cardiovascular Disease 01/03/22 documented as of this encounter
--- OUTSIDE RECORDS SUMMARY | 2025-08-21 20:22 | XMS_ITS | Encounter Summary ---
Author Organization [facility] Address [address] [place] [address] Care Team Providers Care Rn Transition Name Role Phone Diana Martinez Primary Care Provider [phone]- [phone] Carl Goodman MD Unavailable Osmar Chicas MD Unavailable [phone] Encounter Details Date Type Department Care Team (Late st Contact Info) Description 10/13/2023 Scanned Document [facility] Department of Internal Medicine [place] [address] [place] [address] Diana Martinez PA [address] [place], [place] [id number] Social History Tobacco Use Types Packs/Day Years [...] filedocumented in this encounter Care Teams Rn Transition Relationship Specialty Start Date End Date Diana Martinez PA [address] [place] [address] PCP - General 01/03/22 Carl Goodman MD [address] [address] Surgery, Orthopedic 01/03/22 Osmar Chicas MD [address] [address] Cardiovascular Disease 01/03/22 documented as of this encounter
--- OUTSIDE RECORDS SUMMARY | 2025-08-21 20:22 | XMS_ITS | Encounter Summary ---
Author Organization [facility] Address [address] [place] [address] Care Team Providers Care Inventory Assistant Name Role Phone Diana Martinez Primary Care Provider [phone]- [phone] Carl Goodman MD Unavailable Osmar Chicas MD Unavailable [phone] Encounter Details Date Type Department Care Team (Late st Contact Info) Description 12/01/2022 Scanned Document [facility] Department of Internal Medicine [place] [address] [place] [address] Diana Martinez PA [address] [place] [address] Social History Tobacco Use Types [...] on filedocumented in this encounter Care Teams Inventory Assistant Relationship Specialty Start Date End Date Diana Martinez PA [address] [place], [place] [id number] PCP - General 01/03/22 Carl Goodman MD [address] [address] Surgery, Orthopedic 01/03/22 Osmar Chicas MD [address] [place] [address] Cardiovascular Disease 01/03/22 documented as of this encounter
--- OUTSIDE RECORDS SUMMARY | 2025-08-21 20:23 | XMS_ITS | Data Portability ---
Author Organization [place] [facility] Carole Bee AONE [place] Address [address] [place] [address] Care Team Providers Care Ribbon Weaver Name Role Phone EDI LEONARD Referring Provider [phone] EDI LEONARD Primary Care Provider [phone] Assessment Encounter Date Assessment Date Assessment LastModified [...] schedule and hand carry CD 2023 024 [facility] ([facility]) , [address], [address], [place], [address], 4 08:00:28 XR, hip, unilateral, 2 or 3 view 2023 024 [facility], [address], [address], [place], [address], 4 10:00:11 XR, hip, unilateral, 2 or 3 view 2022 023 [email or web address] [facility], [address], [address], [place], [address], 3 12:15:14 Medication Orders prednisone 10 mg tablet 2023 024 [facility] #[id number], [address] [facility] , [place], [address], 4 13:46:49 Patient TargetsNo targets recorded. Patient Instructions Encounter Date Encounter Id Patient Instructions Last Modified By Organization Details Last Modified Time 12/04/2023 [id number] AP pelvis, AP an d lateral radiographs [...] is marrow edema within the acetab ulum stitching machine operator iorly with minima l adjace nt soft [...] joint effusi on. Marrow edema within the stitching machine operator ior acetab ulum with minima l adjace [...] blakely to us, Juan M vega MD [id number] (Elect maria fernanda quinn Signed - 2023 07:56) Copy: JORDANA Blakely , [email or web address] ([facility]) [address] [address], [place], [address], 01/07/2024 13:43:29 04/13/20 24 imagi ng/helio blakely [...] No concerning lytic or blastic osseous lesion. Ccfuh-ai-vlaesvpe right hip joint effusion. Small amount of fluid within the left greater trochanteric bursa, consistent with mild bursitis. Mild left gluteus medius and gluteus minimus tendinosis. Mild proximal left hamstring tendinosis. No transverse tendon tear or tendon retraction. No soft tissue mass. The visualized intrapelvic structures are grossly unremarkable. IMPRESSION: 1. Total right hip arthroplasty with a pzort-ya-vubuxvqp joint effusion. Marrow edema within the posterior [...] patient to us, Juan M Garcia MD [id number] (Electronically Signed - 01/05/2024 07:56) Copy: PATIENT , Terri Antoine argenis, [place] [facility] 01/07/2024 13:43:29 Problems Name Problem SNOMED Code Status Onset Date Resolution Date Notes Provider Name and Address Organization Details Recorded Time Body mass index 30+ - obesity 741226085 Active 2017 BMI 39.0-39.9 ,adult Not Available [facility] 5 00:27:53 Osteoarth ritis of left hip joint 96259493693 9108 Active 2017 Primary osteoarth ritis of left hip Not Available [facility] 5 00:27:55 Lumbar spondylol isthesis 79103812842 9102 Active 2018 Spondylol isthesis of lumbar region Not Available [facility] 5 00:27:52 Neck pain 05888884 Active 2018 Neck pain Not Available [facility] 5 00:27:53 Degenerat ion of cervical intervert ebral disc 07867231 Active 2018 Degenerat katie disc disease, cervical Not Available [facility] 5 00:27:54 Chronic low back pain 809724801 Active 2018 Chronic left-side d low back pain with left-side d sciatica Not Available [facility] 5 00:27:54 Cervical radiculop athy 93489960 Active 2018 Cervical radiculop athy Not Available [facility] 5 00:27:54 Pain of hip region 38493657 Active 2022 Clifton Esteban MD [address], [place], [address] , [place] [facility] 3 12:08:21 Osteoarth ritis of right hip joint 76927409255 9107 Active 2022 Osteoarth ritis of right hip Not Available [facility] 5 00:27:53 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 Procedures Surgical History Date Name Laterality Status Provider Name and Address Organization Details Recorded Time Hip Surgery completed Drew Gutierrez [place] [facility] 01/19/2023 14:11:38 Imaging Results None recorded. Procedure Notes None recorded. Medical Equipment None Reported. Allergies Allergen ID Allergen Name Allergen Category Reaction Reaction Severity Criticality Documentation Date Start Date Code Code System Note Provider Name and Address Organization Details Recorded Time 1296 gabapenti n medicatio n Not available Not available Not available 12/05/2022 66489 RxNorm Krystal [place] null, [place] [facility] 4 08:58:45 11162 morphine medicatio n Not available Not available Not available 12/04/2023 7052 RxNorm Krystal [place] null, [place] [facility] 4 08:58:51 34523 amoxicill in medicatio n Not available Not available Not available 12/04/2023 723 RxNorm Krystal [place] null, [place] [facility] 4 08:58:57 33546 Vibramyci n medicatio n Not available Not available Not available 12/04/2023 71634 5 RxNorm Krystal [place] null, [place] [facility] 4 08:59:05 64070 doxycycli ne Not available Not available Not available Not available 05/30/20252017 3640 RxNorm React ion: Other (See Comme nts), sever ity: Unkno wn;GI BLEED INGIn terna l bleed ing Not Available [facility] 5 01:25:30 31662 latex environme nt,medica tion Not available Not available Not available 05/30/20252021 99256 91 RxNorm React ion: Itchi ng, sever ity: Unkno wn;C/ O: itchi ng Not Available [facility] 5 01:25:31 94986 Iodinated contrast media (substanc e) medicatio n Not available Not available Not available 05/30/20252021 07282 2003 SNOMED React ion: Short ness Of Breat h, sever ity: Unkno wn;SO BHas recen tly had contr asted Dye witho ut react ion Not Available [facility] 5 01:25:31 Medications Name Sig Start [...] cm Krystal Varg[place]se [place] [facility] 12/04/2023 08:58:35 Date Recorded Body height Provider Name an d Address Organization Details Last Updated DateTime 01/08/2024 167.[address] [place] [facility] 01/08/2024 15:16:31 Date Recorded Body height Body mass index (BMI) Body weight Provider Name and Address Organization Details Last Updated DateTime 03/27/2023 167.64 cm 33.9 kg/m2 86938.[address] [place] [facility] 03/27/2023 09:40:02 Social History None recorded. [...] Diagnosis Note 3017 Clifton Esteban MD ILAN [address] [place] [address] 12/05/2022 10:48:48 12/05/2022 12:18:45 Pain of right hip joint 9298230114 30739 M25.551 Pain of hip region 66240 002 M25.551 Osteoarthr itis of right hip joint 1236492731 92047 M16.11 16037 ADALGISA ALMANZAR [place] [facility] [address] [address] 01/19/2023 14:09:20 01/19/2023 14:26:04 History of total replacement of right hip joint 6207651094 42238 Z96.641 20305 MD [facility] [address] [address] 02/17/2023 12:41:16 02/17/2023 13:28:28 Dislocation of hip joint prosthesis 302863076 Z96.649 97588 MD [facility] [place] [facility] [address] [address] 03/27/2023 09:26:25 03/27/2023 10:11:48 History of right hip replacement 1631045242 575122 Z96.641 Aftercare 495197260 Z47. 1 24895 MD [facility] [address] [address] 12/04/2023 08:43:03 12/04/2023 09:22:32 History of total replacement of right hip joint 9831008749 83817 Z96.641 Surgical follow-up 69017 4000 Z47.1 Z96.641 Additional diagnosis detail: Aftercare following right hip joint replacemen t surgery 64235 MD [facility] [address] [address] 12/22/2023 13:11:04 12/22/2023 13:38:26 History of total replacement of right hip joint 5157385169 96643 Z96.641 Pain of hip region 67868 002 M25.551 00848 MD [facility] [address] [address] 01/08/2024 15:06:37 01/08/2024 15:37:06 History of total replacement of right hip joint 7612762372 56277 Z96.641 Pain of hip region 43706 002 M25.551 78400 MD [facility] [address] [place] [address] 04/12/2024 13:20:58 04/12/2024 13:47:54 History of total replacement of right hip joint 9580932476 72614 Z96.641 Health Concerns Section Related Observation LastModified by Organization Detai ls LastModified Time None Recorded Concern Status LastModified by Organization Details LastModified Time None Recorded Advance Directives Directive None Recorded Payers Insurance Date Sequence Insurance Name Policy Number Policy Carty Covered Member ID Carty Member ID Guarantor Name 12/04/2023 1 [id number] Nina Bella [id number] Nina Bella 04/11/2024 1 [facility] (MEDICARE REPLACEMENT/ ADVANTAGE - HMO) [id number] Nina Bella [id number] Nina Bella OBGyn Episode No OBEpisode recorded.
--- OUTSIDE RECORDS SUMMARY | 2025-08-21 20:23 | XMS_ITS | Clinical Summary ---
Author Organization [facility] Prior to 02/04/25 Address [address] [place] [address] Care Team Providers Care Steam Tunnel Feeder Name Role Phone Diana Martinez Primary Care Provider [phone] Allergies Active Allergy Reactions Criticality Noted Date [...] this topic Medical Devices Implanted Type Area Peritoneal Dialysis Registered Nurse Device Identifier Shelf Expiration Date Model / Serial / Lot Surgiflo Hemostatic Matrix [facility] 2991-781222 - [id number] Implanted:Qty : 2 on 08/09/2021 by Andrea Polanco DO at [facility] Hemostatic Agent Anterior: Spine Cervical [facility] [employer] 11/04/2022 2991 / / [id number] Size 5 Standard Tapered Stem Cementless Implanted:Qty : 1 on 12/29/2022 by Clifton Esteban MD at [facility] Total Joint Right: Hip [id number] 10/01/2027 / / [id number] +4 Femoral Head Implanted:Qty : 1 on 12/29/2022 by Clifton Esteban MD at [facility] Total Joint Right: Hip [id number] 07/04/2026 / / [id number] Description:Carolina 36mm +4mm Acetabular Liner 36mm X 52\54 10 Hood E-Max - 135337 - [id number] Implanted:Qty : 1 on 04/07/2018 by Bairon Adame MD at [facility] Left: Hip RENOVI 09/19/2022 1523-365 -254 / / [id number] Cancellous Bone Screw 6.5mm X 20mm - 277549 - [id number] Implanted:Qty : 1 on 04/07/2018 by Bairon Adame MD at [facility] Left: Hip RENOVI 10/26/2022 1501-865 -020 / / [id number] Acetabular Bone Screw 6.5mm X 30mm - 002932 - [id number] Implanted:Qty : 1 on 04/07/2018 by Bairon Adame MD at [facility] Left: Hip RENOVI 08/22/2021 1501-865 -030 / / [id number] Stem Tapered Femoral Extended-Late ral Offset 6.75mm - 402289 - [id number] Implanted:Qty : 1 on 04/07/2018 by Bairon Adame MD at [facility] Left: Hip RENOVI 07/21/2022 1401-922 -067 / / [id number] Biolox Delta Ceramic Femoral Head Sz 36mm -4 - 228294 - [id number] Implanted:Qty : 1 on 04/07/2018 by Bairon Adame MD at [facility] Left: Hip RENOVI 03/03/2022 1451-036 -004 / / [id number] Plate Gooding 57mm 3 Level Bone Stry-K2m [id number] 60913 - [id number] Implanted:Qty : 1 on 08/09/2021 by Andrea Polanco DO at [facility] Anterior: Spine Cervical [employer] [id number] 57V / / Screw Gooding Self-Start 4x16mm Stry-K2m 8801-96750hc- 548361 - [id number] Implanted:Qty : 7 on 08/09/2021 by Andrea Polanco DO at [facility] Anterior: Spine Cervical [employer] 8801-040 16DA / / Screw Gooding 16mm 4.5mm Self St Stry-Howm 8801-78681mq- 642458 - [id number] Implanted:Qty : 1 on 08/09/2021 by Andrea Polanco DO at [facility] Anterior: Spine Cervical [facility] 8801-045 16DA / / Spacer Vikos 14.5x11.5x8mm 7d Stry-Spin 7088-18077h-8 15889 - [id number] Implanted:Qty : 1 on 08/09/2021 by Andrea Polanco DO at [facility] Anterior: Spine Cervical [employer] 06/12/2025 2504-214 08L / [id number] / Spacer Vikos 14.5x11.5x7mm 7d Stry-Spin 7007-83279t-0 30736 - [id number] Implanted:Qty : 1 on 08/09/2021 by Andrea Polanco DO at [facility] Anterior: Spine Cervical [employer] 10/24/2025 2504-214 07L / [id number] 1076 / Spacer Vikos 14.5x11.5x7mm 7d Stry-Spin 8955-04271w-6 29734 - [id number] Implanted:Qty : 1 on 08/09/2021 by Andrea Polanco DO at [facility] Anterior: Spine Cervical [employer] 08/02/2025 2504-214 07L / [id number] / Hip Cup Marie Tpr 52mm Sz3 Crng-Manu 321.03.352-63 6960 - [id number] Implanted:Qty : 1 on 12/29/2022 by Clifton Esteban MD at [facility] Right: Hip [employer] [id number] 10/13/2027 321.03.3 52 / / [id number] Screw Marie 6.5x25mm Crng-Manu 321.025-55435 7 - [id number] Implanted:Qty : 1 on 12/29/2022 by Clifton Esteban MD at [facility] Right: Hip [employer] [id number] 09/02/2027 321.025 / / [id number] Screw Marie 6.5x20mm Crng-Manu 321.020-28709 6 - [id number] Implanted:Qty : 1 on 12/29/2022 by Clifton Esteban MD at [facility] Right: Hip [employer] [id number] 10/02/2027 321.020 / / [id number] Marie Liner Ecima Neutral Offset Implanted:Qty : 1 on 12/29/2022 by Clifton Esteban MD at [facility] Right: Hip [employer] 10/29/2027 322.03.6 36 / / [id number] Explanted Type Area Peritoneal Dialysis Registered Nurse Device Identifier Shelf Expiration Date Model / Serial / Lot Acetabular Shell Cluster Hole Sz 54mm - [id number] - [id number] Implanted:Qty: 1 on 04/07/2018 by Bairon Adame MD at [facility] Explanted:Qty: 1 on 02/11/2023 at [facility] Left: Hip RENOVI 12/13/2021 1501-121 -05 3553-2 Advance Directives For more information, please contact: [phone] Documents on File Type Date Recorded Patient Health Data Administrator Expl anation Advance Directive and Living Will [...] in the following way: discussion with healthcare accounting representative . Full Code 08/09/2021 12:40 PM 08/12/2021 9:22 PM This code status was ascertained in the following way: discussion with patient . Care Teams Steam Tunnel Feeder Relationship Specialty Start Date End Date Diana Martinez PA [address] [place] [address] PCP - General Physician Recruiter 12/29/22
--- OUTSIDE RECORDS SUMMARY | 2025-08-21 20:23 | XMS_ITS | Encounter Summary ---
Author Organization [facility] Address [address] [place] [address] Care Team Providers Care Transit Mixer Operator Name Role Phone Frank Berry MD Primary Care Provider Encounter Details Date Type Department Care Team ([facility] Contact Info) Description 06/27/2025 Results Follow-Up Adult Medicine [facility] [address] [place] [address] Frank Berry MD [address] [place], [place] Social History Tobacco Use Types Packs/Day [...] care for your loved ones. For example, assistant child care teacher or elderly care for an older [...] AM EST Office Visit Orth[facility] - [place] [address] [place] [address] Casimiro Colindres MD [address] [place] [address] 11/22/2025 10:20 AM EDT Office Visit [facility] [address] [place] [address] Brian Bright MD [address] [place] [address] [address] [place] [address] documented as of this encounter Visit Diagnoses Not on filedocumented in this encounter Additional Health Concerns Assessment Noted Time PHQ-9 Depression Total Score: 0 03/14/20 25 4:46 PM EDT documented as of this encounter Care Teams Transit Mixer Operator Relationship Specialty Start Date End Date Frank Berry MD [address] [place] [address] PCP - General Internal Medicine 03/15/25 documented as of this encounter
--- OUTSIDE RECORDS SUMMARY | 2025-08-21 20:23 | XMS_ITS | Data Portability ---
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 [email or web address] Not available 11/13/2023 15:19:18 02/04/2024 02/04/2024 Patient is doing well status post C6-7 anterior cervical diskectomy with allograft fusion. She does have some lower back pain and radiculopathy to the right groin suspicious for L3 radiculopathy. Not available 02/04/2024 14:02:16 03/03/2024 03/03/2024 Patient is recovering with moderate reactivation of cervical spondylosis below the level of her fusion. [email or web address] Not available 03/03/2024 12:30:46 04/14/2024 04/14/2024 Patient is recovering status post anterior cervical discectomy with allograft fusion below the level of fusion at C6-7. [email or web address] Not available 04/14/2024 13:45:59 Plan of Treatment [...] serie s No observ ation record ed. [address], [address], 10/12/2023 10:26:42 10/11/19 24 10/09/2023 XR, spine , scoli osis serie s No observ ation record ed. [address], [address], 10/12/2023 10:34:03 10/21/19 24 10/20/2023 MRI, lumba r spine , w/o contr ast No observ ation record ed. [facility] ([facility] [address] [place], [address], 10/22/2023 13:51:34 10/21/19 24 10/20/2023 MRI, cervi thu spine , w/o contr ast No observ ation record ed. [facility] [address] [place], [address], 10/22/2023 13:51:35 01/18/20 24 01/13/2024 jimmie parmar am No observ ation record ed. [facility] Atention: Jose Rafael [address] [place], [address], 01/19/2024 09:17:55 01/22/20 24 01/18/2024 XR, cervi thu spine , 2 or 3 view No observ ation record ed. [facility] Atention: Jose Rafael [address] [place], [address], 01/26/2024 09:52:50 02/05/20 24 02/04/2024 XR, cervi thu spine , 2 or 3 view No observ ation record ed. [facility] (Medical Records) [address] [place], [address], 02/08/2024 10:04:41 02/05/20 24 02/04/2024 XR, cervi thu spine , 2 or 3 view No observ ation record ed. [facility] (Medical Records) [address] [place], [address], 02/08/2024 10:45:46 02/05/20 24 02/04/2024 XR, lumba r spine No observ ation record ed. [email or web address] Available 2023 10:45:23 02/05/20 24 02/04/2024 XR, lumba r spine No observ ation record ed. [facility] (Medical Records) [address] [place], [address], 02/08/2024 10:04:41 03/03/20 24 03/03/2024 XR, cervi thu spine , 2 or 3 view No observ ation record ed. [email or web address] [facility] (Medical Records) [address] [place], [address], 03/04/2024 09:49:59 03/03/20 24 03/03/2024 XR, cervi thu spine , 2 or 3 view No observ ation record ed. [email or web address] Available 2023 10:53:50 04/16/20 24 04/14/2024 XR, cervi thu spine , 2 or 3 view No observ ation record ed. [facility] [address] [place], [address], 04/18/2024 11:22:21 04/16/20 24 04/14/2024 XR, cervi thu spine , 2 or 3 view No observ ation record ed. [facility] [address] [place], [address], 04/18/2024 12:55:18 04/18/20 24 04/14/2024 XR, cervi thu spine , 2 or 3 view No observ ation record ed. [email or web address] Not Available 2023 11:08:46 04/18/20 24 04/14/2024 XR, cervi thu spine , 2 or 3 view No observ ation record ed. [facility] [address] [place] [address], [address], 04/20/2024 10:07:20 Result Notes None recorded. Problems Name Problem SNOMED Code Status Onset Date Resolution Date Notes Provider Name and Address Organization Details Recorded Time Spinal stenosis in cervical region 04684912 Active 024 DAVION Nuno [address] [place] [address], [address] , [facility] 4 15:19:08 Problem Notes None recorded. Procedures Surgical History Date Name Laterality Status Provider Name and Address Organization Details Recorded Time 3 total replacement of right hip joint completed Nabila Garcia [facility] 4 13:25:44 2 lumbar spinal fusion completed Nabila Garcia [facility] 02/04/2024 13:25:16 1 primary fusion of cervical spine completed Nabila Garcia [facility] 02/04/2024 13:25:01 0 shoulder surgery completed Nabila Garcia [facility] 02/04/2024 13:24:41 8 total replacement of left hip joint completed Nabila Garcia [facility] 02/04/2024 13:24:14 Imaging Results None recorded. Procedure Notes None recorded. Medical Equipment None Reported. Allergies Allergen ID Allergen Name Allergen Category Reaction Reaction Severity Criticality Documentation Date Start Date Code Code System Note Provider Name and Address Organization Details Recorded Time 9297573 amoxicill in medicatio n rash Not available Not available 02/04/2024 723 RxNorm Nabila more [facility] 4 13:23:28 3041556 morphine medicatio n rash Not available Not available 02/04/2024 7052 [facility] 13:23[facility]39 3034400 Vibramyci n medicatio n gi bleed Not available Not available 02/04/202424316 5 [facility] 13:23:50 Medications Name Sig Start [...] Updated DateTime 10/09/2023 167.64 cm 35.5 kg/m2 05772.32 g Nabila Garcia [facility] 10/09/2023 14:18:33 Date Recorded Body height Body mass index (BMI) Body weight Provider Name and Address Organization Details Last Updated DateTime 02/04/2024 167.64 cm 35.5 kg/m2 00427.32 g Nabila Garcia [facility] 02/04/2024 13:14:10 Social History None recorded. Functional Status None recorded. Mental Status None recorded. Family History Nothing Reported. Medical History Condition Response ARTHRITIS Y STROKE Y depression Y SEIZURE DISORDER Y HYPERTENSION Y ANXIETY DISORDER Y Gynecological HistoryNo gynecological history recorded. Obstetrics History GPAL:G 0 P 0 0 0 0 Past Encounters Encounter ID Performer Location Encounter Start Date Encounter Closed Date Diagnosis/Indication Diagnosis SNOMED-CT Code Diagnosis ICD10 Code Diagnosis IMO Codes Diagnosis Note [id number] Sonido Maldonado MD [facility] [address] [address] 10/09/2023 12:17:04 10/09/2023 15:45:27 Spinal stenosis in cervical region 98639905 M48.02 We discussed the potential benefit of a revision fusion at C6-7. [id number] Sonido Maldonado MD [facility] [address] [address] 11/13/2023 13:54:32 11/13/2023 15:02:23 Spinal stenosis in cervical region 83187235 M48.02 We discussed the potential benefit of [...] to the assessment and plan for details. [id number] DAVION Nuno [facility] [address] [address] 02/04/2024 12:13:22 02/04/2024 14:36:09 Spinal stenosis in cervical region 89714717 M48.02 She will resume normal activity. I recommend a course of physical therapy. She will transition from a hard collar to a soft collar today to wear as needed. All questions were answered in a mike candid manner. Follow up in 3-4 weeks with repeat cervical imaging Lumbar spondylosis 28044 0009 M47.896 I recommend she continue with conservati ve management . If pain worsens she could benefit from injections . All questions were answered. [id number] DAVION Nuno [facility] [address] [address] 03/03/2024 11:48:32 03/03/2024 12:06:03 Spinal stenosis in cervical region 79030842 M48.02 I recommend gentle increase in range of motion and exercise. I discussed the pathophysi ology and natural history in great detail. She will resume normal activity as tolerated. Follow-up as needed or interval basis. [id number] Sonido Maldonado MD [facility] [address] [address] 04/14/2024 12:10:58 04/14/2024 14:21:20 Spinal stenosis in cervical region 28254695 M48.02 She will continue to increase activity [...] Carty Member ID Guarantor Name 01/21/2024 1 [facility] (MEDICARE REPLACEMENT/A DVANTAGE - HMO) [id number] Nina Bella [id number] Nina Bella 06/14/2024 1 [facility] (MEDICARE REPLACEMENT/A DVANTAGE - PPO) [id number] Nina Bella [id number] Nina Bella 06/15/2024 2 MEDICAID-[place]: [facility] Nina Bella [id number] Nina Bella Notes Date Note Type Note [...] driving for 18 months. Sonido Maldonado MD [address] [place] [address], [phone], [facility] 10/09/2023 22:10:38 [...] it helps her sleep. Sonido Maldonado MD [address] [place] [address], [address], [facility] 11/13/2023 23:09:37 [...] is improved with rest. DAVION Nuno [address] [place], [address], [facility] 02/04/2024 14:26:17 [...] She denies fever or chills. DAVION Nuno [address] [place] [address], [phone], [facility] 03/03/2024 12:31:51 04/14/2024 text/html Ms. Bella [...] is doing well. Sonido Maldonado MD [address] [place], [address], [facility] 04/14/2024 21:27:20 OBGyn Episode No OBEpisode recorded.
--- OUTSIDE RECORDS SUMMARY | 2025-08-21 20:23 | XMS_ITS | Encounter Summary ---
Author Organization [facility] Address [address] [place] [address] Care Team Providers Care Black Oxide Coating Equipment Tender Name Role Phone Diana Martinez Primary Care Provider [phone] aCrl Goodman MD Unavailable Osmar Chicas MD Unavailable [phone] Encounter Details Date Type Department Care Team (Late st Contact Info) Description 08/25/2023 Scanned Document [facility] Department of Internal Medicine [place] [address] [place] [address] Diana Martinez PA [address] [place], [place] [address] Social History Tobacco Use Types Packs/Day Years [...] on filedocumented in this encounter Care Teams [employer] Coating Equipment Tender Relationship Specialty Start Date End Date Diana Martinez PA [address] [place] [address] PCP - General 01/03/22 Carl Goodman MD [address] [address] Surgery, Orthopedic 01/03/22 Osmar Chicas MD [address] [address] Cardiovascular Disease 01/03/22 documented as of this encounter
--- OUTSIDE RECORDS SUMMARY | 2025-08-21 20:23 | XMS_ITS | Encounter Summary ---
Author Organization [facility] Address [address] [place] [address] Care Team Providers Care Board Certified Orthodontist Name Role Phone Diana Martinez Primary Care Provider [phone] Carl Goodman MD Unavailable Osmar Chicas MD Unavailable [phone] Encounter Details Date Type Department Care Team (Late st Contact Info) Description 09/10/2023 Scanned Document [facility] Department of Internal Medicine [place] [address] [place] [address] Diana Martinez PA [address] [place], [place] [address] Social History Tobacco Use Types Packs/Day Years [...] on filedocumented in this encounter Care Teams Board Certified Orthodontist Relationship Specialty Start Date End Date Diana Martinez PA [address] [place] [address] PCP - General 01/03/22 Carl Goodman MD [address] [address] Surgery, Orthopedic 01/03/22 Osmar Chicas MD [address] [address] Cardiovascular Disease 01/03/22 documented as of this encounter
--- OUTSIDE RECORDS SUMMARY | 2025-08-21 20:23 | XMS_ITS | Clinical Summary ---
Author Organization [address] Address [address] [place] [address] [place] [address] Phone Care Team Providers Care Cooler Worker Name Role Phone Frank Berry MD [...] as needed. Take 1/2 tablet Prescribed at [facility] Active DULoxetine (CYMBALTA) [address] capsule Take 1 capsule (30 mg total) by mouth 1 (one) time each day. Prescribed at [facility] Active DULoxetine (CYMBALTA) [address] capsule Take 1 capsule (60 mg total) by mouth 1 (one) time each day. Prescribed at [facility] Active risperiDONE (RisperDAL) 0.25 mg tablet Take 1 tablet (0.25 mg total) by mouth 1 (one) time each day. Prescribed at [facility] Active lamoTRIgine (LaMICtal) 200 mg tablet Take 1 tablet (200 mg total) by mouth 2 (two) times a day. Prescribed at [facility] Active zolpidem (AMBIEN) 10 mg tablet Take 1 tablet (10 mg total) by mouth 1 (one) time each day. Prescribed at [facility] 0 Active rosuvastatin (CRESTOR) 10 mg tablet [...] 4 (four) times a day. Prescribed by [facility] Active hydroCHLOROthia zide (HYDRODIURIL) 25 mg [...] migraine. Prescribed by Dr. Marcos 5 Active Hospital, Clinic, or Other Facility Administered Medication Ordered Dose Route Frequency Start Date End Date Status lidocaine (XYLOCAINE) 1 % injection 4 mLIndications:Rotato r cuff tendinitis, right 4 mL Once PRN Procedure 08/18/2025 08/18/2025 Ended triamcinolone acetonide (KENALOG-40) 40 mg/mL injection 40 mgIndications:Rotato r cuff tendinitis, right 40 mg Once PRN Procedure 08/18/2025 08/18/2025 Ended Active Problems Problem Noted Date Diagnosed Date [...] Encounters Date Type Department Care Team Description 08/18/2025 11:30 AM EST Consult Orthopedic Surgery - [address] [address] Casimiro Colindres MD Right shoulder pain (Primary Dx); Traumatic tear of right rotator cuff, unspecified tear extent, initial encounter; Rotator cuff tendinitis, right 08/02/2025 Telephone Adult [address] [phone] Frank Berry MD 07/26/2025 2:30 PM EST Office Visit [address] [phone] Nic Macdonald, DANIELLA Acute pain of right shoulder (Primary Dx); Injury of right acromioclavicular joint, subsequent encounter; Generalized joint pain; Fall, subsequent encounter 07/25/2025 Telephone Adult Medicine [address] [phone] Poonam Herrera MA 07/24/[address] [phone] Frank Berry MD 06/27/2025 Results Follow-Up Adult [address] [phone] Frank Berry MD 06/23/2025 1:35 PM EDT - 06/23/2025 11:59 PM EDT Hospital [facility] [address] [address] Encounter for screening mammogram for breast cancer Discharge Disposition: Home or Self Care 06/09/2025 Telephone Adult [address] [phone] Frank Berry MD from Last 3 Months [...] deficiency 12/24/2023 Vitamin D deficiency 12/24/2023 Epilepsy ([facility] V24, [facility] V28) Stroke ([facility] V24, [facility] V28) Family History Medical History Relation Name [...] AM EST Office Visit Orthopedic Surgery - [place] [address] [facility] [address] [place] [address] Casimiro Colindres MD 175 [place] [address] 11/22/2025 10:20 AM EDT Office Visit [facility] [address] [facility] [address] [place] [address] Brian Bright MD [address] [place] [address] [address] [place] [address] Health Maintenance Due Date Last Done Comments Drug Screen 1965 Non-Opioid Controlled Substance Agreement 1965 RSV Immunization Adult Patients (1 - Risk [...] this topic Medical Devices Implanted Type Area Risk Compliance Manager Device Identifier Shelf Expiration Date Model / Serial / Lot Surgiflo Hemostatic Matrix [facility] [id number] Implanted:Qty : 2 on 08/09/2021 by Andrea Polanco DO Implants N/A: Spine Cervical [facility] [employer] 11/04/2022 2991 / / [id number] Size 5 Standard Tapered Stem Cementless Implanted:Qty : 1 on 12/29/2022 by Clifton Esteban MD Joints Right: Hip [id number] 10/01/2027 / / [id number] +4 Femoral Head Implanted:Qty : 1 on 12/29/2022 by Clifton Esteban MD Joints Right: Hip [id number] 07/04/2026 / / [id number] Description:Renata 36mm +4mm Spacer Vikos 14.5x11.5x8mm 7d Stry-Spin [id number] 91685 - [id number] Implanted:Qty : 1 on 08/09/2021 by Andrea Polanco DO N/A: Spine Cervical [employer] 06/12/2025 2504-214 08L / [id number] / Spacer Vikos 14.5x11.5x7mm 7d Stry-Spin [id number] 96669 - [id number] Implanted:Qty : 1 on 08/09/2021 by Andrea Polanco DO N/A: Spine Cervical [employer] 10/24/2025 2504-214 07L / [id number] / Spacer Vikos 14.5x11.5x7mm 7d Stry-Spin [id number] 62642 - [id number] Implanted:Qty : 1 on 08/09/2021 by Andrea Polanco DO N/A: Spine Cervical [employer] 08/02/2025 2504-214 07L / [id number] / Plate Rowan 57mm 3 Level Bone Stry-K2m [id number] Implanted:Qty : 1 on 08/09/2021 by Andrea Polanco DO N/A: Spine Cervical [employer] [id number] 57V / / Screw Rowan Self-Start 4x16mm Stry-K2m [id number]- [id number] Implanted:Qty : 7 on 08/09/2021 by Andrea Polanco DO N/A: Spine Cervical [employer] 8801-040 16DA / / Screw Rowan 16mm 4.5mm Self St Stry-Howm [id number]- [id number] Implanted:Qty : 1 on 08/09/2021 by Andrea Polanco DO N/A: Spine Cervical [employer] 8801-045 16DA / / Screw Marie 6.5x20mm Crng-Manu 321.020-89099 6 Implanted:Qty : 1 on 12/29/2022 by Clifton Esteban MD Right: Hip [employer] [id number] 10/02/2027 321.02 0 2711 Marie Liner Ecima Neutral Offset Implanted:Qty : 1 on 12/29/2022 by Clifton Esteban MD Right: Hip [employer] 10/29/2027 322.03.6 36 1603 Hip Cup Marie Tpr 52mm Sz3 Crng-Manu 321.03.352-63 6960 Implanted:Qty : 1 on 12/29/2022 by Clifton Esteban MD Right: Hip [employer] [id number] 10/13/2027 321.03 .3 52 214428 Screw Marie 6.5x25mm Crng-Manu 321.025-69642 7 Implanted:Qty : 1 on 12/29/2022 by Clifton Esteban MD Right: Hip [employer] [id number] 09/02/2027 321.02 5 202 Procedures Procedure Name Priority Date/Time Associated Diagnosis Comments XR SHOULDER 2+ VIEWS RIGHT Routine 08/18/2025 11:58 AM EST Right shoulder pain MA ARTHROCENTESIS/ASPIRATI ON/INJECTION MAJOR JOINT/BURSA W/O U/S GUIDANCE Routine 08/18/2025 11:30 AM EST Rotator cuff tendinitis, right MG MAMMO DIGITAL SCREENING W BRAYDON BILAT [...] Recently Relevant to Health Maintenance Results * XR Shoulder 2+ Views Right [...] normal radiographic study without acute osseous abnormalities Casimiro Colindres MD IMG XR PROCEDURES Edited Result - Final * MA ARTHROCENTESIS/ASPIRATION/INJECTION MAJOR JOINT/BURSA W/O U/S GUIDANCE (08/18/2025 11:30 AM EST) Narrative Casimiro Colindres MD - 08/18/2025 11:30 AM EST Casimiro [...] us Casimiro Colindres MD IN CLINIC/BEDSIDE ORDERABLES Fin al Result * MG Mammo Digital Screening w Braydon bilat (06/23/2025 2:06 PM EDT) Anatomical Region Laterality Modality Breast Bilateral Mammography 06/26/2025 1:24 PM EDT Impressions 06/26/2025 2:07 PM EDT Benign. BI-RADS CATEGORY: 1 - NEGATIVE RECOMMENDATION: Screening bilateral mammogram is recommended in 1 year. Mammo Location: [facility], [address] [place] [address], [address], . -------- FINAL REPORT -------- Dictated By: Juan M Wheatley Dictated Date: 06/26/2025 13:24 ET Assigned Physician: Juan M Wheatley Reviewed and Electronically Signed By: Juan M Wheatley Signed Date: 06/26/2025 14:07 ET Workstation ID: [id number] Transcribed By: Self Edit Transcribed Date: 06/26/2025 [...] year. Mammo Location: [facility], [address] [place] [address], [facility] [place], . -------- FINAL REPORT -------- Dictated By: Juan M Wheatley Dictated Date: 06/26/2025 13:24 ET Assigned Physician: Juan M Wheatley Reviewed and Electronically Signed By: Juan M Wheatley Signed Date: 06/26/2025 14:07 ET Workstation ID: [id number] Transcribed By: Self Edit Transcribed Date: 06/26/2025 13:25 ET us Self Referral Sppl IMG BI PROCEDURES Final Resul t * Lipid panel with reflex to direct LDL (03/16/2025 8:24 AM EDT) Cholesterol 194 0 - 200 mg/dL LAB CHEMISTRY METHOD 03/16/2025 12:05 PM EDT [facility] Triglycerides 114 0 - 150 mg/dL LAB CHEMISTRY METHOD 03/16/2025 12:05 PM EDT [facility] HDL 98 >=40 mg/dL LAB CHEMISTRY METHOD 03/16/2025 12:05 PM EDT [facility] LDL Calculated 73 0 - 100 mg/dL LAB CHEMISTRY METHOD 03/16/2025 12:05 PM EDT [facility] VLDL Cholesterol Jai 22.8 mg/dL LAB CHEMISTRY METHOD 03/16/2025 12:05 PM [facility] Non HDL Chol. (LDL+VLDL) 96 <145 mg/dL LAB CHEMISTRY METHOD 03/16/2025 12:05 PM [facility] Chol/HDL Ratio 2.0 0.0 - 4.4 LAB CHEMISTRY METHOD 03/16/2025 12:05 PM [facility] Blood Venous blood specimen / Unknown Venipuncture / Unknown 03/16/2025 8:24 AM EDT 03/16/2025 8:24 AM EDT us Frank Berry MD LAB BLOOD ORDERABLES Final Result [facility] [address] [place] [address], [place] [phone] * (ABNORMAL) Comprehensive metabolic panel (03/16/2025 8:24 AM EDT) Sodium 141 133 - 145 mmol/L LAB CHEMISTRY METHOD 03/16/2025 12:03 PM [facility] Potassium 3.9 3.5 - 5.5 mmol/L LAB CHEMISTRY METHOD 03/16/2025 12:03 PM [facility] Chloride 106 96 - [...] 03/16/2025 12:03 PM [facility] AST (SGOT) 18 10 - 42 unit/L LAB CHEMISTRY METHOD 03/16/2025 12:03 PM [facility] ALT (SGPT) 25 10 [...] 12:03 PM [facility] Total Bilirubin 0.4 0.0 - 1.4 mg/dL LAB CHEMISTRY METHOD 03/16/2025 12:03 PM [facility] Blood Venous blood specimen / Unknown Venipuncture / Unknown 03/16/2025 8:24 AM EDT 03/16/2025 8:24 AM EDT us Frank Berry MD LAB BLOOD ORDERABLES Final Result [facility] [address] [place] [address], [place] [phone] * HIV 1,2 antibody, p24 antigen with reflex to differentiation (08/12/2024 7:54 AM EST) [facility] HIV Combo AB/AG Negative Negative LAB CHEMISTRY METHOD 08/12/2024 10:52 AM EST [facility] Blood Venous blood specimen / Unknown Venipuncture / Unknown 08/12/2024 7:54 AM EST 08/12/2024 7:54 AM EST Narrative [facility] - 08/12/2024 10:52 AM [...] MD LAB BLOOD ORDERABLES F inal Result [facility] [address] [place] [address], [place] [phone] * Hepatitis C Screening (12/24/2023) [facility] Hepatitis C Screening abstracted Historical Provider HEALTH MAINTENANCE Final Result * Colonoscopy (03/18/2021) [facility] Colonoscopy no interpretation , abstracted Anatomical Region Laterality Modality Other Historical Sher NATHAN HEALTH MAINTENANCE Final Result from Last 3 Months or Most Recently Relevant to Health Maintenance Insurance MEDICAID - [place] [employer] MEDICARE Care Teams Cooler Worker Relationship Specialty Start Date End Date Frank Berry MD [address] [place] [address] PCP - General Internal Medicine 03/15/25
--- OUTSIDE RECORDS SUMMARY | 2025-08-21 20:23 | XMS_ITS | Encounter Summary ---
Author Organization [facility] Address [address] [place] [address] Care Team Providers Care Developing Machine Operator Name Role Phone Brian Chong APRN Primary Care Provider [phone] Diana Martinez Primary Care Provider + [phone] Carl Goodman MD Unavailable Osmar Chicas MD Unavailable [phone] Encounter Details Date Type Department Care Team (Late st Contact Info) Description 10/04/2018 Scanned Document [facility] [place] at [address] [phone] Spine Surgery, Scan Social History Tobacco Use [...] on filedocumented in this encounter Care Teams Developing Machine Operator Relationship Specialty Start Date End Date Brian Chong APRN [address] [place] [address] PCP - General Adult Health - PA/APNP/DIRECTOR RIVER RESTORATION/ELECTRIC FURNACE OPERATOR 09/29/18 01/02/22 Diana Martinez PA [address] [place] [id number] PCP - General 01/03/22 Carl Goodman MD [address] [address] Surgery, Orthopedic 01/03/22 Osmar Chicas MD [address] [facility] [address] [place] [id number] Cardiovascular Disease 01/03/22 documented as of this encounter
--- OUTSIDE RECORDS SUMMARY | 2025-08-21 20:24 | XMS_ITS | Encounter Summary ---
Author Organization [facility] Address [address] [place] [address] Care Team Providers Care Program Control Analyst Name Role Phone Diana Martinez Primary Care Provider [phone] Carl Goodman MD Unavailable Osmar Chicas MD Unavailable [phone] Encounter Details Date Type Department Care Team (Late st Contact Info) Description 05/28/2023 Scanned Document [facility] Department of Internal Medicine [place] [address] [place] [address] Diana Martinez PA [address] [place], [place] [phone] Social History Tobacco Use Types Packs/Day Years [...] filedocumented in this encounter Care Teams Program Control Analyst Relationship Specialty Start Date End Date Diana Martinez PA [address] [place] [address] PCP - General 01/03/22 Carl Goodman MD [address] [address] Surgery, Orthopedic 01/03/22 Osmar Chicas MD [address] [address] Cardiovascular Disease 01/03/22 documented as of this encounter
--- OUTSIDE RECORDS SUMMARY | 2025-08-21 20:24 | XMS_ITS | Clinical Summary ---
Author Organization [facility] Address [address] [place] [address] Care Team Providers Care Ring Cutter Lathe Operator Name Role Phone Diana Martinez Primary Care Provider [phone] Carl Goodman MD Unavailable Osmar Chicas MD Unavailable [phone] Allergies Active Allergy Reactions Criticality Noted Date [...] this topic Medical Devices Implanted Type Area Machine Bander And Cellophaner Device Identifier Shelf Expiration Date Model / Serial / Lot 193.334 Spacer Spinal [id number] Rise-L 10d Nonst - [id number] Implanted:Qty: 2 on 02/05/2022 by Carl Goodman MD at [facility] Cage N/A: Spine Lumbar [employer] [id number] / / 6.5x55 Voyager Mas Screw Implanted:Qty: 2 on 02/05/2022 by Carl Goodman MD at [facility] Screw N/A: Spine Lumbar [employer] [id number] / / [id number] Screw Set 5.5/6mm Cd Hzn Soleral Vygr Nonst Lf - [id number] Implanted:Qty: 6 on 02/05/2022 by Carl Goodman MD at [facility] Screw N/A: Spine Lumbar [employer] [id number] / / [id number] Screw Bone Spine Cd Hzn Vygr 50mm 6.5mm Ma Nonst 5.5mm Nestor - [id number] Implanted:Qty: 2 on 02/05/2022 by Carl Goodman MD at [facility] Spine N/A: Spine Lumbar [employer] [id number] / / [id number] Screw Bone Spine Cd Hzn Vygr 45mm 6.5mm Ma Nonst 5.5mm Nestor - [id number] Implanted:Qty: 2 on 02/05/2022 by Carl Goodman MD at [facility] Spine N/A: Spine Lumbar [employer] [id number] / / [id number] Tab Fixation 5.5/6mm Spine Physician Extender Sleeve - [id number] Implanted:Qty: 12 on 02/05/2022 by Carl Goodman MD at [facility] Spine N/A: Spine Lumbar [employer] [id number] / / [id number] Graft Bone 23mm 14mm Infs Sm Spine Rhbmp-2 Bvn Collagen - [id number] Implanted:Qty: 1 on 02/05/2022 by Carl Goodman MD at [facility] Tissue N/A: Spine Lumbar [employer] 06/06/2024 [id number] / / [id number] Graft Bone Kore Fiber Marcial Bone Fiber 5cc Algrf Mld High - [id number] Implanted:Qty: 1 on 02/05/2022 by Carl Goodman MD at [facility] Tissue N/A: Spine Lumbar [employer] 02/21/2024 [id number] / [id number] / 5.5/6.0 Sv Cap Implanted:Qty: 6 on 02/05/2022 by Carl Goodman MD at [facility] N/A: Spine Lumbar [employer] [id number] / / 5.5 Ccm Prec Nestor 80mm Implanted:Qty: 2 on 02/05/2022 by Carl Goodman MD at [facility] N/A: Spine Lumbar [employer] [id number] / / Explanted Type Area Machine Bander And Cellophaner Device Identifier Shelf Expiration Date Model / Serial / Lot [id number] Screw Bone Spine Schnz 120mm 4mm - [id number] Explanted:Qty: 1 on 02/05/2022 at [facility] Spine N/A: Spine Lumbar [employer] [id number] / / Description:supply item Insurance [facility] Advance Directives * Full Code (Latest Code Status on File) Date Activated Date Inactivated Comments 02/05/2022 6:30 PM * Full Code Date Activated Date Inactivated Comments 02/05/2022 10:09 AM 02/05/2022 6:30 PM Care Teams Ring Cutter Lathe Operator Relationship Specialty Start Date End Date Diana Martinez PA [address] [place] [address] [place] [address] PCP - General 01/03/22 Carl Goodman MD [address] [place] [address] Surgery, Orthopedic 01/03/22 Osmar Chicas MD [address] [place] [address] [place] [address] Cardiovascular Disease 01/03/22
--- OUTSIDE RECORDS SUMMARY | 2025-08-21 20:24 | XMS_ITS | Patient Health Record ---
Author Organization [facility] Address [address] [place] [address] Care Team Providers Care Sales Effectiveness Manager Name Role Phone Floyd Romero Primary Care Provider Aleisha Holguin Unavailable [phone] Allergies Allergen (clinical drug ingredient) Drug/Non Drug [...] W/U Status Risk Notes Problem Plantar fibromatosis (64301336) Plantar fibromatosis (M72.2) Active confirmed Problem Plantar fascial fibromatosis (32026747) Plantar fasciitis, bilateral (M72.2) Active confirmed Vital Signs Blood pressure diastolic 80 mm Hg 09/21/2024 Height 5ft6in in 09/21/2024 Blood pressure systolic 120 mm Hg 09/21/2024 Weight 190 lbs 09/21/2024 BMI 30.66 kg/m2 09/21/2024 Encounters Encounter Location Date Provider Diagnosis [facility] [place] [address] [place] [address] 09/21/2024 Aleisha Mahan Plantar fibromatosis M72.2 Assessments Encounter Date Diagnosis (ICD Code) Assessment Notes Treatment Notes Treatment Clinical Notes Section Notes 09/21/2024 Plantar fibromatosis (ICD-10 - M72.2) 09/21/2024 Other Plan Of Treatment No Information Insurance Providers Payer Name Payer Address Payer Phone Subscriber Number Group Number Insured Name Patient Relationship to Insured Coverage Start Date Coverage End Date [employer] Medicare [id number] [address] [address] [place] [phone] [id number] Nina Bella Self - patient is the insured Medical (General) History Medical History History ICD Code Arthritis Back,Hip,and Knee pain Depression Seizures High Blood Pressure Numbness Chicken pox Joint implants/screws Surgical History Surgery Date(Month/Year) hip replacement back fusions endoscopy 07/12/24 colonoscopy 07/08/24
--- OUTSIDE RECORDS SUMMARY | 2025-08-21 20:24 | XMS_ITS | Data Portability ---
Author Organization [facility] [address] Address [address] [place] [address] Care Team Providers Care Supply Chain Assistant Name Role Phone EDI LEONARD Primary Care Provider Assessment No assessment recorded. Plan of Treatment Reminders Order Date Submit Date Provider Last Modified By Organization Details Last Modified Time Details Appointments None recorded. Lab None recorded. Referral None recorded. Procedures None recorded. Surgeries None recorded. Imaging None recorded. Medication Orders ketorolac 30 mg/mL (1 mL) injection solution 2022 023 [email or web address] Not available 13:25:22 Patient TargetsNo targets recorded. Patient Instructions Encounter Date Encounter Id Patient Instructions Last Modified By Organization Details Last Modified Time 11/30/2022 [id number] hip pain: care instructions [email or web address] Not available 11/30/2022 13:17:22 Reason for Referral None Reported. 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 2022 TOBY TEJADA null, [place] - [facility] 3 12:54:37 Traumatic brain injury 620407576 Active 2022 TOBY TEJADA null, [place] - [facility] 3 12:54:50 Seizure disorder 810848918 Active 2022 TOBY more, [place] - [facility] 3 12:55:09 Vertigo 500002327 Active 2022 TOBY TEJADA null, PA - [...] Name and Address Organization Details Recorded Time 114461 amoxicill in medicatio n rash Not available Not available 11/30/2022 723 RxNorm TOBY TEJADA null, [place] - [facility] 3 12:50:18 901568 morphine medicatio n rash Not available Not available 11/30/2022 7052 RxNorm TOBY TEJADA null, [place] - [facility] 3 12:50:30 424677 Vibramyci n medicatio n gi bleed Not available Not available 11/30/2022 80909 5 RxNorm TOBY TEJADA null, PA - [...] Updated DateTime 3 167.64 cm 34.5 kg/m2 16609.7 7 g 79 /min 97 % 18 /min 98.3 [degF] 117/78 mm[Hg] TOBY TEJADA PA - [facility] 12:58:57 Social History Question Answer Notes LastModified by Organizat ion Details LastModified Time Tobacco Smoking Status Never Smoker TOBY more [place] - [facility] 11/30/2022 12:57:35 Which Illicit Or Recreational Drugs Have You Used? Cbd Oil [email or web address] Information not available 11/30/2022 Have You Recently Traveled Abroad? No Information not available 11/30/2022 Sex: Unknown Functional Status Question Answer Note LastModified by Organizat ion Details LastModified Time Do you use any illicit or recreational drugs? Yes Information not available 11/30/2022 Do you or have you ever used any other forms of tobacco or nicotine? No [email or web address] Information not available 11/30/2022 What is your level of alcohol consumption? None Information not available 11/30/2022 Mental Status None recorded. Family History Nothing Reported. Medical History No medical history recorded. Gynecological HistoryNo gynecological history recorded. Obstetrics History GPAL:G 0 P 0 0 0 0 Past Encounters Encounter ID Performer Location Encounter Start Date Encounter Closed Date Diagnosis/Indication Diagnosis SNOMED-CT Code Diagnosis ICD10 Code Diagnosis IMO Codes Diagnosis Note [id number] [address] [place] [address] 07/15/2016 17:08:30 07/15/2016 17:46:27 [id number] [address] [place] [address] 05/02/2018 14:17:45 05/02/2018 15:36:19 [id number] [address] [facility] [place] [address] 03/27/2019 18:05:44 03/27/2019 18:42:56 [id number] [address] [place] [address] 02/15/2019 08:37:37 02/15/2019 09:00:52 [id number] [address] [facility] [place] [address] 12/30/2017 09:27:49 12/30/2017 10:05:50 [id number] [address] [place] [address] 09/13/2019 17:37:31 09/13/2019 19:09:59 [id number] [address] [place] [address] 07/13/2016 13:41:57 07/13/2016 15:06:16 [id number] [address] [place] [address] 01/02/2018 08:18:58 01/02/2018 09:11:25 [id number] [address] [place] [address] 03/01/2018 08:30:18 03/01/2018 09:38:51 [id number] [address] [place] [address] 05/19/2018 08:20:14 05/19/2018 08:49:28 [id number] Jeremy Moses DO [address] [place] [address] 11/30/2022 12:33:28 11/30/2022 13:40:19 Pain of right hip joint 3520821104 64479 M25.551 recommend resttyleno l 1 g every 8 htrial of im toradol x 1Reviewed with patient potential adverse side effects of the medication .call treating ortho in [place] for evaluation Patient advised to follow up [...] Carty Member ID Guarantor Name 11/30/2022 1 [facility] [id number] Nina Bella [id number] Nina Bella 11/30/2022 1 [facility] [id number] Nina Bella [id number] Nina Bella Notes Date Note Type Note Provider Name and Address Organization Details Recorded Time 11/30/2022 text/html Thigh / HipReported by [email or web address] yo female c/o R hip pain+ h/o [...] [place] [address] [place], [address], [place] - [facility] 11/30/2022 14:31:47 OBGyn Episode No OBEpisode recorded.
--- OUTSIDE RECORDS SUMMARY | 2025-08-21 20:24 | XMS_ITS | Encounter Summary ---
Author Organization [facility] Address [address] [place] [address] Care Team Providers Care Recovery Unit Operator Name Role Phone Diana Martinez Primary Care Provider [phone] Carl Goodman MD Unavailable Osmar Chicas MD Unavailable [phone] Encounter Details Date Type Department Care Team (Late st Contact Info) Description 12/18/2022 Scanned Document [facility] Department of Internal Medicine [place] [address] [place] [address] Diana Martinez PA [address] [place] [address] Social History Tobacco Use Types [...] on filedocumented in this encounter Care Teams Recovery Unit Operator Relationship Specialty Start Date End Date Diana Martinez PA [address] [place] [address] [place], [place] [id number] PCP - General 01/03/22 Carl Goodman MD [address] [address] Surgery, Orthopedic 01/03/22 Osmar Chicas MD [address] [place] [id number] Cardiovascular Disease 01/03/22 documented as of this encounter
--- OUTSIDE RECORDS SUMMARY | 2025-08-21 20:24 | XMS_ITS | Encounter Summary ---
Author Organization [facility] Address [address] [place] [address] Care Team Providers Care Grain Mill Worker Name Role Phone Diana Martinez Primary Care Provider [phone] Carl Goodman MD Unavailable Osmar Chicas MD Unavailable [phone] Encounter Details Date Type Department Care Team (Late st Contact Info) Description 12/15/2022 Scanned Document [facility] Department of Internal Medicine [place] [address] [place] [address] Diana Martinez PA [address] [place] [address] Social History Tobacco Use Types [...] on filedocumented in this encounter Care Teams Grain Mill Worker Relationship Specialty Start Date End Date Diana Martinez PA [address] [place] [place], [place] [id number] PCP - General 01/03/22 Carl Goodman MD [address] [address] Surgery, Orthopedic 01/03/22 Osmar Chicas MD [address] [place] [id number] Cardiovascular Disease 01/03/22 documented as of this encounter
--- OUTSIDE RECORDS SUMMARY | 2025-08-21 20:24 | XMS_ITS | Encounter Summary ---
Author Organization [facility] Address [address] [place] [address] Care Team Providers Care Software Support Analyst Name Role Phone Diana Martinez Primary Care Provider [phone] Carl Goodman MD Unavailable Osmar Chicas MD Unavailable [phone] Encounter Details Date Type Department Care Team (Late st Contact Info) Description 02/10/2023 Scanned Document [facility] Department of Internal Medicine [place] [address] [place] [address] Diana Martinez PA [address] [place], [place] [id number] Social History Tobacco Use Types Packs/Day Years [...] filedocumented in this encounter Care Teams Software Support Analyst Relationship Specialty Start Date End Date Diana Martinez PA [address] [place] [address] PCP - General 01/03/22 Carl Goodman MD [address] [address] Surgery, Orthopedic 01/03/22 Osmar Chicas MD [address] [address] Cardiovascular Disease 01/03/22 documented as of this encounter
== END 2025-08-21 14:00 | disposition home or self-care (01) ==
LOC: HO.HOP 13:59
PROVIDERS: PCP Internal Medicine; Visit Provider Clinical Nurse Specialist Psychiatric/Mental Health
DX: F33.1 Major depressive disorder, recurrent, moderate (principal); F41.1 Generalized anxiety disorder; F43.12 Post-traumatic stress disorder, chronic
CPT/HCPCS: 99213